=== PATIENT | female | born 1950 | race Caucasian/White ===

== ENCOUNTER → 2017-04-08 | Outpatient (REF) | payer MEDICARE, MEDICAID ==
[~2017-04-08] MED LIST: /MOXI40TA OR; ALB2.5NEB INH; ALBUPOW9 INH; ALLO300T OR; ALLO300T2 PO; ASPI81TA21 PO; ASPI81TA45 OR; ASPI81TA51 PO; ASPI81TA85 PO; AUGM500T34 PO; BUPR100T6 PO; CALC0.25 PO; CALC0.5C PO; COLA100C2 OR; DOC-8.6T PO; DOCU10ELUD PO; DOXY150C PO; FERR325T OR; FERR325T3 PO; FOLI1TAB86 PO; FURO80TA2 OR; FURO80TA2 PO; GABA300C2 PO; GABA600T3 OR; GLUC1000 OR; IPRA2IN INH; LASI80TA PO; LOPR100T OR; LOPR100T PO; MAGN400T5 PO; MAGNESIUM OXIDE PO; MECL-68 PO; METO100T PO; MICR10CA PO; NIAS10003 OR; NIASPAN PO; OXYGEN; PARO10TA10 PO; PAXI40TA OR; PLAV75TA2 OR; POTA20TA2 OR; PRED10TA2 PO; PRIL20CA PO; SIMV20TA2 OR; SIMV20TA2 PO; SITA50TAB PO; VICO5TAB PO; colcrys PO; januvia PO; losartin PO
== END ==
LOC: M LAB REF 13:04
PROVIDERS: ATTEND Internal Medicine Nephrology
DX: N39.0 Urinary tract infection, site not specified (principal)

== ENCOUNTER → 2017-04-09 | Outpatient (REF) | payer MEDICARE, MEDICAID ==
[2017-04-09 17:27] LABS: BASO % 0.4 % (0.0-1.0); EOS # 1.4 K/mm3 (0.0-0.50); EOS % 13.2 % (0.0-3.0); LARGE UNSTAINED CELL # 0.3 K/mm3 (0.0-0.4); LARGE UNSTAINED CELL % 2.8 % (0.0-4.0); LYMPH # 2.7 K/mm3 (1.5-4.5); LYMPH % 26.3 % (24.0-44.0); MEAN CORPUSCULAR HEMOGLOBIN 34.2 pg (27.0-33.0); MEAN CORPUSCULAR VOLUME 106.8 fl (80.0-96.0); MONO # 0.6 K/mm3 (0.0-0.8); MONO % 5.7 % (0.0-5.0); NEUTROPHILS # 5.4 K/mm3 (1.8-7.7); NEUTROPHILS % 51.7 % (36.0-66.0); PLATELET COUNT, AUTOMATED 249 k/mm3 (150-450); RED CELL DISTRIBUTION WIDTH 15.5 % (11.5-14.5); WHITE BLOOD COUNT 10.4 K/mm3 (4.0-10.0)
[2017-04-09 17:32] LABS: ADD MORPHOLOGY? YES
[2017-04-09 17:53] LABS: ALBUMIN/GLOBULIN RATIO 0.73 (1.00-1.93); BILIRUBIN,TOTAL 0.6 MG/DL (0.2-1.0); CALCIUM LEVEL 8.9 MG/DL (8.8-10.2); CREATININE FOR GFR 1.43 MG/DL (0.55-1.02); FREE T4 1.04 NG/DL (0.76-1.46); GLOMERULAR FILTRATION RATE 39.2 (>45); POTASSIUM SERUM 4.6 MEQ/L (3.5-5.1); TOTAL PROTEIN 7.1 GM/DL (6.4-8.2); URIC ACID 5.3 MG/DL (2.6-6.0)
== END ==
LOC: M LABDRAWC 16:22
PROVIDERS: ATTEND Family Medicine
DX: E11.22 Type 2 diabetes mellitus with diabetic chronic kidney disease (principal); N18.3 Chronic kidney disease, stage 3 (moderate); M10.9 Gout, unspecified; E66.01 Morbid (severe) obesity due to excess calories; E78.2 Mixed hyperlipidemia

== ENCOUNTER → 2017-06-28 | Outpatient (REF) | payer MEDICARE, MEDICAID | LOC: M LAB REF 17:14 | PROVIDERS: ATTEND Physician Assistant | DX: R39.0 Extravasation of urine (principal) ==

== ENCOUNTER → 2017-10-25 | Outpatient (CLI) | payer MEDICARE, MEDICAID ==
--- NOTE | 2017-10-25 15:22 | REP ---
Clinical: Pain and draining wound. Technique: AP, lateral, bilateral oblique views of the right elbow. Findings: The patient is status post open reduction and fixation for distal humeral fracture. No acute fracture dislocation. No subcutaneous emphysema. No significant foreign body. Lateral view best demonstrates mild swelling surrounding the distal humerus. Impression: Swelling. No acute fracture dislocation. No subcutaneous emphysema. Signed by Aakash Richard MD 10/25/2017 03:12 P
== END ==
LOC: M CLY 13:55
PROVIDERS: ATTEND Physician Assistant
DX: M25.521 Pain in right elbow (principal)

== ENCOUNTER 2017-11-27 18:59 | Inpatient (IN) | payer MEDICARE, MEDICAID ==
[2017-11-27 20:42] LABS: HEMATOCRIT 34.6 % (36.0-47.0); HEMOGLOBIN 11.5 g/dl (12.0-16.0); MEAN CORPUSCULAR HGB CONC 33.2 g/dl (32.0-36.5); MEAN CORPUSCULAR VOLUME 99.1 fl (80.0-96.0); PLATELET COUNT, AUTOMATED 147 10^3/uL (150-450); RED BLOOD COUNT 3.49 10^6/uL (4.00-5.40); WHITE BLOOD COUNT 19.2 10^3/uL (4.0-10.0)
[2017-11-27 20:56] LABS: ALBUMIN 2.1 GM/DL (3.2-5.2); ALKALINE PHOSPHATASE 120 U/L (45-117); ALT/SGPT 13 U/L (12-78); ANION GAP 9 MEQ/L (8-16); AST/SGOT 17 U/L (7-37); BILIRUBIN,DIRECT 0.4 MG/DL (0.0-0.2); BILIRUBIN,TOTAL 1.3 MG/DL (0.2-1.0); BLOOD UREA NITROGEN 62 MG/DL (7-18); CALCIUM LEVEL 9.2 MG/DL (8.8-10.2); CARBON DIOXIDE LEVEL 28 MEQ/L (21-32); CHLORIDE LEVEL 105 MEQ/L (98-107); CREATININE FOR GFR 3.28 MG/DL (0.55-1.02); GLUCOSE, FASTING 156 MG/DL (80-110); POTASSIUM SERUM 4.2 MEQ/L (3.5-5.1); SODIUM LEVEL 142 MEQ/L (136-145); TOTAL PROTEIN 6.3 GM/DL (6.4-8.2)
[2017-11-27 21:02] LABS: ADD MANUAL DIFFER YES; DIFF SLIDE NUMBER 183; LEFT SHIFT POS FLAG; POSITIVE MORPH POS FLAG; WBC SCAT POS FLAG
[2017-11-27] MEDS: CLINDAMYCIN 900 MG in APPROPRIATE DILUENT 1 EA IV (21:15)
[2017-11-27 21:16] LABS: ERYTHROCYTE SEDIMENTATION RATE 70 mm/hr (0-30)
[2017-11-27 21:43] LABS: EOSINOPHILS 1 % (0-5); LYMPHOCYTES 6 % (16-52); MONOCYTES 4 % (0-8); NEUTROPHILS 89 % (35-75); PLATELET ESTIMATE NORMAL (NORMAL)
[2017-11-27 22:41] LABS: LACTIC ACID SEPSIS PROTOCOL 3.7 MMOL/L (0.4-2.0)
[2017-11-27] MEDS: NS 500 ML IV (23:00)
[2017-11-28] MEDS: DILUENT IV
[2017-11-28] MEDS: CEFTAROLINE FOSAMIL IV
[2017-11-28] MEDS ORDERED: GLUCAGON FOR INJ 1 MG VIAL (J1610) SC (01:00)
[2017-11-28] MEDS: SODIUM CHLORIDE 0.9% 1000 ML IV (01:00)
[2017-11-28] MEDS ORDERED: DEXTROSE 50% 50 ML SYRINGE IV (01:00)
[2017-11-28] MEDS ORDERED: GLUCOSE 4 GM CHEW TABLET PO (01:00)
[2017-11-28] MEDS: SIMVASTATIN 20 MG TAB PO ×2 (02:45→21:25)
[2017-11-28 03:10] LABS: OSMOLALITY SERUM 313 MOSM/KG (280-301)
[2017-11-28 05:49] LABS: OSMOLALITY URINE 395 MOSM/KG (500-800)
[2017-11-28 05:50] LABS: APPEARANCE, URINE HAZY (CLEAR); BACTERIA, URINE AUTO NEGATIVE (NEGATIVE); BILIRUBIN, URINE AUTO NEGATIVE (NEGATIVE); BLOOD, URINE BLOOD NEGATIVE (NEGATIVE); COLOR, URINE YELLOW (YELLOW); GLUCOSE, URINE (UA) AUTO NEGATIVE (NEGATIVE); KETONE, URINE AUTO NEGATIVE (NEGATIVE); LEUKOCYTE ESTERASE, URINE AUTO 2+ (NEGATIVE); NITRITE, URINE AUTO NEGATIVE (NEGATIVE); PROTEIN, URINE AUTO NEGATIVE (NEGATIVE); RBC, URINE AUTO 2 /HPF (0-3); SPECIFIC GRAVITY URINE AUTO 1.012 (1.002-1.035); SQUAMOUS EPITHELIAL CELL UR AU 3 /HPF (0-6); TRANSITIONAL EPITHELIAL AUTO 1 /HPF; UROBILINOGEN, URINE AUTO 0.2 mg/dL (0.0-2.0); WBC, URINE AUTO 13 /HPF (0-3)
[2017-11-28] MEDS: HEPARIN SOD (PORCINE) 5000 UNITS/ML VIAL SC ×3 (05:53→21:29)
[2017-11-28 06:01] LABS: CREATININE,RANDOM URINE 84.6 MG/DL; SODIUM,RANDOM URINE 13 MEQ/L
[2017-11-28 06:50] LABS: HEMATOCRIT 32.2 % (36.0-47.0); HEMOGLOBIN 10.8 g/dl (12.0-16.0); MEAN CORPUSCULAR HEMOGLOBIN 32.7 pg (27.0-33.0); MEAN CORPUSCULAR HGB CONC 33.5 g/dl (32.0-36.5); MEAN CORPUSCULAR VOLUME 97.6 fl (80.0-96.0); PLATELET COUNT, AUTOMATED 141 10^3/uL (150-450); RED CELL DISTRIBUTION WIDTH 14.7 % (11.5-14.5); WHITE BLOOD COUNT 18.2 10^3/uL (4.0-10.0)
[2017-11-28 07:12] LABS: ANION GAP 9 MEQ/L (8-16); BLOOD UREA NITROGEN 58 MG/DL (7-18); CALCIUM LEVEL 8.8 MG/DL (8.8-10.2); CARBON DIOXIDE LEVEL 27 MEQ/L (21-32); CHLORIDE LEVEL 107 MEQ/L (98-107); CREATININE FOR GFR 2.95 MG/DL (0.55-1.02); GLUCOSE, FASTING 171 MG/DL (80-110); POTASSIUM SERUM 4.1 MEQ/L (3.5-5.1); SODIUM LEVEL 143 MEQ/L (136-145)
[2017-11-28] MEDS: HumaLOG INSULIN (NovoLOG) PER UNIT SC ×4 (07:30→21:00)
[2017-11-28] MEDS: PIPERACILLIN/TAZOBACTAM SOD 2.25 GM in APPROPRIATE DILUENT 1 EA IV ×3 (10:00→21:29)
[2017-11-28] MEDS: guaiFENesin ER 600 MG TAB PO ×2 (10:27→21:25)
[2017-11-28] MEDS: FLUoxetine 20 MG CAP PO (10:27)
[2017-11-28] MEDS: buPROPion (WELLBUTRIN SR) 100 MG SR TAB PO ×2 (10:27→21:25)
[2017-11-28] MEDS: ASPIRIN 81 MG ENTERIC TAB PO (10:27)
[2017-11-28] MEDS: ONDANSETRON 4MG/2ML VIAL (J2405) IV (10:28)
[2017-11-28] MEDS: METOPROLOL TARTRATE 100 MG TAB PO (10:28)
[2017-11-28] MEDS: VANCOMYCIN HCL 1,000 MG, VIAL MATE ADAPTER 1 EACH in D5W 250 ML IV (11:00)
[2017-11-28 12:01] LABS: BEDSIDE GLUCOSE 144 MG/DL (80-115)
[2017-11-28 17:26] LABS: BEDSIDE GLUCOSE 96 MG/DL (80-115)
[2017-11-28] MEDS: SENOKOT S TAB PO (21:25)
[2017-11-28 21:44] LABS: BEDSIDE GLUCOSE 114 MG/DL (80-115)
[2017-11-28 21:48] LABS: POTASSIUM RANDOM URINE 39.1 MEQ/L
[2017-11-29] MEDS: PIPERACILLIN/TAZOBACTAM SOD 2.25 GM in APPROPRIATE DILUENT 1 EA IV ×4 (04:28→21:46)
[2017-11-29] MEDS: HEPARIN SOD (PORCINE) 5000 UNITS/ML VIAL SC ×3 (05:23→21:46)
[2017-11-29] MEDS: VANCOMYCIN HCL 750 MG, VIAL MATE ADAPTER 1 EACH in D5W 250 ML IV ×2 (05:23→18:11)
[2017-11-29 07:09] LABS: HEMATOCRIT 31.5 % (36.0-47.0); HEMOGLOBIN 10.4 g/dl (12.0-16.0); MEAN CORPUSCULAR HEMOGLOBIN 32.4 pg (27.0-33.0); MEAN CORPUSCULAR VOLUME 98.1 fl (80.0-96.0); PLATELET COUNT, AUTOMATED 138 10^3/uL (150-450); RED BLOOD COUNT 3.21 10^6/uL (4.00-5.40); RED CELL DISTRIBUTION WIDTH 14.6 % (11.5-14.5); WHITE BLOOD COUNT 11.7 10^3/uL (4.0-10.0)
[2017-11-29] MEDS: HumaLOG INSULIN (NovoLOG) PER UNIT SC ×4 (07:30→20:18)
[2017-11-29 07:42] LABS: ANION GAP 7 MEQ/L (8-16); BLOOD UREA NITROGEN 55 MG/DL (7-18); CALCIUM LEVEL 9.1 MG/DL (8.8-10.2); CARBON DIOXIDE LEVEL 27 MEQ/L (21-32); CHLORIDE LEVEL 108 MEQ/L (98-107); CREATININE FOR GFR 2.62 MG/DL (0.55-1.02); GLOMERULAR FILTRATION RATE 19.5 (>45); GLUCOSE, FASTING 131 MG/DL (80-110); POTASSIUM SERUM 3.5 MEQ/L (3.5-5.1); SODIUM LEVEL 142 MEQ/L (136-145)
[2017-11-29] MEDS: METOPROLOL TARTRATE 100 MG TAB PO (08:28)
[2017-11-29] MEDS: buPROPion (WELLBUTRIN SR) 100 MG SR TAB PO ×2 (08:28→20:23)
[2017-11-29] MEDS: ASPIRIN 81 MG ENTERIC TAB PO (08:28)
[2017-11-29] MEDS: FLUoxetine 20 MG CAP PO (08:28)
[2017-11-29] MEDS: guaiFENesin ER 600 MG TAB PO ×2 (08:28→20:23)
[2017-11-29 12:22] LABS: BEDSIDE GLUCOSE 92 MG/DL (80-115)
[2017-11-29 17:13] LABS: BEDSIDE GLUCOSE 111 MG/DL (80-115)
[2017-11-29 20:13] LABS: BEDSIDE GLUCOSE 119 MG/DL (80-115)
[2017-11-29] MEDS: SIMVASTATIN 20 MG TAB PO (20:23)
[2017-11-29] MEDS: SENOKOT S TAB PO (20:23)
[2017-11-29] MEDS: ONDANSETRON 4MG/2ML VIAL (J2405) IV (23:58)
[2017-11-29] MEDS: ACETAMINOPHEN TAB 650MG DOSE (2X325MG) PO (23:59)
[2017-11-30] MEDS: PIPERACILLIN/TAZOBACTAM SOD 2.25 GM in APPROPRIATE DILUENT 1 EA IV ×4 (03:46→22:15)
[2017-11-30 05:29] LABS: HEMATOCRIT 30.9 % (36.0-47.0); HEMOGLOBIN 10.3 g/dl (12.0-16.0); MEAN CORPUSCULAR HEMOGLOBIN 32.7 pg (27.0-33.0); MEAN CORPUSCULAR HGB CONC 33.3 g/dl (32.0-36.5); MEAN CORPUSCULAR VOLUME 98.1 fl (80.0-96.0); PLATELET COUNT, AUTOMATED 164 10^3/uL (150-450); RED BLOOD COUNT 3.15 10^6/uL (4.00-5.40); RED CELL DISTRIBUTION WIDTH 14.7 % (11.5-14.5); WHITE BLOOD COUNT 9.5 10^3/uL (4.0-10.0)
[2017-11-30] MEDS: VANCOMYCIN HCL 750 MG, VIAL MATE ADAPTER 1 EACH in D5W 250 ML IV ×2 (05:33→17:31)
[2017-11-30] MEDS: HEPARIN SOD (PORCINE) 5000 UNITS/ML VIAL SC ×3 (05:34→22:14)
[2017-11-30 05:54] LABS: ALBUMIN 1.8 GM/DL (3.2-5.2); ALBUMIN/GLOBULIN RATIO 0.55 (1.00-1.93); ALKALINE PHOSPHATASE 169 U/L (45-117); ALT/SGPT 18 U/L (12-78); ANION GAP 9 MEQ/L (8-16); AST/SGOT 34 U/L (7-37); BILIRUBIN,TOTAL 2.2 MG/DL (0.2-1.0); BLOOD UREA NITROGEN 47 MG/DL (7-18); CARBON DIOXIDE LEVEL 26 MEQ/L (21-32); CHLORIDE LEVEL 108 MEQ/L (98-107); GLOMERULAR FILTRATION RATE 23.8 (>45); GLUCOSE, FASTING 89 MG/DL (80-110); POTASSIUM SERUM 3.5 MEQ/L (3.5-5.1); SODIUM LEVEL 143 MEQ/L (136-145); TOTAL PROTEIN 5.1 GM/DL (6.4-8.2); VANCOMYCIN LEVEL TROUGH 17.6 UG/ML (10.0-20.0)
[2017-11-30] MEDS: HumaLOG INSULIN (NovoLOG) PER UNIT SC ×4 (07:30→21:00)
[2017-11-30] MEDS: guaiFENesin ER 600 MG TAB PO ×2 (09:01→22:13)
[2017-11-30] MEDS: buPROPion (WELLBUTRIN SR) 100 MG SR TAB PO ×2 (09:01→22:13)
[2017-11-30] MEDS: ASPIRIN 81 MG ENTERIC TAB PO (09:01)
[2017-11-30] MEDS: METOPROLOL TARTRATE 100 MG TAB PO (09:01)
[2017-11-30] MEDS: FLUoxetine 20 MG CAP PO (09:01)
[2017-11-30] MEDS: ONDANSETRON 4MG/2ML VIAL (J2405) IV ×2 (10:11→15:53)
[2017-11-30 12:00] LABS: BEDSIDE GLUCOSE 173 MG/DL (80-115)
[2017-11-30] MEDS: SENOKOT S TAB PO (22:13)
[2017-11-30] MEDS: SIMVASTATIN 20 MG TAB PO (22:14)
[2017-12-01 03:12] LABS: BEDSIDE GLUCOSE 147 MG/DL (80-115)
[2017-12-01 03:12] LABS: BEDSIDE GLUCOSE 117 MG/DL (80-115)
[2017-12-01] MEDS: PIPERACILLIN/TAZOBACTAM SOD 2.25 GM in APPROPRIATE DILUENT 1 EA IV ×2 (04:08→09:16)
[2017-12-01] MEDS: HEPARIN SOD (PORCINE) 5000 UNITS/ML VIAL SC ×3 (05:46→20:49)
[2017-12-01] MEDS: VANCOMYCIN HCL 750 MG, VIAL MATE ADAPTER 1 EACH in D5W 250 ML IV (05:46)
[2017-12-01 06:43] LABS: HEMATOCRIT 30.9 % (36.0-47.0); HEMOGLOBIN 10.4 g/dl (12.0-16.0); MEAN CORPUSCULAR HEMOGLOBIN 32.6 pg (27.0-33.0); MEAN CORPUSCULAR HGB CONC 33.7 g/dl (32.0-36.5); MEAN CORPUSCULAR VOLUME 96.9 fl (80.0-96.0); PLATELET COUNT, AUTOMATED 202 10^3/uL (150-450); RED BLOOD COUNT 3.19 10^6/uL (4.00-5.40); RED CELL DISTRIBUTION WIDTH 14.7 % (11.5-14.5); WHITE BLOOD COUNT 10.3 10^3/uL (4.0-10.0)
[2017-12-01 07:02] LABS: ANION GAP 9 MEQ/L (8-16); BLOOD UREA NITROGEN 38 MG/DL (7-18); CALCIUM LEVEL 8.5 MG/DL (8.8-10.2); CARBON DIOXIDE LEVEL 24 MEQ/L (21-32); CHLORIDE LEVEL 108 MEQ/L (98-107); CREATININE FOR GFR 2.08 MG/DL (0.55-1.02); GLOMERULAR FILTRATION RATE 25.4 (>45); GLUCOSE, FASTING 113 MG/DL (80-110); POTASSIUM SERUM 3.9 MEQ/L (3.5-5.1); SODIUM LEVEL 141 MEQ/L (136-145)
[2017-12-01] MEDS: HumaLOG INSULIN (NovoLOG) PER UNIT SC ×4 (07:31→20:01)
[2017-12-01] MEDS: buPROPion (WELLBUTRIN SR) 100 MG SR TAB PO ×2 (09:11→20:01)
[2017-12-01] MEDS: ASPIRIN 81 MG ENTERIC TAB PO (09:11)
[2017-12-01] MEDS: guaiFENesin ER 600 MG TAB PO ×2 (09:11→20:01)
[2017-12-01] MEDS: FLUoxetine 20 MG CAP PO (09:12)
[2017-12-01] MEDS: METOPROLOL TARTRATE 100 MG TAB PO (09:14)
[2017-12-01] MEDS: DOXYCYCLINE HYCLATE 100 MG TAB PO ×2 (11:02→20:01)
[2017-12-01 12:15] LABS: BEDSIDE GLUCOSE 156 MG/DL (80-115)
[2017-12-01] MEDS: LACTOBACILLUS ACIDOPHILUS CAP (BACID) PO (17:29)
[2017-12-01 18:43] LABS: BEDSIDE GLUCOSE 150 MG/DL (80-115)
[2017-12-01] MEDS: SIMVASTATIN 20 MG TAB PO (20:01)
[2017-12-01] MEDS: SENOKOT S TAB PO (20:01)
[2017-12-01 20:25] LABS: BEDSIDE GLUCOSE 160 MG/DL (80-115)
[2017-12-02] MEDS: HEPARIN SOD (PORCINE) 5000 UNITS/ML VIAL SC (05:19)
[2017-12-02 07:12] LABS: HEMATOCRIT 30.9 % (36.0-47.0); HEMOGLOBIN 10.4 g/dl (12.0-16.0); MEAN CORPUSCULAR HEMOGLOBIN 32.8 pg (27.0-33.0); MEAN CORPUSCULAR HGB CONC 33.7 g/dl (32.0-36.5); MEAN CORPUSCULAR VOLUME 97.5 fl (80.0-96.0); PLATELET COUNT, AUTOMATED 218 10^3/uL (150-450); RED BLOOD COUNT 3.17 10^6/uL (4.00-5.40); RED CELL DISTRIBUTION WIDTH 14.7 % (11.5-14.5); WHITE BLOOD COUNT 8.3 10^3/uL (4.0-10.0)
[2017-12-02 07:27] LABS: ANION GAP 9 MEQ/L (8-16); BLOOD UREA NITROGEN 32 MG/DL (7-18); CALCIUM LEVEL 8.7 MG/DL (8.8-10.2); CARBON DIOXIDE LEVEL 24 MEQ/L (21-32); CHLORIDE LEVEL 110 MEQ/L (98-107); CREATININE FOR GFR 1.83 MG/DL (0.55-1.02); GLOMERULAR FILTRATION RATE 29.5 (>45); GLUCOSE, FASTING 117 MG/DL (80-110); POTASSIUM SERUM 3.4 MEQ/L (3.5-5.1); SODIUM LEVEL 143 MEQ/L (136-145)
[2017-12-02] MEDS: buPROPion (WELLBUTRIN SR) 100 MG SR TAB PO (08:31)
[2017-12-02] MEDS: DOXYCYCLINE HYCLATE 100 MG TAB PO (08:31)
[2017-12-02] MEDS: ASPIRIN 81 MG ENTERIC TAB PO (08:31)
[2017-12-02] MEDS: guaiFENesin ER 600 MG TAB PO (08:31)
[2017-12-02] MEDS: LACTOBACILLUS ACIDOPHILUS CAP (BACID) PO ×2 (08:31→12:32)
[2017-12-02] MEDS: FLUoxetine 20 MG CAP PO (08:31)
[2017-12-02] MEDS: METOPROLOL TARTRATE 100 MG TAB PO (08:31)
[2017-12-02] MEDS: HumaLOG INSULIN (NovoLOG) PER UNIT SC ×2 (08:32→12:31)
[2017-12-02 12:23] LABS: BEDSIDE GLUCOSE 187 MG/DL (80-115)
== END 2017-12-02 14:15 | disposition home or self-care (01) | DRG 872 ==
LOC: M ED INP 11-28 00:11 → M MS5PR 11-28 02:30 → M ED 18:59
DX: A41.9 Sepsis, unspecified organism (principal); L03.116 Cellulitis of left lower limb; I50.32 Chronic diastolic (congestive) heart failure; I13.0 Hypertensive heart and chronic kidney disease with heart failure and stage 1 through stage 4 chronic kidney disease, or unspecified chronic kidney disease; N17.9 Acute kidney failure, unspecified; E87.2 Acidosis; E66.2 Morbid (severe) obesity with alveolar hypoventilation; Z68.42 Body mass index [BMI] 45.0-49.9, adult; E11.9 Type 2 diabetes mellitus without complications; F32.9 Major depressive disorder, single episode, unspecified; R65.20 Severe sepsis without septic shock; E78.00 Pure hypercholesterolemia, unspecified; N18.3 Chronic kidney disease, stage 3 (moderate); M10.9 Gout, unspecified; Z79.82 Long term (current) use of aspirin; Z79.899 Other long term (current) drug therapy

== ENCOUNTER → 2017-12-10 | Outpatient (REF) | payer MEDICARE, MEDICAID ==
[2017-12-10 18:00] LABS: ANION GAP 7 MEQ/L (8-16); BLOOD UREA NITROGEN 30 MG/DL (7-18); C REACTIVE PROTEIN QUANTITATIV 4.39 MG/DL (0.00-0.30); CALCIUM LEVEL 8.9 MG/DL (8.8-10.2); CARBON DIOXIDE LEVEL 26 MEQ/L (21-32); CHLORIDE LEVEL 109 MEQ/L (98-107); CREATININE FOR GFR 1.78 MG/DL (0.55-1.02); GLOMERULAR FILTRATION RATE 30.5 (>45); GLUCOSE, FASTING 164 MG/DL (80-110); SODIUM LEVEL 142 MEQ/L (136-145)
== END ==
LOC: M LABDRAWC 16:15
DX: N17.9 Acute kidney failure, unspecified (principal); L03.115 Cellulitis of right lower limb
CPT/HCPCS: 80048

== ENCOUNTER 2018-01-16 12:32 | Inpatient (IN) | payer MEDICARE, MEDICAID ==
[2018-01-16 15:46] LABS: HEMATOCRIT 37.6 % (36.0-47.0); HEMOGLOBIN 12.3 g/dl (12.0-16.0); MEAN CORPUSCULAR HEMOGLOBIN 33.4 pg (27.0-33.0); MEAN CORPUSCULAR HGB CONC 32.7 g/dl (32.0-36.5); MEAN CORPUSCULAR VOLUME 102.2 fl (80.0-96.0); PLATELET COUNT, AUTOMATED 206 10^3/uL (150-450); RED BLOOD COUNT 3.68 10^6/uL (4.00-5.40); RED CELL DISTRIBUTION WIDTH 16.4 % (11.5-14.5); WHITE BLOOD COUNT 21.1 10^3/uL (4.0-10.0)
[2018-01-16 15:47] LABS: ADD MANUAL DIFFER YES; DIFF SLIDE NUMBER 130; POS COUNT POS FLAG; POSITIVE MORPH POS FLAG
[2018-01-16] MEDS: CLINDAMYCIN 600 MG in APPROPRIATE DILUENT 1 EA IV (16:06)
[2018-01-16 16:07] LABS: ANISOCYTOSIS 1+; BANDS 12 % (< 11); LYMPHOCYTES 8 % (16-52); MONOCYTES 1 % (0-8); NEUTROPHILS 79 % (35-75); PLATELET ESTIMATE NORMAL (NORMAL)
[2018-01-16 16:09] LABS: ERYTHROCYTE SEDIMENTATION RATE 92 mm/hr (0-30)
[2018-01-16 16:15] LABS: ANION GAP 12 MEQ/L (8-16); BLOOD UREA NITROGEN 62 MG/DL (7-18); CARBON DIOXIDE LEVEL 26 MEQ/L (21-32); CHLORIDE LEVEL 100 MEQ/L (98-107); CREATININE FOR GFR 3.48 MG/DL (0.55-1.30); GLUCOSE, FASTING 198 MG/DL (70-100); POTASSIUM SERUM 4.2 MEQ/L (3.5-5.1); SODIUM LEVEL 138 MEQ/L (136-145)
[2018-01-16 16:15] LABS: LACTIC ACID SEPSIS PROTOCOL 4.8 MMOL/L (0.4-2.0)
[2018-01-16] MEDS: SODIUM CHLORIDE IV (16:22)
[2018-01-16] MEDS: HumaLOG INSULIN (NovoLOG) PER UNIT SC (21:00)
[2018-01-16] MEDS ORDERED: VANCOMYCIN HCL 750 MG, VIAL MATE ADAPTER 1 EACH in D5W 250 ML IV (21:15)
[2018-01-16] MEDS ORDERED: DEXTROSE 50% 50 ML SYRINGE IV (21:30)
[2018-01-16] MEDS ORDERED: GLUCOSE 4 GM CHEW TABLET PO (21:30)
[2018-01-16] MEDS ORDERED: PERCOCET 5MG/325MG TAB PO (21:30)
[2018-01-16] MEDS ORDERED: ONDANSETRON 4MG/2ML VIAL (J2405) IV (21:30)
[2018-01-16] MEDS ORDERED: GLUCAGON FOR INJ 1 MG VIAL (J1610) SC (21:30)
[2018-01-16] MEDS ORDERED: ACETAMINOPHEN TAB 650MG DOSE (2X325MG) PO (21:30)
[2018-01-16 21:51] LABS: APPEARANCE, URINE HAZY (CLEAR); BACTERIA, URINE AUTO 1+ (NEGATIVE); BILIRUBIN, URINE AUTO NEGATIVE (NEGATIVE); BLOOD, URINE BLOOD 1+ (NEGATIVE); COLOR, URINE YELLOW (YELLOW); GLUCOSE, URINE (UA) AUTO NEGATIVE (NEGATIVE); KETONE, URINE AUTO NEGATIVE (NEGATIVE); LEUKOCYTE ESTERASE, URINE AUTO 2+ (NEGATIVE); NITRITE, URINE AUTO NEGATIVE (NEGATIVE); PROTEIN, URINE AUTO NEGATIVE (NEGATIVE); RBC, URINE AUTO 1 /HPF (0-3); SPECIFIC GRAVITY URINE AUTO 1.012 (1.002-1.035); SQUAMOUS EPITHELIAL CELL UR AU 2 /HPF (0-6); TRANSITIONAL EPITHELIAL AUTO <1 /HPF; UROBILINOGEN, URINE AUTO 0.2 mg/dL (0.0-2.0); WBC, URINE AUTO 56 /HPF (0-3)
[2018-01-16 21:55] LABS: OSMOLALITY URINE 373 MOSM/KG (500-800)
[2018-01-16] MEDS ORDERED: VANCOMYCIN INTERMITTENT/PULSE DOSING BY CLINICAL PHARMACIST PER DOSING PROTOCOL XX (22:00)
[2018-01-16 22:15] LABS: CHLORIDE,RANDOM URINE < 10 MEQ/L; POTASSIUM RANDOM URINE 61.5 MEQ/L; SODIUM,RANDOM URINE 13 MEQ/L; TOTAL PROTEIN,RANDOM URINE 65.4 MG/DL (0.0-12.0)
[2018-01-16 22:36] LABS: BEDSIDE GLUCOSE 105 MG/DL (80-115)
[2018-01-16] MEDS: CALCITRIOL 0.25 MCG CAP (S0169) PO (23:47)
[2018-01-16] MEDS: buPROPion (WELLBUTRIN SR) 100 MG SR TAB PO (23:47)
[2018-01-16] MEDS: SIMVASTATIN 20 MG TAB PO (23:47)
[2018-01-16] MEDS: SENOKOT S TAB PO (23:48)
[2018-01-16] MEDS: GABAPENTIN 300 MG CAP PO (23:48)
[2018-01-16] MEDS: VANCOMYCIN HCL 1,000 MG, VIAL MATE ADAPTER 1 EACH in D5W 250 ML IV (23:48)
[2018-01-16] MEDS: HEPARIN SOD (PORCINE) 5000 UNITS/ML VIAL SC (23:49)
[2018-01-17 00:08] LABS: LACTIC ACID SEPSIS PROTOCOL 2.5 MMOL/L (0.4-2.0)
[2018-01-17] MEDS: CEFEPIME HCL 1 GM in D5W MINI-BAG PLUS 50 ML IV (00:30)
[2018-01-17] MEDS: NS 1,000 ML IV (01:30)
[2018-01-17] MEDS: HEPARIN SOD (PORCINE) 5000 UNITS/ML VIAL SC ×3 (05:48→22:31)
[2018-01-17 06:18] LABS: HEMATOCRIT 30.5 % (36.0-47.0); MEAN CORPUSCULAR HEMOGLOBIN 32.5 pg (27.0-33.0); MEAN CORPUSCULAR HGB CONC 33.1 g/dl (32.0-36.5); MEAN CORPUSCULAR VOLUME 98.1 fl (80.0-96.0); PLATELET COUNT, AUTOMATED 169 10^3/uL (150-450); RED BLOOD COUNT 3.11 10^6/uL (4.00-5.40); RED CELL DISTRIBUTION WIDTH 15.8 % (11.5-14.5); WHITE BLOOD COUNT 15.2 10^3/uL (4.0-10.0)
[2018-01-17 06:23] LABS: HEMOGLOBIN 10.1 g/dl (12.0-16.0)
[2018-01-17 06:46] LABS: LACTIC ACID SEPSIS PROTOCOL 1.8 MMOL/L (0.4-2.0)
[2018-01-17 06:53] LABS: ANION GAP 8 MEQ/L (8-16); BLOOD UREA NITROGEN 58 MG/DL (7-18); CALCIUM LEVEL 8.6 MG/DL (8.8-10.2); CARBON DIOXIDE LEVEL 25 MEQ/L (21-32); CHLORIDE LEVEL 108 MEQ/L (98-107); CREATININE FOR GFR 2.81 MG/DL (0.55-1.30); GLUCOSE, FASTING 119 MG/DL (70-100); MAGNESIUM LEVEL 1.8 MG/DL (1.8-2.4); POTASSIUM SERUM 3.7 MEQ/L (3.5-5.1); SODIUM LEVEL 141 MEQ/L (136-145)
[2018-01-17] MEDS: HumaLOG INSULIN (NovoLOG) PER UNIT SC ×4 (07:30→20:43)
[2018-01-17] MEDS: METOPROLOL TARTRATE 100 MG TAB PO (08:12)
[2018-01-17 08:28] LABS: ESTIMATED AVERAGE GLUCOSE 134 MG/DL (60-110); HEMOGLOBIN A1c 6.3 %
[2018-01-17] MEDS: VANCOMYCIN HCL 1,000 MG, VIAL MATE ADAPTER 1 EACH in D5W 250 ML IV (09:16)
[2018-01-17] MEDS: NIACIN SR (NIASPAN) 500 MG TAB PO (09:16)
[2018-01-17] MEDS: ALLOPURINOL 300 MG TAB PO (09:17)
[2018-01-17] MEDS: ASPIRIN 81 MG ENTERIC TAB PO (09:17)
[2018-01-17] MEDS: SENOKOT S TAB PO ×2 (09:17→22:31)
[2018-01-17] MEDS: buPROPion (WELLBUTRIN SR) 100 MG SR TAB PO ×2 (09:17→21:00)
[2018-01-17] MEDS: FLUoxetine 20 MG CAP PO (09:17)
[2018-01-17] MEDS: MAGNESIUM OXIDE 400 MG TAB (MAG-OX) PO (09:21)
[2018-01-17] MEDS: SODIUM CHLORIDE 0.9% 1000 ML IV (10:33)
[2018-01-17 11:36] LABS: BEDSIDE GLUCOSE 122 MG/DL (80-115)
[2018-01-17] MEDS: GABAPENTIN 300 MG CAP PO (22:31)
[2018-01-17] MEDS: SIMVASTATIN 20 MG TAB PO (22:31)
[2018-01-17] MEDS: CALCITRIOL 0.25 MCG CAP (S0169) PO (22:31)
[2018-01-18] MEDS: CEFEPIME HCL 0.25 GM in D5W 50 ML IV ×2 (00:13→23:15)
[2018-01-18] MEDS ORDERED: SLF 3 ML SYR IV (03:15)
[2018-01-18] MEDS: HEPARIN SOD (PORCINE) 5000 UNITS/ML VIAL SC ×3 (06:15→22:45)
[2018-01-18] MEDS: SLF 3 ML SYR IV ×3 (06:16→22:46)
[2018-01-18 06:35] LABS: HEMATOCRIT 28.5 % (36.0-47.0); HEMOGLOBIN 9.5 g/dl (12.0-16.0); MEAN CORPUSCULAR HEMOGLOBIN 33.2 pg (27.0-33.0); MEAN CORPUSCULAR HGB CONC 33.3 g/dl (32.0-36.5); MEAN CORPUSCULAR VOLUME 99.7 fl (80.0-96.0); PLATELET COUNT, AUTOMATED 160 10^3/uL (150-450); RED BLOOD COUNT 2.86 10^6/uL (4.00-5.40); RED CELL DISTRIBUTION WIDTH 15.9 % (11.5-14.5); WHITE BLOOD COUNT 10.8 10^3/uL (4.0-10.0)
[2018-01-18 07:03] LABS: ANION GAP 6 MEQ/L (8-16); BLOOD UREA NITROGEN 46 MG/DL (7-18); CALCIUM LEVEL 8.4 MG/DL (8.8-10.2); CARBON DIOXIDE LEVEL 25 MEQ/L (21-32); CHLORIDE LEVEL 111 MEQ/L (98-107); CREATININE FOR GFR 2.25 MG/DL (0.55-1.30); GLOMERULAR FILTRATION RATE 23.2 (>45); GLUCOSE, FASTING 122 MG/DL (70-100); MAGNESIUM LEVEL 1.9 MG/DL (1.8-2.4); POTASSIUM SERUM 3.8 MEQ/L (3.5-5.1); SODIUM LEVEL 142 MEQ/L (136-145); VANCOMYCIN RANDOM 15.9 UG/ML
[2018-01-18 08:57] LABS: BEDSIDE GLUCOSE 126 MG/DL (80-115)
[2018-01-18 08:57] LABS: BEDSIDE GLUCOSE 152 MG/DL (80-115)
[2018-01-18] MEDS: HumaLOG INSULIN (NovoLOG) PER UNIT SC ×4 (09:21→21:00)
[2018-01-18] MEDS: VANCOMYCIN HCL 1,000 MG, VIAL MATE ADAPTER 1 EACH in D5W 250 ML IV (09:21)
[2018-01-18] MEDS: METOPROLOL TARTRATE 100 MG TAB PO (09:22)
[2018-01-18] MEDS: SENOKOT S TAB PO ×2 (09:22→22:45)
[2018-01-18] MEDS: FLUoxetine 20 MG CAP PO (09:22)
[2018-01-18] MEDS: ASPIRIN 81 MG ENTERIC TAB PO (09:22)
[2018-01-18] MEDS: ALLOPURINOL 300 MG TAB PO (09:22)
[2018-01-18] MEDS: MAGNESIUM OXIDE 400 MG TAB (MAG-OX) PO (09:22)
[2018-01-18] MEDS: NIACIN SR (NIASPAN) 500 MG TAB PO (10:38)
[2018-01-18] MEDS: buPROPion (WELLBUTRIN SR) 100 MG SR TAB PO ×2 (10:38→22:46)
[2018-01-18 12:21] LABS: BEDSIDE GLUCOSE 106 MG/DL (80-115)
[2018-01-18] MEDS: NYSTATIN 100,000 UNITS/GM TOPICAL PWD 15 GM TOP ×2 (14:30→22:44)
[2018-01-18 18:01] LABS: BEDSIDE GLUCOSE 129 MG/DL (80-115)
[2018-01-18] MEDS: SIMVASTATIN 20 MG TAB PO (22:45)
[2018-01-18] MEDS: CALCITRIOL 0.25 MCG CAP (S0169) PO (22:45)
[2018-01-18] MEDS: GABAPENTIN 300 MG CAP PO (22:46)
[2018-01-18 22:47] LABS: BEDSIDE GLUCOSE 158 MG/DL (80-115)
[2018-01-19 05:29] LABS: HEMATOCRIT 29.4 % (36.0-47.0); HEMOGLOBIN 9.7 g/dl (12.0-16.0); MEAN CORPUSCULAR HEMOGLOBIN 32.4 pg (27.0-33.0); MEAN CORPUSCULAR VOLUME 98.3 fl (80.0-96.0); PLATELET COUNT, AUTOMATED 183 10^3/uL (150-450); RED BLOOD COUNT 2.99 10^6/uL (4.00-5.40); WHITE BLOOD COUNT 8.1 10^3/uL (4.0-10.0)
[2018-01-19 06:01] LABS: ANION GAP 7 MEQ/L (8-16); BLOOD UREA NITROGEN 39 MG/DL (7-18); CALCIUM LEVEL 8.9 MG/DL (8.8-10.2); CARBON DIOXIDE LEVEL 26 MEQ/L (21-32); CHLORIDE LEVEL 110 MEQ/L (98-107); CREATININE FOR GFR 1.91 MG/DL (0.55-1.30); GLOMERULAR FILTRATION RATE 28.1 (>45); GLUCOSE, FASTING 123 MG/DL (70-100); MAGNESIUM LEVEL 1.9 MG/DL (1.8-2.4); POTASSIUM SERUM 3.6 MEQ/L (3.5-5.1); SODIUM LEVEL 143 MEQ/L (136-145); VANCOMYCIN RANDOM 17.7 UG/ML
[2018-01-19] MEDS: HEPARIN SOD (PORCINE) 5000 UNITS/ML VIAL SC ×3 (06:31→21:29)
[2018-01-19] MEDS: SLF 3 ML SYR IV ×3 (06:32→21:29)
[2018-01-19] MEDS: HumaLOG INSULIN (NovoLOG) PER UNIT SC ×4 (07:30→20:54)
[2018-01-19] MEDS: ALLOPURINOL 300 MG TAB PO (08:50)
[2018-01-19] MEDS: VANCOMYCIN HCL 1,000 MG, VIAL MATE ADAPTER 1 EACH in D5W 250 ML IV (08:50)
[2018-01-19] MEDS: MAGNESIUM OXIDE 400 MG TAB (MAG-OX) PO (08:50)
[2018-01-19] MEDS: NIACIN SR (NIASPAN) 500 MG TAB PO (08:51)
[2018-01-19] MEDS: SENOKOT S TAB PO ×2 (08:51→21:29)
[2018-01-19] MEDS: ASPIRIN 81 MG ENTERIC TAB PO (08:51)
[2018-01-19] MEDS: METOPROLOL TARTRATE 100 MG TAB PO (08:51)
[2018-01-19] MEDS: FLUoxetine 20 MG CAP PO (08:51)
[2018-01-19] MEDS: NYSTATIN 100,000 UNITS/GM TOPICAL PWD 15 GM TOP ×2 (08:52→21:00)
[2018-01-19] MEDS: buPROPion (WELLBUTRIN SR) 100 MG SR TAB PO ×2 (12:14→21:29)
[2018-01-19 12:55] LABS: BEDSIDE GLUCOSE 143 MG/DL (80-115)
[2018-01-19] MEDS ORDERED: DIAPER RELIEF PASTE (DESITIN) 60GM TOP (13:30)
[2018-01-19 16:23] LABS: BEDSIDE GLUCOSE 170 MG/DL (80-115)
[2018-01-19 21:06] LABS: BEDSIDE GLUCOSE 87 MG/DL (80-115)
[2018-01-19] MEDS: SIMVASTATIN 20 MG TAB PO (21:28)
[2018-01-19] MEDS: GABAPENTIN 300 MG CAP PO (21:28)
[2018-01-19] MEDS: CALCITRIOL 0.25 MCG CAP (S0169) PO (21:28)
[2018-01-20] MEDS: CEFEPIME HCL 0.25 GM in D5W 50 ML IV (00:09)
[2018-01-20] MEDS: SLF 3 ML SYR IV ×2 (06:29→14:00)
[2018-01-20] MEDS: HEPARIN SOD (PORCINE) 5000 UNITS/ML VIAL SC ×2 (06:30→14:00)
[2018-01-20 07:11] LABS: HEMATOCRIT 29.5 % (36.0-47.0); HEMOGLOBIN 9.8 g/dl (12.0-16.0); MEAN CORPUSCULAR HEMOGLOBIN 33.2 pg (27.0-33.0); MEAN CORPUSCULAR HGB CONC 33.2 g/dl (32.0-36.5); PLATELET COUNT, AUTOMATED 210 10^3/uL (150-450); RED BLOOD COUNT 2.95 10^6/uL (4.00-5.40); RED CELL DISTRIBUTION WIDTH 15.9 % (11.5-14.5)
[2018-01-20 07:23] LABS: ANION GAP 6 MEQ/L (8-16); BLOOD UREA NITROGEN 35 MG/DL (7-18); CALCIUM LEVEL 8.7 MG/DL (8.8-10.2); CARBON DIOXIDE LEVEL 26 MEQ/L (21-32); CHLORIDE LEVEL 112 MEQ/L (98-107); CREATININE FOR GFR 1.73 MG/DL (0.55-1.30); GLOMERULAR FILTRATION RATE 31.5 (>45); GLUCOSE, FASTING 117 MG/DL (70-100); MAGNESIUM LEVEL 1.7 MG/DL (1.8-2.4); POTASSIUM SERUM 3.9 MEQ/L (3.5-5.1); SODIUM LEVEL 144 MEQ/L (136-145)
[2018-01-20] MEDS: HumaLOG INSULIN (NovoLOG) PER UNIT SC ×2 (07:30→12:23)
[2018-01-20] MEDS: VANCOMYCIN HCL 1,000 MG, VIAL MATE ADAPTER 1 EACH in D5W 250 ML IV (08:49)
[2018-01-20] MEDS: buPROPion (WELLBUTRIN SR) 100 MG SR TAB PO (08:50)
[2018-01-20] MEDS: METOPROLOL TARTRATE 100 MG TAB PO (08:51)
[2018-01-20] MEDS: ASPIRIN 81 MG ENTERIC TAB PO (08:51)
[2018-01-20] MEDS: FLUoxetine 20 MG CAP PO (08:52)
[2018-01-20] MEDS: SENOKOT S TAB PO (08:52)
[2018-01-20] MEDS: ALLOPURINOL 300 MG TAB PO (08:52)
[2018-01-20] MEDS: NIACIN SR (NIASPAN) 500 MG TAB PO (08:52)
[2018-01-20] MEDS: MAGNESIUM OXIDE 400 MG TAB (MAG-OX) PO (08:52)
[2018-01-20] MEDS: NYSTATIN 100,000 UNITS/GM TOPICAL PWD 15 GM TOP (09:00)
[2018-01-20] MEDS: MAG SULF 1GM/100ML (MAG RUN) 1 GM in APPROPRIATE DILUENT 1 EA IV ×2 (12:23→13:30)
[2018-01-20 13:11] LABS: BEDSIDE GLUCOSE 165 MG/DL (80-115)
== END 2018-01-20 17:40 | disposition home health service (06) | DRG 872 ==
LOC: M MS4PR 01-19 17:20 → M PCU 01-17 16:20 → M ED 12:32 → M ED INP 21:28
DX: A41.9 Sepsis, unspecified organism (principal); L03.115 Cellulitis of right lower limb; I50.32 Chronic diastolic (congestive) heart failure; I13.0 Hypertensive heart and chronic kidney disease with heart failure and stage 1 through stage 4 chronic kidney disease, or unspecified chronic kidney disease; N18.4 Chronic kidney disease, stage 4 (severe); N17.9 Acute kidney failure, unspecified; Z68.42 Body mass index [BMI] 45.0-49.9, adult; N39.0 Urinary tract infection, site not specified; R65.20 Severe sepsis without septic shock; E66.01 Morbid (severe) obesity due to excess calories; E11.22 Type 2 diabetes mellitus with diabetic chronic kidney disease; E11.40 Type 2 diabetes mellitus with diabetic neuropathy, unspecified; F32.9 Major depressive disorder, single episode, unspecified; E78.5 Hyperlipidemia, unspecified; M10.9 Gout, unspecified; Z79.82 Long term (current) use of aspirin; Z79.84 Long term (current) use of oral hypoglycemic drugs; Z79.899 Other long term (current) drug therapy

== ENCOUNTER → 2018-01-25 | Outpatient (CLI) | payer MEDICARE ==
[2018-01-25 16:04] LABS: ANION GAP 3 MEQ/L (8-16); BLOOD UREA NITROGEN 22 MG/DL (7-18); CALCIUM LEVEL 8.8 MG/DL (8.8-10.2); CARBON DIOXIDE LEVEL 27 MEQ/L (21-32); CHLORIDE LEVEL 112 MEQ/L (98-107); GLOMERULAR FILTRATION RATE 43.8 (>45); GLUCOSE, FASTING 125 MG/DL (70-100); SODIUM LEVEL 142 MEQ/L (136-145)
[2018-01-25 16:09] LABS: POTASSIUM SERUM 5.8 MEQ/L (3.5-5.1)
== END ==
LOC: M LAB 15:11
DX: N17.9 Acute kidney failure, unspecified (principal)
CPT/HCPCS: 80048

== ENCOUNTER 2018-02-10 11:43 | Outpatient (RCR) | payer MEDICARE | END 2018-02-26 | LOC: M PT 11:43 | DX: Z51.89 Encounter for other specified aftercare (principal); I87.311 Chronic venous hypertension (idiopathic) with ulcer of right lower extremity | CPT/HCPCS: 97530 ==

== ENCOUNTER → 2018-04-12 | Outpatient (REF) | payer MEDICARE, MEDICAID | LOC: M LAB REF 17:01 | DX: R39.0 Extravasation of urine (principal) | CPT/HCPCS: 87088; 87186 ==

== ENCOUNTER → 2018-05-19 | Outpatient (REF) | payer MEDICARE, MEDICAID ==
[2018-05-19 17:16] LABS: BASO # 0.1 10^3/uL (0.0-0.2); BASO % 0.7 % (0.0-1.0); EOS # 0.5 10^3/uL (0.0-0.50); HEMATOCRIT 40.5 % (36.0-47.0); HEMOGLOBIN 13.2 g/dl (12.0-15.5); IMMATURE GRANULOCYTE % 0.3 % (0-3.0); LYMPH # 2.4 10^3/uL (1.5-4.5); LYMPH % 31.5 % (24.0-44.0); MEAN CORPUSCULAR HEMOGLOBIN 32.3 pg (27.0-33.0); MEAN CORPUSCULAR HGB CONC 32.6 g/dl (32.0-36.5); MONO # 0.6 10^3/uL (0.0-0.8); NEUTROPHILS % 52.5 % (36.0-66.0); PLATELET COUNT, AUTOMATED 269 10^3/uL (150-450); RED BLOOD COUNT 4.09 10^6/uL (4.00-5.40); RED CELL DISTRIBUTION WIDTH 15.8 % (11.5-14.5); WHITE BLOOD COUNT 7.6 10^3/uL (4.0-10.0)
[2018-05-19 17:22] LABS: TOTAL 25(OH) VITAMIN D 28.2 NG/ML (30.0-100.0)
[2018-05-19 17:23] LABS: ESTIMATED AVERAGE GLUCOSE 157 MG/DL (60-110); HEMOGLOBIN A1c 7.1 %
[2018-05-19 17:25] LABS: ANION GAP 9 MEQ/L (8-16); BLOOD UREA NITROGEN 27 MG/DL (7-18); CALCIUM LEVEL 9.3 MG/DL (8.8-10.2); CARBON DIOXIDE LEVEL 31 MEQ/L (21-32); CHLORIDE LEVEL 104 MEQ/L (98-107); CREATININE FOR GFR 1.62 MG/DL (0.55-1.30); FREE T4 1.17 NG/DL (0.76-1.46); GLOMERULAR FILTRATION RATE 33.8 (>45); GLUCOSE, FASTING 149 MG/DL (70-100); POTASSIUM SERUM 4.1 MEQ/L (3.5-5.1); SODIUM LEVEL 144 MEQ/L (136-145)
== END ==
LOC: M LAB REF 16:44
DX: E11.22 Type 2 diabetes mellitus with diabetic chronic kidney disease (principal); E55.9 Vitamin D deficiency, unspecified; N39.0 Urinary tract infection, site not specified; R53.83 Other fatigue
CPT/HCPCS: 84443

== ENCOUNTER → 2018-05-23 | Outpatient (REF) | payer MEDICARE, MEDICAID | LOC: M LAB REF 17:00 | DX: N39.0 Urinary tract infection, site not specified (principal) | CPT/HCPCS: 87186 ==

== ENCOUNTER → 2018-06-17 | Outpatient (REF) | payer MEDICARE, MEDICAID ==
[2018-06-17 21:56] LABS: ALBUMIN 2.8 GM/DL (3.2-5.2); ANION GAP 8 MEQ/L (8-16); BLOOD UREA NITROGEN 38 MG/DL (7-18); CALCIUM LEVEL 8.8 MG/DL (8.8-10.2); CARBON DIOXIDE LEVEL 31 MEQ/L (21-32); CHLORIDE LEVEL 106 MEQ/L (98-107); GLOMERULAR FILTRATION RATE 34.3 (>45); GLUCOSE, FASTING 200 MG/DL (70-100); PHOSPHORUS LEVEL 2.6 MG/DL (2.5-4.9); POTASSIUM SERUM 3.6 MEQ/L (3.5-5.1); SODIUM LEVEL 145 MEQ/L (136-145)
== END ==
LOC: M LABDRAWC 16:22
DX: N18.3 Chronic kidney disease, stage 3 (moderate) (principal)

== ENCOUNTER → 2018-06-17 | Outpatient (CLI) | payer MEDICARE, MEDICAID ==
[2018-06-17 16:44] LABS: BASO % 0.3 % (0.0-1.0); EOS # 0.4 10^3/uL (0.0-0.50); EOS % 3.6 % (0.0-3.0); HEMOGLOBIN 12.8 g/dl (12.0-15.5); IMMATURE GRANULOCYTE % 0.4 % (0-3.0); LYMPH # 4.2 10^3/uL (1.5-4.5); LYMPH % 38.2 % (24.0-44.0); MEAN CORPUSCULAR HEMOGLOBIN 32.9 pg (27.0-33.0); MEAN CORPUSCULAR HGB CONC 32.8 g/dl (32.0-36.5); MEAN CORPUSCULAR VOLUME 100.3 fl (80.0-96.0); MONO # 0.9 10^3/uL (0.0-0.8); MONO % 8.1 % (0.0-5.0); NEUTROPHILS # 5.5 10^3/uL (1.8-7.7); NEUTROPHILS % 49.4 % (36.0-66.0); PLATELET COUNT, AUTOMATED 242 10^3/uL (150-450); RED BLOOD COUNT 3.89 10^6/uL (4.00-5.40); RED CELL DISTRIBUTION WIDTH 16.4 % (11.5-14.5); WHITE BLOOD COUNT 11.1 10^3/uL (4.0-10.0)
[2018-06-17 16:54] LABS: ESTIMATED AVERAGE GLUCOSE 171 MG/DL (60-110); HEMOGLOBIN A1c 7.6 %
[2018-06-17 21:58] LABS: ALBUMIN 2.9 GM/DL (3.2-5.2); ALBUMIN/GLOBULIN RATIO 0.73 (1.00-1.93); ALKALINE PHOSPHATASE 153 U/L (45-117); ALT/SGPT 47 U/L (12-78); ANION GAP 10 MEQ/L (8-16); AST/SGOT 35 U/L (7-37); BLOOD UREA NITROGEN 37 MG/DL (7-18); CALCIUM LEVEL 8.8 MG/DL (8.8-10.2); CARBON DIOXIDE LEVEL 30 MEQ/L (21-32); CHLORIDE LEVEL 105 MEQ/L (98-107); CHOLESTEROL LEVEL 149 MG/DL (<200); CHOLESTEROL RISK RATIO 2.098 (<5); GLOMERULAR FILTRATION RATE 34.3 (>45); GLUCOSE, FASTING 201 MG/DL (70-100); HDL CHOLESTEROL 71 MG/DL (>40); LDL CHOLESTEROL 54.8 MG/DL (<100); NON-HDL-C 78 MG/DL; POTASSIUM SERUM 3.6 MEQ/L (3.5-5.1); SODIUM LEVEL 145 MEQ/L (136-145); TOTAL PROTEIN 6.9 GM/DL (6.4-8.2); TRIGLYCERIDES LEVEL 116 MG/DL (<150); URIC ACID 4.3 MG/DL (2.6-6.0)
== END ==
LOC: M CLY 12:27
DX: N18.3 Chronic kidney disease, stage 3 (moderate) (principal); M25.78 Osteophyte, vertebrae; E78.2 Mixed hyperlipidemia; E11.22 Type 2 diabetes mellitus with diabetic chronic kidney disease; M10.9 Gout, unspecified; M54.5 Low back pain
CPT/HCPCS: 84550

== ENCOUNTER → 2018-06-20 | Outpatient (REF) | payer MEDICARE, MEDICAID | LOC: M LAB REF 17:01 | DX: N39.0 Urinary tract infection, site not specified (principal) | CPT/HCPCS: 87086 ==

== ENCOUNTER → 2018-08-22 | Outpatient (REF) | payer MEDICARE, MEDICAID ==
[2018-08-22 17:13] LABS: BASO # 0.1 10^3/uL (0.0-0.2); BASO % 0.8 % (0.0-1.0); EOS % 12.2 % (0.0-3.0); HEMATOCRIT 39.4 % (36.0-47.0); HEMOGLOBIN 12.9 g/dl (12.0-15.5); IMMATURE GRANULOCYTE % 0.1 % (0-3.0); LYMPH # 2.9 10^3/uL (1.5-4.5); LYMPH % 36.6 % (24.0-44.0); MEAN CORPUSCULAR HEMOGLOBIN 33.6 pg (27.0-33.0); MEAN CORPUSCULAR HGB CONC 32.7 g/dl (32.0-36.5); MEAN CORPUSCULAR VOLUME 102.6 fl (80.0-96.0); MONO # 0.7 10^3/uL (0.0-0.8); MONO % 8.4 % (0.0-5.0); NEUTROPHILS # 3.3 10^3/uL (1.8-7.7); NEUTROPHILS % 41.9 % (36.0-66.0); PLATELET COUNT, AUTOMATED 181 10^3/uL (150-450); RED BLOOD COUNT 3.84 10^6/uL (4.00-5.40); RED CELL DISTRIBUTION WIDTH 14.8 % (11.5-14.5); WHITE BLOOD COUNT 7.9 10^3/uL (4.0-10.0)
[2018-08-22 18:08] LABS: MALB URINE SIEMENS 25.4 MG/L
[2018-08-22 18:11] LABS: MAU/CREAT RATIO 21.9 MCG/MG (0.0-30.0)
[2018-08-22 18:17] LABS: CHOLESTEROL LEVEL 130 MG/DL (<200); CHOLESTEROL RISK RATIO 2.826 (<5); HDL CHOLESTEROL 46 MG/DL (>40); LDL CHOLESTEROL 67 MG/DL (<100); NON-HDL-C 84 MG/DL; TRIGLYCERIDES LEVEL 85 MG/DL (<150)
[2018-08-22 20:49] LABS: ESTIMATED AVERAGE GLUCOSE 154 MG/DL (60-110)
== END ==
LOC: M LABDRAWC 16:35
DX: N18.3 Chronic kidney disease, stage 3 (moderate) (principal); E11.22 Type 2 diabetes mellitus with diabetic chronic kidney disease; E78.2 Mixed hyperlipidemia
CPT/HCPCS: 83036

== ENCOUNTER → 2018-08-31 | Outpatient (CLI) | payer MEDICARE, MEDICAID | LOC: M RAD 15:45 | DX: R29.6 Repeated falls (principal); I67.82 Cerebral ischemia | CPT/HCPCS: 70450 ==

== ENCOUNTER → 2018-09-02 | Outpatient (REF) | payer MEDICARE, MEDICAID | LOC: M LAB REF 17:30 | DX: N39.0 Urinary tract infection, site not specified (principal) | CPT/HCPCS: 87086 ==

== ENCOUNTER 2018-11-27 14:25 | Emergency (ER) | payer MEDICARE, MEDICAID ==
[~2018-11-27] VITALS: Ht 157.5 cm; Wt 113.6 kg
[~2018-11-27 14:25] MED LIST changes: +AMPI500C9 PO; +BACITAB PO; +BUPR100T3 PO; +DOC-8.6T3 PO; +DOXY100T PO; +FLUO20CA8 PO; +FURO40TA2 PO; +GLIP5TAB20 PO; +GLIP5TAB8 PO; +MAGN1TAB25 PO; +NEUR300C PO; +NIAC1TAB5 PO; +NIAC250T3 PO; +POTA10TA14 PO; +POTA50TAB PO; +ZYLO300T6 PO
[2018-11-27] MEDS ORDERED: CEPHALEXIN 500 MG CAP PO ONE (16:30)
[2018-11-27] MEDS ORDERED: KEFL500C17 PO (16:52)
[2018-11-27 17:34] VITALS: BP 123/92
== END 2018-11-27 17:36 | disposition home or self-care (01) ==
LOC: M ED 14:25 → EDBD 14:25 → M ED 17:36
DX: N39.0 Urinary tract infection, site not specified (principal); N18.3 Chronic kidney disease, stage 3 (moderate); I89.0 Lymphedema, not elsewhere classified; I87.2 Venous insufficiency (chronic) (peripheral); E11.29 Type 2 diabetes mellitus with other diabetic kidney complication; I12.9 Hypertensive chronic kidney disease with stage 1 through stage 4 chronic kidney disease, or unspecified chronic kidney disease; E78.5 Hyperlipidemia, unspecified; Z79.899 Other long term (current) drug therapy; Z79.82 Long term (current) use of aspirin
CPT/HCPCS: 81001; 87086; 99284; P9612

== ENCOUNTER → 2019-05-04 | Outpatient (REF) | payer MEDICARE, MEDICAID ==
[~2019-05-04] MED LIST changes: -/MOXI40TA OR; +AVEL1TAB2 OR; -CALC0.5C PO; +CALC0.5C14 PO; -DOCU10ELUD PO; +DOCU5LIQ PO; +KEFL500C17 PO; -MAGN1TAB25 PO; +MAGN1TAB26 PO
[2019-05-05 12:29] LABS: ALBUMIN 2.6 GM/DL (3.2-5.2); BILIRUBIN,TOTAL 0.4 MG/DL (0.2-1.0); CALCIUM LEVEL 8.9 MG/DL (8.8-10.2); CHOLESTEROL RISK RATIO 2.645 (<5); CREATININE FOR GFR 1.74 MG/DL (0.55-1.30); FREE T4 0.94 NG/DL (0.76-1.46); GLOMERULAR FILTRATION RATE 31.1 (>45); THYROID STIMULATING HORMONE 2.15 uIU/ML (0.358-3.740); TOTAL PROTEIN 6.7 GM/DL (6.4-8.2)
[2019-05-05 12:41] LABS: HEMOGLOBIN A1c 7.6 %
== END ==
LOC: M LAB REF 11:30
PROVIDERS: ATTEND Physician Assistant
DX: M10.9 Gout, unspecified (principal); E11.22 Type 2 diabetes mellitus with diabetic chronic kidney disease; E78.2 Mixed hyperlipidemia

== ENCOUNTER → 2019-08-24 | Outpatient (REF) | payer MEDICARE, MEDICAID ==
[2019-08-24 18:22] LABS: CALCIUM LEVEL 9.7 MG/DL (8.8-10.2); CREATININE FOR GFR 1.62 MG/DL (0.55-1.30); FREE T4 0.93 NG/DL (0.76-1.46); GLOMERULAR FILTRATION RATE 33.7 (>45); POTASSIUM SERUM 3.9 MEQ/L (3.5-5.1); THYROID STIMULATING HORMONE 2.6 uIU/ML (0.358-3.740)
[2019-08-24 19:24] LABS: HEMOGLOBIN A1c 7.2 %
== END ==
LOC: M LABDRAWC 17:23
PROVIDERS: ATTEND Physician Assistant
DX: F33.1 Major depressive disorder, recurrent, moderate (principal); E11.22 Type 2 diabetes mellitus with diabetic chronic kidney disease; Z79.899 Other long term (current) drug therapy; Z79.82 Long term (current) use of aspirin

== ENCOUNTER 2019-10-20 10:33 | Inpatient (IN) | payer MEDICARE, MEDICAID ==
[2019-10-20] VITALS (23 sets, daily range): BP systolic 73–130; BP diastolic 37–73
[~2019-10-20] VITALS: Ht 152.4 cm; Wt 120.6 kg
[2019-10-20] MEDS ORDERED: GABA600T4 PO (10:57)
[2019-10-20] MEDS ORDERED: BUPR150T5 PO (10:57)
[2019-10-20] MEDS ORDERED: NITR100C2 PO (10:57)
[2019-10-20] MEDS ORDERED: DOCU100C16 PO (10:57)
[2019-10-20 12:08] LABS: BASO % 0.2 % (0.0-1.0); EOS # 0.1 10^3/uL (0.0-0.5); EOS % 1.1 % (0.0-3.0); HEMATOCRIT 38.3 % (36.0-47.0); HEMOGLOBIN 12.5 g/dl (12.0-15.5); LYMPH # 0.8 10^3/uL (1.5-5.0); LYMPH % 7.4 % (24.0-44.0); MEAN CORPUSCULAR HEMOGLOBIN 34.2 pg (27.0-33.0); MEAN CORPUSCULAR HGB CONC 32.6 g/dl (32.0-36.5); MEAN CORPUSCULAR VOLUME 104.9 fl (80.0-96.0); MONO # 0.4 10^3/uL (0.0-0.8); MONO % 3.3 % (0.0-5.0); NEUTROPHILS % 87.6 % (36.0-66.0); PLATELET COUNT, AUTOMATED 191 10^3/uL (150-450); RED BLOOD COUNT 3.65 10^6/uL (4.00-5.40); WHITE BLOOD COUNT 11.4 10^3/uL (4.0-10.0)
[2019-10-20 12:34] LABS: ALBUMIN 2.2 GM/DL (3.2-5.2); ALT/SGPT 11 U/L (12-78); BILIRUBIN,DIRECT 0.3 MG/DL (0.0-0.2); BILIRUBIN,TOTAL 0.7 MG/DL (0.2-1.0); BLOOD UREA NITROGEN 28 MG/DL (7-18); CALCIUM LEVEL 8.3 MG/DL (8.8-10.2); CARBON DIOXIDE LEVEL 28 MEQ/L (21-32); CHLORIDE LEVEL 109 MEQ/L (98-107); CK-MB VALUE MASS < 1.0 NG/ML (<3.6); CPK CREATINE PHOSPHOKINASE 23 U/L (26-192); CREATININE FOR GFR 1.56 MG/DL (0.55-1.30); GLOMERULAR FILTRATION RATE 35.2 (>45); GLUCOSE, FASTING 165 MG/DL (70-100); MB/CK RELATIVE INDEX 4.35 (< OR =4); POTASSIUM SERUM 4.2 MEQ/L (3.5-5.1); SODIUM LEVEL 145 MEQ/L (136-145); TOTAL PROTEIN 5.7 GM/DL (6.4-8.2); TROPONIN I < 0.02 NG/ML (< 0.10)
[2019-10-20 13:55] LABS: NT-PRO BNP 663 PG/ML (<125)
--- NOTE | 2019-10-20 14:06 | REP ---
Chest x-ray: Two views. History: Shortness of breath. Comparison study: January 16, 2015. Findings: The lungs are well inflated and clear. The pleural angles are sharp. Heart size is normal. There are mild degenerative changes in the thoracic spine. There is old post-traumatic deformity of the proximal humerus on the left. Impression: No active disease. Electronically Signed by Piotr Ang MD 10/20/2019 01:57 P
[2019-10-20 14:18] LABS: C REACTIVE PROTEIN QUANTITATIV 1.26 MG/DL (0.00-0.30)
[2019-10-20 14:46] LABS: ERYTHROCYTE SEDIMENTATION RATE 66 mm/hr (0-30)
[2019-10-20] MEDS ORDERED: cefTRIAXone SOD 2 GM in D5W MINI-BAG PLUS 50 ML IV ONE (16:00)
[2019-10-20] MEDS ORDERED: ACETAMINOPHEN 325 MG TAB PO ONE (16:00)
[2019-10-20] MEDS ORDERED: ASPI81TA26 PO (16:42)
[2019-10-20] MEDS ORDERED: NYST1POW9 TOP (16:42)
[2019-10-20] MEDS ORDERED: CALC1CAP31 PO (16:42)
[2019-10-20] MEDS ORDERED: FLUO40CA PO (16:42)
[2019-10-20] MEDS ORDERED: DOXY100T PO (16:42)
[2019-10-20] MEDS ORDERED: SIMV20TA22 PO (16:42)
[2019-10-20] MEDS ORDERED: HYDR-3713 PO (16:42)
[2019-10-20] MEDS ORDERED: METO100T5 PO (16:42)
[2019-10-20] MEDS ORDERED: NORCO, ANEXSIA 5/325MG TABLET (HYDROcodone/ACETAMINOPHEN) PO PRN (17:15)
[2019-10-20] MEDS ORDERED: SODIUM CHLORIDE 0.9% 1000ML IV SCH (17:15)
[2019-10-20] MEDS ORDERED: ONDANSETRON 4MG/2ML VIAL (J2405) IV PRN (17:15)
[2019-10-20] MEDS ORDERED: DEXTROSE 50% 50 ML SYRINGE IV PRN (17:15)
[2019-10-20] MEDS ORDERED: GLUCOSE 4 GM CHEW TABLET PO PRN (17:15)
[2019-10-20] MEDS ORDERED: GLUCAGON FOR INJ 1 MG VIAL (J1610) SC PRN (17:15)
[2019-10-20] MEDS ORDERED: ACETAMINOPHEN 500 MG TAB PO PRN (17:30)
[2019-10-20 17:43] LABS: ABG BASE EXCESS -1.9 (-2.0-2.0); ABG HCO3 19.8 MEQ/L (22.0-26.0); ABG O2 SATURATION 97.9 % (95.0-99.0); ABG PARTIAL PRESSURE CO2 25.2 mmHg (35.0-45.0); ABG PARTIAL PRESSURE O2 98.6 mmHg (75.0-100.0); ABG STANDARD HCO3 22.9 MEQ/L (22.0-26.0); ABG TOTAL CO2 20.6 MEQ/L (23.0-31.0); ABG pH (ARTERIAL) 7.513 UNITS (7.350-7.450)
--- NOTE | 2019-10-20 17:47 | HPEPDOC ---
General Date of Admission 10/20/19 Date of Service: Oct 20, 2019 Chief Complaint The patient is a 69-year-old female admitted with a reason for visit of Dizziness. Source: Patient, Family, RN/MD, Old records Exam Limitations: No limitations Severity: Severe History of Present Illness 69 year old female with PMH of morbid obesity, bilateral lower extremity lymphedema, type 2 diabetes not on insulin, hypertension, depression, dys lipidemia, chronic kidney disease (CKD), gout, diastolic congestive heart failure , diabetic neuropathy , PVD, chronic venous stasis, h/o uterine cancer in 2011 presented to the ED with 1 week history of dizziness and nausea. Patient was being treated for a UTI and leg ulcer with doxycycline from 10/13 adn also nitrofurantoin. Pateint had developed a blood filled blister on the lemus of right leg about 3 weeks ago which then burst open and now is an superficial venous stasis ulcer of size 5 cm x 3 cm which her daughter has been dressing with tripple ointment and dry gauge cover. They also noticed another ulcer on alfred heel of the right foot which started at bout the same time about 2 cm x 1 cm in size and has increased in size. From yesterday daughter noticed that her left leg was more red and warm than usual with the redness extending up to the thighs. Normally both her legs are red but below the thigh. She also complained of chills, feeling warm and cold at home but did not check her temperature. In the ED she spiked a fever of 102.3. pulse> 90, RR 18-21, She was hypotensive with SBPs in 90s lowest being 83/49, had a wbc of 11.4, lactate of 3.7, elevated ESR, creatinine of 1.5. She was admitted for Cellulitis of left leg with sepsis. Home Medications Scheduled Allopurinol (Zyloprim) 300 Mg Tab, 300 MG PO DAILY, (Reported) Aspirin (Aspirin EC) 81 Mg Tablet.dr, 81 MG PO DAILY, (Reported) Bupropion Hcl (Bupropion HCl Sr) 150 Mg Tab.sr.12h, 150 MG PO BID, (Reported) Calcitriol (Calcitriol) 0.25 Mcg Capsule, 0.25 MCG PO 3XW, (Reported) MON, WED, FRI Docusate Sodium (Docusate Sodium) 100 Mg Capsule, 100 MG PO BID, (Reported) Doxycycline Hyclate (Doxycycline Hyclate) 100 Mg Tablet, 100 MG PO BID, (Reported) FILLED 10/13/19 FOR 10 DAYS Fluoxetine Hcl (Fluoxetine HCl) 40 Mg Capsule, 40 MG PO DAILY, (Reported) Furosemide (Furosemide) 40 Mg Tab, 80 MG PO DAILY, (Reported) Gabapentin (Gabapentin) 600 Mg Tablet, 600 MG PO BID, (Reported) Glipizide (Glipizide ER) 5 Mg Tab, 5 MG PO DAILY, (Reported) Magnesium Oxide (Magnesium Oxide) 400 Mg Tab, 400 MG PO 3XW, (Reported) WED, WED, WED Metoprolol Tartrate (Metoprolol Tartrate) 100 Mg Tablet, 100 MG PO DAILY, (Reported) VERIFIED WITH PHARMACY THAT IT IS TARTRATE ONCE DAILY Niacin (Niacin ER) 1,000 Mg Tab, 1,000 MG PO QHS, (Reported) Nitrofurantoin Monohyd/M-Cryst (Nitrofurantoin Freestone-Mcr 100 mg) 100 Mg Capsule, 100 MG PO DAILY, (Reported) Nystatin (Nystatin Powder) 15 Gm Powder, 1 DOSE TOP ASDIRECTED, (Reported) APPLY UNDER BREASTS AND ABDOMINAL FOLDS AFTER SHOWER Simvastatin (Simvastatin) 20 Mg Tablet, 20 MG PO QHS, (Reported) Scheduled PRN Hydrocodone/Acetaminophen (Hydrocodone-Acetamin 5-325 mg) 1 Each Tablet, 1 TAB PO Q6H PRN for PAIN, (Reported) Allergies Coded Allergies: No Known Allergies (Verified Allergy, Unknown, 10/20/19) Past Medical History Medical History morbid obesity, bilateral lower extremity lymphedema, type 2 diabetes not on insulin, hypertension, depression, dyslipidemia, chronic kidney disease (CKD), gout, diastolic congestive heart failure , diabetic neuropathy , PVD, chronic venous stasis, h/o uterine cancer in 2012, Untreated CARLA has home oxygen to use at night does not use it, was told she needed CPAP but could not tolerate it, clautrophobia. Surgical History 1. Appendectomy. 2. Tonsillectomy. 3. Left oophorectomy. 4. Total hysterectomy with right oophorectomy. 5. Right elbow surgery with open reduction internal fixation. Family History Mother had hypertension, heart disease and a stroke. Father of cancer. Social History * Smoker: Denies Alcohol: Denies Drugs: denies A-FIB/CHADSVASC A-FIB History Current/History of A-Fib/PAF?: No Review of Systems Constitutional: Reports: Chills, Malaise, Weakness Eyes: Denies: Pain, Vision change ENT: Denies: Head Aches, Ear Pain, Dysphagia Skin: Reports: Rash (on the abdominal folds), Dry, Breakdown Cardiovascular: Denies: Chest Pain, Palpitations, Orthopnea, Paroxysmal Noc. Dyspnea, Lt Headedness Gastrointestinal: Reports: Nausea; Denies: Vomiting, Abdominal Pain, Diarrhea Genitourinary: Reports: Hematuria; Denies: Dysuria, Frequency, Incontinence, Retention Hematologic: Denies: Bruising, Bleeding Excessively Musculoskeletal: Reports: Leg Pain Neurological: Denies: Weakness, Numbness, Change in speech, Confusion Physical Examination General Exam: Positive: Alert, Cooperative, No Acute Distress Eye Exam: Positive: PERRLA, Conjunctiva & lids normal, EOMI; Negative: Sclera icteric ENT Exam: Positive: Atraumatic, Mucous membr. moist/pink, Pharynx Normal Neck Exam: Positive: Supple; Negative: JVD, thyromegaly Chest Exam: Positive: Clear to auscultation, Normal air movement Heart Exam: Positive: Rate Normal, Regular Rhythm, Normal S1, Normal S2; Negative: Murmurs, Rubs Telemetry: Positive: No significant arrhythmia Abdomen Exam: Positive: Normal bowel sounds, Soft; Negative: Tenderness, Hepatospenomegaly Extremity Exam: Positive: Edema (bilateral pitting and nonpitting), Tenderness (right heel), Swelling (bilateral ) Skin Exam: Positive: Rash (in the bdominal folds.), Breakdown (venous stasis ulcer on right lemus), Lesion (pressure ulcer on right heel and a very small one on the left foot also), Other skin issue (bilateral lymphedema, bilateral redness with redness of the left extending up to the thing) Neuro Exam: Positive: Normal Gait, Normal Speech, Strength at 5/5 X4 ext, Normal Tone, Reflexes 2+ Psych Exam: Positive: Mental status NL, Mood NL, Oriented x 3 Vital Signs Vital Signs Date Time Temp Pulse Resp B/P (MAP) Pulse Ox O2 Delivery O2 Flow Rate FiO2 10/20/19 15:08 106/53 (70) 10/20/19 13:33 101 98 10/20/19 12:04 Room Air 10/20/19 10:48 99.3 18 Laboratory Data Labs 24H Laboratory Tests 2 10/20/19 11:42: Immature Granulocyte % (Auto) 0.4, Neutrophils (%) (Auto) 87.6H, Lymphocytes (%) (Auto) 7.4L, Monocytes (%) (Auto) 3.3, Eosinophils (%) (Auto) 1.1, Basophils (%) (Auto) 0.2, Neutrophils # (Auto) 10.0H, Lymphocytes # (Auto) 0.8L, Monocytes # (Auto) 0.4, Eosinophils # (Auto) 0.1, Basophils # (Auto) 0.0, Nucleated Red Blood Cells % (auto) 0.0, Erythrocyte Sedimentation Rate 66H, Anion Gap 8, Glomerular Filtration Rate 35.2L, Calcium Level 8.3L, Total Bilirubin 0.7, Direct Bilirubin 0.3H, Aspartate Amino Transf (AST/SGOT) 16, Alanine Aminotransferase (ALT/SGPT) 11L, Alkaline Phosphatase 94, Total Creatine Kinase 23L, Creatine Kinase MB < 1.0, Creatine Kinase MB Relative Index 4.35H, Troponin I < 0.02, C-Reactive Protein, Quantitative 1.26H, DE-Mie-G-Type Natriuretic Peptide 663H, Total Protein 5.7L, Albumin 2.2L, Albumin/Globulin Ratio 0.63L, Thyroid Stimulating Hormone (TSH) 4.170H 10/20/19 15:15: Lactic Acid Level 3.7*H CBC/BMP Laboratory Tests 10/20/19 11:42 Assessment/Plan 69 year old female with PMH of morbid obesity, bilateral lower extremity lymphedema, type 2 diabetes not on insulin, hypertension, depression, dyslipidemia, chronic kidney disease (CKD), gout, diastolic congestive heart failure , diabetic neuropathy , PVD, chronic venous stasis, h/o uterine cancer in 2011 presented to the ED with 1 week history of dizziness and nausea. Patient was being treated for a UTI and leg ulcer with doxycycline from 10/13 and also nitrofurantoin. Patient had developed a blood filled blister on the lemus of right leg about 3 weeks ago which then burst open and now is an superficial venous stasis ulcer of size 5 cm x 3 cm which her daughter has been dressing with tripple ointment and dry gauge cover. They also noticed another ulcer on alfred heel of the right foot which started at bout the same time about 2 cm x 1 cm in size and has increased in size. From yesterday daughter noticed that her left leg was more red and warm than usual with the redness extending up to the thighs . Normally both her legs are red but below the thigh. She also complained of chills, feeling warm and cold at home but did not check her temperature. In the ED she spiked a fever of 102.3. pulse> 90, RR 18-21, She was hypotensive with SBPs in 90s lowest being 83/49, had a wbc of 11.4, lactate of 3.7, elevated ESR, creatinine of 1.5. She was admitted for Cellulitis of left leg with sepsis. Sepsis from Skin and soft tissue infection will give 2 liter bolus, ceftriaxone, vancomycin blood cultures, wound culture with h/o CHF will have to be cautious about the fluids. hold all antihypertensives and diuretics. Cellulitis of left leg ceftriaxone and vancomycin. Hypotension normally patient is hypertensive now hypotension due to sepsis hold all antihypertensives fluid bolus followed by maintainance Diabetes with neuropathy will put on lispro sliding scale with FS Ac and HS gabapentin Bilateral venous stasis with lymphedema, stasis rubor Now with right venous stasis ulcer will send wound culture. wound care CKD stage 3 creatinine at baseline will continue to monitor. Dyslipidemia continue home meds depression continue home meds Diastolic CHF Echo in 2013 reviewed. getting fluid boluses. diuretics held. Gout continue allopurinol untreated CARLA has home oxygen does not use it. Plan / VTE VTE Prophylaxis Ordered?: Yes LUTHER BUI MD Oct 20, 2019 16:34
[2019-10-20] MEDS ORDERED: NS 1,000 ML IV SCH (18:00)
[2019-10-20] MEDS ORDERED: NS 1,000 ML IV ONE ×2 (18:00)
[2019-10-20] MEDS ORDERED: VANCOMYCIN HCL 1,000 MG, VIAL MATE ADAPTER 1 EACH in D5W 250 ML IV ONE ×2 (18:30→20:00)
[2019-10-20] MEDS: HumaLOG INSULIN (NovoLOG) PER UNIT SC SCH ×2 (18:45→21:00)
[2019-10-20] MEDS ORDERED: NOREPINEPHRINE BITARTRATE 8 MG in D5W 500 ML IV SCH (20:23)
[2019-10-20] MEDS: NYSTATIN 100,000 UNITS/GM TOPICAL PWD 15 GM TOP SCH (21:00)
[2019-10-20] MEDS: buPROPion **SR TABLET** (ZYBAN) 150MG PO SCH (22:01)
[2019-10-20] MEDS: HEPARIN SOD (PORCINE) 5000 UNITS/ML VIAL SC SCH (22:01)
[2019-10-20] MEDS: PIPERACILLIN/TAZOBACTAM SOD 3.375 GM in D5W MINI-BAG PLUS 50 ML IV SCH (22:01)
[2019-10-20] MEDS: GABAPENTIN 300 MG CAP PO SCH (22:01)
[2019-10-20] MEDS: SIMVASTATIN 20 MG TAB PO SCH (22:02)
[2019-10-20] MEDS: DOCUSATE SODIUM 100 MG CAP PO SCH (22:02)
[2019-10-20] MEDS ORDERED: MORPHINE 2 MG/ML 1ML VIAL (J2270) IV PRN (22:15)
[2019-10-21] VITALS (44 sets, daily range): BP systolic 73–156; BP diastolic 39–101
--- NOTE | 2019-10-21 00:34 | CR ---
DATE OF CONSULTATION: 10/20/2019 REASON FOR CONSULTATION: Sepsis versus septic shock requiring pressors. CONSULTING PHYSICIAN: Dr. Loida Benitez HISTORY OF THE PRESENT ILLNESS: Ms. Muir is a 69-year-old female who presented to [facility] Emergency Department on 10/20/2019 with a complaint of fevers, chills and malaise. The patient stated that she had previously been treated for a urinary tract infection and an ulcer on her leg, which she had received antibiotics on 10/13/2019. The patient additionally had stated that she had pain in her right lemus and foot, as well as on her right leg. The patient stated that she originally had a blister, which had developed into an ulcer. The patient stated that she typically has redness in her legs as well as swelling; however, she and her daughter had noticed significantly more swelling in her left leg over the past couple of days, as well as increased warmth as well. The patient stated that her leg was more red up to her thigh. The patient was seen in the ED with a T 102.3 and a pulse of 90. She was hypotensive with systolic blood pressure in the 90s. She had an elevated white count of 11.4 and a lactic acid of 3.7. She had an elevated CRP of 1.26. The patient was treated for sepsis, and she received two liters of fluid bolus in the emergency department. She did not receive any additional fluid at that time as she had a history of congestive heart failure, and the patient was becoming somewhat short of breath. The patient received blood cultures and urine cultures. She received a chest x-ray, which was negative for any acute findings. She was started on ceftriaxone and vancomycin. The patient was monitored throughout the day. She failed to improve with fluid resuscitation. Her blood pressure remained soft. The patient was changed to vancomycin and Zosyn for antibiotic coverage. The patient continued to remain hypotensive and the pulmonary critical care service was consulted. When the patient was evaluated at the bedside, a central venous catheter was placed into the right internal jugular vein for venous access. The patient stated that at the current time, she felt well. She was hemodynamically stable, however, she was febrile with a temperature of 101.2. She remained hypotensive at the time with a blood pressure of 89/47 and a mean arterial pressure (MAP) of 61. The patient was started on Levophed. INPATIENT MEDICATIONS: - vancomycin - allopurinol - Prozac - aspirin - Zosyn - Wellbutrin - gabapentin - simvastatin - nystatin - Colace - Levophed - Elizabeth 5/325 - Zofran PAST MEDICAL HISTORY: 1. Type 2 diabetes mellitus, non-insulin dependent. 2. Hypertension. 3. Dyslipidemia. 4. Chronic kidney disease stage III. 5. Gout. 6. Diastolic congestive heart failure. 7. Diabetic neuropathy. 8. Peripheral vascular disease. 9. Chronic venous stasis with bilateral lower extremity lymphedema. 10. History of uterine cancer in 2011. 11. Obstructive sleep apnea, on home oxygen of two liters, noncompliant with continuous positive airway pressure (CPAP). SURGICAL HISTORY: 1. Appendectomy. 2. Tonsillectomy. 3. Left oophorectomy. 4. Total hysterectomy with right oophorectomy. 5. Right elbow open reduction internal fixation. FAMILY HISTORY: Patient's mother has hypertension, heart disease and had suffered a stroke. The patient's father from cancer. SOCIAL HISTORY: The patient is a nonsmoker. She denies any alcohol use. She denies any illicit intravenous (IV) drug use. REVIEW OF SYSTEMS: Constitutional: Patient admits to chills, fevers, and weakness, which has been persistent over the past few days before coming to the emergency department. She denies any weight loss or weight gain. She denies any night sweats. HEENT: Patient denies any changes in her vision. She denies any headaches. She denies any dysphagia or odynophagia. Cardiovascular: Patient denies any chest pain, palpitations. She denies any feelings of her heart racing. She denies any dyspnea or orthopnea. She denies any paroxysmal nocturnal dyspnea. Respiratory: Patient denies any shortness of breath. She denies any cough, wheezing, or sputum production. Gastrointestinal: Patient denies any abdominal pain, vomiting or diarrhea. She admits to occasional nausea over the past few days. Genitourinary: Patient admits to an episode of hematuria; however, she denies any dysuria, increased frequency, incontinence or retention. Hematologic: Patient denies any easy bruising or bleeding. Musculoskeletal: Patient admits to chronic bilateral lower extremity pain. Skin: Patient admits to a rash on her abdominal fold. She also admits to an ulcer on her right leg, as well as an ulcer on her right heel. Neurological: Patient denies any weakness. She admits to some decreased sensation in her legs bilaterally. She denies any changes in speech or gait. Psychiatric: Patient denies any depression or anxiety. PHYSICAL EXAMINATION: Vital Signs: Temperature 101.2, pulse 90, respiratory rate 20, blood pressure 81/44, pulse oximetry 95% on room air. General Exam: The patient is awake, alert. She does not appear in any acute distress. She is lying in her bed comfortably. HEENT: Patient's head is atraumatic, normocephalic. Eyes: Nonicteric. Her trachea is midline. Her neck is sterling. There is no appreciable jugular venous distention. Cardiovascular: Patient has a normal S1 and S2. There is a regular rate and rhythm. There are no clicks, rubs or murmurs. There is no lateral displacement of the point of maximum impulse (PMI). Respiratory: There are clear vesicular breath sounds bilaterally with mild fine crackles in the bases bilaterally. There is good respiratory effort with symmetric chest expansion. There is no wheezes or rhonchi. Abdominal: The patient is morbidly obese. She has a red appearing rash in her abdominal fold. There is normoactive bowel sounds to auscultation. There is no tenderness. There is no rebound tenderness or guarding. Her abdomen is not distended. Extremities: Patient's bilateral extremities have significant bilateral pitting edema. She has some tenderness to her right heel. There is an approximately 5 x 4 cm venous stasis ulcer on the right anterior lemus. There is also a smaller 2 x 2 cm pressure ulcer on the patient's right heel. The patient has some what appears to be dependent rubor, as well as some redness and warmth in the left lower extremity as well. Neurologic: There is no focal neurological deficits. Psychiatric: Patient's mood and affect appear appropriate for the situation. LABORATORY DATA: Hematology: White blood cells 11.4, hemoglobin 12.5, hematocrit 38.3, platelet count 191. Chemistries: Sodium 145, potassium 4.2, chloride 109, CO2 of 28, BUN 28, creatinine 1.56, fasting glucose 165. Calcium 8.3. Total bilirubin 0.7. Direct bilirubin 0.3. AST 16, ALT 11, alkaline phosphatase 94, creatine kinase 23. CRP 1.26. NT-pro-BNP 663. Procalcitonin pending. TSH 4.17. Lactic acid 3.7. Repeat was 4.6. Microbiology: Blood cultures times two pending. Urine culture pending. Urinalysis demonstrating 3+ blood, trace leukocyte esterase, no urine bacteria. IMAGING: Chest x-ray demonstrating lungs well inflated and clear. Pleural angles are sharp. Heart is normal in size. There are mild degenerative changes of the thoracic spine with an old post-traumatic deformity of the proximal humerus on the left but otherwise no acute process. ASSESSMENT AND PLAN: 1. Sepsis, likely secondary to cellulitis of the left leg. Patient is a 69-year-old female with multiple comorbidities who originally presented to the emergency department with complaint of fevers and chills. She has a left leg cellulitis. The patient has been hypotensive throughout the day. She had been given fluid resuscitation approximately two liters IV bolus and it was ran with maintenance fluids. The patient started to complain of some shortness of breath as well as have some crackles in her lungs. The fluids were stopped. The patient had blood cultures times two and antibiotics were started. The patient remained hypotensive despite the interventions and the patient, therefore, needed central line placement. We were consulted, the line was placed. The patient is now on Levophed with a mean arterial pressure goal of 65 or greater. Given the patient is in sepsis, will continue the patient on pressors with a goal of 65 of mean arterial pressure. The patient is to continue on her vancomycin and Zosyn. Blood culture is currently pending. Given that she has had a history of congestive heart failure, and she has some difficulty breathing, her IV fluids are currently on hold. Will reevaluate later; however, patient does not immediately appear volume contracted, and in fact, she appears a little volume overloaded. Original lactate 3.7; patient's repeat was 4.6. Will need followup on lactic acid to assess for tissue. Additionally patient has procalcitonin which is currently pending. 2. Congestive heart failure, diastolic. The patient has a history of congestive heart failure. As previously stated, she has been given IV boluses of fluids secondary to her sepsis. Currently on hold as the patient has been unable to tolerate the amount of fluid that she has been getting. 3. Chronic kidney disease, stage III. Patient has a history of chronic kidney disease. Her creatinine appears to be at her baseline. She was hypotensive, however, and we will continue to monitor her creatinine for septic acute kidney injury. 4. Diabetes mellitus, type 2. Patient is currently on sliding scale insulin. 5. Deep vein thrombosis (DVT) prophylaxis. Patient is currently on heparin 5000 units every 12 hours. Total critical care time spent not including any procedures approximately 1 hour and 45 mins ILoida, have conducted an independent history and examination of the patient and agree with the above plan as detailed by the resident. ROSE
[2019-10-21] MEDS: PIPERACILLIN/TAZOBACTAM SOD 3.375 GM in D5W MINI-BAG PLUS 50 ML IV SCH ×4 (03:09→21:38)
[2019-10-21 04:23] LABS: HEMATOCRIT 33.1 % (36.0-47.0); HEMOGLOBIN 10.7 g/dl (12.0-15.5); MEAN CORPUSCULAR HEMOGLOBIN 33.5 pg (27.0-33.0); MEAN CORPUSCULAR HGB CONC 32.3 g/dl (32.0-36.5); MEAN CORPUSCULAR VOLUME 103.8 fl (80.0-96.0); PLATELET COUNT, AUTOMATED 159 10^3/uL (150-450); RED BLOOD COUNT 3.19 10^6/uL (4.00-5.40); WHITE BLOOD COUNT 22.1 10^3/uL (4.0-10.0)
[2019-10-21 04:48] LABS: ANISOCYTOSIS 1+; LYMPHOCYTES 12 % (16-44); MONOCYTES 3 % (0-5); NEUTROPHILS 85 % (28-66); PLATELET ESTIMATE NORMAL (NORMAL)
[2019-10-21 05:02] LABS: CALCIUM LEVEL 8.1 MG/DL (8.8-10.2); CREATININE FOR GFR 1.54 MG/DL (0.55-1.30); GLOMERULAR FILTRATION RATE 35.8 (>45); POTASSIUM SERUM 3.5 MEQ/L (3.5-5.1)
--- NOTE | 2019-10-21 06:30 | ECGEPIP ---
[facility] - ED Test Date: 2019-10-20 Pat Name: MARTHA ARENAS Department: Room: - Gender: Female Video [employer] Recorder: : [id number] Requested By: Rudi Morse Order Number: [id number] Reading MD: Andrea Corey Measurements Intervals [place] Rate: 98 P: OK: 0 QRS: 66 QRSD: 91 T: 109 QT: 374 QTc: 479 Interpretive Statements SUPRAVENTRICULAR RHYTHM NONSPECIFIC ST & T-WAVE ABNORMALITY POSSIBLE LATERAL VA AGE UNDETERMINED PROLONGED QTC BASELINE ARTIFACT MAY AFFECT READING BASELINE WANDERING MAY AFFECT READING CW 12/18/[address] T WAVE CHANGES PROLONGED QTC Electronically Signed on 10-21-2019 6:29:37 EST by Andrea Corey
[2019-10-21] MEDS: FLUoxetine 20 MG CAP PO SCH (08:18)
[2019-10-21] MEDS: GABAPENTIN 300 MG CAP PO SCH ×2 (08:18→20:05)
[2019-10-21] MEDS: buPROPion **SR TABLET** (ZYBAN) 150MG PO SCH ×2 (08:18→20:05)
[2019-10-21] MEDS: DOCUSATE SODIUM 100 MG CAP PO SCH ×2 (08:18→20:05)
[2019-10-21] MEDS: ASPIRIN 81 MG ENTERIC TAB PO SCH (08:19)
[2019-10-21] MEDS: NYSTATIN 100,000 UNITS/GM TOPICAL PWD 15 GM TOP SCH ×2 (08:19→20:06)
[2019-10-21] MEDS: ALLOPURINOL 300 MG TAB PO SCH (08:19)
[2019-10-21] MEDS: HEPARIN SOD (PORCINE) 5000 UNITS/ML VIAL SC SCH ×2 (08:19→20:06)
[2019-10-21] MEDS: HumaLOG INSULIN (NovoLOG) PER UNIT SC SCH ×4 (08:20→20:11)
--- NOTE | 2019-10-21 08:42 | REP ---
HISTORY: Status post central line placement. COMPARISON: 10/20/2019 A right-sided internal jugular central venous catheter has been placed since the last exam. The tip is in the superior vena cava. Cardiomediastinal silhouette is magnified by technique. There is mild cardiomegaly. The technique utilized in obtaining the radiograph has magnified the cardiac silhouette and accentuated the interstitial markings. There is no significant change in the appearance of the lung [place]. No acute patchy parenchymal opacities or pleural effusions have developed. The osseous structures are unchanged. IMPRESSION: Right-sided internal jugular central venous catheter placement and other findings as described above. Electronically Signed by Ramirez Austin DO 10/21/2019 09:23 A
[2019-10-21] MEDS ORDERED: NS 1,000 ML IV ONE (09:30)
--- NOTE | 2019-10-21 12:14 | IPNPDOC ---
Subjective Date Seen The patient was seen on 10/21/19. Subjective Chief Complaint/HPI Patient was transferred to ICU last evening as she did not respond to fluid resuscitation. Unfortunately patient did not get any fluids for the first 6 hours of her ED stay. She did get a dose of ceftriaxone but no cultures were drawn. Fluid boluses were ordered by me after admission at around 5 pm. After 2 boluses she was becoming SOB so with her h/o CHF further boluses were not given . She was moved to ICU and started on levophed. This am pateint says that she feels better. Denies any SOB, denies any nausea or vomiting, says had one voi ding before going to bed and none yet in the am. complains of some pain in the right heel. Denies any chills. Objective Physical Examination General Exam: Positive: Alert, Cooperative, No Acute Distress Eye Exam: Positive: PERRLA, Conjunctiva & lids normal, EOMI; Negative: Sclera icteric ENT Exam: Positive: Atraumatic, Mucous membr. moist/pink, Pharynx Normal Neck Exam: Positive: Supple; Negative: JVD, thyromegaly Chest Exam: Positive: Clear to auscultation, Normal air movement Heart Exam: Positive: Rate Normal, Regular Rhythm, Normal S1, Normal S2; Negative: Murmurs, Rubs Telemetry: Positive: No significant arrhythmia Abdomen Exam: Positive: Normal bowel sounds, Soft; Negative: Tenderness, Hepatospenomegaly Extremity Exam: Positive: Edema (bilateral pitting and nonpitting), Tenderness (right heel), Swelling (bilateral ) Skin Exam: Positive: Rash (in the bdominal folds.), Breakdown (venous stasis ulcer on right lemus), Lesion (pressure ulcer on right heel and a very small one on the left foot also), Other skin issue (bilateral lymphedema, bilateral redness with redness of the left extending up to the thing) Neuro Exam: Positive: Normal Gait, Normal Speech, Strength at 5/5 X4 ext, Normal Tone, Reflexes 2+ Psych Exam: Positive: Mental status NL, Mood NL, Oriented x 3 Assessment /Plan Assessment 69 year old female with PMH of morbid obesity, bilateral lower extremity lymphedema, type 2 diabetes not on insulin, hypertension, depression, dyslipidemia, chronic kidney disease (CKD), gout, diastolic congestive heart failure , diabetic neuropathy , PVD, chronic venous stasis, h/o uterine cancer in 2011 presented to the ED with 1 week history of dizziness and nausea. Patient was being treated for a UTI and leg ulcer with doxycycline from 10/13 and also nitrofurantoin. Patient had developed a blood filled blister on the lemus of right leg about 3 weeks ago which then burst open and now is an superficial venous stasis ulcer of size 5 cm x 3 cm which her daughter has been dressing with tripple ointment and dry gauge cover. They also noticed another ulcer on alfred heel of the right foot which started at bout the same time about 2 cm x 1 cm in size and has increased in size. From yesterday daughter noticed that her left leg was more red and warm than usual with the redness extending up to the thighs. Normally both her legs are red but below the thigh. She also complained of chills, feeling warm and cold at home but did not check her temperature. In the ED she spiked a fever of 102.3. pulse> 90, RR 18-21, She was hypotensive with SBPs in 90s lowest being 83/49, had a wbc of 11.4, lactate of 3.7, elevated ESR, creatinine of 1.5. She was admitted for Cellulitis of left leg with sepsis. Septic shock did not responded to fluids so was started on levophed overnight. from Skin and soft tissue infection On Zosyn and vancomycin. BP still soft and no signs of fluid overload so given a bolus this am. hold all antihypertensives and diuretics. Cellulitis of left leg with ulcers on right leg. Zosyn and vancomycin. Hypotension normally patient is hypertensive now hypotension due to sepsis hold all antihypertensives Diabetes with neuropathy will put on lispro sliding scale with FS Ac and HS gabapentin Bilateral venous stasis with lymphedema, stasis rubor Now with right venous stasis ulcer will send wound culture. wound care CKD stage 3 creatinine at baseline will continue to monitor. Dyslipidemia continue home meds depression continue home meds Diastolic CHF Echo in 2012 reviewed. No signs of fluid overload at present. Gout continue allopurinol untreated CARLA has home oxygen does not use it. No CPAP machine at home Plan/VTE VTE Prophylaxis Ordered?: Yes VS, I&O, 24H, Fishbone Vital Signs/I&O Vital Signs Date Time Temp Pulse Resp B/P (MAP) Pulse Ox O2 Delivery O2 Flow Rate FiO2 10/21/19 11:00 87 129/70 (89) Room Air 10/21/19 10:00 96 10/21/19 09:00 2.0 10/21/19 08:00 98.5 10/21/19 04:00 14 I&O- Last 24 Hours up to 6 AM 10/21/19 05:59 Intake Total 2991.5 ml Output Total 425 ml Balance 2566.5 ml Laboratory Data 24H LABS Laboratory Tests 2 10/20/19 15:15: Lactic Acid Level 3.7*H 10/20/19 16:49: Urine Color YELLOW, Urine Appearance HAZY, Urine pH 5.0, Urine Specific [place] 1.014, Urine Protein 1+H, Urine Glucose (UA) NEGATIVE, Urine Ketones NEGATIVE, Urine Blood 3+H, Urine Nitrite NEGATIVE, Urine Bilirubin NEGATIVE, Urine Urobilinogen 0.2, Urine Leukocyte Esterase TRACEH, Urine WBC (Auto) TNTCH, Urine RBC (Auto) TNTCH, Urine Hyaline Casts (Auto) 0, Urine Bacteria (Auto) NEGATIVE, Urine Squamous Epithelial Cells 4, Urine Sperm (Auto) 10/20/19 17:21: Blood Gas Bicarbonate Standard 22.9, Arterial Blood pH 7.513H, Arterial Blood Partial Pressure CO2 25.2L, Arterial Blood Partial Pressure O2 98.6, Arterial Blood Total CO2 20.6L, Arterial Blood HCO3 19.8L, Arterial Blood Base Excess - 1.9, Arterial Blood Oxygen Saturation 97.9 10/20/19 18:36: Bedside Glucose (Misc Panel) 237H 10/20/19 19:39: Lactic Acid Followup at 4 Hours 4.6*H 10/20/19 21:54: Bedside Glucose (Misc Panel) 172H 10/21/19 00:03: Lactic Acid Level 2.1*H 10/21/19 04:14: Lactic Acid Followup at 4 Hours 1.2, Nucleated Red Blood Cells % (auto) 0.0, Ne utrophils 85H, Lymphocytes (Manual) 12L, Monocytes (Manual) 3, Anisocytosis 1+, Platelet Estimate NORMAL, Anion Gap 4L, Glomerular Filtration Rate 35.8L, Calcium Level 8.1L CBC/BMP Laboratory Tests 10/21/19 04:14 Microbiology Microbiology 10/20/19 Gram Stain, Received Pending 10/20/19 Wound Culture, Received Pending 10/20/19 Blood Culture, Received Pending 10/20/19 Blood Culture, Received Pending 10/20/19 Urine Culture, Received Pending LUTHER BUI MD Oct 21, 2019 12:14
[2019-10-21] MEDS: VANCOMYCIN HCL 1,000 MG, VIAL MATE ADAPTER 1 EACH in D5W 250 ML IV SCH (14:30)
[2019-10-21] MEDS: VANCOMYCIN HCL 750 MG, VIAL MATE ADAPTER 1 EACH in D5W 250 ML IV SCH (15:58)
[2019-10-21] MEDS ORDERED: cefTRIAXone SOD 2 GM in D5W MINI-BAG PLUS 50 ML IV SCH (17:00)
--- NOTE | 2019-10-21 19:06 | PHACANCOPD ---
PHARMACY VANCOMYCIN DOSING Pt Demographics Demographics Patient Age:69 , Weight:111.200 , Gender: female Adjusted Body Weight Date: 10/21/19, Adjusted Body Weight: Kg Events Past 24 Hours Events Past 24 Hours: YES: Elevation in WBC; NO: Dialysis, Diuretic Therapy, Change in CrCl, Fever, Pending Diagnostics, Pending Procedures, Other Vancomycin Vancomycin indication: Skin and soft tissue infection Vancomycin Target Ranges: 15-20 mcg/ml Vancomycin Load Y/N: Yes Load Dose Date Time Vancomycin Load Dose: 2000mg Date: 10/20/19 Time: Vancomycin Dose Date: 10/21/19. Current Vancomycin Dose: [ 1750mg q18h @1400 ] Intermittent Dosing?: No Labs Labs Vital Signs Label Value Date Time Patient Temperature 97.8 degrees F 10/21/19 1600 Temperature Source Temporal 10/21/19 1600 Patient Temperature 97.8 degrees F 10/21/19 1200 Temperature Source Temporal 10/21/19 1200 Blood Pressure Assessment 93/50 (64) 10/21/19 1200 Blood Pressure Assessment 131/57 (81) 10/21/19 1600 Blood Pressure Assessment 145/78 (100) 10/21/19 1630 Blood Pressure Assessment 156/101 (119) 10/21/19 1710 Item Value Date Time White Blood Count 11.4 10^3/uL H 10/20/19 1142 White Blood Count 22.1 10^3/uL H 10/21/19 0414 Lactic Acid Level 2.1 MMOL/L *H 10/21/19 0003 Lactic Acid Followup at 4 Hours 4.6 MMOL/L *H 10/20/19 1939 Micro Microbiology 10/20/19 Gram Stain - Final, Resulted 10/20/19 Wound Culture, Resulted Pending 10/20/19 Blood Culture, Received Pending 10/20/19 Blood Culture - Preliminary, Resulted No growth after 24 hours . All specim... 10/20/19 Urine Culture - Final, Complete Creatinine Clearance Date:10/21/19. Creatinine Clearance: [ 27.7 mL/min ]. Assessment and Plan Maintaining Current Dose?: Yes Reason for dose change: No Dose Change Pharmacist Note Pharmacist Note Date: 10/21/19. Pharmacist note: Patient was admitted to [facility] for bilateral skin and soft tissue infections. She was placed on vancomycin for IV antibiotic therapy. An initial loading dose of 2 grams was given, then a maintenance dose of 1750mg every 18 hours starting @ 1400 on 10/21/19 initiated. A trough was scheduled for 0700 on 10/22/19 to determine steady state. We will continue to monitor and make adjustments as necessary. [facility] Oct 21, 2019 19:06
[2019-10-21] MEDS: SIMVASTATIN 20 MG TAB PO SCH (20:05)
[2019-10-22] VITALS (13 sets, daily range): BP systolic 82–123; BP diastolic 44–80
[2019-10-22] MEDS: PIPERACILLIN/TAZOBACTAM SOD 3.375 GM in D5W MINI-BAG PLUS 50 ML IV SCH ×4 (04:13→21:07)
[2019-10-22 06:46] LABS: BASO % 0.2 % (0.0-1.0); EOS # 0.2 10^3/uL (0.0-0.5); EOS % 1.6 % (0.0-3.0); HEMATOCRIT 29.1 % (36.0-47.0); HEMOGLOBIN 9.3 g/dl (12.0-15.5); LYMPH # 1.8 10^3/uL (1.5-5.0); LYMPH % 13.1 % (24.0-44.0); MEAN CORPUSCULAR HEMOGLOBIN 33.3 pg (27.0-33.0); MEAN CORPUSCULAR VOLUME 104.3 fl (80.0-96.0); MONO % 7.3 % (0.0-5.0); NEUTROPHILS # 10.6 10^3/uL (1.5-8.5); NEUTROPHILS % 76.9 % (36.0-66.0); PLATELET COUNT, AUTOMATED 119 10^3/uL (150-450); RED BLOOD COUNT 2.79 10^6/uL (4.00-5.40); WHITE BLOOD COUNT 13.8 10^3/uL (4.0-10.0)
[2019-10-22 07:10] LABS: CALCIUM LEVEL 7.6 MG/DL (8.8-10.2); CREATININE FOR GFR 1.71 MG/DL (0.55-1.30); GLOMERULAR FILTRATION RATE 31.7 (>45); POTASSIUM SERUM 3.2 MEQ/L (3.5-5.1)
[2019-10-22] MEDS: HumaLOG INSULIN (NovoLOG) PER UNIT SC SCH ×4 (08:32→21:00)
[2019-10-22] MEDS: buPROPion **SR TABLET** (ZYBAN) 150MG PO SCH ×2 (08:32→21:06)
[2019-10-22] MEDS: DOCUSATE SODIUM 100 MG CAP PO SCH ×2 (08:33→21:06)
[2019-10-22] MEDS: FLUoxetine 20 MG CAP PO SCH (08:33)
[2019-10-22] MEDS: ALLOPURINOL 300 MG TAB PO SCH (08:33)
[2019-10-22] MEDS: GABAPENTIN 300 MG CAP PO SCH ×2 (08:33→21:06)
[2019-10-22] MEDS: ASPIRIN 81 MG ENTERIC TAB PO SCH (08:34)
[2019-10-22] MEDS: NYSTATIN 100,000 UNITS/GM TOPICAL PWD 15 GM TOP SCH ×2 (08:35→21:06)
[2019-10-22] MEDS: VANCOMYCIN HCL 1,000 MG, VIAL MATE ADAPTER 1 EACH in D5W 250 ML IV SCH (08:35)
[2019-10-22] MEDS: HEPARIN SOD (PORCINE) 5000 UNITS/ML VIAL SC SCH ×2 (08:40→21:06)
[2019-10-22] MEDS ORDERED: POTASSIUM CHLORIDE 10 MEQ SR TABLET PO ONE (10:00)
[2019-10-22] MEDS: VANCOMYCIN HCL 750 MG, VIAL MATE ADAPTER 1 EACH in D5W 250 ML IV SCH (10:30)
--- NOTE | 2019-10-22 11:07 | IPNPDOC ---
Subjective Date Seen The patient was seen on 10/22/19. Subjective Chief Complaint/HPI Had an episode of hypotension for about 1 hour in the afternoon when she was dizzy while she was laying down in bed and had to be restarted on levophed then stopped after 1 hour as she had become hypertensive. Her CVp was 19. Then is the evening she was back to baseline was having a dinner and did not have any complaints. Overnight did not need any more levophed. Also had another episode of dizziness after coming back from using the commode when she sat on the side of the bed and suddenly turned her head to the right. Appetite normal. Redness of the left thigh has improved now mostly below the knees. Objective Physical Examination General Exam: Positive: Alert, Cooperative, No Acute Distress Eye Exam: Positive: PERRLA, Conjunctiva & lids normal, EOMI; Negative: Sclera icteric ENT Exam: Positive: Atraumatic, Mucous membr. moist/pink, Pharynx Normal Neck Exam: Positive: Supple; Negative: JVD, thyromegaly Chest Exam: Positive: Clear to auscultation, Normal air movement Heart Exam: Positive: Rate Normal, Regular Rhythm, Normal S1, Normal S2; Negative: Murmurs, Rubs Telemetry: Positive: No significant arrhythmia Abdomen Exam: Positive: Normal bowel sounds, Soft; Negative: Tenderness, Hepatospenomegaly Extremity Exam: Positive: Edema (bilateral pitting and nonpitting), Tenderness (right heel), Swelling (bilateral ), Other (bilateral lymphedema.) Skin Exam: Positive: Rash (in the abdominal folds.), Breakdown (ulcer ont he right lemus), Lesion (pressure ulcer on right heel and a very small one on the left foot also), Other skin issue (bilateral lymphedema, bilateral redness with redness ) Neuro Exam: Positive: Normal Gait, Normal Speech, Strength at 5/5 X4 ext, Normal Tone, Reflexes 2+ Psych Exam: Positive: Mental status NL, Mood NL, Oriented x 3 Assessment /Plan Assessment 69 year old female with PMH of morbid obesity, bilateral lower extremity lymphedema, type 2 diabetes not on insulin, hypertension, depression, dyslipidemia, chronic kidney disease (CKD), gout, diastolic congestive heart failure , diabetic neuropathy , PVD, chronic venous stasis, h/o uterine cancer in 2011 presented to the ED with 1 week history of dizziness and nausea. Patient was being treated for a UTI and leg ulcer with doxycycline from 10/13 and also nitrofurantoin. Patient had developed a blood filled blister on the lemus of right leg about 3 weeks ago which then burst open and now is an superficial veno us stasis ulcer of size 5 cm x 3 cm which her daughter has been dressing with tripple ointment and dry gauge cover. They also noticed another ulcer on alfred heel of the right foot which started at bout the same time about 2 cm x 1 cm in size and has increased in size. From yesterday daughter noticed that her left leg was more red and warm than usual with the redness extending up to the thighs. Normally both her legs are red but below the thigh. She also complained of chills, feeling warm and cold at home but did not check her temperature. In the ED she spiked a fever of 102.3. pulse> 90, RR 18-21, She was hypotensive with SBPs in 90s lowest being 83/49, had a wbc of 11.4, lactate of 3.7, elevated ESR, creatinine of 1.5. She was admitted for Cellulitis of left leg with sepsis. Septic shock from Skin and soft tissue infection On Zosyn and vancomycin. BP still soft hold all antihypertensives and diuretics. Cellulitis of left leg with ulcers on right leg. Zosyn and vancomycin. Hypotension normally patient is hypertensive now hypotension due to sepsis hold all antihypertensives Diabetes with neuropathy will put on lispro sliding scale with FS Ac and HS gabapentin Bilateral venous stasis with lymphedema, stasis rubor Now with right venous stasis ulcer will send wound culture. wound care CKD stage 3 creatinine at baseline will continue to monitor. Dyslipidemia continue home meds depression continue home meds Diastolic CHF Echo in 2013 reviewed. No signs of fluid overload at present. Gout continue allopurinol untreated CARLA has home oxygen does not use it. No CPAP machine at home Plan/VTE VTE Prophylaxis Ordered?: Yes VS, I&O, 24H, Fishbone Vital Signs/I&O Vital Signs Date Time Temp Pulse Resp B/P (MAP) Pulse Ox O2 Delivery O2 Flow Rate FiO2 10/22/19 06:01 93 108/51 (70) 10/22/19 04:01 98.3 16 95 Room Air 10/22/19 04:00 2.0 I&O- Last 24 Hours up to 6 AM 10/22/19 06:00 Intake Total 2440 ml Output Total 850 ml Balance 1590 ml Laboratory Data 24H LABS Laboratory Tests 2 10/21/19 17:02: Bedside Glucose (Misc Panel) 151H 10/21/19 19:58: Bedside Glucose (Misc Panel) 113 10/22/19 06:25: Immature Granulocyte % (Auto) 0.9, Neutrophils (%) (Auto) 76.9H, Lymphocytes (%) (Auto) 13.1L, Monocytes (%) (Auto) 7.3H, Eosinophils (%) (Auto) 1.6, Basophils (%) (Auto) 0.2, Neutrophils # (Auto) 10.6H, Lymphocytes # (Auto) 1.8, Monocytes # (Auto) 1.0H, Eosinophils # (Auto) 0.2, Basophils # (Auto) 0.0, Nucleated Red Blood Cells % (auto) 0.0, Anion Gap 9, Glomerular Filtration Rate 31.7L, Calcium Level 7.6L, Vancomycin Level Trough 15.9 CBC/BMP Laboratory Tests 10/22/19 06:25 Microbiology Microbiology 10/20/19 Gram Stain - Final, Resulted 10/20/19 Wound Culture, Resulted Pending 10/20/19 Blood Culture - Preliminary, Resulted No growth after 24 hours . All specim... 10/20/19 Blood Culture - Preliminary, Resulted No growth after 24 hours . All specim... 10/20/19 Urine Culture - Final, Complete LUTHER BUI MD Oct 22, 2019 09:25
[2019-10-22] MEDS: SIMVASTATIN 20 MG TAB PO SCH (21:06)
[2019-10-23] VITALS: BP 129/56
[2019-10-23] MEDS: VANCOMYCIN HCL 1,000 MG, VIAL MATE ADAPTER 1 EACH in D5W 250 ML IV SCH ×2 (02:11→20:25)
[2019-10-23] MEDS: VANCOMYCIN HCL 750 MG, VIAL MATE ADAPTER 1 EACH in D5W 250 ML IV SCH ×2 (03:17→21:34)
[2019-10-23] MEDS: PIPERACILLIN/TAZOBACTAM SOD 3.375 GM in D5W MINI-BAG PLUS 50 ML IV SCH ×4 (04:21→23:12)
[2019-10-23 08:02] VITALS: BP 120/58
[2019-10-23 08:04] LABS: CALCIUM LEVEL 7.2 MG/DL (8.8-10.2); CREATININE FOR GFR 1.71 MG/DL (0.55-1.30); GLOMERULAR FILTRATION RATE 31.7 (>45); POTASSIUM SERUM 3.4 MEQ/L (3.5-5.1)
[2019-10-23 08:22] LABS: BASO % 0.2 % (0.0-1.0); EOS # 0.5 10^3/uL (0.0-0.5); EOS % 5.9 % (0.0-3.0); HEMATOCRIT 28.2 % (36.0-47.0); HEMOGLOBIN 9.3 g/dl (12.0-15.5); LYMPH # 1.8 10^3/uL (1.5-5.0); MEAN CORPUSCULAR HEMOGLOBIN 33.7 pg (27.0-33.0); MEAN CORPUSCULAR VOLUME 102.2 fl (80.0-96.0); MONO # 0.7 10^3/uL (0.0-0.8); MONO % 7.5 % (0.0-5.0); NEUTROPHILS # 5.8 10^3/uL (1.5-8.5); NEUTROPHILS % 65.7 % (36.0-66.0); PLATELET COUNT, AUTOMATED 129 10^3/uL (150-450); RED BLOOD COUNT 2.76 10^6/uL (4.00-5.40); WHITE BLOOD COUNT 8.8 10^3/uL (4.0-10.0)
[2019-10-23] MEDS: HumaLOG INSULIN (NovoLOG) PER UNIT SC SCH ×4 (08:26→20:26)
[2019-10-23] MEDS: buPROPion **SR TABLET** (ZYBAN) 150MG PO SCH ×2 (08:26→20:25)
[2019-10-23] MEDS: DOCUSATE SODIUM 100 MG CAP PO SCH ×2 (08:26→20:26)
[2019-10-23] MEDS: FLUoxetine 20 MG CAP PO SCH (08:26)
[2019-10-23] MEDS: ASPIRIN 81 MG ENTERIC TAB PO SCH (08:26)
[2019-10-23] MEDS: GABAPENTIN 300 MG CAP PO SCH ×2 (08:26→20:26)
[2019-10-23] MEDS: ALLOPURINOL 300 MG TAB PO SCH (08:27)
[2019-10-23] MEDS: NYSTATIN 100,000 UNITS/GM TOPICAL PWD 15 GM TOP SCH ×2 (08:27→20:27)
--- NOTE | 2019-10-23 09:50 | IPNPDOC ---
Subjective Date Seen The patient was seen on 10/23/19. Subjective Chief Complaint/HPI No complaints this am. Had a good night no issues as per nurses. Does continue to have intermittent dizzines with change in posture and head need to be evaluated for vestibular function. no fever or chills. Objective Physical Examination General Exam: Positive: Alert, Cooperative, No Acute Distress Eye Exam: Positive: PERRLA, Conjunctiva & lids normal, EOMI; Negative: Sclera icteric ENT Exam: Positive: Atraumatic, Mucous membr. moist/pink, Pharynx Normal Neck Exam: Positive: Supple; Negative: JVD, thyromegaly Chest Exam: Positive: Clear to auscultation, Normal air movement Heart Exam: Positive: Rate Normal, Regular Rhythm, Normal S1, Normal S2; Negative: Murmurs, Rubs Telemetry: Positive: No significant arrhythmia Abdomen Exam: Positive: Normal bowel sounds, Soft; Negative: Tenderness, Hepatospenomegaly Extremity Exam: Positive: Edema (bilateral pitting and nonpitting), Tenderness (right heel), Swelling (bilateral ), Other (bilateral lymphedema.) Skin Exam: Positive: Rash (in the abdominal folds.), Breakdown (ulcer ont he right lemus), Lesion (pressure ulcer on right heel and a very small one on the left foot also), Other skin issue (bilateral lymphedema, bilateral redness with redness ) Neuro Exam: Positive: Normal Gait, Normal Speech, Strength at 5/5 X4 ext, Normal Tone, Reflexes 2+ Psych Exam: Positive: Mental status NL, Mood NL, Oriented x 3 Assessment /Plan Assessment 69 year old female with PMH of morbid obesity, bilateral lower extremity lymphedema, type 2 diabetes not on insulin, hypertension, depression, dyslipidemia, chronic kidney disease (CKD), gout, diastolic congestive heart failure , diabetic neuropathy , PVD, chronic venous stasis, h/o uterine cancer in 2011 presented to the ED with 1 week history of dizziness and nausea. Patient was being treated for a UTI and leg ulcer with doxycycline from 10/13 and also nitrofurantoin. Patient had developed a blood filled blister on the lemus of right leg about 3 weeks ago which then burst open and now is an superficial venous stasis ulcer of size 5 cm x 3 cm which her daughter has been dressing with tripple ointment and dry gauge cover. They also noticed another ulcer on alfred heel of the right foot which started at bout the same time about 2 cm x 1 cm in size and has increased in size. From yesterday daughter noticed that her left leg was more red and warm than usual with the redness extending up to the thighs. Normally both her legs are red but below the thigh. She also complained of chills, feeling warm and cold at home but did not check her temperature. In the ED she spiked a fever of 102.3. pulse> 90, RR 18-21, She was hypotensive with SBPs in 90s lowest being 83/49, had a wbc of 11.4, lactate of 3.7, elevated ESR, creatinine of 1.5. She was admitted for Cellulitis of left leg with sepsis. Septic shock from Skin and soft tissue infection off levophed. On Zosyn and vancomycin. blood cultures negative till date BP still soft hold all antihypertensives and diuretics. Cellulitis of left leg with ulcers on right leg. Zosyn and vancomycin. Hypotension improved. now normal antihypertensives to be restarted when bp starts rising. Diabetes with neuropathy will put on lispro sliding scale with FS Ac and HS gabapentin Bilateral venous stasis with lymphedema, stasis rubor Now with right venous stasis ulcer and right heel pressure ulcer wound care wound culture strep agalactiae, coagulase negative staph. CKD stage 3 creatinine at baseline will continue to monitor. Dyslipidemia continue home meds depression continue home meds Diastolic CHF Echo in 2013 reviewed. No signs of fluid overload at present. Gout continue allopurinol untreated CARLA has home oxygen does not use it. No CPAP machine at home Plan/VTE VTE Prophylaxis Ordered?: Yes VS, I&O, 24H, Fishbone Vital Signs/I&O Vital Signs Date Time Temp Pulse Resp B/P (MAP) Pulse Ox O2 Delivery O2 Flow Rate FiO2 10/23/19 04:00 2.0 10/23/19 00:00 98.3 95 18 129/56 (80) 96 Room Air I&O- Last 24 Hours up to 6 AM 10/23/19 05:59 Intake Total 2570 ml Output Total 1350 ml Balance 1220 ml Laboratory Data 24H LABS Laboratory Tests 2 10/22/19 12:07: Bedside Glucose (Misc Panel) 159H 10/22/19 17:41: Bedside Glucose (Misc Panel) 84 Microbiology Microbiology 10/20/19 Gram Stain - Final, Resulted 10/20/19 Wound Culture, Resulted Pending 10/20/19 Blood Culture - Preliminary, Resulted No Growth after 48 hours. All Specime... 10/20/19 Blood Culture - Preliminary, Resulted No Growth after 48 hours. All Specime... 10/20/19 Urine Culture - Final, Complete LUTHER BUI MD Oct 23, 2019 07:01
[2019-10-23] MEDS ORDERED: POTASSIUM CHLORIDE 10 MEQ SR TABLET PO ONE (10:00)
[2019-10-23] MEDS: HEPARIN SOD (PORCINE) 5000 UNITS/ML VIAL SC SCH ×2 (10:11→20:25)
[2019-10-23 11:45] VITALS: BP 133/67
[2019-10-23] MEDS: SIMVASTATIN 20 MG TAB PO SCH (20:26)
[2019-10-23 20:35] VITALS: BP 136/62
--- NOTE | 2019-10-23 22:52 | RO ---
DATE OF PROCEDURE: 10/20/2019 PREPROCEDURE DIAGNOSIS: POSTPROCEDURE DIAGNOSIS: PROCEDURE: Central venous catheter placement into the right internal jugular vein. PERFORMING PHYSICIAN/SURGEON: Dr. Guido Bah, PGY-2 ATTENDING PHYSICIAN: Dr. Loida Benitez INDICATION: Sepsis/septic shock. CONSENT: Consent was obtained prior to the procedure. Indications, risks and benefits were explained to the patient. The procedure was performed in the intensive care unit (ICU). DESCRIPTION OF PROCEDURE: The patient was placed in the supine position, was placed in Trendelenburg. The right chest region and neck was prepped with chlorhexidine scrub. The patient was draped in the typical sterile fashion using a full drape. Ultrasonography was employed at bedside. A sterile probe cover was placed over the ultrasound. The medial and lateral head of the sternocleidomastoid were identified, as was the carotid pulse. The internal jugular vein was identified using ultrasound. Anesthesia was achieved over the internal jugular vein on the right using a 1% lidocaine solution. Once anesthetized, an introducer needle was inserted into the internal jugular vein under direct ultrasound visualization. Venous blood was withdrawn, syringe was removed and a guidewire was advanced on to the introducer needle. The guidewire was visualized in the internal jugular vein by ultrasound. A small incision was made in the skin surface with a scalpel, and the introducer needle was exchanged for a dilator over the guidewire. After appropriate dilation was obtained, the dilator was exchanged over the wire for a central venous catheter. The wire was removed, and the catheter was sutured in place. A sterile bandage was placed over the catheter site. The patient tolerated the procedure well without any hemodynamic compromise. At the time of procedure completion, all ports were aspirated and flushed properly. Postprocedure x-ray was performed, which demonstrated adequate positioning of the central venous catheter in the right internal jugular vein. COMPLICATIONS: None. MTDD
[2019-10-24] MEDS ORDERED: SODIUM CHLORIDE 0.9% INJ 10 ML SYR IV PRN (01:45)
[2019-10-24] MEDS: PIPERACILLIN/TAZOBACTAM SOD 3.375 GM in D5W MINI-BAG PLUS 50 ML IV SCH ×4 (04:23→21:59)
[2019-10-24] MEDS: SODIUM CHLORIDE 0.9% INJ 10 ML SYR IV SCH ×3 (05:53→22:00)
[2019-10-24 06:00] VITALS: BP 120/61
[2019-10-24 07:00] LABS: BASO % 0.3 % (0.0-1.0); EOS # 0.4 10^3/uL (0.0-0.5); EOS % 6.5 % (0.0-3.0); HEMATOCRIT 27.9 % (36.0-47.0); HEMOGLOBIN 9.1 g/dl (12.0-15.5); LYMPH # 1.3 10^3/uL (1.5-5.0); LYMPH % 19.9 % (24.0-44.0); MEAN CORPUSCULAR HEMOGLOBIN 33.6 pg (27.0-33.0); MEAN CORPUSCULAR HGB CONC 32.6 g/dl (32.0-36.5); MONO # 0.5 10^3/uL (0.0-0.8); MONO % 8.2 % (0.0-5.0); NEUTROPHILS # 4.3 10^3/uL (1.5-8.5); NEUTROPHILS % 64.6 % (36.0-66.0); PLATELET COUNT, AUTOMATED 140 10^3/uL (150-450); RED BLOOD COUNT 2.71 10^6/uL (4.00-5.40); WHITE BLOOD COUNT 6.6 10^3/uL (4.0-10.0)
[2019-10-24 07:23] LABS: CALCIUM LEVEL 8.3 MG/DL (8.8-10.2); CREATININE FOR GFR 1.44 MG/DL (0.55-1.30); GLOMERULAR FILTRATION RATE 38.7 (>45); POTASSIUM SERUM 3.8 MEQ/L (3.5-5.1)
[2019-10-24] MEDS: DOCUSATE SODIUM 100 MG CAP PO SCH ×2 (07:47→21:00)
[2019-10-24] MEDS: FLUoxetine 20 MG CAP PO SCH (07:54)
[2019-10-24] MEDS: GABAPENTIN 300 MG CAP PO SCH ×2 (07:54→21:58)
[2019-10-24] MEDS: buPROPion **SR TABLET** (ZYBAN) 150MG PO SCH ×2 (07:54→21:58)
[2019-10-24] MEDS: ALLOPURINOL 300 MG TAB PO SCH (07:55)
[2019-10-24] MEDS: ASPIRIN 81 MG ENTERIC TAB PO SCH (07:55)
[2019-10-24] MEDS: HEPARIN SOD (PORCINE) 5000 UNITS/ML VIAL SC SCH ×2 (07:55→21:00)
[2019-10-24] MEDS: NYSTATIN 100,000 UNITS/GM TOPICAL PWD 15 GM TOP SCH ×2 (07:56→21:00)
[2019-10-24] MEDS: HumaLOG INSULIN (NovoLOG) PER UNIT SC SCH ×3 (07:56→15:45)
--- NOTE | 2019-10-24 12:34 | IPNPDOC ---
Subjective Date Seen The patient was seen on 10/24/19. Subjective Chief Complaint/HPI Feels back to baseline. Left leg redness and inflammation has now resolved. SHe does have the chronic stasis rubor below the knees and lymphedema. No fever or chills, no chest pain or sob. no abdominal pain . Had some loose stools yesterday no abdominal pain or cramps. Objective Physical Examination General Exam: Positive: Alert, Cooperative, No Acute Distress Eye Exam: Positive: PERRLA, Conjunctiva & lids normal, EOMI; Negative: Sclera icteric ENT Exam: Positive: Atraumatic, Mucous membr. moist/pink, Pharynx Normal Neck Exam: Positive: Supple; Negative: JVD, thyromegaly Chest Exam: Positive: Clear to auscultation, Normal air movement Heart Exam: Positive: Rate Normal, Regular Rhythm, Normal S1, Normal S2; Negative: Murmurs, Rubs Telemetry: Positive: No significant arrhythmia Abdomen Exam: Positive: Normal bowel sounds, Soft; Negative: Tenderness, Hepatospenomegaly Extremity Exam: Positive: Edema (bilateral pitting and nonpitting), Tenderness (right heel), Swelling (bilateral ), Other (bilateral lymphedema.) Skin Exam: Positive: Rash (in the abdominal folds.), Breakdown (ulcer ont he right lemus), Lesion (pressure ulcer on right heel and a very small one on the left foot also), Other skin issue (bilateral lymphedema, bilateral redness with redness ) Neuro Exam: Positive: Normal Gait, Normal Speech, Strength at 5/5 X4 ext, Normal Tone, Reflexes 2+ Psych Exam: Positive: Mental status NL, Mood NL, Oriented x 3 Assessment /Plan Assessment 69 year old female with PMH of morbid obesity, bilateral lower extremity lymphedema, type 2 diabetes not on insulin, hypertension, depression, dyslipidemia, chronic kidney disease (CKD), gout, diastolic congestive heart failure , diabetic neuropathy , PVD, chronic venous stasis, h/o uterine cancer in 2011 presented to the ED with 1 week history of dizziness and nausea. Patient was being treated for a UTI and leg ulcer with doxycycline from 10/13 and also nitrofurantoin. Patient had developed a blood filled blister on the lemus of right leg about 3 weeks ago which then burst open and now is an superficial venous stasis ulcer of size 5 cm x 3 cm which her daughter has been dressing with tripple ointment and dry gauge cover. They also noticed another ulcer on alfred heel of the right foot which started at bout the same time about 2 cm x 1 cm in size and has increased in size. From yesterday daughter noticed that her left leg was more red and warm than usual with the redness extending up to the thighs. Normally both her legs are red but below the thigh. She also complained of chills, feeling warm and cold at home but did not check her temperature. In the ED she spiked a fever of 102.3. pulse> 90, RR 18-21, She was hypotensive with SBPs in 90s lowest being 83/49, had a wbc of 11.4, lactate of 3.7, elevated ESR, creatinine of 1.5. She was admitted for Cellulitis of left leg with sepsis. Septic shock from Skin and soft tissue infection off levophed. On Zosyn and vancomycin. blood cultures negative till date BP still soft hold all antihypertensives and diuretics. Cellulitis of left leg with ulcers on right leg. Zosyn and vancomycin. Hypotension improved. now normal antihypertensives to be restarted when bp starts rising. Diabetes with neuropathy will put on lispro sliding scale with FS Ac and HS gabapentin Bilateral venous stasis with lymphedema, stasis rubor Now with right venous stasis ulcer and right heel pressure ulcer wound care wound culture strep agalactiae, coagulase negative staph. CKD stage 3 creatinine at baseline will continue to monitor. Dyslipidemia continue home meds depression continue home meds Diastolic CHF Echo in 2013 reviewed. No signs of fluid overload at present. Gout continue allopurinol untreated CARLA has home oxygen does not use it. No CPAP machine at home Plan/VTE VTE Prophylaxis Ordered?: Yes VS, I&O, 24H, Fishbone Vital Signs/I&O Vital Signs Date Time Temp Pulse Resp B/P (MAP) Pulse Ox O2 Delivery O2 Flow Rate FiO2 10/24/19 06:00 97.7 93 18 120/61 (80) 97 Room Air 10/23/19 04:00 2.0 I&O- Last 24 Hours up to 6 AM 10/24/19 06:00 Intake Total 1810 ml Output Total 350 ml Balance 1460 ml Laboratory Data 24H LABS Laboratory Tests 2 10/24/19 06:40: Immature Granulocyte % (Auto) 0.5, Neutrophils (%) (Auto) 64.6, Lymphocytes (%) (Auto) 19.9L, Monocytes (%) (Auto) 8.2H, Eosinophils (%) (Auto) 6.5H, Basophils (%) (Auto) 0.3, Neutrophils # (Auto) 4.3, Lymphocytes # (Auto) 1.3L, Monocytes # (Auto) 0.5, Eosinophils # (Auto) 0.4, Basophils # (Auto) 0.0, Nucleated Red Blo od Cells % (auto) 0.0, Anion Gap 6L, Glomerular Filtration Rate 38.7L, Calcium Level 8.3#L CBC/BMP Laboratory Tests 10/24/19 06:40 Microbiology Microbiology 10/20/19 Gram Stain - Final, Complete 10/20/19 Wound Culture - Final, Complete Strep Agalactiae Group B Staphylococcus Sp Coag Neg 10/20/19 Blood Culture - Preliminary, Resulted No Growth after 72 hours. All specime... 10/20/19 Blood Culture - Preliminary, Resulted No Growth after 72 hours. All specime... 10/20/19 Urine Culture - Final, Complete LUTHER BUI MD Oct 24, 2019 12:34
[2019-10-24] MEDS: LACTOBACILLUS ACIDOPHILUS CAP (BACID) PO SCH ×2 (13:06→17:46)
[2019-10-24 14:00] VITALS: BP 132/71
[2019-10-24 20:44] VITALS: BP 136/60
[2019-10-24] MEDS: SIMVASTATIN 20 MG TAB PO SCH (21:59)
[2019-10-25] MEDS: PIPERACILLIN/TAZOBACTAM SOD 3.375 GM in D5W MINI-BAG PLUS 50 ML IV SCH ×2 (05:28→10:38)
[2019-10-25 06:24] LABS: BASO % 0.6 % (0.0-1.0); EOS # 0.8 10^3/uL (0.0-0.5); EOS % 11.8 % (0.0-3.0); HEMATOCRIT 29.7 % (36.0-47.0); HEMOGLOBIN 9.5 g/dl (12.0-15.5); LYMPH % 28.5 % (24.0-44.0); MEAN CORPUSCULAR HEMOGLOBIN 33.5 pg (27.0-33.0); MEAN CORPUSCULAR VOLUME 104.6 fl (80.0-96.0); MONO # 0.7 10^3/uL (0.0-0.8); MONO % 9.4 % (0.0-5.0); NEUTROPHILS # 3.4 10^3/uL (1.5-8.5); NEUTROPHILS % 49.1 % (36.0-66.0); PLATELET COUNT, AUTOMATED 148 10^3/uL (150-450); RED BLOOD COUNT 2.84 10^6/uL (4.00-5.40)
[2019-10-25 06:50] LABS: CALCIUM LEVEL 8.2 MG/DL (8.8-10.2); CREATININE FOR GFR 1.4 MG/DL (0.55-1.30); GLOMERULAR FILTRATION RATE 39.9 (>45); POTASSIUM SERUM 3.4 MEQ/L (3.5-5.1)
[2019-10-25 06:52] VITALS: BP 120/57
[2019-10-25] MEDS: SODIUM CHLORIDE 0.9% INJ 10 ML SYR IV SCH (06:52)
[2019-10-25] MEDS ORDERED: POTASSIUM CHLORIDE 10 MEQ SR TABLET PO ONE (07:30)
[2019-10-25] MEDS ORDERED: glipiZIDE (GLUCOTROL) 5 MG TAB PO SCH (07:30)
[2019-10-25] MEDS: DOCUSATE SODIUM 100 MG CAP PO SCH (07:44)
[2019-10-25] MEDS: buPROPion **SR TABLET** (ZYBAN) 150MG PO SCH (08:33)
[2019-10-25] MEDS: FLUoxetine 20 MG CAP PO SCH (08:34)
[2019-10-25] MEDS: NYSTATIN 100,000 UNITS/GM TOPICAL PWD 15 GM TOP SCH (08:34)
[2019-10-25] MEDS: LACTOBACILLUS ACIDOPHILUS CAP (BACID) PO SCH ×2 (08:34→12:37)
[2019-10-25] MEDS: ASPIRIN 81 MG ENTERIC TAB PO SCH (08:34)
[2019-10-25] MEDS: GABAPENTIN 300 MG CAP PO SCH (08:34)
[2019-10-25] MEDS: ALLOPURINOL 300 MG TAB PO SCH (08:34)
[2019-10-25] MEDS ORDERED: METO1TAB7 PO (08:53)
[2019-10-25] MEDS ORDERED: FURO40TA2 PO (08:53)
[2019-10-25] MEDS ORDERED: CEFD300CAP PO (08:54)
[2019-10-25] MEDS: HEPARIN SOD (PORCINE) 5000 UNITS/ML VIAL SC SCH (09:00)
--- NOTE | 2019-10-27 23:13 | DS.PDOC ---
Discharge Summary General Date of Admission Oct 20, 2019 at 17:16 Date of Discharge 10/25/19 Discharge Summary PROCEDURES PERFORMED DURING STAY: Central line placement and removal DISCHARGE DIAGNOSES: Septic Shock from Cellulitis Cellulitis of left leg Venous stasis ulcer on the right leg Pressure ulcer on right heel Untreated CARLA Chronic bilateral venous stasis with stasis rubor and lymphedema. SECONDARY DIAGNOSIS: Morbid obesity, bilateral lower extremity lymphedema, type 2 diabetes not on insulin, hypertension, depression, dyslipidemia, chronic kidney disease (CKD), gout, diastolic congestive heart failure , diabetic neuropathy , PVD, chronic venous stasis, h/o uterine cancer in 2011 COMPLICATIONS/CHIEF COMPLAINT: Cellulitiss Of Left Lower Extremity Sepsis. HISTORY OF PRESENT ILLNESS: See history and physical HOSPITAL COURSE: 69 year old female with PMH of morbid obesity, bilateral lower extremity lymphedema, type 2 diabetes not on insulin, hypertension, depression, dyslipidemia, chronic kidney disease (CKD), gout, diastolic congestive heart failure , diabetic neuropathy , PVD, chronic venous stasis, h/o uterine cancer in 2011 presented to the ED with 1 week history of dizziness and nausea. Patient was being treated for a UTI and leg ulcer with doxycycline from 10/13 and also nitrofurantoin. Patient had developed a blood filled blister on the lemus of right leg about 3 weeks ago which then burst open and now is an superficial venous stasis ulcer of size 5 cm x 3 cm which her daughter has been dressing with tripple ointment and dry gauge cover. They also noticed another ulcer on alfred heel of the right foot which started at bout the same time about 2 cm x 1 cm in size and has increased in size. From yesterday daughter noticed that her left leg was more red and warm than usual with the redness extending up to the thighs. Normally both her legs are red but below the thigh. She also complained of chills, feeling warm and cold at home but did not check her temperature. In the ED she spiked a fever of 102.3. pulse> 90, RR 18-21, She was hypotensive with SBPs in 90s lowest being 83/49, had a wbc of 11.4, lactate of 3.7, elevated ESR, creatinine of 1.5. She was admitted for Cellulitis of left leg with sepsis. Septic shock from Skin and soft tissue infection was on Levophed. Finished 5 days of Zosyn and vancomycin. Discharged with Cefdinir blood cultures negative Cellulitis of left leg with ulcers on right leg. Zosyn and vancomycin. Hypotension improved. now normal metoprolol dose lowered from 100 to 50 and lasix dose lowered from 80 to 40. Diabetes with neuropathy continue home med glipizide gabapentin Bilateral venous stasis with lymphedema, stasis rubor Now with right venous stasis ulcer and right heel pressure ulcer wound care wound culture strep agalactiae, coagulase negative staph. CKD stage 3 creatinine at baseline Dyslipidemia continue home meds depression continue home meds Diastolic CHF Echo in 2013 reviewed. No signs of fluid overload at present. Gout continue allopurinol Untreated CARLA has home oxygen does not use it. No CPAP machine at home DISCHARGE MEDICATIONS: Please see below. ALLERGIES: Please see below. PHYSICAL EXAMINATION ON DISCHARGE: VITAL SIGNS: Please see below. General Exam: Positive: Alert, Cooperative, No Acute Distress Eye Exam: Positive: PERRLA, Conjunctiva & lids normal, EOMI; Negative: Sclera icteric ENT Exam: Positive: Atraumatic, Mucous membr. moist/pink, Pharynx Normal Neck Exam: Positive: Supple; Negative: JVD, thyromegaly Chest Exam: Positive: Clear to auscultation, Normal air movement Heart Exam: Positive: Rate Normal, Regular Rhythm, Normal S1, Normal S2; Negative: Murmurs, Rubs Telemetry: Positive: No significant arrhythmia Abdomen Exam: Positive: Normal bowel sounds, Soft; Negative: Tenderness, Hepatospenomegaly Extremity Exam: Positive: Edema (bilateral pitting and nonpitting), Tenderness (right heel), Swelling (bilateral ), Other (bilateral lymphedema.) Skin Exam: Positive: Rash (in the abdominal folds.), Breakdown (ulcer on the right lemus), Lesion (pressure ulcer on right heel and a very small one on the left foot also), Other skin issue (bilateral lymphedema, bilateral redness) Neuro Exam: Positive: Normal Gait, Normal Speech, Strength at 5/5 X4 ext, Normal Tone, Reflexes 2+ Psych Exam: Positive: Mental status NL, Mood NL, Oriented x 3 LABORATORY DATA: Please see below. ACTIVITY: [As tolerated]. DIET: Carb consistent DISPOSITION: 01 Home, Self-Care. DISCHARGE INSTRUCTIONS: PMD in 1 week DISCHARGE CONDITION: [Stable]. TIME SPENT ON DISCHARGE: 35 minutes. Vital Signs/I&Os Vital Signs Date Time Temp Pulse Resp B/P (MAP) Pulse Ox O2 Delivery O2 Flow Rate FiO2 10/25/19 06:52 97.5 95 18 120/57 (78) 98 Room Air 10/23/19 04:00 2.0 Microbiology Microbiology 10/20/19 Gram Stain - Final, Complete 10/20/19 Wound Culture - Final, Complete Strep Agalactiae Group B Staphylococcus Sp Coag Neg 10/20/19 Blood Culture - Final, Complete NO GROWTH AFTER 5 DAYS 10/20/19 Blood Culture - Final, Complete NO GROWTH AFTER 5 DAYS 10/20/19 Urine Culture - Final, Complete Discharge Medications Scheduled Allopurinol (Zyloprim) 300 Mg Tab, 300 MG PO DAILY, (Reported) Aspirin (Aspirin EC) 81 Mg Tablet.dr, 81 MG PO DAILY, (Reported) Bupropion Hcl (Bupropion HCl Sr) 150 Mg Tab.sr.12h, 150 MG PO BID, (Reported) Calcitriol (Calcitriol) 0.25 Mcg Capsule, 0.25 MCG PO 3XW, (Reported) WED, WED, WED Cefdinir (Cefdinir) 300 Mg Capsule, 300 MG PO BID Docusate Sodium (Docusate Sodium) 100 Mg Capsule, 100 MG PO BID, (Reported) Fluoxetine Hcl (Fluoxetine HCl) 40 Mg Capsule, 40 MG PO DAILY, (Reported) Furosemide (Furosemide) 40 Mg Tab, 40 MG PO DAILY Gabapentin (Gabapentin) 600 Mg Tablet, 600 MG PO BID, (Reported) Glipizide (Glipizide ER) 5 Mg Tab, 5 MG PO DAILY, (Reported) Magnesium Oxide (Magnesium Oxide) 400 Mg Tab, 400 MG PO 3XW, (Reported) WED, WED, WED Metoprolol Succinate (Metoprolol Succinate) 50 Mg Tab.er.24h, 50 MG PO DAILY Niacin (Niacin ER) 1,000 Mg Tab, 1,000 MG PO QHS, (Reported) Nitrofurantoin Monohyd/M-Cryst (Nitrofurantoin Hudson-Mcr 100 mg) 100 Mg Capsule, 100 MG PO DAILY, (Reported) Nystatin (Nystatin Powder) 15 Gm Powder, 1 DOSE TOP ASDIRECTED, (Reported) APPLY UNDER BREASTS AND ABDOMINAL FOLDS AFTER SHOWER Simvastatin (Simvastatin) 20 Mg Tablet, 20 MG PO QHS, (Reported) Scheduled PRN Hydrocodone/Acetaminophen (Hydrocodone-Acetamin 5-325 mg) 1 Each Tablet, 1 TAB PO Q6H PRN for PAIN, (Reported) Allergies Coded Allergies: No Known Allergies (Verified Allergy, Unknown, 10/20/19) LUTHER BUI MD Oct 27, 2019 23:13
== END 2019-10-25 14:20 | disposition home or self-care (01) | DRG 871 ==
LOC: M ED 10:33 → M ED INP 17:16 → M ICU 21:01 → M MS4PR 10-23 11:41
PROVIDERS: ADMIT Internal Medicine Nephrology; ATTEND Internal Medicine Nephrology
PROC: 02HV33Z Insertion of Infusion Device into Superior Vena Cava, Percutaneous Approach (ICD-10-PCS; principal; 2019-10-20)
DX: A41.9 Sepsis, unspecified organism (principal); R65.21 Severe sepsis with septic shock; I13.0 Hypertensive heart and chronic kidney disease with heart failure and stage 1 through stage 4 chronic kidney disease, or unspecified chronic kidney disease; I50.32 Chronic diastolic (congestive) heart failure; L97.419 Non-pressure chronic ulcer of right heel and midfoot with unspecified severity; L03.116 Cellulitis of left lower limb; Z68.42 Body mass index [BMI] 45.0-49.9, adult; L97.919 Non-pressure chronic ulcer of unspecified part of right lower leg with unspecified severity; E66.01 Morbid (severe) obesity due to excess calories; I89.0 Lymphedema, not elsewhere classified; E11.40 Type 2 diabetes mellitus with diabetic neuropathy, unspecified; F32.9 Major depressive disorder, single episode, unspecified; E78.5 Hyperlipidemia, unspecified; N18.3 Chronic kidney disease, stage 3 (moderate); E11.621 Type 2 diabetes mellitus with foot ulcer; M10.9 Gout, unspecified; E11.22 Type 2 diabetes mellitus with diabetic chronic kidney disease; E11.622 Type 2 diabetes mellitus with other skin ulcer; E11.51 Type 2 diabetes mellitus with diabetic peripheral angiopathy without gangrene; I87.2 Venous insufficiency (chronic) (peripheral); Z85.42 Personal history of malignant neoplasm of other parts of uterus; Z98.2 Presence of cerebrospinal fluid drainage device; Z79.84 Long term (current) use of oral hypoglycemic drugs; Z79.899 Other long term (current) drug therapy; Z90.710 Acquired absence of both cervix and uterus; Z90.722 Acquired absence of ovaries, bilateral

== ENCOUNTER 2019-11-29 17:01 | Inpatient (IN) | payer MEDICARE, MEDICAID ==
[~2019-11-29] VITALS: Ht 157.5 cm; Wt 121.0 kg
[~2019-11-29 17:01] MED LIST changes: +ASPI81TA26 PO; +BUPR150T5 PO; +CALC1CAP31 PO; +CEFD300CAP PO; +DOCU100C16 PO; +FLUO20CA20 PO; -FLUO20CA8 PO; +FLUO40CA PO; +GABA600T4 PO; +HYDR-3713 PO; +METO100T5 PO; +METO1TAB7 PO; +NITR100C2 PO; +NYST1POW9 TOP; +SIMV20TA22 PO
[2019-11-29] MEDS ORDERED: METO100T5 PO (17:57)
[2019-11-29] MEDS ORDERED: FURO40TA2 PO (17:57)
--- NOTE | 2019-11-29 18:28 | REP ---
Clinical: Cough Technique: AP and lateral Comparison: 10/20/2019. Findings: Subtle area of opacity in the right upper lung zone cannot be excluded. Mediastinum and cardiac silhouette normal. No further consolidation. No effusion. No pneumothorax. Skeletal structures demonstrate chronic degenerative changes and old left shoulder fracture. Impression: 1. Cannot exclude right upper lobe opacity. Electronically Signed by Aakash Richard MD 11/29/2019 06:19 P
[2019-11-29 18:36] LABS: HEMATOCRIT 40.8 % (36.0-47.0); HEMOGLOBIN 12.8 g/dl (12.0-15.5); MEAN CORPUSCULAR HEMOGLOBIN 32.7 pg (27.0-33.0); MEAN CORPUSCULAR HGB CONC 31.4 g/dl (32.0-36.5); MEAN CORPUSCULAR VOLUME 104.3 fl (80.0-96.0); PLATELET COUNT, AUTOMATED 242 10^3/uL (150-450); RED BLOOD COUNT 3.91 10^6/uL (4.00-5.40); WHITE BLOOD COUNT 21.6 10^3/uL (4.0-10.0)
--- NOTE | 2019-11-29 18:40 | REPVR ---
PROCEDURE INFORMATION: Exam: CT Head Without Contrast Exam date and time: 11/29/2019 5:57 PM Age: 69 years old Clinical indication: Pain; Headache; Additional info: Fall with confusion TECHNIQUE: Imaging protocol: Computed tomography of the head without contrast. Radiation optimization: All CT scans at this facility use at least one of these dose optimization techniques: automated exposure control; mA and/or kV adjustment per patient size (includes targeted exams where dose is matched to clinical indication); or iterative reconstruction. COMPARISON: CT Head without contrast 08/31/2018 4:03 PM (report not provided) FINDINGS: Brain: Normal. No hemorrhage. Unremarkable white matter. No mass effect. Ventricles: The ventricles and sulci are stable in configuration. Bones/joints: Unremarkable. No acute fracture. Sinuses: There is again chronic disease of the partially visualized left maxillary sinus. The visualized paranasal sinuses and air cells are otherwise clear. Mastoid air cells: Visualized mastoid air cells are well aerated. Soft tissues: Unremarkable. IMPRESSION: No CT evidence for acute intracranial abnormality. Electronically signed by: Cesar Haynes On 11/29/2019 18:40:02 PM
[2019-11-29] MEDS ORDERED: NS 1,000 ML IV ONE (18:45)
--- NOTE | 2019-11-29 18:45 | REPVR ---
PROCEDURE INFORMATION: Exam: CT Lumbar Spine Without Contrast Exam date and time: 11/29/2019 5:57 PM Age: 69 years old Clinical indication: Low back pain; Additional info: Fall, bruising tenderness TECHNIQUE: Imaging protocol: Computed tomography images of the lumbar spine without contrast. Radiation optimization: All CT scans at this facility use at least one of these dose optimization techniques: automated exposure control; mA and/or kV adjustment per patient size (includes targeted exams where dose is matched to clinical indication); or iterative reconstruction. COMPARISON: CR Spine. Lumbosacral, complete 10/17/2015 4:07 PM FINDINGS: Vertebrae: There is a mild dextroscoliotic curvature. Alignment is otherwise maintained. Vertebral body heights are intact. No acute fracture is identified. Discs/Spinal canal/Neural foramina: L5-S1 disc space is fused. There is multilevel disc space narrowing, facet arthrosis and marginal osteophyte formation with variable narrowing of several neural foramina. There is probably spinal stenosis at T12-L1, L3-4, L4-5 and L5-S1. Other bones/joints: The bones appear osteopenic. Gallbladder and bile ducts: Stones are present in the gallbladder. Vasculature: Atherosclerotic vascular calcifications are noted. Soft tissues: There is no significant paraspinal hematoma. IMPRESSION: 1. No acute fracture or dislocation identified. 2. Spondylosis with probable multilevel spinal stenosis. The discs, neural foramina and spinal canal could be better evaluated by means of MRI as clinically appropriate. 3. Apparent osteopenia. 4. Cholelithiasis. Electronically signed by: Cesar Haynes On 11/29/2019 18:45:08 PM
[2019-11-29 18:48] LABS: INR 1.6; PARTIAL THROMBOPLASTIN TIME 30.2 SECONDS (25.0-38.4); PROTHROMBIN TIME 18.8 SECONDS (11.8-14.0)
[2019-11-29 18:57] LABS: ATYPICAL LYMPH 7 % (0-5); LYMPHOCYTES 3 % (16-44); MONOCYTES 8 % (0-5)
[2019-11-29 18:59] LABS: ALBUMIN 2.3 GM/DL (3.2-5.2); BILIRUBIN,DIRECT 0.8 MG/DL (0.0-0.2); CHOLESTEROL RISK RATIO 2.846 (<5); TOTAL PROTEIN 7.2 GM/DL (6.4-8.2)
[2019-11-29 19:00] LABS: PLATELET ESTIMATE NORMAL (NORMAL)
[2019-11-29 19:01] LABS: NEUTROPHILS 78 % (28-66)
--- NOTE | 2019-11-29 19:44 | HPEPDOC ---
[facility] Medical History & Physical Date of Admission Nov 29, 2019 Date of Service: Nov 29, 2019 Primary Care Physician: ADAM LECHUGA DO Attending Physician: ERYN VELA MD History and Physical TIME OF SERVICE: 8:10 PM CHIEF COMPLAINT: Fall HISTORY OF PRESENT ILLNESS: The patient has been confused for the last 2-3 days; additional history is obtained from the ER provider, EMS, and the patient's daughter. This is a 79-year-old female that lives that his seniors living [facility] facility by herself. EMS brought her to the hospital after they found her lying on the floor covered in feces. Today, the patient had a fall while trying to get from her recliner to her walker. Apparently the patient has been falling about 2-3 times a day over the last few days and EMS has been called several times to help the patient get back up. The patient is morbidly obese, uses a walker, has chronic back pain and has difficulties walking on her own. The patient attributes to the fall to losing her balance. She denies losing consciousness or hitting her head when she fell. According to the patient's daughter, she has been confused for the last few days. Currently, the patient's only complaint is of her "leg swelling up." Per discussion with ER provider the patient was noted to be coughing and complaining of back pain; she was diagnosed with sepsis secondary to right upper lobe pneumonia & UTI and started on IVF, ceftriaxone and azithromycin. CT of the back showed multilevel spinal stenosis; MRI of the back was ordered, but the patient declined. REVIEW OF SYSTEMS: 12 point review of systems negative except as listed in HPI PAST MEDICAL/ SURGICAL HISTORY: Chronic hypertension. Chronic diastolic CHF CKD CARLA/noncompliant with CPAP/uses nocturnal O2. Zoj-vspuuht-ppqgyjsdl diabetes, neuropathy Chronic back pain. Morbid obesity Bilateral lower extremity lymphedema. / PVD Depression. Dyslipidemia. Gout History of uterine cancer/ Status post total abdominal hysterectomy and bilateral oophorectomies Status post appendectomy. Status post tonsillectomy. This post right elbow surgery with ORIF SOCIAL HISTORY: She does not smoke. She lives at an assisted living facility FAMILY HISTORY: Hypertension CAD Stroke Cancer ALLERGIES: Please see below. HOME MEDICATIONS: Please see below. PHYSICAL EXAMINATION: VITAL SIGNS: Please see below. GEN: well-nourished / well developed/ NAD INTEGUMENT: She has redness of both lower extremity. The right lower extremity i s wrapped in clean and dry Band-Aids HEENT: NCAT / lips acyanotic /mucus membranes dry CVS: RRR/NMRG/ she has bilateral lower extremity extremity edema LUNGS: able to speak full sentences without stopping to take a breath / no coughing / lungs are clear to auscultation bilaterally on room air ABDOMEN: Contour obese /bowel sounds are hypoactive/ the abdomen is soft & not tender with palpation NEURO: CN 2-12 are grossly intact / speech is not dysarthric PSYCH: alert and oriented , not answering all a questions appropriately LABORATORY DATA: See below. IMAGING: CT of the head " IMPRESSION: No CT evidence for acute intracranial abnormality." CT of lumbar spine without contrast " IMPRESSION: 1. No acute fracture or dislocation identified. 2. Spondylosis with probable multilevel spinal stenosis. The discs, neural foramina and spinal canal could be better evaluated by means of MRI as clinically appropriate. 3. Apparent osteopenia. 4. Cholelithiasis." Ultrasound of gallbladder " IMPRESSION: The gallbladder is filled with small gallstones. " Chest x-ray "Impression: 1. Cannot exclude right upper lobe opacity." MICROBIOLOGY: Please see below. ASSESSMENT: Ms. Muir is a 69-year-old with a past medical history of HTN diastolic CHF, CKD, NIDDM, neuropathy, chronic back pain, depression, gout, BLE lymphedema/PVD and gout who will be admitted for management of sepsis secondary to pneumonia; her confusion is likely due to the infection. The cause of the falls is unclear at this time. She may need placement in a [place]. PLAN: 1. Sepsis secondary to right upper lobe pneumonia SIRS criteria include HR >90 / WBC >12 Lactic acid was 2.7 Qsofa score = 1 = not high risk Symptoms c/w pneumonia include cough and confusion. The chest x-ray, UA and US of the gall bladder were reviewed CURB 65 score to determine if pt should be admitted = 3 points = Severe risk group: 14.0% 30-day mortality. Consider inpatient treatment with possible intensive care admission DRIP Score to predict risk of drug resistant CAP and need for extended spectrum abx = 5 points = High risk. Scores ?4 were associated with higher risk of drug- resistant pneumonia. Extended-spectrum antibiotics likely necessary. Plan: admit to PCU / telemetry / continuous pulse ox & supplemental O2 / Sepsis protocol w repeat lactic acid / ceftriaxone, azithromycin and vancomycin/ switch to lactate ringers /f/u blood cx, sputum Cx, MRSA, strep pneumo, legionella / Acetaminophen PRN for fever / target MAP 65 to 70 / f/u Is and Os with target UOP of at least 0.5 ml/kg/H / target serum glucose 140-180 while acutely ill / she can follow-up with her PCP for influenza, prevnar and pneumococcal vaccines if not already given 2. Encephalopathy Likely metabolic due to infection. Can't definitively rule out subacute CVA. Plan: Frequent neuro checks/if her mental status does not improve, the daytime team may consider MRI of the brain and carotid ultrasound 3. Falls/unsteady gait The cause of her frequent falls is unclear at this time CT of the head was negative for acute stroke CT of the lumbar spine showed multilevel DJD. She declined MRI of the spine. Plan: Orthostats/fall precautions/PT eval/social work consult for placement / hold simvastatin as this can cause myalgias and weakness, especially in the elderly 4. Right lower extremity ulcer. The patient refused a referral for wound care in the past Plan: Wound care / she is on antibiotics 5. Acute on chronic back pain. Likely due to spinal stenosis. Recommendations for MRI were made, but the patient declined. Plan: Lidocaine patches for pain / the daytime team may follow-up with the patient to discuss MRI of the lumbar spine in the morning 6. Hypernatremia, likely due to dehydration. POC sodium was 153 She received IV fluids Plan: c/w IVF / Follow-up repeat BMP tonight. 7. Hypokalemia. POC potassium was 3.1 Plan: Replete potassium and follow-up magnesium 8. Osteopenia. Plan: She can follow-up with her PCP for workup for osteoporosis on an outpatient basis 9. Asymptomatic UTI She did not complain symptoms c/w a UTI (abdominal pain & urinary symptoms) but she did have worsening of her back pain. UA was reviewed Plan: monitor for symptoms / UCx pending 10. NIDDM / neuropathy Plan: diabetic diet / f/u accuchecks & A1C / hypoglycemia protocol / sliding scale insulin / hold glipizide while acutely ill/ continue gabapentin 11. Chronic hypertension / Chronic diastolic CHF Plan: Resume Lasix and metoprolol 12. CKD Her renal function as a baseline Plan: Follow-up BMP / avoid nephrotoxins 13. CARLA Plan: nocturnal O2. 14. Bilateral lower extremity lymphedema. / PVD Plan: Elevate legs/continued Lasix/consult PT for lymphedema wraps 15. Depression Plan: Continue with fluoxetine 16. Gout Plan: Continue the allopurinol 17. Morbid obesity Her BMI is 45.6 This complicates care. She'll likely need to person assist for transfers and/or a Prince lift. She has coexisting diabetes and CARLA Plan: She'll follow-up with her PCP for dietitian consult DVT PROPHYLAXIS: Heparin DISPOSITION: Possibly placement in [place] after more than 2 midnight stay Vital Signs Vital Signs Date Time Temp Pulse Resp B/P (MAP) Pulse Ox O2 Delivery O2 Flow Rate FiO2 11/29/19 19:16 107 18 11/29/19 19:02 142/65 (90) 11/29/19 17:15 99.0 95 Laboratory Data Labs 24H Laboratory Tests 2 11/29/19 18:21: Monocytes # (Auto) , Nucleated Red Blood Cells % (auto) 0.0, Neutrophils 78H, Band Neutrophils 4, Lymphocytes (Manual) 3L, Monocytes (Manual) 8H, Atypical Lymphocytes 7H, Macrocytosis 1+, Platelet Estimate NORMAL, Prothrombin Time 18.8H, Prothromb Time International Ratio 1.60, Activated Partial Thromboplast Time 30.2, Urine Color AUGUST, Urine Appearance HAZY, Urine pH 5.0, Urine Specific [place] 1.015, Urine Protein 2+H, Urine Glucose (UA) NEGATIVE, Urine Ketones NEGATIVE, Urine Blood 2+H, Urine Nitrite NEGATIVE, Urine Bilirubin NEGATIVE, Urine Urobilinogen 0.2, Urine Leukocyte Esterase TRACEH, Urine WBC (Auto) 9H, Urine RBC (Auto) 11H, Urine Hyaline Casts (Auto) 27, Urine Bacteria (Auto) 1+H, Urine Squamous Epithelial Cells 0, Urine Mucus (Auto) SMALL, Urine Sperm (Auto) , Total Bilirubin 2.0H, Direct Bilirubin 0.8H, Aspartate Amino Transf (AST/SGOT) 94H, Alanine Aminotransferase (ALT/SGPT) 20, Alkaline Phosphatase 135H, ZL-Leh-N-Type Natriuretic Peptide 2660H, Total Protein 7.2, Albumin 2.3L, Albumin/Globulin Ratio 0.47L, Triglycerides Level 120, Total Cholesterol 148, LDL Cholesterol 72, Non-HDL Cholesterol (LDL + VLDL) 96, Total HDL Cholesterol 52, Cholesterol/HDL Ratio 2.846, Lipase 41L 11/29/19 18:22: POC Glucose (Misc Panel) 153H, POC Sodium (Misc Panel) 151H, POC Potassium (Misc Panel) 3.1L, POC Chloride (Misc Panel) 109, POC Total CO2 (Misc Panel) 28.0H, P OC Blood Urea Nitrogen (Misc Panel 26, POC Ionized Calcium (Misc Panel) 4.8, POC Creatinine (Misc Panel) 1.5H, POC Hematocrit (Misc Panel) 41.0, Lactic Acid Level 2.7*H CBC/BMP Laboratory Tests 11/29/19 18:21 Microbiology Microbiology 11/29/19 Blood Culture, Received Pending 11/29/19 Urine Culture, Received Pending 11/29/19 Respiratory Virus Panel (PCR) (RAMO) - Final, Complete 11/29/19 Blood Culture, Received Pending Home Medications Scheduled Allopurinol (Zyloprim) 300 Mg Tab, 300 MG PO DAILY Aspirin (Aspirin EC) 81 Mg Tablet.dr, 81 MG PO DAILY Bupropion Hcl (Bupropion HCl Sr) 150 Mg Tab.sr.12h, 150 MG PO BID Calcitriol (Calcitriol) 0.25 Mcg Capsule, 0.25 MCG PO 2XW MON/FRI Docusate Sodium (Docusate Sodium) 100 Mg Capsule, 200 MG PO DAILY Fluoxetine Hcl (Fluoxetine HCl) 40 Mg Capsule, 40 MG PO DAILY Furosemide (Furosemide) 40 Mg Tablet, 80 MG PO DAILY Gabapentin (Gabapentin) 600 Mg Tablet, 600 MG PO BID Glipizide (Glipizide ER) 5 Mg Tab, 5 MG PO DAILY Magnesium Oxide (Magnesium Oxide) 400 Mg Tab, 400 MG PO 3XW MON, WED, FRI Metoprolol Tartrate (Metoprolol Tartrate) 100 Mg Tablet, 100 MG PO DAILY Niacin (Niacin ER) 1,000 Mg Tab, 1,000 MG PO QHS Nitrofurantoin Monohyd/M-Cryst (Nitrofurantoin [place]-Mcr 100 mg) 100 Mg Capsule, 100 MG PO DAILY Nystatin (Nystatin Powder) 15 Gm Powder, 1 DOSE TOP ASDIRECTED APPLY UNDER BREASTS AND ABDOMINAL FOLDS AFTER SHOWER Simvastatin (Simvastatin) 20 Mg Tablet, 20 MG PO QHS Scheduled PRN Hydrocodone/Acetaminophen (Hydrocodone-Acetamin 5-325 mg) 1 Each Tablet, 1 TAB PO Q6H PRN for PAIN Allergies Coded Allergies: No Known Allergies (Verified Allergy, Unknown, 10/20/19) A-FIB/CHADSVASC A-FIB History Current/History of A-Fib/PAF?: No Current PO Anticoag Therapy: No ERYN VELA MD Nov 29, 2019 19:44
[2019-11-29] MEDS ORDERED: MOM 30ML SUSPENSION UDC PO PRN (19:45)
[2019-11-29] MEDS ORDERED: GLUCOSE 4 GM CHEW TABLET PO PRN (19:45)
[2019-11-29] MEDS ORDERED: NS 1,000 ML IV SCH (19:45)
[2019-11-29] MEDS ORDERED: GLUCAGON FOR INJ 1 MG VIAL (J1610) SC PRN (19:45)
[2019-11-29] MEDS ORDERED: DEXTROSE 50% 50 ML SYRINGE IV PRN (19:45)
[2019-11-29] MEDS ORDERED: MAALOX 30 ML SUSP *UDC PO PRN (19:45)
[2019-11-29] MEDS ORDERED: cefTRIAXone SOD 1 GM in D5W MINI-BAG PLUS 50 ML IV ONE (20:00)
--- NOTE | 2019-11-29 20:24 | ECGEPIP ---
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
--- NOTE | 2019-11-29 20:57 | REPVR ---
PROCEDURE INFORMATION: Exam: US Abdomen Limited, Right Upper Quadrant Exam date and time: 11/29/2019 7:58 PM Age: 69 years old Clinical indication: Abnormal findings; Abnormal lab test; Elevated liver enzymes; Additional info: Elevated labs, stones on CT TECHNIQUE: Imaging protocol: Real-time ultrasound of the abdomen with image documentation. Examination was focused on the right upper quadrant. COMPARISON: RENAL US 01/16/2018 10:34 PM FINDINGS: Liver: Normal appearing liver. Gallbladder: There are echogenic stones filling the gallbladder with strong posterior shadowing. The gallbladder wall measures less than 2 mm. Common bile duct: Common bile duct is normal in size measuring 3 mm. Pancreas: The pancreas is obscured by bowel gas and cannot be evaluated. Right kidney: The right kidney measures 9.6 cm in length by 4 cm in thickness and there is no hydronephrosis. Inferior vena cava: Normal appearing inferior vena cava. IMPRESSION: The gallbladder is filled with small gallstones. Electronically signed by: Serafin Howell On 11/29/2019 20:57:04 PM
[2019-11-29] MEDS ORDERED: POTASSIUM CHLORIDE 10 MEQ SR TABLET PO ONE ×2 (21:00→23:45)
[2019-11-29] MEDS ORDERED: AZITHROMYCIN INJ 500 MG, VIAL MATE ADAPTER 1 EACH in D5W 250 ML IV SCH (21:00)
[2019-11-29 21:56] LABS: ABG BASE EXCESS 2.9 (-2.0-2.0); ABG HCO3 26.6 MEQ/L (22.0-26.0); ABG O2 SATURATION 95.2 % (95.0-99.0); ABG PARTIAL PRESSURE CO2 37.5 mmHg (35.0-45.0); ABG PARTIAL PRESSURE O2 71.9 mmHg (75.0-100.0); ABG TOTAL CO2 27.7 MEQ/L (23.0-31.0); ABG pH (ARTERIAL) 7.468 UNITS (7.350-7.450)
[2019-11-29 22:25] VITALS: BP 118/64
[2019-11-29 22:27] LABS: CALCIUM LEVEL 8.6 MG/DL (8.8-10.2); CREATININE FOR GFR 1.52 MG/DL (0.55-1.30); GLOMERULAR FILTRATION RATE 36.3 (>45); MAGNESIUM LEVEL 1.7 MG/DL (1.8-2.4)
[2019-11-29 22:34] LABS: HEMOGLOBIN A1c 6.4 %
[2019-11-29] MEDS: HumaLOG INSULIN (NovoLOG) PER UNIT SC SCH (23:20)
[2019-11-29] MEDS ORDERED: LR 1,000 ML IV SCH (23:45)
[2019-11-29] MEDS ORDERED: MAGNESIUM OXIDE 400 MG TAB (MAG-OX) PO ONE (23:45)
[2019-11-29] MEDS: HEPARIN SOD (PORCINE) 5000 UNITS/ML VIAL SC SCH (23:54)
[2019-11-29] MEDS: buPROPion **SR TABLET** (ZYBAN) 150MG PO SCH (23:55)
[2019-11-29] MEDS: NIACIN SR (NIASPAN) 500 MG TAB PO SCH (23:55)
[2019-11-29] MEDS: ACETAMINOPHEN TAB 650MG DOSE (2X325MG) PO PRN (23:55)
[2019-11-29] MEDS: GABAPENTIN 300 MG CAP PO SCH (23:55)
[2019-11-30] VITALS (22 sets, daily range): BP systolic 126–138; BP diastolic 56–72; O2SAT 87–98
[2019-11-30] MEDS ORDERED: VANCOMYCIN HCL 1,000 MG, VIAL MATE ADAPTER 1 EACH in D5W 250 ML IV ONE ×3
[2019-11-30] MEDS ORDERED: VANCOMYCIN HCL 750 MG, VIAL MATE ADAPTER 1 EACH in D5W 250 ML IV SCH ×3
--- NOTE | 2019-11-30 00:30 | PHACANCOPD ---
PHARMACY VANCOMYCIN DOSING Pt Demographics Demographics Patient Age:69 , Weight:119.100 , Gender: female Adjusted Body Weight Date: 11/30/19, Adjusted Body Weight: Kg Events Past 24 Hours Events Past 24 Hours: NO: Dialysis, Diuretic Therapy, Change in CrCl, Fever, Elevation in WBC, Pending Diagnostics, Pending Procedures, Other Vancomycin Vancomycin Target Ranges: 15-20 mcg/ml Vancomycin Load Y/N: Yes Load Dose Date Time Vancomycin Load Dose: 2000mg Date: 11-30 Time: 020 Vancomycin Dose Date: 11/30/19. Current Vancomycin Dose: [1000mg q12h] Intermittent Dosing?: No Labs Labs Item Value Date Time White Blood Count 21.6 10^3/uL H 11/29/19 1821 Glomerular Filtration Rate 36.3 L 11/29/19 2148 Creatinine 1.52 MG/DL H 11/29/19 2148 Blood Urea Nitrogen 26 MG/DL H 11/29/19 2148 Vital Signs Label Value Date Time Patient Temperature 100.0 degrees F 11/29/19 2225 Temperature Source Rectal 11/29/19 2225 Micro Microbiology 11/29/19 Blood Culture, Received Pending 11/29/19 Urine Culture, Received Pending 11/29/19 Respiratory Virus Panel (PCR) (RAMO) - Final, Complete 11/29/19 Blood Culture, Received Pending Creatinine Clearance Date:11/30/19. Creatinine Clearance: [~30]. Pending Labs Trough 01-03 @0100 Assessment and Plan Maintaining Current Dose?: Yes Reason for dose change: No Dose Change Pharmacist Note Pharmacist Note Date: 11/30/19. Pharmacist note:Will monitor and make adjustments as needed. IAIN WHELAN PHARMACY Nov 30, 2019 00:30
[2019-11-30] MEDS: LIDOCAINE 5% (LIDODERM) PATCH TD SCH ×2 (01:54→21:00)
[2019-11-30] MEDS ORDERED: VANCOMYCIN HCL 1,000 MG, VIAL MATE ADAPTER 1 EACH in D5W 250 ML IV SCH (02:00)
[2019-11-30] MEDS: HEPARIN SOD (PORCINE) 5000 UNITS/ML VIAL SC SCH ×3 (06:16→21:06)
[2019-11-30 06:23] LABS: HEMATOCRIT 32.8 % (36.0-47.0); MEAN CORPUSCULAR HEMOGLOBIN 33.3 pg (27.0-33.0); MEAN CORPUSCULAR HGB CONC 31.7 g/dl (32.0-36.5); MEAN CORPUSCULAR VOLUME 105.1 fl (80.0-96.0); PLATELET COUNT, AUTOMATED 185 10^3/uL (150-450); RED BLOOD COUNT 3.12 10^6/uL (4.00-5.40); WHITE BLOOD COUNT 15.1 10^3/uL (4.0-10.0)
[2019-11-30 06:24] LABS: HEMOGLOBIN 10.4 g/dl (12.0-15.5)
[2019-11-30 06:33] LABS: CALCIUM LEVEL 8.6 MG/DL (8.8-10.2); CREATININE FOR GFR 1.6 MG/DL (0.55-1.30); GLOMERULAR FILTRATION RATE 34.2 (>45); MAGNESIUM LEVEL 1.5 MG/DL (1.8-2.4); POTASSIUM SERUM 3.2 MEQ/L (3.5-5.1)
[2019-11-30] MEDS ORDERED: POTASSIUM CHLORIDE 10 MEQ SR TABLET PO ONE (07:15)
[2019-11-30] MEDS ORDERED: MAGNESIUM OXIDE 400 MG TAB (MAG-OX) PO ONE (07:15)
[2019-11-30] MEDS ORDERED: MAG SULF 1GM/100ML (MAG RUN) 1 GM in IV 1 EA IV ONE (07:15)
[2019-11-30] MEDS ORDERED: PIPERACILLIN/TAZOBACTAM SOD 2.25 GM in D5W MINI-BAG PLUS 50 ML IV SCH (08:00)
[2019-11-30] MEDS: HumaLOG INSULIN (NovoLOG) PER UNIT SC SCH ×4 (08:06→21:00)
[2019-11-30] MEDS: D5W/0.45% SODIUM CHLORIDE 1,000 ML IV SCH ×2 (08:06→17:45)
[2019-11-30] MEDS: ASPIRIN 81 MG ENTERIC TAB PO SCH (08:09)
[2019-11-30] MEDS: METOPROLOL TARTRATE 100 MG TAB PO SCH (08:09)
[2019-11-30] MEDS: GABAPENTIN 300 MG CAP PO SCH ×2 (08:09→21:07)
[2019-11-30] MEDS: buPROPion **SR TABLET** (ZYBAN) 150MG PO SCH ×2 (08:09→21:07)
[2019-11-30] MEDS: POTASSIUM CHLORIDE 10 MEQ SR TABLET PO SCH ×2 (08:09→10:25)
[2019-11-30] MEDS: DOCUSATE SODIUM 100 MG CAP PO SCH (08:09)
[2019-11-30] MEDS: allopurinoL 300 MG TAB PO SCH (08:10)
[2019-11-30] MEDS: FLUoxetine 20 MG CAP PO SCH (08:10)
[2019-11-30] MEDS: NYSTATIN 100,000 UNITS/GM TOPICAL PWD 15 GM TOP SCH (08:11)
[2019-11-30] MEDS ORDERED: FUROSEMIDE 40 MG TAB PO SCH (09:00)
[2019-11-30] MEDS: **NOTE PATIENT COMMENT** MISC XX SCH (09:00)
[2019-11-30] MEDS: ERYTHROMYCIN OPHTH OINT OU SCH ×3 (10:00→21:07)
--- NOTE | 2019-11-30 10:12 | REP ---
Clinical: Suspected right upper lobe abnormality. Technique: Axial noncontrast images from the thoracic inlet to the upper abdomen with coronal and sagittal re-formations. Findings: Moderate area of consolidation involves the posterior right upper lobe along with patchy similar smaller areas of alveolar infiltrates noted bilaterally with mild reactive adenopathy is consistent with multifocal pneumonia. Underlying chronic interstitial changes and mild bronchiectasis noted. No effusion. No pneumothorax. Mediastinum demonstrates minimal atherosclerotic changes to the thoracic aorta and coronary arteries without aortic aneurysm or cardiomegaly. No pericardial effusion. Musculoskeletal structures are intact. Limited upper abdomen demonstrates normal bilateral adrenal glands and evidence for cholelithiasis. Impression: Multifocal pneumonia with the largest area of consolidation in the right upper lobe. Follow-up to resolution recommended. Electronically Signed by Aakash Richard MD 11/30/2019 10:04 A
--- NOTE | 2019-11-30 11:26 | IPNPDOC ---
Date Seen The patient was seen on 11/30/19. Progress Note SUBJECTIVE: Patient was seen and examined at bedside this morning. This morning she does not appear confused. She is alert and oriented. She does state that she has had chills over the past few days. She admits to shortness of breath and a cough although she states that she has been close to her baseline. She continues to have bilateral lower extremity swelling with chronic venous stasis ulcers. The patient was suppose to follow up with wound care as an outpatient however stated that she does not want to go. She does admit to a "gritty" feeling in her eyes and admits to some discharge. OBJECTIVE PHYSICAL EXAMINATION: VITAL SIGNS: Please see below. GENERAL: Awake, alert, and oriented. Does not appear to be in any acute distress. Lying comfortably in bed. HEENT: Atraumatic normocephalic. Eyes are nonicteric. There is yellow discharge in the eyes bilaterally. Patient has no teeth. Trachea is midline CARDIOVASCULAR: Normal S1, S2. Regular rate and rhythm. No clicks, rubs, or murmurs RESPIRATORY: Decreased breath sounds on the right. No wheezes, rhonchi, or rales. There is symmetric chest expansion. Good respiratory effort ABDOMINAL: Obese. Soft, nondistended. Nontender. No rebound tenderness or guarding. Normoactive bowel sounds throughout EXTREMITIES: Significant bilateral edema with chronic venous stasis ulcers. NEUROLOGICAL: No focal neurological deficits PSYCHOLOGICAL: Mood and affect appears appropriate LABORATORY DATA, IMAGING STUDIES, MICROBIOLOGY: Please see below. DVT prophylaxis ordered?: YES ASSESSMENT AND PLAN: Patient is a 69 year old female who had presented to the [facility] ER after being found confused at home and was subsequently diagnosed with sepsis likely secondary to a bacterial pneumonia PROBLEMS: 1. Sepsis 2/2 Right upper lobe Multifocal pneumonia -Patient presented with sepsis. She has received IV fluids and antibiotics. She has received IV Rocephin, Azithromycin, and Vancomycin. A CT of the chest was obtained this morning which demonstrated a right upper lobe multifocal pneumonia. -Patient received a dose of Zosyn. He has been changed to Rocephin and Azithromycin for community acquired pneumonia coverage. Her white count is trending down today will continue to monitor 2. Altered Mental Status -Patient presented with altered mental status. She is currently alert and oriented. This was likely delirium secondary to sepsis. Will continue to monitor 3. History of Fall -Patient has reportedly had multiple falls at home. She has chronic lower extremity edema. She states that she ambulates with a walker. -Physical therapy and occupational therapy 4. Bilateral Eye conjunctivitis -Patient had complained of bilateral eye itchiness and griddy feeling. On exam there is discharge bilaterally. -Erythromycin strips 5. Bilateral lower extremity edema with chronic venous stasis ulcers -Patient has chronic ulcers. These do not appear to be cellulitic. She currently refuses a wound care referral. -Leg elevation and lasix for edema 6. Hypernatremia -Possibly secondary to dehydration. Patient was on Lactated ringers on admission. Fluids have been changed to D5/0.45 NS. Will monitor sodium for resolution 7. Hypokalemia -Will monitor and replace PRN 8. NIDDM -Sliding scale insulin coverage 9. Chronic HTN/ Chronic diastolic CHF -Patient will continue home medications 10. Depression -Continue Fluoxetine 11. Gout -Continue allopurinol 12. Morbid Obesity with BMI of 48.0 13. DVT prophylaxis -Heparin SQ VS, I&O, 24H, Fishbone Vital Signs/I&O Vital Signs Date Time Temp Pulse Resp B/P (MAP) Pulse Ox O2 Delivery O2 Flow Rate FiO2 11/30/19 08:09 99 135/68 11/30/19 08:00 2.0 11/30/19 08:00 97.8 18 91 Nasal Cannula I&O- Last 24 Hours up to 6 AM 11/30/19 06:00 Intake Total 1690 ml Output Total 0 ml Balance 1690 ml Laboratory Data 24H LABS Laboratory Tests 2 11/29/19 18:21: Monocytes # (Auto) , Nucleated Red Blood Cells % (auto) 0.0, Neutrophils 78H, Band Neutrophils 4, Lymphocytes (Manual) 3L, Monocytes (Manual) 8H, Atypical Lymphocytes 7H, Macrocytosis 1+, Platelet Estimate NORMAL, Prothrombin Time 18.8H, Prothromb Time International Ratio 1.60, Activated Partial Thromboplast Time 30.2, Urine Color AUGUST, Urine Appearance HAZY, Urine pH 5.0, Urine Specific [place] 1.015, Urine Protein 2+H, Urine Glucose (UA) NEGATIVE, Urine Ketones NEGATIVE, Urine Blood 2+H, Urine Nitrite NEGATIVE, Urine Bilirubin NEGATIVE, Urine Urobilinogen 0.2, Urine Leukocyte Esterase TRACEH, Urine WBC (Auto) 9H, Urine RBC (Auto) 11H, Urine Hyaline Casts (Auto) 27, Urine Bacteria (Auto) 1+H, Urine Squamous Epithelial Cells 0, Urine Mucus (Auto) SMALL, Urine Sperm (Auto) , Total Bilirubin 2.0H, Direct Bilirubin 0.8H, Aspartate Amino Transf (AST/SGOT) 94H, Alanine Aminotransferase (ALT/SGPT) 20, Alkaline Phosphatase 135H, LT-Zow-W-Type Natriuretic Peptide 2660H, Total Protein 7.2, Albumin 2.3L, Albumin/Globulin Ratio 0.47L, Triglycerides Level 120, Total Cholesterol 148, LDL Cholesterol 72, Non-HDL Cholesterol (LDL + VLDL) 96, Total HDL Cholesterol 52, Cholesterol/HDL Ratio 2.846, Lipase 41L 11/29/19 18:22: POC Glucose (Misc Panel) 153H, POC Sodium (Misc Panel) 151H, POC Potassium (Misc Panel) 3.1L, POC Chloride (Misc Panel) 109, POC Total CO2 (Misc Panel) 28.0H, POC Blood Urea Nitrogen (Misc Panel 26, POC Ionized Calcium (Misc Panel) 4.8, POC Creatinine (Misc Panel) 1.5H, POC Hematocrit (Misc Panel) 41.0, Lactic Acid Level 2.7*H 11/29/19 21:48: Anion Gap 10, Glomerular Filtration Rate 36.3L, Estimated Mean Plasma Glucose 137H, Hemoglobin A1c 6.4, Calcium Level 8.6L, Magnesium Level 1.7L 11/29/19 21:51: Blood Gas Bicarbonate Standard 27.0H, Arterial Blood pH 7.468H, Arterial Blood Partial Pressure CO2 37.5, Arterial Blood Partial Pressure O2 71.9L, Arterial Blood Total CO2 27.7, Arterial Blood HCO3 26.6H, Arterial Blood Base Excess 2. 9H, Arterial Blood Oxygen Saturation 95.2 11/29/19 22:52: Lactic Acid Followup at 4 Hours 1.8 11/30/19 00:01: Methicillin-Resist S.aureus DNA PCR NOT DETECTED 11/30/19 05:43: Nucleated Red Blood Cells % (auto) 0.0, Anion Gap 6L, Glomerular Filtration Rate 34.2L, Calcium Level 8.6L, Magnesium Level 1.5L CBC/BMP Laboratory Tests 11/29/19 18:21 11/29/19 21:48 1/2/20 05:43 Microbiology Microbiology 11/29/19 Blood Culture, Received Pending 11/29/19 Urine Culture, Received Pending 11/29/19 Respiratory Virus Panel (PCR) (RAMO) - Final, Complete 11/29/19 Blood Culture, Received Pending GME ATTESTATION GME ATTESTATION My faculty preceptor for this patient encounter was physically present during the encounter and was fully available. All aspects of the patient interview, examination, medical decision making process, and medical care plan development were reviewed and approved by the faculty preceptor. The faculty preceptor is aware and concurs with the plan as stated in the body of this note and will attest to such by his/her cosignature. ATTENDING NOTE I, Antonette Samuel, have independently examined this patient and performed my own physical exam, as well as reviewed the documentation and edited where necessary. I have discussed in detail with the resident / student the findings and plan of treatment as documented by the resident / student and edited their note. I agree with their findings and treatment plan and have edited their documentation. I will continue to follow the patient during this hospital stay. MONE BRYANT DO Nov 30, 2019 11:26 ANTONETTE SAMUEL MD Nov 30, 2019 15:45
[2019-11-30] MEDS ORDERED: cefTRIAXone SOD 2 GM in D5W MINI-BAG PLUS 50 ML IV SCH (12:00)
[2019-11-30] MEDS ORDERED: CHLORASEPTIC SPRAY MT PRN (15:00)
[2019-11-30] MEDS ORDERED: LIDOCAINE 1% MDV 20ML VIAL As Ordered ONE (16:38)
[2019-11-30] MEDS ORDERED: SODIUM CHLORIDE 0.9% INJ 10 ML SYR IV PRN (18:15)
[2019-11-30] MEDS ORDERED: cefTRIAXone SOD 1 GM in D5W MINI-BAG PLUS 50 ML IV SCH (20:00)
[2019-11-30] MEDS ORDERED: AZITHROMYCIN INJ 500 MG, VIAL MATE ADAPTER 1 EACH in D5W 250 ML IV SCH (20:00)
[2019-11-30] MEDS: NIACIN SR (NIASPAN) 500 MG TAB PO SCH (21:07)
[2019-11-30] MEDS: ACETAMINOPHEN TAB 650MG DOSE (2X325MG) PO PRN (21:17)
[2019-12-01] VITALS (16 sets, daily range): BP systolic 108–150; BP diastolic 55–76; O2SAT 91–96
[2019-12-01] MEDS: D5W/0.45% SODIUM CHLORIDE 1,000 ML IV SCH (01:01)
[2019-12-01] MEDS ORDERED: SODIUM CHLORIDE 0.9% INJ 10 ML SYR IV SCH (06:00)
[2019-12-01] MEDS: HEPARIN SOD (PORCINE) 5000 UNITS/ML VIAL SC SCH ×3 (06:06→21:48)
[2019-12-01] MEDS ORDERED: MAG SULF 1GM/100ML (MAG RUN) 1 GM in IV 1 EA IV ONE (07:30)
[2019-12-01 08:16] LABS: BASO # 0.1 10^3/uL (0.0-0.2); BASO % 0.5 % (0.0-1.0); EOS % 10.5 % (0.0-3.0); HEMATOCRIT 33.1 % (36.0-47.0); HEMOGLOBIN 10.6 g/dl (12.0-15.5); LYMPH % 20.7 % (24.0-44.0); MEAN CORPUSCULAR HEMOGLOBIN 33.5 pg (27.0-33.0); MEAN CORPUSCULAR VOLUME 104.7 fl (80.0-96.0); MONO % 9.7 % (0.0-5.0); NEUTROPHILS # 5.7 10^3/uL (1.5-8.5); PLATELET COUNT, AUTOMATED 189 10^3/uL (150-450); RED BLOOD COUNT 3.16 10^6/uL (4.00-5.40); WHITE BLOOD COUNT 9.9 10^3/uL (4.0-10.0)
[2019-12-01 08:48] LABS: CALCIUM LEVEL 8.8 MG/DL (8.8-10.2); CREATININE FOR GFR 1.6 MG/DL (0.55-1.30); GLOMERULAR FILTRATION RATE 34.2 (>45); MAGNESIUM LEVEL 1.8 MG/DL (1.8-2.4); POTASSIUM SERUM 4.1 MEQ/L (3.5-5.1)
[2019-12-01] MEDS: DOCUSATE SODIUM 100 MG CAP PO SCH (09:00)
[2019-12-01] MEDS: **NOTE PATIENT COMMENT** MISC XX SCH (09:00)
[2019-12-01] MEDS: HumaLOG INSULIN (NovoLOG) PER UNIT SC SCH ×4 (09:07→21:00)
[2019-12-01] MEDS: FLUoxetine 20 MG CAP PO SCH (09:07)
[2019-12-01] MEDS: CALCITRIOL 0.25 MCG CAP (S0169) PO SCH (09:07)
[2019-12-01] MEDS: ASPIRIN 81 MG ENTERIC TAB PO SCH (09:07)
[2019-12-01] MEDS: GABAPENTIN 300 MG CAP PO SCH ×2 (09:07→21:47)
[2019-12-01] MEDS: allopurinoL 300 MG TAB PO SCH (09:07)
[2019-12-01] MEDS: buPROPion **SR TABLET** (ZYBAN) 150MG PO SCH ×2 (09:07→21:48)
[2019-12-01] MEDS: METOPROLOL TARTRATE 100 MG TAB PO SCH (09:07)
[2019-12-01] MEDS: NYSTATIN 100,000 UNITS/GM TOPICAL PWD 15 GM TOP SCH (09:08)
[2019-12-01] MEDS: ERYTHROMYCIN OPHTH OINT OU SCH ×3 (09:08→21:48)
--- NOTE | 2019-12-01 09:09 | REP ---
PICC line insertion under ultrasound guidance. The procedure was performed by MARSHA Looney, under the direct supervision of Dr. Ang. The risks and benefits of the procedure were explained to the patient and informed consent was obtained both verbally and written. Directly prior to the start of the procedure, a formal timeout was completed in the procedure room. The left brachial vein was localized using ultrasound guidance. The skin was prepped and draped in the sterile fashion. 2 ml 1% lidocaine 10 mg/ml was used as a local anesthetic. Using ultrasound guidance multiple attempts to access the left brachial vein were attempted. Due to the location of the left brachial vein when access was attempted the brachial artery was cannulized. The needle was removed and pressure was held, no active bleeding was visualized. Several more attempts were made at accessing the left brachial vein, but were unsuccessful. The patient tolerated the procedure well and there were no immediate complications. 0.0 minutes of fluoroscopy time was utilized for this procedure. Some fluoroscopic images are performed with last image hold technology. These images require no additional radiation. Reviewed by MARSHA Hunt 12/01/2019 08:13 A Electronically Signed by Piotr Ang MD 12/01/2019 09:01 A
--- NOTE | 2019-12-01 11:33 | IPNPDOC ---
Date Seen The patient was seen on 12/01/19. Progress Note SUBJECTIVE: Patient was seen and examined this morning at bedside. She currently has no new complaints. She had difficulty with vascular access yesterday and was sent for a PICC line placement. There was difficulty getting a patient a PICC line and the procedure was cancelled. Fortunately the patient was able to get access. Today she remains afebrile. She denies fevers or chills. She is working with physical therapy. The patient does have continued irritation in her eyes however she states that it is improving OBJECTIVE PHYSICAL EXAMINATION: VITAL SIGNS: Please see below. GENERAL: Awake, alert, and oriented. Does not appear to be in any acute distress. Lying comfortably in bed. HEENT: Atraumatic normocephalic. Eyes are nonicteric. There is yellow discharge in the eyes bilaterally. Patient has no teeth. Trachea is midline CARDIOVASCULAR: Normal S1, S2. Regular rate and rhythm. No clicks, rubs, or murmurs RESPIRATORY: Decreased breath sounds on the right. No wheezes, rhonchi, or rales. There is symmetric chest expansion. Good respiratory effort ABDOMINAL: Obese. Soft, nondistended. Nontender. No rebound tenderness or guarding. Normoactive bowel sounds throughout EXTREMITIES: Significant bilateral edema with chronic venous stasis ulcers. NEUROLOGICAL: No focal neurological deficits PSYCHOLOGICAL: Mood and affect appears appropriate LABORATORY DATA, IMAGING STUDIES, MICROBIOLOGY: Please see below. DVT prophylaxis ordered?: YES ASSESSMENT AND PLAN: Patient is a 69 year old female who had presented to the [facility] ER after being found confused at home and was subsequently diagnosed with sepsis likely secondary to a bacterial pneumonia PROBLEMS: 1. Sepsis 2/2 Right upper lobe Multifocal pneumonia -Patient presented with sepsis. She has received IV fluids and antibiotics. She has received IV Rocephin, Azithromycin, and Vancomycin. A CT of the chest was obtained which demonstrated a right upper lobe multifocal pneumonia. -WBC is trending down. Antibiotics have been transitioned to oral Cefdinir and Azithromycin. 2. Altered Mental Status -Patient presented with altered mental status. She is currently alert and oriented. This was likely delirium secondary to sepsis. Will continue to monitor 3. History of Fall -Patient has reportedly had multiple falls at home. She has chronic lower extremity edema. She states that she ambulates with a walker. -Physical therapy and occupational therapy 4. Bilateral Eye conjunctivitis -Patient had complained of bilateral eye itchiness and griddy feeling. On exam there is discharge bilaterally. -Erythromycin strips -Likely viral conjunctivitis 5. Bilateral lower extremity edema with chronic venous stasis ulcers -Patient has chronic ulcers. These do not appear to be cellulitic. She currently refuses a wound care referral. -Leg elevation and lasix for edema 6. Hypernatremia -Possibly secondary to dehydration. Patient was on Lactated ringers on admission. Fluids have been changed to D5/0.45 NS. Sodium is improving 7. Hypokalemia -Will monitor and replace PRN 8. NIDDM -Sliding scale insulin coverage 9. Chronic HTN/ Chronic diastolic CHF -Patient will continue home medications 10. Depression -Continue Fluoxetine 11. Gout -Continue allopurinol 12. Morbid Obesity with BMI of 48.0 13. DVT prophylaxis -Heparin SQ DISPOSITION: Likely discharge in 24-48 hours pending PT clearance [facility] Vital Signs Date Time Temp Pulse Resp B/P (MAP) Pulse Ox O2 Delivery O2 Flow Rate FiO2 12/01/19 09:07 84 133/58 12/01/19 09:00 93 Nasal Cannula 1.0 12/01/19 08:00 97.8 20 I&O- Last 24 Hours up to 6 AM 12/01/19 06:00 Intake Total 3160 ml Output Total 0 ml Balance 3160 ml Laboratory Data 24H LABS Laboratory Tests 2 11/30/19 13:38: Bedside Glucose (Misc Panel) 126H 11/30/19 18:09: Bedside Glucose (Misc Panel) 165H 11/30/19 21:16: Bedside Glucose (Misc Panel) 92 12/01/19 07:53: Immature Granulocyte % (Auto) 0.6, Neutrophils (%) (Auto) 58.0, Lymphocytes (%) (Auto) 20.7L, Monocytes (%) (Auto) 9.7H, Eosinophils (%) (Auto) 10.5H, Basophils (%) (Auto) 0.5, Neutrophils # (Auto) 5.7, Lymphocytes # (Auto) 2.0, Monocytes # (Auto) 1.0H, Eosinophils # (Auto) 1.0H, Basophils # (Auto) 0.1, Nucleated Red Blood Cells % (auto) 0.0, Anion Gap 6L, Glomerular Filtration Rate 34.2L, Calcium Level 8.8, Magnesium Level 1.8 CBC/BMP Laboratory Tests 12/01/19 07:53 Microbiology Microbiology 11/29/19 Blood Culture - Preliminary, Resulted No growth after 24 hours . All specim... 11/29/19 Urine Culture - Final, Complete 11/29/19 Respiratory Virus Panel (PCR) ([facility]) - Final, Complete 11/29/19 Blood Culture - Preliminary, Resulted No growth after 24 hours . All specim... GME ATTESTATION GME ATTESTATION My faculty preceptor for this patient encounter was physically present during the encounter and was fully available. All aspects of the patient interview, examination, medical decision making process, and medical care plan development were reviewed and approved by the faculty preceptor. The faculty preceptor is aware and concurs with the plan as stated in the body of this note and will attest to such by his/her cosignature. ATTENDING NOTE I, Antonette Samuel, have independently examined this patient and performed my own physical exam, as well as reviewed the documentation and edited where necessary. I have discussed in detail with the resident / student the findings and plan of treatment as documented by the resident / student and edited their note. I agree with their findings and treatment plan and have edited their documentation. I will continue to follow the patient during this hospital stay. MONE BRYANT DO Dec 01, 2019 11:33 ANTONETTE SAMUEL MD Dec 01, 2019 16:41
[2019-12-01] MEDS: CEFDINIR 300 MG CAP (OMNICEF) PO SCH ×2 (13:11→21:47)
[2019-12-01] MEDS: AZITHROMYCIN 250 MG TAB PO SCH (13:11)
[2019-12-01] MEDS: LIDOCAINE 5% (LIDODERM) PATCH TD SCH (21:00)
[2019-12-01] MEDS: NIACIN SR (NIASPAN) 500 MG TAB PO SCH (21:47)
[2019-12-02] VITALS (7 sets, daily range): BP systolic 133–158; BP diastolic 67–86; O2SAT 99
[2019-12-02] MEDS: HEPARIN SOD (PORCINE) 5000 UNITS/ML VIAL SC SCH ×3 (05:25→21:09)
[2019-12-02 06:37] LABS: HEMATOCRIT 34.1 % (36.0-47.0); HEMOGLOBIN 10.8 g/dl (12.0-15.5); MEAN CORPUSCULAR HEMOGLOBIN 32.8 pg (27.0-33.0); MEAN CORPUSCULAR HGB CONC 31.7 g/dl (32.0-36.5); MEAN CORPUSCULAR VOLUME 103.6 fl (80.0-96.0); PLATELET COUNT, AUTOMATED 219 10^3/uL (150-450); RED BLOOD COUNT 3.29 10^6/uL (4.00-5.40); WHITE BLOOD COUNT 8.6 10^3/uL (4.0-10.0)
[2019-12-02 07:03] LABS: CALCIUM LEVEL 9.3 MG/DL (8.8-10.2); CREATININE FOR GFR 1.4 MG/DL (0.55-1.30); GLOMERULAR FILTRATION RATE 39.9 (>45); POTASSIUM SERUM 3.6 MEQ/L (3.5-5.1)
[2019-12-02] MEDS: HumaLOG INSULIN (NovoLOG) PER UNIT SC SCH ×4 (07:30→21:00)
[2019-12-02] MEDS: DOCUSATE SODIUM 100 MG CAP PO SCH ×2 (09:00→09:45)
[2019-12-02] MEDS: **NOTE PATIENT COMMENT** MISC XX SCH (09:00)
[2019-12-02] MEDS: FLUoxetine 20 MG CAP PO SCH (09:45)
[2019-12-02] MEDS: buPROPion **SR TABLET** (ZYBAN) 150MG PO SCH ×2 (09:45→21:11)
[2019-12-02] MEDS: GABAPENTIN 300 MG CAP PO SCH ×2 (09:45→21:10)
[2019-12-02] MEDS: AZITHROMYCIN 250 MG TAB PO SCH (09:45)
[2019-12-02] MEDS: ASPIRIN 81 MG ENTERIC TAB PO SCH (09:45)
[2019-12-02] MEDS: allopurinoL 300 MG TAB PO SCH (09:45)
[2019-12-02] MEDS: METOPROLOL TARTRATE 100 MG TAB PO SCH (09:46)
[2019-12-02] MEDS: NYSTATIN 100,000 UNITS/GM TOPICAL PWD 15 GM TOP SCH (09:47)
[2019-12-02] MEDS: ERYTHROMYCIN OPHTH OINT OU SCH ×3 (09:47→21:12)
[2019-12-02] MEDS: CEFDINIR 300 MG CAP (OMNICEF) PO SCH ×2 (10:00→21:09)
--- NOTE | 2019-12-02 10:18 | IPNPDOC ---
Date Seen The patient was seen on 12/02/19. Progress Note SUBJECTIVE: Patient was seen and examined this morning. She currently has no complaints. Last night the patient was walking to the bathroom and got unbalanced on her feet and was guided down to the floor by the nursing staff. There was no reported head injury to the patient. Additionally, the patient was noted to be somewhat confused which she has had intermittently. Today the patient states she feels well although tired. OBJECTIVE PHYSICAL EXAMINATION: VITAL SIGNS: Please see below. GENERAL: Awake, alert, and oriented. Does not appear to be in any acute distress. Lying comfortably in bed sleeping HEENT: Atraumatic normocephalic. Eyes are nonicteric. There is no longer yellow discharge in her eyes. Patient has no teeth. Trachea is midline CARDIOVASCULAR: Normal S1, S2. Regular rate and rhythm. No clicks, rubs, or murmurs RESPIRATORY: Decreased breath sounds on the right. No wheezes, rhonchi, or rales. There is symmetric chest expansion. Good respiratory effort ABDOMINAL: Obese. Soft, nondistended. Nontender. No rebound tenderness or guarding. Normoactive bowel sounds throughout EXTREMITIES: Significant bilateral edema with chronic venous stasis ulcers. NEUROLOGICAL: No focal neurological deficits PSYCHOLOGICAL: Mood and affect appears appropriate LABORATORY DATA, IMAGING STUDIES, MICROBIOLOGY: Please see below. DVT prophylaxis ordered?: YES ASSESSMENT AND PLAN: Patient is a 69 year old female who had presented to the [facility] ER after being found confused at home and was subsequently diagnosed with sepsis likely secondary to a bacterial pneumonia PROBLEMS: 1. Sepsis 2/2 Right upper lobe Multifocal pneumonia -Patient presented with sepsis. She has received IV fluids and antibiotics. She has received IV Rocephin, Azithromycin, and Vancomycin. A CT of the chest was obtained which demonstrated a right upper lobe multifocal pneumonia. -WBC is trending down. -Continue oral Cefdinir and Azithromycin. 2. s/p Altered Mental Status -Patient presented with altered mental status. She is currently alert and oriented. This was likely delirium secondary to sepsis. Will continue to monitor 3. History of Fall -Patient has reportedly had multiple falls at home. She has chronic lower extremity edema. She states that she ambulates with a walker. -Physical therapy and occupational therapy 4. Bilateral Eye conjunctivitis -Patient had complained of bilateral eye itchiness and griddy feeling. On exam there is discharge bilaterally. -Erythromycin strips -Likely viral conjunctivitis 5. Bilateral lower extremity edema with chronic venous stasis ulcers -Patient has chronic ulcers. These do not appear to be cellulitic. She currently refuses a wound care referral. -Leg elevation and lasix for edema 6. Hypernatremia -Possibly secondary to dehydration. Patient was on Lactated ringers on admission. Fluids have been changed to D5/0.45 NS. Sodium is improving 7. Hypokalemia -Will monitor and replace PRN 8. NIDDM -Sliding scale insulin coverage 9. Chronic HTN/ Chronic diastolic CHF -Patient will continue home medications 10. Depression -Continue Fluoxetine 11. Gout -Continue allopurinol 12. Morbid Obesity with BMI of 48.0 13. DVT prophylaxis -Heparin SQ DISPOSITION: ALC status. Continue with PT/OT. Subacute rehab VS, I&O, 24H, Fishbone Vital Signs/I&O Vital Signs Date Time Temp Pulse Resp B/P (MAP) Pulse Ox O2 Delivery O2 Flow Rate FiO2 12/02/19 09:46 72 153/86 12/02/19 06:00 99.2 18 95 Room Air 12/02/19 01:30 2.0 I&O- Last 24 Hours up to 6 AM 12/02/19 05:59 Intake Total 200 ml Output Total 1 ml Balance 199 ml Laboratory Data 24H LABS Laboratory Tests 2 12/01/19 12:38: Bedside Glucose (Misc Panel) 88 12/01/19 17:28: Bedside Glucose (Misc Panel) 135H 12/01/19 21:13: Bedside Glucose (Misc Panel) 134H 12/02/19 06:21: Nucleated Red Blood Cells % (auto) 0.0, Anion Gap 8, Glomerular Filtration Rate 39.9L, Calcium Level 9.3 CBC/BMP Laboratory Tests 12/02/19 06:21 Microbiology Microbiology 11/29/19 Blood Culture - Preliminary, Resulted No Growth after 48 hours. All Specime... 11/29/19 Urine Culture - Final, Complete 11/29/19 Respiratory Virus Panel (PCR) ([facility]) - Final, Complete 11/29/19 Blood Culture - Preliminary, Resulted No Growth after 48 hours. All Specime... GME ATTESTATION GME ATTESTATION My faculty preceptor for this patient encounter was physically present during the encounter and was fully available. All aspects of the patient interview, examination, medical decision making process, and medical care plan development were reviewed and approved by the faculty preceptor. The faculty preceptor is aware and concurs with the plan as stated in the body of this note and will attest to such by his/her cosignature. ATTENDING NOTE I, Antonette Samuel, have independently examined this patient and performed my own physical exam, as well as reviewed the documentation and edited where necessary. I have discussed in detail with the resident / student the findings and plan of treatment as documented by the resident / student and edited their note. I agree with their findings and treatment plan and have edited their documentation. I will continue to follow the patient during this hospital stay. MONE BRYANT DO Dec 02, 2019 10:18 ANTONETTE SAMUEL MD Dec 02, 2019 13:26
[2019-12-02] MEDS: LIDOCAINE 5% (LIDODERM) PATCH TD SCH (21:10)
[2019-12-02] MEDS: NIACIN SR (NIASPAN) 500 MG TAB PO SCH (21:11)
[2019-12-03 02:00] VITALS: BP 141/73
[2019-12-03 05:57] LABS: HEMATOCRIT 31.7 % (36.0-47.0); HEMOGLOBIN 9.8 g/dl (12.0-15.5); MEAN CORPUSCULAR HEMOGLOBIN 32.6 pg (27.0-33.0); MEAN CORPUSCULAR HGB CONC 30.9 g/dl (32.0-36.5); MEAN CORPUSCULAR VOLUME 105.3 fl (80.0-96.0); PLATELET COUNT, AUTOMATED 212 10^3/uL (150-450); RED BLOOD COUNT 3.01 10^6/uL (4.00-5.40)
[2019-12-03 06:00] VITALS: BP 120/58
[2019-12-03 06:22] LABS: CALCIUM LEVEL 8.9 MG/DL (8.8-10.2); CREATININE FOR GFR 1.29 MG/DL (0.55-1.30); GLOMERULAR FILTRATION RATE 43.9 (>45); POTASSIUM SERUM 3.6 MEQ/L (3.5-5.1)
[2019-12-03] MEDS: HEPARIN SOD (PORCINE) 5000 UNITS/ML VIAL SC SCH ×3 (06:26→21:48)
[2019-12-03] MEDS: DOCUSATE SODIUM 100 MG CAP PO SCH (09:00)
[2019-12-03] MEDS: **NOTE PATIENT COMMENT** MISC XX SCH (09:00)
[2019-12-03] MEDS: FLUoxetine 20 MG CAP PO SCH (09:59)
[2019-12-03] MEDS: ASPIRIN 81 MG ENTERIC TAB PO SCH (10:00)
[2019-12-03] MEDS: allopurinoL 300 MG TAB PO SCH (10:00)
[2019-12-03] MEDS: GABAPENTIN 300 MG CAP PO SCH ×2 (10:00→20:46)
[2019-12-03] MEDS: buPROPion **SR TABLET** (ZYBAN) 150MG PO SCH ×2 (10:00→20:46)
[2019-12-03] MEDS: METOPROLOL TARTRATE 100 MG TAB PO SCH (10:01)
[2019-12-03] MEDS: AZITHROMYCIN 250 MG TAB PO SCH (10:01)
[2019-12-03] MEDS: HumaLOG INSULIN (NovoLOG) PER UNIT SC SCH ×4 (10:02→21:00)
[2019-12-03] MEDS: ERYTHROMYCIN OPHTH OINT OU SCH ×3 (10:03→20:46)
[2019-12-03] MEDS: NYSTATIN 100,000 UNITS/GM TOPICAL PWD 15 GM TOP SCH (10:04)
[2019-12-03] MEDS: CEFDINIR 300 MG CAP (OMNICEF) PO SCH ×2 (10:05→20:45)
[2019-12-03 14:00] VITALS: BP 152/75
[2019-12-03] MEDS: LIDOCAINE 5% (LIDODERM) PATCH TD SCH (20:45)
[2019-12-03] MEDS: NIACIN SR (NIASPAN) 500 MG TAB PO SCH (20:46)
[2019-12-03 22:00] VITALS: BP 141/69
[2019-12-04] VITALS (7 sets, daily range): BP systolic 119–131; BP diastolic 56–94
[2019-12-04 00:07] LABS: BODY FLUID CULTURE Not indicated. (.); LEGIONELLA ANTIGEN URINE Negative (Negative); ORGANISM ID Not indicated. (.); SPECIMEN SOURCE Urine (.); URINE STREP PNEUMONIAE ANTIGEN Negative (Negative)
[2019-12-04] MEDS: HEPARIN SOD (PORCINE) 5000 UNITS/ML VIAL SC SCH ×3 (06:08→21:28)
[2019-12-04 06:55] LABS: HEMOGLOBIN 9.7 g/dl (12.0-15.5); MEAN CORPUSCULAR HGB CONC 31.3 g/dl (32.0-36.5); MEAN CORPUSCULAR VOLUME 105.4 fl (80.0-96.0); PLATELET COUNT, AUTOMATED 235 10^3/uL (150-450); RED BLOOD COUNT 2.94 10^6/uL (4.00-5.40)
[2019-12-04 07:13] LABS: CREATININE FOR GFR 1.36 MG/DL (0.55-1.30); GLOMERULAR FILTRATION RATE 41.3 (>45); POTASSIUM SERUM 3.7 MEQ/L (3.5-5.1)
[2019-12-04] MEDS: HumaLOG INSULIN (NovoLOG) PER UNIT SC SCH ×4 (07:30→21:00)
[2019-12-04] MEDS: DOCUSATE SODIUM 100 MG CAP PO SCH (09:00)
[2019-12-04] MEDS: FLUoxetine 20 MG CAP PO SCH (10:57)
[2019-12-04] MEDS: ASPIRIN 81 MG ENTERIC TAB PO SCH (10:57)
[2019-12-04] MEDS: buPROPion **SR TABLET** (ZYBAN) 150MG PO SCH ×2 (10:58→21:27)
[2019-12-04] MEDS: METOPROLOL TARTRATE 100 MG TAB PO SCH (10:58)
[2019-12-04] MEDS: CEFDINIR 300 MG CAP (OMNICEF) PO SCH ×2 (10:58→21:28)
[2019-12-04] MEDS: AZITHROMYCIN 250 MG TAB PO SCH (10:58)
[2019-12-04] MEDS: GABAPENTIN 300 MG CAP PO SCH ×2 (10:58→21:29)
[2019-12-04] MEDS: CALCITRIOL 0.25 MCG CAP (S0169) PO SCH (10:58)
[2019-12-04] MEDS: NYSTATIN 100,000 UNITS/GM TOPICAL PWD 15 GM TOP SCH (10:59)
[2019-12-04] MEDS: allopurinoL 300 MG TAB PO SCH (10:59)
[2019-12-04] MEDS: ERYTHROMYCIN OPHTH OINT OU SCH ×3 (11:00→21:00)
[2019-12-04] MEDS: **NOTE PATIENT COMMENT** MISC XX SCH (11:03)
[2019-12-04] MEDS: LIDOCAINE 5% (LIDODERM) PATCH TD SCH (21:00)
[2019-12-04] MEDS: NIACIN SR (NIASPAN) 500 MG TAB PO SCH (21:28)
[2019-12-05 02:27] VITALS: O2SAT 97
[2019-12-05] MEDS: HEPARIN SOD (PORCINE) 5000 UNITS/ML VIAL SC SCH (05:19)
[2019-12-05 06:00] VITALS: BP 150/68
[2019-12-05 06:18] LABS: HEMATOCRIT 33.7 % (36.0-47.0); HEMOGLOBIN 10.6 g/dl (12.0-15.5); MEAN CORPUSCULAR HEMOGLOBIN 33.1 pg (27.0-33.0); MEAN CORPUSCULAR HGB CONC 31.5 g/dl (32.0-36.5); MEAN CORPUSCULAR VOLUME 105.3 fl (80.0-96.0); PLATELET COUNT, AUTOMATED 265 10^3/uL (150-450); WHITE BLOOD COUNT 5.4 10^3/uL (4.0-10.0)
[2019-12-05 06:47] LABS: CALCIUM LEVEL 9.5 MG/DL (8.8-10.2); CREATININE FOR GFR 1.29 MG/DL (0.55-1.30); GLOMERULAR FILTRATION RATE 43.9 (>45); POTASSIUM SERUM 3.9 MEQ/L (3.5-5.1)
[2019-12-05] MEDS: HumaLOG INSULIN (NovoLOG) PER UNIT SC SCH (07:30)
[2019-12-05] MEDS: **NOTE PATIENT COMMENT** MISC XX SCH (09:00)
[2019-12-05] MEDS: DOCUSATE SODIUM 100 MG CAP PO SCH (09:00)
[2019-12-05] MEDS ORDERED: SANTYL OINT 30GM TOP SCH (09:00)
[2019-12-05 09:58] VITALS: BP 119/61
[2019-12-05] MEDS: ERYTHROMYCIN OPHTH OINT OU SCH (10:01)
[2019-12-05] MEDS: FLUoxetine 20 MG CAP PO SCH (10:01)
[2019-12-05] MEDS: buPROPion **SR TABLET** (ZYBAN) 150MG PO SCH (10:01)
[2019-12-05] MEDS: AZITHROMYCIN 250 MG TAB PO SCH (10:01)
[2019-12-05 10:02] VITALS: BP 119/61
[2019-12-05] MEDS: allopurinoL 300 MG TAB PO SCH (10:02)
[2019-12-05] MEDS: METOPROLOL TARTRATE 100 MG TAB PO SCH (10:02)
[2019-12-05] MEDS: GABAPENTIN 300 MG CAP PO SCH (10:02)
[2019-12-05] MEDS: ASPIRIN 81 MG ENTERIC TAB PO SCH (10:02)
[2019-12-05] MEDS: CEFDINIR 300 MG CAP (OMNICEF) PO SCH (10:02)
[2019-12-05] MEDS: NYSTATIN 100,000 UNITS/GM TOPICAL PWD 15 GM TOP SCH (10:03)
[2019-12-05] MEDS ORDERED: AZIT-12 PO (10:15)
[2019-12-05] MEDS ORDERED: CEFD300CAP PO (10:15)
--- NOTE | 2019-12-05 10:58 | DS.PDOC ---
Discharge Summary General Date of Admission Nov 29, 2019 at 19:59 Date of Discharge 12/05/2019 Attending Physician: BRANDON MCGOWAN MD Discharge Summary PROCEDURES PERFORMED DURING STAY: Midline insertion ADMITTING DIAGNOSES: 1. Sepsis 2/2 Right Upper Lobe Pneumonia 2. Metabolic Encephalopathy 2/2 Sepsis 3. Hypernatremia DISCHARGE DIAGNOSES: 1. Sepsis 2/2 Right Upper Lobe Multifocal Pneumonia 2. Bilateral Lower Extremity Edema with Chronic Venous Stasis Ulcers COMPLICATIONS/CHIEF COMPLAINT: Ams;Pneumonia;Sepsis;Ulcer R Lower Leg;Uti. HISTORY OF PRESENT ILLNESS: Patient is a 69 year old female who presented to the [facility] ER after being found confused by her daughter. The patient has apparently been found lying on the floor covered in feces. The patient has a history of multiple falls. The patients daughter stated that the patient had been confused got the past few days. She had also complained of worsening leg swelling. At the time the patient complained of coughing and back pain. In the ER the patient was vitally stable. She has received CT imaging of her lumbar spine and head due to her fall which were negative for any acute disease. The patient received a chest x-ray which demonstrated a right upper lobe infiltrate. The patient was given IVF and started on antibiotics. The patient was subsequently admitted to hospitalist service HOSPITAL COURSE: On admission the patient improved clinically. Her metabolic encephalopathy resolved with treatment of her pneumonia. The patient received CT imaging of her chest which did demonstrate a multifocal pneumonia. The patient continued to improve. She had difficulty with IV access and was sent for a Midline insertion however, there was difficulty inserting a midline. Peripheral IV access was obtained. The patient was eventually transitioned to PO antibiotics. She was seen by physical therapy with recommendations for further rehab outpatient. Additionally, given the patients multiple falls the patient was discharged to [facility]. Patient is planned to continue her Cefdinir and Azithromycin for 3 more days to completes treatment for her Community Acquired Pneumonia DISCHARGE MEDICATIONS: Please see below. ALLERGIES: Please see below. PHYSICAL EXAMINATION ON DISCHARGE: VITAL SIGNS: Please see below. GENERAL: Awake, alert, and oriented. Appears in no acute distress. Lying comfortably in bed. HEENT: Atraumatic, Normocephalic. Eyes are nonicteric. Trachea is midline. Nasal Cannula in place NECK: No palpable cervical, axillary, or supraclavicular lymphadenopathy CARDIOVASCULAR EXAMINATION: Normal S1, S2. Regular rate and rhythm. No clicks rubs or murmurs RESPIRATORY EXAMINATION: Decreased breath sounds. Fine crackles in the bases. No wheezes, rhonchi, or rales ABDOMINAL EXAMINATION: Obese. Soft, nondistended. Nontender. No rebound tenderness or guarding. Normoactive bowel sounds EXTREMITIES: 3-4 + pitting edema in bilateral lower extremities with a right leg venous stasis ulcer. Full and equal pulses in bilateral upper and lower extremities NEUROLOGICAL EXAMINATION: No focal neurological deficits PSYCHIATRIC EXAMINATION: Mood and affect appear appropriate LABORATORY DATA: Please see below. IMAGING: PROCEDURE INFORMATION: Exam: CT Lumbar Spine Without Contrast Exam date and time: 11/29/2019 5:57 PM Age: 69 years old Clinical indication: Low back pain; Additional info: Fall, bruising tenderness TECHNIQUE: Imaging protocol: Computed tomography images of the lumbar spine without contrast. Radiation optimization: All CT scans at this facility use at least one of these dose optimization techniques: automated exposure control; mA and/or kV adjustment per patient size (includes targeted exams where dose is matched to clinical indication); or iterative reconstruction. COMPARISON: CR Spine. Lumbosacral, complete 10/17/2015 4:07 PM FINDINGS: Vertebrae: There is a mild dextroscoliotic curvature. Alignment is otherwise maintained. Vertebral body heights are intact. No acute fracture is identified. Discs/Spinal canal/Neural foramina: L5-S1 disc space is fused. There is multilevel disc space narrowing, facet arthrosis and marginal osteophyte formation with variable narrowing of several neural foramina. There is probably spinal stenosis at T12-L1, L3-4, L4-5 and L5-S1. Other bones/joints: The bones appear osteopenic. Gallbladder and bile ducts: Stones are present in the gallbladder. Vasculature: Atherosclerotic vascular calcifications are noted. Soft tissues: There is no significant paraspinal hematoma. IMPRESSION: 1. No acute fracture or dislocation identified. 2. Spondylosis with probable multilevel spinal stenosis. The discs, neural foramina and spinal canal could be better evaluated by means of MRI as clinically appropriate. 3. Apparent osteopenia. 4. Cholelithiasis. Electronically signed by: Cesar Haynes On 11/29/2019 18:45:08 PM PROCEDURE INFORMATION: Exam: CT Head Without Contrast Exam date and time: 11/29/2019 5:57 PM Age: 69 years old Clinical indication: Pain; Headache; Additional info: Fall with confusion TECHNIQUE: Imaging protocol: Computed tomography of the head without contrast. Radiation optimization: All CT scans at this facility use at least one of these dose optimization techniques: automated exposure control; mA and/or kV adjustment per patient size (includes targeted exams where dose is matched to clinical indication); or iterative reconstruction. COMPARISON: CT Head without contrast 08/31/2018 4:03 PM (report not provided) FINDINGS: Brain: Normal. No hemorrhage. Unremarkable white matter. No mass effect. Ventricles: The ventricles and sulci are stable in configuration. Bones/joints: Unremarkable. No acute fracture. Sinuses: There is again chronic disease of the partially visualized left maxillary sinus. The visualized paranasal sinuses and air cells are otherwise clear. Mastoid air cells: Visualized mastoid air cells are well aerated. Soft tissues: Unremarkable. IMPRESSION: No CT evidence for acute intracranial abnormality. Clinical: Cough Technique: AP and lateral Comparison: 10/20/2019. Findings: Subtle area of opacity in the right upper lung zone cannot be excluded. Mediastinum and cardiac silhouette normal. No further consolidation. No effusion. No pneumothorax. Skeletal structures demonstrate chronic degenerativ e changes and old left shoulder fracture. Impression: 1. Cannot exclude right upper lobe opacity. Electronically Signed by Aakash Richard MD 11/29/2019 06:19 P DD: Aakash Richard MD 11/29/191816 DT: Ashwini 11/29/191818 DS: FRANNY 11/29/19181811/29/191818 PROCEDURE INFORMATION: Exam: US Abdomen Limited, Right Upper Quadrant Exam date and time: 11/29/2019 7:58 PM Age: 69 years old Clinical indication: Abnormal findings; Abnormal lab test; Elevated liver enzymes; Additional info: Elevated labs, stones on CT TECHNIQUE: Imaging protocol: Real-time ultrasound of the abdomen with image documentation. Examination was focused on the right upper quadrant. COMPARISON: RENAL US 01/16/2018 10:34 PM FINDINGS: Liver: Normal appearing liver. Gallbladder: There are echogenic stones filling the gallbladder with strong posterior shadowing. The gallbladder wall measures less than 2 mm. Common bile duct: Common bile duct is normal in size measuring 3 mm. Pancreas: The pancreas is obscured by bowel gas and cannot be evaluated. Right kidney: The right kidney measures 9.6 cm in length by 4 cm in thickness and there is no hydronephrosis. Inferior vena cava: Normal appearing inferior vena cava. IMPRESSION: The gallbladder is filled with small gallstones. Electronically signed by: Serafin Howell On 11/29/2019 20:57:04 PM PICC line insertion under ultrasound guidance. The procedure was performed by MARSHA Looney, under the direct supervision of Dr. Ang. The risks and benefits of the procedure were explained to the patient and informed consent was obtained both verbally and written. Directly prior to the start of the procedure, a formal timeout was completed in the procedure room. The left brachial vein was localized using ultrasound guidance. The skin was prepped and draped in the sterile fashion. 2 ml 1% lidocaine 10 mg/ml was used as a local anesthetic. Using ultrasound guidance multiple attempts to access t he left brachial vein were attempted. Due to the location of the left brachial vein when access was attempted the brachial artery was cannulized. The needle was removed and pressure was held, no active bleeding was visualized. Several more attempts were made at accessing the left brachial vein, but were unsuccessful. The patient tolerated the procedure well and there were no immediate complications. 0.0 minutes of fluoroscopy time was utilized for this procedure. Some fluoroscopic images are performed with last image hold technology. These images require no additional radiation. Reviewed by MARSHA Hunt 12/01/2019 08:13 A Electronically Signed by Piotr Ang MD 12/01/2019 09:01 A DD: MAX HARDY [facility] 12/01/19 [id number] Clinical: Suspected right upper lobe abnormality. Technique: Axial noncontrast images from the thoracic inlet to the upper abdomen with coronal and sagittal re-formations. Findings: Moderate area of consolidation involves the posterior right upper lobe along with patchy similar smaller areas of alveolar infiltrates noted bilaterally with mild reactive adenopathy is consistent with multifocal pneumonia. Underlying chronic interstitial changes and mild bronchiectasis noted. No effusion. No pneumothorax. Mediastinum demonstrates minimal atherosclerotic changes to the thoracic aorta and coronary arteries without aortic aneurysm or cardiomegaly. No pericardial effusion. Musculoskeletal structures are intact. Limited upper abdomen demonstrates normal bilateral adrenal glands and evidence for cholelithiasis. Impression: Multifocal pneumonia with the largest area of consolidation in the right upper lobe. Follow-up to resolution recommended. Electronically Signed by Aakash Richard MD 11/30/2019 10:04 A PROGNOSIS: Fair ACTIVITY: [As tolerated]. DIET: Consistent Carbohydrate DISCHARGE PLAN: Patient is to be discharged to [facility] for continued Rehab. She is to continue Omnicef and Azithromycin for 3 more days to complete treatment for her community acquired pneumonia. Patient is to follow-up with her PCP in 7-10 days. She has been referred to Dr. Land for wound care. She has refused referrals in the past. Patient is to return to the ER if her symptoms return or worsen DISCHARGE CONDITION: [Stable]. TIME SPENT ON DISCHARGE: Greater than 40 minutes. HOSPITALIST ATTENDING NOTE: I have independently interviewed and examined the patient at the bedside, agree with the physical findings and discussed the overall management plan with my resident physician as documented above. Vital Signs/I&Os Vital Signs Date Time Temp Pulse Resp B/P (MAP) Pulse Ox O2 Delivery O2 Flow Rate FiO2 12/05/19 10:02 80 119/61 12/05/19 06:00 98.2 16 100 Nasal Cannula 2.0 I&O- Last 24 Hours up to 6 AM 12/05/19 06:00 Intake Total 660 ml Balance 660 ml Laboratory Data Labs 24H Laboratory Tests 2 12/04/19 11:34: Bedside Glucose (Misc Panel) 125H 12/04/19 16:30: Bedside Glucose (Misc Panel) 136H 12/04/19 21:10: Bedside Glucose (Misc Panel) 121H 12/05/19 05:56: Nucleated Red Blood Cells % (auto) 0.0, Anion Gap 7L, Glomerular Filtration Rate 43.9L, Calcium Level 9.5 CBC/BMP Laboratory Tests 12/05/19 05:56 FSBS Laboratory Tests Test 12/04/19 11:34 12/04/19 16:30 12/04/19 21:10 Range/Units Bedside Glucose (Misc Panel) 125 136 121 80-115 MG/DL Microbiology Microbiology 11/29/19 Blood Culture - Final, Complete NO GROWTH AFTER 5 DAYS 11/29/19 Urine Culture - Final, Complete 11/29/19 Respiratory Virus Panel (PCR) (RAMO) - Final, Complete 11/29/19 Blood Culture - Final, Complete NO GROWTH AFTER 5 DAYS Discharge Medications Scheduled Allopurinol (Zyloprim) 300 Mg Tab, 300 MG PO DAILY, (Reported) Aspirin (Aspirin EC) 81 Mg Tablet.dr, 81 MG PO DAILY, (Reported) Azithromycin (Azithromycin) 250 Mg Tablet, 250 MG PO DAILY Bupropion Hcl (Bupropion HCl Sr) 150 Mg Tab.sr.12h, 150 MG PO BID, (Reported) Calcitriol (Calcitriol) 0.25 Mcg Capsule, 0.25 MCG PO 2XW, (Reported) MON/WED Cefdinir (Cefdinir) 300 Mg Capsule, 300 MG PO BID Docusate Sodium (Docusate Sodium) 100 Mg Capsule, 200 MG PO DAILY, (Reported) Fluoxetine Hcl (Fluoxetine HCl) 40 Mg Capsule, 40 MG PO DAILY, (Reported) Furosemide (Furosemide) 40 Mg Tablet, 80 MG PO DAILY, (Reported) Gabapentin (Gabapentin) 600 Mg Tablet, 600 MG PO BID, (Reported) Glipizide (Glipizide ER) 5 Mg Tab, 5 MG PO DAILY, (Reported) Magnesium Oxide (Magnesium Oxide) 400 Mg Tab, 400 MG PO 3XW, (Reported) MON, WED, WED Metoprolol Tartrate (Metoprolol Tartrate) 100 Mg Tablet, 100 MG PO DAILY, (Repor eric) Niacin (Niacin ER) 1,000 Mg Tab, 1,000 MG PO QHS, (Reported) Simvastatin (Simvastatin) 20 Mg Tablet, 20 MG PO QHS, (Reported) Scheduled PRN Hydrocodone/Acetaminophen (Hydrocodone-Acetamin 5-325 mg) 1 Each Tablet, 1 TAB PO Q6H PRN for PAIN, (Reported) Allergies Coded Allergies: No Known Allergies (Verified Allergy, Unknown, 10/20/19) MONE BRYANT DO Dec 05, 2019 10:58 BRANDON MCGOWAN MD Dec 05, 2019 13:47
== END 2019-12-05 11:32 | DRG 871 ==
LOC: EDSEX 17:01 → EDBD 17:01 → M ED 17:01 → M ED INP 19:59 → ENRESERV 22:01 → M PCU 22:25 → M MSPAV 12-01 14:48
PROVIDERS: ADMIT Internal Medicine; ATTEND General Practice
PROC: B51MZZA Fluoroscopy of Right Upper Extremity Veins, Guidance (ICD-10-PCS; principal; 2019-11-30 16:05)
DX: A41.9 Sepsis, unspecified organism (principal); J18.9 Pneumonia, unspecified organism; N39.0 Urinary tract infection, site not specified; I50.32 Chronic diastolic (congestive) heart failure; I13.0 Hypertensive heart and chronic kidney disease with heart failure and stage 1 through stage 4 chronic kidney disease, or unspecified chronic kidney disease; L97.919 Non-pressure chronic ulcer of unspecified part of right lower leg with unspecified severity; E87.0 Hyperosmolality and hypernatremia; Z68.42 Body mass index [BMI] 45.0-49.9, adult; R41.82 Altered mental status, unspecified; R29.6 Repeated falls; E66.01 Morbid (severe) obesity due to excess calories; N18.9 Chronic kidney disease, unspecified; G47.33 Obstructive sleep apnea (adult) (pediatric); E11.40 Type 2 diabetes mellitus with diabetic neuropathy, unspecified; E11.22 Type 2 diabetes mellitus with diabetic chronic kidney disease; I89.0 Lymphedema, not elsewhere classified; B30.9 Viral conjunctivitis, unspecified; F32.9 Major depressive disorder, single episode, unspecified; E78.5 Hyperlipidemia, unspecified; M10.9 Gout, unspecified; Z85.42 Personal history of malignant neoplasm of other parts of uterus; Z90.710 Acquired absence of both cervix and uterus; Z90.722 Acquired absence of ovaries, bilateral; Z90.49 Acquired absence of other specified parts of digestive tract; E11.622 Type 2 diabetes mellitus with other skin ulcer; E86.0 Dehydration; E87.6 Hypokalemia; M85.80 Other specified disorders of bone density and structure, unspecified site; Z79.82 Long term (current) use of aspirin; Z79.84 Long term (current) use of oral hypoglycemic drugs; Z79.899 Other long term (current) drug therapy; Z53.09 Procedure and treatment not carried out because of other contraindication

== ENCOUNTER → 2019-12-07 | Outpatient (REF) ==
[~2019-12-07] MED LIST changes: +AZIT-12 PO
== END ==
LOC: SKLAB2 08:00
PROVIDERS: ATTEND Internal Medicine
DX: E83.42 Hypomagnesemia (principal); B95.62 Methicillin resistant Staphylococcus aureus infection as the cause of diseases classified elsewhere

== ENCOUNTER → 2019-12-11 | Outpatient (REF) ==
[2019-12-11 08:16] LABS: HEMATOCRIT 30.9 % (36.0-47.0); MEAN CORPUSCULAR HEMOGLOBIN 33.2 pg (27.0-33.0); MEAN CORPUSCULAR HGB CONC 32.4 g/dl (32.0-36.5); MEAN CORPUSCULAR VOLUME 102.7 fl (80.0-96.0); PLATELET COUNT, AUTOMATED 339 10^3/uL (150-450); RED BLOOD COUNT 3.01 10^6/uL (4.00-5.40); WHITE BLOOD COUNT 7.1 10^3/uL (4.0-10.0)
[2019-12-11 08:45] LABS: ALBUMIN 1.9 GM/DL (3.2-5.2); BILIRUBIN,TOTAL 0.3 MG/DL (0.2-1.0); CALCIUM LEVEL 8.7 MG/DL (8.8-10.2); CREATININE FOR GFR 1.49 MG/DL (0.55-1.30); GLOMERULAR FILTRATION RATE 37.2 (>45); POTASSIUM SERUM 3.7 MEQ/L (3.5-5.1); TOTAL PROTEIN 5.4 GM/DL (6.4-8.2)
[2019-12-11 11:39] LABS: PTH INTACT 54.8 PG/ML (18.5-88.0)
== END ==
LOC: SKLAB2 07:30
PROVIDERS: ATTEND Internal Medicine
DX: I10 Essential (primary) hypertension (principal); I25.10 Atherosclerotic heart disease of native coronary artery without angina pectoris; E05.90 Thyrotoxicosis, unspecified without thyrotoxic crisis or storm

== ENCOUNTER → 2019-12-14 | Outpatient (REF) ==
[2019-12-14 09:31] LABS: CALCIUM LEVEL 8.7 MG/DL (8.8-10.2); CREATININE FOR GFR 1.74 MG/DL (0.55-1.30); GLOMERULAR FILTRATION RATE 31.1 (>45); POTASSIUM SERUM 3.6 MEQ/L (3.5-5.1)
== END ==
LOC: SKLAB2 07:00
PROVIDERS: ATTEND Internal Medicine
DX: I10 Essential (primary) hypertension (principal)

== ENCOUNTER → 2019-12-30 | Outpatient (REF) | payer MEDICARE, MEDICAID ==
[~2019-12-30] MED LIST changes: +NITR-67 PO
[2019-12-30 11:15] LABS: BASO % 0.5 % (0.0-1.0); EOS # 1.3 10^3/uL (0.0-0.5); HEMATOCRIT 36.3 % (36.0-47.0); HEMOGLOBIN 11.1 g/dl (12.0-15.5); LYMPH # 1.9 10^3/uL (1.5-5.0); MEAN CORPUSCULAR HEMOGLOBIN 32.2 pg (27.0-33.0); MEAN CORPUSCULAR HGB CONC 30.6 g/dl (32.0-36.5); MEAN CORPUSCULAR VOLUME 105.2 fl (80.0-96.0); MONO # 0.4 10^3/uL (0.0-0.8); MONO % 6.9 % (0.0-5.0); NEUTROPHILS # 2.1 10^3/uL (1.5-8.5); NEUTROPHILS % 36.2 % (36.0-66.0); PLATELET COUNT, AUTOMATED 123 10^3/uL (150-450); RED BLOOD COUNT 3.45 10^6/uL (4.00-5.40); WHITE BLOOD COUNT 5.7 10^3/uL (4.0-10.0)
[2019-12-30 11:21] LABS: ALBUMIN 2.5 GM/DL (3.2-5.2); BILIRUBIN,TOTAL 0.5 MG/DL (0.2-1.0); CALCIUM LEVEL 8.7 MG/DL (8.8-10.2); CHOLESTEROL RISK RATIO 3.39 (<5); CREATININE FOR GFR 1.74 MG/DL (0.55-1.30); FREE T4 0.93 NG/DL (0.76-1.46); GLOMERULAR FILTRATION RATE 31.1 (>45); POTASSIUM SERUM 4.2 MEQ/L (3.5-5.1); THYROID STIMULATING HORMONE 5.13 uIU/ML (0.358-3.740); TOTAL PROTEIN 6.1 GM/DL (6.4-8.2)
[2019-12-30 11:36] LABS: EOS % 22.2 % (0.0-3.0)
[2019-12-30 12:19] LABS: HEMOGLOBIN A1c 6.5 %
== END ==
LOC: M SHH 10:54
PROVIDERS: ATTEND Physician Assistant
DX: E11.22 Type 2 diabetes mellitus with diabetic chronic kidney disease (principal); F33.1 Major depressive disorder, recurrent, moderate; L97.812 Non-pressure chronic ulcer of other part of right lower leg with fat layer exposed

== ENCOUNTER → 2019-12-30 | Outpatient (REF) | payer MEDICARE, MEDICAID ==
[~2019-12-30] MED LIST changes: -NITR-67 PO
== END ==
LOC: M LAB 11:42
PROVIDERS: ATTEND Physician Assistant
DX: E11.22 Type 2 diabetes mellitus with diabetic chronic kidney disease (principal); F33.1 Major depressive disorder, recurrent, moderate; L97.812 Non-pressure chronic ulcer of other part of right lower leg with fat layer exposed

== ENCOUNTER 2020-01-11 20:00 | Inpatient (IN) | payer MEDICARE, MEDICAID ==
[~2020-01-11] VITALS: Ht 152.4 cm; Wt 114.0 kg
[2020-01-11] MEDS ORDERED: VANCOMYCIN HCL 1,000 MG, VIAL MATE ADAPTER 1 EACH in D5W 250 ML IV STA (20:50)
[2020-01-11] MEDS: NIACIN SR (NIASPAN) 500 MG TAB PO SCH (21:00)
[2020-01-11] MEDS ORDERED: NS 500 ML IV ONE (21:00)
[2020-01-11] MEDS: HumaLOG INSULIN (NovoLOG) PER UNIT SC SCH (21:00)
[2020-01-11] MEDS: GABAPENTIN 300 MG CAP PO SCH (21:00)
[2020-01-11] MEDS: buPROPion **SR TABLET** (ZYBAN) 150MG PO SCH (21:00)
[2020-01-11] MEDS ORDERED: ACETAMINOPHEN TAB 650MG DOSE (2X325MG) PO ONE (21:00)
[2020-01-11] MEDS: SIMVASTATIN 20 MG TAB PO SCH (21:00)
[2020-01-11 21:01] LABS: BASO % 0.2 % (0.0-1.0); EOS % 0.3 % (0.0-3.0); HEMATOCRIT 36.2 % (36.0-47.0); HEMOGLOBIN 11.6 g/dl (12.0-15.5); LYMPH # 1.7 10^3/uL (1.5-5.0); LYMPH % 13.2 % (24.0-44.0); MEAN CORPUSCULAR HEMOGLOBIN 32.3 pg (27.0-33.0); MEAN CORPUSCULAR VOLUME 100.8 fl (80.0-96.0); MONO # 0.6 10^3/uL (0.0-0.8); MONO % 4.2 % (0.0-5.0); NEUTROPHILS # 10.6 10^3/uL (1.5-8.5); NEUTROPHILS % 80.4 % (36.0-66.0); PLATELET COUNT, AUTOMATED 187 10^3/uL (150-450); RED BLOOD COUNT 3.59 10^6/uL (4.00-5.40); WHITE BLOOD COUNT 13.2 10^3/uL (4.0-10.0)
[2020-01-11 21:24] LABS: ALBUMIN 2.1 GM/DL (3.2-5.2); BILIRUBIN,DIRECT 0.7 MG/DL (0.0-0.2); BILIRUBIN,TOTAL 1.9 MG/DL (0.2-1.0); CALCIUM LEVEL 8.4 MG/DL (8.8-10.2); CREATININE FOR GFR 1.81 MG/DL (0.55-1.30); GLOMERULAR FILTRATION RATE 29.7 (>45); POTASSIUM SERUM 3.8 MEQ/L (3.5-5.1); THYROID STIMULATING HORMONE 1.09 uIU/ML (0.358-3.740); TOTAL PROTEIN 6.2 GM/DL (6.4-8.2)
[2020-01-11] MEDS ORDERED: NITR-67 PO (22:25)
[2020-01-11] MEDS ORDERED: VANCOMYCIN HCL 1,500 MG in D5W 250 ML IV SCH (23:00)
[2020-01-11] MEDS ORDERED: GLUCAGON FOR INJ 1 MG VIAL (J1610) SC PRN (23:15)
[2020-01-11] MEDS ORDERED: DEXTROSE 50% 50 ML SYRINGE IV PRN (23:15)
[2020-01-11] MEDS ORDERED: DOCUSATE SODIUM 100 MG CAP PO PRN (23:15)
[2020-01-11] MEDS ORDERED: GLUCOSE 4 GM CHEW TABLET PO PRN (23:15)
[2020-01-11] MEDS ORDERED: NORCO, ANEXSIA 5/325MG TABLET (HYDROcodone/ACETAMINOPHEN) PO PRN (23:15)
--- NOTE | 2020-01-11 23:22 | HPEPDOC ---
General Date of Admission 01/11/20 Date of Service: Jan 11, 2020 Chief Complaint The patient is a 69-year-old female admitted with a reason for visit of Leg Pain. Source: Patient Exam Limitations: No limitations Timing/Duration: Day(s) Severity: Moderate Associated Symptoms: Malaise, Weakness History of Present Illness Patient is 69 years old female with past medical history of morbid obesity, type 2 diabetes, chronic lymphedema of lower extremities presented hospital with fever, chills, right leg erythema. Patient stated that for past 2 days she has been having increased swelling of the right leg associated with erythema. Patient has stage I superficial wound of right distal leg. Also patient notes fever of 100.2 associated with chills. In ER patient was found to have leukocytosis of 13.2, fever of 100.6 and hypotension. Patient denied palpitations, chest pain, diarrhea or dysuria Home Medications Scheduled Allopurinol (Zyloprim) 300 Mg Tab, 300 MG PO DAILY, (Reported) Aspirin (Aspirin EC) 81 Mg Tablet.dr, 81 MG PO DAILY, (Reported) Bupropion Hcl (Bupropion HCl Sr) 150 Mg Tab.sr.12h, 150 MG PO BID, (Reported) Calcitriol (Calcitriol) 0.25 Mcg Capsule, 0.25 MCG PO 2XW, (Reported) MON/FRI Fluoxetine Hcl (Fluoxetine HCl) 40 Mg Capsule, 40 MG PO DAILY, (Reported) Furosemide (Furosemide) 40 Mg Tablet, 80 MG PO DAILY, (Reported) Gabapentin (Gabapentin) 600 Mg Tablet, 600 MG PO BID, (Reported) Glipizide (Glipizide ER) 5 Mg Tab, 5 MG PO DAILY, (Reported) Magnesium Oxide (Magnesium Oxide) 400 Mg Tab, 400 MG PO 3XW, (Reported) MON, WED, FRI Metoprolol Tartrate (Metoprolol Tartrate) 100 Mg Tablet, 100 MG PO DAILY, (Repo rted) Niacin (Niacin ER) 1,000 Mg Tab, 1,000 MG PO QHS, (Reported) Nitrofurantoin Macrocrystal (Nitrofurantoin) 100 Mg Capsule, 100 MG PO BID, (Reported) Simvastatin (Simvastatin) 20 Mg Tablet, 20 MG PO QHS, (Reported) Scheduled PRN Docusate Sodium (Docusate Sodium) 100 Mg Capsule, 200 MG PO DAILY PRN for CONSTIPATION, (Reported) Hydrocodone/Acetaminophen (Hydrocodone-Acetamin 5-325 mg) 1 Each Tablet, 1 TAB PO Q6H PRN for PAIN, (Reported) Allergies Coded Allergies: No Known Allergies (Verified Allergy, Unknown, 10/20/19) Past Medical History Medical History 1. Hypertension with hypertensive heart disease. 2. Chronic kidney disease Stage 3. 3. Chronic congestive heart failure due to diastolic dysfunction. 4. Obstructive sleep apnea. Noncompliant with C-PAP. Wears oxygen at bedtime. 5. Type 2 diabetes mellitus with peripheral neuropathy. She does admit to numbness in her feet. She does not know if she has any retinopathy. 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 7. Chronic back pain due to degenerative disk disease and spinal stenosis. 8. Morbid obesity with BMI of 48. 9. Venous insufficiency. 10. Depression. 11. Hypercholesterolemia. 12. History of gout and hyperuricemia. Surgical History 1. History of uterine cancer, status post ANNIE/BSO. 2. Status post appendectomy. 3. Tonsillectomy. 4. Right elbow surgery due to fracture. Family History Hypertension. Stroke. Unknown cancer. Coronary arterial disease. Social History * Smoker: Denies Alcohol: Denies Drugs: denies A-FIB/CHADSVASC A-FIB History Current/History of A-Fib/PAF?: No Current PO Anticoag Therapy: No Review of Systems Constitutional: Reports: Chills, Fever Eyes: Denies: Pain, Vision change ENT: Denies: Head Aches, Ear Pain Skin: Reports: Rash (over right distal leg) Pulmonary: Denies: Dyspnea, Cough Cardiovascular: Denies: Chest Pain, Palpitations Gastrointestinal: Denies: Nausea, Vomiting Genitourinary: Denies: Dysuria, Frequency Hematologic: Denies: Bruising, Bleeding Excessively Endocrine: Denies: Polydipsia, Polyphagia Musculoskeletal: Denies: Neck Pain Neurological: Denies: Weakness Psych: Reports: Mood Normal Physical Examination General Exam: Positive: Alert, Cooperative Eye Exam: Positive: PERRLA, Conjunctiva & lids normal ENT Exam: Positive: Atraumatic Neck Exam: Positive: Supple; Negative: JVD Chest Exam: Positive: Clear to auscultation Heart Exam: Positive: Rate Normal Telemetry: Positive: No significant arrhythmia Abdomen Exam: Positive: Normal bowel sounds Extremity Exam: Negative: Clubbing, Cyanosis Skin Exam: Positive: Rash (almost suprapubic area and right distal leg), Breakdown (right distal leg superficial ulcer 3 to 4 cm associated with surrounding redness); Negative: Nl turgor and temperature Neuro Exam: Positive: Normal Gait, Strength at 5/5 X4 ext, Cranial Nerves 3-12 NL Psych Exam: Positive: Mental status NL Vital Signs Vital Signs Date Time Temp Pulse Resp B/P (MAP) Pulse Ox O2 Delivery O2 Flow Rate FiO2 01/11/20 22:45 78 16 87/52 (64) Room Air 01/11/20 22:30 90 01/11/20 20:17 100.6 Laboratory Data Labs 24H Laboratory Tests 2 01/11/20 20:45: Immature Granulocyte % (Auto) 1.7, Neutrophils (%) (Auto) 80.4H, Lymphocytes (%) (Auto) 13.2L, Monocytes (%) (Auto) 4.2, Eosinophils (%) (Auto) 0.3, Basophils (%) (Auto) 0.2, Neutrophils # (Auto) 10.6H, Lymphocytes # (Auto) 1.7, Monocytes # (Auto) 0.6, Eosinophils # (Auto) 0.0, Basophils # (Auto) 0.0, Nucleated Red Blood Cells % (auto) 0.0, Anion Gap 8, Glomerular Filtration Rate 29.7L, Lactic Acid Level 1.8, Calcium Level 8.4L, Total Bilirubin 1.9H, Direct Bilirubin 0.7H, Aspartate Amino Transf (AST/SGOT) 32, Alanine Aminotransferase (ALT/SGPT) 23, Alkaline Phosphatase 154H, AO-Vox-X-Type Natriuretic Peptide 1672H, Total Protein 6.2L, Albumin 2.1L, Albumin/Globulin Ratio 0.51L, Thyroid Stimulating Hormone (TSH) 1.090 CBC/BMP Laboratory Tests 01/11/20 20:45 Microbiology Microbiology 01/11/20 Blood Culture, Received Pending 01/11/20 Blood Culture, Received Pending Assessment/Plan Patient is 69 years old female with past medical history of morbid obesity, type 2 diabetes, chronic lymphedema of lower extremities presented hospital with fever, chills, right leg erythema. Patient stated that for past 2 days she has been having increased swelling of the right leg associated with erythema. Patient has stage I superficial wound of right distal leg. Also patient notes fever of 100.2 associated with chills. In ER patient was found to have leukocytosis of 13.2, fever of 100.6 and hypotension. Patient denied palpitations, chest pain, diarrhea or dysuria Problems (1) Sepsis Status: Acute Problem Text: Secondary to right leg cellulitis Gentle IV fluid given history of diastolic CHF Blood culture I will give vancomycin IV due to possible MRSA infection, also patient has diabetes which predisposed to Pseudomonas infection, I started cefepime MRSA screen (2) Cellulitis Problem Text: Secondary to stage I ulcer on the right distal leg See above (3) Morbid obesity with BMI of 45.0-49.9, adult Status: Chronic Problem Text: Patient will benefit from bariatric surgery (4) Diabetes mellitus type 2 in obese Status: Chronic Problem Text: Insulin sliding scale Diabetes diet Plan / VTE VTE Prophylaxis Ordered?: Yes RA RUSSELL DO Jan 11, 2020 23:22
[2020-01-12 01:18] VITALS: BP 119/90
[2020-01-12] MEDS: CEFEPIME HCL 1 GM in D5W MINI-BAG PLUS 50 ML IV SCH (01:56)
--- NOTE | 2020-01-12 02:07 | PHACANCOPD ---
PHARMACY VANCOMYCIN DOSING Pt Demographics Demographics Patient Age:69 , Weight:114.000 , Gender: female Adjusted Body Weight Date: 01/12/20, Adjusted Body Weight: Kg Events Past 24 Hours Events Past 24 Hours: NO: Dialysis, Diuretic Therapy, Change in CrCl, Fever, Elevation in WBC, Pending Diagnostics, Pending Procedures, Other Vancomycin Vancomycin Target Ranges: 15-20 mcg/ml Vancomycin Load Y/N: Yes Load Dose Date Time Vancomycin Load Dose: 1000mg-1000mg Date: 11-01-14 Time: Vancomycin Dose Date: 01/12/20. Current Vancomycin Dose: [1000mg q12h] Intermittent Dosing?: No Labs Labs Item Value Date Time White Blood Count 13.2 10^3/uL H 01/11/202044 Glomerular Filtration Rate 29.7 L 01/11/202044 Creatinine 1.81 MG/DL H 01/11/202044 Blood Urea Nitrogen 27 MG/DL H 01/11/202044 Vital Signs Label Value Date Time Patient Temperature 98.2 degrees F 01/11/20 2336 Temperature Source Oral 01/11/20 233 Micro Microbiology 01/11/20 Blood Culture, Received Pending 01/11/20 Blood Culture, Received Pending Creatinine Clearance Date:01/12/20. Creatinine Clearance: [~25]. Pending Labs Trough 01-12 @0200 Assessment and Plan Maintaining Current Dose?: Yes Reason for dose change: No Dose Change Pharmacist Note Pharmacist Note Date: 01/12/20. Pharmacist note:Will monitor and make adjustments as needed. IAIN [facility] Jan 12, 2020 02:07
[2020-01-12] MEDS ORDERED: VANCOMYCIN HCL 1,000 MG, VIAL MATE ADAPTER 1 EACH in D5W 250 ML IV SCH (03:00)
[2020-01-12] MEDS: NS 1,000 ML IV SCH ×2 (03:29→13:28)
[2020-01-12 06:00] VITALS: BP 119/60
[2020-01-12] MEDS: HumaLOG INSULIN (NovoLOG) PER UNIT SC SCH ×4 (07:30→20:42)
[2020-01-12 08:57] LABS: HEMATOCRIT 34.5 % (36.0-47.0); HEMOGLOBIN 11.2 g/dl (12.0-15.5); MEAN CORPUSCULAR HEMOGLOBIN 32.8 pg (27.0-33.0); MEAN CORPUSCULAR HGB CONC 32.5 g/dl (32.0-36.5); MEAN CORPUSCULAR VOLUME 101.2 fl (80.0-96.0); PLATELET COUNT, AUTOMATED 201 10^3/uL (150-450); RED BLOOD COUNT 3.41 10^6/uL (4.00-5.40); WHITE BLOOD COUNT 12.4 10^3/uL (4.0-10.0)
[2020-01-12] MEDS: buPROPion **SR TABLET** (ZYBAN) 150MG PO SCH ×2 (09:09→20:41)
[2020-01-12] MEDS: HEPARIN SOD (PORCINE) 5000 UNITS/ML VIAL (J1644 PER 1000UNITS) SC SCH ×2 (09:10→20:42)
[2020-01-12] MEDS: allopurinoL 300 MG TAB PO SCH (09:10)
[2020-01-12] MEDS: CALCITRIOL 0.25 MCG CAP (S0169) PO SCH (09:10)
[2020-01-12] MEDS: GABAPENTIN 300 MG CAP PO SCH ×2 (09:10→20:41)
[2020-01-12] MEDS: FUROSEMIDE 40 MG TAB PO SCH (09:10)
[2020-01-12] MEDS: ASPIRIN 81 MG ENTERIC TAB PO SCH (09:10)
[2020-01-12] MEDS: FLUoxetine 20 MG CAP PO SCH (09:10)
[2020-01-12 09:30] LABS: CALCIUM LEVEL 8.1 MG/DL (8.8-10.2); CREATININE FOR GFR 1.64 MG/DL (0.55-1.30); GLOMERULAR FILTRATION RATE 33.3 (>45); MAGNESIUM LEVEL 1.6 MG/DL (1.8-2.4); POTASSIUM SERUM 3.4 MEQ/L (3.5-5.1)
--- NOTE | 2020-01-12 13:16 | IPNPDOC ---
Subjective Date Seen The patient was seen on 01/12/20. Subjective Chief Complaint/HPI Carmen is well, her BP is improved with IVFs. She's sitting in the chair w/o complaints of lightheadedness. Her RLE is not very erythematous this morning, she has a small open wound on her lemus with mild serosanguineous drainage Objective Physical Examination General Exam: Positive: Alert, Cooperative, No Acute Distress Eye Exam: Positive: PERRLA, Conjunctiva & lids normal, EOMI; Negative: Sclera icteric ENT Exam: Positive: Atraumatic Neck Exam: Positive: Supple; Negative: JVD Chest Exam: Positive: Clear to auscultation; Negative: Rales, Rhonchi, Wheezing Heart Exam: Positive: Rate Normal, Normal S1, Normal S2 Telemetry: Positive: No significant arrhythmia Abdomen Exam: Positive: Normal bowel sounds, Soft; Negative: Tenderness Extremity Exam: Negative: Clubbing, Cyanosis Skin Exam: Positive: Breakdown (right distal leg superficial ulcer 3 to 4 cm associated with surrounding redness), Other skin issue (bilateral chronic lymphedema); Negative: Nl turgor and temperature Neuro Exam: Positive: Cranial Nerves 3-12 NL Psych Exam: Positive: Mental status NL Assessment /Plan Assessment # Sepsis with hypotension from RLE cellulitis ruled out by normal b.cx + lactic acid - I suspect her hypotension was brought on by dehydration from diuretic use and not sepsis, clinically I don't feel she is septic. - hold lasix - continue IVFs # RLE cellulitis in the setting of chronic LE lymphedema - stop vanco, mrsa screen negative - continue cefepime for today, anticipate starting orals in am if blood cultures remain normal - likely home sometime this weekend when DEB improves # DEB superimposed on CKD stage 3 # Renal osteodystrophy # hyperuricemia - worsened by diuretic therapy, previously had a normal creatinine - improved with IVFs - BMP in am - hold lasix - continue allopurinol + Rocaltrol # Skinfold candidiasis - nystatin powder bid # NIDDM2 with peripheral neuropathy - glipizide held - continue SS - continue Neurontin # Chronic diastolic CHF - hold lasix Plan/VTE VTE Prophylaxis Ordered?: Yes (hep sq bid) VTE Exclusion Mechanical Proph: N/A:VTE Prophy Ordered VTE Exclusion Pharmacological: N/A:VTE Prophy Ordered VS, I&O, 24H, Fishbone Vital Signs/I&O Vital Signs Date Time Temp Pulse Resp B/P (MAP) Pulse Ox O2 Delivery O2 Flow Rate FiO2 01/12/20 06:00 97.7 81 17 119/60 (79) 97 Room Air I&O- Last 24 Hours up to 6 AM 01/12/20 06:00 Intake Total 500 ml Balance 500 ml Laboratory Data 24H LABS Laboratory Tests 2 01/11/20 20:45: Immature Granulocyte % (Auto) 1.7, Neutrophils (%) (Auto) 80.4H, Lymphocytes (%) (Auto) 13.2L, Monocytes (%) (Auto) 4.2, Eosinophils (%) (Auto) 0.3, Basophils (%) (Auto) 0.2, Neutrophils # (Auto) 10.6H, Lymphocytes # (Auto) 1.7, Monocytes # (Auto) 0.6, Eosinophils # (Auto) 0.0, Basophils # (Auto) 0.0, Nucleated Red Blood Cells % (auto) 0.0, Anion Gap 8, Glomerular Filtration Rate 29.7L, Lactic Acid Level 1.8, Calcium Level 8.4L, Total Bilirubin 1.9H, Direct Bilirubin 0.7H, Aspartate Amino Transf (AST/SGOT) 32, Alanine Aminotransferase (ALT/SGPT) 23, Alkaline Phosphatase 154H, RR-Szf-I-Type Natriuretic Peptide 1672H, Total Protein 6.2L, Albumin 2.1L, Albumin/Globulin Ratio 0.51L, Thyroid Stimulating Hormone (TSH) 1.090 01/12/20 01:31: Bedside Glucose (Misc Panel) 94 01/12/20 08:48: Nucleated Red Blood Cells % (auto) 0.0, Anion Gap 7L, Glomerular Filtration Rate 33.3L, Calcium Level 8.1L, Magnesium Level 1.6L 01/12/20 09:15: Methicillin-Resist S.aureus DNA PCR NOT DETECTED 01/12/20 11:35: Bedside Glucose (Misc Panel) 131H CBC/BMP Laboratory Tests 01/11/20 20:45 01/12/20 08:48 Microbiology Microbiology 01/11/20 Blood Culture, Received Pending 01/11/20 Blood Culture, Received Pending CHEIKH ESCOTO MD Jan 12, 2020 13:16
[2020-01-12] MEDS: NYSTATIN 100,000 UNITS/GM TOPICAL PWD 15 GM TOP SCH ×2 (13:28→20:42)
[2020-01-12] MEDS: MAGNESIUM OXIDE 400 MG TAB (MAG-OX) PO SCH ×2 (13:28→20:41)
[2020-01-12 14:00] VITALS: BP 124/65
[2020-01-12] MEDS ORDERED: POTASSIUM CHLORIDE 10 MEQ SR TABLET PO ONE (14:00)
[2020-01-12] MEDS: NIACIN SR (NIASPAN) 500 MG TAB PO SCH (20:41)
[2020-01-12] MEDS: SIMVASTATIN 20 MG TAB PO SCH (20:41)
[2020-01-12 22:00] VITALS: BP 120/60
[2020-01-13] MEDS: CEFEPIME HCL 1 GM in D5W MINI-BAG PLUS 50 ML IV SCH (00:09)
[2020-01-13] MEDS: NS 1,000 ML IV SCH (03:43)
[2020-01-13 06:00] VITALS: BP 117/59
[2020-01-13 06:29] LABS: HEMATOCRIT 30.8 % (36.0-47.0); MEAN CORPUSCULAR HEMOGLOBIN 32.6 pg (27.0-33.0); MEAN CORPUSCULAR HGB CONC 32.5 g/dl (32.0-36.5); MEAN CORPUSCULAR VOLUME 100.3 fl (80.0-96.0); PLATELET COUNT, AUTOMATED 170 10^3/uL (150-450); RED BLOOD COUNT 3.07 10^6/uL (4.00-5.40); WHITE BLOOD COUNT 6.3 10^3/uL (4.0-10.0)
[2020-01-13 06:47] LABS: CREATININE FOR GFR 1.49 MG/DL (0.55-1.30); GLOMERULAR FILTRATION RATE 37.2 (>45); MAGNESIUM LEVEL 1.7 MG/DL (1.8-2.4); POTASSIUM SERUM 3.7 MEQ/L (3.5-5.1)
[2020-01-13] MEDS: HumaLOG INSULIN (NovoLOG) PER UNIT SC SCH ×4 (09:02→20:57)
[2020-01-13] MEDS: buPROPion **SR TABLET** (ZYBAN) 150MG PO SCH ×2 (09:36→21:04)
[2020-01-13] MEDS: GABAPENTIN 300 MG CAP PO SCH ×2 (09:36→21:04)
[2020-01-13] MEDS: ASPIRIN 81 MG ENTERIC TAB PO SCH (09:36)
[2020-01-13] MEDS: allopurinoL 300 MG TAB PO SCH (09:36)
[2020-01-13] MEDS: NYSTATIN 100,000 UNITS/GM TOPICAL PWD 15 GM TOP SCH ×2 (09:36→21:05)
[2020-01-13] MEDS: VANCOMYCIN HCL 1,000 MG, VIAL MATE ADAPTER 1 EACH in D5W 250 ML IV SCH ×2 (09:36→22:02)
[2020-01-13] MEDS: HEPARIN SOD (PORCINE) 5000 UNITS/ML VIAL (J1644 PER 1000UNITS) SC SCH ×2 (09:37→21:04)
[2020-01-13] MEDS: FLUoxetine 20 MG CAP PO SCH (09:37)
[2020-01-13] MEDS: MAGNESIUM OXIDE 400 MG TAB (MAG-OX) PO SCH ×2 (09:37→21:04)
--- NOTE | 2020-01-13 13:58 | IPNPDOC ---
Subjective Date Seen The patient was seen on 01/13/20. Subjective Chief Complaint/HPI feels 100% better. No complaints. Afebrile Objective Physical Examination General Exam: Positive: Alert, Cooperative, No Acute Distress Eye Exam: Positive: PERRLA, Conjunctiva & lids normal, EOMI; Negative: Sclera icteric ENT Exam: Positive: Atraumatic Neck Exam: Positive: Supple; Negative: JVD Chest Exam: Positive: Clear to auscultation; Negative: Rales, Rhonchi, Wheezing Heart Exam: Positive: Rate Normal, Normal S1, Normal S2 Telemetry: Positive: No significant arrhythmia Abdomen Exam: Positive: Normal bowel sounds, Soft; Negative: Tenderness Extremity Exam: Negative: Clubbing, Cyanosis Skin Exam: Positive: Breakdown (right distal leg superficial ulcer 3 to 4 cm associated with surrounding redness), Other skin issue (bilateral chronic lymphedema, erythema overall improved); Negative: Nl turgor and temperature Neuro Exam: Positive: Cranial Nerves 3-12 NL Psych Exam: Positive: Mental status NL Assessment /Plan Assessment # Sepsis with hypotension from RLE cellulitis ruled out - I suspect her hypotension was brought on by dehydration from diuretic use and not sepsis, clinically I don't feel she is septic. - resume lasix at discharge - discontinue IVFs # RLE cellulitis in the setting of chronic LE lymphedema - mrsa screen negative - 11/30 b.cx + GPC clusters, likely contaminant but won't know until wednesday or wednesday per [facility] lab - resume vanco with pharm to dose - discontinue cefepime today - home wednesday/wednesday when b.cx final # DEB superimposed on CKD stage 3 # Renal osteodystrophy # hyperuricemia - worsened by diuretic therapy, previously had a normal creatinine - improved with IVFs - hold lasix - continue allopurinol + Rocaltrol # Skinfold candidiasis - nystatin powder bid # NIDDM2 with peripheral neuropathy - glipizide held - continue SS - continue Neurontin # Chronic diastolic CHF - hold lasix Plan/VTE VTE Prophylaxis Ordered?: Yes (hep sq bid) VTE Exclusion Mechanical Proph: N/A:VTE Prophy Ordered VTE Exclusion Pharmacological: N/A:VTE Prophy Ordered VS, I&O, 24H, Fishbone Vital Signs/I&O Vital Signs Date Time Temp Pulse Resp B/P (MAP) Pulse Ox O2 Delivery O2 Flow Rate FiO2 01/13/20 06:00 98.4 79 17 117/59 (78) 99 Nasal Cannula 2.0 I&O- Last 24 Hours up to 6 AM 01/13/20 06:00 Intake Total 3713 ml Output Total 300 ml Balance 3413 ml Laboratory Data 24H LABS Laboratory Tests 2 01/12/20 16:46: Bedside Glucose (Misc Panel) 107 01/12/20 20:37: Bedside Glucose (Misc Panel) 98 01/13/20 06:07: Nucleated Red Blood Cells % (auto) 0.0, Anion Gap 6L, Glomerular Filtration Rate 37.2L, Calcium Level 9.0, Magnesium Level 1.7L 01/13/20 12:05: Bedside Glucose (Misc Panel) 153H CBC/BMP Laboratory Tests 01/13/20 06:07 Microbiology Microbiology 01/11/20 Blood Culture - Preliminary, Resulted No growth after 24 hours . All specim... 01/11/20 Blood Culture - Preliminary, Resulted CHEIKH ESCOTO MD Jan 13, 2020 13:58
[2020-01-13 14:00] VITALS: BP 114/56
[2020-01-13] MEDS: SIMVASTATIN 20 MG TAB PO SCH (21:04)
[2020-01-13] MEDS: NIACIN SR (NIASPAN) 500 MG TAB PO SCH (21:04)
[2020-01-13 22:00] VITALS: BP 132/61
[2020-01-14 06:00] VITALS: BP 112/56
[2020-01-14 07:08] LABS: HEMATOCRIT 29.1 % (36.0-47.0); HEMOGLOBIN 9.4 g/dl (12.0-15.5); MEAN CORPUSCULAR HEMOGLOBIN 32.6 pg (27.0-33.0); MEAN CORPUSCULAR HGB CONC 32.3 g/dl (32.0-36.5); PLATELET COUNT, AUTOMATED 213 10^3/uL (150-450); RED BLOOD COUNT 2.88 10^6/uL (4.00-5.40); WHITE BLOOD COUNT 5.4 10^3/uL (4.0-10.0)
[2020-01-14 07:29] LABS: CALCIUM LEVEL 8.4 MG/DL (8.8-10.2); CREATININE FOR GFR 1.54 MG/DL (0.55-1.30); GLOMERULAR FILTRATION RATE 35.8 (>45); MAGNESIUM LEVEL 1.9 MG/DL (1.8-2.4); POTASSIUM SERUM 3.6 MEQ/L (3.5-5.1)
[2020-01-14] MEDS: MAGNESIUM OXIDE 400 MG TAB (MAG-OX) PO SCH ×2 (08:15→21:36)
[2020-01-14] MEDS: buPROPion **SR TABLET** (ZYBAN) 150MG PO SCH ×2 (08:15→21:36)
[2020-01-14] MEDS: ASPIRIN 81 MG ENTERIC TAB PO SCH (08:15)
[2020-01-14] MEDS: FLUoxetine 20 MG CAP PO SCH (08:15)
[2020-01-14] MEDS: NYSTATIN 100,000 UNITS/GM TOPICAL PWD 15 GM TOP SCH ×2 (08:16→21:36)
[2020-01-14] MEDS: GABAPENTIN 300 MG CAP PO SCH ×2 (08:16→21:36)
[2020-01-14] MEDS: allopurinoL 300 MG TAB PO SCH (08:16)
[2020-01-14] MEDS: FUROSEMIDE 40 MG TAB PO SCH (08:16)
[2020-01-14] MEDS: HEPARIN SOD (PORCINE) 5000 UNITS/ML VIAL (J1644 PER 1000UNITS) SC SCH ×2 (08:16→21:36)
[2020-01-14] MEDS: HumaLOG INSULIN (NovoLOG) PER UNIT SC SCH ×4 (08:17→20:55)
[2020-01-14] MEDS: VANCOMYCIN HCL 1,000 MG, VIAL MATE ADAPTER 1 EACH in D5W 250 ML IV SCH ×2 (10:12→21:35)
--- NOTE | 2020-01-14 12:41 | IPNPDOC ---
Subjective Date Seen The patient was seen on 01/14/20. Subjective Chief Complaint/HPI No complaints, awaiting b.cx results. Legs are not painful, redness improved, walking in room with walker w/o increased weakness nor debility Objective Physical Examination General Exam: Positive: Alert, Cooperative, No Acute Distress Eye Exam: Positive: PERRLA, Conjunctiva & lids normal, EOMI; Negative: Sclera icteric ENT Exam: Positive: Atraumatic Neck Exam: Positive: Supple; Negative: JVD Chest Exam: Positive: Clear to auscultation; Negative: Rales, Rhonchi, Wheezing Heart Exam: Positive: Rate Normal, Normal S1, Normal S2 Telemetry: Positive: No significant arrhythmia Abdomen Exam: Positive: Normal bowel sounds, Soft; Negative: Tenderness Extremity Exam: Negative: Clubbing, Cyanosis Skin Exam: Positive: Breakdown (right distal leg superficial ulcer 3 to 4 cm associated with surrounding redness), Other skin issue (bilateral chronic lymphedema, erythema overall improved); Negative: Nl turgor and temperature Neuro Exam: Positive: Cranial Nerves 3-12 NL Psych Exam: Positive: Mental status NL Assessment /Plan Assessment # Sepsis with hypotension from RLE cellulitis ruled out - I suspect her hypotension was brought on by dehydration from diuretic use and not sepsis, clinically I don't feel she is septic. - resume lasix at discharge # RLE cellulitis in the setting of chronic LE lymphedema - mrsa screen negative - 11/30 b.cx + GPC clusters, likely contaminant but won't know until wednesday per [facility] lab - vanco with pharm to dose - home when b.cx final # DEB superimposed on CKD stage 3 # Renal osteodystrophy # hyperuricemia - worsened by diuretic therapy, previously had a normal creatinine - improved with IVFs - hold lasix - continue allopurinol + Rocaltrol # Skinfold candidiasis - nystatin powder bid # NIDDM2 with peripheral neuropathy - glipizide held - continue SS - continue Neurontin # Chronic diastolic CHF - hold lasix Plan/VTE VTE Prophylaxis Ordered?: Yes (hep sq bid) VTE Exclusion Mechanical Proph: N/A:VTE Prophy Ordered VTE Exclusion Pharmacological: N/A:VTE Prophy Ordered VS, I&O, 24H, Fishbone Vital Signs/I&O Vital Signs Date Time Temp Pulse Resp B/P (MAP) Pulse Ox O2 Delivery O2 Flow Rate FiO2 01/14/20 06:00 98.1 83 18 112/56 (74) 100 Nasal Cannula 2.0 I&O- Last 24 Hours up to 6 AM 01/14/20 06:00 Intake Total 1958 ml Output Total 600 ml Balance 1358 ml Laboratory Data 24H LABS Laboratory Tests 2 01/13/20 16:37: Bedside Glucose (Misc Panel) 135H 01/13/20 20:54: Bedside Glucose (Misc Panel) 100 01/14/20 06:08: Nucleated Red Blood Cells % (auto) 0.0, Anion Gap 5L, Glomerular Filtration Rate 35.8L, Calcium Level 8.4L, Magnesium Level 1.9 01/14/20 11:26: Bedside Glucose (Misc Panel) 189H CBC/BMP Laboratory Tests 01/14/20 06:08 Microbiology Microbiology 01/11/20 Blood Culture - Preliminary, Resulted No Growth after 48 hours. All Specime... 01/11/20 Blood Culture - Preliminary, Resulted CHEIKH ESCOTO MD Jan 14, 2020 12:41
[2020-01-14 14:00] VITALS: BP 126/62
[2020-01-14] MEDS: NIACIN SR (NIASPAN) 500 MG TAB PO SCH (21:35)
[2020-01-14] MEDS: SIMVASTATIN 20 MG TAB PO SCH (21:36)
[2020-01-14 22:00] VITALS: BP 125/64
[2020-01-15 06:00] VITALS: BP 115/58
[2020-01-15 06:58] LABS: HEMATOCRIT 28.7 % (36.0-47.0); HEMOGLOBIN 9.1 g/dl (12.0-15.5); MEAN CORPUSCULAR HEMOGLOBIN 31.9 pg (27.0-33.0); MEAN CORPUSCULAR HGB CONC 31.7 g/dl (32.0-36.5); MEAN CORPUSCULAR VOLUME 100.7 fl (80.0-96.0); PLATELET COUNT, AUTOMATED 237 10^3/uL (150-450); RED BLOOD COUNT 2.85 10^6/uL (4.00-5.40); WHITE BLOOD COUNT 5.2 10^3/uL (4.0-10.0)
[2020-01-15 07:15] LABS: CALCIUM LEVEL 8.8 MG/DL (8.8-10.2); CREATININE FOR GFR 1.56 MG/DL (0.55-1.30); GLOMERULAR FILTRATION RATE 35.2 (>45); MAGNESIUM LEVEL 1.7 MG/DL (1.8-2.4); POTASSIUM SERUM 3.7 MEQ/L (3.5-5.1)
[2020-01-15 07:47] VITALS: BP 113/58
[2020-01-15] MEDS: HEPARIN SOD (PORCINE) 5000 UNITS/ML VIAL (J1644 PER 1000UNITS) SC SCH (08:32)
[2020-01-15] MEDS: HumaLOG INSULIN (NovoLOG) PER UNIT SC SCH (08:32)
[2020-01-15] MEDS: buPROPion **SR TABLET** (ZYBAN) 150MG PO SCH (08:33)
[2020-01-15] MEDS: FLUoxetine 20 MG CAP PO SCH (08:33)
[2020-01-15] MEDS: GABAPENTIN 300 MG CAP PO SCH (08:33)
[2020-01-15] MEDS: allopurinoL 300 MG TAB PO SCH (08:33)
[2020-01-15] MEDS: MAGNESIUM OXIDE 400 MG TAB (MAG-OX) PO SCH (08:33)
[2020-01-15] MEDS: FUROSEMIDE 40 MG TAB PO SCH (08:33)
[2020-01-15] MEDS: ASPIRIN 81 MG ENTERIC TAB PO SCH (08:33)
[2020-01-15] MEDS: NYSTATIN 100,000 UNITS/GM TOPICAL PWD 15 GM TOP SCH (08:34)
[2020-01-15] MEDS: CALCITRIOL 0.25 MCG CAP (S0169) PO SCH (08:35)
[2020-01-15] MEDS ORDERED: AUGM500T34 PO (10:15)
--- NOTE | 2020-01-15 10:20 | IPNPDOC ---
Subjective Date Seen The patient was seen on 01/15/20. Subjective Chief Complaint/HPI stable this am. pleased that b.cx is only a contaminant. Objective Physical Examination General Exam: Positive: Alert, Cooperative, No Acute Distress Eye Exam: Positive: PERRLA, Conjunctiva & lids normal, EOMI; Negative: Sclera icteric ENT Exam: Positive: Atraumatic Neck Exam: Positive: Supple; Negative: JVD Chest Exam: Positive: Clear to auscultation; Negative: Rales, Rhonchi, Wheezing Heart Exam: Positive: Rate Normal, Normal S1, Normal S2 Telemetry: Positive: No significant arrhythmia Abdomen Exam: Positive: Normal bowel sounds, Soft; Negative: Tenderness Extremity Exam: Negative: Clubbing, Cyanosis Skin Exam: Positive: Breakdown (right distal leg superficial ulcer 3 to 4 cm associated with surrounding redness), Other skin issue (bilateral chronic lymphedema, erythema overall improved); Negative: Nl turgor and temperature Neuro Exam: Positive: Cranial Nerves 3-12 NL Psych Exam: Positive: Mental status NL Assessment /Plan Assessment # Sepsis with hypotension from RLE cellulitis ruled out - I suspect her hypotension was brought on by dehydration from diuretic use and not sepsis, clinically I don't feel she is septic. - resume lasix at discharge # RLE cellulitis in the setting of chronic LE lymphedema - mrsa screen negative - 11/30 b.cx + GPC clusters (staph epidermis) likely contaminant, stop vanco - augmentin 500 mg bid x 3 days # DEB superimposed on CKD stage 3 # Renal osteodystrophy # hyperuricemia - worsened by diuretic therapy, previously had a normal creatinine - resume lasix - continue allopurinol + Rocaltrol # [place]infold candidiasis - nystatin powder bid # NIDDM2 with peripheral neuropathy - resume glipizide - continue Neurontin # Chronic diastolic CHF - resume lasix Dispo: home today Plan/VTE VTE Prophylaxis Ordered?: Yes (hep sq bid) VTE Exclusion Mechanical Proph: N/A:VTE Prophy Ordered VTE Exclusion Pharmacological: N/A:VTE Prophy Ordered VS, I&O, 24H, Fishbone Vital Signs/I&O Vital Signs Date Time Temp Pulse Resp B/P (MAP) Pulse Ox O2 Delivery O2 Flow Rate FiO2 01/15/20 07:47 97.6 82 18 113/58 (76) 100 Room Air 01/15/20 06:00 2.0 I&O- Last 24 Hours up to 6 AM 01/15/20 06:00 Intake Total 2310 ml Output Total 1600 ml Balance 710 ml Laboratory Data 24H LABS Laboratory Tests 2 01/14/20 11:26: Bedside Glucose (Misc Panel) 189H 01/14/20 16:23: Bedside Glucose (Misc Panel) 112 01/14/20 20:42: Bedside Glucose (Misc Panel) 166H 01/15/20 06:26: Nucleated Red Blood Cells % (auto) 0.0, Anion Gap 1L, Glomerular Filtration Rate 35.2L, Calcium Level 8.8, Magnesium Level 1.7L CBC/BMP Laboratory Tests 01/15/20 06:26 Microbiology Microbiology 01/11/20 Blood Culture - Preliminary, Resulted No Growth after 72 hours. All specime... 01/11/20 Blood Culture - Final, Complete Staphylococcus Epidermidis CHEIKH ESCOTO MD Jan 15, 2020 10:18
--- NOTE | 2020-01-16 18:46 | DSES ---
DATE OF ADMISSION: 01/11/2020 DATE OF DISCHARGE: 01/15/2020 DISCHARGE DIAGNOSES: 1. Right lower extremity cellulitis. 2. Sepsis was ruled out. 3. Hypotension secondary to acute dehydration for diuretic use. 4. Chronic lower extremity lymphedema. 5. Acute kidney injury superimposed on chronic kidney disease, stage III. 6. Renal osteodystrophy. 7. Hyperuricemia. 8. Skin fold candidiasis. 9. Egs-[id number] diabetes mellitus, 2, with sequelae of peripheral neuropathy. 10. Chronic diastolic congestive heart failure. PROCEDURES PERFORMED DURING HOSPITALIZATION: None. CONSULTANTS ON THE CASE: None. DISPOSITION: Patient was discharged home. PENDING LABORATORIES AT THE TIME OF DISCHARGE: None. DISCHARGE INSTRUCTIONS: Patient is instructed to followup with her primary care physician (PCP) in approximately 1-2 weeks' time. She is to complete a 3-day course of Augmentin 500 mg/125 one tablet twice a day. CONDITION AT DISCHARGE: Improved from admission. RELEVANT LABORATORY DATA: Blood cultures: One out of two blood cultures grew Staphylococcus epidermidis, which is felt to be a contaminant. On admission her white count was 13.2, at discharge 5.2, hemoglobin 9.1, hematocrit 28.7, platelet counts are 237,000. Sodium 141, potassium 3.7, chloride 110, bicarbonate is 30, anion gap 1, BUN 25, creatinine on admission was 1.81; with hydration and holding her diuretic it improved to 1.56. Methicillin-resistant Staphylococcus aureus (MRSA) polymerase chain reaction (PCR) was negative. IMAGING STUDIES: None. DISCHARGE MEDICATIONS: - amoxicillin 500/125 one tablet twice a day for 3 days - allopurinol 300 mg daily - baby aspirin daily - bupropion 150 mg daily - calcitriol 0.25 mg twice a week - Colace 200 mg daily as needed for constipation - fluoxetine 40 mg daily - furosemide 80 mg daily - gabapentin 600 mg twice a day - glipizide 5 mg daily - Warren one tablet by mouth every 6 hours as needed for pain - magnesium oxide 400 mg three times a week - metoprolol tartrate 100 mg by mouth daily - niacin extended release 1000 mg at bedtime - nitrofurantoin 100 mg twice a day - simvastatin 20 mg at bedtime HOSPITAL COURSE: Ms. Muir is a 69-year-old woman who had presented to the hospital with primary complaint of malaise and weakness. She had been experiencing fevers, chills, and increased right lower extremity erythema and associated swelling. In the emergency room (ER) department, she was noted to have a fever of 100.2 as well as a white blood cell count of 13,000. She was mildly hypotensive but improved with fluids and holding her diuretics. Her creatinine was found to be elevated at 1.8. The following morning I assumed care. The patient had been placed on broad-spectrum antibiotics consisting of vancomycin and cefepime. Her leukocytosis improved. Blood cultures one out of two grew gram-positive cocci. She was discontinued from cefepime and maintained on vancomycin; however, this ultimately grew Staphylococcus epidermidis, felt to represent a contaminant. Clinically the patient's symptoms got better. Erythema got better. Her renal function improved with holding her diuretic and giving her fluid. I did not feel that she was septic. I felt that likely she was hypotensive from effects of her blood pressure medication as well as diuretics, which had intravascularly depleted her. With hydrating her, her blood pressures remained stable, and she was discharged home in stable condition. A total of 30 minutes was spent, including all discharge paperwork.
== END 2020-01-15 12:05 | disposition home health service (06) | DRG 603 ==
LOC: M ED 20:00 → EEVIPCON 22:59 → M ED INP 22:59 → ENRESERV 23:39 → M MSPAV 01-12 01:18
PROVIDERS: ADMIT Internal Medicine; ATTEND Internal Medicine
DX: L03.115 Cellulitis of right lower limb (principal); I13.0 Hypertensive heart and chronic kidney disease with heart failure and stage 1 through stage 4 chronic kidney disease, or unspecified chronic kidney disease; I50.32 Chronic diastolic (congestive) heart failure; Z68.42 Body mass index [BMI] 45.0-49.9, adult; L97.918 Non-pressure chronic ulcer of unspecified part of right lower leg with other specified severity; N17.9 Acute kidney failure, unspecified; E66.01 Morbid (severe) obesity due to excess calories; I89.0 Lymphedema, not elsewhere classified; I95.9 Hypotension, unspecified; E11.622 Type 2 diabetes mellitus with other skin ulcer; E79.0 Hyperuricemia without signs of inflammatory arthritis and tophaceous disease; N25.0 Renal osteodystrophy; E11.42 Type 2 diabetes mellitus with diabetic polyneuropathy; I87.2 Venous insufficiency (chronic) (peripheral); M48.061 Spinal stenosis, lumbar region without neurogenic claudication; F32.9 Major depressive disorder, single episode, unspecified; E11.22 Type 2 diabetes mellitus with diabetic chronic kidney disease; B37.2 Candidiasis of skin and nail; N18.3 Chronic kidney disease, stage 3 (moderate); G47.33 Obstructive sleep apnea (adult) (pediatric); M51.36 Other intervertebral disc degeneration, lumbar region; E78.00 Pure hypercholesterolemia, unspecified; Z85.42 Personal history of malignant neoplasm of other parts of uterus; Z79.84 Long term (current) use of oral hypoglycemic drugs; Z90.710 Acquired absence of both cervix and uterus; Z90.49 Acquired absence of other specified parts of digestive tract; Z87.81 Personal history of (healed) traumatic fracture; Z79.82 Long term (current) use of aspirin; Z79.899 Other long term (current) drug therapy

== ENCOUNTER → 2020-02-09 | Outpatient (REF) | payer MEDICARE, MEDICAID ==
[~2020-02-09] MED LIST changes: +NITR-67 PO
== END ==
LOC: M SHH 16:09
PROVIDERS: ATTEND Physician Assistant
DX: R30.0 Dysuria (principal)

== ENCOUNTER → 2020-03-01 | Outpatient (REF) | payer MEDICARE, MEDICAID | LOC: M LAB REF 15:19 | PROVIDERS: ATTEND Physician Assistant | DX: N39.0 Urinary tract infection, site not specified (principal) ==

== ENCOUNTER → 2020-03-06 | Outpatient (REF) | payer MEDICARE, MEDICAID | LOC: M SHH 16:47 | PROVIDERS: ATTEND Physician Assistant | DX: J20.9 Acute bronchitis, unspecified (principal); R05 Cough; E11.22 Type 2 diabetes mellitus with diabetic chronic kidney disease ==

== ENCOUNTER → 2020-08-10 | Outpatient (REF) | payer MEDICARE, MEDICAID | LOC: M WUC 13:19 | PROVIDERS: ATTEND Physician Assistant | DX: N39.0 Urinary tract infection, site not specified (principal) ==

== ENCOUNTER → 2020-08-23 | Outpatient (REF) | payer OTHER | LOC: M LAB REF 15:56 | PROVIDERS: ATTEND Nurse Practitioner Family | DX: N39.0 Urinary tract infection, site not specified (principal) ==

== ENCOUNTER → 2020-09-04 | Outpatient (REF) | payer MEDICAID, MEDICARE | LOC: M LAB REF 19:50 | PROVIDERS: ATTEND Physician Assistant | DX: N39.0 Urinary tract infection, site not specified (principal) ==

== ENCOUNTER → 2020-09-04 | Outpatient (CLI) | payer MEDICARE, MEDICAID ==
--- NOTE | 2020-09-04 14:54 | REPVR ---
PROCEDURE INFORMATION: Exam: CT Head Without Contrast Exam date and time: 09/04/2020 2:26 PM Age: 70 years old Clinical indication: Other: Weakness, left side; Additional info: Lt side weakness, CVA TECHNIQUE: Imaging protocol: Computed tomography of the head without contrast. Radiation optimization: All CT scans at this facility use at least one of these dose optimization techniques: automated exposure control; mA and/or kV adjustment per patient size (includes targeted exams where dose is matched to clinical indication); or iterative reconstruction. COMPARISON: CT Head without contrast 11/29/2019 5:55 PM FINDINGS: Brain: The brain demonstrates generalized volume loss. Patchy hypodensities in the deep white matter most likely representing chronic small vessel ischemic change. Cerebral ventricles: The ventricles appear mildly enlarged in keeping with volume loss, stable. Bones/joints: Unremarkable. No acute fracture. Paranasal sinuses: Visualized sinuses are unremarkable. No fluid levels. Mastoid air cells: Visualized mastoid air cells are well aerated. Soft tissues: Unremarkable. IMPRESSION: No acute intracranial abnormality seen. Electronically signed by: Nicolle Dong On 09/04/2020 14:54:23 PM
== END ==
LOC: M RAD 14:14
PROVIDERS: ATTEND Physician Assistant
DX: R53.1 Weakness (principal)

== ENCOUNTER 2020-10-31 11:37 | Inpatient (IN) | payer MEDICARE ==
[~2020-10-31] VITALS: Ht 152.4 cm; Wt 116.0 kg
[2020-10-31] MEDS ORDERED: ALLO100T PO (13:04)
[2020-10-31] MEDS ORDERED: METOPROLOL TART 50 MG TAB PO ONE (13:45)
[2020-10-31] MEDS ORDERED: ACETAMINOPHEN 325 MG TAB PO ONE (13:45)
[2020-10-31] MEDS ORDERED: METOPROLOL 5 MG/5 ML VIAL IV SCH (13:45)
--- NOTE | 2020-10-31 13:54 | REP ---
INDICATION: SEPSIS/SHOCK. COMPARISON: Comparison chest x-ray November 29, 2019.. TECHNIQUE: Sitting AP portable chest radiograph. FINDINGS: Monitoring electrodes are seen. Heart size is borderline. Pulmonary vasculature is cephalized. There is no evidence of pleural effusion or pulmonary edema. No focal infiltrate is seen. There is old posttraumatic deformity of the proximal humerus on the left. IMPRESSION: Borderline heart size. Vascular cephalization. Otherwise no acute disease. <Electronically signed by Michael Ang > 10/31/20 [id number]
[2020-10-31 13:56] LABS: VENOUS BASE EXCESS 1.2 (-2.0-2.0); VENOUS HCO3 27.9 MEQ/L (23.0-27.0); VENOUS O2 SATURATION 95.2 % (60.0-80.0); VENOUS PARTIAL PRESSURE CO2 53.2 mmHg (38.0-50.0); VENOUS PARTIAL PRESSURE O2 79.7 mmHg (30.0-50.0); VENOUS PH 7.338 UNITS (7.330-7.430); VENOUS STANDARD HCO3 25.5 MEQ/L; VENOUS TOTAL CO2 29.6 MEQ/L (24.0-28.0)
[2020-10-31 14:01] LABS: HEMATOCRIT 39.2 % (36.0-47.0); HEMOGLOBIN 12.7 g/dl (12.0-15.5); MEAN CORPUSCULAR HEMOGLOBIN 33.5 pg (27.0-33.0); MEAN CORPUSCULAR HGB CONC 32.4 g/dl (32.0-36.5); MEAN CORPUSCULAR VOLUME 103.4 fl (80.0-96.0); PLATELET COUNT, AUTOMATED 139 10^3/uL (150-450); RED BLOOD COUNT 3.79 10^6/uL (4.00-5.40); WHITE BLOOD COUNT 6.5 10^3/uL (4.0-10.0)
[2020-10-31 14:11] LABS: INR 1.58; PROTHROMBIN TIME 19.2 SECONDS (12.5-14.3)
[2020-10-31 14:12] LABS: PARTIAL THROMBOPLASTIN TIME 25.2 SECONDS (24.2-38.5)
[2020-10-31] MEDS ORDERED: DIGOXIN INJ 0.5 MG/2 ML AMP (J1160) IV STA (14:22)
[2020-10-31 14:29] LABS: ALBUMIN 2.4 GM/DL (3.2-5.2); ALT/SGPT 34 U/L (12-78); BILIRUBIN,DIRECT 0.5 MG/DL (0.0-0.2); BILIRUBIN,TOTAL 1.1 MG/DL (0.2-1.0); BLOOD UREA NITROGEN 40 MG/DL (7-18); CALCIUM LEVEL 9.3 MG/DL (8.8-10.2); CARBON DIOXIDE LEVEL 27 MEQ/L (21-32); CHLORIDE LEVEL 110 MEQ/L (98-107); CK-MB VALUE MASS 2.6 NG/ML (<3.6); CPK CREATINE PHOSPHOKINASE 316 U/L (26-192); CREATININE FOR GFR 1.77 MG/DL (0.55-1.30); GLOMERULAR FILTRATION RATE 30.4 (>45); GLUCOSE, FASTING 83 MG/DL (70-100); MB/CK RELATIVE INDEX 0.82 (< OR =4); POTASSIUM SERUM 4.1 MEQ/L (3.5-5.1); SODIUM LEVEL 146 MEQ/L (136-145); TROPONIN I < 0.02 NG/ML (< 0.10)
[2020-10-31 14:45] LABS: LYMPHOCYTES 7 % (16-44); METAMYELOCYTES 8 % (0-0); MONOCYTES 1 % (0-5); MYELOCYTES 3 % (0-0); NEUTROPHILS 44 % (28-66); PLATELET ESTIMATE DECREASED (NORMAL)
[2020-10-31] MEDS ORDERED: cefTRIAXone SOD 2 GM in D5W MINI-BAG PLUS 50 ML IV ONE (14:45)
[2020-10-31 14:46] LABS: TOXIC VACUOLATION 2+
[2020-10-31 14:49] LABS: TOXIC GRANULATION 2+
[2020-10-31] MEDS ORDERED: NS IV ONE (15:00)
[2020-10-31] MEDS ORDERED: VANCOMYCIN HCL 2,000 MG in D5W 500 ML IV ONE (15:15)
--- NOTE | 2020-10-31 15:35 | REP ---
INDICATION: SWELLING. COMPARISON: None pertinent TECHNIQUE: Multiple ultrasonographic images of the deep venous structures of the bilateral thigh were obtained from the common femoral vein to the popliteal vein along with Doppler interrogation and color flow Doppler images. FINDINGS: There is no abnormal echogenic material seen within any of the visualized deep venous structures that would suggest acute thrombosis. Coaptation is unremarkable throughout. Doppler interrogation shows an expected response to respiratory variability and augmentation. The color flow images show what appears to be a normal vascular pattern throughout. The technologist has indicated on the worksheet that evaluation of the right popliteal vein was limited due to the patient's complaints of pain during scanning. IMPRESSION: There is no ultrasonographic evidence of deep venous thrombosis involving any of the visualized deep venous structures of the bilateral thigh, as described above. <Electronically signed by Ramirez Austin > 10/31/20 [id number]
[2020-10-31] MEDS ORDERED: VANCOMYCIN HCL 1,000 MG, VIAL MATE ADAPTER 1 EACH in D5W 250 ML IV ONE ×2 (16:00→17:00)
--- NOTE | 2020-10-31 18:11 | REPVR ---
PROCEDURE INFORMATION: Exam: CT Abdomen And Pelvis Without Contrast Exam date and time: 10/31/2020 5:07 PM Age: 70 years old Clinical indication: Condition or disease; Other: Sepsis TECHNIQUE: Imaging protocol: Computed tomography of the abdomen and pelvis without contrast. Radiation optimization: All CT scans at this facility use at least one of these dose optimization techniques: automated exposure control; mA and/or kV adjustment per patient size (includes targeted exams where dose is matched to clinical indication); or iterative reconstruction. COMPARISON: 1. CT Spine, lumbar w/o contrast 11/29/2019 5:57:[address] Chest without contrast 11/30/2019 9:44:51 AM FINDINGS: Limitations: There is beam hardening artifact from bilateral arms down positioning. Liver: Normal. No mass. Gallbladder and bile ducts: Multiple small gallstones in the gallbladder. No evidence of biliary ductal dilatation. Pancreas: Diffuse pancreatic atrophy. Spleen: Small calcified granulomas in the spleen. Adrenal glands: Normal. No mass. Kidneys and ureters: Bilateral renal atrophy. No hydronephrosis. No ureteral calculi are seen. Stomach and bowel: There is no bowel dilatation to indicate obstruction. No pneumatosis. Scattered colonic diverticula without gross focal features of diverticulitis on this noncontrast study. Large amount of stool in the rectum. Marked rectal wall thickening, circumferential in the rectum, and more pronounced posteriorly and on the left at the anus. Minimal perirectal fat stranding. No obstructive changes seen proximal to this Appendix: Appendix not seen. Intraperitoneal space: See "Lymph nodes" finding. Vasculature: There is calcified atherosclerotic plaque in the abdominal aorta and medium-sized arteries in the abdomen and pelvis. No aortic aneurysm. Lymph nodes: Minimal haziness in the central and left mesenteric fat with multiple tiny mesenteric lymph nodes. No free air or free fluid. No enlarged lymph nodes. Urinary bladder: Unremarkable as visualized. Reproductive: Unremarkable as visualized. Bones/joints: No acute osseous abnormality. Multilevel degenerative disc and facet disease. This results in multilevel central canal and neural foraminal narrowing. Very large disc osteophyte complex posteriorly at T12-L1 again seen causing central canal narrowing which is worse on the right. Large posterior disc bulge particularly on the left in combination with facet and ligamentum flavum hypertrophy results in severe central canal narrowing at L3-L4, which may be slightly worsened compared to 11/29/2019. There is also severe central canal narrowing at L4-L5. Soft tissues: Nonspecific fat stranding and skin thickening in the abdominal wall pannus. Question multiple subcutaneous injections. Other findings: For findings in the lower chest, please refer to report for CT chest also performed today. IMPRESSION: 1. Marked rectal wall thickening which is circumferential superiorly, and more pronounced posteriorly and on the left at the anus. Findings may be from proctitis which appears severe. However, correlation with rectal examination suggested given the eccentric wall thickening in the anal region to exclude the less likely possibility of rectal/anal carcinoma. No obstructive changes are seen more suggestive of stercoral colitis, but there is a large amount of stool in the rectum. 2. Minimal haziness in the central and left mesenteric fat with multiple tiny mesenteric lymph nodes, most likely reactive changes either from the rectal/anal process, or minimal mesenteric adenitis/minimal enterocolitis. 3. Additional findings: Multilevel degenerative disc and facet disease with multilevel central canal and neural foraminal narrowing. Cholelithiasis. Nonspecific fat stranding and skin thickening in the abdominal wall pannus. Electronically signed by: Gardenia Ruggiero On 10/31/2020 18:10:41 PM
--- NOTE | 2020-10-31 18:27 | REPVR ---
PROCEDURE INFORMATION: Exam: CT Chest Without Contrast; Diagnostic Exam date and time: 10/31/2020 5:07 PM Age: 70 years old Clinical indication: Other: Sepsis TECHNIQUE: Imaging protocol: Diagnostic computed tomography of the chest without contrast. Radiation optimization: All CT scans at this facility use at least one of these dose optimization techniques: automated exposure control; mA and/or kV adjustment per patient size (includes targeted exams where dose is matched to clinical indication); or iterative reconstruction. COMPARISON: CT Chest without contrast 11/30/2019 9:44 AM FINDINGS: Limitations: There is beam hardening artifact from bilateral arms down positioning. Thyroid: Probable bilateral slightly hypodense thyroid nodules measuring 11 mm on the left and 10 mm on the right, better visualized than on 11/30/2019. Lungs: There is bibasilar discoid atelectasis or scar. Dense consolidation previously seen in the right upper lobe posterior inferiorly has partially resolved, with some residual nodular opacity. There is interval improvement in the additional smaller previously noted bilateral nodular infiltrates. There is new ground-glass opacity with geographic margins with upper to mid lung and slightly central predominance. A few patchy areas of interlobular septal thickening likely present. Question mild pulmonary edema or mild pneumonitis. There is central and particularly lower lobe bronchial wall thickening with multifocal mucous plugging in the lower lobes. This has significantly worsened or is new since 11/30/2019. Pleural space: Unremarkable. No pneumothorax. No pleural effusion. Heart: Heart size is mildly enlarged. Blood within the heart is relatively hypodense, suggesting anemia. There is calcification at the aortic valve and the mitral valve annulus. Coronary atherosclerosis is noted. Mediastinal space: There is diffuse esophageal wall thickening. Small hiatal hernia. Aorta: There is atherosclerotic calcification in the thoracic aorta. No thoracic aortic aneurysm. Lymph nodes: Unremarkable. No enlarged lymph nodes. Bones/joints: There is no acute osseous abnormality. Mild multilevel degenerative changes in the thoracic and lower cervical spine. Severe degenerative change at the left shoulder joint. Soft tissues: Unremarkable. Other findings: For findings in the upper abdomen, please refer to report for CT abdomen and pelvis also performed today. IMPRESSION: 1. While nodular infiltrates bilaterally have improved since the prior study, there is some residual ill-defined nodular opacity at the site of the prior largest infiltrate in the right upper lobe posterior inferiorly. Recommend follow-up to complete resolution. 2. New or significantly worsened central and particularly lower lobe bronchial wall thickening with multifocal mucous plugging in the lower lobes. Findings suggest bronchitis. A component of aspiration could be present. 3. Diffuse esophageal wall thickening suggesting esophagitis, with small hiatal hernia. 4. Question mild pulmonary edema or mild pneumonitis in the upper to mid lungs bilaterally. 5. Subtle slightly hypodense thyroid nodules likely present bilaterally measuring 11 mm on the left and 10 mm on the right, either new or better visualized compared to 11/30/2019. Six. Findings suggesting anemia. COMMENTS: Consistent with the [employer]'s Incidental Findings Committee white paper (J Am Zainab Radiol 2015): In patients aged 35 years and older with an incidental thyroid nodule equal to or greater than 1.[address], MRI or extrathyroidal US, further evaluation with dedicated thyroid US is recommended for patients with normal life expectancy and without comorbidities. For smaller nodules without suspicious features, no further evaluation or follow up is recommended. Electronically signed by: Gardenia Ruggiero On 10/31/2020 18:27:54 PM
[2020-10-31] MEDS ORDERED: GLUCAGON INJ 1MG VIAL SC PRN (19:00)
[2020-10-31] MEDS ORDERED: DOCUSATE SODIUM 100MG CAPSULE PO PRN (19:00)
[2020-10-31] MEDS ORDERED: ACETAMINOPHEN TAB 650MG DOSE (2X325MG) PO PRN (19:00)
[2020-10-31] MEDS ORDERED: GLUCOSE 4GM CHEW TABLET PO PRN (19:00)
[2020-10-31] MEDS ORDERED: DEXTROSE 50% 50 ML SYRINGE IV PRN (19:00)
--- NOTE | 2020-10-31 19:24 | REP ---
INDICATION: post line. COMPARISON: Earlier today TECHNIQUE: The technique utilized in obtaining the radiograph has magnified the cardiac silhouette and attenuated the interstitial markings. FINDINGS: There is cardiomegaly accentuated by technique status quo. Since last examination a right-sided internal jugular central venous catheter has been placed the tip of which is in the superior vena cava. There is no change in appearance of the lung ogden. There is no change in the osseous structures. IMPRESSION: 1. CVP catheter tip as described above. 2. No significant change in the lung ogden <Electronically signed by Ramirez Austin > 10/31/201919
[2020-10-31] MEDS ORDERED: VANCOMYCIN HCL 1,000 MG, VIAL MATE ADAPTER 1 EACH in D5W 250 ML IV SCH (20:15)
[2020-10-31] MEDS ORDERED: ENOXAPARIN 100MG/1ML SYRINGE (J1650 PER 10MG) SC SCH (20:15)
--- NOTE | 2020-10-31 20:28 | HPEPDOC ---
General Date of Admission Oct 31, 2020 at 18:53 Date of Service: Oct 31, 2020 Chief Complaint The patient is a 70-year-old female admitted with a reason for visit of Atrial Fibillation With Rvr/Sepsis/Cellulitis. Source: Family Exam Limitations: Other (Altered mental status) History of Present Illness Mrs. Muir is a 70 year old female with diabetes mellitus2, hypertension, diastolic CHF, and morbid obesity who comes to the hospital for altered mental status. Due to patient's altered mental status, unable to obtain history from patient. Patient's daughter, Amelia Muir, was contacted. Patient lives alone and independently. She manages her own medications. She said since the beginning of the week, she's been having dysuria with urinary frequency. This morning, daughter visited patient. Patient was so weak, she cannot help patient go to bathroom. Patient was then taken to the ED. His found to have A. fib with RVR. Heart rate was between 140s to 170s. Initially blood pressure was stable, but started to decline. Patient has no documentation of A. fib and is not on any anticoagulation. Daughter reports that she does not see a install and repair technician. In addition, patient had a fever of 100.4 and her right leg was warm, swollen, and tender. Patient will be admitted for sepsis and atrial fibrillation with RVR. While in the ED, her IV infiltrated and they were not able to start a new IV. She did not have antibiotics and she only had half a liter of fluids. I reached out to general surgery for placement of a central line. Home Medications Scheduled Allopurinol (Allopurinol) 100 Mg Tablet, 100 MG PO DAILY, (Reported) Aspirin (Aspirin EC) 81 Mg Tablet.dr, 81 MG PO DAILY, (Reported) Bupropion Hcl (Bupropion HCl Sr) 150 Mg Tab.sr.12h, 150 MG PO BID, (Reported) Calcitriol (Calcitriol) 0.25 Mcg Capsule, 0.25 MCG PO 3XW, (Reported) WED/WED/WED Fluoxetine Hcl (Fluoxetine HCl) 40 Mg Capsule, 40 MG PO DAILY, (Reported) Furosemide (Furosemide) 40 Mg Tablet, 40 MG PO BID, (Reported) Gabapentin (Gabapentin) 600 Mg Tablet, 600 MG PO TID, (Reported) Glipizide (Glipizide ER) 5 Mg Tab, 5 MG PO DAILY, (Reported) Magnesium Oxide (Magnesium Oxide) 400 Mg Tab, 400 MG PO 3XW, (Reported) WED, WED, WED Metoprolol Tartrate (Metoprolol Tartrate) 100 Mg Tablet, 100 MG PO DAILY, (Reported) Niacin (Niacin ER) 1,000 Mg Tab, 1,000 MG PO QHS, (Reported) Nitrofurantoin Macrocrystal (Nitrofurantoin) 100 Mg Capsule, 100 MG PO DAILY, (Reported) Simvastatin (Simvastatin) 20 Mg Tablet, 20 MG PO QHS, (Reported) Scheduled PRN Docusate Sodium (Docusate Sodium) 100 Mg Capsule, 100 MG PO BID PRN for CONSTIPATION, (Reported) Hydrocodone/Acetaminophen (Hydrocodone-Acetamin 5-325 mg) 1 Each Tablet, 1 TAB PO Q6H PRN for PAIN, (Reported) Allergies Coded Allergies: No Known Allergies (Verified Allergy, Unknown, 10/20/19) Past Medical History Medical History 1. Hypertension 2. Chronic kidney disease Stage 3 3. Diastolic CHF 4. Obstructive sleep apnea 5. Type 2 diabetes mellitus with peripheral neuropathy 6. Chronic back pain due to degenerative disk disease and spinal stenosis. 7. Morbid obesity with BMI of 48. 8. Venous insufficiency. 9. Depression. 10. Hypercholesterolemia. 11. History of gout and hyperuricemia. Surgical History 1. History of uterine cancer, status post ANNIE/BSO. 2. Status post appendectomy. 3. Tonsillectomy. 4. Right elbow surgery due to fracture. Family History Father: History cancer Mother: History of heart disease Social History * Smoker: non-smoker Alcohol: Denies Drugs: denies A-FIB/CHADSVASC A-FIB History Current/History of A-Fib/PAF?: Yes Current PO Anticoag Therapy: No Review of Systems Other systems Patient is a poor historian. Denies any symptoms. Denies fever, lightheadedness or dizziness, sore throat, chest pain, palpitations, dyspnea, abdominal pain, diarrhea, dysuria, rash, or pain. She denies having diarrhea, but while in the ED she had 4 episodes of diarrhea. She also denies having a rash, despite having a right leg rash. Physical Examination General Exam: Positive: Mild Distress Eye Exam: Positive: EOMI; Negative: Sclera icteric ENT Exam: Positive: Atraumatic Chest Exam: Positive: Clear to auscultation Heart Exam: Positive: Tachycardic, Irregular Rhythm Telemetry: Positive: Atrial fibrillation, Tachycardia Abdomen Exam: Positive: Normal bowel sounds, Soft; Negative: Tenderness Extremity Exam: Positive: Edema Skin Exam: Positive: Rash (right leg) Neuro Exam: Positive: Cranial Nerves 3-12 NL Psych Exam: Negative: Mental status NL Vital Signs Vital Signs Date Time Temp Pulse Resp B/P (MAP) Pulse Ox O2 Delivery O2 Flow Rate FiO2 10/31/20 18:00 93/55 (68) 10/31/20 17:52 98.8 143 20 94 10/31/20 11:57 Nasal Cannula 2.0 Laboratory Data Labs 24H Laboratory Tests 2 10/31/20 12:40: Coronavirus (COVID-19)(PCR) NEGATIVE, Influenza Type A (RT-PCR) NEGATIVE, Influenza Type B (RT-PCR) NEGATIVE, Respiratory Syncytial Virus (PCR) NEGATIVE 10/31/20 13:38: Immature Granulocyte % (Auto) , Neutrophils (%) (Auto) , Nucleated Red Blood Cells % (auto) 0.0, Neutrophils 44, Band Neutrophils 37H, Lymphocytes (Manual) 7L, Monocytes (Manual) 1, Metamyelocytes 8H, Myelocytes 3H, Macrocytosis 1+, Toxic Granulation 2+, Toxic Vacuolation 2+, Platelet Estimate DECREASED, Prothrombin Time 19.2H, Prothromb Time International Ratio 1.58, Activated Partial Thromboplast Time 25.2, Blood Gas Bicarbonate Standard 25.5, Venous Blood pH 7.338, Venous Blood Partial Pressure CO2 53.2H, Venous Blood Partial Pressure O2 79.7H, Venous Blood Total Carbon Dioxide 29.6H, Venous Blood HCO3 27.9H, Venous Blood Oxygen Saturation 95.2H, Venous Blood Base Excess 1.2, Anion Gap 9, Glomerular Filtration Rate 30.4L, Lactic Acid Level 4.4*H, Calcium Level 9.3, Total Bilirubin 1.1H, Direct Bilirubin 0.5H, Aspartate Amino Transf (AST/SGOT) 54H, Alanine Aminotransferase (ALT/SGPT) 34, Alkaline Phosphatase 100, Total Creatine Kinase 316H, Creatine Kinase MB 2.6, Creatine Kinase MB Relative Index 0.82, Troponin I < 0.02, C-Reactive Protein, Quantitative 28.40H, Total Protein 6.0L, Albumin 2.4L, Albumin/Globulin Ratio 0.7L CBC/BMP Laboratory Tests 10/31/20 13:38 Microbiology Microbiology 10/31/20 Blood Culture, Received Pending 10/31/20 Blood Culture, Received Pending Assessment/Plan Mrs. Muir is a 70 year old female with diabetes mellitus2, hypertension, diastolic CHF, and morbid obesity who comes to the hospital for altered mental status. She meets criteria for severe sepsis. Meets 3/3 qSOFA criteria (AMS, tachypnea, and hypotension) and 3/4 SIRs criteria (fever, tachycardia, and tachypnea). She has a lactic acidosis as well. Most likely source is right leg cellulitis, but with history of dysuria, she may also have a UTI. Plan / VTE VTE Prophylaxis Ordered?: Yes Plan Plan 1. Severe sepsis -3/3 qSOFA and 3/4 SIRs criteria + R leg cellulitis and possible UTI + lactic acidosis -30mL/kg of fluids. If does not appropriately respond she may need pressors. Central line placed since she is a hard stick -Being given Vancomycin and ceftriaxone in the ED -Will place patient on Vancomycin and Cefepime 2. R leg cellulitis -Right leg erythematous, warm, and tender -Vancomycin 3. Possible UTI -Per daughter, for the past week, patient reported dysuria and urinary frequently. Patient is on nitrofuranoin. -Pending UA -Cefepime 4. Atrial fibrillation with RVR -Due to hypotension and sepsis, no beta sheree or calcium channel sheree -May be secondary to fluid depletion -Fluids -Digoxin -Due to impaired renal function, will place patient on heparin drip 5. DM type 2 -Insulin sliding scale -Carbohydrate consistent diet 6. CKD stage 3 -Creatinine near baseline -IVF and supportive care 7. DVT ppx -On heparin drip per A.fib protocol SARA GILBERT DO Oct 31, 2020 20:28
[2020-10-31] MEDS ORDERED: HEPARIN SOD (PORCINE) 5000UNITS/ML 1ML VIAL/SYRINGE IV ONE (20:30)
[2020-10-31] MEDS ORDERED: HEPARIN SOD (PORCINE) 5000UNITS/ML 1ML VIAL/SYRINGE IV PRN (20:30)
[2020-10-31] MEDS: HumaLOG INSULIN (NovoLOG) PER UNIT SC SCH (21:00)
[2020-10-31 22:00] VITALS: BP 114/55
[2020-10-31] MEDS: DIGOXIN INJ 0.5 MG/2 ML AMP (J1160) IV SCH (22:52)
[2020-10-31] MEDS: NS 1,000 ML IV SCH (22:57)
[2020-10-31 23:00] VITALS: BP 127/54
[2020-10-31] MEDS: HEPARIN DRIP 25,000 UNITS in IV 1 EA IV SCH (23:05)
--- NOTE | 2020-10-31 23:16 | RO ---
OPERATIVE NOTE DATE OF OPERATION: 10/31/2020 PREOPERATIVE DIAGNOSIS: I.V. access needed for fluid resuscitation associated with sepsis. POSTOPERATIVE DIAGNOSIS: I.V. access needed for fluid resuscitation associated with sepsis. PROCEDURE: Right internal jugular central line placement. SURGEON: Joey Pearson M.D. ANESTHESIA: Local. ESTIMATED BLOOD LOSS: Minimal. FLUIDS: Crystalloid. BRIEF PROCEDURE SUMMARY: The patient was left in the Emergency Room bed in critical care given significant hypotension. The patient was verbally asked for consent to proceed with a right internal jugular central line placement. She states she has had one in the past, understands the procedure, and would like to proceed with central line placement. PROCEDURE: The patient was placed in the Trendelenburg position and the ultrasound was used to identify the internal jugular vein in its location in comparison to the sternocleidomastoid given its location. The patient was prepped and draped in the usual sterile fashion. Local Lidocaine was infiltrated into the skin overlying the internal jugular at the apex of the sternocleidomastoid muscle belly and the finder needle was placed into the vein without difficulty. Wire was placed through this. The dilator was placed over the wire and then the catheter was placed at 17 cm. The central line was sutured into place. All ports aspirated and flushed without difficulty. The patient was to receive a chest x-ray. Dressing was applied. Patient was taken out of the Trendelenburg, and was hemodynamically stable throughout the procedure.
[2020-11-01] VITALS (16 sets, daily range): BP systolic 78–130; BP diastolic 43–61
[2020-11-01] MEDS ORDERED: VANCOMYCIN HCL 750 MG, VIAL MATE ADAPTER 1 EACH in D5W 250 ML IV SCH ×3
[2020-11-01] MEDS ORDERED: CEFEPIME HCL 1 GM in D5W MINI-BAG PLUS 50 ML IV SCH (01:00)
[2020-11-01] MEDS: CEFEPIME HCL 1 GM in D5W MINI-BAG PLUS 50 ML IV SCH ×2 (01:58→13:57)
[2020-11-01] MEDS ORDERED: METOPROLOL 5 MG/5 ML VIAL IV ONE (02:30)
[2020-11-01] MEDS ORDERED: NS 500 ML IV ONE ×3 (03:15→04:15)
[2020-11-01] MEDS: DIGOXIN INJ 0.5 MG/2 ML AMP (J1160) IV SCH (05:04)
[2020-11-01 05:20] LABS: HEMATOCRIT 30.5 % (36.0-47.0); MEAN CORPUSCULAR HEMOGLOBIN 32.8 pg (27.0-33.0); MEAN CORPUSCULAR HGB CONC 31.8 g/dl (32.0-36.5); PLATELET COUNT, AUTOMATED 117 10^3/uL (150-450); RED BLOOD COUNT 2.96 10^6/uL (4.00-5.40); WHITE BLOOD COUNT 10.9 10^3/uL (4.0-10.0)
[2020-11-01 05:44] LABS: CALCIUM LEVEL 7.7 MG/DL (8.8-10.2); CREATININE FOR GFR 1.67 MG/DL (0.55-1.30); GLOMERULAR FILTRATION RATE 32.5 (>45); MAGNESIUM LEVEL 1.5 MG/DL (1.8-2.4); POTASSIUM SERUM 3.3 MEQ/L (3.5-5.1)
[2020-11-01 05:50] LABS: HEMOGLOBIN 9.7 g/dl (12.0-15.5)
[2020-11-01 05:53] LABS: FREE T3 < 0.5 PG/ML (2.2-4.0)
[2020-11-01] MEDS: NS 1,000 ML IV SCH ×2 (06:44→15:15)
[2020-11-01] MEDS: MAG SULF 1GM/100ML (MAG RUN) 1 GM in IV 1 EA IV SCH ×3 (06:45→11:02)
[2020-11-01] MEDS: POTASSIUM CHLORIDE 10 MEQ SR TABLET PO SCH ×2 (06:45→09:36)
[2020-11-01] MEDS: HumaLOG INSULIN (NovoLOG) PER UNIT SC SCH ×4 (07:30→21:00)
--- NOTE | 2020-11-01 08:39 | ECGEPIP ---
[facility] - ED Test Date: 2020-10-31 Pat Name: MARTHA ARENAS Department: Room: - Gender: Female Morgue Technician: : [id number] Requested By: GILMAR GRAHAM Order Number: [id number] Reading MD: Laura Smith Measurements Intervals [place] Rate: 154 P: VA: 0 QRS: 7 QRSD: 93 T: 162 QT: 269 QTc: 431 Interpretive Statements ATRIAL FIBRILLATION WITH RAPID VENTRICULAR RESPONSE NONSPECIFIC ST & T-WAVE ABNORMALITY Electronically Signed on 11-01-2020 8:38:59 EST by Laura Smith
[2020-11-01] MEDS: FLUoxetine 20 MG CAP PO SCH (09:37)
[2020-11-01] MEDS: CALCITRIOL 0.25 MCG CAP (S0169) PO SCH (09:37)
[2020-11-01] MEDS: ASPIRIN 81 MG ENTERIC TAB PO SCH (09:37)
--- NOTE | 2020-11-01 10:35 | IPNPDOC ---
Subjective Date Seen The patient was seen on 11/01/20. Subjective Chief Complaint/HPI Mrs. Muir is a 70 year old female with diabetes mellitus type 2, hypertension, diastolic CHF, and morbid obesity who comes to the hospital for altered mental status and found to have severe sepsis. Overnight, her heart rate became controlled with fluids and digoxin. Her afib converted to NSR at 3AM. This morning, she was feeling better. Denies fever, chest pain, dyspnea, or abdominal pain. Objective Physical Examination General Exam: Positive: Mild Distress Eye Exam: Positive: EOMI; Negative: Sclera icteric ENT Exam: Positive: Atraumatic Chest Exam: Positive: Clear to auscultation Heart Exam: Positive: Tachycardic, Irregular Rhythm Telemetry: Positive: Atrial fibrillation, Tachycardia Abdomen Exam: Positive: Normal bowel sounds, Soft; Negative: Tenderness Extremity Exam: Positive: Edema Skin Exam: Positive: Rash (right leg) Neuro Exam: Positive: Cranial Nerves 3-12 NL Psych Exam: Negative: Mental status NL Assessment /Plan Assessment Mrs. Muir is a 70 year old female with diabetes mellitus2, hypertension, diastolic CHF, and morbid obesity who comes to the hospital for altered mental status. She meets criteria for severe sepsis. Meets 3/3 qSOFA criteria (AMS, tachypnea, and hypotension) and 3/4 SIRs criteria (fever, tachycardia, and tachypnea). She has a lactic acidosis as well. Most likely source is right leg cellulitis, but with history of dysuria, she may also have a UTI. Will empirically treat for UTI and cellulitis. Otherwise, she has atrial fibrillation which may have been precipitated by the sepsis. Converted to sinus rhythm with fluids and digoxin. Continue to monitor on tele, heparin drip for AC. Plan/VTE VTE Prophylaxis Ordered?: Yes Plan 1. Severe sepsis -3/3 qSOFA and 3/4 SIRs criteria + R leg cellulitis and possible UTI + lactic acidosis -30mL/kg of fluids. If does not appropriately respond she may need pressors. Central line placed since she is a hard stick -On Vancomycin and Cefepime -Has not needed pressers 2. R leg cellulitis -Right leg erythematous, warm, and tender -Vancomycin 3. Possible UTI -Per daughter, for the past week, patient reported dysuria and urinary frequently. Patient is on nitrofuranoin. -Pending UA -Cefepime 4. Atrial fibrillation with RVR -Due to hypotension and sepsis, no beta sheree or calcium channel sheree -May be secondary to fluid depletion -Loaded with digoxin -Resolved and converted to NSR -Due to impaired renal function, will place patient on heparin drip -Paroxysmal atrial fibrillation. When renal function improves, consider Eliquis for AC. May not be able to be compliant with Warfarin 5. DM type 2 -Insulin sliding scale -Carbohydrate consistent diet 6. CKD stage 3 -IVF and supportive care 7. DVT ppx -On heparin drip per A.fib protocol VS, I&O, 24H, Fishbone Vital Signs/I&O Vital Signs Date Time Temp Pulse Resp B/P (MAP) Pulse Ox O2 Delivery O2 Flow Rate FiO2 11/01/20 06:00 87 89/52 (64) 98 Nasal Cannula 3.0 11/01/20 04:00 98.9 18 I&O- Last 24 Hours up to 6 AM 11/01/20 06:00 Intake Total 1875 ml Balance 1875 ml Laboratory Data 24H LABS Laboratory Tests 2 10/31/20 12:40: Coronavirus (COVID-19)(PCR) NEGATIVE, Influenza Type A (RT-PCR) NEGATIVE, Influenza Type B (RT-PCR) NEGATIVE, Respiratory Syncytial Virus (PCR) NEGATIVE 10/31/20 13:38: Immature Granulocyte % (Auto) , Neutrophils (%) (Auto) , Nucleated Red Blood Cells % (auto) 0.0, Neutrophils 44, Band Neutrophils 37H, Lymphocytes (Manual) 7L, Monocytes (Manual) 1, Metamyelocytes 8H, Myelocytes 3H, Macrocytosis 1+, Toxic Granulation 2+, Toxic Vacuolation 2+, Platelet Estimate DECREASED, Prothrombin Time 19.2H, Prothromb Time International Ratio 1.58, Activated Partial Thromboplast Time 25.2, Blood Gas Bicarbonate Standard 25.5, Venous Blood pH 7.338, Venous Blood Partial Pressure CO2 53.2H, Venous Blood Partial Pressure O2 79.7H, Venous Blood Total Carbon Dioxide 29.6H, Venous Blood HCO3 27.9H, Venous Blood Oxygen Saturation 95.2H, Venous Blood Base Excess 1.2, Anion Gap 9, Glomerular Filtration Rate 30.4L, Lactic Acid Level 4.4*H, Calcium Level 9.3, Total Bilirubin 1.1H, Direct Bilirubin 0.5H, Aspartate Amino Transf (AST/SGOT) 54H, Alanine Aminotransferase (ALT/SGPT) 34, Alkaline Phosphatase 100, Total Creatine Kinase 316H, Creatine Kinase MB 2.6, Creatine Kinase MB Relative Index 0.82, Troponin I < 0.02, C-Reactive Protein, Quantitative 28.40H, Total Protein 6.0L, Albumin 2.4L, Albumin/Globulin Ratio 0.7L 10/31/20 19:49: Lactic Acid Level 2.6*H 10/31/20 21:51: Activated Partial Thromboplast Time 36.7 10/31/20 22:36: Bedside Glucose (Misc Panel) 89 11/01/20 00:15: Lactic Acid Followup at 4 Hours 2.0 11/01/20 05:08: Nucleated Red Blood Cells % (auto) 0.0, Activated Partial Thromboplast Time 187.1*H, Anion Gap 5L, Glomerular Filtration Rate 32.5L, Calcium Level 7.7#L, Magnesium Level 1.5L, Thyroid Stimulating Hormone (TSH) 2.040, Free Thyroxine 1.00, Free Triiodothyronine < 0.5L CBC/BMP Laboratory Tests 10/31/20 13:38 11/01/20 05:08 Microbiology Microbiology 10/31/20 Blood Culture, Received Pending 10/31/20 Blood Culture, Received Pending SARA GILBERT DO Nov 01, 2020 10:35
[2020-11-01 11:54] LABS: HEMATOCRIT 31.4 % (36.0-47.0); HEMOGLOBIN 9.9 g/dl (12.0-15.5); MEAN CORPUSCULAR HEMOGLOBIN 32.6 pg (27.0-33.0); MEAN CORPUSCULAR HGB CONC 31.5 g/dl (32.0-36.5); MEAN CORPUSCULAR VOLUME 103.3 fl (80.0-96.0); PLATELET COUNT, AUTOMATED 123 10^3/uL (150-450); RED BLOOD COUNT 3.04 10^6/uL (4.00-5.40); WHITE BLOOD COUNT 12.8 10^3/uL (4.0-10.0)
[2020-11-01] MEDS ORDERED: HEPARIN SOD (PORCINE) 5000UNITS/ML 1ML VIAL/SYRINGE IV ONE (20:30)
[2020-11-01] MEDS: VANCOMYCIN HCL 750 MG, VIAL MATE ADAPTER 1 EACH in D5W 250 ML IV SCH ×2 (20:50→23:06)
[2020-11-01] MEDS: HEPARIN DRIP 25,000 UNITS in IV 1 EA IV SCH (23:11)
[2020-11-02] VITALS: BP 127/60
[2020-11-02] MEDS: CEFEPIME HCL 1 GM in D5W MINI-BAG PLUS 50 ML IV SCH ×2 (01:27→14:33)
[2020-11-02] MEDS: NS 1,000 ML IV SCH (01:30)
[2020-11-02 03:14] LABS: HEMATOCRIT 29.8 % (36.0-47.0); HEMOGLOBIN 9.7 g/dl (12.0-15.5); MEAN CORPUSCULAR HEMOGLOBIN 32.9 pg (27.0-33.0); MEAN CORPUSCULAR HGB CONC 32.6 g/dl (32.0-36.5); PLATELET COUNT, AUTOMATED 115 10^3/uL (150-450); RED BLOOD COUNT 2.95 10^6/uL (4.00-5.40); WHITE BLOOD COUNT 12.5 10^3/uL (4.0-10.0)
[2020-11-02 03:34] LABS: CALCIUM LEVEL 7.9 MG/DL (8.8-10.2); CREATININE FOR GFR 1.63 MG/DL (0.55-1.30); GLOMERULAR FILTRATION RATE 33.4 (>45); POTASSIUM SERUM 3.6 MEQ/L (3.5-5.1)
[2020-11-02 04:00] VITALS: BP 123/58
[2020-11-02 08:00] VITALS: BP 142/66
[2020-11-02] MEDS: HumaLOG INSULIN (NovoLOG) PER UNIT SC SCH ×4 (09:51→20:18)
[2020-11-02] MEDS: METOPROLOL TART 12.5 MG PER 1/2 TAB PO SCH ×2 (09:52→20:18)
[2020-11-02] MEDS: CYANOCOBALAMIN 500 MCG TAB PO SCH (09:52)
[2020-11-02] MEDS: THIAMINE 100 MG TAB PO SCH (09:53)
[2020-11-02] MEDS: ASPIRIN 81 MG ENTERIC TAB PO SCH (09:53)
[2020-11-02] MEDS: FLUoxetine 20 MG CAP PO SCH (09:53)
--- NOTE | 2020-11-02 15:42 | IPNPDOC ---
Subjective Date Seen The patient was seen on 11/02/20. Subjective Chief Complaint/HPI Mrs. Muir is a 70 year old female with diabetes mellitus type 2, hypertension, diastolic CHF, and morbid obesity who comes to the hospital for altered mental status and found to have severe sepsis. Today, she is feeling better. Denies fever, chest pain, dyspnea, abdominal pain, or dysuria. She reports tenderness of right leg where she has her cellulitis. Left leg is non- tender. Physical therapy evaluated her, she will need rehab. Patient understands that she is too weak to stand and is agreeable to rehab. Objective Physical Examination General Exam: Positive: Cooperative Eye Exam: Positive: EOMI; Negative: Sclera icteric ENT Exam: Positive: Atraumatic Chest Exam: Positive: Clear to auscultation Heart Exam: Positive: Tachycardic, Irregular Rhythm Telemetry: Positive: Atrial fibrillation, Tachycardia Abdomen Exam: Positive: Normal bowel sounds, Soft; Negative: Tenderness Extremity Exam: Positive: Edema Skin Exam: Positive: Rash (right leg) Neuro Exam: Positive: Cranial Nerves 3-12 NL Psych Exam: Positive: Mood NL Assessment /Plan Assessment Mrs. Muir is a 70 year old female with diabetes mellitus2, hypertension, diastolic CHF, and morbid obesity who comes to the hospital for altered mental status. She meets criteria for severe sepsis. Meets 3/3 qSOFA criteria (AMS, tachypnea, and hypotension) and 3/4 SIRs criteria (fever, tachycardia, and tachypnea). She has a lactic acidosis as well. Most likely source is right leg cellulitis, but with history of dysuria for the past week, she most likely has a UTI. Will empirically treat for UTI and cellulitis. Otherwise, she has atrial fibrillation which may have been precipitated by the sepsis. Converted to sinus rhythm with fluids and loading dose digoxin. Switch to Metoprolol for rate control. Will switch heparin drip to Eliquis. Plan/VTE VTE Prophylaxis Ordered?: Yes Plan 1. Severe sepsis -3/3 qSOFA and 3/4 SIRs criteria + R leg cellulitis and possible UTI + lactic acidosis -30mL/kg of fluids and she responded to fluids. No pressers -On Vancomycin and Cefepime 2. R leg cellulitis -Right leg erythematous, warm, and tender -Vancomycin 3. Possible UTI -Per daughter, for the past week, patient reported dysuria and urinary frequently. Patient is on nitrofuranoin. -Switched to cefepime 4. Atrial fibrillation with RVR -Due to hypotension and sepsis, no beta sheree or calcium channel sheree -May be secondary to fluid depletion -Loaded with digoxin -Resolved and converted to NSR -Switch heparin drip to Eliquis. May not be able to be compliant with Warfarin 5. DM type 2 -Insulin sliding scale -Carbohydrate consistent diet 6. CKD stage 3 -IVF and supportive care 7. DVT ppx -Switching to Eliquis Disposition: Unable to stand with physical therapy. Placed order for ARU screen VS, I&O, 24H, Fishbone Vital Signs/I&O Vital Signs Date Time Temp Pulse Resp B/P (MAP) Pulse Ox O2 Delivery O2 Flow Rate FiO2 11/02/20 09:52 91 142/66 11/02/20 08:00 98.1 17 98 Room Air 11/01/20 12:00 1.0 I&O- Last 24 Hours up to 6 AM 11/02/20 06:00 Intake Total 700 ml Output Total 600 ml Balance 100 ml Laboratory Data 24H LABS Laboratory Tests 2 11/01/20 18:20: Activated Partial Thromboplast Time 52.5H 11/01/20 21:13: Bedside Glucose (Misc Panel) 73L 11/02/20 02:59: Activated Partial Thromboplast Time 92.3H, Nucleated Red Blood Cells % (auto) 0.0, Anion Gap 4L, Glomerular Filtration Rate 33.4L, Calcium Level 7.9L 11/02/20 09:06: Activated Partial Thromboplast Time 80.7H 11/02/20 11:50: Bedside Glucose (Misc Panel) 79L CBC/BMP Laboratory Tests 11/02/20 02:59 Microbiology Microbiology 10/31/20 Blood Culture - Preliminary, Resulted No Growth after 48 hours. All Specime... 10/31/20 Blood Culture - Preliminary, Resulted No Growth after 48 hours. All Specime... SARA GILBERT DO Nov 02, 2020 15:42
[2020-11-02 20:00] VITALS: BP 143/67
[2020-11-02] MEDS: VANCOMYCIN HCL 750 MG, VIAL MATE ADAPTER 1 EACH in D5W 250 ML IV SCH ×2 (20:17→21:51)
[2020-11-02] MEDS: APIXABAN 5 MG TAB (ELIQUIS) PO SCH (20:17)
[2020-11-03] VITALS: BP 144/67
[2020-11-03] MEDS: CEFEPIME HCL 1 GM in D5W MINI-BAG PLUS 50 ML IV SCH ×2 (02:40→14:25)
[2020-11-03 04:00] VITALS: BP 130/66
[2020-11-03 06:15] LABS: HEMATOCRIT 29.9 % (36.0-47.0); HEMOGLOBIN 9.8 g/dl (12.0-15.5); MEAN CORPUSCULAR HGB CONC 32.8 g/dl (32.0-36.5); MEAN CORPUSCULAR VOLUME 100.7 fl (80.0-96.0); PLATELET COUNT, AUTOMATED 123 10^3/uL (150-450); RED BLOOD COUNT 2.97 10^6/uL (4.00-5.40); WHITE BLOOD COUNT 8.5 10^3/uL (4.0-10.0)
[2020-11-03 06:28] LABS: CALCIUM LEVEL 8.2 MG/DL (8.8-10.2); CREATININE FOR GFR 1.38 MG/DL (0.55-1.30); GLOMERULAR FILTRATION RATE 40.5 (>45); POTASSIUM SERUM 3.7 MEQ/L (3.5-5.1)
[2020-11-03] MEDS: HumaLOG INSULIN (NovoLOG) PER UNIT SC SCH ×3 (07:30→17:30)
[2020-11-03 08:00] VITALS: BP 140/70
[2020-11-03] MEDS: METOPROLOL TART 12.5 MG PER 1/2 TAB PO SCH (10:15)
[2020-11-03] MEDS: ASPIRIN 81 MG ENTERIC TAB PO SCH (10:16)
[2020-11-03] MEDS: CYANOCOBALAMIN 500 MCG TAB PO SCH (10:16)
[2020-11-03] MEDS: FLUoxetine 20 MG CAP PO SCH (10:16)
[2020-11-03] MEDS: APIXABAN 5 MG TAB (ELIQUIS) PO SCH ×2 (10:16→20:01)
[2020-11-03] MEDS: THIAMINE 100 MG TAB PO SCH (10:16)
[2020-11-03] MEDS ORDERED: SLF 3 ML SYR IV PRN (11:45)
--- NOTE | 2020-11-03 12:28 | IPNPDOC ---
Subjective Date Seen The patient was seen on 11/03/20. Subjective Chief Complaint/HPI Mrs. Muir is a 70 year old female with diabetes mellitus type 2, hypertension, diastolic CHF, and morbid obesity who comes to the hospital for altered mental status and found to have severe sepsis. Her right leg is not tender today. Denies fever, chest pain, dyspnea, abdominal pain, or dysuria. She will need rehab, ARU to screen. Objective Physical Examination General Exam: Positive: Cooperative Eye Exam: Positive: EOMI; Negative: Sclera icteric ENT Exam: Positive: Atraumatic Chest Exam: Positive: Clear to auscultation Heart Exam: Positive: Tachycardic, Irregular Rhythm Telemetry: Positive: Atrial fibrillation, Tachycardia Abdomen Exam: Positive: Normal bowel sounds, Soft; Negative: Tenderness Extremity Exam: Positive: Edema Skin Exam: Positive: Rash (right leg) Neuro Exam: Positive: Cranial Nerves 3-12 NL Psych Exam: Positive: Mood NL Assessment /Plan Assessment Mrs. Muir is a 70 year old female with diabetes mellitus2, hypertension, diastolic CHF, and morbid obesity who comes to the hospital for altered mental status. She meets criteria for severe sepsis. Meets 3/3 qSOFA criteria (AMS, tachypnea, and hypotension) and 3/4 SIRs criteria (fever, tachycardia, and tachypnea). She has a lactic acidosis as well. Most likely source is right leg cellulitis, but with history of dysuria for the past week, she most likely has a UTI. Will empirically treat for UTI and cellulitis. Otherwise, she has atrial fibrillation which may have been precipitated by the sepsis. Converted to sinus rhythm with fluids and loading dose digoxin. Switch to Metoprolol for rate control. Will switch heparin drip to Eliquis. Plan/VTE VTE Prophylaxis Ordered?: Yes Plan 1. Severe sepsis -3/3 qSOFA and 3/4 SIRs criteria + R leg cellulitis and possible UTI + lactic acidosis -30mL/kg of fluids and she responded to fluids. No pressers -On Vancomycin and Cefepime 2. R leg cellulitis -Right leg erythematous, warm, and tender -Vancomycin 3. Possible UTI -Per daughter, for the past week, patient reported dysuria and urinary frequently. Patient is on nitrofuranoin. -Switched to cefepime 4. Atrial fibrillation with RVR -Due to hypotension and sepsis, no beta sheree or calcium channel sheree -May be secondary to fluid depletion -Loaded with digoxin -Resolved and converted to NSR -Switch heparin drip to Eliquis. May not be able to be compliant with Warfarin -Lopressor for rate control 5. DM type 2 -Insulin sliding scale -Carbohydrate consistent diet 6. CKD stage 3 -IVF and supportive care 7. DVT ppx -Eliquis Disposition: Unable to stand with physical therapy. ARU screen has been ordered VS, I&O, 24H, Fishbone Vital Signs/I&O Vital Signs Date Time Temp Pulse Resp B/P (MAP) Pulse Ox O2 Delivery O2 Flow Rate FiO2 11/03/20 10:15 90 140/70 11/03/20 08:00 98.5 18 97 Room Air 11/01/20 12:00 1.0 I&O- Last 24 Hours up to 6 AM 11/03/20 06:00 Intake Total 1298 ml Output Total 550 ml Balance 748 ml Laboratory Data 24H LABS Laboratory Tests 2 11/02/20 17:20: Bedside Glucose (Misc Panel) 78L 11/02/20 19:56: Bedside Glucose (Misc Panel) 86 11/03/20 05:37: Nucleated Red Blood Cells % (auto) 0.0, Anion Gap 4L, Glomerular Filtration Rate 40.5L, Calcium Level 8.2L, Random Vancomycin Level 28.0 11/03/20 11:33: Bedside Glucose (Misc Panel) 120H CBC/BMP Laboratory Tests 11/03/20 05:37 Microbiology Microbiology 10/31/20 Blood Culture - Preliminary, Resulted No Growth after 48 hours. All Specime... 10/31/20 Blood Culture - Preliminary, Resulted No Growth after 48 hours. All Specime... SARA GILBERT DO Nov 03, 2020 12:28
[2020-11-03 12:49] LABS: MAGNESIUM LEVEL 2.1 MG/DL (1.8-2.4)
[2020-11-03 14:00] VITALS: BP 141/72
[2020-11-03] MEDS: SLF 3 ML SYR IV SCH ×2 (14:25→21:31)
[2020-11-03] MEDS: METOPROLOL TART 25 MG TABLET PO SCH (20:01)
[2020-11-03] MEDS: VANCOMYCIN HCL 750 MG, VIAL MATE ADAPTER 1 EACH in D5W 250 ML IV SCH ×2 (20:02→21:29)
[2020-11-03 22:00] VITALS: BP 142/68
[2020-11-04] MEDS: CEFEPIME HCL 1 GM in D5W MINI-BAG PLUS 50 ML IV SCH (02:10)
[2020-11-04 05:57] LABS: HEMATOCRIT 29.3 % (36.0-47.0); HEMOGLOBIN 9.8 g/dl (12.0-15.5); MEAN CORPUSCULAR HGB CONC 33.4 g/dl (32.0-36.5); MEAN CORPUSCULAR VOLUME 98.7 fl (80.0-96.0); PLATELET COUNT, AUTOMATED 133 10^3/uL (150-450); RED BLOOD COUNT 2.97 10^6/uL (4.00-5.40); WHITE BLOOD COUNT 9.4 10^3/uL (4.0-10.0)
[2020-11-04] MEDS: SLF 3 ML SYR IV SCH ×3 (05:57→20:59)
[2020-11-04 06:00] VITALS: BP 141/66
[2020-11-04 06:29] LABS: CREATININE FOR GFR 1.25 MG/DL (0.55-1.30); GLOMERULAR FILTRATION RATE 45.4 (>45); POTASSIUM SERUM 3.7 MEQ/L (3.5-5.1)
[2020-11-04] MEDS: FLUoxetine 20 MG CAP PO SCH (08:23)
[2020-11-04] MEDS: ASPIRIN 81 MG ENTERIC TAB PO SCH (08:24)
[2020-11-04] MEDS: THIAMINE 100 MG TAB PO SCH (08:24)
[2020-11-04] MEDS: CYANOCOBALAMIN 500 MCG TAB PO SCH (08:24)
[2020-11-04] MEDS: CALCITRIOL 0.25 MCG CAP (S0169) PO SCH (08:24)
[2020-11-04] MEDS: APIXABAN 5 MG TAB (ELIQUIS) PO SCH ×2 (08:24→20:58)
[2020-11-04] MEDS: METOPROLOL TART 25 MG TABLET PO SCH ×2 (08:25→20:58)
[2020-11-04] MEDS ORDERED: DOXYCYCLINE HYCLATE 100MG TABLET PO SCH (09:45)
--- NOTE | 2020-11-04 10:18 | ECHO ---
DATE OF PROCEDURE: 11/01/2020 Age: 70 Gender: Female REFERRING PHYSICIAN: Bharat Burns DO PATIENT LOCATION: [id number] REASON FOR THE STUDY: Atrial fibrillation, sepsis. MEASUREMENTS: 2D measurements: IVS 1.2 cm LV 4.6 cm LVPW 1.2 cm LA 4.1 cm Aorta 2.9 cm IVC 2.7 cm DOPPLER MEASUREMENT: Peak velocity across the aortic valve 1.7 m/s Peak velocity across the LVOT 1.0 m/s Mitral E 0.95, mitral A 0.86 with a ratio of 1.1 2D COMMENTS: 1. Normal left ventricular size, wall thickness and normal global left ventricular systolic function. Estimated left ventricular systolic ejection fraction is 60 to 65%. 2. Mildly enlarged left atrium. The right atrium and the left ventricle appear to be normal. 3. The atrial septum appears to be normal without evidence of defect or shunt. 4. Normal aortic root. 5. No pericardial effusion is seen. 6. Minimally calcified aortic valve with normal leaflet excursion. Minimally calcified mitral annulus with normal mitral leaflet motion. Normal tricuspid valve and pulmonic valve. The proximal pulmonary artery branches also appear to be normal in limited views. 7. The inferior vena cava was dilated, central venous pressure might be elevated. Doppler: No significant valvular abnormalities detected. Abnormal relaxation pattern was noted across the mitral valve annulus consistent with features of grade 2 left ventricular diastolic dysfunction. IMPRESSION: 1. Normal global left ventricular systolic function. There are some features of left ventricular diastolic dysfunction, grade 2. 2. The inferior vena cava was mildly enlarged, central venous pressure might be elevated. 3. No valvular heart disease detected, but aortic valve sclerosis and mitral annulus calcification. MTDD
--- NOTE | 2020-11-04 10:21 | IPNPDOC ---
Text Note Date of Service The patient was seen on 11/04/20. NOTE SUBJECTIVE: Patient was seen and examined this morning at bedside. She states she is feeling much improved since she was admitted to the hospital. No fevers overnight. No pain. She understands she would benefit from rehab prior to returning home and agrees to this plan OBJECTIVE: VITAL SIGNS: See below GENERAL: Alert, comfortable, in no acute distress HEENT: Normocephalic, atraumatic, EOMI, moist mucous membranes CARDIOVASCULAR: Regular rate and rhythm, normal S1 and S2. No murmurs, rubs, or gallops RESPIRATORY: Clear to auscultation bilaterally with equal air entry bilaterally. No wheezing, rhonchi, or rales. ABDOMEN: Obese, soft, nontender, nondistended, bowel sounds present EXTREMITIES: Bilateral LE edema up to the knees, 2+ on the right and 1+ on the left SKIN: Erythema and warmth over the right anterior calf NEUROLOGIC: Alert and oriented x3 to person, place and time. No focal deficits appreciated PSYCHIATRIC: Mood and affect appropriate ASSESSMENT/PLAN: 70F who presented with altered mental status found to have severe sepsis secondary to R leg cellulitis vs UTI, also found to be in atrial fibrillation with RVR admitted for IV antibiotics, IV fluids, and heart rate control. # Severe sepsis, resolved -on presentation 3/3 qSOFA and 3/4 SIRs criteria + R leg cellulitis and possible UTI + lactic acidosis -30mL/kg of fluids and she responded to fluids. No pressers -On abx coverage as noted below # R leg cellulitis -Right leg erythematous, warm, and tender -Vancomycin IV x 4 days. Switch to doxycycline PO. # Possible UTI -Per daughter, patient reported dysuria and urinary frequently. Started on nitrofuranoin outpatient. -Switched to cefepime IV x4 days with improvement. -Switch to levofloxacin PO for abx coverage # Chronic atrial fibrillation -initially presented with a fib with RVR, likely due to hypotension and sepsis -s/p digoxin, now converted to NSR. -Lopressor for rate control. Eliquis for anticoagulation. # DM type 2 - Hold home meds. Insulin sliding scale ACHS while inpatient. Hypoglycemic protocol - Carbohydrate consistent diet # CKD stage 3 - trend BMP daily DVT prophylaxis: on full anticoagulation with Eliquis Disposition: pending ARU screen vs other rehab placement VS,[place], I+O VS, Fishbone, I+O Laboratory Tests 11/04/20 05:30 Vital Signs Date Time Temp Pulse Resp B/P (MAP) Pulse Ox O2 Delivery O2 Flow Rate FiO2 11/04/20 08:25 85 162/75 11/04/20 06:00 98.9 20 94 Room Air 11/01/20 12:00 1.0 I&O- Last 24 Hours up to 6 AM 11/04/20 06:00 Intake Total 1370 ml Output Total 850 ml Balance 520 ml GME ATTESTATION GME ATTESTATION My faculty preceptor for this patient encounter was physically present during the encounter and was fully available. All aspects of the patient interview, examination, medical decision making process, and medical care plan development were reviewed and approved by the faculty preceptor. The faculty preceptor is aware and concurs with the plan as stated in the body of this note and will attest to such by his/her cosignature. ATTENDING NOTE I, Bharat Burns, saw and evaluated the patient. I agree with the finding and the plan of care as documented in the resident note. BETTINA ANTOINE D.O. Nov 04, 2020 10:21 BHARAT BURNS DO Nov 04, 2020 16:27
[2020-11-04] MEDS: LevoFLOXacin 250 MG TABLET PO SCH (10:43)
[2020-11-04] MEDS: DOXYCYCLINE HYCLATE 100MG TABLET PO SCH ×2 (10:43→20:58)
[2020-11-04 14:00] VITALS: BP 151/70
[2020-11-04 22:00] VITALS: BP 147/7
[2020-11-05 06:00] VITALS: BP 138/62
[2020-11-05] MEDS: LevoFLOXacin 250 MG TABLET PO SCH (06:33)
[2020-11-05] MEDS: SLF 3 ML SYR IV SCH (06:34)
[2020-11-05 07:44] LABS: HEMATOCRIT 31.1 % (36.0-47.0); MEAN CORPUSCULAR HEMOGLOBIN 32.2 pg (27.0-33.0); MEAN CORPUSCULAR HGB CONC 32.2 g/dl (32.0-36.5); PLATELET COUNT, AUTOMATED 180 10^3/uL (150-450); RED BLOOD COUNT 3.11 10^6/uL (4.00-5.40)
[2020-11-05 07:55] LABS: CALCIUM LEVEL 8.4 MG/DL (8.8-10.2); CREATININE FOR GFR 1.06 MG/DL (0.55-1.30); GLOMERULAR FILTRATION RATE 54.9 (>45); POTASSIUM SERUM 3.9 MEQ/L (3.5-5.1)
[2020-11-05] MEDS: CYANOCOBALAMIN 500 MCG TAB PO SCH (08:12)
[2020-11-05] MEDS: THIAMINE 100 MG TAB PO SCH (08:12)
[2020-11-05] MEDS: APIXABAN 5 MG TAB (ELIQUIS) PO SCH (08:13)
[2020-11-05] MEDS: ASPIRIN 81 MG ENTERIC TAB PO SCH (08:13)
[2020-11-05] MEDS: FLUoxetine 20 MG CAP PO SCH (08:13)
[2020-11-05] MEDS: DOXYCYCLINE HYCLATE 100MG TABLET PO SCH (08:13)
[2020-11-05 08:14] VITALS: BP 147/74
[2020-11-05] MEDS: METOPROLOL TART 25 MG TABLET PO SCH (08:14)
[2020-11-05] MEDS ORDERED: ELIQ5TAB PO (09:32)
[2020-11-05] MEDS ORDERED: DOXY100T PO (09:32)
[2020-11-05] MEDS ORDERED: LEVO250T12 PO (09:32)
[2020-11-05] MEDS ORDERED: MOM 30ML SUSPENSION UDC PO ONE (09:45)
[2020-11-05] MEDS ORDERED: METO25TA4 PO (10:20)
--- NOTE | 2020-11-05 11:44 | DS.PDOC ---
Discharge Summary General Date of Admission Oct 31, 2020 at 18:53 Date of Discharge 11/05/2020 Primary Care Physician: ADAM LECHUGA DO Attending Physician: CINDI ANN MD Discharge Summary PROCEDURES PERFORMED DURING STAY: Central line placement by general surgery. ADMITTING DIAGNOSES: 1. Severe sepsis 2. Right leg cellulitis 3. Possible UTI 4. Atrial fibrillation with RvR 5. Type 2 Diabetes Mellitus 6. CKD stage 3 DISCHARGE DIAGNOSES: 1. Right leg cellulitis 2. Possible UTI 3. Atrial fibrillation with RvR 4. Type 2 Diabetes Mellitus 5. CKD stage 3 COMPLICATIONS/CHIEF COMPLAINT: Atrial Fibillation With Rvr/Sepsis/Cellulitis. HISTORY OF PRESENT ILLNESS: 70 year old female with diabetes mellitus 2, hypertension, diastolic CHF, and morbid obesity who comes to the hospital for altered mental status. Due to patient's altered mental status, unable to obtain history from patient. Patient's daughter, Amelia Muir, was contacted. Patient lives alone and independently. She manages her own medications. She said since the beginning of the week, she's been having dysuria with urinary frequency. This morning, daughter visited patient. Patient was so weak, she cannot help patient go to bathroom. Patient was then taken to the ED. His found to have A. fib with RVR. Heart rate was between 140s to 170s. Initially blood pressure was stable, but started to decline. Patient has no documentation of A. fib and is not on any anticoagulation. Daughter reports that she does not see a gym teacher. In addition, patient had a fever of 100.4 and her right leg was warm, swollen, and tender. Patient will be admitted for sepsis and atrial fibrillation with RVR. While in the ED, her IV infiltrated and they were not able to start a new IV. She did not have antibiotics and she only had half a liter of fluids. General surgery was consulted for placement of a central line. HOSPITAL COURSE: Patient was admitted to the hospitalist service for further treatment and work up. She was started on IV fluids for severe sepsis in addition to IV antibiotics with vancomycin and cefepime. She was also loaded with digoxin, avoiding beta blockers and calcium channel blockers due to hypotension, for her atrial fibrillation and converted to sinus rhythm. She was initially started on heparin drip for anticoagulation and transitioned to Eliquis when her renal function improved. She was continued on metoprolol for rate control as well. Her condition improved greatly and she remained in sinus rhythm. Antibiotics were switched to oral medications to cover for UTI and cellulitis with levofloxacin and doxycycline. She was evaluated by PT and OT who suggested rehab prior to return home. On the day prior to discharge she did cough up some mucus with streaks of blood. She was evaluated by speech therapy prior to discharge for concern of possible aspiration related to the blood. DISCHARGE MEDICATIONS: Please see below. ALLERGIES: Please see below. PHYSICAL EXAMINATION ON DISCHARGE: VITAL SIGNS: Please see below. GENERAL: Alert, comfortable, in no acute distress HEENT: Normocephalic, atraumatic, EOMI, moist mucous membranes CARDIOVASCULAR: Regular rate and rhythm, normal S1 and S2. No murmurs, rubs, or gallops RESPIRATORY: Clear to auscultation bilaterally with equal air entry bilaterally. No wheezing, rhonchi, or rales. ABDOMEN: Obese, soft, nontender, nondistended, bowel sounds present EXTREMITIES: Bilateral LE edema up to the knees, 2+ on the right and 1+ on the left SKIN: Erythema and warmth over the right anterior calf NEUROLOGIC: Alert and oriented x3 to person, place and time. No focal deficits appreciated PSYCHIATRIC: Mood and affect appropriate LABORATORY DATA: Please see below. IMAGING: (per radiologist's interpretation) - CXR Borderline heart size. Vascular cephalization. Otherwise no acute disease. - Bilateral LE Duplex U/S There is no ultrasonographic evidence of deep venous thrombosis involving any of the visualized deep venous structures of the bilateral thigh, as described above. - Chest CT 1. While nodular infiltrates bilaterally have improved since the prior study, there is some residual ill-defined nodular opacity at the site of the prior largest infiltrate in the right upper lobe posterior inferiorly. Recommend follow-up to complete resolution. 2. New or significantly worsened central and particularly lower lobe bronchial wall thickening with multifocal mucous plugging in the lower lobes. Findings suggest bronchitis. A component of aspiration could be present. 3. Diffuse esophageal wall thickening suggesting esophagitis, with small hiatal hernia. 4. Question mild pulmonary edema or mild pneumonitis in the upper to mid lungs bilaterally. 5. Subtle slightly hypodense thyroid nodules likely present bilaterally measuring 11 mm on the left and 10 mm on the right, either new or better vis ualized compared to 11/30/2019. 6. Findings suggesting anemia. - CT abdomen/pelvis 1. Marked rectal wall thickening which is circumferential superiorly, and more pronounced posteriorly and on the left at the anus. Findings may be from proctitis which appears severe. However, correlation with rectal examination suggested given the eccentric wall thickening in the anal region to exclude the less likely possibility of rectal/anal carcinoma. No obstructive changes are seen more suggestive of stercoral colitis, but there is a large amount of stool in the rectum. 2. Minimal haziness in the central and left mesenteric fat with multiple tiny mesenteric lymph nodes, most likely reactive changes either from the rectal/anal process, or minimal mesenteric adenitis/minimal enterocolitis. 3. Additional findings: Multilevel degenerative disc and facet disease with multilevel central canal and neural foraminal narrowing. Cholelithiasis. Nonspecific fat stranding and skin thickening in the abdominal wall pannus. - CXR 1. CVP catheter tip as described above. 2. No significant change in the lung ogden PROGNOSIS: Fair ACTIVITY: As tolerated. DIET: Consistent carbohydrate, mechanical soft diet level 2 with thin liquids DISCHARGE PLAN/DISPOSITION: [facility] for rehab prior to return home DISCHARGE INSTRUCTIONS: 1. Follow-up with your PCP in 7-10 days 2. Please complete the course of both antibiotics 3. Please takes all your medications as prescribed 4. If your symptoms return or your condition worsens, please call your PCP or return to the ED for further evaluation. ITEMS TO FOLLOWUP ON ON OUTPATIENT: 1. Incidental imaging findings noted above DISCHARGE CONDITION: Stable. TIME SPENT ON DISCHARGE: Greater than 35 minutes. Attending attestation: Patient seen and examined independently. Agree with student's note. Vital Signs/I&Os Vital Signs Date Time Temp Pulse Resp B/P (MAP) Pulse Ox O2 Delivery O2 Flow Rate FiO2 11/05/20 08:14 89 147/74 11/05/20 06:00 97.8 18 96 11/04/20 14:00 Room Air 11/01/20 12:00 1.0 I&O- Last 24 Hours up to 6 AM 11/05/20 05:59 Intake Total 270 ml Output Total 950 ml Balance -680 ml Laboratory Data Labs 24H Laboratory Tests 2 11/04/20 11:31: Bedside Glucose (Misc Panel) 92 11/04/20 16:18: Bedside Glucose (Misc Panel) 123H 11/04/20 20:37: Bedside Glucose (Misc Panel) 114 12/8/20 06:43: Nucleated Red Blood Cells % (auto) 0.2H, Anion Gap 5L, Glomerular Filtration Rate 54.9, Calcium Level 8.4L 11/05/20 07:23: Bedside Glucose (Misc Panel) 106 CBC/BMP Laboratory Tests 11/05/20 06:43 FSBS Laboratory Tests Test 11/04/20 11:31 11/04/20 16:18 11/04/20 20:37 11/05/20 07:23 Range/Units Bedside Glucose (Misc Panel) 92 123 114 106 80-115 MG/DL Microbiology Microbiology 10/31/20 Blood Culture - Preliminary, Resulted No Growth after 72 hours. All specime... 10/31/20 Blood Culture - Preliminary, Resulted No Growth after 72 hours. All specime... Discharge Medications Scheduled Allopurinol (Allopurinol) 100 Mg Tablet, 100 MG PO DAILY, (Reported) Apixaban (Eliquis) 5 Mg Tablet, 5 MG PO BID Aspirin (Aspirin EC) 81 Mg Tablet.dr, 81 MG PO DAILY, (Reported) Bupropion Hcl (Bupropion HCl Sr) 150 Mg Tab.sr.12h, 150 MG PO BID, (Reported) Calcitriol (Calcitriol) 0.25 Mcg Capsule, 0.25 MCG PO 3XW, (Reported) WED/WED/WED Doxycycline Hyclate (Doxycycline Hyclate) 100 Mg Tablet, 100 MG PO BID Fluoxetine Hcl (Fluoxetine HCl) 40 Mg Capsule, 40 MG PO DAILY, (Reported) Furosemide (Furosemide) 40 Mg Tablet, 40 MG PO BID, (Reported) Gabapentin (Gabapentin) 600 Mg Tablet, 600 MG PO TID, (Reported) Glipizide (Glipizide ER) 5 Mg Tab, 5 MG PO DAILY, (Reported) Levofloxacin (Levofloxacin) 250 Mg Tablet, 250 MG PO DAILY@0600 Magnesium Oxide (Magnesium Oxide) 400 Mg Tab, 400 MG PO 3XW, (Reported) WED, WED, WED Metoprolol Tartrate (Metoprolol Tartrate) 25 Mg Tablet, 1 TAB PO BID Niacin (Niacin ER) 1,000 Mg Tab, 1,000 MG PO QHS, (Reported) Simvastatin (Simvastatin) 20 Mg Tablet, 20 MG PO QHS, (Reported) Scheduled PRN Docusate Sodium (Docusate Sodium) 100 Mg Capsule, 100 MG PO BID PRN for CONSTIPATION, (Reported) Hydrocodone/Acetaminophen (Hydrocodone-Acetamin 5-325 mg) 1 Each Tablet, 1 TAB PO Q6H PRN for PAIN, (Reported) Allergies Coded Allergies: No Known Allergies (Verified Allergy, Unknown, 10/20/19) BETTINA ANTOINE D.O. Nov 05, 2020 11:37 CINDI ANN MD Nov 06, 2020 06:49
== END 2020-11-05 12:45 | DRG 872 ==
LOC: EDBD 11:37 → M ED 11:37 → M ED INP 18:53 → ENRESERV 20:19 → M ICU 22:08 → M PCU 11-01 15:10 → M MSPAV 11-03 13:58
PROVIDERS: ADMIT Internal Medicine; ATTEND Internal Medicine
PROC: 02HV33Z Insertion of Infusion Device into Superior Vena Cava, Percutaneous Approach (ICD-10-PCS; principal; 2020-10-31)
DX: A41.9 Sepsis, unspecified organism (principal); I50.32 Chronic diastolic (congestive) heart failure; I13.0 Hypertensive heart and chronic kidney disease with heart failure and stage 1 through stage 4 chronic kidney disease, or unspecified chronic kidney disease; Z68.42 Body mass index [BMI] 45.0-49.9, adult; L03.115 Cellulitis of right lower limb; E87.2 Acidosis; N39.0 Urinary tract infection, site not specified; I48.20 Chronic atrial fibrillation, unspecified; E11.42 Type 2 diabetes mellitus with diabetic polyneuropathy; R65.20 Severe sepsis without septic shock; I87.2 Venous insufficiency (chronic) (peripheral); G47.33 Obstructive sleep apnea (adult) (pediatric); E78.00 Pure hypercholesterolemia, unspecified; E66.01 Morbid (severe) obesity due to excess calories; N18.30 Chronic kidney disease, stage 3 unspecified; E11.22 Type 2 diabetes mellitus with diabetic chronic kidney disease; Z79.82 Long term (current) use of aspirin; Z79.84 Long term (current) use of oral hypoglycemic drugs; Z79.899 Other long term (current) drug therapy; Z20.828 Contact with and (suspected) exposure to other viral communicable diseases

== ENCOUNTER → 2020-11-10 | Outpatient (REF) ==
[~2020-11-10] MED LIST changes: +ALLO100T PO; +ELIQ5TAB PO; +LEVO250T12 PO; +METO25TA4 PO
== END ==
PROVIDERS: ATTEND Internal Medicine
DX: Z20.828 Contact with and (suspected) exposure to other viral communicable diseases (principal)

== ENCOUNTER → 2020-11-11 | Outpatient (REF) ==
[2020-11-11 10:10] LABS: HEMATOCRIT 31.6 % (36.0-47.0); HEMOGLOBIN 10.3 g/dl (12.0-15.5); MEAN CORPUSCULAR HEMOGLOBIN 32.9 pg (27.0-33.0); MEAN CORPUSCULAR HGB CONC 32.6 g/dl (32.0-36.5); PLATELET COUNT, AUTOMATED 316 10^3/uL (150-450); RED BLOOD COUNT 3.13 10^6/uL (4.00-5.40); WHITE BLOOD COUNT 7.8 10^3/uL (4.0-10.0)
[2020-11-11 10:39] LABS: CALCIUM LEVEL 8.6 MG/DL (8.8-10.2); CREATININE FOR GFR 1.26 MG/DL (0.55-1.30); POTASSIUM SERUM 4.3 MEQ/L (3.5-5.1)
== END ==
PROVIDERS: ATTEND Internal Medicine
DX: L03.90 Cellulitis, unspecified (principal)

== ENCOUNTER → 2020-11-14 | Outpatient (REF) | payer MEDICARE, MEDICAID ==
[2020-11-14 15:26] LABS: INFLUENZA A AMPLIFICATION NEGATIVE (NEGATIVE); INFLUENZA B AMPLIFICATION NEGATIVE (NEGATIVE)
== END ==
PROVIDERS: ATTEND Internal Medicine
DX: Z20.828 Contact with and (suspected) exposure to other viral communicable diseases (principal)
CPT/HCPCS: 87502; U0003

== ENCOUNTER → 2020-11-15 | Outpatient (REF) ==
[2020-11-15 14:47] LABS: HEMATOCRIT 33.1 % (36.0-47.0); HEMOGLOBIN 10.5 g/dl (12.0-15.5); MEAN CORPUSCULAR HEMOGLOBIN 32.3 pg (27.0-33.0); MEAN CORPUSCULAR HGB CONC 31.7 g/dl (32.0-36.5); MEAN CORPUSCULAR VOLUME 101.8 fl (80.0-96.0); PLATELET COUNT, AUTOMATED 317 10^3/uL (150-450); RED BLOOD COUNT 3.25 10^6/uL (4.00-5.40); WHITE BLOOD COUNT 5.1 10^3/uL (4.0-10.0)
[2020-11-15 15:03] LABS: CALCIUM LEVEL 9.1 MG/DL (8.8-10.2); CREATININE FOR GFR 1.55 MG/DL (0.55-1.30); GLOMERULAR FILTRATION RATE 35.4 (>45); POTASSIUM SERUM 4.2 MEQ/L (3.5-5.1)
== END ==
PROVIDERS: ATTEND Internal Medicine
DX: N18.9 Chronic kidney disease, unspecified (principal)

== ENCOUNTER → 2020-11-18 | Outpatient (REF) | payer MEDICARE, MEDICAID ==
[2020-11-18 09:02] LABS: HEMOGLOBIN 10.5 g/dl (12.0-15.5); MEAN CORPUSCULAR HEMOGLOBIN 32.6 pg (27.0-33.0); MEAN CORPUSCULAR HGB CONC 31.8 g/dl (32.0-36.5); MEAN CORPUSCULAR VOLUME 102.5 fl (80.0-96.0); PLATELET COUNT, AUTOMATED 287 10^3/uL (150-450); RED BLOOD COUNT 3.22 10^6/uL (4.00-5.40); WHITE BLOOD COUNT 4.9 10^3/uL (4.0-10.0)
[2020-11-18 09:37] LABS: CALCIUM LEVEL 8.9 MG/DL (8.8-10.2); CREATININE FOR GFR 1.57 MG/DL (0.55-1.30); GLOMERULAR FILTRATION RATE 34.9 (>45); POTASSIUM SERUM 4.2 MEQ/L (3.5-5.1)
== END ==
PROVIDERS: ATTEND Internal Medicine
DX: L03.90 Cellulitis, unspecified (principal)

== ENCOUNTER 2021-01-20 10:24 | Inpatient (IN) | payer MEDICARE, MEDICAID ==
[~2021-01-20] VITALS: Ht 152.4 cm; Wt 102.3 kg
--- OUTSIDE RECORDS SUMMARY | 2021-01-20 10:33 | CCD | Continuity of Care Document ---
Author Author Carmen SO D.O Organization Unknown Address [address] [place] [address] Phone [phone] Care Team Providers Care Home Based Assistant Name Role Phone Lashonda So D.O. AUTM [phone] Laura Leary MD AUTM [phone] Problems Active Problems Provider Date Type 2 diabetes mellitus Lashonda So D.O. Onset: 0 02/12/2015 Essential hypertension Lashonda So D.O. Onset: Mixed hyperlipidemia Lashonda So D.O. Onset: 02/12 Morbid obesity Lashonda So D.O. Onset: 2014 Gout Lashonda So D.O. Onset: 2014 Moderate recurrent major depression Beverly To Onset: 02/12/2015 Vitamin D deficiency Lashonda So D.O. Onset: 02/12 Disorder of magnesium metabolism Lashonda So D.O. Onset: 02/12/2015 Hypokalemia Lashonda So D.O. Onset: 2014 Congestive heart failure Lashonda So D.O. Onset: 0 02/12/2015 Iron deficiency anemia Lashonda So D.O. Onset: Liver function tests abnormal Lashonda So D.O. Ons et: 2015 Sleep hypoventilation Lashonda So D.O. Onset: 03/01 Gallstone Lashonda So D.O. Onset: 2014 Note: u/s 03/2015 shows multiple stones w ith mild wall thickening Non-alcoholic fatty liver Lashonda So D.O. Onset: 04/10/2015 Note: u/s 03/2015 shows fatty infiltrate of liver Chronic kidney disease stage 3 Lashonda So D.O. On set: 07/04/2015 Edema Lashonda So D.O. Onset: 2014 Obstructive sleep apnea syndrome Lashonda So D.O. Onset: 10/04/2015 Body mass index 40+ - severely obese Tamiko To Onset: 10/04/2015 Difficulty breathing Lashonda So D.O. Onset: 10/04 Hypoxemia Tamiko To.Cuate. Onset: 2014 Sensorineural hearing loss, bilateral Tamiko To.Kacy Onset: 10/04/2015 Low back pain Lashonda So D.O. Onset: 2014 Arthralgia of the pelvic region and thigh Tamiko Del Cid.O. Onset: 10/04/2015 Knee pain Lashonda So D.O. Onset: 2014 Closed fracture of lower end of humerus NAIF Degroot Onset: 09/21/2016 Chronic kidney disease stage 3 due to hypertension Lashonda Tee D.O. Onset: 05/23/2018 Urinary tract infectious disease NAIF Degroot Onset: 05/26/2019 Left side sciatica NAIF Degroot Onset: 05/26/2019 Social History Type Date Description Comments Sex Unknown ETOH Use Denies alcohol use Tobacco Use Start: Unknown Patient has never smoked Smoking Status Reviewed: 09/26/20 Patient has never smoked Allergies, Adverse Reactions, Alerts Description No Known Drug Allergies Medications Active Medications SIG Qnty Indications Ordering Provide r Date Dok 100mg Capsules Take Two Capsules By Mouth Every Day 60caps Lashonda [place], D.OLatanya 08/15 Bupropion Hydrochloride ER (SR) 150mg Tablets ER 12HR take one tablet by mouth twice a day 60tabs F33.1 Tamiko Vega.OLatanya 05/26/2019 Nyamyc [id number]/GM Powder apply topically twice a day to area beneath breasts and pannus 60gm E11 .22 Tamiko To.OLatanya 02/23/2019 Gabapentin 600mg Tablets take one tablet by mouth three times a day 270tabs M54.32 Tamiko To.OLatanya 05/23/2018 Shower Chair Use as directed. 1units E66.01 Tamiko Gallegos.OLatanya 04/12/2018 Hydrocodone-Acetaminophen 5-325mg Tablets 1 by mouth every 6 hours as needed for pain istop [id number] 30tabs L03.115 Tamiko To.OLatanya 01/25/2018 Walker Auto Glides/5 Adjustment Holes/- 12/06" 1-12/06" [facility] rolling walker with seat dispense:1, duration:99 dx: r26.9 1 units R26.9 Tamiko To.OLatanya 07/02/2017 Medline Extra Wide Heavy Duty Rollator Walker Use as directed. 1uni ts E66.01 Tamiko To.OLatanya 06/28/2017 Nasal Cannula And Tubing For Concentrator use as direc eric with oxygen concentrator. 5units G47.36 Tamiko To.OLatanya 06/28 Glucocom Test Strips 1 test strip 3 times daily dx e11.22 100units E11.22 Beverly ToOLatanya 08/07 Glucosource Lancets [facility] diagnosis: e11.22 prognosis: fair duration:99 to be used to test blood sugars once daily 30units E11.22 Tamiko To.OLatanya 08/07/2016 Blood Glucose System Ed Kit to be used to test blood sugars 1units E11.22 Tamiko To.O. 08/07/2016 Fluoxetine HCL 40mg Capsules take one capsule by mouth every day 30caps F33.1 Beverly ToOLatanya 12/26/2015 Hoverround Motorized Wheelchair E66.01 Beverly ToOLatanya 10/17/2015 R06.00 R09.02 Battery 1.45 Volt Mercury Free batteries to be used with hearing aid for right ear 1Package H90.3 Beverly ToO. 10/04/2015 Wax Guards Part number [id number] 1packet H90.3 Beverly VegaOLatanya 10/04/2015 Glipizide ER 5mg Tablets ER 24HR take one tablet by mouth every day 30tabs Beverly ToO. 07/04/2015 Niacin ER (Antihyperlipidemic) 1000mg Tablets ER Take One Tablet By Mouth AT Bedtime 30tabs E78.2 Beverly ToOLatanya 04/08/2015 Calcitriol 0.25mcg Capsules takes only on wed and wednesday 24caps Beverly ToOLatanya 02/12 Metoprolol Tartrate 100mg Tablets take one tablet by mouth every day 60tabs Beverly ToOLatanya 02/12/2015 Simvastatin 20mg Tablets Take One Tablet By Mouth Every Day 30tabs Beverly ToOLatanya Furosemide 40mg Tablets Take One Tablet By Mouth Twice A Day 60tabs Beverly ToOLatanya Aspirin 81 Low Dose 81mg Chewtabs 1 by mouth every day Unknown Magnesium 400mg Tablets take one tablet by mouth on Wed, Wed and Wed Unknown Allopurinol 100mg Tablets take one tablet by mouth every day Unknown History Medications Cephalexin 500mg Capsules 1 tab by mouth three times a day until gone 21caps N39.0 Beverly HinkleO. 06/24/2020 - 09/26/2020 Macrobid 100mg Capsules 1 capsule by mouth every twelve hours until gone 20caps N39.0 Lashonda lancaster, D.O. 06/20/2020 - 06/24/2020 Medications Administered in Office Medication SIG Qnty Indications Ordering Provider Date Immunization Administration Single Or Co mbination Injection NAIF Degroot Immunizations CPT Code Status Date Vaccine Lot # [id number] Given 09/26/2020 Influenza Virus Vaccine, Quadrivalent, Split, Preservative Free [id number] 94764 Given 10/11/2019 Influenza Virus Vaccine, Quadrivalent, Split, Preservative Free [id number] Given 09/07/2018 Influenza Vaccin e Quadrivalent Preser/Antibiotic Free Im Use [id number] 23744 Given 10/05/2017 Influenza Vaccin e Quadrivalent Preser/Antibiotic Free Im Use [id number] 43058 Given 09/21/2016 Influenza Virus Vaccine, Quadrivalent, Split, Preservative Free [id number] 22217 Given 02/22/2013 Zoster Shingles Vaccine For Subcutaneous Injection U-Pneum Given 01/17/2013 Pneumococcal,Unspecified Vital Signs Date Vital Result Comment 09/26/2020 1:09pm BP Systolic 128 mmHg BP Diastolic 86 mmHg Height 59.50 inches 4'11.50" Weight 240.00 lb BMI (Body Mass Index) 47.7 kg/m2 Heart Rate 77 /min Respiratory Rate 26 /min Body Temperature 98.8 F O2 % BldC Oximetry 98 % [place] Body Weight 100 lb 05/22/2020 1:31pm BP Systolic 128 mmHg BP Diastolic 72 mmHg Height 59.50 inches 4'11.50" Weight 253.12 lb BMI (Body Mass Index) 50.3 kg/m2 Heart Rate 64 /min Respiratory Rate 20 /min Body Temperature 97.1 F O2 % BldC Oximetry 98 % [place] Body Weight 100 lb Results Test Acquired Date Facility Test Result H/L Range Note Venous Blood Gas 10/31/2020 [facility] Outpatient Testi ng (Registration) [address] [place] [address] [phone] Venous PH 7.338 units Normal 7.330-7.430 Venous Partial Pressure Co2 53.2 mmHg High 38.0-50.0 Venous Partial Pressure O2 79.7 mmHg High 30.0-50.0 Venous Total Co2 29.6 mEq/L High 24.0-28.0 Venous Hco3 27.9 mEq/L High 23.0-27.0 Venous Base Excess 1.2 Normal -2.0-2.0 Venous Standard Hco3 25.5 mEq/L Normal Venous O2 Saturation 95.2 % High 60.0-80.0 Prothrombin Time/Inr 10/31/2020 [facility] Outpatient Test ing (Registration) [address] [place] [address] [phone] Prothrombin Time 19.2 seconds High 12.5-14.3 Inr 1.58 Normal 1 Laboratory test finding 10/31/2020 [facility] Outpatient T esting (Registration) [address] [place] [address] [phone] Partial Thromboplastin Time 25.2 seconds Normal 24 .2-38.5 Cardiac Marker Panel 10/31/2020 [facility] Outpatient Test ing (Registration) [address] [place] [address] [phone] CPK Creatine Phosphokinase 316 U/L High 26-19 2 CK-MB Value Mass 2.6 NG/ML Normal <3.6 MB/CK Relative Index 0.82 Normal < Or =4 2 Troponin I < 0.02 NG/ML Normal < 0.10 3 Liver Profile 10/31/2020 [facility] Outpatient Testi ng (Registration) [address] [place] [address] [phone] Ast/Sgot 54 U/L High 7-37 Alt/SGPT 34 U/L Normal 12-78 Alkaline Phosphatase 100 U/L Normal 45-117 Bilirubin,Total 1.1 mg/dL High 0.2-1.0 Bilirubin,Direct 0.5 mg/dL High 0.0-0.2 Total Protein 6.0 GM/DL Low 6.4-8.2 Albumin 2.4 GM/DL Low 3.2-5.2 Albumin/Globulin Ratio 0.7 Low 1.2-2.2 Basic Metabolic Profile 10/31/2020 [facility] Outpatient T esting (Registration) [address] [place] [address] [phone] Glucose, Fasting 83 mg/dL Normal 70-100 Blood Urea Nitrogen 40 mg/dL High 7-18 Creatinine For GFR 1.77 mg/dL High 0.55-1.30 Glomerular Filtration Rate 30.4 Low >45 4 Sodium Level 146 mEq/L High 136-145 Potassium Serum 4.1 mEq/L Normal 3.5-5.1 Chloride Level 110 mEq/L High 98-107 Carbon Dioxide Level 27 mEq/L Normal 21-32 Anion Gap 9 mEq/L Normal 8-16 Calcium Level 9.3 mg/dL Normal 8.8-10.2 Laboratory test finding 10/31/2020 [facility] Outpatient T esting (Registration) [address] [place] [address] [phone] C Reactive Protein Quantitativ 28.40 mg/dL High 0.00-0.30 Lactic Acid Sepsis Protocol 4.4 mmol/L Critical high 0.4-2.0 5 CBC With Differential 10/31/2020 [facility] Outpatient Aliya ting (Registration) [address] [place] [address] [phone] White Blood Count 6.5 10 Normal 4.0-10.0 Red Blood Count 3.79 10 Low 4.00-5.40 Hemoglobin 12.7 g/dL Normal 12.0-15.5 Hematocrit 39.2 % Normal 36.0-47.0 Mean Corpuscular Volume 103.4 fl High 80.0-96.0 Mean Corpuscular Hemoglobin 33.5 pg High 27.0-33.0 Mean Corpuscular HGB Conc 32.4 g/dL Normal 32.0-36.5 Red Cell Distribution Width 14.9 % High 11.5-14.5 Platelet Count, Automated 139 10 Low 150-450 Nucleated Red Blood Cell % 0.0 % Normal 0-0 Differential 10/31/2020 [facility] Outpatient Testi ng (Registration) [address] [place] [address] [phone] Neutrophils 44 % Normal 28-66 Bands 37 % High < 11 Lymphocytes 7 % Low 16-44 Monocytes 1 % Normal 0-5 Metamyelocytes 8 % High 0-0 Myelocytes 3 % High 0-0 Macrocytosis 1+ Normal Toxic Granulation 2+ Normal Toxic Vacuolation 2+ Normal Laboratory test finding 10/31/2020 [facility] Outpatient T esting (Registration) [address] [place] [address] [phone] Platelet Estimate DECREASED Normal Normal Inhouse Ua 06/20/2020 Inhouse Inhouse Leukocytes small Inhouse Nitrite neg Inhouse Urobilinogen 0.2 Inhouse Protein + Inhouse PH 5.0 Inhouse Hemoglobin neg Inhouse Specific [place] 1.010 Inhouse Ketones neg Inhouse Bilirubin neg Inhouse Glucose neg 1 THERAPUTIC HUMAN INR VALUES INDICATIONS NORMAL RANGES PROPHYLAXIS/TREATMENT OF: VENOUS THROMBOSIS 2.0-3.0 PULMONARY EMBOLISM 2.0-3.0 PREVENTION OF SYSTEMIC EMBOLISM FROM: TISSUE HEART VALVES 2.0-3.0 ACUTE MYOCARDIAL INFARCTION 2.0-3.0 VALVULAR HEART DISEASE 2.0-3.0 ATRIAL FIBRILLATION 2.0-3.0 MECHANICAL VALVES(HIGH RISK) 2.5-3.5 RECURRENT MYOCARDIAL INFARCTION 2.5-3.5 2 DIAGNOSIS CRITERIA MMB ng/ml Relative Index (RI) NON-AMI < or = 5 N/A ORTIZ ZONE > 5 < or = 4 AMI > 5 > 4 3 Troponin I Reference Interva l for [place] LOCI: 99th Percentile= 0.00-0.045 ng/ml Risk Stratification: <= 0.10 ng/ml Decreased Risk for Adverse Clinical Events. 0.10-1.50 ng/ml Increased Risk for Adv erse Clinical Events. Evaluation of additional criterion and/or repeat testing in 2-6 hours is suggested to rule out myocardial damage. >= 1.50 ng/ml Indicative of Myocardial Injury. 4 Units are mL/min/1.73 m2 Chronic Kidney Disease Staging per NKF: Stage I & II GFR >=60 Normal to Mildly Decreased Stage III GFR 30-59 Moderately Decreased Stage IV GFR 15-29 Severely Decreased Stage V GFR <15 Very Little GFR Left ESRD GFR <15 on PUBLIC HEALTH NUTRITIONIST 5 Y/N query for Sepsis Lactate Rule: Y Procedures Description No Information Available Medical Devices Description No Information Available Encounters Type Date Location Provider Dx Diagnosis Office Visit 09/26/2020 1:00p [facility] NAIF Degroot E11.22 Type 2 diabetes mellitus w d iabetic chronic kidney disease F33.1 Major depressive disorder, r ecurrent, moderate E78.2 Mixed hyperlipidemia E55.9 Vitamin D deficiency, unspec ified Z23 Encounter for immunization Office Visit 06/20/2020 3:40p [facility] NAIF Degroot N39.0 Urinary tract infection, sit e not specified Office Visit 05/22/2020 1:40p [facility] NAIF Degroot E11.22 Type 2 diabetes mellitus w d iabetic chronic kidney disease F33.1 Major depressive disorder, r ecurrent, moderate E66.01 Morbid (severe) obesity due to excess calories N18.3 Chronic kidney disease, stag e 3 (moderate) E78.2 Mixed hyperlipidemia E55.9 Vitamin D deficiency, unspec ified H91.92 Unspecified hearing loss, le ft ear R53.1 Weakness Assessments Date Code Description Provider 09/26/2020 E11.22 Type 2 diabetes mellitus with di abetic chronic kidney diseas NAIF Degroot 09/26/2020 F33.1 Major depressive disorder, recur rent, moderate NAIF Degroot 09/26/2020 E78.2 Mixed hyperlipidemia NAIF Julio 09/26/2020 E55.9 Vitamin D deficiency, unspecifie d NAIF Degroot 09/26/2020 Z23 Encounter for immunization NAIF Villatoro 06/20/2020 N39.0 Urinary tract infection, site no t specified NAIF Degroot 05/22/2020 E11.22 Type 2 diabetes mellitus with di abetic chronic kidney diseas NAIF Degroot 05/22/2020 F33.1 Major depressive disorder, recur rent, moderate NAIF Degroot 05/22/2020 E66.01 Morbid (severe) obesity due to e xcess calories NAIF Degroot 05/22/2020 N18.3 Chronic kidney disease, stage 3 (moderate) NAIF Degroot 05/22/2020 E78.2 Mixed hyperlipidemia NAIF Julio 05/22/2020 E55.9 Vitamin D deficiency, unspecifie d NAIF Degroot 05/22/2020 H91.92 Unspecified hearing loss, left e ar NAIF Degroot 05/22/2020 R53.1 Weakness NAIF Degroot Plan of Treatment Future Appointment(s):* 01/29/2021 1:00 pm - NAIF Degroot at [facility] Functional Status Description No Information Available Mental Status Description No Information Available Referrals Refer to Reason for Referral Status Appt Date Laura Leary MD 70 year old female, known to your practice, in need of reassessment of hearing and hearing aids. Please eval and treat. Sent [facility], [place] [phone]
--- OUTSIDE RECORDS SUMMARY | 2021-01-20 10:33 | CCD | Continuity of Care Document ---
Author Author Carmen SO D.O Organization Unknown Address [address] [place] [address] Phone [phone] Care Team Providers Care Automotive Engineer Name Role Phone Lashonda So D.O. AUTM [phone] Laura Leary MD AUTM [phone] Problems Active Problems Provider Date Type 2 [...] mouth twice a day 60tabs F33.1 Tamiko Vega.OLatayna 05/26/2019 Nyamyc 341067Cwvw/GM Powder apply topically twice a day to area beneath breasts and pannus 60gm E11 .22 Tamiko To.OLatanya 02/23/2019 Gabapentin 600mg Tablets take one tablet by mouth three times a day 270tabs M54.32 Tamiko To.OLatanya 05/23/2018 Shower Chair Use as directed. 1units E66.01 Tamiko Gallegos.OLatanya 04/12/2018 Hydrocodone-Acetaminophen 5-325mg Tablets 1 by mouth every 6 hours as needed for pain istop [id number] 30tabs L03.115 Tamiko To.OLatanya 01/25/2018 Walker Auto Glides/5 Adjustment Holes/- 12/06" 1-12/06" [facility] [place]er with seat dispense:1, duration:99 dx: [...] 100units E11.22 Beverly ToOLatanya 08/07 Glucosource Lancets [facility] diagnosis: e11.22 prognosis: fair duration:99 to be [...] Beverly ToO. 10/04/2015 [employer] Part number [id number] 1packet H90.3 Beverly VegaOLatanya 10/04/2015 Glipizide ER [...] CPT Code Status Date Vaccine Lot # [id number] Given 09/26/2020 Influenza Virus Vaccine, Quadrivalent, Split, Preservative Free [id number] 06010 Given 10/11/2019 Influenza Virus Vaccine, Quadrivalent, Split, Preservative Free [id number] Given 09/07/2018 Influenza Vaccin e Quadrivalent Preser/Antibiotic Free Im Use [id number] 01369 Given 10/05/2017 Influenza Vaccin e Quadrivalent Preser/Antibiotic Free Im Use [id number] 60515 Given 09/21/2016 Influenza Virus Vaccine, Quadrivalent, Split, Preservative Free [id number] 40754 Given 02/22/2013 Zoster Shingles Vaccine For Subcutaneous Injection U-Pneum Given 01/17/2013 Pneumococcal,Unspecified Vital Signs Date Vital Result Comment 09/26/2020 1:09pm BP Systolic 128 mmHg BP Diastolic 86 mmHg Height 59.50 inches 4'11.50" Weight 240.00 lb BMI (Body Mass Index) 47.7 kg/m2 Heart Rate 77 /min Respiratory Rate 26 /min Body Temperature 98.8 F O2 % BldC Oximetry 98 % [place] Body Weight 100 lb 05/22/2020 1:31pm BP Systolic 128 mmHg BP Diastolic 72 mmHg Height 59.50 inches 4'11.50" Weight 253.12 lb BMI (Body Mass Index) 50.3 kg/m2 Heart Rate 64 /min Respiratory Rate 20 /min Body Temperature 97.1 F O2 % BldC Oximetry 98 % [place] Body Weight 100 lb Results Test Acquired Date Facility Test Result H/L Range Note Venous Blood Gas 10/31/2020 [facility] Outpatient Testi ng (Registration) [address] [place] [address] [phone] Venous PH 7.338 units Normal 7.330-7.430 Venous Partial Pressure Co2 53.2 mmHg High 38.0-50.0 Venous Partial Pressure O2 79.7 mmHg High 30.0-50.0 Venous Total Co2 29.6 mEq/L High 24.0-28.0 Venous Hco3 27.9 mEq/L High 23.0-27.0 Venous Base Excess 1.2 Normal -2.0-2.0 Venous Standard Hco3 25.5 mEq/L Normal Venous O2 Saturation 95.2 % High 60.0-80.0 Inhouse Ua 06/20/2020 Inhouse Inhouse Leukocytes small Inhouse Nitrite neg Inhouse Urobilinogen 0.2 Inhouse Protein + Inhouse PH 5.0 Inhouse Hemoglobin neg Inhouse Specific [place] 1.010 Inhouse Ketones neg Inhouse Bilirubin neg Inhouse Glucose neg Procedures Description No Information Available Medical Devices Description No Information Available Encounters Type Date Location Provider Dx Diagnosis Office Visit 09/26/2020 1:00p [facility] NAIF Degroot E11.22 Type 2 diabetes mellitus 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 iabetic chronic kidney disease F33.1 Major depressive disorder, r ecurrent, moderate E78.2 Mixed hyperlipidemia E55.9 Vitamin D deficiency, unspec ified Z23 Encounter for immunization Office Visit 06/20/2020 3:40p [facility] NAIF Pedro N39.0 Urinary tract infection, sit e not specified Office Visit 05/22/2020 1:40p [facility] NAIF Degroot E11.22 Type 2 diabetes mellitus [...] 01/29/2021 1:00 pm - NAIF Degroot at [facility] Functional Status Description No Information Available Mental Status Description No Information Available Referrals Refer to Reason for Referral Status Appt Date Laura Leary MD 70 year old female, known to your practice, in need of reassessment of hearing and hearing aids. Please eval and treat. Sent [facility], [place] [address] [phone]
--- OUTSIDE RECORDS SUMMARY | 2021-01-20 10:33 | CCD | Continuity of Care Document ---
Author Author Carmen SO D.O Organization Unknown Address [address] [place] [address] Phone [phone] Care Team Providers Care Plumber Maintenance Name Role Phone Lashonda So D.O. AUTM Laura Leary MD AUTM [phone] Problems Active Problems Provider Date Type 2 [...] day 60tabs F33.1 Tamiko Vega.OLatanya 05/26/2019 Nyamyc [id number]/GM Powder apply topically twice a day to area beneath breasts and pannus 60gm E11 .22 Tamiko To.OLatanya 02/23/2019 Gabapentin 600mg Tablets take one tablet by mouth three times a day 270tabs M54.32 Tamiko To.OLatanya 05/23/2018 Shower Chair Use as directed. 1units E66.01 Tamiko Gallegos.OLatanya 04/12/2018 Hydrocodone-Acetaminophen 5-325mg Tablets 1 by mouth every 6 hours as needed for pain istop [id number] 30tabs L03.115 Tamiko To.OLatanya 01/25/2018 Walker Auto Glides/5 Adjustment Holes/- 12/06" 1-12/06" [facility] rolling walker with seat dispense:1, duration:99 dx: [...] 100units E11.22 Beverly ToOLatanya 08/07 Glucosource Lancets [facility] diagnosis: e11.22 prognosis: fair duration:99 to be [...] Beverly ToO. 10/04/2015 [employer] Guards Part number [id number] 1packet H90.3 Beverly VegaOLatanya 10/04/2015 Glipizide ER [...] CPT Code Status Date Vaccine Lot # [id number] Given 09/26/2020 Influenza Virus Vaccine, Quadrivalent, Split, Preservative Free [id number] 34478 Given 10/11/2019 Influenza Virus Vaccine, Quadrivalent, Split, Preservative Free [id number] [id number] Given 09/07/2018 Influenza Vaccin e Quadrivalent Preser/Antibiotic Free Im Use [id number] 18077 Given 10/05/2017 Influenza Vaccin e Quadrivalent Preser/Antibiotic Free Im Use [id number] Given 09/21/2016 Influenza Virus Vaccine, Quadrivalent, Split, Preservative Free [id number] Given 02/22/2013 Zoster Shingles Vaccine For Subcutaneous Injection U-Pneum Given 01/17/2013 Pneumococcal,Unspecified Vital Signs Date Vital Result Comment 09/26/2020 1:09pm BP Systolic 128 mmHg BP Diastolic 86 mmHg Height 59.50 inches 4'11.50" Weight 240.00 lb BMI (Body Mass Index) 47.7 kg/m2 Heart Rate 77 /min Respiratory Rate 26 /min Body Temperature 98.8 F O2 % BldC Oximetry 98 % [place] Body Weight 100 lb 05/22/2020 1:31pm BP Systolic 128 mmHg BP Diastolic 72 mmHg Height 59.50 inches 4'11.50" Weight 253.12 lb BMI (Body Mass Index) 50.3 kg/m2 Heart Rate 64 /min Respiratory Rate 20 /min Body Temperature 97.1 F O2 % BldC Oximetry 98 % [place] Body Weight 100 lb Results Test Acquired Date Facility Test Result H/L Range Note Venous Blood Gas 10/31/2020 [facility] Outpatient Testi ng (Registration) [address] [place] [address] [phone] Venous PH 7.338 units Normal 7.330-7.430 Venous Partial Pressure Co2 53.2 mmHg High 38.0-50.0 Venous Partial Pressure O2 79.7 mmHg High 30.0-50.0 Venous Total Co2 29.6 mEq/L High 24.0-28.0 Venous Hco3 27.9 mEq/L High 23.0-27.0 Venous Base Excess 1.2 Normal -2.0-2.0 Venous Standard Hco3 25.5 mEq/L Normal Venous O2 Saturation 95.2 % High 60.0-80.0 Prothrombin Time/Inr 10/31/2020 [facility] Outpatient Test ing (Registration) [address] [place] [address] [phone] Prothrombin Time 19.2 seconds High 12.5-14.3 Inr 1.58 Normal 1 Laboratory test finding 10/31/2020 [facility] Outpatient T esting (Registration) [address] [place] [phone] Partial Thromboplastin Time 25.2 seconds Normal 24 .2-38.5 Cardiac Marker Panel 10/31/2020 [facility] Outpatient Test ing (Registration) [address] [place] [address] [phone] CPK Creatine Phosphokinase 316 U/L High 26-19 2 CK-MB Value Mass 2.6 NG/ML Normal <3.6 MB/CK Relative Index 0.82 Normal < Or =4 2 Troponin I < 0.02 NG/ML Normal < 0.10 3 Liver Profile 10/31/2020 [facility] Outpatient Testi ng (Registration) [address] [place] [address] [phone] Ast/Sgot 54 U/L High 7-37 Alt/SGPT 34 U/L Normal 12-78 Alkaline Phosphatase 100 U/L Normal 45-117 Bilirubin,Total 1.1 mg/dL High 0.2-1.0 Bilirubin,Direct 0.5 mg/dL High 0.0-0.2 Total Protein 6.0 GM/DL Low 6.4-8.2 Albumin 2.4 GM/DL Low 3.2-5.2 Albumin/Globulin Ratio 0.7 Low 1.2-2.2 Basic Metabolic Profile 10/31/2020 [facility] Outpatient T esting (Registration) [address] [place] [address] [phone] Glucose, Fasting 83 mg/dL Normal 70-100 Blood [...] mg/dL Normal 8.8-10.2 Laboratory test finding 10/31/2020 [facility] Outpatient T gisela (Registration) [address], [place] [id number] [phone] C Reactive Protein Quantitativ 28.40 mg/dL High 0.00-0.30 Lactic Acid Sepsis Protocol 4.4 mmol/L Critical high 0.4-2.0 5 Inhouse Ua 06/20/2020 Inhouse Inhouse Leukocytes small Inhouse Nitrite neg Inhouse Urobilinogen 0.2 Inhouse Protein + Inhouse PH 5.0 Inhouse Hemoglobin neg Inhouse Specific [place] 1.010 Inhouse Ketones neg Inhouse Bilirubin neg [...] 3 Troponin I Reference Interva l for Digg LOCI: 99th Percentile= 0.00-0.045 ng/ml Risk Stratification: [...] Little GFR Left ESRD GFR <15 on CLASS C DRIVER 5 Y/N query for Sepsis Lactate Rule: Y Procedures Description No Information Available Medical Devices Description No Information Available Encounters Type Date Location Provider Dx Diagnosis Office Visit 09/26/2020 1:00p 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 NAIF [place] N39.0 Urinary tract infection, sit e not specified Office Visit 05/22/2020 1:40p [facility] NAIF [place] E11.22 Type 2 diabetes mellitus [...] 01/29/2021 1:00 pm - NAIF [place] at [facility] Functional Status Description No Information Available Mental Status Description No Information Available Referrals Refer to Dr Reason for Referral Status Appt Date Laura Leary MD 70 year old female, known to your practice, in need of reassessment of hearing and hearing aids. Please eval and treat. Sent [facility], [place] [address] [phone]
--- OUTSIDE RECORDS SUMMARY | 2021-01-20 10:34 | CCD ---
Author Author [facility] Organization [facility] Address Unknown Phone Unavailable Care Team Providers Care Is Consultant Name Role Phone Deysi LARA MD Unavailable Unavailable LARA, Deysi GOODMAN MD Unavailable Unavailable LARA, L REX ROTHMAN Unavailable Unavailable LARA, L REX ROTHMAN Unavailable Unavailable LARA, L REX ROTHMAN Unavailable Unavailable LARA, L REX ROTHMAN Unavailable Unavailable LARA, L REX ROTHMAN Unavailable Unavailable LARA, L REX ROTHMAN Unavailable Unavailable LARA, L REX ROTHMAN Unavailable Unavailable LARA, L REX ROTHMAN Unavailable Unavailable LARA, L REX ROTHMAN Unavailable Unavailable LARA, L REX ROTHMAN Unavailable Unavailable LARA, L REX ROTHMAN Unavailable Unavailable LARA, L REX ROTHMAN Unavailable Unavailable LARA, L REX ROTHMAN Unavailable Unavailable LARA, L REX ROTHMAN Unavailable Unavailable LARA, L REX ROTHMAN Unavailable Unavailable LARA, L REX ROTHMAN Unavailable Unavailable LARA, L REX ROTHMAN Unavailable Unavailable LARA, L REX ROTHMAN Unavailable Unavailable LARA, L REX ROTHMAN Unavailable Unavailable LARA, L REX ROTHMAN Unavailable Unavailable LARA, L REX ROTHMAN Unavailable Unavailable LARA, L REX ROTHMAN Unavailable Unavailable LARA, L REX ROTHMAN Unavailable Unavailable LARA, L REX ROTHMAN Unavailable Unavailable LARA, L REX ROTHMAN Unavailable Unavailable LARA, L REX ROTHMAN Unavailable Unavailable LARA, L REX ROTHMAN Unavailable Unavailable LARA, L REX ROTHMAN Unavailable Unavailable LARA, L REX ROTHMAN Unavailable Unavailable LARA, L REX ROTHMAN Unavailable Unavailable LARA, L REX ROTHMAN Unavailable Unavailable LARA, L REX ROTHMAN Unavailable Unavailable LARA, L REX ROTHMAN Unavailable Unavailable LARA, L REX ROTHMAN Unavailable Unavailable LARA, L REX ROTHMAN Unavailable Unavailable LARA, L REX ROTHMAN Unavailable Unavailable LARA, L REX ROTHMAN Unavailable Unavailable LARA, L REX ROTHMAN Unavailable Unavailable LARA, L REX ROTHMAN Unavailable Unavailable LARA, L REX ROTHMAN Unavailable Unavailable LARA, L REX ROTHMAN Unavailable Unavailable Oscar, Shay PA Unavailable Unavailable Oscar, Shay PA Unavailable Unavailable Oscar, Shay PA Unavailable Unavailable Oscar, Shay PA Unavailable Unavailable Oscar, Shay PA Unavailable Unavailable Oscar, Shay PA Unavailable Unavailable Oscar, Shay PA Unavailable Unavailable Oscar, Shay PA Unavailable Unavailable Oscar, Shay PA Unavailable Unavailable Oscar, Shay PA Unavailable Unavailable Oscar, Shay PA Unavailable Unavailable Oscar, Shay PA Unavailable Unavailable Oscar, Shay PA Unavailable Unavailable Oscar, Shay PA Unavailable Unavailable Oscar, Shay PA Unavailable Unavailable Oscar, Shay PA Unavailable Unavailable Oscar, Shay PA Unavailable Unavailable Oscar, Shay PA Unavailable Unavailable Oscar, Shay PA Unavailable Unavailable Oscar, Shay PA Unavailable Unavailable Oscar, Shay PA Unavailable Unavailable Oscar, Shay PA Unavailable Unavailable Oscar, Shay PA Unavailable Unavailable Oscar, Shay PA Unavailable Unavailable Oscar, Shay PA Unavailable Unavailable Oscar, Shay PA Unavailable Unavailable Oscar, Shay PA Unavailable Unavailable Oscar, Shay PA Unavailable Unavailable Oscar, Shay PA Unavailable Unavailable Oscar, Shay PA Unavailable Unavailable Oscar, Shay PA Unavailable Unavailable Oscar, Shay PA Unavailable Unavailable Oscar, Shay PA Unavailable Unavailable Oscar, Shay PA Unavailable Unavailable Oscar, Shay PA Unavailable Unavailable Oscar, Shay PA Unavailable Unavailable Oscar, Shay PA Unavailable Unavailable Oscar, Shay PA Unavailable Unavailable Oscar, Shay PA Unavailable Unavailable Oscar, Shay PA Unavailable Unavailable Oscar, Shay PA Unavailable Unavailable Oscar, Shay PA Unavailable Unavailable Oscar, Shay PA Unavailable Unavailable Oscar, Shay PA Unavailable Unavailable Oscar, Shay PA Unavailable Unavailable Oscar, Shay PA Unavailable Unavailable Oscar, Shay PA Unavailable Unavailable Oscar, Shay PA Unavailable Unavailable Oscar, Shay PA Unavailable Unavailable RING, K MAX PA Unavailable Unavailable RING, K MAX PA Unavailable Unavailable RING, K MAX PA Unavailable Unavailable RING, K MAX PA Unavailable Unavailable RING, K MAX PA Unavailable Unavailable RING, K MAX PA Unavailable Unavailable RING, K MAX PA Unavailable Unavailable RING, K MAX PA Unavailable Unavailable RING, K MAX PA Unavailable Unavailable RING, K MAX PA Unavailable Unavailable RING, K MAX PA Unavailable Unavailable RING, K MAX PA Unavailable Unavailable RING, K MAX PA Unavailable Unavailable RING, K MAX PA Unavailable Unavailable RING, K MAX PA Unavailable Unavailable RING, K MAX PA Unavailable Unavailable RING, K AMX PA Unavailable Unavailable RING, K MAX PA Unavailable Unavailable RING, K MAX PA Unavailable Unavailable RING, K MAX PA Unavailable Unavailable RING, K MAX PA Unavailable Unavailable Britton, Jyotsna SQUARING SHEAR OPERATOR Unavailable Unavailable Britton, Jyotsna SQUARING SHEAR OPERATOR Unavailable Unavailable Britton, Jyotsna SQUARING SHEAR OPERATOR Unavailable Unavailable Britton, Jyotsna SQUARING SHEAR OPERATOR Unavailable Unavailable Britton, Jyotsna SQUARING SHEAR OPERATOR Unavailable Unavailable Britton, Jyotsna SQUARING SHEAR OPERATOR Unavailable Unavailable Britton, Jyotsna SQUARING SHEAR OPERATOR Unavailable Unavailable Britton, Jyotsna SQUARING SHEAR OPERATOR Unavailable Unavailable Britton, Jyotsna SQUARING SHEAR OPERATOR Unavailable Unavailable Britton, Jyotsna SQUARING SHEAR OPERATOR Unavailable Unavailable Britton, Jyotsna SQUARING SHEAR OPERATOR Unavailable Unavailable Ureña, Gardenia Maile PA Unavailable Unavailable Ureña, Gardenia Maile PA Unavailable Unavailable Ureña, Gardenia Maile PA Unavailable Unavailable Ureña, Gardenia Maile PA Unavailable Unavailable Ureña, Gardenia Maile PA Unavailable Unavailable Ureña, Gardenia Maile PA Unavailable Unavailable Ureña, Gardenia Maile PA Unavailable Unavailable Ureña, Gardenia Maile PA Unavailable Unavailable Ureña, Gardenia Maile PA Unavailable Unavailable Ureña, Gardenia Maile PA Unavailable Unavailable O'rita, A Karmen PA Unavailable Unavailable O'rita, A Karmen PA Unavailable Unavailable O'rita, A Karmen PA Unavailable Unavailable O'rita, A Karmen PA Unavailable Unavailable O'rita, A Karmen PA Unavailable Unavailable O'rita, A Karmen PA Unavailable Unavailable O'rita, A Karmen PA Unavailable Unavailable O'rita, A Karmen PA Unavailable Unavailable O'rita, A Karmen PA Unavailable Unavailable O'rita, A Karmen PA Unavailable Unavailable O'rita, A Karmen PA Unavailable Unavailable O'rita, A Karmen PA Unavailable Unavailable O', A Karmen PA Unavailable Unavailable O'rita, A Karmen PA Unavailable Unavailable O', A Karmen PA Unavailable Unavailable O', A Karmen PA Unavailable Unavailable O', A Karmen PA Unavailable Unavailable O', A Karmen PA Unavailable Unavailable O', A Karmen PA Unavailable Unavailable ', A Karmen PA Unavailable Unavailable , A Karmen PA Unavailable Unavailable , A Karmen PA Unavailable Unavailable , A Karmen PA Unavailable Unavailable , A Karmen PA Unavailable Unavailable , A Karmen PA Unavailable Unavailable , A Kramen PA Unavailable Unavailable , A Karmen PA Unavailable Unavailable O, A Karmen PA Unavailable Unavailable O', A Karmen PA Unavailable Unavailable ', A Karmen PA Unavailable Unavailable O', A Karmen PA Unavailable Unavailable O', A Karmen PA Unavailable Unavailable O', A Karmen PA Unavailable Unavailable LETTIERE, A KARMEN PA Unavailable Unavailable LETTIERE, A KARMEN PA Unavailable Unavailable LETTIERE, A KARMEN PA Unavailable Unavailable LETTIERE, A KARMEN PA Unavailable Unavailable LETTIERE, A KARMEN PA Unavailable Unavailable LETTIERE, A KARMEN PA Unavailable Unavailable LETTIERE, A KARMEN PA Unavailable Unavailable LETTIERE, A KARMEN PA Unavailable Unavailable LETTIERE, A KARMEN PA Unavailable Unavailable LETTIERE, A KARMEN PA Unavailable Unavailable LETTIERE, A KARMEN PA Unavailable Unavailable LETTIERE, A KARMEN PA Unavailable Unavailable LETTIERE, A KARMEN PA Unavailable Unavailable LETTIERE, A KARMEN PA Unavailable Unavailable LETTIERE, A KARMEN PA Unavailable Unavailable LETTIERE, A KARMEN PA Unavailable Unavailable LETTIERE, A KARMEN PA Unavailable Unavailable LETTIERE, A KARMEN PA Unavailable Unavailable LETTIERE, A KARMEN PA Unavailable Unavailable LETTIERE, A KARMEN PA Unavailable Unavailable LETTIERE, A KARMEN PA Unavailable Unavailable LETTIERE, A KARMEN PA Unavailable Unavailable LETTIERE, A KARMEN PA Unavailable Unavailable LETTIERE, A KARMEN PA Unavailable Unavailable LETTIERE, A KARMEN PA Unavailable Unavailable LETTIERE, A KARMEN PA Unavailable Unavailable LETTIERE, A KARMEN PA Unavailable Unavailable LETTIERE, A KARMEN PA Unavailable Unavailable LETTIERE, A KARMEN PA Unavailable Unavailable Re-disclosure Warning The records that you are about to access may contain information from federally-assisted alcohol or drug abuse programs. If such information is present, then the following federally mandated warning applies: This information has been disclosed to you from records protected by federal confidentiality rules (42 CFR part 2). The federal rules prohibit you from making any further disclosure of this information unless further disclosure is expressly permitted by the written consent of the person to whom it pertains or as otherwise permitted by 42 CFR part 2. A general authorization for the release of medical or other information is NOT sufficient for this purpose. The Federal rules restrict any use of the information to criminally investigate or prosecute any alcohol or drug abuse patient.The records that you are about to access may contain highly sensitive health information, the redisclosure of which is protected by Article 27-F of the [facility] Public Health law. If you continue you may have access to information: Regarding HIV / AIDS; Provided by facilities licensed or operated by the [facility] Office of Mental Health; or Provided by the [facility] Office for People With Developmental Disabilities. If such information is present, then the following [facility] mandated warning applies: This information has been disclosed to you from confidential records which are protected by state law. State law prohibits you from making any further disclosure of this information without the specific written consent of the person to whom it pertains, or as otherwise permitted by law. Any unauthorized further disclosure in violation of state law may result in a fine or correction sentence or both. A general authorization for the release of medical or other information is NOT sufficient authorization for further disc losure. Family History Family Member Name Family Member Gender Family Member Status Date o f Status Description Data Source(s) Unknown Unknown Problem [facility] ([facility] Unknown Female Problem [facility] ([facility]) Unknown Female Encounters Encounter Providers Location Date Indications Data Source(s ) Outpatient Attender: Shay DISLA [facility] 09/26/2020 01:00:00 PM EDT [facility] ([facility]) Outpatient Attender: KARMEN Gil Prim [facility] 09/06/2020 01:00:00 PM EDT [facility] ([facility] Outpatient Attender: Maile Gil Prim [facility] 09/04/2020 05:45:00 PM EDT [facility] ([facility]) Outpatient Attender: Jyotsna Khan [facility] 08/23/2020 02:45:00 PM EDT [facility] ([facility]) Outpatient Attender: MAX Gil Primary 08/10/2020 12:25:00 PM EDT [facility] ([facility]) Outpatient Attender: Shay DISLA [facility] 06/20/2020 03:40:00 PM EDT [facility] ([facility]) Outpatient Attender: Shay DISLA [facility] 05/22/2020 01:40:00 PM EDT [facility] ([facility]) Outpatient Referrer: REX LARA MD 03/15/2020 02:21:00 PM EDT [facility] Outpatient Attender: Karmen DISLA [facility] 03/01/2020 10:20:00 AM EDT [facility] ([facility]) Outpatient Attender: Shay DISLA Family [facility] 01/22/2020 12:00:00 PM EST [facility] ([facility]) Outpatient Referrer: REX LARA MD 12/14/2019 10:12:00 AM EST [facility] Outpatient Referrer: REX LARA MD 12/08/2019 11:25:00 AM EST [facility] Outpatient Referrer: REX LARA MD 12/06/2019 04:40:00 PM EST [facility] Immunizations Vaccine Date Status Description Data Source(s) New in 2011. IIV4 09/26/2020 01:33:00 PM EDT completed [facility] ([facility]) Medications Medication Brand Name Start Date Product Form Dose Route Admi nistrative Instructions Pharmacy Instructions Status Indications Reaction Description Data Source(s) 4 mg 01/13/2021 12:00:00 AM EST tablet,disintegrating 3 0 DISSOLVE ONE TABLET ON TONGUE EVERY 4 HOURS FOR NAUSEA DISSOLVE ONE TABLET ON TONGUE EVERY 4 HO URS FOR NAUSEA SOLD: 01/13/2021 [facility] 1,000 mg 12/30/2020 12:00:00 AM EST tablet extended release 24 hr 30 TAKE ONE TABLET BY MOUTH AT BEDTIME TAKE ONE TABLET BY MOUTH AT BEDTIME SOLD: 01/07/2021 [facility] 600 mg 12/30/2020 12:00:00 AM EST tablet 270 TAKE ONE TABLET BY MOUTH THREE TIMES A DAY TAKE ONE TABLET BY MOUTH THREE TIMES A DAY SOLD: 01/07/2021 [facility] 5-325 mg 12/30/2020 12:00:00 AM EST tablet 30 TAKE ONE TABLET BY MOUTH EVERY 6 HOURS NEEDED FOR PAIN MAX=4TABS/DAY TAKE ONE TABLET BY MOUTH EVERY 6 HOURS NEEDED FOR PAIN MAX=4TABS/DAY SOLD: 01/07/2021 [facility] 400 mg (241.3 mg magnesium) 12/24/2020 12:00:00 AM EST table t 12 TAKE ONE TABLET BY MOUTH ON WEDNESDAY, WEDNESDAY, AND WEDNESDAY TAKE ONE TABLET BY MOUTH ON WEDNESDAY, WEDNESDAY, AND WEDNESDAY SOLD: 12/24/2020 [facility] 100 mg 12/23/2020 12:00:00 AM EST capsule 30 TAKE ONE CAPSULE BY MOUTH EVERY DAY TAKE ONE CAPSULE BY MOUTH EVERY DAY SOLD: 12/24/2020 [facility] 100 mg 12/21/2020 12:00:00 AM EST capsule 60 TAKE TWO CAPSULES BY MOUTH EVERY DAY TAKE TWO CAPSULES BY MOUTH EVERY DAY SOLD: 01/13/2021 [facility] 100 mg 12/21/2020 12:00:00 AM EST capsule 60 TAKE TWO CAPSULES BY MOUTH EVERY DAY TAKE TWO CAPSULES BY MOUTH EVERY DAY SOLD: 12/24/2020 [facility] 100 mg 12/10/2020 12:00:00 AM EST tablet 60 TAKE ONE TABLET BY MOUTH EVERY DAY TAKE ONE TABLET BY MOUTH EVERY DAY SOLD: 12/14/2020 [facility] 40 mg 12/10/2020 12:00:00 AM EST tablet 60 TAKE ONE TABLET BY MOUTH TWICE A DAY TAKE ONE TABLET BY MOUTH TWICE A DAY SOLD: 01/07/2021 [facility] 100 mg 12/10/2020 12:00:00 AM EST tablet 60 TAKE ONE TABLET BY MOUTH EVERY DAY TAKE ONE TABLET BY MOUTH EVERY DAY SOLD: 01/07/2021 [facility] 40 mg 12/10/2020 12:00:00 AM EST tablet 60 TAKE ONE TABLET BY MOUTH TWICE A DAY TAKE ONE TABLET BY MOUTH TWICE A DAY SOLD: 12/14/2020 [facility] 40 mg 12/04/2020 12:00:00 AM EST capsule 30 TAKE ONE CAPSULE BY MOUTH EVERY DAY TAKE ONE CAPSULE BY MOUTH EVERY DAY SOLD: 01/07/2021 [facility] 40 mg 12/04/2020 12:00:00 AM EST capsule 30 TAKE ONE CAPSULE BY MOUTH EVERY DAY TAKE ONE CAPSULE BY MOUTH EVERY DAY SOLD: 12/07/2020 [facility] 150 mg 12/04/2020 12:00:00 AM EST tablet sustained-releas e 12 hr 60 TAKE ONE TABLET BY MOUTH TWICE A DAY TAKE ONE TABLET BY MOUTH TWICE A DAY SOLD: 12/07/2020 [facility] 5 mg 12/04/2020 12:00:00 AM EST tablet extended release 24hr 30 TAKE ONE TABLET BY MOUTH EVERY DAY TAKE ONE TABLET BY MOUTH EVERY DAY SOLD: 12/07/2020 [facility] 5 mg 12/04/2020 12:00:00 AM EST tablet extended release 24hr 30 TAKE ONE TABLET BY MOUTH EVERY DAY TAKE ONE TABLET BY MOUTH EVERY DAY SOLD: 01/07/2021 [facility] 24 HR Bupropion Hydrochloride 150 MG Extended Release Oral T ablet BUPROPION HCL 11/20/2020 12:00:00 AM EST tablet extended release 24 hr 60 TAKE ONE TABLET BY MOUTH TWICE A DAY TAKE ONE TABLET BY MOUTH TWICE A DAY SOLD: 11/20/2020 [facility] 1,000 mg 11/20/2020 12:00:00 AM EST tablet extended release 24 hr 30 TAKE ONE TABLET BY MOUTH EVERY DAY TAKE ONE TABLET BY MOUTH EVERY DAY SOLD: 11/20/2020 [facility] 5 mg 11/20/2020 12:00:00 AM EST tablet 30 TAKE ONE TABLET BY MOUTH EVERY DAY TAKE ONE TABLET BY MOUTH EVERY DAY SOLD: 11/20/2020 [facility] 100 mg 11/20/2020 12:00:00 AM EST capsule 60 TAKE ONE CAPSULE BY MOUTH TWICE A DAY TAKE ONE CAPSULE BY MOUTH TWICE A DAY SOLD: 11/20/2020 [facility] 25 mg 11/20/2020 12:00:00 AM EST tablet 60 TAKE ONE TABLET BY MOUTH TWICE A DAY TAKE ONE TABLET BY MOUTH TWICE A DAY SOLD: 11/20/2020 [facility] 600 mg 11/20/2020 12:00:00 AM EST tablet 90 TAKE ONE TABLET BY MOUTH THREE TIMES A DAY TAKE ONE TABLET BY MOUTH THREE TIMES A DAY SOLD: 11/20/2020 [facility] 5-325 mg 11/19/2020 12:00:00 AM EST tablet 120 TAKE ONE TABLET BY MOUTH EVERY 6 HOURS NEEDED FOR PAIN MAXIMUM DAILY DOSE = 4 TAKE ONE TABLET BY MOUTH EVERY 6 HOURS NEEDED FOR PAIN MAXIMUM DAILY DOSE = 4 SOLD: 11/19/2020 [facility] 0.25 mcg 11/19/2020 12:00:00 AM EST capsule 12 TAKE ONE CAPSULE BY MOUTH ON WEDNESDAY, WEDNESDAY, AND WEDNESDAY TAKE ONE CAPSULE BY MOUTH ON WEDNESDAY, Wed, AND WEDNESDAY SOLD: 11/19/2020 [facility] 400 mg (241.3 mg magnesium) 11/19/2020 12:00:00 AM EST table t 12 TAKE 1 TABLET BY MOUTH ON MONDAYS, WEDNESDAYS AND FRIDAYS TAKE 1 TABLET BY MOUTH ON MONDAYS, WEDNESDAYS AND FRIDAYS SOLD: 11/19/2020 [facility] 25 mg 11/05/2020 12:00:00 AM EST tablet 28 TAKE ONE TABLET BY MOUTH TWO TIMES A DAY TAKE ONE TABLET BY MOUTH TWO TIMES A DAY SOLD: 11/06/2020 [facility] doxycycline hyclate 100 MG Oral Tablet DOXYCYCLINE HYCLATE 1 01/06/2020 12:00:00 AM EST tablet 9 TAKE ONE TABLET BY MOUTH TWI CE A DAY TAKE ONE TABLET BY MOUTH TWICE A DAY SOLD: 11/06/2020 [facility] 250 mg 11/05/2020 12:00:00 AM EST tablet 4 TAKE ONE TABLET BY MOUTH AT 6AM TAKE ONE TABLET BY MOUTH AT 6AM SOLD: 11/06/2020 [facility] 5 mg 11/05/2020 12:00:00 AM EST tablet 60 TAKE ONE TABLET BY MOUTH TWICE A DAY TAKE ONE TABLET BY MOUTH TWICE A DAY SOLD: 11/06/2020 [facility] 5-325 mg 09/27/2020 12:00:00 AM EDT tablet 30 TAKE ONE TABLET BY MOUTH EVERY 6 HOURS NEEDED FOR PAIN MAX=4TABS/DAY TAKE ONE TABLET BY MOUTH EVERY 6 HOURS NEEDED FOR PAIN MAX=4TABS/DAY SOLD: 09/28/2020 [facility] 100 mg 09/26/2020 12:00:00 AM EDT tablet 90 TAKE ONE TABLET BY MOUTH EVERY DAY TAKE ONE TABLET BY MOUTH EVERY DAY SOLD: 09/28/2020 [facility] 1,000 mg 09/18/2020 12:00:00 AM EDT tablet extended release 24 hr 30 TAKE ONE TABLET BY MOUTH AT BEDTIME TAKE ONE TABLET BY MOUTH AT BEDTIME SOLD: 09/20/2020 [facility] 1,000 mg 09/18/2020 12:00:00 AM EDT tablet extended release 24 hr 30 TAKE ONE TABLET BY MOUTH AT BEDTIME TAKE ONE TABLET BY MOUTH AT BEDTIME SOLD: 10/22/2020 [facility] 100 mg 09/06/2020 12:00:00 AM EDT capsule 14 TAKE ONE CAPSULE BY MOUTH TWO TIMES A DAY FOR 7 DAYS TAKE ONE CAPSULE BY MOUTH TWO TIMES A DAY FOR 7 DAYS SOLD: 09/06/2020 [facility] Rocephin/Ceftriaxone Sodium Injection Per 250 MG 09/06 12:00:00 AM EDT completed [facility] ([facility]) Medication administered onsite NITROFURANTOIN, MACROCRYSTALS 25 MG / Ni trofurantoin, Monohydrate 75 MG Oral Capsule Nitrofurantoin Monohyd Macro 09/06/2020 12:00:00 AM EDT ORAL active [facility] ([facility]) Rocephin/Ceftriaxone Sodium Injection Per 250 MG 09/05 12:00:00 AM EDT completed [facility] ([facility]) Medication administered onsite Rocephin/Ceftriaxone Sodium Injection Per 250 MG 09/04 12:00:00 AM EDT completed [facility] ([facility]) Medication administered onsite Cephalexin 500 MG Oral Capsule Cephalexin 08/23/2020 12:00:00 AM EDT ORAL completed [facility] ([facility]) Cephalexin 250 MG Oral Capsule Cephalexin 08/23/2020 12:00:00 AM EDT ORAL completed [facility] ([facility]) 250 mg 08/23/2020 12:00:00 AM EDT capsule 14 TAKE ONE CAPSULE BY MOUTH TWICE A DAY FOR 7 DAYS TAKE ONE CAPSULE BY MOUTH TWICE A DAY FOR 7 DAYS SOLD: 08/23/2020 [facility] 100 mg 08/16/2020 12:00:00 AM EDT capsule 60 TAKE TWO CAPSULES BY MOUTH EVERY DAY TAKE TWO CAPSULES BY MOUTH EVERY DAY SOLD: 10/22/2020 [facility] 100 mg 08/16/2020 12:00:00 AM EDT capsule 60 TAKE TWO CAPSULES BY MOUTH EVERY DAY TAKE TWO CAPSULES BY MOUTH EVERY DAY SOLD: 09/18/2020 [facility] 40 mg 08/16/2020 12:00:00 AM EDT tablet 60 TAKE ONE TABLET BY MOUTH TWICE A DAY TAKE ONE TABLET BY MOUTH TWICE A DAY SOLD: 10/18/2020 [facility] 100 mg 08/16/2020 12:00:00 AM EDT capsule 60 TAKE TWO CAPSULES BY MOUTH EVERY DAY TAKE TWO CAPSULES BY MOUTH EVERY DAY SOLD: 08/19/2020 [facility] 40 mg 08/16/2020 12:00:00 AM EDT tablet 60 TAKE ONE TABLET BY MOUTH TWICE A DAY TAKE ONE TABLET BY MOUTH TWICE A DAY SOLD: 08/19/2020 [facility] 40 mg 08/16/2020 12:00:00 AM EDT tablet 60 TAKE ONE TABLET BY MOUTH TWICE A DAY TAKE ONE TABLET BY MOUTH TWICE A DAY SOLD: 09/18/2020 [facility] 40 mg 08/16/2020 12:00:00 AM EDT tablet 60 TAKE ONE TABLET BY MOUTH TWICE A DAY TAKE ONE TABLET BY MOUTH TWICE A DAY SOLD: 11/18/2020 [facility] Docusate Sodium 100 MG Oral Capsule [DOK] Dok 08/15/2020 12:00:0 0 AM EDT active [facility] ([facility]) 20 mg 08/15/2020 12:00:00 AM EDT tablet 30 TAKE ONE TABLET BY MOUTH EVERY DAY TAKE ONE TABLET BY MOUTH EVERY DAY SOLD: 08/19/2020 [facility] 20 mg 08/15/2020 12:00:00 AM EDT tablet 30 TAKE ONE TABLET BY MOUTH EVERY DAY TAKE ONE TABLET BY MOUTH EVERY DAY SOLD: 12/24/2020 [facility] 20 mg 08/15/2020 12:00:00 AM EDT tablet 30 TAKE ONE TABLET BY MOUTH EVERY DAY TAKE ONE TABLET BY MOUTH EVERY DAY SOLD: 09/18/2020 [facility] 20 mg 08/15/2020 12:00:00 AM EDT tablet 30 TAKE ONE TABLET BY MOUTH EVERY DAY TAKE ONE TABLET BY MOUTH EVERY DAY SOLD: 11/18/2020 [facility] 20 mg 08/15/2020 12:00:00 AM EDT tablet 30 TAKE ONE TABLET BY MOUTH EVERY DAY TAKE ONE TABLET BY MOUTH EVERY DAY SOLD: 10/18/2020 [facility] Cephalexin 500 MG Oral Tablet Cephalexin 08/10/2020 12:00:00 AM EDT ORAL completed [facility] ([facility]) Cephalexin 500 MG Oral Capsule CEPHALEXIN 08/10/2020 12:00:00 AM EDT capsule 14 TAKE ONE CAPSULE BY MOUTH EVERY 12 HOURS FOR 7 DAYS TA KE ONE CAPSULE BY MOUTH EVERY 12 HOURS FOR 7 DAYS SOLD: 08/10/2020 [facility] Cephalexin 500 MG Oral Capsule CEPHALEXIN 06/24/2020 12:00:00 AM EDT capsule 21 TAKE ONE CAPSULE BY MOUTH THREE TIMES A DAY UNTIL GONE TAKE ONE CAPSULE BY MOUTH THREE TIMES A DAY UNTIL GONE SOLD: 06/26/2020 [facility] Cephalexin 500 MG Oral Capsule Cephalexin 06/24/2020 12:00:00 AM EDT ORAL completed [facility] ([facility]) 100 mg 06/20/2020 12:00:00 AM EDT capsule 20 TAKE ONE CAPSULE BY MOUTH EVERY 12 HOURS UNTIL GONE TAKE ONE CAPSULE BY MOUTH EVERY 12 HOURS UNTIL GONE SO LD: 06/21/2020 [facility] NITROFURANTOIN, MACROCRYSTALS 25 MG / Ni trofurantoin, Monohydrate 75 MG Oral Capsule [Macrobid] Macrobid 06/20/2020 12:00:00 AM EDT ORAL completed [facility] ([facility]) 100 mg 06/10/2020 12:00:00 AM EDT capsule 30 TAKE ONE CAPSULE BY MOUTH EVERY DAY TAKE ONE CAPSULE BY MOUTH EVERY DAY SOLD: 10/14/2020 [facility] 5 mg 06/10/2020 12:00:00 AM EDT tablet extended release 24hr 30 TAKE ONE TABLET BY MOUTH EVERY DAY TAKE ONE TABLET BY MOUTH EVERY DAY SOLD: 07/10/2020 [facility] 40 mg 06/10/2020 12:00:00 AM EDT capsule 30 TAKE ONE CAPSULE BY MOUTH EVERY DAY TAKE ONE CAPSULE BY MOUTH EVERY DAY SOLD: 09/10/2020 [facility] 150 mg 06/10/2020 12:00:00 AM EDT tablet sustained-releas e 12 hr 60 TAKE ONE TABLET BY MOUTH TWICE A DAY TAKE ONE TABLET BY MOUTH TWICE A DAY SOLD: 10/08/2020 [facility] 150 mg 06/10/2020 12:00:00 AM EDT tablet sustained-releas e 12 hr 60 TAKE ONE TABLET BY MOUTH TWICE A DAY TAKE ONE TABLET BY MOUTH TWICE A DAY SOLD: 09/10/2020 [facility] 150 mg 06/10/2020 12:00:00 AM EDT tablet sustained-releas e 12 hr 60 TAKE ONE TABLET BY MOUTH TWICE A DAY TAKE ONE TABLET BY MOUTH TWICE A DAY SOLD: 11/06/2020 [facility] 100 mg 06/10/2020 12:00:00 AM EDT capsule 30 TAKE ONE CAPSULE BY MOUTH EVERY DAY TAKE ONE CAPSULE BY MOUTH EVERY DAY SOLD: 07/10/2020 [facility] 40 mg 06/10/2020 12:00:00 AM EDT capsule 30 TAKE ONE CAPSULE BY MOUTH EVERY DAY TAKE ONE CAPSULE BY MOUTH EVERY DAY SOLD: 11/06/2020 [facility] 150 mg 06/10/2020 12:00:00 AM EDT tablet sustained-releas e 12 hr 60 TAKE ONE TABLET BY MOUTH TWICE A DAY TAKE ONE TABLET BY MOUTH TWICE A DAY SOLD: 08/10/2020 [facility] 100 mg 06/10/2020 12:00:00 AM EDT capsule 30 TAKE ONE CAPSULE BY MOUTH EVERY DAY TAKE ONE CAPSULE BY MOUTH EVERY DAY SOLD: 11/18/2020 [facility] 40 mg 06/10/2020 12:00:00 AM EDT capsule 30 TAKE ONE CAPSULE BY MOUTH EVERY DAY TAKE ONE CAPSULE BY MOUTH EVERY DAY SOLD: 07/10/2020 [facility] 5 mg 06/10/2020 12:00:00 AM EDT tablet extended release 24hr 30 TAKE ONE TABLET BY MOUTH EVERY DAY TAKE ONE TABLET BY MOUTH EVERY DAY SOLD: 11/06/2020 [facility] 5 mg 06/10/2020 12:00:00 AM EDT tablet extended release 24hr 30 TAKE ONE TABLET BY MOUTH EVERY DAY TAKE ONE TABLET BY MOUTH EVERY DAY SOLD: 09/10/2020 [facility] 5 mg 06/10/2020 12:00:00 AM EDT tablet extended release 24hr 30 TAKE ONE TABLET BY MOUTH EVERY DAY TAKE ONE TABLET BY MOUTH EVERY DAY SOLD: 08/10/2020 [facility] 150 mg 06/10/2020 12:00:00 AM EDT tablet sustained-releas e 12 hr 60 TAKE ONE TABLET BY MOUTH TWICE A DAY TAKE ONE TABLET BY MOUTH TWICE A DAY SOLD: 06/11/2020 [facility] 100 mg 06/10/2020 12:00:00 AM EDT capsule 30 TAKE ONE CAPSULE BY MOUTH EVERY DAY TAKE ONE CAPSULE BY MOUTH EVERY DAY SOLD: 09/13/2020 [facility] 5 mg 06/10/2020 12:00:00 AM EDT tablet extended release 24hr 30 TAKE ONE TABLET BY MOUTH EVERY DAY TAKE ONE TABLET BY MOUTH EVERY DAY SOLD: 06/11/2020 [facility] 100 mg 06/10/2020 12:00:00 AM EDT capsule 30 TAKE ONE CAPSULE BY MOUTH EVERY DAY TAKE ONE CAPSULE BY MOUTH EVERY DAY SOLD: 08/10/2020 [facility] 40 mg 06/10/2020 12:00:00 AM EDT capsule 30 TAKE ONE CAPSULE BY MOUTH EVERY DAY TAKE ONE CAPSULE BY MOUTH EVERY DAY SOLD: 10/08/2020 [facility] 100 mg 06/10/2020 12:00:00 AM EDT capsule 30 TAKE ONE CAPSULE BY MOUTH EVERY DAY TAKE ONE CAPSULE BY MOUTH EVERY DAY SOLD: 06/11/2020 [facility] 300 mg 06/10/2020 12:00:00 AM EDT tablet 30 TAKE ONE TABLET BY MOUTH EVERY DAY TAKE ONE TABLET BY MOUTH EVERY DAY SOLD: 08/10/2020 [facility] 300 mg 06/10/2020 12:00:00 AM EDT tablet 30 TAKE ONE TABLET BY MOUTH EVERY DAY TAKE ONE TABLET BY MOUTH EVERY DAY SOLD: 07/10/2020 [facility] 150 mg 06/10/2020 12:00:00 AM EDT tablet sustained-releas e 12 hr 60 TAKE ONE TABLET BY MOUTH TWICE A DAY TAKE ONE TABLET BY MOUTH TWICE A DAY SOLD: 07/10/2020 [facility] 40 mg 06/10/2020 12:00:00 AM EDT capsule 30 TAKE ONE CAPSULE BY MOUTH EVERY DAY TAKE ONE CAPSULE BY MOUTH EVERY DAY SOLD: 06/11/2020 [facility] 300 mg 06/10/2020 12:00:00 AM EDT tablet 30 TAKE ONE TABLET BY MOUTH EVERY DAY TAKE ONE TABLET BY MOUTH EVERY DAY SOLD: 09/10/2020 [facility] 40 mg 06/10/2020 12:00:00 AM EDT capsule 30 TAKE ONE CAPSULE BY MOUTH EVERY DAY TAKE ONE CAPSULE BY MOUTH EVERY DAY SOLD: 08/10/2020 [facility] 300 mg 06/10/2020 12:00:00 AM EDT tablet 30 TAKE ONE TABLET BY MOUTH EVERY DAY TAKE ONE TABLET BY MOUTH EVERY DAY SOLD: 06/11/2020 [facility] 5 mg 06/10/2020 12:00:00 AM EDT tablet extended release 24hr 30 TAKE ONE TABLET BY MOUTH EVERY DAY TAKE ONE TABLET BY MOUTH EVERY DAY SOLD: 10/08/2020 [facility] 0.25 mcg 05/23/2020 12:00:00 AM EDT capsule 60 TAKE ONE CAPSULE BY MOUTH FIVE TIMES A WEEK WEDNESDAY THROUGH WEDNESDAY TAKE ONE CAPSULE BY MOUTH FIVE TIMES A WEEK WEDNESDAY THROUGH WEDNESDAY SOLD: 08/19/2020 [facility] Calcitriol 0.23657 MG Oral Capsule 0.25 mcg CALCITRIOL 05/23/2020 12:00:00 AM EDT capsule 60 TAKE ONE CAPSULE BY MOUTH FIVE TIMES A WEEK WEDNESDAY THROUGH WEDNESDAY TAKE ONE CAPSULE BY MOUTH FIVE TIMES A WEEK Wednesday SOLD: 05/30/2020 [facility] 5-325 mg 05/22/2020 12:00:00 AM EDT tablet 30 TAKE ONE TABLET BY MOUTH EVERY 6 HOURS NEEDED FOR PAIN MAXIMUM DAILY DOSE = 4 TABLETS TAKE ONE TABLET BY MOUTH EVERY 6 HOURS NEEDED FOR PAIN MAXIMUM DAILY DOSE = 4 TABLETS SOLD: 05/22/2020 [facility] Levofloxacin 750 MG Oral Tablet [Levaquin] Levaquin 03/05 12:00:00 AM EDT ORAL completed [facility] ([facility]) 750 mg 03/05/2020 12:00:00 AM EDT tablet 7 TAKE ONE TABLET BY MOUTH EVERY DAY FOR 7 DAYS TAKE ONE TABLET BY MOUTH EVERY DAY FOR 7 DAYS SOLD: 03/06/2020 [facility] Cephalexin 500 MG Oral Capsule Cephalexin 03/03/2020 12:00:00 AM EDT ORAL completed [facility] ([facility]) NITROFURANTOIN, MACROCRYSTALS 100 MG Oral Capsule Nitrofuran toin Macrocrystal 03/01/2020 12:00:00 AM EDT ORAL completed [facility] ([facility]) 100 mg 03/01/2020 12:00:00 AM EDT capsule 20 TAKE ONE CAPSULE BY MOUTH EVERY 12 HOURS FOR 10 DAYS TAKE ONE CAPSULE BY MOUTH EVERY 12 HOURS FOR 10 DAYS S OLD: 03/02/2020 [facility] 150 mg 01/29/2020 12:00:00 AM EST tablet sustained-releas e 12 hr 60 TAKE ONE TABLET BY MOUTH TWICE A DAY TAKE ONE TABLET BY MOUTH TWICE A DAY SOLD: 02/02/2020 [facility] 1,000 mg 01/29/2020 12:00:00 AM EST tablet extended release 24 hr 30 TAKE ONE TABLET BY MOUTH AT BEDTIME TAKE ONE TABLET BY MOUTH AT BEDTIME SOLD: 05/06/2020 [facility] 1,000 mg 01/29/2020 12:00:00 AM EST tablet extended release 24 hr 30 TAKE ONE TABLET BY MOUTH AT BEDTIME TAKE ONE TABLET BY MOUTH AT BEDTIME SOLD: 03/02/2020 [facility] 1,000 mg 01/29/2020 12:00:00 AM EST tablet extended release 24 hr 30 TAKE ONE TABLET BY MOUTH AT BEDTIME TAKE ONE TABLET BY MOUTH AT BEDTIME SOLD: 04/01/2020 [facility] 1,000 mg 01/29/2020 12:00:00 AM EST tablet extended release 24 hr 30 TAKE ONE TABLET BY MOUTH AT BEDTIME TAKE ONE TABLET BY MOUTH AT BEDTIME SOLD: 06/10/2020 [facility] 150 mg 01/29/2020 12:00:00 AM EST tablet sustained-releas e 12 hr 60 TAKE ONE TABLET BY MOUTH TWICE A DAY TAKE ONE TABLET BY MOUTH TWICE A DAY SOLD: 03/02/2020 [facility] 150 mg 01/29/2020 12:00:00 AM EST tablet sustained-releas e 12 hr 60 TAKE ONE TABLET BY MOUTH TWICE A DAY TAKE ONE TABLET BY MOUTH TWICE A DAY SOLD: 04/01/2020 [facility] 150 mg 01/29/2020 12:00:00 AM EST tablet sustained-releas e 12 hr 60 TAKE ONE TABLET BY MOUTH TWICE A DAY TAKE ONE TABLET BY MOUTH TWICE A DAY SOLD: 05/06/2020 [facility] 1,000 mg 01/29/2020 12:00:00 AM EST tablet extended release 24 hr 30 TAKE ONE TABLET BY MOUTH AT BEDTIME TAKE ONE TABLET BY MOUTH AT BEDTIME SOLD: 02/02/2020 [facility] 1,000 mg 01/29/2020 12:00:00 AM EST tablet extended release 24 hr 30 TAKE ONE TABLET BY MOUTH AT BEDTIME TAKE ONE TABLET BY MOUTH AT BEDTIME SOLD: 07/23/2020 [facility] 40 mg 01/23/2020 12:00:00 AM EST tablet 60 TAKE ONE TABLET BY MOUTH TWICE A DAY TAKE ONE TABLET BY MOUTH TWICE A DAY SOLD: 03/02/2020 [facility] 100 mg 01/23/2020 12:00:00 AM EST tablet 60 TAKE ONE TABLET BY MOUTH EVERY DAY TAKE ONE TABLET BY MOUTH EVERY DAY SOLD: 04/26/2020 [facility] 20 mg 01/23/2020 12:00:00 AM EST tablet 30 TAKE ONE TABLET BY MOUTH EVERY DAY TAKE ONE TABLET BY MOUTH EVERY DAY SOLD: 06/10/2020 [facility] 100 mg 01/23/2020 12:00:00 AM EST tablet 60 TAKE ONE TABLET BY MOUTH EVERY DAY TAKE ONE TABLET BY MOUTH EVERY DAY SOLD: 01/24/2020 [facility] 100 mg 01/23/2020 12:00:00 AM EST tablet 60 TAKE ONE TABLET BY MOUTH EVERY DAY TAKE ONE TABLET BY MOUTH EVERY DAY SOLD: 10/22/2020 [facility] 40 mg 01/23/2020 12:00:00 AM EST tablet 60 TAKE ONE TABLET BY MOUTH TWICE A DAY TAKE ONE TABLET BY MOUTH TWICE A DAY SOLD: 01/24/2020 [facility] 20 mg 01/23/2020 12:00:00 AM EST tablet 30 TAKE ONE TABLET BY MOUTH EVERY DAY TAKE ONE TABLET BY MOUTH EVERY DAY SOLD: 03/02/2020 [facility] Calcitriol 0.48287 MG Oral Capsule 0.25 mcg CALCITRIOL 01/23/2020 12:00:00 AM EST capsule 24 TAKE 1 CAPSULE BY MOUTH ON AND FRIDAYS TAKE 1 CAPSULE BY MOUTH ON MONDAYS AND FRIDAYS SOLD: 04/17/2020 [facility] 600 mg 01/23/2020 12:00:00 AM EST tablet 270 TAKE ONE TABLET BY MOUTH THREE TIMES A DAY TAKE ONE TABLET BY MOUTH THREE TIMES A DAY SOLD: 06/10/2020 [facility] 20 mg 01/23/2020 12:00:00 AM EST tablet 30 TAKE ONE TABLET BY MOUTH EVERY DAY TAKE ONE TABLET BY MOUTH EVERY DAY SOLD: 07/15/2020 [facility] 600 mg 01/23/2020 12:00:00 AM EST tablet 270 TAKE ONE TABLET BY MOUTH THREE TIMES A DAY TAKE ONE TABLET BY MOUTH THREE TIMES A DAY SOLD: 01/24/2020 [facility] 100 mg 01/23/2020 12:00:00 AM EST tablet 60 TAKE ONE TABLET BY MOUTH EVERY DAY TAKE ONE TABLET BY MOUTH EVERY DAY SOLD: 07/02/2020 [facility] 20 mg 01/23/2020 12:00:00 AM EST tablet 30 TAKE ONE TABLET BY MOUTH EVERY DAY TAKE ONE TABLET BY MOUTH EVERY DAY SOLD: 04/01/2020 [facility] Calcitriol 0.39201 MG Oral Capsule 0.25 mcg CALCITRIOL 01/23/2020 12:00:00 AM EST capsule 24 TAKE 1 CAPSULE BY MOUTH ON AND FRIDAYS TAKE 1 CAPSULE BY MOUTH ON MONDAYS AND FRIDAYS SOLD: 01/24/2020 [facility] 20 mg 01/23/2020 12:00:00 AM EST tablet 30 TAKE ONE TABLET BY MOUTH EVERY DAY TAKE ONE TABLET BY MOUTH EVERY DAY SOLD: 05/06/2020 [facility] 40 mg 01/23/2020 12:00:00 AM EST tablet 60 TAKE ONE TABLET BY MOUTH TWICE A DAY TAKE ONE TABLET BY MOUTH TWICE A DAY SOLD: 07/15/2020 [facility] 40 mg 01/23/2020 12:00:00 AM EST tablet 60 TAKE ONE TABLET BY MOUTH TWICE A DAY TAKE ONE TABLET BY MOUTH TWICE A DAY SOLD: 06/10/2020 [facility] 100 mg 01/23/2020 12:00:00 AM EST tablet 60 TAKE ONE TABLET BY MOUTH EVERY DAY TAKE ONE TABLET BY MOUTH EVERY DAY SOLD: 08/19/2020 [facility] 20 mg 01/23/2020 12:00:00 AM EST tablet 30 TAKE ONE TABLET BY MOUTH EVERY DAY TAKE ONE TABLET BY MOUTH EVERY DAY SOLD: 01/24/2020 [facility] 40 mg 01/23/2020 12:00:00 AM EST tablet 60 TAKE ONE TABLET BY MOUTH TWICE A DAY TAKE ONE TABLET BY MOUTH TWICE A DAY SOLD: 04/01/2020 [facility] 40 mg 01/23/2020 12:00:00 AM EST tablet 60 TAKE ONE TABLET BY MOUTH TWICE A DAY TAKE ONE TABLET BY MOUTH TWICE A DAY SOLD: 05/06/2020 [facility] 100 mg 01/22/2020 12:00:00 AM EST capsule 60 TAKE TWO CAPSULES BY MOUTH EVERY DAY TAKE TWO CAPSULES BY MOUTH EVERY DAY SOLD: 05/06/2020 [facility] 5-325 mg 01/22/2020 12:00:00 AM EST tablet 30 TAKE ONE TABLET BY MOUTH EVERY 6 HOURS NEEDED FOR PAIN MAXIMUM DAILY DOSE = 4 TABLETS TAKE ONE TABLET BY MOUTH EVERY 6 HOURS NEEDED FOR PAIN MAXIMUM DAILY DOSE = 4 TABLETS SOLD: 01/24/2020 [facility] 100 mg 01/22/2020 12:00:00 AM EST capsule 60 TAKE TWO CAPSULES BY MOUTH EVERY DAY TAKE TWO CAPSULES BY MOUTH EVERY DAY SOLD: 01/24/2020 [facility] 100 mg 01/22/2020 12:00:00 AM EST capsule 60 TAKE TWO CAPSULES BY MOUTH EVERY DAY TAKE TWO CAPSULES BY MOUTH EVERY DAY SOLD: 07/15/2020 [facility] 100 mg 01/22/2020 12:00:00 AM EST capsule 60 TAKE TWO CAPSULES BY MOUTH EVERY DAY TAKE TWO CAPSULES BY MOUTH EVERY DAY SOLD: 04/01/2020 [facility] 100 mg 01/22/2020 12:00:00 AM EST capsule 60 TAKE TWO CAPSULES BY MOUTH EVERY DAY TAKE TWO CAPSULES BY MOUTH EVERY DAY SOLD: 03/02/2020 [facility] 100 mg 01/22/2020 12:00:00 AM EST capsule 60 TAKE TWO CAPSULES BY MOUTH EVERY DAY TAKE TWO CAPSULES BY MOUTH EVERY DAY SOLD: 06/10/2020 [facility] 500-125 mg 01/15/2020 12:00:00 AM EST tablet 6 TAKE ONE TABLET BY MOUTH TWICE A DAY TAKE ONE TABLET BY MOUTH TWICE A DAY SOLD: 01/15/2020 [facility] 1,000 mg 01/06/2020 12:00:00 AM EST tablet extended release 24 hr 30 TAKE ONE TABLET BY MOUTH AT BEDTIME TAKE ONE TABLET BY MOUTH AT BEDTIME SOLD: 01/15/2020 [facility] 400 mg (241.3 mg magnesium) 12/18/2019 12:00:00 AM EST table t 12 TAKE ONE TABLET BY MOUTH ON Wednesday AND WEDNESDAY OF EACH WEEK TAKE ONE TABLET BY MOUTH ON Wednesday AND WEDNESDAY OF EACH WEEK SOLD: 12/18/2019 [facility] 600 mg 12/17/2019 12:00:00 AM EST tablet 60 TAKE ONE TABLET BY MOUTH TWICE A DAY TAKE ONE TABLET BY MOUTH TWICE A DAY SOLD: 12/18/2019 [facility] 81 mg 12/15/2019 12:00:00 AM EST tablet,delayed release (DR/EC) 30 TAKE ONE TABLET BY MOUTH EVERY DAY 1/2 HOUR PRIOR TO TAKING NIACIN AT BEDTIME TAKE ONE TABLET BY MOUTH EVERY DAY 1/2 HOUR PRIOR TO TAKING NIACIN AT BEDTIME SOLD: 12/16/2019 [facility] 20 mg 12/15/2019 12:00:00 AM EST tablet 30 TAKE ONE TABLET BY MOUTH AT BEDTIME TAKE ONE TABLET BY MOUTH AT BEDTIME SOLD: 12/16/2019 [facility] 100 mg 12/15/2019 12:00:00 AM EST capsule 60 TAKE TWO CAPSULES BY MOUTH EVERY DAY TAKE TWO CAPSULES BY MOUTH EVERY DAY SOLD: 12/16/2019 [facility] 40 mg 12/15/2019 12:00:00 AM EST tablet 90 TAKE TWO TABLETS BY MOUTH EVERY MORNING AND 1 IN THE AFTERNOON TAKE TWO TABLETS BY MOUTH EVERY MORNING AND 1 IN THE AFTERNOON SOLD: 12/16/2019 [facility] 40 mg 12/04/2019 12:00:00 AM EST capsule 30 TAKE ONE CAPSULE BY MOUTH EVERY DAY TAKE ONE CAPSULE BY MOUTH EVERY DAY SOLD: 12/09/2019 [facility] 5 mg 12/04/2019 12:00:00 AM EST tablet extended release 24hr 30 TAKE ONE TABLET BY MOUTH EVERY DAY TAKE ONE TABLET BY MOUTH EVERY DAY SOLD: 03/19/2020 [facility] 5 mg 12/04/2019 12:00:00 AM EST tablet extended release 24hr 30 TAKE ONE TABLET BY MOUTH EVERY DAY TAKE ONE TABLET BY MOUTH EVERY DAY SOLD: 04/17/2020 [facility] 300 mg 12/04/2019 12:00:00 AM EST tablet 30 TAKE ONE TABLET BY MOUTH EVERY DAY TAKE ONE TABLET BY MOUTH EVERY DAY SOLD: 05/20/2020 [facility] 5 mg 12/04/2019 12:00:00 AM EST tablet extended release 24hr 30 TAKE ONE TABLET BY MOUTH EVERY DAY TAKE ONE TABLET BY MOUTH EVERY DAY SOLD: 05/20/2020 [facility] 300 mg 12/04/2019 12:00:00 AM EST tablet 30 TAKE ONE TABLET BY MOUTH EVERY DAY TAKE ONE TABLET BY MOUTH EVERY DAY SOLD: 03/19/2020 [facility] 5 mg 12/04/2019 12:00:00 AM EST tablet extended release 24hr 30 TAKE ONE TABLET BY MOUTH EVERY DAY TAKE ONE TABLET BY MOUTH EVERY DAY SOLD: 02/18/2020 [facility] 40 mg 12/04/2019 12:00:00 AM EST capsule 30 TAKE ONE CAPSULE BY MOUTH EVERY DAY TAKE ONE CAPSULE BY MOUTH EVERY DAY SOLD: 05/20/2020 [facility] 100 mg 12/04/2019 12:00:00 AM EST capsule 30 TAKE ONE CAPSULE BY MOUTH EVERY DAY TAKE ONE CAPSULE BY MOUTH EVERY DAY SOLD: 05/20/2020 [facility] 5 mg 12/04/2019 12:00:00 AM EST tablet extended release 24hr 30 TAKE ONE TABLET BY MOUTH EVERY DAY TAKE ONE TABLET BY MOUTH EVERY DAY SOLD: 01/15/2020 [facility] 300 mg 12/04/2019 12:00:00 AM EST tablet 30 TAKE ONE TABLET BY MOUTH EVERY DAY TAKE ONE TABLET BY MOUTH EVERY DAY SOLD: 12/09/2019 [facility] 300 mg 12/04/2019 12:00:00 AM EST tablet 30 TAKE ONE TABLET BY MOUTH EVERY DAY TAKE ONE TABLET BY MOUTH EVERY DAY SOLD: 01/15/2020 [facility] 100 mg 12/04/2019 12:00:00 AM EST capsule 30 TAKE ONE CAPSULE BY MOUTH EVERY DAY TAKE ONE CAPSULE BY MOUTH EVERY DAY SOLD: 03/19/2020 [facility] 40 mg 12/04/2019 12:00:00 AM EST tablet 30 TAKE ONE TABLET BY MOUTH EVERY DAY TAKE ONE TABLET BY MOUTH EVERY DAY SOLD: 12/09/2019 [facility] 300 mg 12/04/2019 12:00:00 AM EST tablet 30 TAKE ONE TABLET BY MOUTH EVERY DAY TAKE ONE TABLET BY MOUTH EVERY DAY SOLD: 04/17/2020 [facility] 100 mg 12/04/2019 12:00:00 AM EST capsule 30 TAKE ONE CAPSULE BY MOUTH EVERY DAY TAKE ONE CAPSULE BY MOUTH EVERY DAY SOLD: 12/09/2019 [facility] 300 mg 12/04/2019 12:00:00 AM EST tablet 30 TAKE ONE TABLET BY MOUTH EVERY DAY TAKE ONE TABLET BY MOUTH EVERY DAY SOLD: 02/18/2020 [facility] 40 mg 12/04/2019 12:00:00 AM EST capsule 30 TAKE ONE CAPSULE BY MOUTH EVERY DAY TAKE ONE CAPSULE BY MOUTH EVERY DAY SOLD: 01/15/2020 [facility] 100 mg 12/04/2019 12:00:00 AM EST capsule 30 TAKE ONE CAPSULE BY MOUTH EVERY DAY TAKE ONE CAPSULE BY MOUTH EVERY DAY SOLD: 04/17/2020 [facility] 40 mg 12/04/2019 12:00:00 AM EST capsule 30 TAKE ONE CAPSULE BY MOUTH EVERY DAY TAKE ONE CAPSULE BY MOUTH EVERY DAY SOLD: 04/17/2020 [facility] 40 mg 12/04/2019 12:00:00 AM EST capsule 30 TAKE ONE CAPSULE BY MOUTH EVERY DAY TAKE ONE CAPSULE BY MOUTH EVERY DAY SOLD: 02/18/2020 [facility] 5 mg 12/04/2019 12:00:00 AM EST tablet extended release 24hr 30 TAKE ONE TABLET BY MOUTH EVERY DAY TAKE ONE TABLET BY MOUTH EVERY DAY SOLD: 12/09/2019 [facility] 40 mg 12/04/2019 12:00:00 AM EST capsule 30 TAKE ONE CAPSULE BY MOUTH EVERY DAY TAKE ONE CAPSULE BY MOUTH EVERY DAY SOLD: 03/19/2020 [facility] 100 mg 12/04/2019 12:00:00 AM EST capsule 30 TAKE ONE CAPSULE BY MOUTH EVERY DAY TAKE ONE CAPSULE BY MOUTH EVERY DAY SOLD: 01/15/2020 [facility] 100 mg 12/04/2019 12:00:00 AM EST capsule 30 TAKE ONE CAPSULE BY MOUTH EVERY DAY TAKE ONE CAPSULE BY MOUTH EVERY DAY SOLD: 02/18/2020 [facility] NITROFURANTOIN, MACROCRYSTALS 25 MG / Ni trofurantoin, Monohydrate 75 MG Oral Capsule Nitrofurantoin Monohydrate/Macrocrystals 12/03/2019 12:00:00 AM EST completed [facility] ([facility]) doxycycline hyclate 100 MG Oral Tablet Doxycycline Hyclate 1 12/13/2018 12:00:00 AM EST ORAL completed [facility] ([facility]) 150 mg 10/09/2019 12:00:00 AM EST tablet sustained-releas e 12 hr 60 TAKE ONE TABLET BY MOUTH TWICE A DAY TAKE ONE TABLET BY MOUTH TWICE A DAY SOLD: 01/15/2020 [facility] 150 mg 10/09/2019 12:00:00 AM EST tablet sustained-releas e 12 hr 60 TAKE ONE TABLET BY MOUTH TWICE A DAY TAKE ONE TABLET BY MOUTH TWICE A DAY SOLD: 12/09/2019 [facility] 1,000 mg 07/10/2019 12:00:00 AM EDT tablet extended release 24 hr 30 TAKE ONE TABLET BY MOUTH AT BEDTIME TAKE ONE TABLET BY MOUTH AT BEDTIME SOLD: 12/09/2019 [facility] 100 mg 03/02/2019 12:00:00 AM EDT tablet 60 TAKE ONE TABLET BY MOUTH EVERY DAY TAKE ONE TABLET BY MOUTH EVERY DAY SOLD: 11/26/2019 [facility] Insurance Providers Payer name Policy type / Coverage type Policy ID Covered alliance party ID Covered alliance party's relationship to [place] Policy [place] Plan Information MEDICARE COMPLETE [id number] SP [id number] SORAYA [id number] SP [id number] [facility] [id number] SP [id number] MEDICARE [id number] SP [id number] MEDICARE COMPLETE-[facility] O [id number] S [id number] MEDICARE COMPLETE [id number] SP [id number] MEDICARE COMPLETE [id number] SP [id number] MEDICARE C [id number] S [id number] MEDICAID M [id number] S [id number] [id number] SP [id number] MEDICARE [id number] SP [id number] P37 MEDICAID [id number] SP [id number] [place] [id number] Self [id number] [place] [id number] Self [id number] [place] [id number] Self [id number] MEDICAID [id number] S [id number] [facility] MEDICARE DIVISION [id number] S [id number] [place] [id number] S [id number] [place] Part B [id number] Self [id number] Medicare [facility] Medicare Primary [id number] Self [id number] [place] [id number] S [id number] MEDICAID [id number] S [id number] [facility] MEDICARE DIVISION [id number] S [id number] [place]ICARE [place] [id number] S [id number] [facility] MEDICARE DIVISION [id number] S [id number] MEDICARE [place] [id number] S [id number] SELF PAY UNAVAILABLE [place] BLE [place] [id number] Self [id number] [place] [id number] Self [id number] Medicare [facility] Medicare Primary [id number] Self [id number] MEDICAID [id number] S [id number] [facility] MEDICARE DIVISION [id number] S [id number] [place] [id number] Self [id number] [place] [id number] Self [id number] [place] [id number] Self [id number] [place] [id number] Self [id number] [place] [id number] Self [id number] MEDICARE [id number] SP [id number] A MEDICAID [id number] SP [id number] MEDICARE [id number] SP [id number] [place] [id number] Self [id number] [place] [id number] Self [id number] [place] [id number] Self [id number] [place] Primary [id number] Self [id number] [place] [id number] S [id number] [place] [id number] Self [id number] [place] [id number] Self [id number] [place] [id number] Self [id number] [place] [id number] Self [id number] [place] [id number] Self [id number] [place] [id number] Self [id number] MEDICARE C [id number] S [id number] [id number] Self [id number] [place] Primary [id number] Self [id number] MEDICAID M [id number] Self [id number] MEDICARE A [id number] Self [id number] [id number] Self [id number] [place] [id number] Self [id number] S [facility] C [id number] S [id number] [place] [id number] Self [id number] [place] Primary [id number] Self [id number] Medicare Medicare Primary [id number] Self [id number] Medicare Medicare Primary [id number] Self [id number] [place] [id number] Self [id number] [place] [id number] Self [id number] [place] [id number] Self [id number] [place] [id number] Self [id number] [place] Primary Self UHC [place] MEDICARE COMPLETE G [id number] Self [id number] [place] Medig[place] Part B Self Medicare [facility] Medicare Primary Self SELF PAY UNAVAILABLE SP UNAVAILA BLE MEDICAID-O/P [id number] MEDICARE -O/P [id number] 18 [id number] Surgeries/Procedures Procedure Description Date Indications Data Source(s) Therapeutic, Prophylactic Or Diagnostic Injection Subq/Im 09/06/2020 12:00:00 AM EDT [facility] ([facility]) Therapeutic, Prophylactic Or Diagnostic Injection Subq/Im 09/05/2020 12:00:00 AM EDT [facility] ([facility]) Therapeutic, Prophylactic Or Diagnostic Injection Subq/Im 09/04/2020 12:00:00 AM EDT [facility] ([facility]) Results ID Date Data Source [id number] 11/15/2020 09:55:00 AM EST [facility] Name Value Range Interpretation Code Description Data Guillermina rce(s) Supporting Document(s) SARS-CoV-2 (COVID 19) [facility] This lab was ordered by [facility] a nd reported by [facility]. ID Date Data Source [id number] 11/14/2020 09:00:00 AM EST [facility] Name Value Range Interpretation Code Description Data Guillermina rce(s) Supporting Document(s) SARS coronavirus 2 RNA [facility] This lab was ordered by [facility] and reported by [facility]. ID Date Data Source [id number] 11/13/2020 12:00:00 AM EST [facility] Name Value Range Interpretation Code Description Data Guillermina rce(s) Supporting Document(s) SARS-CoV2 Rapid Antigen [facility] This lab was ordered by [facility] and reported by [facility]. ID Date Data Source [id number] 11/10/2020 02:04:00 PM EST [facility] Name Value Range Interpretation Code Description Data Guillermina rce(s) Supporting Document(s) SARS coronavirus 2 RNA [facility] This lab was ordered by [facility] and reported by [facility]. ID Date Data Source [id number] 10/31/2020 01:38:00 PM EST [facility] ([facility]) Name Value Range Interpretation Code Description Data Guillermina rce(s) Supporting Document(s) C reactive protein [Mass/volume] in Serum or Plasma by High sensitivity method 28.40 mg/dL 0.00-0.30 Above high normal [facility] ([facility]) Lactate [Mass/volume] in Serum or Plasma 4.4 mmol/L 0.4-2.0 Above upper panic limits [facility] ([facility]) Y/N query for Sepsis Lactate Rule: Y ID Date Data Source [id number] 10/31/2020 01:38:00 PM EST [facility] ([facility]) Name Value Range Interpretation Code Description Data Guillermina rce(s) Supporting Document(s) Blood Urea Nitrogen 40 mg/dL 7-18 Above high normal [facility] ([facility]) Glucose, Fasting 83 mg/dL 70-100 Normal (applies to non-numeric results) [facility] ([facility]) Creatinine For GFR 1.77 mg/dL 0.55-1.30 Above high normal [facility] ([facility]) Sodium Level 146 meq/L 136-145 Above high normal [facility] ([facility]) Glomerular Filtration Rate 30.4 Below low normal [facility] ([facility]) <content>Units are mL/min/1.73 m2</content>
<content></content>
<content>Chronic Kidney Disease Staging per NKF:</content>
<content></content>
<content>Stage I & II GFR >=60 Normal to Mildly Decreased</content>
<content>Stage III GFR 30- 59 Moderately Decreased</content>
<content>Stage IV GFR 15-29 Severely Decreased</content>
<content>Stage V GFR <15 Very Little GFR Left</content>
<content>ESRD GFR <15 on [employer]</content>
<content></content> Potassium Serum 4.1 meq/L 3.5-5.1 Normal (applies to non-numeric results) [facility] ([facility]) Chloride Level 110 meq/L 98-107 Above high normal [facility] ([facility]) Carbon Dioxide Level 27 meq/L 21-32 Normal (applies to non-num ruby results) [facility] ([facility]) Calcium Level 9.3 mg/dL 8.8-10.2 Normal (applies to non-numeric re sults) [facility] ([facility]) Anion Gap 9 meq/L 8-16 Normal (applies to non-numeric resul ts) [facility] ([facility]) ID Date Data Source [id number] 10/31/2020 01:38:00 PM EST [facility] ([facility]) Name Value Range Interpretation Code Description Data Guillermina rce(s) Supporting Document(s) Ast/Sgot 54 U/L 7-37 Above high normal [facility] ([facility]) Bilirubin,Total 1.1 mg/dL 0.2-1.0 Above high normal [facility] ([facility]) Alt/SGPT 34 U/L 12-78 Normal (applies to non-numeric resul ts) [facility] ([facility]) Alkaline Phosphatase 100 U/L 45-117 Normal (applies to non-num ruby results) [facility] ([facility]) Total Protein 6.0 GM/DL 6.4-8.2 Below low normal [facility] ([facility]) Albumin 2.4 GM/DL 3.2-5.2 Below low normal [facility] Bilirubin,Direct 0.5 mg/dL 0.0-0.2 Above high normal [facility] ([facility]) Albumin/Globulin Ratio 0.7 1.2-2.2 Below low normal [facility] ([facility]) ID Date Data Source [id number] 10/31/2020 01:38:00 PM EST [facility] ([facility]) Name Value Range Interpretation Code Description Data Guillermina rce(s) Supporting Document(s) CK-MB Value Mass 2.6 ng/mL Normal (applies to non-numeric results) [facility] ([facility]) MB/CK Relative Index 0.82 Normal (applies to non-num ruby results) [facility] ([facility]) <content>DIAGNOSIS CRITERIA</content>
<content>MMB ng/ml Relative Index (RI)</content>
<content>NON-AMI < or = 5 N/A</content>
<content>ORTIZ ZONE > 5 < or = 4</content>
<content>AMI > 5 > 4</content>
<content></content> CPK Creatine Phosphokinase 316 U/L 26-192 Above high normal [facility] ([facility]) Troponin I Laboratory test result Normal (applies to non-n umeric results) [facility] ([facility]) <content>Troponin I Reference Interval f or Siemens [place] LOCI:</content>
<content></content>
<content>99th Percentile= 0.00-0.045 ng/ml</content>
<content></content>
<content>Risk Stratification:</content>
<content><= 0.10 ng/ml Decreased Risk for Adverse Clinical</content>
<content>Events.</content>
<content>0.10-1.50 ng/ml Increased Risk for Adverse Clinical</content>
<content>Events. Evaluation of additional</content>
<content>criterion and/or repeat testing in 2-6</content>
<content>hours is suggested to rule out myocardial</content>
<content>damage.</content>
<content>>= 1.50 ng/ml Indicative of Myocardial Injury.</content>
<content></content> ID Date Data Source [id number] 10/31/2020 01:38:00 PM EST [facility] ([facility]) Name Value Range Interpretation Code Description Data Guillermina rce(s) Supporting Document(s) aPTT in Platelet poor plasma by Coagulation assay 25.2 s 24.2-38.5 Normal (applies to non-numeric results) [facility] ([facility]) ID Date Data Source [id number] 10/31/2020 01:38:00 PM EST [facility] ([facility]) Name Value Range Interpretation Code Description Data Guillermina rce(s) Supporting Document(s) Inr 1.58 Normal (applies to non-numeric resul ts) [facility] ([facility]) THERAPUTIC HUMAN INR VALUES INDICATIONS NORMAL RANGES PROPHYLAXIS/TREATMENT OF: VENOUS THROMBOSIS 2.0-3.0 PULMONARY EMBOLISM 2.0-3.0 PREVENTION OF SYSTEMIC EMBOLISM FROM: TISSUE HEART VALVES 2.0-3.0 ACUTE MYOCARDIAL INFARCTION 2.0-3.0 VALVULAR HEART DISEASE 2.0-3.0 ATRIAL FIBRILLATION 2.0-3.0 MECHANICAL VALVES(HIGH RISK) 2.5-3.5 RECURRENT MYOCARDIAL INFARCTION 2.5-3.5 Prothrombin Time 19.2 s 12.5-14.3 Above high normal [facility] ([facility]) ID Date Data Source [id number] 10/31/2020 01:38:00 PM EST [facility] ([facility]) Name Value Range Interpretation Code Description Data Guillermina rce(s) Supporting Document(s) Venous PH 7.338 units 7.330-7.430 Normal (applies to non-numeric res ults) [facility] ([facility]) Venous Total Co2 29.6 meq/L 24.0-28.0 Above high normal [facility] ([facility]) Venous Partial Pressure Co2 53.2 mmHg 38.0-50.0 Above high normal [facility] ([facility]) Venous Partial Pressure O2 79.7 mmHg 30.0-50.0 Above high normal [facility] Venous Hco3 27.9 meq/L 23.0-27.0 Above high normal [facility] ([facility]) Venous Standard Hco3 25.5 meq/L Normal (applies to non-num ruby results) [facility] ([facility]) Venous Base Excess 1.2 Normal (applies to non-numer ic results) [facility] ([facility]) Venous O2 Saturation 95.2 % 60.0-80.0 Above high normal [facility] ID Date Data Source [id number] 10/31/2020 01:38:00 PM EST [facility] ([facility]) Name Value Range Interpretation Code Description Data Guillermina rce(s) Supporting Document(s) Platelets [#/volume] in Blood by Estimate Laboratory test result Normal (applies to non-numeric results) [facility] ([facility]) ID Date Data Source [id number] 10/31/2020 01:38:00 PM EST [facility] ([facility]) Name Value Range Interpretation Code Description Data Guillermina rce(s) Supporting Document(s) Bands 37 % Above high normal [facility] ([facility] Neutrophils 44 % 28-66 Normal (applies to non-numeric resu lts) [facility] ([facility]) Monocytes 1 % 0-5 Normal (applies to non-numeric resul ts) [facility] ([facility]) Metamyelocytes 8 % 0-0 Above high normal [facility] ([facility]) Lymphocytes 7 % 16-44 Below low normal [facility] ([facility]) Toxic Granulation Laboratory test result Normal (applies to non-numeric results) [facility] ([facility]) Myelocytes 3 % 0-0 Above high normal [facility] ([facility]) Macrocytosis Laboratory test result Normal (applies to non -numeric results) [facility] ([facility]) Laboratory test finding (navigational concept) Laboratory test r esult Normal (applies to non-numeric results) [facility] ([facility]) ID Date Data Source [id number] 10/31/2020 01:38:00 PM EST [facility] ([facility]) Name Value Range Interpretation Code Description Data Guillermina rce(s) Supporting Document(s) White Blood Count 6.5 10 4.0-10.0 Normal (applies to non-numeri c results) [facility] ([facility]) Hemoglobin 12.7 g/dL 12.0-15.5 Normal (applies to non-numeric resul ts) [facility] ([facility]) Red Blood Count 3.79 10 4.00-5.40 Below low normal [facility] ([facility]) Hematocrit 39.2 % 36.0-47.0 Normal (applies to non-numeric resul ts) [facility] ([facility]) Mean Corpuscular Hemoglobin 33.5 pg 27.0-33.0 Above high [facility] Mean Corpuscular HGB Conc 32.4 g/dL 32.0-36.5 Normal (applies to non-numeric results) [facility] ([facility]) Mean Corpuscular Volume 103.4 fl 80.0-96.0 Above high normal [facility] ([facility]) Nucleated Red Blood Cell % 0.0 % 0-0 Normal (applies to n on-numeric results) [facility] ([facility]) Red Cell Distribution Width 14.9 % 11.5-14.5 Above high normal [facility] Platelet Count, Automated 139 10 150-450 Below low normal [facility] ([facility]) ID Date Data Source [id number] 10/31/2020 12:40:00 PM EST [facility] Name Value Range Interpretation Code Description Data Guillermina rce(s) Supporting Document(s) SARS coronavirus 2 RNA [Presence] in Res piratory specimen by NENA with probe detection [facility] This lab was ordered by [facility] a nd reported by [facility]. ID Date Data Source [id number] 09/04/2020 07:51:00 PM EDT [facility] ([facility]) Name Value Range Interpretation Code Description Data Guillermina rce(s) Supporting Document(s) Bacteria identified in Urine by Culture Laboratory test result [facility] ([facility]) <content>FULL REPORT IN LAB NOTES ([facility] a nd [facility]).</content>
<content></content>
<content>ORGANISM 1: ENTEROBACTER CLOACAE COMPLEX</content>
<content></content>
<content>COLONY COUNT >100,000</content>
<content></content>
<content></content>
<content> ORGANISM 1: ENTEROBACTER CLOACAE COMPLEX</content>
<content></content>
<content>ENTEROBACTER CLOACAE COMPLEX: REACTION</content>
<content>TRIMETHOPRIM/SULFAMETHOXAZOLE IV 160mg TMP & 800mg SMXq6h <=20 S</content>
<content> TRIMETHOPRIM/SULFAMETHOXAZOLE PO Bactrim DS Bid <=20 S</content>
<content>GENTAMICIN IV 80mg q8h <=1 S</content>
<content>NITROFURANTOIN PO 100mg BID <=16 S</content>
<content>CEFAZOLIN IV 1gm q8h >=64 R</content>
<content>LEVOFLOXACIN IV 500mg qd <=0.12 S</content>
<content>LEVOFLOXACIN PO 250mg qd <=0.12 S</content>
<content> LEVOFLOXACIN PO 500mg qd <=0.12 S</content>
<content>TOBRAMYCIN IV 80mg q8h <=1 S</content>
<content>CEFTRIAXONE IV 1gm q24h <=1 S</content>
<content>CEFTAZIDIME IV 1gm q8h <=1 S</content>
<content>PIPERACILLIN/TAZOBACTAM IV 2.25 gm q6h <=4 S</content>
<content>AZTREONAM IV 1gm q8h <=1 S</content>
<content> ERTAPENEM IV 1gm qd <=0.5 S</content>
<content>MEROPENEM IV 1 gm q8h <=0.25 S</content>
<content>MEROPENEM IV 500 mg q8h <=0.25 S</content>
<content>TIGECYCLINE IV 50mg q12h 1 S</content>
<content>CEFEPIME IV 1 gm q12h <=1 S</content>
<content>CEFEPIME IV 2 gm q12h <=1 S</content>
<content></content> ID Date Data Source [id number] 08/23/2020 12:45:00 PM EDT [facility] ([facility]) Name Value Range Interpretation Code Description Data Guillermina rce(s) Supporting Document(s) Bacteria identified in Urine by Culture Laboratory test result [facility] ([facility]) <content>FULL REPORT IN LAB NOTES ([facility] a nd [facility]).</content>
<content></content>
<content>ORGANISM 1: ESCHERICHIA COLI</content>
<content></content>
<content>COLONY COUNT > 100,000</content>
<content></content>
<content></content>
<content>O RGANISM 1: ESCHERICHIA COLI</content>
<content></content>
<content> ESCHERICHIA COLI: REACTION</content>
<content>TRIMETHOPRIM/SULFAMETHOXAZOLE IV 160mg TMP & 800mg SMXq6h >=320 R</content>
<content> TRIMETHOPRIM/SULFAMETHOXAZOLE PO Bactrim DS Bid >=320 R</content>
<content>AMPICILLIN IV 500mg q6h >=32 R</content>
<content>AMPICILLIN PO 500mg q6h fasting >=32 R</content>
<content>GENTAMICIN IV 80mg q8h <=1 S</content>
<content>NITROFURANTOIN PO 100mg BID 128 R</content>
<content>CEFAZOLIN IV 1gm q8h <=4 S</content>
<content>LEVOFLOXACIN IV 500mg qd >=8 R</content>
<content>LEVOFLOXACIN PO 250mg qd >=8 R</content>
<content>LEVOFLOXACIN PO 500mg qd >=8 R</content>
<content>TOBRAMYCIN IV 80mg q8h <=1 S</content>
<content> CEFTRIAXONE IV 1gm q24h <=1 S</content>
<content>CEFTAZIDIME IV 1gm q8h <=1 S</content>
<content>AMPICILLIN/SULBACTAM IV 1.5g q6h >=32 R</content>
<content>PIPERACILLIN/TAZOBACTAM IV 2.25 gm q6h <=4 S</content>
<content>AZTREONAM IV 1gm q8h <=1 S</content>
<content>ERTAPENEM IV 1gm qd <=0.5 S</content>
<content> MEROPENEM IV 1 gm q8h <=0.25 S</content>
<content>MEROPENEM IV 500 mg q8h <=0.25 S</content>
<content>TIGECYCLINE IV 50mg q12h <=0.5 S</content>
<content>CEFEPIME IV 1 gm q12h <=1 S</content>
<content>CEFEPIME IV 2 gm q12h <=1 S</content>
<content>EXTD BRD SPCTRM BETA LACTAMASE IV NEGATIVE FOR ESBL</content>
<content></content> ID Date Data Source [id number] 08/10/2020 01:19:00 PM EDT [facility] ([facility]) Name Value Range Interpretation Code Description Data Guillermina rce(s) Supporting Document(s) Bacteria identified in Urine by Culture Laboratory test result [facility] ([facility]) <content>FULL REPORT IN LAB NOTES ([facility] a nd [facility]).</content>
<content></content>
<content>ORGANISM 1: ESCHERICHIA COLI</content>
<content></content>
<content>COLONY COUNT > 100,000</content>
<content></content>
<content></content>
<content>O RGANISM 1: ESCHERICHIA COLI</content>
<content></content>
<content> ESCHERICHIA COLI: REACTION</content>
<content>TRIMETHOPRIM/SULFAMETHOXAZOLE IV 160mg TMP & 800mg SMXq6h >=320 R</content>
<content> TRIMETHOPRIM/SULFAMETHOXAZOLE PO Bactrim DS Bid >=320 R</content>
<content>AMPICILLIN IV 500mg q6h >=32 R</content>
<content>AMPICILLIN PO 500mg q6h fasting >=32 R</content>
<content>GENTAMICIN IV 80mg q8h <=1 S</content>
<content>NITROFURANTOIN PO 100mg BID 256 R</content>
<content>CEFAZOLIN IV 1gm q8h <=4 S</content>
<content>LEVOFLOXACIN IV 500mg qd >=8 R</content>
<content>LEVOFLOXACIN PO 250mg qd >=8 R</content>
<content>LEVOFLOXACIN PO 500mg qd >=8 R</content>
<content>TOBRAMYCIN IV 80mg q8h <=1 S</content>
<content> CEFTRIAXONE IV 1gm q24h <=1 S</content>
<content>CEFTAZIDIME IV 1gm q8h <=1 S</content>
<content>AMPICILLIN/SULBACTAM IV 1.5g q6h >=32 R</content>
<content>PIPERACILLIN/TAZOBACTAM IV 2.25 gm q6h <=4 S</content>
<content>AZTREONAM IV 1gm q8h <=1 S</content>
<content>ERTAPENEM IV 1gm qd <=0.5 S</content>
<content> MEROPENEM IV 1 gm q8h <=0.25 S</content>
<content>MEROPENEM IV 500 mg q8h <=0.25 S</content>
<content>TIGECYCLINE IV 50mg q12h <=0.5 S</content>
<content>CEFEPIME IV 1 gm q12h <=1 S</content>
<content>CEFEPIME IV 2 gm q12h <=1 S</content>
<content>EXTD BRD SPCTRM BETA LACTAMASE IV NEGATIVE FOR ESBL</content>
<content></content> ID Date Data Source [id number] 06/20/2020 04:14:00 PM EDT [facility] ([facility]) Name Value Range Interpretation Code Description Data Guillermina rce(s) Supporting Document(s) Inhouse Nitrite Laboratory test result [facility] ([facility]) Inhouse Leukocytes Laboratory test result [facility] ([facility]) Inhouse Protein Laboratory test result [facility] ([facility]) Inhouse PH 5.0 [facility] ([facility]) Inhouse Urobilinogen 0.2 [facility] ([facility]) Inhouse Ketones Laboratory test result [facility] ([facility]) Inhouse Specific [place] 1.010 [facility] ([facility]) Inhouse Hemoglobin Laboratory test result [facility] ([facility]) Inhouse Bilirubin Laboratory test result [facility] ([facility]) Inhouse Glucose Laboratory test result [facility] ([facility]) ID Date Data Source [id number] 03/06/2020 04:00:00 PM EDT [facility] Name Value Range Interpretation Code Description Data Guillermina rce(s) Supporting Document(s) SARS CORONAVIRUS 2 RNA [facility] This lab was ordered by [facility] and reported by [facility]. ID Date Data Source [id number] 03/06/2020 04:00:00 PM EDT [facility] ([facility]) Name Value Range Interpretation Code Description Data Guillermina rce(s) Supporting Document(s) Coronavirus 2019 Nasopharygeal Laboratory test result [facility] ([facility]) Testing was performed using the shannon(R) SARS-CoV-2 test. This test was developed and its performance characteristics determined by [employer]. This test has not been FDA cleared or approved. This test has been authorized by FDA under an Emergency Use Authorization (EUA). This test is only authorized for the duration of time the declaration that circumstances exist justifying the authorization of the emergency use of in vitro diagnostic tests for detection of SARS-CoV-2 virus and/or diagnosis of COVID-19 infection under section 564(b)(1) of the Act, 21 U.S.C. 360bbb-3(b)(1), unless the authorization is terminated or revoked sooner. Performed at: [facility] [id number] Spr[employer] Unit Feeder: Shobha Green MD, Phone: [phone] Not Detected ID Date Data Source [id number] 03/01/2020 10:36:00 AM EDT [facility] ([facility]) Name Value Range Interpretation Code Description Data Guillermina rce(s) Supporting Document(s) Inhouse Leukocytes Laboratory test result [facility] ([facility]) Inhouse Nitrite Laboratory test result [facility] ([facility]) Inhouse Hemoglobin Laboratory test result [facility] ([facility]) Inhouse Protein Laboratory test result [facility] ([facility]) Inhouse PH 6.0 [facility] ([facility]) Inhouse Urobilinogen 0.2 [facility] ([facility]) Inhouse Bilirubin Laboratory test result [facility] ([facility]) Inhouse Ketones Laboratory test result [facility] ([facility]) Inhouse Specific [place] 1.010 [facility] ([facility]) Inhouse Glucose Laboratory test result [facility] ([facility]) ID Date Data Source [id number] 03/01/2020 10:30:00 AM EDT [facility] ([facility]) Name Value Range Interpretation Code Description Data Guillermina rce(s) Supporting Document(s) Bacteria identified in Urine by Culture Laboratory test result Normal (applies to non-numeric results) [facility] ([facility]) <content>FULL REPORT IN LAB NOTES ([facility] a nd [facility]).</content>
<content></content>
<content>ORGANISM 1: KLEBSIELLA PNEUMONIAE</content>
<content></content>
<content>COLONY COUNT >100,000</content>
<content></content>
<content></content>
<content> ORGANISM 1: KLEBSIELLA PNEUMONIAE</content>
<content></content>
<content>KLEBSIELLA PNEUMONIAE: REACTION</content>
<content>TRIMETHOPRIM/SULFAMETHOXAZOLE IV 160mg TMP & 800mg SMXq6h <=20 S</content>
<content> TRIMETHOPRIM/SULFAMETHOXAZOLE PO Bactrim DS Bid <=20 S</content>
<content>AMPICILLIN IV 500mg q6h >=32 R</content>
<content>AMPICILLIN PO 500mg q6h fasting >=32 R</content>
<content>GENTAMICIN IV 80mg q8h <=1 S</content>
<content>NITROFURANTOIN PO 100mg BID 64 I</content>
<content>CEFAZOLIN IV 1gm q8h <=4 S</content>
<content>LEVOFLOXACIN IV 500mg qd <=0.12 S</content>
<content>LEVOFLOXACIN PO 250mg qd <=0.12 S</content>
<content>LEVOFLOXACIN PO 500mg qd <=0.12 S</content>
<content>TOBRAMYCIN IV 80mg q8h <=1 S</content>
<content> CEFTRIAXONE IV 1gm q24h <=1 S</content>
<content>CEFTAZIDIME IV 1gm q8h <=1 S</content>
<content>AMPICILLIN/SULBACTAM IV 1.5g q6h 8 S</content>
<content>PIPERACILLIN/TAZOBACTAM IV 2.25 gm q6h <=4 S</content>
<content>AZTREONAM IV 1gm q8h <=1 S</content>
<content>ERTAPENEM IV 1gm qd <=0.5 S</content>
<content>MEROPENEM IV 1 gm q8h <=0.25 S</content>
<content>MEROPENEM IV 500 mg q8h <=0.25 S</content>
<content>TIGECYCLINE IV 50mg q12h 2 S</content>
<content>CEFEPIME IV 1 gm q12h <=1 S</content>
<content>CEFEPIME IV 2 gm q12h <=1 S</content>
<content>EXTD BRD SPCTRM BETA LACTAMASE IV NEGATIVE FOR ESBL</content>
<content></content> ID Date Data Source [id number] 02/09/2020 12:18:00 PM EDT [facility] ([facility]) Name Value Range Interpretation Code Description Data Guillermina rce(s) Supporting Document(s) Bacteria identified in Urine by Culture Laboratory test result Normal (applies to non-numeric results) [facility] FULL REPORT IN LAB NOTES ([facility] and [facility] ). SPECIMEN APPEARS CONTAMINATED ID Date Data Source [id number] 01/11/2020 08:45:00 PM EST [facility] ([facility]) Name Value Range Interpretation Code Description Data Guillermina rce(s) Supporting Document(s) Thyrotropin [Units/volume] in Serum or Plasma 1.090 uIU/ML 0. 358-3.740 Normal (applies to non-numeric results) [facility]) Natriuretic peptide.B prohormone N-Terminal [Mass/volu me] in Serum or Plasma 1672 pg/mL Above high normal [facility] ID Date Data Source [id number] 01/11/2020 08:45:00 PM EST [facility] ([facility]) Name Value Range Interpretation Code Description Data Guillermina rce(s) Supporting Document(s) Blood Urea Nitrogen 27 mg/dL 7-18 Above high normal [facility] ([facility]) Creatinine For GFR 1.81 mg/dL 0.55-1.30 Above high normal [facility] Glucose, Fasting 111 mg/dL 70-100 Above high normal [facility] ([facility]) Potassium Serum 3.8 meq/L 3.5-5.1 Normal (applies to non-numeric results) [facility] ([facility]) Sodium Level 141 meq/L 136-145 Normal (applies to non-numeric res ults) [facility] ([facility]) Glomerular Filtration Rate 29.7 Below low normal [facility] ([facility]) <content>Units are mL/min/1.73 m2</content>
<content></content>
<content>Chronic Kidney Disease Staging per NKF:</content>
<content></content>
<content>Stage I & II GFR >=60 Normal to Mildly Decreased</content>
<content>Stage III GFR 30- 59 Moderately Decreased</content>
<content>Stage IV GFR 15-29 Severely Decreased</content>
<content>Stage V GFR <15 Very Little GFR Left</content>
<content>ESRD GFR <15 on CNC MAINTENANCE TECHNICIAN</content>
<content></content> Anion Gap 8 meq/L 8-16 Normal (applies to non-numeric resul ts) [facility] ([facility]) Carbon Dioxide Level 29 meq/L 21-32 Normal (applies to non-num ruby results) [facility] ([facility]) Chloride Level 104 meq/L 98-107 Normal (applies to non-numeric r esults) [facility] ([facility]) Calcium Level 8.4 mg/dL 8.8-10.2 Below low normal [facility] ([facility]) ID Date Data Source [id number] 01/11/2020 08:45:00 PM EST [facility] ([facility]) Name Value Range Interpretation Code Description Data Guillermina rce(s) Supporting Document(s) Ast/Sgot 32 U/L 7-37 Normal (applies to non-numeric resul ts) [facility] ([facility]) Alkaline Phosphatase 154 U/L 45-117 Above high normal [facility] Alt/SGPT 23 U/L 12-78 Normal (applies to non-numeric resul ts) [facility] ([facility]) Bilirubin,Total 1.9 mg/dL 0.2-1.0 Above high normal [facility] ([facility]) Total Protein 6.2 GM/DL 6.4-8.2 Below low normal [facility] ([facility]) Albumin 2.1 GM/DL 3.2-5.2 Below low normal [facility] ( [facility]) Bilirubin,Direct 0.7 mg/dL 0.0-0.2 Above high normal [facility] ([facility]) Albumin/Globulin Ratio 0.51 1.00-1.93 Below low normal [facility] ([facility]) ID Date Data Source [id number] 01/11/2020 08:45:00 PM EST [facility] ([facility]) Name Value Range Interpretation Code Description Data Guillermina rce(s) Supporting Document(s) Lactate [Mass/volume] in Serum or Plasma 1.8 mmol/L 0.4-2.0 Normal (applies to non-numeric results) [facility] ([facility]) Y/N query for Sepsis Lactate Rule: Y ID Date Data Source [id number] 01/11/2020 08:45:00 PM EST [facility] ([facility]) Name Value Range Interpretation Code Description Data Guillermina rce(s) Supporting Document(s) Red Blood Count 3.59 10 4.00-5.40 Below low normal [facility] ([facility]) White Blood Count 13.2 10 4.0-10.0 Above high normal [facility] ([facility]) Hemoglobin 11.6 g/dL 12.0-15.5 Below low normal [facility] ( [facility]) Mean Corpuscular Hemoglobin 32.3 pg 27.0-33.0 Norm al (applies to non-numeric results) [facility] ([facility]) Hematocrit 36.2 % 36.0-47.0 Normal (applies to non-numeric resul ts) [facility] ([facility]) Mean Corpuscular Volume 100.8 fl 80.0-96.0 Above high normal [facility] ([facility]) Mean Corpuscular HGB Conc 32.0 g/dL 32.0-36.5 Normal (applies to non-numeric results) [facility] Platelet Count, Automated 187 10 150-450 Normal (applies to non-numeric results) [facility] ([facility]) Red Cell Distribution Width 15.2 % 11.5-14.5 Above high normal [facility] ([facility]) [place] % 4.2 % 0.0-5.0 Normal (applies to non-numeric resul ts) [facility] ([facility]) Lymph % 13.2 % 24.0-44.0 Below low normal [facility] ( [facility]) Neutrophils % 80.4 % 36.0-66.0 Above high normal [facility] ([facility]) Eos % 0.3 % 0.0-3.0 Normal (applies to non-numeric resul ts) [facility] ([facility]) Immature Granulocyte % 1.7 % 0-3.0 Normal (applies to non-n umeric results) [facility] ([facility]) Baso % 0.2 % 0.0-1.0 Normal (applies to non-numeric resul ts) [facility] ([facility]) Nucleated Red Blood Cell % 0.0 % 0-0 Normal (applies to n on-numeric results) [facility] ([facility]) Lymph # 1.7 10 1.5-5.0 Normal (applies to non-numeric resul ts) [facility] ([facility]) [place] # 0.6 10 0.0-0.8 Normal (applies to non-numeric resul ts) [facility] ([facility]) Neutrophils # 10.6 10 1.5-8.5 Above high normal [facility] ([facility]) Baso # 0.0 10 0.0-0.2 Normal (applies to non-numeric resul ts) [facility] ([facility]) Eos # 0.0 10 0.0-0.5 Normal (applies to non-numeric resul ts) [facility] ([facility]) ID Date Data Source [id number] 12/30/2019 09:30:00 AM EST [facility] ([facility]) Name Value Range Interpretation Code Description Data Guillermina rce(s) Supporting Document(s) Red Blood Count 3.45 10 4.00-5.40 Below low normal [facility] ([facility]) White Blood Count 5.7 10 4.0-10.0 Normal (applies to non-numeri c results) [facility] ([facility]) Hemoglobin 11.1 g/dL 12.0-15.5 Below low normal [facility] ( [facility]) Mean Corpuscular Hemoglobin 32.2 pg 27.0-33.0 Norm al (applies to non-numeric results) [facility] ([facility]) Hematocrit 36.3 % 36.0-47.0 Normal (applies to non-numeric resul ts) [facility] ([facility]) Mean Corpuscular Volume 105.2 fl 80.0-96.0 Above high normal [facility] ([facility]) Red Cell Distribution Width 15.7 % 11.5-14.5 Above high normal [facility] ([facility]) Platelet Count, Automated 123 10 150-450 Below low normal [facility] ([facility]) Mean Corpuscular HGB Conc 30.6 g/dL 32.0-36.5 Below low normal [facility] ([facility]) Lymph % 34.0 % 24.0-44.0 Normal (applies to non-numeric resul ts) [facility] ([facility]) [place] % 6.9 % 0.0-5.0 Above high normal [facility] ([facility]) Neutrophils % 36.2 % 36.0-66.0 Normal (applies to non-numeric re sults) [facility] ([facility]) Immature Granulocyte % 0.2 % 0-3.0 Normal (applies to non-n umeric results) [facility] ([facility]) Baso % 0.5 % 0.0-1.0 Normal (applies to non-numeric resul ts) [facility] ([facility]) Eos % 22.2 % 0.0-3.0 Above high normal [facility] ([facility]) Scan Verified machine results Lymph # 1.9 10 1.5-5.0 Normal (applies to non-numeric resul ts) [facility] ([facility]) Nucleated Red Blood Cell % 0.0 % 0-0 Normal (applies to n on-numeric results) [facility] ([facility]) Neutrophils # 2.1 10 1.5-8.5 Normal (applies to non-numeric re sults) [facility] ([facility]) [place] # 0.4 10 0.0-0.8 Normal (applies to non-numeric resul ts) [facility] ([facility]) Eos # 1.3 10 0.0-0.5 Above high normal [facility] ([facility]) Baso # 0.0 10 0.0-0.2 Normal (applies to non-numeric resul ts) [facility] ([facility]) ID Date Data Source [id number] 12/30/2019 09:30:00 AM EST [facility] ([facility]) Name Value Range Interpretation Code Description Data Guillermina rce(s) Supporting Document(s) Thyroid Stimulating Hormone 5.130 uIU/ML 0.358-3.740 Above high pascual l [facility] ([facility]) Free T4 0.93 ng/dL 0.76-1.46 Normal (applies to non-numeric resul ts) [facility] ([facility]) ID Date Data Source [id number] 12/30/2019 09:30:00 AM EST [facility] ([facility]) Name Value Range Interpretation Code Description Data Guillermina rce(s) Supporting Document(s) Triglycerides Level 74 mg/dL Normal (applies to non-nume [place] results) [facility] ([facility]) HDL Cholesterol 41 mg/dL Normal (applies to non-numeric results) [facility] ([facility]) LDL Cholesterol 83 mg/dL Normal (applies to non-numeric results) [facility] ([facility]) Cholesterol Level 139 mg/dL Normal (applies to non-numeri c results) [facility] ([facility]) Non-HDL-C 98 mg/dL Normal (applies to non-numeric resul ts) [facility] Cholesterol Risk Ratio 3.390 Normal (applies to non-n umeric results) [facility] ID Date Data Source [id number] 12/30/2019 09:30:00 AM EST [facility] ([facility]) Name Value Range Interpretation Code Description Data Guillermina rce(s) Supporting Document(s) Hemoglobin A1c 6.5 % Normal (applies to non-numeric r esults) [facility] ([facility]) REFERENCE RANGES: 4.5-5.6% NORMAL 5.7-6.4% SUGGESTS IMPAIRED GLUCOSE META BOLISM >= 6.5% ABNORMAL Estimated Average Glucose 140 mg/dL 60-110 Above high normal [facility] ([facility]) ID Date Data Source [id number] 12/30/2019 09:30:00 AM EST [facility] ([facility]) Name Value Range Interpretation Code Description Data Guillermina rce(s) Supporting Document(s) Glucose, Fasting 241 mg/dL 70-100 Above high normal [facility] ([facility]) Blood Urea Nitrogen 29 mg/dL 7-18 Above high normal [facility] ([facility]) Creatinine For GFR 1.74 mg/dL 0.55-1.30 Above high normal [facility] ([facility]) Sodium Level 143 meq/L 136-145 Normal (applies to non-numeric res ults) [facility] ([facility]) Potassium Serum 4.2 meq/L 3.5-5.1 Normal (applies to non-numeric results) [facility] ([facility]) Glomerular Filtration Rate 31.1 Below low normal [facility] ([facility]) <content>Units are mL/min/1.73 m2</content>
<content></content>
<content>Chronic Kidney Disease Staging per NKF:</content>
<content></content>
<content>Stage I & II GFR >=60 Normal to Mildly Decreased</content>
<content>Stage III GFR 30- 59 Moderately Decreased</content>
<content>Stage IV GFR 15-29 Severely Decreased</content>
<content>Stage V GFR <15 Very Little GFR Left</content>
<content>ESRD GFR <15 on [employer]TE[employer] TECHNICIAN</content>
<content></content> Anion Gap 5 meq/L 8-16 Below low normal [facility] ( [facility]) Carbon Dioxide Level 31 meq/L 21-32 Normal (applies to non-num ruby results) [facility] ([facility]) Chloride Level 107 meq/L 98-107 Normal (applies to non-numeric r esults) [facility] Calcium Level 8.7 mg/dL 8.8-10.2 Below low normal [facility] ([facility]) Alkaline Phosphatase 104 U/L 45-117 Normal (applies to non-num ruby results) [facility] ([facility]) Ast/Sgot 22 U/L 7-37 Normal (applies to non-numeric resul ts) [facility] ([facility]) Alt/SGPT 14 U/L 12-78 Normal (applies to non-numeric resul ts) [facility] ([facility]) Albumin 2.5 GM/DL 3.2-5.2 Below low normal [facility] Total Protein 6.1 GM/DL 6.4-8.2 Below low normal [facility] ([facility]) Bilirubin,Total 0.5 mg/dL 0.2-1.0 Normal (applies to non-numeric results) [facility] ([facility]) Albumin/Globulin Ratio 0.69 1.00-1.93 Below low normal [facility] ([facility]) ID Date Data Source [id number] 11/29/2019 06:22:00 PM EST [facility] ([facility]) Name Value Range Interpretation Code Description Data Guillermina rce(s) Supporting Document(s) Laboratory test finding (navigational concept) 41.0 % 3 8.0-51.0 Normal (applies to non-numeric results) [facility] ([facility]) Laboratory test finding (navigational concept) 153 mg/dL 7 0-105 Above high normal [facility] ([facility]) Laboratory test finding (navigational concept) 4.8 mg/dL 4 .5-5.3 Normal (applies to non-numeric results) [facility] ([facility]) Laboratory test finding (navigational concept) 3.1 meq/L 3 .5-5.1 Below low normal [facility] ([facility]) Laboratory test finding (navigational concept) 151 meq/L 1 36-145 Above high normal [facility] ([facility]) Laboratory test finding (navigational concept) 28.0 MM/L 2 3.0-27.0 Above high normal [facility] ([facility]) Laboratory test finding (navigational concept) 26 mg/dL 8 -26 Normal (applies to non-numeric results) [facility] ([facility]) Laboratory test finding (navigational concept) 109 meq/L 9 8-109 Normal (applies to non-numeric results) [facility] ([facility]) Laboratory test finding (navigational concept) 1.5 mg/dL 0 .6-1.3 Above high normal [facility] ([facility]) ID Date Data Source [id number] 11/29/2019 06:21:00 PM EST [facility] ([facility]) Name Value Range Interpretation Code Description Data Guillermina rce(s) Supporting Document(s) Respiratory Panel Laboratory test result [facility] ([facility]) This respiratory PCR panel detects Influ dong A H1, H3 and 2009 H1 viruses, Influenza B virus, Resp iratory syncytial virus, Human metapneumovirus, Parainfluenza virus 1, 2, 3 and 4, Adenovirus, Rhinovirus/Enterovirus, Coronavirus HKU1, NL63, OC43 and 229E, Bordetella pertussis, Mycoplasma pneumoniae and Chlamydia pneumoniae. NEGATIVE by MULTIPLEXED NUCLEIC ACID PCR Procedure Social History Code Duration Value Status Description Data Source(s ) Smoking 09/26/2020 12:00:00 AM EDT Patient has never smoked co mpleted Patient has never smoked [facility] ([facility]) Smoking 09/04/2020 12:00:00 AM EDT Patient has never smoked co mpleted Patient has never smoked [facility] ([facility]) Vital Signs ID Date Data Source UNK Name Value Range Interpretation Code Description Data Source(s) [place] body weight 100 [lb_av] 100 [lb_av] [facility] Oxygen saturation in Arterial blood by Pulse oximetry 98 % 98 % [facility] ([facility]) Body temperature 98.8 [degF] 98.8 [degF] [facility] ([facility]) Respiratory rate 26 /min 26 /min [facility] ( [facility]) Heart rate 77 /min 77 /min [facility] ([facility]) Body mass index (BMI) [Ratio] 47.7 kg/m2 47.7 k g/m2 [facility] ([facility]) Body weight 240.00 [lb_av] 240.00 [lb_av] [facility] ([facility]) Body height 59.50 [in_i] 59.50 [in_i] [facility] ([facility]) 4'11.50" Diastolic blood pressure 86 mm[Hg] 86 mm[Hg] [facility] ([facility]) Systolic blood pressure 128 mm[Hg] 128 mm[Hg] [facility] Body mass index (BMI) [Ratio] 47.8 kg/m2 47.8 k g/m2 [facility] Body height 60 [in_i] 60 [in_i] [facility]) 5'0" Body weight 245.00 [lb_av] 245.00 [lb_av] [facility] ([facility], [facility]) Body temperature 98.0 [degF] 98.0 [degF] [facility], [facility]) Oxygen saturation in Arterial blood by Pulse oximetry 98 % 98 % [facility] ([facility], [facility]) Respiratory rate 14 /min 14 /min [facility] ( [facility], [facility]) Heart rate 66 /min 66 /min [facility], [facility]) Diastolic blood pressure 73 mm[Hg] 73 mm[Hg] [facility], [facility]) Systolic blood pressure 118 mm[Hg] 118 mm[Hg] M [facility] ([facility], [facility]) Body mass index (BMI) [Ratio] 47.8 kg/m2 47.8 k g/m2 [facility] ([facility], [facility]) Body height 60 [in_i] 60 [in_i] [facility] ([facility], [facility]) 5'0" Body weight 245.00 [lb_av] 245.00 [lb_av] [facility] ([facility], [facility]) Body temperature 98.1 [degF] 98.1 [degF] [facility] ([facility], [facility]) Oxygen saturation in Arterial blood by Pulse oximetry 97 % 97 % [facility] ([facility], [facility]) Respiratory rate 12 /min 12 /min [facility] ( [facility], [facility]) Heart rate 65 /min 65 /min [facility] ([facility], [facility]) Diastolic blood pressure 74 mm[Hg] 74 mm[Hg] [facility] ([facility], [facility]) Systolic blood pressure 113 mm[Hg] 113 mm[Hg] [facility]) Body mass index (BMI) [Ratio] 47.8 kg/m2 47.8 k g/m2 [facility] ([facility], [facility]) Body height 60 [in_i] 60 [in_i] [facility]) 5'0" Body weight 245.00 [lb_av] 245.00 [lb_av] [facility] ([facility], [facility]) Body temperature 97.8 [degF] 97.8 [degF] [facility] ([facility], [facility]) Oxygen saturation in Arterial blood by Pulse oximetry 95 % 95 % [facility] ([facility], [facility]) Respiratory rate 16 /min 16 /min [facility] ( [facility], [facility]) Heart rate 88 /min 88 /min [facility] ([facility], [facility]) Diastolic blood pressure 67 mm[Hg] 67 mm[Hg] [facility] ([facility], [facility]) Systolic blood pressure 143 mm[Hg] 143 mm[Hg] [facility]) Body mass index (BMI) [Ratio] 48.8 kg/m2 48.8 k g/m2 [facility] ([facility], [facility]) Body height 60 [in_i] 60 [in_i] [facility] ([facility], [facility]) 5'0" Body weight 250.00 [lb_av] 250.00 [lb_av] [facility] ([facility], [facility]) Body temperature 98.2 [degF] 98.2 [degF] [facility] ([facility], [facility]) Oxygen saturation in Arterial blood by Pulse oximetry 98 % 98 % [facility] ([facility], [facility]) Respiratory rate 68 /min 68 /min [facility] ( [facility], [facility]) Heart rate 65 /min 65 /min [facility] ([facility], [facility]) Diastolic blood pressure 70 mm[Hg] 70 mm[Hg] [facility] ([facility], [facility]) Systolic blood pressure 110 mm[Hg] 110 mm[Hg] [facility], [facility]) Body mass index (BMI) [Ratio] 46.9 kg/m2 46.9 k g/m2 [facility] ([facility], [facility]) Body height 60 [in_i] 60 [in_i] [facility], [facility]) 5'0" Body weight 240.00 [lb_av] 240.00 [lb_av] [facility] ([facility], [facility]) Body temperature 98.0 [degF] 98.0 [degF] [facility] ([facility], [facility]) Oxygen saturation in Arterial blood by Pulse oximetry 97 % 97 % [facility] ([facility], [facility]) Respiratory rate 16 /min 16 /min [facility] ( [facility], [facility]) Heart rate 59 /min 59 /min [facility] ([facility], [facility]) Diastolic blood pressure 64 mm[Hg] 64 mm[Hg] [facility] ([facility], [facility]) Systolic blood pressure 99 mm[Hg] 99 mm[Hg] M [facility] ([facility], [facility]) [place] body weight 100 [lb_av] 100 [lb_av] [facility] ([facility]) Oxygen saturation in Arterial blood by Pulse oximetry 98 % 98 % [facility] Body temperature 97.1 [degF] 97.1 [degF] [facility] ([facility]) Respiratory rate 20 /min 20 /min [facility] ( [facility]) Heart rate 64 /min 64 /min [facility] ([facility]) Body mass index (BMI) [Ratio] 50.3 kg/m2 50.3 k g/m2 [facility] ([facility]) Body weight 253.12 [lb_av] 253.12 [lb_av] [facility] ([facility]) Body height 59.50 [in_i] 59.50 [in_i] [facility] ([facility]) 4'11.50" Diastolic blood pressure 72 mm[Hg] 72 mm[Hg] [facility] ([facility]) Systolic blood pressure 128 mm[Hg] 128 mm[Hg] [facility] ([facility]) Oxygen saturation in Arterial blood by Pulse oximetry 98 % 98 % [facility] Body temperature 97.5 [degF] 97.5 [degF] [facility] ([facility]) Respiratory rate 18 /min 18 /min [facility] ( [facility]) Heart rate 75 /min 75 /min [facility] ([facility]) Body mass index (BMI) [Ratio] 48.7 kg/m2 48.7 k g/m2 [facility] ([facility]) Body weight 245.25 [lb_av] 245.25 [lb_av] [facility] ([facility]) Body height 59.50 [in_i] 59.50 [in_i] [facility] ([facility]) " Diastolic blood pressure 78 mm[Hg] 78 mm[Hg] [facility] ([facility]) Systolic blood pressure 138 mm[Hg] 138 mm[Hg] [facility] ([facility]) Oxygen saturation in Arterial blood by Pulse oximetry 99 % 99 % [facility] ([facility]) Body temperature 97.2 [degF] 97.2 [degF] [facility] ([facility]) Respiratory rate 20 /min 20 /min [facility] ( [facility]) Heart rate 74 /min 74 /min [facility] ([facility]) Body mass index (BMI) [Ratio] 50.5 kg/m2 50.5 k g/m2 [facility] ([facility]) Body weight 254.25 [lb_av] 254.25 [lb_av] [facility] ([facility]) Body height 59.50 [in_i] 59.50 [in_i] [facility] ([facility]) " Diastolic blood pressure 78 mm[Hg] 78 mm[Hg] [facility] ([facility]) Systolic blood pressure 138 mm[Hg] 138 mm[Hg] [facility] ([facility])
[2021-01-20] MEDS ORDERED: LIDOCAINE 2% 5ML JELLY UROJET TOP ONE (10:45)
[2021-01-20 11:13] LABS: BASO % 0.6 % (0.0-1.0); EOS # 0.4 10^3/uL (0.0-0.5); EOS % 6.6 % (0.0-3.0); HEMOGLOBIN 10.7 g/dl (12.0-15.5); LYMPH # 2.2 10^3/uL (1.5-5.0); MEAN CORPUSCULAR HEMOGLOBIN 31.6 pg (27.0-33.0); MEAN CORPUSCULAR HGB CONC 30.6 g/dl (32.0-36.5); MEAN CORPUSCULAR VOLUME 103.2 fl (80.0-96.0); MONO # 0.5 10^3/uL (0.0-0.8); NEUTROPHILS # 3.2 10^3/uL (1.5-8.5); NEUTROPHILS % 50.5 % (36.0-66.0); PLATELET COUNT, AUTOMATED 193 10^3/uL (150-450); RED BLOOD COUNT 3.39 10^6/uL (4.00-5.40); WHITE BLOOD COUNT 6.4 10^3/uL (4.0-10.0)
--- NOTE | 2021-01-20 11:13 | REP ---
INDICATION: fall. COMPARISON: Comparison CT study 04 September 2020.. TECHNIQUE: Helical scanning is acquired. 5 mm axial images were reformatted. Coronal MPR images were generated. FINDINGS: Bone window settings demonstrate an intact bony calvarium. There is no evidence of skull fracture or incidental bony calvarial lesion. The visualized paranasal sinuses appear clear. No intraorbital abnormality is seen. On soft tissue window setting images; the lateral, third, and fourth ventricles are normal in size and position. De La Torre-white differentiation pattern is normal above and below the tentorium. There are is no evidence of intracranial hemorrhage. No mass, edema, infarction, or midline shift is seen. No extra-axial fluid collection is appreciated. There is generalized volume loss again noted. There is minimal vascular calcification. IMPRESSION: No acute intracranial abnormality. No evidence of skull fracture.. <Electronically signed by Michael Ang > 01/20/21 1107
--- NOTE | 2021-01-20 11:16 | REP ---
INDICATION: fall. COMPARISON: No comparison CT study.. TECHNIQUE: Helical scanning is acquired and overlapping 2 mm high resolution axial images were generated and reviewed at bone and soft tissue window settings. Coronal and sagittal multiplanar re-formations images are generated. FINDINGS: There is no evidence of cervical spine element fracture. No skull base fracture is seen. Cervical vertebral body heights are preserved. Alignment is normal. Facet joints are normally aligned bilaterally at each cervical level on multiplanar re-formations images. There is no evidence of intraspinal or paraspinal hematoma. No extra vertebral abnormality is seen. There is degenerative disc disease at C5-6 and C6-7. At C6-7, there is calcification associated with a left posterior disc protrusion which contributes to left-sided neural foraminal narrowing and narrowing of the spinal canal at this level. There is diffuse bulging of the remainder of the C6-7 disc. There is osteoarthritic facet hypertrophy bilaterally in the mid cervical spine levels as well. IMPRESSION: Degenerative spondylosis changes. No fracture or other acute bony abnormality.. <Electronically signed by Michael Ang > 01/20/21 [id number]
--- NOTE | 2021-01-20 11:17 | REP ---
INDICATION: dizzy. COMPARISON: Comparison chest x-ray October 31, 2020.. TECHNIQUE: AP sitting portable technique. Single-view. FINDINGS: Monitoring electrodes and oxygen delivery tubing are seen. The lungs are well inflated and free of infiltrate. Pleural angles are sharp. Heart is enlarged unchanged. The aorta is calcific and somewhat tortuous. There is an old healed fracture of the surgical neck of the left humerus. No acute bony abnormality is seen. IMPRESSION: Mild cardiomegaly. Otherwise no acute disease. <Electronically signed by Michael Ang > 01/20/21 1116
--- OUTSIDE RECORDS SUMMARY | 2021-01-20 11:28 | CCD ---
Author Author [facility] Organization [facility] Address Unknown Phone Unavailable Care Team Providers Care Battery Recharger Name Role Phone Deysi LARA MD Unavailable [...] L REX ROTHMAN Unavailable Unavailable LARA, L RXE ROTHMAN Unavailable Unavailable LARA, L REX ROTHMAN [...] Unavailable Unavailable Oscar, Shay PA Unavailable Unavailable Oscra, Shay PA Unavailable Unavailable Oscar, Shay PA [...] K MAX PA Unavailable Unavailable Britton, Jyotsna WARP PLACER Unavailable Unavailable Britton, Jyotsna WARP PLACER Unavailable Unavailable Britton, Jyotsna WARP PLACER Unavailable Unavailable Britton, Jyotsna WARP PLACER Unavailable Unavailable Britton, Jyotsna WARP PLACER Unavailable Unavailable Britton, Jyotsna WARP PLACER Unavailable Unavailable Britton, Jyotsna WARP PLACER Unavailable Unavailable Britton, Jyotsna WARP PLACER Unavailable Unavailable Britton, Jyotsna WARP PLACER Unavailable Unavailable Britton, Jyotsna WARP PLACER Unavailable Unavailable Britton, Jyotsna WARP PLACER Unavailable Unavailable Ureña, Gardenia Maile PA Unavailable [...] is protected by Article 27-F of the [facility] Public Health law. If you continue you may have access to information: Regarding HIV / AIDS; Provided by facilities licensed or operated by the [facility] Office of Mental Health; or Provided by the [facility] Office for People With Developmental Disabilities. If such information is present, then the following [facility] mandated warning applies: This information has [...] law may result in a fine or residential sentence or both. A general authorization for the release of medical or other information is NOT sufficient authorization for further disc losure. Family History Family Member Name Family Member Gender Family Member Status Date o f Status Description Data Source(s) Unknown Unknown Problem [facility] ([facility]) Unknown Female Problem [facility] ([facility]) Unknown Female Encounters Encounter Providers Location Date Indications Data Source(s ) Outpatient Attender: Shay DISLA Family [facility] 09/26/2020 01:00:00 PM EDT [facility] ([facility]) Outpatient Attender: KARMEN Gil [facility] 09/06/2020 01:00:00 PM EDT [facility] ([facility]) Outpatient Attender: Maile Gil [facility] 09/04/2020 05:45:00 PM EDT [facility] ([facility]) Outpatient Attender: Jyotsna Khan Gil [facility] 08/23/2020 02:45:00 PM EDT [facility] ([facility]) Outpatient Attender: MAX Gil Primary 08/10/2020 12:25:00 PM EDT [facility] ([facility]) Outpatient Attender: Shay DISLA Family Medicine [facility] 06/20/2020 03:40:00 PM EDT [facility] ([facility]) Outpatient Attender: Shay DISLA Family [facility] 05/22/2020 01:40:00 PM EDT [facility] ([facility]) Outpatient Referrer: REX LARA MD 03/15/2020 02:21:00 PM EDT [facility] Outpatient Attender: Karmen DISLA [facility] 03/01/2020 10:20:00 AM EDT [facility] ([facility]) Outpatient Attender: Shay DISLA Family [facility] 01/22/2020 12:00:00 PM EST [facility] ([facility]) Outpatient Referrer: REX LARA MD 12/14/2019 10:12:00 AM EST [facility] Outpatient Referrer: RXE LARA MD 12/08/2019 11:25:00 AM EST [facility] Outpatient Referrer: REX LARA MD 12/06/2019 04:40:00 PM EST [facility] Immunizations Vaccine Date Status Description Data Source(s) New in 2011. IIV4 09/26/2020 01:33:00 PM EDT completed [facility] ([facility]) Medications Medication Brand Name Start [...] MG 09/06 12:00:00 AM EDT completed [facility] ([facility]) Medication administered onsite NITROFURANTOIN, MACROCRYSTALS 25 MG / Ni trofurantoin, Monohydrate 75 MG Oral Capsule Nitrofurantoin Monohyd Macro 09/06/2020 12:00:00 AM EDT ORAL active [facility] ([facility]) Rocephin/Ceftriaxone Sodium Injection Per 250 MG 09/05 12:00:00 AM EDT completed [facility] ([facility]) Medication administered onsite Rocephin/Ceftriaxone Sodium Injection Per 250 MG 09/04 12:00:00 AM EDT completed [facility] ([facility]) Medication administered onsite Cephalexin 500 MG Oral Capsule Cephalexin 08/23/2020 12:00:00 AM EDT ORAL completed [facility] ([facility]) Cephalexin 250 MG Oral Capsule Cephalexin 08/23/2020 12:00:00 AM EDT ORAL completed [facility] ([facility]) 250 mg 08/23/2020 12:00:00 AM EDT capsule [...] 0 AM EDT active [facility] ([facility]) 20 mg 08/15/2020 12:00:00 AM EDT tablet [...] 12:00:00 AM EDT ORAL completed [facility] ([facility]) Cephalexin 500 MG Oral Capsule CEPHALEXIN 08/10/2020 [...] AM EDT ORAL completed [facility] ([facility]) 100 mg 06/20/2020 12:00:00 AM EDT capsule 20 TAKE ONE CAPSULE BY MOUTH EVERY 12 HOURS UNTIL GONE TAKE ONE CAPSULE BY MOUTH EVERY 12 HOURS UNTIL GONE SO LD: 06/21/2020 [facility] NITROFURANTOIN, MACROCRYSTALS 25 MG / Ni trofurantoin, Monohydrate 75 MG Oral Capsule [Macrobid] Macrobid 06/20/2020 12:00:00 AM EDT ORAL completed [facility] ([facility]) 100 mg 06/10/2020 12:00:00 AM [...] THROUGH WEDNESDAY SOLD: 08/19/2020 [facility] Calcitriol 0.00298 MG Oral Capsule 0.25 mcg CALCITRIOL 05/23/2020 [...] 03/05 12:00:00 AM EDT ORAL completed [facility] ([facility]) 750 mg 03/05/2020 12:00:00 AM EDT tablet 7 TAKE ONE TABLET BY MOUTH EVERY DAY FOR 7 DAYS TAKE ONE TABLET BY MOUTH EVERY DAY FOR 7 DAYS SOLD: 03/06/2020 [facility] Cephalexin 500 MG Oral Capsule Cephalexin 03/03/2020 12:00:00 AM EDT ORAL completed [facility] ([facility]) NITROFURANTOIN, MACROCRYSTALS 100 MG Oral Capsule Nitrofuran toin Macrocrystal 03/01/2020 12:00:00 AM EDT ORAL completed [facility] ([facility]) 100 mg 03/01/2020 12:00:00 AM [...] EVERY DAY SOLD: 03/02/2020 [facility] Calcitriol 0.80216 MG Oral Capsule 0.25 mcg CALCITRIOL 01/23/2020 [...] EVERY DAY SOLD: 04/01/2020 [facility] Calcitriol 0.74395 MG Oral Capsule 0.25 mcg CALCITRIOL 01/23/2020 [...] Monohydrate/Macrocrystals 12/03/2019 12:00:00 AM EST completed [facility] ([facility]) doxycycline hyclate 100 MG Oral Tablet Doxycycline Hyclate 1 12/13/2018 12:00:00 AM EST ORAL completed [facility] ([facility]) 150 mg 10/09/2019 12:00:00 AM [...] type / Coverage type Policy ID Covered democrat ID Covered democrat's relationship to [place] Policy [place] Plan Information MEDICARE COMPLETE [id number] SP [id number] SORAYA [id number] SP [id number] [facility] [id number] SP [id number] MEDICARE [id number] SP [id number] MEDICARE COMPLETE-[facility] O [id number] S [id number] MEDICARE COMPLETE [id number] SP [id number] MEDICARE COMPLETE [id number] SP [id number] MEDICARE C [id number] S [id number] [id number] MEDICAID M [id number] S [id number] [facility] [id number] SP [id number] MEDICARE [id number] SP [id number] P37 MEDICAID [id number] SP [id number] [place] [id number] Self [id number] [place] [id number] Self [id number] [place] [id number] Self [id number] MEDICAID [id number] S [id number] [facility] MEDICARE DIVISION [id number] S [id number] [place] [id number] S [id number] [place] B [id number] Self [id number] Medicare [facility] Medicare Primary [id number] Self [id number] [place]IC[place] [id number] S [id number] MEDICAID [id number] S [id number] [facility] MEDICARE DIVISION [id number] S [id number] [place]IC[place] [id number] S [id number] [facility] MEDICARE DIVISION [id number] S [id number] [place]ICARE [place] [id number] S [id number] SELF PAY UNAVAILABLE [place] BLE [place] [id number] Self [id number] [place] [id number] Self [id number] Medicare [facility] Medicare Primary [id number] Self [id number] MEDICAID [id number] S [id number] [facility] MEDICARE DIVISION [id number] S [id number] [place] [id number] Self [id number] [place] [id number] Self [id number] [place] [id number] Self [id number] [place] [id number] Self [id number] [place] [id number] Self [id number] MEDICARE [id number] SP [id number] A MEDICAID [id number] SP [id number] MEDICARE [id number] SP [id number] [place] [id number] Self [id number] [place] [id number] Self [id number] [place] [id number] Self [id number] [place] Primary [id number] Self [id number] [place] [id number] S [id number] [place] [id number] Self [id number] [place] [id number] Self [id number] [place] [id number] Self [id number] [place] [id number] Self [id number] [place] [id number] Self [id number] [place] Primary [id number] Self [id number] MEDICARE C [id number] S [id number] [place] [id number] Self [id number] [place] Primary [id number] Self [id number] MEDICAID M [id number] Self [id number] MEDICARE A [id number] Self [id number] [id number] Self [id number] [place] Primary [id number] Self [id number] S [facility] C [id number] S [id number] [place] [id number] Self [id number] [place] Primary [id number] Self [id number] Medicare Medicare Primary [id number] Self [id number] Medicare Medicare Primary [id number] Self 05 [id number] [place] [id number] Self [id number] [place] Primary [id number] Self [id number] [place] [id number] Self [id number] [place] Primary [id number] Self [id number] [place] Primary Self UHC [place] MEDICARE COMPLETE G [id number] Self [id number] [place] Part B Self Medicare [facility] Medicare Primary Self SELF PAY UNAVAILABLE SP UNAVAILA BLE MEDICAID-O/P [id number] MEDICARE -O/P [id number] 18 [id number] Surgeries/Procedures Procedure Description Date Indications Data Source(s) Therapeutic, Prophylactic Or Diagnostic Injection Subq/Im 09/06/2020 12:00:00 AM EDT [facility] ([facility]) Therapeutic, Prophylactic Or Diagnostic Injection Subq/Im 09/05/2020 12:00:00 AM EDT [facility] ([facility]) Therapeutic, Prophylactic Or Diagnostic Injection Subq/Im 09/04/2020 12:00:00 AM EDT [facility] ([facility]) Results ID Date Data Source [id number] 11/15/2020 09:55:00 AM EST [facility] Name Value Range Interpretation Code Description Data Guillermina rce(s) Supporting Document(s) SARS-CoV-2 (COVID 19) [facility] This lab was ordered by [facility] a nd reported by [facility]. ID Date Data Source [id number] 11/14/2020 09:00:00 AM EST [facility] Name Value Range Interpretation Code Description Data Guillermina rce(s) Supporting Document(s) SARS coronavirus 2 RNA [facility] This lab was ordered by [facility] and reported by [facility]. ID Date Data Source [id number] 11/13/2020 12:00:00 AM EST [facility] Name Value Range Interpretation Code Description Data Guillermina rce(s) Supporting Document(s) SARS-CoV2 Rapid Antigen [facility] This lab was ordered by [facility] and reported by [facility]. ID Date Data Source [id number] 11/10/2020 02:04:00 PM EST [facility] Name Value Range Interpretation Code Description Data Guillermina rce(s) Supporting Document(s) SARS coronavirus 2 RNA [facility] This lab was ordered by [facility] and reported by [facility]. ID Date Data Source [id number] 10/31/2020 01:38:00 PM EST [facility] ([facility]) Name Value Range Interpretation Code Description Data Guillermina rce(s) Supporting Document(s) C reactive protein [Mass/volume] in Serum or Plasma by High sensitivity method 28.40 mg/dL 0.00-0.30 Above high normal [facility] ([facility]) Lactate [Mass/volume] in Serum or Plasma 4.4 mmol/L 0.4-2.0 Above upper panic limits [facility] ([facility]) Y/N query for Sepsis Lactate Rule: Y ID Date Data Source [id number] 10/31/2020 01:38:00 PM EST [facility] ([facility]) Name Value Range Interpretation Code Description Data Guillermina rce(s) Supporting Document(s) Blood Urea Nitrogen 40 mg/dL 7-18 Above high normal [facility] ([facility]) Glucose, Fasting 83 mg/dL 70-100 Normal (applies to non-numeric results) [facility] ([facility]) Creatinine For GFR 1.77 mg/dL 0.55-1.30 Above high normal [facility] ([facility]) Sodium Level 146 meq/L 136-145 Above high normal [facility] T ([facility]) Glomerular Filtration Rate 30.4 Below low normal [facility] ([facility]) <content>Units are mL/min/1.73 m2</content>
<content></content>
<content>Chronic Kidney Disease Staging per NKF:</content>
<content></content>
<content>Stage I & II GFR >=60 Normal to Mildly Decreased</content>
<content>Stage III GFR 30- 59 Moderately Decreased</content>
<content>Stage IV GFR 15-29 Severely Decreased</content>
<content>Stage V GFR <15 Very Little GFR Left</content>
<content>ESRD GFR <15 on HOUSE SERVANT</content>
<content></content> Potassium Serum 4.1 meq/L 3.5-5.1 Normal (applies to non-numeric results) [facility] ([facility]) Chloride Level 110 meq/L 98-107 Above high normal [facility] ([facility]) Carbon Dioxide Level 27 meq/L 21-32 Normal (applies to non-num ruby results) [facility] ([facility]) Calcium Level 9.3 mg/dL 8.8-10.2 Normal (applies to non-numeric re sults) [facility] ([facility]) Anion Gap 9 meq/L 8-16 Normal (applies to non-numeric resul ts) [facility] ([facility]) ID Date Data Source [id number] 10/31/2020 01:38:00 PM EST [facility] ([facility]) Name Value Range Interpretation Code Description Data Guillermina rce(s) Supporting Document(s) Ast/Sgot 54 U/L 7-37 Above high normal [facility] ([facility]) Bilirubin,Total 1.1 mg/dL 0.2-1.0 Above high normal [facility] ([facility]) Alt/SGPT 34 U/L 12-78 Normal (applies to non-numeric resul ts) [facility] ([facility]) Alkaline Phosphatase 100 U/L 45-117 Normal (applies to non-num ruby results) [facility] ([facility]) Total Protein 6.0 GM/DL 6.4-8.2 Below low normal [facility] T ([facility]) Albumin 2.4 GM/DL 3.2-5.2 Below low [facility] Bilirubin,Direct 0.5 mg/dL 0.0-0.2 Above high normal [facility] ([facility]) Albumin/Globulin Ratio 0.7 1.2-2.2 Below low normal [facility] ([facility]) ID Date Data Source [id number] 10/31/2020 01:38:00 PM EST [facility] ([facility]) Name Value Range Interpretation Code Description Data Guillermina rce(s) Supporting Document(s) CK-MB Value Mass 2.6 ng/mL Normal (applies to non-numeric results) [facility] ([facility]) MB/CK Relative Index 0.82 Normal (applies to non-num ruby results) [facility] ([facility]) <content>DIAGNOSIS CRITERIA</content>
<content>MMB ng/ml Relative Index (RI)</content>
<content>NON-AMI < or = 5 N/A</content>
<content>ORTIZ ZONE > 5 < or = 4</content>
<content>AMI > 5 > 4</content>
<content></content> CPK Creatine Phosphokinase 316 U/L 26-192 Above high normal [facility] ([facility]) Troponin I Laboratory test result Normal (applies to non-n umeric results) [facility] ([facility]) <content>Troponin I Reference Interval f or Siemens [place] LOCI:</content>
<content></content>
<content>99th Percentile= 0.00-0.045 ng/ml</content>
<content></content>
<content>Risk Stratification:</content>
<content><= 0.10 ng/ml Decreased Risk for Adverse Clinical</content>
<content>Events.</content>
<content>0.10-1.50 ng/ml Increased Risk for Adverse Clinical</content>
<content>Events. Evaluation of additional</content>
<content>criterion and/or repeat testing in 2-6</content>
<content>hours is suggested to rule out myocardial</content>
<content>damage.</content>
<content>>= 1.50 ng/ml Indicative of Myocardial Injury.</content>
<content></content> ID Date Data Source [id number] 10/31/2020 01:38:00 PM EST [facility] ([facility]) Name Value Range Interpretation Code Description Data Guillermina rce(s) Supporting Document(s) aPTT in Platelet poor plasma by Coagulation assay 25.2 s 24.2-38.5 Normal (applies to non-numeric results) [facility] ([facility]) ID Date Data Source [id number] 10/31/2020 01:38:00 PM EST [facility] ([facility]) Name Value Range Interpretation Code Description Data Guillermina rce(s) Supporting Document(s) Inr 1.58 Normal (applies to non-numeric resul ts) [facility] ([facility]) THERAPUTIC HUMAN INR VALUES INDICATIONS NORMAL RANGES PROPHYLAXIS/TREATMENT OF: VENOUS THROMBOSIS 2.0-3.0 PULMONARY EMBOLISM 2.0-3.0 PREVENTION OF SYSTEMIC EMBOLISM FROM: TISSUE HEART VALVES 2.0-3.0 ACUTE MYOCARDIAL INFARCTION 2.0-3.0 VALVULAR HEART DISEASE 2.0-3.0 ATRIAL FIBRILLATION 2.0-3.0 MECHANICAL VALVES(HIGH RISK) 2.5-3.5 RECURRENT MYOCARDIAL INFARCTION 2.5-3.5 Prothrombin Time 19.2 s 12.5-14.3 Above high normal [facility] ([facility]) ID Date Data Source [id number] 10/31/2020 01:38:00 PM EST [facility] ([facility]) Name Value Range Interpretation Code Description Data Guillermina rce(s) Supporting Document(s) Venous PH 7.338 units 7.330-7.430 Normal (applies to non-numeric res ults) [facility] ([facility]) Venous Total Co2 29.6 meq/L 24.0-28.0 Above high normal [facility] ([facility]) Venous Partial Pressure Co2 53.2 mmHg 38.0-50.0 Above high normal [facility] ([facility]) Venous Partial Pressure O2 79.7 mmHg 30.0-50.0 Above high normal [facility] Venous Hco3 27.9 meq/L 23.0-27.0 Above high normal [facility] ([facility]) Venous Standard Hco3 25.5 meq/L Normal (applies to non-num ruby results) [facility] ([facility]) Venous Base Excess 1.2 Normal (applies to non-numer ic results) [facility] ([facility]) Venous O2 Saturation 95.2 % 60.0-80.0 Above high normal [facility] ID Date Data Source [id number] 10/31/2020 01:38:00 PM EST [facility] ([facility]) Name Value Range Interpretation Code Description Data Guillermina rce(s) Supporting Document(s) Platelets [#/volume] in Blood by Estimate Laboratory test result Normal (applies to non-numeric results) [facility] ([facility]) ID Date Data Source [id number] 10/31/2020 01:38:00 PM EST [facility] ([facility]) Name Value Range Interpretation Code Description Data Guillermina rce(s) Supporting Document(s) Bands 37 % Above high normal [facility] ([facility] Neutrophils 44 % 28-66 Normal (applies to non-numeric resu lts) [facility] ([facility]) Monocytes 1 % 0-5 Normal (applies to non-numeric resul ts) [facility] ([facility]) Metamyelocytes 8 % 0-0 Above high normal [facility] ([facility]) Lymphocytes 7 % 16-44 Below low normal [facility] ([facility]) Toxic Granulation Laboratory test result Normal (applies to non-numeric results) [facility] ([facility]) Myelocytes 3 % 0-0 Above high normal [facility] ([facility]) Macrocytosis Laboratory test result Normal (applies to non -numeric results) [facility] ([facility]) Laboratory test finding (navigational concept) Laboratory test r esult Normal (applies to non-numeric results) [facility] ([facility]) ID Date Data Source [id number] 10/31/2020 01:38:00 PM EST [facility] ([facility]) Name Value Range Interpretation Code Description Data Guillermina rce(s) Supporting Document(s) White Blood Count 6.5 10 4.0-10.0 Normal (applies to non-numeri c results) [facility] ([facility]) Hemoglobin 12.7 g/dL 12.0-15.5 Normal (applies to non-numeric resul ts) [facility] ([facility]) Red Blood Count 3.79 10 4.00-5.40 Below low normal [facility] ([facility]) Hematocrit 39.2 % 36.0-47.0 Normal (applies to non-numeric resul ts) [facility] ([facility]) Mean Corpuscular Hemoglobin 33.5 pg 27.0-33.0 Above high normal [facility] Mean Corpuscular HGB Conc 32.4 g/dL 32.0-36.5 Normal (applies to non-numeric results) [facility] ([facility]) Mean Corpuscular Volume 103.4 fl 80.0-96.0 Above high normal [facility] ([facility]) Nucleated Red Blood Cell % 0.0 % 0-0 Normal (applies to n on-numeric results) [facility] ([facility]) Red Cell Distribution Width 14.9 % 11.5-14.5 Above high normal [facility] Platelet Count, Automated 139 10 150-450 Below low normal [facility] ([facility]) ID Date Data Source [id number] 10/31/2020 12:40:00 PM EST [facility] Name Value Range Interpretation Code Description Data Guillermina rce(s) Supporting Document(s) SARS coronavirus 2 RNA [Presence] in Res piratory specimen by NENA with probe detection [facility] This lab was ordered by [facility] a nd reported by [facility]. ID Date Data Source [id number] 09/04/2020 07:51:00 PM EDT [facility] ([facility]) Name Value Range Interpretation Code Description Data Guillermina rce(s) Supporting Document(s) Bacteria identified in Urine by Culture Laboratory test result [facility] ([facility]) <content>FULL REPORT IN LAB NOTES (eCW a [...] <=1 S</content>
<content></content> ID Date Data Source [id number] 08/23/2020 12:45:00 PM EDT [facility] ([facility]) Name Value Range Interpretation Code Description Data Guillermina rce(s) Supporting Document(s) Bacteria identified in Urine by Culture Laboratory test result [facility] ([facility]) <content>FULL REPORT IN LAB NOTES (eCW a [...] FOR ESBL</content>
<content></content> ID Date Data Source [id number] 08/10/2020 01:19:00 PM EDT [facility] ([facility]) Name Value Range Interpretation Code Description Data Guillermina rce(s) Supporting Document(s) Bacteria identified in Urine by Culture Laboratory test result [facility] ([facility]) <content>FULL REPORT IN LAB NOTES (eCW a [...] FOR ESBL</content>
<content></content> ID Date Data Source [id number] 06/20/2020 04:14:00 PM EDT [facility] ([facility]) Name Value Range Interpretation Code Description Data Guillermina rce(s) Supporting Document(s) Inhouse Nitrite Laboratory test result [facility] ([facility]) Inhouse Leukocytes Laboratory test result [facility] ([facility]) Inhouse Protein Laboratory test result [facility] ([facility]) Inhouse PH 5.0 [facility] ([facility]) Inhouse Urobilinogen 0.2 [facility] ([facility]) Inhouse Ketones Laboratory test result [facility] ([facility]) Inhouse Specific [place] 1.010 [facility] ([facility]) Inhouse Hemoglobin Laboratory test result [facility] ([facility]) Inhouse Bilirubin Laboratory test result [facility] ([facility]) Inhouse Glucose Laboratory test result [facility] ([facility]) ID Date Data Source [id number] 03/06/2020 04:00:00 PM EDT [facility] Name Value Range Interpretation Code Description Data Guillermina rce(s) Supporting Document(s) SARS CORONAVIRUS 2 RNA [facility] This lab was ordered by [facility] and reported by [facility]. ID Date Data Source [id number] 03/06/2020 04:00:00 PM EDT [facility] ([facility]) Name Value Range Interpretation Code Description Data Guillermina rce(s) Supporting Document(s) Coronavirus 2019 Nasopharygeal Laboratory test result [facility] ([facility]) Testing was performed using the shannon(R) SARS-CoV-2 test. This test was developed and its performance characteristics determined by [employer]. This test has not been FDA cleared [...] is terminated or revoked sooner. Performed at: [facility] [id number] Courtesy Clerk: Shobha Green MD, Phone: [phone] Not Detected ID Date Data Source [id number] 03/01/2020 10:36:00 AM EDT [facility] ([facility]) Name Value Range Interpretation Code Description Data Guillermina rce(s) Supporting Document(s) Inhouse Leukocytes Laboratory test result [facility] ([facility]) Inhouse Nitrite Laboratory test result [facility] ([facility]) Inhouse Hemoglobin Laboratory test result [facility] ([facility]) Inhouse Protein Laboratory test result [facility] ([facility]) Inhouse PH 6.0 [facility] ([facility]) Inhouse Urobilinogen 0.2 [facility] ([facility]) Inhouse Bilirubin Laboratory test result [facility] ([facility]) Inhouse Ketones Laboratory test result [facility] ([facility]) Inhouse Specific [place] 1.010 [facility] ([facility]) Inhouse Glucose Laboratory test result [facility] ([facility]) ID Date Data Source [id number] 03/01/2020 10:30:00 AM EDT [facility] ([facility]) Name Value Range Interpretation Code Description Data Guillermina rce(s) Supporting Document(s) Bacteria identified in Urine by Culture Laboratory test result Normal (applies to non-numeric results) [facility] ([facility]) <content>FULL REPORT IN LAB NOTES [...] FOR ESBL</content>
<content></content> ID Date Data Source [id number] 02/09/2020 12:18:00 PM EDT [facility] ([facility]) Name Value Range Interpretation Code Description Data Guillermina rce(s) Supporting Document(s) Bacteria identified in Urine by Culture Laboratory test result Normal (applies to non-numeric results) [facility] FULL REPORT IN LAB NOTES ([facility] and [facility] ). SPECIMEN APPEARS CONTAMINATED ID Date Data Source [id number] 01/11/2020 08:45:00 PM EST [facility] ([facility]) Name Value Range Interpretation Code Description Data Guillermina rce(s) Supporting Document(s) Thyrotropin [Units/volume] in Serum or Plasma 1.090 uIU/ML 0. 358-3.740 Normal (applies to non-numeric results) [facility] ([facility]) Natriuretic peptide.B prohormone N-Terminal [Mass/volu me] in Serum or Plasma 1672 pg/mL Above high normal [facility] ID Date Data Source [id number] 01/11/2020 08:45:00 PM EST [facility] ([facility]) Name Value Range Interpretation Code Description Data Guillermina rce(s) Supporting Document(s) Blood Urea Nitrogen 27 mg/dL 7-18 Above high normal [facility] ([facility]) Creatinine For GFR 1.81 mg/dL 0.55-1.30 Above high normal [facility] Glucose, Fasting 111 mg/dL 70-100 Above high normal [facility] ([facility]) Potassium Serum 3.8 meq/L 3.5-5.1 Normal (applies to non-numeric results) [facility] ([facility]) Sodium Level 141 meq/L 136-145 Normal (applies to non-numeric res ults) [facility] ([facility]) Glomerular Filtration Rate 29.7 Below low normal [facility] ([facility]) <content>Units are mL/min/1.73 m2</content>
<content></content>
<content>Chronic Kidney Disease Staging per NKF:</content>
<content></content>
<content>Stage I & II GFR >=60 Normal to Mildly Decreased</content>
<content>Stage III GFR 30- 59 Moderately Decreased</content>
<content>Stage IV GFR 15-29 Severely Decreased</content>
<content>Stage V GFR <15 Very Little GFR Left</content>
<content>ESRD GFR <15 on HOUSE SERVANT</content>
<content></content> Anion Gap 8 meq/L 8-16 Normal (applies to non-numeric resul ts) [facility] ([facility]) Carbon Dioxide Level 29 meq/L 21-32 Normal (applies to non-num ruby results) [facility] ([facility]) Chloride Level 104 meq/L 98-107 Normal (applies to non-numeric r esults) [facility] ([facility]) Calcium Level 8.4 mg/dL 8.8-10.2 Below low normal [facility] T ([facility]) ID Date Data Source [id number] 01/11/2020 08:45:00 PM EST [facility] ([facility]) Name Value Range Interpretation Code Description Data Guillermina rce(s) Supporting Document(s) Ast/Sgot 32 U/L 7-37 Normal (applies to non-numeric resul ts) [facility] ([facility]) Alkaline Phosphatase 154 U/L 45-117 Above high normal [facility] Alt/SGPT 23 U/L 12-78 Normal (applies to non-numeric resul ts) [facility] ([facility]) Bilirubin,Total 1.9 mg/dL 0.2-1.0 Above high normal [facility] ([facility]) Total Protein 6.2 GM/DL 6.4-8.2 Below low normal [facility] T ([facility]) Albumin 2.1 GM/DL 3.2-5.2 Below low normal [facility] ( [facility]) Bilirubin,Direct 0.7 mg/dL 0.0-0.2 Above high normal M [facility] ([facility]) Albumin/Globulin Ratio 0.51 1.00-1.93 Below low normal [facility] ([facility]) ID Date Data Source [id number] 01/11/2020 08:45:00 PM EST [facility] ([facility]) Name Value Range Interpretation Code Description Data Guillermina rce(s) Supporting Document(s) Lactate [Mass/volume] in Serum or Plasma 1.8 mmol/L 0.4-2.0 Normal (applies to non-numeric results) [facility] ([facility]) Y/N query for Sepsis Lactate Rule: Y ID Date Data Source [id number] 01/11/2020 08:45:00 PM EST [facility] ([facility]) Name Value Range Interpretation Code Description Data Guillermina rce(s) Supporting Document(s) Red Blood Count 3.59 10 4.00-5.40 Below low normal [facility] ([facility]) White Blood Count 13.2 10 4.0-10.0 Above high normal [facility] ([facility]) Hemoglobin 11.6 g/dL 12.0-15.5 Below low normal [facility] ( [facility]) Mean Corpuscular Hemoglobin 32.3 pg 27.0-33.0 Norm al (applies to non-numeric results) [facility] ([facility]) Hematocrit 36.2 % 36.0-47.0 Normal (applies to non-numeric resul ts) [facility] ([facility]) Mean Corpuscular Volume 100.8 fl 80.0-96.0 Above high normal [facility] ([facility]) Mean Corpuscular HGB Conc 32.0 g/dL 32.0-36.5 Normal (applies to non-numeric results) [facility] Platelet Count, Automated 187 10 150-450 Normal (applies to non-numeric results) [facility] ([facility]) Red Cell Distribution Width 15.2 % 11.5-14.5 Above high normal [facility] ([facility]) Boyd % 4.2 % 0.0-5.0 Normal (applies to non-numeric resul ts) [facility] ([facility]) Lymph % 13.2 % 24.0-44.0 Below low normal [facility] ( [facility]) Neutrophils % 80.4 % 36.0-66.0 Above high normal [facility] ([facility]) Eos % 0.3 % 0.0-3.0 Normal (applies to non-numeric resul ts) [facility] ([facility]) Immature Granulocyte % 1.7 % 0-3.0 Normal (applies to non-n umeric results) [facility] ([facility]) Baso % 0.2 % 0.0-1.0 Normal (applies to non-numeric resul ts) [facility] ([facility]) Nucleated Red Blood Cell % 0.0 % 0-0 Normal (applies to n on-numeric results) [facility] ([facility]) Lymph # 1.7 10 1.5-5.0 Normal (applies to non-numeric resul ts) [facility] ([facility]) Boyd # 0.6 10 0.0-0.8 Normal (applies to non-numeric resul ts) [facility] ([facility]) Neutrophils # 10.6 10 1.5-8.5 Above high normal [facility] ([facility]) Baso # 0.0 10 0.0-0.2 Normal (applies to non-numeric resul ts) [facility] ([facility]) Eos # 0.0 10 0.0-0.5 Normal (applies to non-numeric resul ts) [facility] ([facility]) ID Date Data Source [id number] 12/30/2019 09:30:00 AM EST [facility] ([facility]) Name Value Range Interpretation Code Description Data Guillermina rce(s) Supporting Document(s) Red Blood Count 3.45 10 4.00-5.40 Below low normal [facility] ([facility]) White Blood Count 5.7 10 4.0-10.0 Normal (applies to non-numeri c results) [facility] ([facility]) Hemoglobin 11.1 g/dL 12.0-15.5 Below low normal [facility] ( [facility]) Mean Corpuscular Hemoglobin 32.2 pg 27.0-33.0 Norm al (applies to non-numeric results) [facility] ([facility]) Hematocrit 36.3 % 36.0-47.0 Normal (applies to non-numeric resul ts) [facility] ([facility]) Mean Corpuscular Volume 105.2 fl 80.0-96.0 Above high normal [facility] ([facility]) Red Cell Distribution Width 15.7 % 11.5-14.5 Above high normal [facility] ([facility]) Platelet Count, Automated 123 10 150-450 Below low normal [facility] ([facility]) Mean Corpuscular HGB Conc 30.6 g/dL 32.0-36.5 Below low normal [facility] ([facility]) Lymph % 34.0 % 24.0-44.0 Normal (applies to non-numeric resul ts) [facility] ([facility]) Boyd % 6.9 % 0.0-5.0 Above high normal [facility] ([facility]) Neutrophils % 36.2 % 36.0-66.0 Normal (applies to non-numeric re sults) [facility] ([facility]) Immature Granulocyte % 0.2 % 0-3.0 Normal (applies to non-n umeric results) [facility] ([facility]) Baso % 0.5 % 0.0-1.0 Normal (applies to non-numeric resul ts) [facility] ([facility]) Eos % 22.2 % 0.0-3.0 Above high normal [facility] ([facility]) Scan Verified machine results Lymph # 1.9 10 1.5-5.0 Normal (applies to non-numeric resul ts) [facility] ([facility]) Nucleated Red Blood Cell % 0.0 % 0-0 Normal (applies to n on-numeric results) [facility] ([facility]) Neutrophils # 2.1 10 1.5-8.5 Normal (applies to non-numeric re sults) [facility] ([facility]) Boyd # 0.4 10 0.0-0.8 Normal (applies to non-numeric resul ts) [facility] ([facility]) Eos # 1.3 10 0.0-0.5 Above high normal [facility] ([facility]) Baso # 0.0 10 0.0-0.2 Normal (applies to non-numeric resul ts) [facility] ([facility]) ID Date Data Source [id number] 12/30/2019 09:30:00 AM EST [facility] ([facility]) Name Value Range Interpretation Code Description Data Guillermina rce(s) Supporting Document(s) Thyroid Stimulating Hormone 5.130 uIU/ML 0.358-3.740 Above high pascual l [facility] ([facility]) Free T4 0.93 ng/dL 0.76-1.46 Normal (applies to non-numeric resul ts) [facility] ([facility]) ID Date Data Source [id number] 12/30/2019 09:30:00 AM EST [facility] ([facility]) Name Value Range Interpretation Code Description Data Guillermina rce(s) Supporting Document(s) Triglycerides Level 74 mg/dL Normal (applies to non-nume kalpana results) [facility] ([facility]) HDL Cholesterol 41 mg/dL Normal (applies to non-numeric results) [facility] ([facility]) LDL Cholesterol 83 mg/dL Normal (applies to non-numeric results) [facility] ([facility]) Cholesterol Level 139 mg/dL Normal (applies to non-numeri c results) [facility] ([facility]) Non-HDL-C 98 mg/dL Normal (applies to non-numeric resul ts) [facility] Cholesterol Risk Ratio 3.390 Normal (applies to non-n umeric results) [facility]) ID Date Data Source [id number] 12/30/2019 09:30:00 AM EST [facility] ([facility]) Name Value Range Interpretation Code Description Data Guillermina rce(s) Supporting Document(s) Hemoglobin A1c 6.5 % Normal (applies to non-numeric r esults) [facility] ([facility]) REFERENCE RANGES: 4.5-5.6% NORMAL 5.7-6.4% SUGGESTS IMPAIRED GLUCOSE META BOLISM >= 6.5% ABNORMAL Estimated Average Glucose 140 mg/dL 60-110 Above high normal [facility] ([facility]) ID Date Data Source [id number] 12/30/2019 09:30:00 AM EST [facility] ([facility]) Name Value Range Interpretation Code Description Data Guillermina rce(s) Supporting Document(s) Glucose, Fasting 241 mg/dL 70-100 Above high normal [facility] ([facility]) Blood Urea Nitrogen 29 mg/dL 7-18 Above high normal [facility] ([facility]) Creatinine For GFR 1.74 mg/dL 0.55-1.30 Above high normal [facility] ([facility]) Sodium Level 143 meq/L 136-145 Normal (applies to non-numeric res ults) [facility] ([facility]) Potassium Serum 4.2 meq/L 3.5-5.1 Normal (applies to non-numeric results) [facility] ([facility]) Glomerular Filtration Rate 31.1 Below low normal [facility] ([facility]) <content>Units are mL/min/1.73 m2</content>
<content></content>
<content>Chronic Kidney Disease Staging per NKF:</content>
<content></content>
<content>Stage I & II GFR >=60 Normal to Mildly Decreased</content>
<content>Stage III GFR 30- 59 Moderately Decreased</content>
<content>Stage IV GFR 15-29 Severely Decreased</content>
<content>Stage V GFR <15 Very Little GFR Left</content>
<content>ESRD GFR <15 on HOUSE SERVANT</content>
<content></content> Anion Gap 5 meq/L 8-16 Below low normal [facility] ( [facility]) Carbon Dioxide Level 31 meq/L 21-32 Normal (applies to non-num ruby results) [facility] ([facility]) Chloride Level 107 meq/L 98-107 Normal (applies to non-numeric r esults) [facility] Calcium Level 8.7 mg/dL 8.8-10.2 Below low normal [facility] ([facility]) Alkaline Phosphatase 104 U/L 45-117 Normal (applies to non-num ruby results) [facility] ([facility]) Ast/Sgot 22 U/L 7-37 Normal (applies to non-numeric resul ts) [facility] ([facility]) Alt/SGPT 14 U/L 12-78 Normal (applies to non-numeric resul ts) [facility] ([facility]) Albumin 2.5 GM/DL 3.2-5.2 Below low normal [facility] Total Protein 6.1 GM/DL 6.4-8.2 Below low normal [facility] ([facility]) Bilirubin,Total 0.5 mg/dL 0.2-1.0 Normal (applies to non-numeric results) [facility] ([facility]) Albumin/Globulin Ratio 0.69 1.00-1.93 Below low normal [facility] ([facility]) ID Date Data Source [id number] 11/29/2019 06:22:00 PM EST [facility] ([facility]) Name Value Range Interpretation Code Description Data Guillermina rce(s) Supporting Document(s) Laboratory test finding (navigational concept) 41.0 % 3 8.0-51.0 Normal (applies to non-numeric results) [facility] ([facility]) Laboratory test finding (navigational concept) 153 mg/dL 7 0-105 Above high normal [facility] ([facility]) Laboratory test finding (navigational concept) 4.8 mg/dL 4 .5-5.3 Normal (applies to non-numeric results) [facility] ([facility]) Laboratory test finding (navigational concept) 3.1 meq/L 3 .5-5.1 Below low normal [facility] ([facility]) Laboratory test finding (navigational concept) 151 meq/L 1 36-145 Above high normal [facility] ([facility]) Laboratory test finding (navigational concept) 28.0 MM/L 2 3.0-27.0 Above high normal [facility] ([facility]) Laboratory test finding (navigational concept) 26 mg/dL 8 -26 Normal (applies to non-numeric results) [facility] ([facility]) Laboratory test finding (navigational concept) 109 meq/L 9 8-109 Normal (applies to non-numeric results) [facility] ([facility]) Laboratory test finding (navigational concept) 1.5 mg/dL 0 .6-1.3 Above high normal [facility] ([facility]) ID Date Data Source [id number] 11/29/2019 06:21:00 PM EST [facility] ([facility]) Name Value Range Interpretation Code Description Data Guillermina rce(s) Supporting Document(s) Respiratory Panel Laboratory test result [facility] ([facility]) This respiratory PCR panel detects [...] co mpleted Patient has never smoked [facility] ([facility]) Smoking 09/04/2020 12:00:00 AM EDT Patient has never smoked co mpleted Patient has never smoked [facility] ([facility]) Vital Signs ID Date Data Source UNK Name Value Range Interpretation Code Description Data Source(s) [place] body weight 100 [lb_av] 100 [lb_av] [facility] Oxygen saturation in Arterial blood by Pulse oximetry 98 % 98 % [facility] ([facility]) Body temperature 98.8 [degF] 98.8 [degF] [facility] ([facility]) Respiratory rate 26 /min 26 /min [facility] ( [facility]) Heart rate 77 /min 77 /min [facility] ([facility]) Body mass index (BMI) [Ratio] 47.7 kg/m2 47.7 k g/m2 [facility] ([facility]) Body weight 240.00 [lb_av] 240.00 [lb_av] [facility] ([facility]) Body height 59.50 [in_i] 59.50 [in_i] [facility] ([facility]) 4'11.50" Diastolic blood pressure 86 mm[Hg] 86 mm[Hg] [facility] ([facility]) Systolic blood pressure 128 mm[Hg] 128 mm[Hg] [facility] Body mass index (BMI) [Ratio] 47.8 kg/m2 47.8 k g/m2 [facility] Body height 60 [in_i] 60 [in_i] [facility]) 5'0" Body weight 245.00 [lb_av] 245.00 [lb_av] [facility] ([facility], [facility]) Body temperature 98.0 [degF] 98.0 [degF] [facility], [facility]) Oxygen saturation in Arterial blood by Pulse oximetry 98 % 98 % [facility] ([facility], [facility]) Respiratory rate 14 /min 14 /min [facility] ( [facility], [facility]) Heart rate 66 /min 66 /min [facility], [facility]) Diastolic blood pressure 73 mm[Hg] 73 mm[Hg] [facility], [facility]) Systolic blood pressure 118 mm[Hg] 118 mm[Hg] M [facility] ([facility], [facility]) Body mass index (BMI) [Ratio] 47.8 kg/m2 47.8 k g/m2 [facility] ([facility], [facility]) Body height 60 [in_i] 60 [in_i] [facility] ([facility], [facility]) 5'0" Body weight 245.00 [lb_av] 245.00 [lb_av] [facility] T ([facility], [facility]) Body temperature 98.1 [degF] 98.1 [degF] [facility] ([facility], [facility]) Oxygen saturation in Arterial blood by Pulse oximetry 97 % 97 % [facility] ([facility], [facility]) Respiratory rate 12 /min 12 /min [facility] ( [facility], [facility]) Heart rate 65 /min 65 /min [facility] ([facility], [facility]) Diastolic blood pressure 74 mm[Hg] 74 mm[Hg] [facility] ([facility], [facility]) Systolic blood pressure 113 mm[Hg] 113 mm[Hg] [facility], [facility]) Body mass index (BMI) [Ratio] 47.8 kg/m2 47.8 k g/m2 [facility] ([facility], [facility]) Body height 60 [in_i] 60 [in_i] [facility], [facility]) 5'0" Body weight 245.00 [lb_av] 245.00 [lb_av] [facility] T ([facility], [facility]) Body temperature 97.8 [degF] 97.8 [degF] [facility] ([facility], [facility]) Oxygen saturation in Arterial blood by Pulse oximetry 95 % 95 % [facility] ([facility], [facility]) Respiratory rate 16 /min 16 /min [facility] ( [facility], [facility]) Heart rate 88 /min 88 /min [facility] ([facility], [facility]) Diastolic blood pressure 67 mm[Hg] 67 mm[Hg] [facility] ([facility], [facility]) Systolic blood pressure 143 mm[Hg] 143 mm[Hg] [facility], [facility]) Body mass index (BMI) [Ratio] 48.8 kg/m2 48.8 k g/m2 [facility] ([facility], [facility]) Body height 60 [in_i] 60 [in_i] [facility] ([facility], [facility]) 5'0" Body weight 250.00 [lb_av] 250.00 [lb_av] [facility] ([facility], [facility]) Body temperature 98.2 [degF] 98.2 [degF] [facility] ([facility], [facility]) Oxygen saturation in Arterial blood by Pulse oximetry 98 % 98 % [facility] ([facility], [facility]) Respiratory rate 68 /min 68 /min [facility] ( [facility], [facility]) Heart rate 65 /min 65 /min [facility] ([facility], [facility]) Diastolic blood pressure 70 mm[Hg] 70 mm[Hg] [facility] ([facility], [facility]) Systolic blood pressure 110 mm[Hg] 110 mm[Hg] [facility] ([facility], [facility]) Body mass index (BMI) [Ratio] 46.9 kg/m2 46.9 k g/m2 [facility] ([facility], [facility]) Body height 60 [in_i] 60 [in_i] [facility], [facility]) 5'0" Body weight 240.00 [lb_av] 240.00 [lb_av] MED[facility] T ([facility], [facility]) Body temperature 98.0 [degF] 98.0 [degF] [facility] ([facility], [facility]) Oxygen saturation in Arterial blood by Pulse oximetry 97 % 97 % [facility] ([facility], [facility]) Respiratory rate 16 /min 16 /min [facility] ( [facility], [facility]) Heart rate 59 /min 59 /min [facility] ([facility], [facility]) Diastolic blood pressure 64 mm[Hg] 64 mm[Hg] [facility] ([facility], [facility]) Systolic blood pressure 99 mm[Hg] 99 mm[Hg] M EDENT ([facility], [facility]) [place] body weight 100 [lb_av] 100 [lb_av] MED[facility] T ([facility]) Oxygen saturation in Arterial blood by Pulse oximetry 98 % 98 % [facility] Body temperature 97.1 [degF] 97.1 [degF] [facility] ([facility]) Respiratory rate 20 /min 20 /min [facility] ( [facility]) Heart rate 64 /min 64 /min [facility] ([facility]) Body mass index (BMI) [Ratio] 50.3 kg/m2 50.3 k g/m2 [facility] ([facility]) Body weight 253.12 [lb_av] 253.12 [lb_av] [facility] T ([facility]) Body height 59.50 [in_i] 59.50 [in_i] [facility] ([facility]) 4'11.50" Diastolic blood pressure 72 mm[Hg] 72 mm[Hg] [facility] ([facility]) Systolic blood pressure 128 mm[Hg] 128 mm[Hg] M EDENT ([facility]) Oxygen saturation in Arterial blood by Pulse oximetry 98 % 98 % [facility] Body temperature 97.5 [degF] 97.5 [degF] [facility] ([facility]) Respiratory rate 18 /min 18 /min [facility] ( [facility]) Heart rate 75 /min 75 /min [facility] ([facility]) Body mass index (BMI) [Ratio] 48.7 kg/m2 48.7 k g/m2 [facility] ([facility]) Body weight 245.25 [lb_av] 245.25 [lb_av] [facility] T ([facility]) Body height 59.50 [in_i] 59.50 [in_i] [facility] ([facility]) " Diastolic blood pressure 78 mm[Hg] 78 mm[Hg] [facility] ([facility]) Systolic blood pressure 138 mm[Hg] 138 mm[Hg] M EDENT ([facility]) Oxygen saturation in Arterial blood by Pulse oximetry 99 % 99 % [facility] ([facility]) Body temperature 97.2 [degF] 97.2 [degF] [facility] ([facility]) Respiratory rate 20 /min 20 /min [facility] ( [facility]) Heart rate 74 /min 74 /min [facility] ([facility]) Body mass index (BMI) [Ratio] 50.5 kg/m2 50.5 k g/m2 [facility] ([facility]) Body weight 254.25 [lb_av] 254.25 [lb_av] [facility] T ([facility]) Body height 59.50 [in_i] 59.50 [in_i] [facility] ([facility]) " Diastolic blood pressure 78 mm[Hg] 78 mm[Hg] [facility] ([facility]) Systolic blood pressure 138 mm[Hg] 138 mm[Hg] M EDENT ([facility])
[2021-01-20 11:49] LABS: ALBUMIN 2.1 GM/DL (3.2-5.2); ALT/SGPT 9 U/L (12-78); BILIRUBIN,DIRECT 0.2 MG/DL (0.0-0.2); BILIRUBIN,TOTAL 0.5 MG/DL (0.2-1.0); BLOOD UREA NITROGEN 22 MG/DL (7-18); CALCIUM LEVEL 8.7 MG/DL (8.8-10.2); CARBON DIOXIDE LEVEL 33 MEQ/L (21-32); CHLORIDE LEVEL 106 MEQ/L (98-107); CK-MB VALUE MASS < 1.0 NG/ML (<3.6); CPK CREATINE PHOSPHOKINASE 33 U/L (26-192); CREATININE FOR GFR 2.04 MG/DL (0.55-1.30); GLOMERULAR FILTRATION RATE 25.8 (>45); GLUCOSE, FASTING 167 MG/DL (70-100); MB/CK RELATIVE INDEX 3.03 (< OR =4); POTASSIUM SERUM 4.3 MEQ/L (3.5-5.1); SODIUM LEVEL 144 MEQ/L (136-145); TOTAL PROTEIN 5.9 GM/DL (6.4-8.2); TROPONIN I < 0.02 NG/ML (< 0.10)
[2021-01-20] MEDS ORDERED: cefTRIAXone SOD 1 GM in D5W MINI-BAG PLUS 50 ML IV ONE (13:00)
[2021-01-20] MEDS ORDERED: NS 500 ML IV ONE (13:00)
[2021-01-20] MEDS ORDERED: METO100T5 PO (13:46)
[2021-01-20] MEDS ORDERED: ONDA4TAB6 PO (13:46)
[2021-01-20] MEDS ORDERED: MACR100C43 PO (13:46)
[2021-01-20] MEDS ORDERED: ACETAMINOPHEN TAB 650MG DOSE (2X325MG) PO PRN (15:30)
[2021-01-20] MEDS ORDERED: MAALOX 30 ML SUSP *UDC PO PRN (15:30)
[2021-01-20] MEDS ORDERED: MOM 30ML SUSPENSION UDC PO PRN (15:30)
--- OUTSIDE RECORDS SUMMARY | 2021-01-20 15:40 | CCD ---
Author Author [facility] Organization [facility] Address Unknown Phone Unavailable Care Team Providers Care Race Car Driver Name Role Phone Deysi LARA MD Unavailable [...] Unavailable LARA, L REX ROTHMAN Unavailable Unavailable LRAA, L REX ROTHMAN Unavailable Unavailable LARA, L [...] K MAX PA Unavailable Unavailable Britton, Jyotsna WARDROBE ASSISTANT Unavailable Unavailable Britton, Jyotsna WARDROBE ASSISTANT Unavailable Unavailable Britton, Jyotsna WARDROBE ASSISTANT Unavailable Unavailable Britton, Jyotsna WARDROBE ASSISTANT Unavailable Unavailable Britton, Jyotsna WARDROBE ASSISTANT Unavailable Unavailable Britton, Jyotsna WARDROBE ASSISTANT Unavailable Unavailable Britton, Jyotsna WARDROBE ASSISTANT Unavailable Unavailable Britton, Jyotsna WARDROBE ASSISTANT Unavailable Unavailable Britton, Jyotsna WARDROBE ASSISTANT Unavailable Unavailable Britton, Jyotsna WARDROBE ASSISTANT Unavailable Unavailable Britton, Jyotsna WARDROBE ASSISTANT Unavailable Unavailable Ureña, Gardenia Maile PA Unavailable [...] Unavailable O'rita, A Karmen PA Unavailable Unavailable O'riat, A Karmen PA Unavailable Unavailable O', A [...] is protected by Article 27-F of the [facility] Public Health law. If you continue you may have access to information: Regarding HIV / AIDS; Provided by facilities licensed or operated by the [facility] Office of Mental Health; or Provided by the [facility] Office for People With Developmental Disabilities. If such information is present, then the following [facility] mandated warning applies: This information has been [...] law may result in a fine or skilled nursing sentence or both. A general authorization for the release of medical or other information is NOT sufficient authorization for further disc losure. Family History Family Member Name Family Member Gender Family Member Status Date o f Status Description Data Source(s) Unknown Unknown Problem [facility] ([facility] Unknown Female Problem [facility] ([facility]) Unknown Female Encounters Encounter Providers Location Date Indications Data Source(s ) Outpatient Attender: Shay DISLA [facility] 09/26/2020 01:00:00 PM EDT [facility] ([facility]) Outpatient Attender: KARMEN Gil Prim [facility]ilie 09/06/2020 01:00:00 PM EDT [facility] ([facility]) Outpatient Attender: Maile Gil Prim emilie 09/04/2020 05:45:00 PM EDT [facility] ([facility]) Outpatient Attender: Jyotsna Khan Gil [facility] 08/23/2020 02:45:00 PM EDT [facility] ([facility]) Outpatient Attender: MAX Gil Primary 08/10/2020 12:25:00 PM EDT [facility] ([facility]) Outpatient Attender: Shay DISLA [facility] 06/20/2020 03:40:00 PM EDT [facility] ([facility]) Outpatient Attender: Shay DISLA [facility] 05/22/2020 01:40:00 PM EDT [facility] ([facility]) Outpatient Referrer: REX LARA MD 03/15/2020 02:21:00 PM EDT [facility] Outpatient Attender: Karmen DISLA [facility] 03/01/2020 10:20:00 AM EDT [facility] ([facility]) Outpatient Attender: Shay DISLA [facility] 01/22/2020 12:00:00 PM EST [facility] ([facility]) Outpatient Referrer: REX LARA MD 12/14/2019 10:12:00 AM EST [facility] Outpatient Referrer: REX LARA MD 12/08/2019 11:25:00 AM EST [facility] Outpatient Referrer: REX LARA MD 12/06/2019 04:40:00 PM EST [facility] Immunizations Vaccine Date Status Description Data Source(s) New in 2011. IIV4 09/26/2020 01:33:00 PM EDT completed [facility] ([facility]) Medications Medication Brand Name Start Date Product Form Dose Route Admi nistrative Instructions Pharmacy Instructions Status Indications Reaction Description Data Source(s) Ondansetron 4 MG Disintegrating Oral Tablet Ondansetron 01/13/2021 12:00:00 AM EST SUBLINGUAL active [facility] ([facility]) 4 mg 01/13/2021 12:00:00 AM EST tablet,disintegrating [...] WEDNESDAY, AND WEDNESDAY SOLD: 12/24/2020 [facility] NITROFURANTOIN, MACROCRYSTALS 25 MG / Ni trofurantoin, Monohydrate 75 MG Oral Capsule Nitrofurantoin Monohydrate/Macrocrystals 12/23/2020 12:00:00 AM EST active [facility] ([facility]) 100 mg 12/23/2020 12:00:00 AM EST capsule [...] MG 09/06 12:00:00 AM EDT completed [facility] ([facility]) Medication administered onsite NITROFURANTOIN, MACROCRYSTALS 25 MG / Ni trofurantoin, Monohydrate 75 MG Oral Capsule Nitrofurantoin Monohyd Macro 09/06/2020 12:00:00 AM EDT ORAL active [facility] ([facility]) Rocephin/Ceftriaxone Sodium Injection Per 250 MG 09/05 12:00:00 AM EDT completed [facility] ([facility]) Medication administered onsite Rocephin/Ceftriaxone Sodium Injection Per 250 MG 09/04 12:00:00 AM EDT completed [facility] ([facility]) Medication administered onsite Cephalexin 500 MG Oral Capsule Cephalexin 08/23/2020 12:00:00 AM EDT ORAL completed [facility] ([facility]) Cephalexin 250 MG Oral Capsule Cephalexin 08/23/2020 12:00:00 AM EDT ORAL completed [facility] ([facility]) 250 mg 08/23/2020 12:00:00 AM EDT capsule [...] 100 MG Oral Capsule [DOK] Dok 08/15/2020 12:00 :00 AM EDT ORAL active [facility] ([facility]) 20 mg 08/15/2020 12:00:00 AM EDT tablet [...] 08/10/2020 12:00:00 AM EDT ORAL completed [facility] ([facility]) Cephalexin 500 MG Oral Capsule CEPHALEXIN 08/10/2020 [...] AM EDT ORAL completed [facility] ([facility]) 100 mg 06/20/2020 12:00:00 AM EDT capsule 20 TAKE ONE CAPSULE BY MOUTH EVERY 12 HOURS UNTIL GONE TAKE ONE CAPSULE BY MOUTH EVERY 12 HOURS UNTIL GONE SO LD: 06/21/2020 [facility] NITROFURANTOIN, MACROCRYSTALS 25 MG / Ni trofurantoin, Monohydrate 75 MG Oral Capsule [Macrobid] Macrobid 06/20/2020 12:00:00 AM EDT ORAL completed [facility] ([facility]) 100 mg 06/10/2020 12:00:00 AM EDT capsule [...] TWICE A DAY SOLD: 06/11/2020 [facility] 5 mg 06/10/2020 12:00:00 AM EDT tablet extended release 24hr 30 TAKE ONE TABLET BY MOUTH EVERY DAY TAKE ONE TABLET BY MOUTH EVERY DAY SOLD: 08/10/2020 [facility] 100 mg [...] THROUGH WEDNESDAY SOLD: 08/19/2020 [facility] Calcitriol 0.78667 MG Oral Capsule 0.25 mcg CALCITRIOL 05/23/2020 [...] 03/05 12:00:00 AM EDT ORAL completed [facility] ([facility]) 750 mg 03/05/2020 12:00:00 AM EDT tablet 7 TAKE ONE TABLET BY MOUTH EVERY DAY FOR 7 DAYS TAKE ONE TABLET BY MOUTH EVERY DAY FOR 7 DAYS SOLD: 03/06/2020 [facility] Cephalexin 500 MG Oral Capsule Cephalexin 03/03/2020 12:00:00 AM EDT ORAL completed [facility] ([facility]) NITROFURANTOIN, MACROCRYSTALS 100 MG Oral Capsule Nitrofuran toin Macrocrystal 03/01/2020 12:00:00 AM EDT ORAL completed [facility] ([facility]) 100 mg 03/01/2020 12:00:00 AM EDT capsule [...] EVERY DAY SOLD: 03/02/2020 [facility] Calcitriol 0.51030 MG Oral Capsule 0.25 mcg CALCITRIOL 01/23/2020 [...] EVERY DAY SOLD: 04/01/2020 [facility] Calcitriol 0.94240 MG Oral Capsule 0.25 mcg CALCITRIOL 01/23/2020 [...] TO TAKING NIACIN AT BEDTIME SOLD: 12/16/2019 [facility] 20 mg 12/15/2019 12:00:00 AM EST tablet 30 TAKE ONE TABLET BY MOUTH AT BEDTIME TAKE ONE TABLET BY MOUTH AT BEDTIME SOLD: 12/16/2019 [facility] 100 mg 12/15/2019 12:00:00 AM EST capsule 60 TAKE TWO CAPSULES BY MOUTH EVERY DAY TAKE TWO CAPSULES BY MOUTH EVERY DAY SOLD: 12/16/2019 [facility] 40 mg 12/15/2019 12:00:00 AM EST tablet 90 TAKE TWO TABLETS BY MOUTH EVERY MORNING AND 1 IN THE AFTERNOON TAKE TWO TABLETS BY MOUTH EVERY MORNING AND 1 IN THE AFTERNOON SOLD: 12/16/2019 [facility] 40 mg 12/04/2019 12:00:00 AM EST capsule 30 TAKE ONE CAPSULE BY MOUTH EVERY DAY TAKE ONE CAPSULE BY MOUTH EVERY DAY SOLD: 12/09/2019 [facility] 5 mg 12/04/2019 12:00:00 AM EST tablet extended release 24hr 30 TAKE ONE TABLET BY MOUTH EVERY DAY TAKE ONE TABLET BY MOUTH EVERY DAY SOLD: 03/19/2020 [facility] 5 mg 12/04/2019 12:00:00 AM EST tablet extended release 24hr 30 TAKE ONE TABLET BY MOUTH EVERY DAY TAKE ONE TABLET BY MOUTH EVERY DAY SOLD: 04/17/2020 [facility] 300 mg 12/04/2019 12:00:00 AM EST tablet 30 TAKE ONE TABLET BY MOUTH EVERY DAY TAKE ONE TABLET BY MOUTH EVERY DAY SOLD: 05/20/2020 [facility] 5 mg 12/04/2019 12:00:00 AM EST [...] TABLET BY MOUTH EVERY DAY SOLD: 02/18/2020 [facility] 40 mg 12/04/2019 12:00:00 AM EST [...] completed [facility] ([facility]) doxycycline hyclate 100 MG Oral Tablet Doxycycline Hyclate 1 12/13/2018 12:00:00 AM EST ORAL completed [facility] ([facility]) 150 mg 10/09/2019 12:00:00 AM EST tablet [...] TABLET BY MOUTH EVERY DAY SOLD: 11/26/2019 [facility] Insurance Providers Payer name Policy type / Coverage type Policy ID Covered constitution party ID Covered constitution party's relationship to balbuena Policy [place] Plan Information [facility] MCRHMO [id number] SP [id number] SP [id number] MEDICARE COMPLETE [id number] SP [id number] [facility] MCRHMO [id number] SP [id number] MEDICARE [id number] SP [id number] MEDICARE COMPLETE-UHC O [id number] S [id number] MEDICARE COMPLETE [id number] SP [id number] MEDICARE COMPLETE [id number] SP [id number] MEDICARE C [id number] S [id number] MEDICAID M [id number] S [id number] [employer] MCDHMO [id number] SP [id number] MEDICARE [id number] SP [id number] [id number] MEDICAID [id number] SP [id number] [place] [id number] Self [id number] [place] [id number] Self [id number] [place] [id number] Self [id number] MEDICAID [id number] S [id number] [facility] MEDICARE DIVISION [id number] S [id number] [place] [id number] S [id number] [id number] Self [id number] [place] [id number] Self [id number] [place] [id number] S [id number] MEDICAID [id number] S [id number] [place] [id number] S [id number] [place] [id number] S [id number] [place] [id number] S [id number] [place] [id number] S [id number] SELF PAY UNAVAILABLE [place] BLE [place] [id number] Self [id number] [place] [id number] Self [id number] [place] [id number] Self [id number] MEDICA[place] [id number] S [id number] [place] [id number] S [id number] [place] [id number] Self [id number] [place] [id number] Self [id number] [place] [id number] Self [id number] [place] [id number] Self [id number] [place] [id number] Self [id number] MEDICARE [id number] SP [id number] A MEDICAID [id number] SP [id number] MEDICARE [id number] SP [id number] [place] [id number] Self [id number] [place] [id number] Self [id number] [place] [id number] Self [id number] [place] [id number] Self [id number] [place] [id number] S [id number] [place] [id number] Self [id number] [place] [id number] Self [id number] [place] [id number] Self [id number] [place] [id number] Self [id number] [place] [id number] Self [id number] [place] Primary [id number] Self [id number] MEDICARE C [id number] S [id number] [id number] Self [id number] [place] [id number] Self [id number] MEDICAID M [id number] Self [id number] MEDICARE A [id number] Self [id number] [place] [id number] Self [id number] [place] Primary [id number] Self [id number] [employer] C [id number] S [id number] [place] [id number] Self [id number] [place] Primary [id number] Self [id number] Medicare Medicare Primary [id number] Self [id number] Medicare Medicare Primary [id number] Self 05 [id number] [place] [id number] Self [id number] [place] [id number] Self [id number] [place] [id number] Self [id number] [place] Primary [id number] Self [id number] [place] Primary Self UHC [place] MEDICARE COMPLETE G [id number] Self [id number] Medicaid [facility] Part B Self [place] Primary Self SELF PAY UNAVAILABLE SP UNAVAILA BLE MEDICAID-O/P [id number] MEDICARE -O/P [id number] 18 [id number] Surgeries/Procedures Procedure Description Date Indications Data Source(s) Therapeutic, Prophylactic Or Diagnostic Injection Subq/Im 09/06/2020 12:00:00 AM EDT [facility] ([facility]) Therapeutic, Prophylactic Or Diagnostic Injection Subq/Im 09/05/2020 12:00:00 AM EDT [facility] ([facility]) Therapeutic, Prophylactic Or Diagnostic Injection Subq/Im 09/04/2020 12:00:00 AM EDT [facility] ([facility]) Results ID Date Data Source [id number] 01/20/2021 10:51:00 AM EST [facility] ([facility]) Name Value Range Interpretation Code Description Data Guillermina rce(s) Supporting Document(s) Glucose, Fasting 167 mg/dL 70-100 Above high normal M [facility] ([facility]) Glomerular Filtration Rate 25.8 Below low normal [facility] ([facility]) <content>Units are mL/min/1.73 m2</content>
<content></content>
<content>Chronic Kidney Disease Staging per NKF:</content>
<content></content>
<content>Stage I & II GFR >=60 Normal to Mildly Decreased</content>
<content>Stage III GFR 30- 59 Moderately Decreased</content>
<content>Stage IV GFR 15-29 Severely Decreased</content>
<content>Stage V GFR <15 Very Little GFR Left</content>
<content>ESRD GFR <15 on TEACHER CCLC</content>
<content></content> Blood Urea Nitrogen 22 mg/dL 7-18 Above high normal [facility] ([facility]) Creatinine For GFR 2.04 mg/dL 0.55-1.30 Above high normal [facility] ([facility]) Potassium Serum 4.3 meq/L 3.5-5.1 Normal (applies to non-numeric results) [facility] ([facility]) Sodium Level 144 meq/L 136-145 Normal (applies to non-numeric res ults) [facility] ([facility]) Carbon Dioxide Level 33 meq/L 21-32 Above high normal [facility] ([facility]) Anion Gap 5 meq/L 8-16 Below low normal [facility] ( [facility]) Chloride Level 106 meq/L 98-107 Normal (applies to non-numeric r esults) [facility] ([facility]) Calcium Level 8.7 mg/dL 8.8-10.2 Below low normal [facility] T ([facility]) ID Date Data Source [id number] 01/20/2021 10:51:00 AM EST [facility] ([facility]) Name Value Range Interpretation Code Description Data Guillermina rce(s) Supporting Document(s) Ast/Sgot 18 U/L 7-37 Normal (applies to non-numeric resul ts) [facility] ([facility]) Alkaline Phosphatase 102 U/L 45-117 Normal (applies to non-num ruby results) [facility] ([facility]) Bilirubin,Total 0.5 mg/dL 0.2-1.0 Normal (applies to non-numeric results) [facility] ([facility]) Alt/SGPT 9 U/L 12-78 Below low normal [facility] ( [facility]) Albumin 2.1 GM/DL 3.2-5.2 Below low normal [facility] ( [facility]) Bilirubin,Direct 0.2 mg/dL 0.0-0.2 Normal (applies to non-numeric results) [facility] ([facility]) Total Protein 5.9 GM/DL 6.4-8.2 Below low normal [facility] T ([facility]) Albumin/Globulin Ratio 0.6 1.2-2.2 Below low normal [facility] ([facility]) ID Date Data Source [id number] 01/20/2021 10:51:00 AM EST [facility] ([facility]) Name Value Range Interpretation Code Description Data Guillermina rce(s) Supporting Document(s) CPK Creatine Phosphokinase 33 U/L 26-192 Anat l (applies to non-numeric results) [facility] ([facility]) MB/CK Relative Index 3.03 Normal (applies to non-num ruby results) [facility] ([facility]) <content>DIAGNOSIS CRITERIA</content>
<content>MMB ng/ml Relative Index (RI)</content>
<content>NON-AMI < or = 5 N/A</content>
<content>ORTIZ ZONE > 5 < or = 4</content>
<content>AMI > 5 > 4</content>
<content></content> CK-MB Value Mass Laboratory test result Normal ( applies to non-numeric results) [facility] ([facility]) Troponin I Laboratory test result Normal (applies to non-n umeric results) [facility] ([facility]) <content>Troponin I Reference Interval f or Siemens [place] LOCI:</content>
<content></content>
<content>99th Percentile= 0.00-0.045 ng/ml</content>
<content></content>
<content>Risk Stratification:</content>
<content><= 0.10 ng/ml Decreased Risk for Adverse Clinical</content>
<content>Events.</content>
<content>0.10-1.50 ng/ml Increased Risk for Adverse Clinical</content>
<content>Events. Evaluation of additional</content>
<content>criterion and/or repeat testing in 2-6</content>
<content>hours is suggested to rule out myocardial</content>
<content>damage.</content>
<content>>= 1.50 ng/ml Indicative of Myocardial Injury.</content>
<content></content> ID Date Data Source [id number] 01/20/2021 10:51:00 AM EST [facility] ([facility]) Name Value Range Interpretation Code Description Data Guillermina rce(s) Supporting Document(s) White Blood Count 6.4 10 4.0-10.0 Normal (applies to non-numeri c results) [facility] ([facility]) Hemoglobin 10.7 g/dL 12.0-15.5 Below low normal [facility] ( [facility]) Hematocrit 35.0 % 36.0-47.0 Below low normal [facility] ( [facility]) Red Blood Count 3.39 10 4.00-5.40 Below low normal [facility] ([facility]) Mean Corpuscular HGB Conc 30.6 g/dL 32.0-36.5 Below low normal [facility] ([facility]) Mean Corpuscular Hemoglobin 31.6 pg 27.0-33.0 Norm al (applies to non-numeric results) [facility] ([facility]) Mean Corpuscular Volume 103.2 fl 80.0-96.0 Above high normal [facility] ([facility]) Neutrophils % 50.5 % 36.0-66.0 Normal (applies to non-numeric re sults) [facility] ([facility]) Platelet Count, Automated 193 10 150-450 Normal (applies to non-numeric results) [facility] ([facility]) Red Cell Distribution Width 14.5 % 11.5-14.5 Norm al (applies to non-numeric results) [facility] ([facility]) Lymph % 35.0 % 24.0-44.0 Normal (applies to non-numeric resul ts) [facility] ([facility]) Eos % 6.6 % 0.0-3.0 Above high normal [facility] ([facility]) [place] % 7.0 % 2.0-8.0 Normal (applies to non-numeric resul ts) [facility] ([facility]) Baso % 0.6 % 0.0-1.0 Normal (applies to non-numeric resul ts) [facility] ([facility]) Immature Granulocyte % 0.3 % 0-3.0 Normal (applies to non-n umeric results) [facility] ([facility]) Neutrophils # 3.2 10 1.5-8.5 Normal (applies to non-numeric re sults) [facility] ([facility]) Nucleated Red Blood Cell % 0.0 % 0-0 Normal (applies to n on-numeric results) [facility] ([facility]) Lymph # 2.2 10 1.5-5.0 Normal (applies to non-numeric resul ts) [facility] ([facility]) Eos # 0.4 10 0.0-0.5 Normal (applies to non-numeric resul ts) [facility] ([facility]) [place] # 0.5 10 0.0-0.8 Normal (applies to non-numeric resul ts) [facility] ([facility]) Baso # 0.0 10 0.0-0.2 Normal (applies to non-numeric resul ts) [facility] ([facility]) ID Date Data Source [id number] 01/20/2021 10:44:00 AM EST [facility] ([facility]) Name Value Range Interpretation Code Description Data Guillermina rce(s) Supporting Document(s) Appearance, Urine RFX Laboratory test result Above high no rmal [facility] ([facility]) Color, Urine RFX Laboratory test result Normal ( applies to non-numeric results) [facility] ([facility]) PH,Urine RFX 7.0 units 5.0-9.0 Normal (applies to non-numeric res ults) [facility]) Specific Hope Ur Auto RFX 1.012 1.002-1.035 Nor mal (applies to non-numeric results) [facility] ([facility]) Glucose, Urine (Ua) Auto RFX Laboratory test result Normal (applies to non- numeric results) [facility] ([facility]) Protein, Urine Auto RFX Laboratory test result Above high normal [facility] ([facility]) Ketone, Urine Auto RFX Laboratory test result No rmal (applies to non-numeric results) [facility] ([facility]) Urobilinogen, Urine Auto RFX 2.0 mg/dL 0.0-2.0 Above high normal [facility] ([facility]) Bilirubin, Urine Auto RFX Laboratory test result Normal (applies to non- numeric results) [facility] ([facility]) Nitrite, Urine Auto RFX Laboratory test result Above high normal [facility] ([facility]) Blood, Urine Blood RFX Laboratory test result Above high n ormal [facility] ([facility]) Leukocyte Esterase Ur Auto RFX Laboratory test result Abov e high normal [facility] ([facility]) WBC, Urine Auto RFX Laboratory test result 0-3 Above high norm al [facility] ([facility]) RBC, Urine Auto RFX 39 /HPF 0-3 Above high normal [facility] ([facility]) Bacteria, Urine Auto RFX Laboratory test result Above high normal [facility] ([facility]) Squam Epithelial Cell Ur Aurfx 1 /HPF 0-6 N ormal (applies to non-numeric results) [facility] ([facility]) Yeast Like Cell Urine Auto RFX Laboratory test result Abov e high normal [facility] ([facility]) Hyaline Cast, Urine Auto RFX 4 /LPF 0-1 Normal (appl ies to non-numeric results) [facility] ([facility]) ID Date Data Source [id number] 11/15/2020 09:55:00 AM EST [facility] Name Value Range Interpretation Code Description Data Guillermina rce(s) Supporting Document(s) SARS-CoV-2 (COVID 19) [facility] This lab was ordered by [facility] a nd reported by [facility]. ID Date Data Source [id number] 11/14/2020 09:00:00 AM EST [facility] Name Value Range Interpretation Code Description Data Guillermina rce(s) Supporting Document(s) SARS coronavirus 2 RNA [facility] This lab was ordered by [facility] and reported by [facility]. ID Date Data Source [id number] 11/13/2020 12:00:00 AM EST [facility] Name Value Range Interpretation Code Description Data Guillermina rce(s) Supporting Document(s) SARS-CoV2 Rapid Antigen [facility] This lab was ordered by [facility] and reported by [facility]. ID Date Data Source [id number] 11/10/2020 02:04:00 PM EST [facility] Name Value Range Interpretation Code Description Data Guillermina rce(s) Supporting Document(s) SARS coronavirus 2 RNA [facility] This lab was ordered by [facility] and reported by [facility]. ID Date Data Source [id number] 10/31/2020 01:38:00 PM EST [facility] ([facility]) Name Value Range Interpretation Code Description Data Guillermina rce(s) Supporting Document(s) Platelets [#/volume] in Blood by Estimate Laboratory test result Normal (applies to non-numeric results) [facility] ([facility]) ID Date Data Source [id number] 10/31/2020 01:38:00 PM EST [facility] ([facility]) Name Value Range Interpretation Code Description Data Guillermina rce(s) Supporting Document(s) Bands 37 % Above high normal [facility] ([facility]) Neutrophils 44 % 28-66 Normal (applies to non-numeric resu lts) [facility] ([facility]) Monocytes 1 % 0-5 Normal (applies to non-numeric resul ts) [facility] ([facility]) Metamyelocytes 8 % 0-0 Above high normal [facility] ([facility]) Lymphocytes 7 % 16-44 Below low normal [facility] ([facility]) Myelocytes 3 % 0-0 Above high normal [facility] ([facility]) Macrocytosis Laboratory test result Normal (applies to non -numeric results) [facility] ([facility]) Toxic Granulation Laboratory test result Normal (applies to non-numeric results) [facility] ([facility]) Laboratory test finding (navigational concept) Laboratory test r esult Normal (applies to non-numeric results) [facility] ([facility]) ID Date Data Source [id number] 10/31/2020 01:38:00 PM EST [facility] ([facility]) Name Value Range Interpretation Code Description Data Guillermina rce(s) Supporting Document(s) White Blood Count 6.5 10 4.0-10.0 Normal (applies to non-numeri c results) [facility] ([facility]) Hemoglobin 12.7 g/dL 12.0-15.5 Normal (applies to non-numeric resul ts) [facility] ([facility]) Red Blood Count 3.79 10 4.00-5.40 Below low normal [facility] ([facility]) Hematocrit 39.2 % 36.0-47.0 Normal (applies to non-numeric resul ts) [facility] ([facility]) Mean Corpuscular Volume 103.4 fl 80.0-96.0 Above high normal [facility] ([facility]) Red Cell Distribution Width 14.9 % 11.5-14.5 Above high normal [facility] Mean Corpuscular Hemoglobin 33.5 pg 27.0-33.0 Above high normal [facility] ([facility]) Mean Corpuscular HGB Conc 32.4 g/dL 32.0-36.5 Normal (applies to non-numeric results) [facility] ([facility]) Nucleated Red Blood Cell % 0.0 % 0-0 Normal (applies to n on-numeric results) [facility] ([facility]) Platelet Count, Automated 139 10 150-450 Below low normal [facility] ID Date Data Source [id number] 10/31/2020 01:38:00 PM EST [facility] ([facility]) Name Value Range Interpretation Code Description Data Guillermina rce(s) Supporting Document(s) C reactive protein [Mass/volume] in Serum or Plasma by High sensitivity method 28.40 mg/dL 0.00-0.30 Above high normal [facility] Lactate [Mass/volume] in Serum or Plasma 4.4 mmol/L 0.4-2.0 Above upper panic limits [facility] Y/N query for Sepsis Lactate Rule: Y ID Date Data Source [id number] 10/31/2020 01:38:00 PM EST [facility] ([facility]) Name Value Range Interpretation Code Description Data Guillermina rce(s) Supporting Document(s) Blood Urea Nitrogen 40 mg/dL 7-18 Above high normal [facility] ([facility]) Glucose, Fasting 83 mg/dL 70-100 Normal (applies to non-numeric results) [facility] Creatinine For GFR 1.77 mg/dL 0.55-1.30 Above high normal [facility] ([facility]) Sodium Level 146 meq/L 136-145 Above high normal [facility] T ([facility]) Glomerular Filtration Rate 30.4 Below low normal [facility] ([facility]) <content>Units are mL/min/1.73 m2</content>
<content></content>
<content>Chronic Kidney Disease Staging per NKF:</content>
<content></content>
<content>Stage I & II GFR >=60 Normal to Mildly Decreased</content>
<content>Stage III GFR 30- 59 Moderately Decreased</content>
<content>Stage IV GFR 15-29 Severely Decreased</content>
<content>Stage V GFR <15 Very Little GFR Left</content>
<content>ESRD GFR <15 on TEACHER CCLC</content>
<content></content> Potassium Serum 4.1 meq/L 3.5-5.1 Normal (applies to non-numeric results) [facility] ([facility]) Anion Gap 9 meq/L 8-16 Normal (applies to non-numeric resul ts) [facility] ([facility]) Chloride Level 110 meq/L 98-107 Above high normal [facility] ([facility]) Carbon Dioxide Level 27 meq/L 21-32 Normal (applies to non-num ruby results) [facility] ([facility]) Calcium Level 9.3 mg/dL 8.8-10.2 Normal (applies to non-numeric re sults) [facility] ([facility]) ID Date Data Source [id number] 10/31/2020 01:38:00 PM EST [facility] ([facility]) Name Value Range Interpretation Code Description Data Guillermina rce(s) Supporting Document(s) Ast/Sgot 54 U/L 7-37 Above high normal [facility] ([facility]) Alt/SGPT 34 U/L 12-78 Normal (applies to non-numeric resul ts) [facility] ([facility]) Alkaline Phosphatase 100 U/L 45-117 Normal (applies to non-num ruby results) [facility] ([facility]) Bilirubin,Total 1.1 mg/dL 0.2-1.0 Above high normal [facility] ([facility]) Bilirubin,Direct 0.5 mg/dL 0.0-0.2 Above high normal [facility] ([facility]) Total Protein 6.0 GM/DL 6.4-8.2 Below low normal [facility] ([facility]) Albumin 2.4 GM/DL 3.2-5.2 Below low normal [facility] Albumin/Globulin Ratio 0.7 1.2-2.2 Below low normal [facility] ([facility]) ID Date Data Source [id number] 10/31/2020 01:38:00 PM EST [facility] ([facility]) Name Value Range Interpretation Code Description Data Guillermina rce(s) Supporting Document(s) CK-MB Value Mass 2.6 ng/mL Normal (applies to non-numeric results) [facility] ([facility]) MB/CK Relative Index 0.82 Normal (applies to non-num ruby results) [facility] ([facility]) <content>DIAGNOSIS CRITERIA</content>
<content>MMB ng/ml Relative Index (RI)</content>
<content>NON-AMI < or = 5 N/A</content>
<content>ORTIZ ZONE > 5 < or = 4</content>
<content>AMI > 5 > 4</content>
<content></content> CPK Creatine Phosphokinase 316 U/L 26-192 Above high normal [facility] ([facility]) Troponin I Laboratory test result Normal (applies to non-n umeric results) [facility] ([facility]) <content>Troponin I Reference Interval f or Siemens [place] LOCI:</content>
<content></content>
<content>99th Percentile= 0.00-0.045 ng/ml</content>
<content></content>
<content>Risk Stratification:</content>
<content><= 0.10 ng/ml Decreased Risk for Adverse Clinical</content>
<content>Events.</content>
<content>0.10-1.50 ng/ml Increased Risk for Adverse Clinical</content>
<content>Events. Evaluation of additional</content>
<content>criterion and/or repeat testing in 2-6</content>
<content>hours is suggested to rule out myocardial</content>
<content>damage.</content>
<content>>= 1.50 ng/ml Indicative of Myocardial Injury.</content>
<content></content> ID Date Data Source [id number] 10/31/2020 01:38:00 PM EST [facility] ([facility]) Name Value Range Interpretation Code Description Data Guillermina rce(s) Supporting Document(s) aPTT in Platelet poor plasma by Coagulation assay 25.2 s 24.2-38.5 Normal (applies to non-numeric results) [facility] ([facility]) ID Date Data Source [id number] 10/31/2020 01:38:00 PM EST [facility] ([facility]) Name Value Range Interpretation Code Description Data Guillermina rce(s) Supporting Document(s) Inr 1.58 Normal (applies to non-numeric resul ts) [facility] ([facility]) THERAPUTIC HUMAN INR VALUES INDICATIONS NORMAL RANGES PROPHYLAXIS/TREATMENT OF: VENOUS THROMBOSIS 2.0-3.0 PULMONARY EMBOLISM 2.0-3.0 PREVENTION OF SYSTEMIC EMBOLISM FROM: TISSUE HEART VALVES 2.0-3.0 ACUTE MYOCARDIAL INFARCTION 2.0-3.0 VALVULAR HEART DISEASE 2.0-3.0 ATRIAL FIBRILLATION 2.0-3.0 MECHANICAL VALVES(HIGH RISK) 2.5-3.5 RECURRENT MYOCARDIAL INFARCTION 2.5-3.5 Prothrombin Time 19.2 s 12.5-14.3 Above high normal [facility] ID Date Data Source [id number] 10/31/2020 01:38:00 PM EST [facility] ([facility]) Name Value Range Interpretation Code Description Data Guillermina rce(s) Supporting Document(s) Venous PH 7.338 units 7.330-7.430 Normal (applies to non-numeric res ults) [facility] ([facility]) Venous Partial Pressure Co2 53.2 mmHg 38.0-50.0 Above high normal [facility] ([facility]) Venous Partial Pressure O2 79.7 mmHg 30.0-50.0 Above high normal [facility] ([facility]) Venous Total Co2 29.6 meq/L 24.0-28.0 Above high normal [facility] ([facility]) Venous Hco3 27.9 meq/L 23.0-27.0 Above high normal [facility] ([facility]) Venous Standard Hco3 25.5 meq/L Normal (applies to non-num ruby results) [facility] ([facility]) Venous Base Excess 1.2 Normal (applies to non-numer ic results) [facility] ([facility]) Venous O2 Saturation 95.2 % 60.0-80.0 Above high normal [facility] ([facility]) ID Date Data Source [id number] 10/31/2020 12:40:00 PM EST [facility] Name Value Range Interpretation Code Description Data Guillermina rce(s) Supporting Document(s) SARS coronavirus 2 RNA [Presence] in Res piratory specimen by NENA with probe detection [facility] This lab was ordered by [facility] a nd reported by [facility]. ID Date Data Source [id number] 09/04/2020 07:51:00 PM EDT [facility] ([facility]) Name Value Range Interpretation Code Description Data Guillermina rce(s) Supporting Document(s) Bacteria identified in Urine by Culture Laboratory test result [facility] ([facility]) <content>FULL REPORT IN LAB NOTES (eCW a [...] <=1 S</content>
<content></content> ID Date Data Source [id number] 08/23/2020 12:45:00 PM EDT [facility] ([facility]) Name Value Range Interpretation Code Description Data Guillermina rce(s) Supporting Document(s) Bacteria identified in Urine by Culture Laboratory test result [facility] ([facility]) <content>FULL REPORT IN LAB NOTES (eCW a [...] FOR ESBL</content>
<content></content> ID Date Data Source [id number] 08/10/2020 01:19:00 PM EDT [facility] ([facility]) Name Value Range Interpretation Code Description Data Guillermina rce(s) Supporting Document(s) Bacteria identified in Urine by Culture Laboratory test result [facility] ([facility]) <content>FULL REPORT IN LAB NOTES (eCW a [...] FOR ESBL</content>
<content></content> ID Date Data Source [id number] 06/20/2020 04:14:00 PM EDT [facility] ([facility]) Name Value Range Interpretation Code Description Data Guillermina rce(s) Supporting Document(s) Inhouse Nitrite Laboratory test result [facility] ([facility]) Inhouse Leukocytes Laboratory test result [facility] ([facility]) Inhouse Protein Laboratory test result [facility] ([facility]) Inhouse PH 5.0 [facility] ([facility]) Inhouse Urobilinogen 0.2 [facility] ([facility]) Inhouse Ketones Laboratory test result [facility] ([facility]) Inhouse Specific Hope 1.010 [facility] ([facility]) Inhouse Hemoglobin Laboratory test result [facility] ([facility]) Inhouse Bilirubin Laboratory test result [facility] ([facility]) Inhouse Glucose Laboratory test result [facility] ([facility]) ID Date Data Source [id number] 03/06/2020 04:00:00 PM EDT [facility] Name Value Range Interpretation Code Description Data Guillermina rce(s) Supporting Document(s) SARS CORONAVIRUS 2 RNA [facility] This lab was ordered by [facility] and reported by [facility]. ID Date Data Source [id number] 03/06/2020 04:00:00 PM EDT [facility] ([facility]) Name Value Range Interpretation Code Description Data Guillermina rce(s) Supporting Document(s) Coronavirus 2019 Nasopharygeal Laboratory test result [facility] ([facility]) Testing was performed using the shannon(R) SARS-CoV-2 test. This test was developed and its performance characteristics determined by [employer]. This test has not been FDA cleared [...] is terminated or revoked sooner. Performed at: RN - [facility] [address] [id number] Infrastructure Software Engineer: Shobha Green MD, Phone: [phone] Not Detected ID Date Data Source [id number] 03/01/2020 10:36:00 AM EDT [facility] ([facility]) Name Value Range Interpretation Code Description Data Guillermina rce(s) Supporting Document(s) Inhouse Leukocytes Laboratory test result [facility] ([facility]) Inhouse Nitrite Laboratory test result [facility] ([facility]) Inhouse Hemoglobin Laboratory test result [facility] ([facility]) Inhouse Protein Laboratory test result [facility] ([facility]) Inhouse PH 6.0 [facility] ([facility]) Inhouse Urobilinogen 0.2 [facility] ([facility]) Inhouse Bilirubin Laboratory test result [facility] ([facility]) Inhouse Ketones Laboratory test result [facility] ([facility]) Inhouse Specific [place] 1.010 [facility] ([facility]) Inhouse Glucose Laboratory test result [facility] ([facility]) ID Date Data Source [id number] 03/01/2020 10:30:00 AM EDT [facility] ([facility]) Name Value Range Interpretation Code Description Data Guillermina rce(s) Supporting Document(s) Bacteria identified in Urine by Culture Laboratory test result Normal (applies to non-numeric results) [facility] ([facility]) <content>FULL REPORT IN LAB NOTES (eCW a [...] FOR ESBL</content>
<content></content> ID Date Data Source [id number] 02/09/2020 12:18:00 PM EDT [facility] ([facility]) Name Value Range Interpretation Code Description Data Guillermina rce(s) Supporting Document(s) Bacteria identified in Urine by Culture Laboratory test result Normal (applies to non-numeric results) [facility] ([facility]) FULL REPORT IN LAB NOTES (eCW and [facility] ). SPECIMEN APPEARS CONTAMINATED ID Date Data Source [id number] 01/11/2020 08:45:00 PM EST [facility] ([facility]) Name Value Range Interpretation Code Description Data Guillermina rce(s) Supporting Document(s) Thyrotropin [Units/volume] in Serum or Plasma 1.090 uIU/ML 0. 358-3.740 Normal (applies to non-numeric results) [facility] ([facility]) Natriuretic peptide.B prohormone N-Terminal [Mass/volu me] in Serum or Plasma 1672 pg/mL Above high normal [facility] ID Date Data Source [id number] 01/11/2020 08:45:00 PM EST [facility] ([facility]) Name Value Range Interpretation Code Description Data Guillermina rce(s) Supporting Document(s) Blood Urea Nitrogen 27 mg/dL 7-18 Above high normal [facility] ([facility]) Creatinine For GFR 1.81 mg/dL 0.55-1.30 Above high normal [facility] ([facility]) Glucose, Fasting 111 mg/dL 70-100 Above high normal [facility] ([facility]) Potassium Serum 3.8 meq/L 3.5-5.1 Normal (applies to non-numeric results) [facility] ([facility]) Sodium Level 141 meq/L 136-145 Normal (applies to non-numeric res ults) [facility] ([facility]) Glomerular Filtration Rate 29.7 Below low normal [facility] ([facility]) <content>Units are mL/min/1.73 m2</content>
<content></content>
<content>Chronic Kidney Disease Staging per NKF:</content>
<content></content>
<content>Stage I & II GFR >=60 Normal to Mildly Decreased</content>
<content>Stage III GFR 30- 59 Moderately Decreased</content>
<content>Stage IV GFR 15-29 Severely Decreased</content>
<content>Stage V GFR <15 Very Little GFR Left</content>
<content>ESRD GFR <15 on TEACHER CCLC</content>
<content></content> Anion Gap 8 meq/L 8-16 Normal (applies to non-numeric resul ts) [facility] ([facility]) Carbon Dioxide Level 29 meq/L 21-32 Normal (applies to non-num ruby results) [facility] ([facility]) Chloride Level 104 meq/L 98-107 Normal (applies to non-numeric r esults) [facility] ([facility]) Calcium Level 8.4 mg/dL 8.8-10.2 Below low normal [facility] ([facility]) ID Date Data Source [id number] 01/11/2020 08:45:00 PM EST [facility] ([facility]) Name Value Range Interpretation Code Description Data Guillermina rce(s) Supporting Document(s) Ast/Sgot 32 U/L 7-37 Normal (applies to non-numeric resul ts) [facility] ([facility]) Alkaline Phosphatase 154 U/L 45-117 Above high normal [facility] ([facility]) Alt/SGPT 23 U/L 12-78 Normal (applies to non-numeric resul ts) [facility] ([facility]) Bilirubin,Total 1.9 mg/dL 0.2-1.0 Above high normal [facility] ([facility]) Total Protein 6.2 GM/DL 6.4-8.2 Below low normal [facility] ([facility]) Albumin 2.1 GM/DL 3.2-5.2 Below low normal [facility] ( [facility]) Bilirubin,Direct 0.7 mg/dL 0.0-0.2 Above high normal [facility] ([facility]) Albumin/Globulin Ratio 0.51 1.00-1.93 Below low normal [facility] ([facility]) ID Date Data Source [id number] 01/11/2020 08:45:00 PM EST [facility] ([facility]) Name Value Range Interpretation Code Description Data Guillermina rce(s) Supporting Document(s) Lactate [Mass/volume] in Serum or Plasma 1.8 mmol/L 0.4-2.0 Normal (applies to non-numeric results) [facility] ([facility]) Y/N query for Sepsis Lactate Rule: Y ID Date Data Source [id number] 01/11/2020 08:45:00 PM EST [facility] ([facility]) Name Value Range Interpretation Code Description Data Guillermina rce(s) Supporting Document(s) Red Blood Count 3.59 10 4.00-5.40 Below low normal [facility] ([facility]) White Blood Count 13.2 10 4.0-10.0 Above high normal [facility] ([facility]) Hemoglobin 11.6 g/dL 12.0-15.5 Below low normal [facility]) Mean Corpuscular Hemoglobin 32.3 pg 27.0-33.0 Norm al (applies to non-numeric results) [facility] ([facility]) Hematocrit 36.2 % 36.0-47.0 Normal (applies to non-numeric resul ts) [facility] ([facility]) Mean Corpuscular Volume 100.8 fl 80.0-96.0 Above high normal [facility] Mean Corpuscular HGB Conc 32.0 g/dL 32.0-36.5 Normal (applies to non-numeric results) [facility] ([facility]) Platelet Count, Automated 187 10 150-450 Normal (applies to non-numeric results) [facility] Red Cell Distribution Width 15.2 % 11.5-14.5 Above high normal [facility] ([facility]) [place] % 4.2 % 0.0-5.0 Normal (applies to non-numeric resul ts) [facility] ([facility]) Lymph % 13.2 % 24.0-44.0 Below low normal [facility] ( [facility]) Neutrophils % 80.4 % 36.0-66.0 Above high normal [facility] ([facility]) Eos % 0.3 % 0.0-3.0 Normal (applies to non-numeric resul ts) [facility] ([facility]) Immature Granulocyte % 1.7 % 0-3.0 Normal (applies to non-n umeric results) [facility] ([facility]) Baso % 0.2 % 0.0-1.0 Normal (applies to non-numeric resul ts) [facility] ([facility]) Nucleated Red Blood Cell % 0.0 % 0-0 Normal (applies to n on-numeric results) [facility] ([facility]) Lymph # 1.7 10 1.5-5.0 Normal (applies to non-numeric resul ts) [facility] ([facility]) [place] # 0.6 10 0.0-0.8 Normal (applies to non-numeric resul ts) [facility] ([facility]) Neutrophils # 10.6 10 1.5-8.5 Above high normal [facility] ([facility]) Baso # 0.0 10 0.0-0.2 Normal (applies to non-numeric resul ts) [facility] ([facility]) Eos # 0.0 10 0.0-0.5 Normal (applies to non-numeric resul ts) [facility] ([facility]) ID Date Data Source [id number] 12/30/2019 09:30:00 AM EST [facility] ([facility]) Name Value Range Interpretation Code Description Data Guillermina rce(s) Supporting Document(s) Red Blood Count 3.45 10 4.00-5.40 Below low normal [facility] ([facility]) White Blood Count 5.7 10 4.0-10.0 Normal (applies to non-numeri c results) [facility] ([facility]) Hemoglobin 11.1 g/dL 12.0-15.5 Below low normal [facility] ( [facility]) Mean Corpuscular Hemoglobin 32.2 pg 27.0-33.0 Norm al (applies to non-numeric results) [facility] ([facility]) Hematocrit 36.3 % 36.0-47.0 Normal (applies to non-numeric resul ts) [facility] ([facility]) Mean Corpuscular Volume 105.2 fl 80.0-96.0 Above high normal [facility] ([facility]) Red Cell Distribution Width 15.7 % 11.5-14.5 Above high normal [facility] Platelet Count, Automated 123 10 150-450 Below low normal [facility] Mean Corpuscular HGB Conc 30.6 g/dL 32.0-36.5 Below low normal [facility] ([facility]) Lymph % 34.0 % 24.0-44.0 Normal (applies to non-numeric resul ts) [facility] ([facility]) [place] % 6.9 % 0.0-5.0 Above high normal [facility] ([facility]) Neutrophils % 36.2 % 36.0-66.0 Normal (applies to non-numeric re sults) [facility] ([facility]) Immature Granulocyte % 0.2 % 0-3.0 Normal (applies to non-n umeric results) [facility] ([facility]) Baso % 0.5 % 0.0-1.0 Normal (applies to non-numeric resul ts) [facility] ([facility]) Eos % 22.2 % 0.0-3.0 Above high normal [facility] ([facility]) Scan Verified machine results Lymph # 1.9 10 1.5-5.0 Normal (applies to non-numeric resul ts) [facility] ([facility]) Nucleated Red Blood Cell % 0.0 % 0-0 Normal (applies to n on-numeric results) [facility] ([facility]) Neutrophils # 2.1 10 1.5-8.5 Normal (applies to non-numeric re sults) [facility] ([facility]) [place] # 0.4 10 0.0-0.8 Normal (applies to non-numeric resul ts) [facility] ([facility]) Eos # 1.3 10 0.0-0.5 Above high normal [facility] ([facility]) Baso # 0.0 10 0.0-0.2 Normal (applies to non-numeric resul ts) [facility] ([facility]) ID Date Data Source [id number] 12/30/2019 09:30:00 AM EST [facility] ([employer] [facility]) Name Value Range Interpretation Code Description Data Guillermina rce(s) Supporting Document(s) Thyroid Stimulating Hormone 5.130 uIU/ML 0.358-3.740 Above high anat l [facility] ([facility]) Free T4 0.93 ng/dL 0.76-1.46 Normal (applies to non-numeric resul ts) [facility] ([facility]) ID Date Data Source [id number] 12/30/2019 09:30:00 AM EST [facility] ([employer] [facility]) Name Value Range Interpretation Code Description Data Guillermina rce(s) Supporting Document(s) Triglycerides Level 74 mg/dL Normal (applies to non-nume kalpana results) [facility] ([facility]) HDL Cholesterol 41 mg/dL Normal (applies to non-numeric results) [facility] ([facility]) LDL Cholesterol 83 mg/dL Normal (applies to non-numeric results) [facility] ([facility]) Cholesterol Level 139 mg/dL Normal (applies to non-numeri c results) [facility] ([facility]) Non-HDL-C 98 mg/dL Normal (applies to non-numeric resul ts) [facility] ([facility]) Cholesterol Risk Ratio 3.390 Normal (applies to non-n umeric results) [facility] ([facility]) ID Date Data Source [id number] 12/30/2019 09:30:00 AM EST [facility] ([facility]) Name Value Range Interpretation Code Description Data Guillermina rce(s) Supporting Document(s) Hemoglobin A1c 6.5 % Normal (applies to non-numeric r esults) [facility] ([facility]) REFERENCE RANGES: 4.5-5.6% NORMAL 5.7-6.4% SUGGESTS IMPAIRED GLUCOSE META BOLISM >= 6.5% ABNORMAL Estimated Average Glucose 140 mg/dL 60-110 Above high normal [facility] ([facility]) ID Date Data Source [id number] 12/30/2019 09:30:00 AM EST [facility]) Name Value Range Interpretation Code Description Data Guillermina rce(s) Supporting Document(s) Glucose, Fasting 241 mg/dL 70-100 Above high normal [facility] ([facility]) Blood Urea Nitrogen 29 mg/dL 7-18 Above high normal [facility] ([facility]) Creatinine For GFR 1.74 mg/dL 0.55-1.30 Above high normal [facility] ([facility]) Sodium Level 143 meq/L 136-145 Normal (applies to non-numeric res ults) [facility] ([facility]) Potassium Serum 4.2 meq/L 3.5-5.1 Normal (applies to non-numeric results) [facility] ([facility]) Glomerular Filtration Rate 31.1 Below low normal [facility] ([facility]) <content>Units are mL/min/1.73 m2</content>
<content></content>
<content>Chronic Kidney Disease Staging per NKF:</content>
<content></content>
<content>Stage I & II GFR >=60 Normal to Mildly Decreased</content>
<content>Stage III GFR 30- 59 Moderately Decreased</content>
<content>Stage IV GFR 15-29 Severely Decreased</content>
<content>Stage V GFR <15 Very Little GFR Left</content>
<content>ESRD GFR <15 on TEACHER CCLC</content>
<content></content> Anion Gap 5 meq/L 8-16 Below low normal [facility] ( [facility]) Carbon Dioxide Level 31 meq/L 21-32 Normal (applies to non-num ruby results) [facility] ([facility]) Chloride Level 107 meq/L 98-107 Normal (applies to non-numeric r esults) [facility] ([facility]) Calcium Level 8.7 mg/dL 8.8-10.2 Below low normal [facility] ([facility]) Alkaline Phosphatase 104 U/L 45-117 Normal (applies to non-num ruby results) [facility] ([facility]) Ast/Sgot 22 U/L 7-37 Normal (applies to non-numeric resul ts) [facility] ([facility]) Alt/SGPT 14 U/L 12-78 Normal (applies to non-numeric resul ts) [facility] ([facility]) Albumin 2.5 GM/DL 3.2-5.2 Below low normal [facility] Total Protein 6.1 GM/DL 6.4-8.2 Below low normal [facility] ([facility]) Bilirubin,Total 0.5 mg/dL 0.2-1.0 Normal (applies to non-numeric results) [facility] ([facility]) Albumin/Globulin Ratio 0.69 1.00-1.93 Below low normal [facility] ID Date Data Source [id number] 11/29/2019 06:22:00 PM EST [facility] ([facility]) Name Value Range Interpretation Code Description Data Guillermina rce(s) Supporting Document(s) Laboratory test finding (navigational concept) 41.0 % 3 8.0-51.0 Normal (applies to non-numeric results) [facility] ([facility]) Laboratory test finding (navigational concept) 153 mg/dL 7 0-105 Above high normal [facility] Laboratory test finding (navigational concept) 4.8 mg/dL 4 .5-5.3 Normal (applies to non-numeric results) [facility] ([facility]) Laboratory test finding (navigational concept) 3.1 meq/L 3 .5-5.1 Below low normal [facility] Laboratory test finding (navigational concept) 151 meq/L 1 36-145 Above high normal [facility] ([facility]) Laboratory test finding (navigational concept) 28.0 MM/L 2 3.0-27.0 Above high normal [facility] ([facility]) Laboratory test finding (navigational concept) 26 mg/dL 8 -26 Normal (applies to non-numeric results) [facility] ([facility]) Laboratory test finding (navigational concept) 109 meq/L 9 8-109 Normal (applies to non-numeric results) [facility] ([facility]) Laboratory test finding (navigational concept) 1.5 mg/dL 0 .6-1.3 Above high normal [facility] ([facility]) ID Date Data Source [id number] 11/29/2019 06:21:00 PM EST [facility] ([facility]) Name Value Range Interpretation Code Description Data Guillermina rce(s) Supporting Document(s) Respiratory Panel Laboratory test result [facility] ([facility]) This respiratory PCR panel detects Influ dong [...] co mpleted Patient has never smoked [facility] ([facility]) Smoking 09/04/2020 12:00:00 AM EDT Patient has never smoked co mpleted Patient has never smoked [facility] ([facility]) Vital Signs ID Date Data Source [id number] Name Value Range Interpretation Code Description Data Source(s) Rice body weight 100 [lb_av] 100 [lb_av] [facility] ([facility]) Oxygen saturation in Arterial blood by Pulse oximetry 98 % 98 % [facility] ([facility]) Body temperature 98.8 [degF] 98.8 [degF] [facility] ([facility]) Respiratory rate 26 /min 26 /min [facility] ( [facility]) Heart rate 77 /min 77 /min [facility] ([facility]) Body mass index (BMI) [Ratio] 47.7 kg/m2 47.7 k g/m2 [facility] ([facility]) Body weight 240.00 [lb_av] 240.00 [lb_av] [facility] ([facility]) Body height 59.50 [in_i] 59.50 [in_i] [facility] ([facility]) 4'11.50" Diastolic blood pressure 86 mm[Hg] 86 mm[Hg] [facility] ([facility]) Systolic blood pressure 128 mm[Hg] 128 mm[Hg] M [facility] ([facility]) Body mass index (BMI) [Ratio] 47.8 kg/m2 47.8 k g/m2 [facility] ([facility]) Body height 60 [in_i] 60 [in_i] [facility] ([facility]) 5'0" Body weight 245.00 [lb_av] 245.00 [lb_av] [facility] T ([facility]) Body temperature 98.0 [degF] 98.0 [degF] [facility] ([facility]) Oxygen saturation in Arterial blood by Pulse oximetry 98 % 98 % [facility] ([facility]) Respiratory rate 14 /min 14 /min [facility] ( [facility]) Heart rate 66 /min 66 /min [facility] ([facility]) Diastolic blood pressure 73 mm[Hg] 73 mm[Hg] [facility] ([facility]) Systolic blood pressure 118 mm[Hg] 118 mm[Hg] M [facility] ([facility]) Body mass index (BMI) [Ratio] 47.8 kg/m2 47.8 k g/m2 [facility] ([facility]) Body height 60 [in_i] 60 [in_i] [facility] ([facility]) 5'0" Body weight 245.00 [lb_av] 245.00 [lb_av] [facility] T ([facility]) Body temperature 98.1 [degF] 98.1 [degF] [facility] ([facility]) Oxygen saturation in Arterial blood by Pulse oximetry 97 % 97 % [facility] ([facility]) Respiratory rate 12 /min 12 /min [facility] ( [facility]) Heart rate 65 /min 65 /min [facility] ([facility]) Diastolic blood pressure 74 mm[Hg] 74 mm[Hg] [facility] ([facility]) Systolic blood pressure 113 mm[Hg] 113 mm[Hg] M [facility] ([facility]) Body mass index (BMI) [Ratio] 47.8 kg/m2 47.8 k g/m2 [facility] ([facility]) Body height 60 [in_i] 60 [in_i] [facility] ([facility]) 5'0" Body weight 245.00 [lb_av] 245.00 [lb_av] [facility] T ([facility]) Body temperature 97.8 [degF] 97.8 [degF] [facility] ([facility]) Oxygen saturation in Arterial blood by Pulse oximetry 95 % 95 % [facility] ([facility]) Respiratory rate 16 /min 16 /min [facility] ( [facility]) Heart rate 88 /min 88 /min [facility] ([facility]) Diastolic blood pressure 67 mm[Hg] 67 mm[Hg] [facility] ([facility]) Systolic blood pressure 143 mm[Hg] 143 mm[Hg] [facility] Body mass index (BMI) [Ratio] 48.8 kg/m2 48.8 k g/m2 [facility] ([facility]) Body height 60 [in_i] 60 [in_i] [facility] ([facility]) 5'0" Body weight 250.00 [lb_av] 250.00 [lb_av] [facility] T ([facility]) Body temperature 98.2 [degF] 98.2 [degF] [facility] ([facility]) Oxygen saturation in Arterial blood by Pulse oximetry 98 % 98 % [facility] ([facility]) Respiratory rate 68 /min 68 /min [facility] ( [facility]) Heart rate 65 /min 65 /min [facility] ([facility]) Diastolic blood pressure 70 mm[Hg] 70 mm[Hg] [facility] ([facility]) Systolic blood pressure 110 mm[Hg] 110 mm[Hg] [facility] ([facility]) Body mass index (BMI) [Ratio] 46.9 kg/m2 46.9 k g/m2 [facility] ([facility]) Body height 60 [in_i] 60 [in_i] [facility] ([facility]) 5'0" Body weight 240.00 [lb_av] 240.00 [lb_av] [facility] T ([facility]) Body temperature 98.0 [degF] 98.0 [degF] [facility] ([facility]) Oxygen saturation in Arterial blood by Pulse oximetry 97 % 97 % [facility] ([facility]) Respiratory rate 16 /min 16 /min [facility] ( [facility]) Heart rate 59 /min 59 /min [facility] ([facility]) Diastolic blood pressure 64 mm[Hg] 64 mm[Hg] [facility] ([facility]) Systolic blood pressure 99 mm[Hg] 99 mm[Hg] [facility]) [place] body weight 100 [lb_av] 100 [lb_av] [facility] ([facility]) Oxygen saturation in Arterial blood by Pulse oximetry 98 % 98 % [facility] ([facility]) Body temperature 97.1 [degF] 97.1 [degF] [facility] ([facility]) Respiratory rate 20 /min 20 /min [facility] ( [facility]) Heart rate 64 /min 64 /min [facility] ([facility]) Body mass index (BMI) [Ratio] 50.3 kg/m2 50.3 k g/m2 [facility] ([facility]) Body weight 253.12 [lb_av] 253.12 [lb_av] [facility] ([facility]) Body height 59.50 [in_i] 59.50 [in_i] [facility] ([facility]) 4.50" Diastolic blood pressure 72 mm[Hg] 72 mm[Hg] [facility] ([facility]) Systolic blood pressure 128 mm[Hg] 128 mm[Hg] M [facility] ([facility]) Oxygen saturation in Arterial blood by Pulse oximetry 98 % 98 % [facility] ([facility]) Body temperature 97.5 [degF] 97.5 [degF] [facility] ([facility]) Respiratory rate 18 /min 18 /min [facility] ( [facility]) Heart rate 75 /min 75 /min [facility] ([facility]) Body mass index (BMI) [Ratio] 48.7 kg/m2 48.7 k g/m2 [facility] ([facility]) Body weight 245.25 [lb_av] 245.25 [lb_av] [facility] ([facility]) Body height 59.50 [in_i] 59.50 [in_i] [facility] ([facility]) 4.50" Diastolic blood pressure 78 mm[Hg] 78 mm[Hg] [facility] ([facility]) Systolic blood pressure 138 mm[Hg] 138 mm[Hg] M [facility] ([facility]) Oxygen saturation in Arterial blood by Pulse oximetry 99 % 99 % [facility] ([facility]) Body temperature 97.2 [degF] 97.2 [degF] [facility] ([facility]) Respiratory rate 20 /min 20 /min [facility] ( [facility]) Heart rate 74 /min 74 /min [facility] ([facility]) Body mass index (BMI) [Ratio] 50.5 kg/m2 50.5 k g/m2 [facility] ([facility]) Body weight 254.25 [lb_av] 254.25 [lb_av] [facility] ([facility]) Body height 59.50 [in_i] 59.50 [in_i] [facility] ([facility]) 4'1150" Diastolic blood pressure 78 mm[Hg] 78 mm[Hg] [facility] ([facility]) Systolic blood pressure 138 mm[Hg] 138 mm[Hg] [facility] ([facility])
--- NOTE | 2021-01-20 15:50 | ECGEPIP ---
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
[2021-01-20 17:04] VITALS: BP 153/69
--- NOTE | 2021-01-20 18:01 | HPEPDOC ---
[facility] Medical History & Physical Date of Admission Jan 20, 2021 Date of Service: Jan 20, 2021 History and Physical CHIEF COMPLAINT: fall, AMS HISTORY OF PRESENT ILLNESS: 70 yo F with a hx of HTN, CKD 3, diastolic CHF, CARLA, DM2 with neuropathy, venous insufficiency, hx of uterine cancer, rest as below, was brought to [facility] by EMS after sustaining two falls at home this morning. She reports the first fall to be mechanica, after tripping over a rug, and the other to be related to significant dizziness. She appears to be alert and oriented to person and place, but is forgetful of the details of recent events. She ambulat es with a walker and lives alone in [place], while her daughter lives in [place]. Patient states that she is still dizzy, but denies chest pain, SOB, palpitations, fevers, cough, n/v/d. She states that she has not had much to drink or eat in the past day, and endorses that she spent approximately 30 minutes on the floor before calling the ambulance. On arrival to the ER, her vitals were HR 69. RR 16. BP 125/64. SpO 98%. T 97.0. Pertinent labs Hgbh 10.7. Hct 35.0. PLT 193. NA 144. K 4.3. Cr 2.04 (baseline 1.26 - 1.38). UA cloudy, nitrite +, LE 3+, with puyuria (TNTC) and RBCs (39) CT head and C spine did not show acute fracture. CXR showed mild cardiomegaly but otherwise acute pathology She was given a dose of ceftriaxone. 500 cc bolus NS Patient will be admitted to hospitalist service for workup of AMS/encephalopathy secondary to UTI as well as evaluation for dizziness and PT evaluation. PAST MEDICAL HISTORY: 1. Hypertension 2. Chronic kidney disease Stage 3 3. Diastolic CHF 4. Obstructive sleep apnea 5. Type 2 diabetes mellitus with peripheral neuropathy 6. Chronic back pain due to degenerative disk disease and spinal stenosis. 7. Morbid obesity with BMI of 48. 8. Venous insufficiency. 9. Depression. 10. Hypercholesterolemia. 11. History of gout and hyperuricemia. PAST SURGICAL HISTORY: 1. History of uterine cancer, status post ANNIE/BSO. 2. Status post appendectomy. 3. Tonsillectomy. 4. Right elbow surgery due to fracture. SOCIAL HISTORY: Patient denies smoking Patient denies etoh use Patient denies illicit drug use FAMILY HISTORY: Mother: unspecified hx of heart disease Father: unspecified hx of cancer ALLERGIES: Please see below. REVIEW OF SYSTEMS: 10 point ROS was completed, relevant findings noted in HPI HOME MEDICATIONS: Please see below. PHYSICAL EXAMINATION: VITAL SIGNS: please see below General: appears diaphoretic, disheveled HEENT: PERRLA, EOMI, sclerae clear Neck: supple, normal ROM, no JVD Respiratory: reduced inspiratory effort, no wheeze, no rales, no crackles CVS: RRR, normal S1, S2, no murmurs Abdo: soft, no masses, no hepatosplenomegaly, BS+, no rebound tenderness Extremities: s MSK: 2 cm in diameter heel ulceration, < 5 mm in depth, with overlying slough. No granulation tissue seen. Pulses faint. Neuro: no focal neuro deficits, moving all 4 extremities, CN2-12 intact. Strength 5/5 in all 4 extremities. No nystagmus. Psych: calm, cooperative, AAO x 3 LABORATORY DATA: See below. IMAGING: CT head wo contrast (01/20/21) No acute intracranial abnormality. No evidence of skull fracture.. CT c spine (01/20/21) Degenerative spondylosis changes. No fracture or other acute bony abnormality.. CXR (01/20/21) Mild cardiomegaly. Otherwise no acute disease. MICROBIOLOGY: Please see below. ASSESSMENT: Mrs. Muir is a 70 year old female with diabetes mellitus2, hypertension, diastolic CHF, and morbid obesity who comes to the hospital s/p fall, dizziness and AMS. She was found to have evidence for UI PLAN: Urinary Tract Infection , does not meet SIRS, sepsis criteria. qSOFA score 1 - UA positive for nitrites, LE, pyuiria and blood - s/p ceftriaxone in ER - f/u urine culture. Blood culture were sent as well Fall 2/2 debility and vertigo - CT and C spine showed not fractures or bleed - reported signfiicant leg weakness on walking, uses walker to ambulate - Reviewed ECHO from 11/01/20: LVEF 60-65%, minimally calcified aortic valce. Nomal TV. Mild calcified MV. Grade 2 diastolic dysfunction. - will obtain MRI and MRA of the brain - check carotid US - orthostats q8h - PT/OT - check b12, folate, vit D. L heel ulceration vs wet gangrene - suspect osteomyelitis - obtain L foot xray - may require foot MRI Bilatera LE swelling and erythema, L > R - obtained bilateral venous duplex to r/o DVT. Hx of afib with RVR? - not on AC - monitor on telemetry - monitor electrolytes - spoke to daughter Claire at [phone], she states that her mother discontinued the eliquis on her own. - patient denies taking eliquis DM2 - ISS, FSBS AC and HS - hypoglycemic precautions DEB on CKD III - Cr baseline 1.25 - 1.4 - Cr 2.04 - suspect pre-renal etiology as patient reports reduce PO intake - check FeNa. - c/w IVFcar DVT ppx: SCDs. RITIKAs. Lovenox. Dispo: -pending clinical improvement - patient has had recurrent falls, lives alone and per daughter Amelia (tel [phone]) she has been getting more confused lately. - daughter states that patient has been stubborn and does not wish to leave her home to live in a rehab facility/SNF Vital Signs Vital Signs Date Time Temp Pulse Resp B/P (MAP) Pulse Ox O2 Delivery O2 Flow Rate FiO2 01/20/21 17:04 96.9 72 19 153/69 (97) 96 Room Air Laboratory Data Labs 24H Laboratory Tests 2 01/20/21 10:44: Urine Color YELLOW, Urine Appearance CLOUDYH, Urine pH 7.0, Urine Specific [place] 1.012, Urine Protein 1+H, Urine Glucose (UA) NEGATIVE, Urine Ketones NEGATIVE, Urine Blood 1+H, Urine Nitrite POSITIVEH, Urine Bilirubin NEGATIVE, Urine Urobilinogen 2.0H, Urine Leukocyte Esterase 3+H, Urine WBC (Auto) TNTCH, Urine RBC (Auto) 39H, Urine Hyaline Casts (Auto) 4, Urine Bacteria (Auto) 2+H, Urine Squamous Epithelial Cells 1, Urine Yeast-Like Cells (Auto) SMALLH, Urine Sperm (Auto) 01/20/21 10:51: Immature Granulocyte % (Auto) 0.3, Neutrophils (%) (Auto) 50.5, Lymphocytes (%) (Auto) 35.0, Monocytes (%) (Auto) 7.0, Eosinophils (%) (Auto) 6.6H, Basophils (%) (Auto) 0.6, Neutrophils # (Auto) 3.2, Lymphocytes # (Auto) 2.2, Monocytes # (Auto) 0.5, Eosinophils # (Auto) 0.4, Basophils # (Auto) 0.0, Nucleated Red Blood Cells % (auto) 0.0, Anion Gap 5L, Glomerular Filtration Rate 25.8L, Calcium Level 8.7L, Total Bilirubin 0.5, Direct Bilirubin 0.2, Aspartate Amino Transf (AST/SGOT) 18, Alanine Aminotransferase (ALT/SGPT) 9L, Alkaline Phosphatase 102, Total Creatine Kinase 33, Creatine Kinase MB < 1.0, Creatine Kinase MB Relative Index 3.03, Troponin I < 0.02, Total Protein 5.9L, Albumin 2.1L, Albumin/Globulin Ratio 0.6L CBC/BMP Laboratory Tests 01/20/21 10:51 Microbiology Microbiology 01/20/21 Blood Culture, Received Pending 01/20/21 Respiratory Virus Panel (PCR) (RAMO) - Final, Complete 01/20/21 Blood Culture, Received Pending 01/20/21 Urine Culture, Received Pending Home Medications Scheduled Allopurinol (Allopurinol) 100 Mg Tablet, 100 MG PO DAILY Aspirin (Aspirin EC) 81 Mg Tablet.dr, 81 MG PO DAILY Bupropion Hcl (Bupropion HCl Sr) 150 Mg Tab.sr.12h, 150 MG PO BID Calcitriol (Calcitriol) 0.25 Mcg Capsule, 0.25 MCG PO 3XW MON/WED/FRI Docusate Sodium (Docusate Sodium) 100 Mg Capsule, 100 MG PO BID Fluoxetine Hcl (Fluoxetine HCl) 40 Mg Capsule, 40 MG PO DAILY Furosemide (Furosemide) 40 Mg Tablet, 40 MG PO BID Gabapentin (Gabapentin) 600 Mg Tablet, 600 MG PO TID Glipizide (Glipizide ER) 5 Mg Tab, 5 MG PO DAILY Magnesium Oxide (Magnesium Oxide) 400 Mg Tab, 400 MG PO 3XW MON, WED, FRI Metoprolol Tartrate (Metoprolol Tartrate) 100 Mg Tablet, 100 MG PO DAILY Niacin (Niacin ER) 1,000 Mg Tab, 1,000 MG PO QHS Nitrofurantoin Monohyd/M-Cryst (Macrobid 100 mg Capsule) 100 Mg Capsule, 100 MG PO DAILY Simvastatin (Simvastatin) 20 Mg Tablet, 20 MG PO QHS Scheduled PRN Hydrocodone/Acetaminophen (Hydrocodone-Acetamin 5-325 mg) 1 Each Tablet, 1 TAB PO Q6H PRN for PAIN Ondansetron (Ondansetron Odt) 4 Mg Tab.rapdis, 4 MG PO Q6H PRN for NAUSEA OR VOMITING Allergies Coded Allergies: No Known Allergies (Verified Allergy, Unknown, 10/20/19) LULA JORGE MD Jan 20, 2021 18:01
--- NOTE | 2021-01-20 18:47 | REP ---
INDICATION: concern for osteomyelitis COMPARISON: None. TECHNIQUE: Two views left calcaneus. FINDINGS: There is no evidence of acute fracture, dislocation, or intrinsic bone disease.There are no radiographic signs of osteomyelitis. There is moderate inferior calcaneal spurring. IMPRESSION: No fracture or dislocation. No definite radiographic signs of osteomyelitis of the calcaneus. <Electronically signed by Pedro De La Torre > 01/20/21 [id number]
--- NOTE | 2021-01-20 18:54 | REP ---
INDICATION: concern for osteomyelitis COMPARISON: None. TECHNIQUE: Four views left foot. FINDINGS: There is no evidence of acute fracture, dislocation, or intrinsic bone disease.There is moderate inferior calcaneal spurring. There is mild narrowing at the 1st metatarsophalangeal joint with hallux valgus deformity. There is significant diffuse soft tissue swelling. There are no definite radiographic signs of osteomyelitis. IMPRESSION: No fracture or dislocation. Degenerative changes. Significant soft tissue swelling. No definite radiographic signs of osteomyelitis. <Electronically signed by Pedro De La Torre > 01/20/21 0941
[2021-01-20] MEDS ORDERED: GLUCAGON INJ 1MG VIAL SC PRN (20:00)
[2021-01-20] MEDS ORDERED: GLUCOSE 4GM CHEW TABLET PO PRN (20:00)
[2021-01-20] MEDS ORDERED: NS 1,000 ML IV SCH (20:00)
[2021-01-20] MEDS ORDERED: DEXTROSE 50% 50 ML SYRINGE IV PRN (20:00)
[2021-01-20] MEDS ORDERED: NORCO, ANEXSIA 5/325MG TABLET (HYDROcodone/ACETAMINOPHEN) PO PRN (20:00)
--- NOTE | 2021-01-20 20:34 | REPVR ---
PROCEDURE INFORMATION: Exam: MR Angiogram Head Without Contrast, Arteries Exam date and time: 01/20/2021 7:51 PM Age: 70 years old Clinical indication: Vertigo; Additional info: Vertigo, fall TECHNIQUE: Imaging protocol: MR angiogram head without contrast. Exam focused on the arteries. COMPARISON: CT Head without contrast 01/20/2021 10:53 AM FINDINGS: ANTERIOR CIRCULATION: Right internal carotid artery: Intracranial segment is patent with no significant stenosis. No aneurysm. Right middle cerebral artery: No occlusion or significant stenosis. No aneurysm. Right anterior cerebral artery: There is an aplastic A1 segment of the right anterior cerebral artery. Left internal carotid artery: Intracranial segment is patent with no significant stenosis. No aneurysm. Left middle cerebral artery: No occlusion or significant stenosis. No aneurysm. Left anterior cerebral artery: There is a dominant A1 segment of the left anterior cerebral artery. No stenosis. No aneurysm POSTERIOR CIRCULATION: Right vertebral artery: No occlusion or significant stenosis. No aneurysm. Left vertebral artery: The left vertebral artery is dominant. No stenosis. No aneurysm. Basilar artery: No occlusion or significant stenosis. No aneurysm. Right posterior cerebral artery: There is a origin of the right posterior cerebral artery with a hypoplastic P1 segment. No stenosis. No aneurysm. Left posterior cerebral artery: There is a origin of the left posterior cerebral artery with a hypoplastic P1 segment. No stenosis. No aneurysm. IMPRESSION: No intracranial stenosis or occlusion. Electronically signed by: Srinath Hurst On 01/20/2021 20:34:40 PM
[2021-01-20] MEDS: GABAPENTIN 300 MG CAP PO SCH (20:48)
[2021-01-20] MEDS: NIACIN SR (NIASPAN) 500 MG TAB PO SCH (20:48)
[2021-01-20] MEDS: DOCUSATE SODIUM 100MG CAPSULE PO SCH (20:48)
[2021-01-20] MEDS: SIMVASTATIN 20 MG TAB PO SCH (20:48)
--- NOTE | 2021-01-20 20:55 | REPVR ---
PROCEDURE INFORMATION: Exam: MR Head Without Contrast Exam date and time: 01/20/2021 7:51 PM Age: 70 years old Clinical indication: Other: Vertigo; Additional info: Vertigo, fall TECHNIQUE: Imaging protocol: MR of the head without contrast. COMPARISON: CT Head without contrast 01/20/2021 10:53 AM FINDINGS: Brain: There is volume loss. There is hyperintense signal in the periventricular white matter. DWI demonstrates no evidence of acute infarct. Gradient echo images demonstrate no evidence of hemorrhage. There is no extra-axial collection. There is no mass. There are no abnormal flow voids. Cerebral ventricles: There is no hydrocephalus. Bones/joints: Unremarkable. Paranasal sinuses: Normal as visualized. No acute sinusitis. Mastoid air cells: Normal as visualized. No mastoid effusion. Orbital cavity: Unremarkable. Soft tissues: Unremarkable. IMPRESSION: 1. Mild chronic microvascular disease. 2. No acute intracranial lesion or injury. Electronically signed by: Srinath Hurst On 01/20/2021 20:55:36 PM
[2021-01-20] MEDS: HumaLOG INSULIN (NovoLOG) PER UNIT SC SCH (21:00)
[2021-01-20] MEDS ORDERED: buPROPion **SR TABLET** (ZYBAN) 150MG PO SCH (21:00)
[2021-01-20 22:00] VITALS: BP 134/57
[2021-01-21 05:00] VITALS: BP_SYST 109; BP_SYST 110; BP_DIAS 56
[2021-01-21 06:00] VITALS: BP 109/53
[2021-01-21 07:03] LABS: BASO % 0.5 % (0.0-1.0); EOS # 0.4 10^3/uL (0.0-0.5); EOS % 4.2 % (0.0-3.0); HEMATOCRIT 32.8 % (36.0-47.0); HEMOGLOBIN 10.2 g/dl (12.0-15.5); LYMPH # 2.3 10^3/uL (1.5-5.0); LYMPH % 27.3 % (24.0-44.0); MEAN CORPUSCULAR HEMOGLOBIN 31.9 pg (27.0-33.0); MEAN CORPUSCULAR HGB CONC 31.1 g/dl (32.0-36.5); MEAN CORPUSCULAR VOLUME 102.5 fl (80.0-96.0); MONO # 0.6 10^3/uL (0.0-0.8); MONO % 7.4 % (2.0-8.0); NEUTROPHILS % 60.4 % (36.0-66.0); PLATELET COUNT, AUTOMATED 172 10^3/uL (150-450); WHITE BLOOD COUNT 8.4 10^3/uL (4.0-10.0)
[2021-01-21 07:35] LABS: ALBUMIN 2.1 GM/DL (3.2-5.2); BILIRUBIN,TOTAL 0.5 MG/DL (0.2-1.0); CALCIUM LEVEL 8.9 MG/DL (8.8-10.2); CREATININE FOR GFR 1.79 MG/DL (0.55-1.30); MAGNESIUM LEVEL 1.6 MG/DL (1.8-2.4); POTASSIUM SERUM 3.7 MEQ/L (3.5-5.1); TOTAL PROTEIN 5.6 GM/DL (6.4-8.2)
[2021-01-21] MEDS ORDERED: PNEUMOCOCCAL VACCINE 0.5ML SYRINGE (PNEUMOVAX 23) IM ONE (09:00)
[2021-01-21] MEDS ORDERED: METOPROLOL TARTRATE 100 MG TAB PO SCH (09:00)
[2021-01-21] MEDS ORDERED: FLUoxetine 20 MG CAP PO SCH (09:00)
--- NOTE | 2021-01-21 10:07 | REP ---
INDICATION: bilatera LE swelling L > R. COMPARISON: October 31, 2020.. TECHNIQUE: Bilateral lower extremity duplex venous ultrasound. FINDINGS: The deep veins are anechoic and fully compressible from the groin to the popliteal fossa in the left and right lower extremity. Color flow imaging is homogeneous. Spectral Doppler interrogation demonstrates intact respiratory variation in flow and normal manual augmentation of flow. There is no evidence of deep vein thrombosis. IMPRESSION: Negative bilateral is lower extremity duplex venous ultrasound. No evidence of deep vein thrombosis. <Electronically signed by Michael Ang > 01/21/21 1000
--- NOTE | 2021-01-21 10:07 | REP ---
INDICATION: R vertigo with fall. COMPARISON: None. TECHNIQUE: Real-time ultrasound evaluation and duplex Doppler interrogation of the extracranial carotid vasculature is performed. FINDINGS: Antegrade flow is observed in both vertebral arteries. Right carotid: The right common carotid artery shows diffuse intimal thickening but is otherwise unremarkable. There ismild soft plaquing in the right carotid bulb and proximal ICA on two-dimensional scanning. Color flow and spectral Doppler interrogation are unremarkable on the right. Velocity chart right carotid: Right CCA PSV: 99 cm/S Right ICA PSV: 56 cm/S Right ICA EDV: 12 cm/S Right ECA PSV: 75 cm/S Right ICA/CCA ratio: 0.56 Left carotid: The left common carotid artery shows diffuse intimal thickening but is otherwise unremarkable. There is mild soft plaquing in the left carotid bulb and proximal ICA on two-dimensional scanning. Color flow and spectral Doppler interrogation are unremarkable on the left. Velocity chart left carotid: Left CCA PSV: 83 cm/S Left ICA PSV: 62 cm/S Left ICA EDV: 16 cm/S Left ECA PSV: 78 cm/S Left ICA/CCA ratio: 0.74 IMPRESSION: Less than 50% category narrowing in the right internal carotid artery by Doppler velocity criteria. Less than 50% category narrowing in the left ICA by Doppler velocity criteria. <Electronically signed by Michael Ang > 01/21/21 1002
[2021-01-21] MEDS: HumaLOG INSULIN (NovoLOG) PER UNIT SC SCH ×4 (10:12→20:16)
[2021-01-21] MEDS: allopurinoL 100 MG TAB PO SCH (10:13)
[2021-01-21] MEDS: FLUoxetine 20 MG CAP PO SCH (10:13)
[2021-01-21] MEDS: GABAPENTIN 300 MG CAP PO SCH ×3 (10:13→20:22)
[2021-01-21] MEDS: FUROSEMIDE 40 MG TAB PO SCH ×3 (10:13→16:05)
[2021-01-21] MEDS: DOCUSATE SODIUM 100MG CAPSULE PO SCH ×2 (10:13→20:23)
[2021-01-21] MEDS: METOPROLOL TART 50 MG TAB PO SCH ×2 (10:14→20:23)
[2021-01-21] MEDS: buPROPion (WELLBUTRIN SR) 100 MG SR TAB PO SCH ×2 (10:14→20:23)
[2021-01-21] MEDS: glipiZIDE XL 5 MG TABCR PO SCH (10:14)
[2021-01-21] MEDS: ASPIRIN 81 MG ENTERIC TAB PO SCH (10:14)
[2021-01-21] MEDS: ENOXAPARIN 40MG/0.4ML SYRINGE (J1650 PER 10MG) SC SCH (10:15)
[2021-01-21] MEDS: cefTRIAXone SOD 2 GM in D5W MINI-BAG PLUS 50 ML IV SCH (10:15)
[2021-01-21 14:00] VITALS: BP 143/65
[2021-01-21] MEDS: NIACIN SR (NIASPAN) 500 MG TAB PO SCH (20:22)
[2021-01-21] MEDS: SIMVASTATIN 20 MG TAB PO SCH (20:23)
--- NOTE | 2021-01-21 21:42 | IPNPDOC ---
Text Note Date of Service The patient was seen on 01/21/21. NOTE SUBJECTIVE: Continues to complain of dizziness in sitting and standing position. Says the room spins around. PHYSICAL EXAMINATION: VITAL SIGNS: please see below General: feels dizzy, does not want to open eyes, wants to lay flat and not sit up due to dizziness. No acute distress. HEENT: PERRLA, EOMI, sclerae clear Neck: supple, normal ROM, no JVD Respiratory: reduced inspiratory effort, no wheeze, no rales, no crackles CVS: RRR, normal S1, S2, no murmurs Abdo: soft, no masses, no hepatosplenomegaly, BS+, no rebound tenderness Extremities: s MSK: 2 cm in diameter heel ulceration, < 5 mm in depth, with overlying slough. No granulation tissue seen. Pulses faint. Neuro: no focal neuro deficits, moving all 4 extremities, CN2-12 intact. Strength 5/5 in all 4 extremities. No nystagmus. Psych: calm, cooperative, AAO x 3 Labs and radiology : reviewed. IMAGING: CT head wo contrast (01/20/21) No acute intracranial abnormality. No evidence of skull fracture.. CT c spine (01/20/21) Degenerative spondylosis changes. No fracture or other acute bony abnormality.. CXR (01/20/21) Mild cardiomegaly. Otherwise no acute disease. MICROBIOLOGY: Please see below. Assessment and plan: 70 yo F with a hx of HTN, CKD 3, diastolic CHF, CARLA, DM2 with neuropathy, venous insufficiency, chronic back pain due to degenerative disk disease and spinal stenosis, Morbid obesity with BMI of 48. Chronic Venous insufficiency,bipeda lymphedema, chronic stasis dermatitis, Depression, Hypercholesterolemia, History of gout and hyperuricemia, hx of uterine cancer, was brought to [facility] by EMS after sustaining two falls at home. She reports the first fall to be mechanical, after tripping over a rug, and the other to be related to significant dizziness. Daughter reports that she has been falling frequently and also she was getting more confused. She was noted to have a dirty UA. She was admitted for possible UTi, vertigo. falls and confusion. Urinary Tract Infection VS asymptomatic bacteruria on ceftriaxone will continue for now. f/u urine culture. Blood culture were sent as well Dizziness no stroke will evaluate vestibular function. Orthostatic vitals. will reduce doses of wellbutrin and prozac which are known to cause dizziness. No Carotid artery significant obstruction. Falls 2/2 debility and vertigo, spinal stenosis CT and C spine showed not fractures or bleed reported signifiicant leg weakness on walking, uses walker to ambulate ECHO from 11/01/20: LVEF 60-65%, minimally calcified aortic valve. Nomal TV. Mild calcified MV. Grade 2 diastolic dysfunction. MRI and MRA of the brain negative for any stroke. L heel ulceration with discharge and surrounding mild inflammation Xray of foot no definite OM will consult podiatry Bilateral LE swelling and erythema No DVT. bilateral lymphedema and chronic venous dermatitis with some bilateral rubor at the shins. Hx of afib with RVR not on AC monitor electrolytes as per daughter Claire at [phone], she states that her mother discontinued the eliquis on her own. patient denies taking eliquis DM2 ISS, FSBS AC and HS hypoglycemic precautions DEB on CKD III Cr baseline 1.25 - 1.4 Cr 2.04 suspect pre-renal etiology as patient reports reduce PO intake DVT ppx: SCDs. TEDs. Lovenox. VS,Fishbone, I+O VS, Fishbone, I+O Laboratory Tests 01/21/21 06:43 Vital Signs Date Time Temp Pulse Resp B/P (MAP) Pulse Ox O2 Delivery O2 Flow Rate FiO2 01/21/21 20:23 74 132/61 01/21/21 14:00 97.9 18 94 Room Air I&O- Last 24 Hours up to 6 AM 01/21/21 06:59 Intake Total 1600 ml Balance 1600 ml LUTHER BUI MD Jan 21, 2021 21:42
[2021-01-21 22:00] VITALS: BP 132/61
[2021-01-22 06:00] VITALS: BP 143/65
[2021-01-22 06:42] LABS: BASO % 0.4 % (0.0-1.0); EOS # 0.5 10^3/uL (0.0-0.5); EOS % 5.9 % (0.0-3.0); HEMOGLOBIN 10.5 g/dl (12.0-15.5); LYMPH # 2.7 10^3/uL (1.5-5.0); LYMPH % 31.8 % (24.0-44.0); MEAN CORPUSCULAR HGB CONC 30.9 g/dl (32.0-36.5); MEAN CORPUSCULAR VOLUME 100.3 fl (80.0-96.0); MONO # 0.7 10^3/uL (0.0-0.8); MONO % 8.3 % (2.0-8.0); NEUTROPHILS # 4.5 10^3/uL (1.5-8.5); NEUTROPHILS % 53.4 % (36.0-66.0); PLATELET COUNT, AUTOMATED 155 10^3/uL (150-450); RED BLOOD COUNT 3.39 10^6/uL (4.00-5.40); WHITE BLOOD COUNT 8.5 10^3/uL (4.0-10.0)
[2021-01-22 06:56] LABS: ALBUMIN 1.9 GM/DL (3.2-5.2); BILIRUBIN,TOTAL 0.5 MG/DL (0.2-1.0); CALCIUM LEVEL 8.7 MG/DL (8.8-10.2); CREATININE FOR GFR 1.73 MG/DL (0.55-1.30); GLOMERULAR FILTRATION RATE 31.2 (>45); MAGNESIUM LEVEL 1.5 MG/DL (1.8-2.4); POTASSIUM SERUM 3.5 MEQ/L (3.5-5.1); TOTAL PROTEIN 6.1 GM/DL (6.4-8.2)
[2021-01-22] MEDS: HumaLOG INSULIN (NovoLOG) PER UNIT SC SCH ×4 (07:30→21:00)
[2021-01-22] MEDS ORDERED: MAG SULF 1GM/100ML (MAG RUN) 1 GM in IV 1 EA IV ONE (08:00)
[2021-01-22] MEDS: METOPROLOL TART 50 MG TAB PO SCH ×2 (09:00→21:30)
[2021-01-22] MEDS: FUROSEMIDE 40 MG TAB PO SCH ×2 (10:17→12:00)
[2021-01-22] MEDS: GABAPENTIN 300 MG CAP PO SCH ×3 (10:17→21:31)
[2021-01-22] MEDS: cefTRIAXone SOD 2 GM in D5W MINI-BAG PLUS 50 ML IV SCH (10:17)
[2021-01-22] MEDS: DOCUSATE SODIUM 100MG CAPSULE PO SCH ×2 (10:18→21:29)
[2021-01-22] MEDS: allopurinoL 100 MG TAB PO SCH (10:18)
[2021-01-22] MEDS: ASPIRIN 81 MG ENTERIC TAB PO SCH (10:18)
[2021-01-22] MEDS: FLUoxetine 20 MG CAP PO SCH (10:18)
[2021-01-22] MEDS: ENOXAPARIN 40MG/0.4ML SYRINGE (J1650 PER 10MG) SC SCH (10:19)
[2021-01-22] MEDS: buPROPion (WELLBUTRIN SR) 100 MG SR TAB PO SCH ×2 (10:26→21:29)
[2021-01-22] MEDS: glipiZIDE XL 5 MG TABCR PO SCH (10:26)
--- NOTE | 2021-01-22 11:35 | IPNPDOC ---
Text Note Date of Service The patient was seen on 01/22/21. NOTE SUBJECTIVE: feeling a little better today, dizziness is less, able to sit up with no dizziness, no nausea, tolerating diet. PHYSICAL EXAMINATION: VITAL SIGNS: please see below General:NAD sitting up in bed in no discomfort. HEENT: PERRLA, EOMI, sclerae clear Neck: supple, normal ROM, no JVD Respiratory: reduced inspiratory effort, no wheeze, no rales, no crackles CVS: RRR, normal S1, S2, no murmurs Abdo: soft, no masses, no hepatosplenomegaly, BS+, no rebound tenderness MSK: 2 cm in diameter heel ulceration, < 5 mm in depth, with overlying slough. No granulation tissue seen. Pulses faint. Neuro: no focal neuro deficits, moving all 4 extremities, CN2-[address] ngth 5/5 in all 4 extremities. No nystagmus. Psych: calm, cooperative, AAO x 3 Labs and radiology : reviewed. IMAGING: CT head wo contrast (01/20/21) No acute intracranial abnormality. No evidence of skull fracture.. CT c spine (01/20/21) Degenerative spondylosis changes. No fracture or other acute bony abnormality.. CXR (01/20/21) Mild cardiomegaly. Otherwise no acute disease. MICROBIOLOGY: Please see below. Assessment and plan: 70 yo F with a hx of HTN, CKD 3, diastolic CHF, CARLA, DM2 with neuropathy, venous insufficiency, chronic back pain due to degenerative disk disease and spinal stenosis, Morbid obesity with BMI of 48. Chronic Venous insufficiency,bipeda lymphedema, chronic stasis dermatitis, Depression, Hypercholesterolemia, History of gout and hyperuricemia, hx of uterine cancer, was brought to [facility] by EMS after sustaining two falls at home. She reports the first fall to be mechanical, after tripping over a rug, and the other to be related to significant dizziness. Daughter reports that she has been falling frequently and also she was getting more confused. She was noted to have a dirty UA. She was admitted for possible UTi, vertigo. falls and confusion. Urinary Tract Infection VS asymptomatic bacteruria urine culture with > 100K E coli on ceftriaxone will continue for now. Dizziness no stroke will evaluate vestibular function. Orthostatic vitals. reduced doses of wellbutrin and prozac which are known to cause dizziness. No Carotid artery significant obstruction. Falls 2/2 debility and vertigo, spinal stenosis CT and C spine showed not fractures or bleed reported signifiicant leg weakness on walking, uses walker to ambulate ECHO from 11/01/20: LVEF 60-65%, minimally calcified aortic valve. Nomal TV. Mild calcified MV. Grade 2 diastolic dysfunction. MRI and MRA of the brain negative for any stroke. Infected L heel ulceration Xray of foot and heel no definite OM will consult podiatry continue ceftriaxone. Bilateral LE swelling and erythema No DVT. bilateral lymphedema and chronic venous dermatitis with some bilateral rubor at the shins. Hx of afib with RVR not on AC monitor electrolytes as per daughter Claire at [phone], she states that her mother discontinued the eliquis on her own. patient denies taking eliquis DM2 ISS, FSBS AC and HS hypoglycemic precautions DEB on CKD III Cr baseline 1.25 - 1.4 Cr 2.04 suspect pre-renal etiology as patient reports reduce PO intake DVT ppx: SCDs. TEDs. Lovenox. VS,Fishbone, I+O VS, Fishbone, I+O Laboratory Tests 01/22/21 05:59 Vital Signs Date Time Temp Pulse Resp B/P (MAP) Pulse Ox O2 Delivery O2 Flow Rate FiO2 01/22/21 09:00 78 103/53 01/22/21 06:00 97.7 18 95 Room Air I&O- Last 24 Hours up to 6 AM 01/22/21 06:00 Intake Total 1455 ml Balance 1455 ml LUTHER BUI MD Jan 22, 2021 11:35
[2021-01-22 14:00] VITALS: BP 104/53
[2021-01-22] MEDS: NYSTATIN 100,000 UNITS/GM TOPICAL PWD 15 GM TOP SCH ×2 (17:02→21:31)
--- NOTE | 2021-01-22 20:15 | CR ---
CONSULTATION DATE: 01/22/2021 REASON FOR CONSULTATION: Left heel wound. HISTORY OF PRESENT ILLNESS: Ms. Muir is a 70-year-old female who is admitted to the hospital due to fall and altered mental status. She was found to have an ulceration on her left heel, which daughter states she has been caring for at home. She has not had any physician evaluation of the wound. PAST MEDICAL HISTORY: 1. Hypertension. 2. Chronic kidney disease stage III. 3. Diastolic CHF. 4. Obstructive sleep apnea. 5. Diabetes with peripheral neuropathy. 6. Chronic back pain. 7. Morbid obesity. 8. Venous insufficiency. 9. Depression. 10. Hypercholesterolemia. 11. Gout. 12. Hyperuricemia. PAST SURGICAL HISTORY: 1. Uterine cancer. 2. Appendectomy. 3. Tonsillectomy. 4. Right elbow surgery. SOCIAL HISTORY: Denies smoking. Denies alcohol use or illicit drug use. ALLERGIES: No known drug allergies. REVIEW OF SYSTEMS: Positive for fevers and chills. VITAL SIGNS: Reviewed. T-max 100.1. LABORATORY DATA: Reviewed. White blood cell count 8.5. PHYSICAL EXAMINATION: Lower extremity examination with significant edema bilateral lower extremities. Pedal pulses are nonpalpable. On the left foot, there is an ulceration to the posterior heel with necrotic fibrous and fat tissue with some local erythema. ASSESSMENT: A 70-year-old diabetic female with left heel pressure ulceration. TREATMENT: Bedside debride was performed in excisional fashion using a dermal curette including subcutaneous tissue and fat. Wound care ordered. Santyl, Vashe, and Optifoam dressings. Heel foam boots are to be worn while in bed. Recommend tele-consultation with Dr. Land for further wound care recommendations, and he should be the wound care follow-up once the patient is discharged. Will follow.
[2021-01-22] MEDS: SIMVASTATIN 20 MG TAB PO SCH (21:31)
[2021-01-22] MEDS: NIACIN SR (NIASPAN) 500 MG TAB PO SCH (21:31)
[2021-01-22 22:00] VITALS: BP 120/56
[2021-01-23 06:00] VITALS: BP 112/53
[2021-01-23 06:52] LABS: BASO % 0.3 % (0.0-1.0); EOS # 0.6 10^3/uL (0.0-0.5); HEMATOCRIT 32.5 % (36.0-47.0); LYMPH # 2.5 10^3/uL (1.5-5.0); LYMPH % 36.3 % (24.0-44.0); MEAN CORPUSCULAR HEMOGLOBIN 31.2 pg (27.0-33.0); MEAN CORPUSCULAR HGB CONC 30.8 g/dl (32.0-36.5); MEAN CORPUSCULAR VOLUME 101.2 fl (80.0-96.0); MONO # 0.6 10^3/uL (0.0-0.8); MONO % 8.7 % (2.0-8.0); NEUTROPHILS # 3.2 10^3/uL (1.5-8.5); NEUTROPHILS % 45.4 % (36.0-66.0); PLATELET COUNT, AUTOMATED 163 10^3/uL (150-450); RED BLOOD COUNT 3.21 10^6/uL (4.00-5.40)
[2021-01-23 07:22] LABS: ALBUMIN 1.9 GM/DL (3.2-5.2); BILIRUBIN,TOTAL 0.4 MG/DL (0.2-1.0); CALCIUM LEVEL 9.1 MG/DL (8.8-10.2); CREATININE FOR GFR 1.69 MG/DL (0.55-1.30); MAGNESIUM LEVEL 1.8 MG/DL (1.8-2.4); POTASSIUM SERUM 4.1 MEQ/L (3.5-5.1); TOTAL PROTEIN 6.2 GM/DL (6.4-8.2)
[2021-01-23] MEDS: METOPROLOL TART 50 MG TAB PO SCH ×2 (09:00→20:32)
[2021-01-23] MEDS: SANTYL OINT 30GM TOP SCH (09:07)
[2021-01-23] MEDS: HumaLOG INSULIN (NovoLOG) PER UNIT SC SCH ×5 (09:07→20:26)
[2021-01-23] MEDS: ENOXAPARIN 40MG/0.4ML SYRINGE (J1650 PER 10MG) SC SCH (09:08)
[2021-01-23] MEDS: glipiZIDE XL 5 MG TABCR PO SCH (09:08)
[2021-01-23] MEDS: buPROPion (WELLBUTRIN SR) 100 MG SR TAB PO SCH ×2 (09:08→20:32)
[2021-01-23] MEDS: FLUoxetine 20 MG CAP PO SCH (09:08)
[2021-01-23] MEDS: DOCUSATE SODIUM 100MG CAPSULE PO SCH ×2 (09:09→20:31)
[2021-01-23] MEDS: allopurinoL 100 MG TAB PO SCH (09:09)
[2021-01-23] MEDS: ASPIRIN 81 MG ENTERIC TAB PO SCH (09:09)
[2021-01-23] MEDS: cefTRIAXone SOD 2 GM in D5W MINI-BAG PLUS 50 ML IV SCH (09:09)
[2021-01-23] MEDS: GABAPENTIN 300 MG CAP PO SCH ×3 (09:09→20:32)
[2021-01-23] MEDS: NYSTATIN 100,000 UNITS/GM TOPICAL PWD 15 GM TOP SCH ×2 (09:10→20:33)
[2021-01-23] MEDS: FUROSEMIDE 80 MG TAB PO SCH (09:36)
[2021-01-23 13:20] VITALS: BP 132/71
--- NOTE | 2021-01-23 13:39 | IPNPDOC ---
Text Note Date of Service The patient was seen on 01/23/21. NOTE SUBJECTIVE: Feeling a better today, dizziness is less, tolerating diet was able to work with PT. She did become orthostatic upon standing after sitting in the toilet for a long time when her SBP dropped to 89 also but recovered quickly. PHYSICAL EXAMINATION: VITAL SIGNS: please see below General: NAD sitting up in bed in no discomfort. HEENT: PERRLA, EOMI, sclerae clear Neck: supple, normal ROM, no JVD Respiratory: reduced inspiratory effort, no wheeze, no rales, no crackles CVS: RRR, normal S1, S2, no murmurs Abdo: soft, no masses, no hepatosplenomegaly, BS+, no rebound tenderness MSK: 2 cm in diameter heel ulceration, < 5 mm in depth, with overlying slough. No granulation tissue seen. Pulses faint. Neuro: no focal neuro deficits, moving all 4 extremities, CN2-12 intact. Strength 5/5 in all 4 extremities. No nystagmus. Psych: calm, cooperative, AAO x 3 Labs and radiology : reviewed. IMAGING: CT head wo contrast (01/20/21) No acute intracranial abnormality. No evidence of skull fracture.. CT c spine (01/20/21) Degenerative spondylosis changes. No fracture or other acute bony abnormality.. CXR (01/20/21) Mild cardiomegaly. Otherwise no acute disease. MICROBIOLOGY: Please see below. Assessment and plan: 70 yo F with a hx of HTN, CKD 3, diastolic CHF, CARLA, DM2 with neuropathy, venous insufficiency, chronic back pain due to degenerative disk disease and spinal stenosis, Morbid obesity with BMI of 48. Chronic Venous insufficiency,bipeda lymphedema, chronic stasis dermatitis, Depression, Hypercholesterolemia, History of gout and hyperuricemia, hx of uterine cancer, was brought to [facility] by EMS after sustaining two falls at home. She reports the first fall to be mechanical, after tripping over a rug, and the other to be related to significant dizziness. Daughter reports that she has been falling frequently and also she was getting more confused. She was noted to have a dirty UA. She was admitted for possible UTi, vertigo. falls and confusion. Urinary Tract Infection VS asymptomatic bacteruria urine culture with > 100K E coli on ceftriaxone will continue Dizziness no stroke vestibular function was negative for BPPV. Orthostatic vitals were positive reduced doses of wellbutrin and prozac which are known to cause dizziness. No Carotid artery significant obstruction. Falls 2/2 debility and vertigo, spinal stenosis CT and C spine showed not fractures or bleed reported significant leg weakness on walking, uses walker to ambulate ECHO from 11/01/20: LVEF 60-65%, minimally calcified aortic valve. Nomal TV. Mild calcified MV. Grade 2 diastolic dysfunction. MRI and MRA of the brain negative for any stroke. Infected L heel ulceration Xray of foot and heel no definite OM Had bedside debridement done by podiatry Dr moran consulted. continue ceftriaxone. Bilateral LE swelling and erythema No DVT. bilateral lymphedema and chronic venous dermatitis with some bilateral rubor at the shins. Hx of afib with RVR not on AC monitor electrolytes as per daughter Claire at [phone], she states that her mother discontinued the eliquis on her own. patient denies taking eliquis DM2 ISS, FSBS AC and HS hypoglycemic precautions CKD stage 3 DEB has resolved. creatinine at baseline usually at 1.4 to 1.7 DVT ppx: SCDs. TEDs. Lovenox. VS,Fishbone, I+O VS, Fishbone, I+O Laboratory Tests 01/23/21 06:13 Vital Signs Date Time Temp Pulse Resp B/P (MAP) Pulse Ox O2 Delivery O2 Flow Rate FiO2 01/23/21 13:20 97.8 80 17 132/71 (91) 97 Room Air I&O- Last 24 Hours up to 6 AM 01/23/21 06:00 Intake Total 960 ml Output Total 0 ml Balance 960 ml LUTHER BUI MD Jan 23, 2021 13:39
--- NOTE | 2021-01-23 16:47 | CR ---
CONSULTATION DATE: 01/23/2021 REQUESTED BY: Dr. Lombardo REASON FOR CONSULTATION: Regarding treatment suggestions for left heel wound. HISTORY OF PRESENT ILLNESS: A 70-year-old morbidly obese diabetic female admitted for weakness and multiple falls. Patient was found to have a wound involving the left heel. Patient was seen by Dr. Richey of podiatry, who did an initial debridement. His followup orders were to clean wound with Vashe wound cleanser followed by Roseanne. I would agree on those orders; however, I would replace gauze dressings with Hydrofera Blue Ready to be changed on a daily basis. A heel float boot is mandatory to offload the wound and will be ordered. Note that the Velcro straps oftentimes can irritate the dorsal aspect of the ankle, and this should be padded under the Velcro straps with an ABD pad. Patient has massive bilateral lower extremity gravitational edema with associated lipodermatosclerosis. and would benefit from TubiGrip support stockings and mild Trendelenburg position of the bed as tolerated. An arterial ultrasound of the left lower extremity would also be helpful and has been ordered. On inspection, the left heel shows a wound measuring 3.5 cm x 4.0 cm with a wound depth of 0.2 cm. There are areas of fibrin slough present. No deep structures are visualized on telemedicine. There is no erythema or ischemic changes involving the periwound or wound edge. Patient's blood glucose today was 149, and a hemoglobin A1c would be helpful if not already ordered. If the patient stabilizes and is discharged and wishes to followup at our wound clinic, please send a referral in, and we can followup as needed. ROSE
[2021-01-23] MEDS: NIACIN SR (NIASPAN) 500 MG TAB PO SCH (20:31)
[2021-01-23] MEDS: SIMVASTATIN 20 MG TAB PO SCH (20:32)
[2021-01-23 22:00] VITALS: BP 120/57
[2021-01-24 06:00] VITALS: BP 122/68
[2021-01-24 06:29] LABS: BASO % 0.6 % (0.0-1.0); EOS # 0.6 10^3/uL (0.0-0.5); EOS % 9.4 % (0.0-3.0); HEMATOCRIT 29.5 % (36.0-47.0); HEMOGLOBIN 9.1 g/dl (12.0-15.5); LYMPH # 2.7 10^3/uL (1.5-5.0); LYMPH % 41.1 % (24.0-44.0); MEAN CORPUSCULAR HEMOGLOBIN 31.3 pg (27.0-33.0); MEAN CORPUSCULAR HGB CONC 30.8 g/dl (32.0-36.5); MEAN CORPUSCULAR VOLUME 101.4 fl (80.0-96.0); MONO # 0.7 10^3/uL (0.0-0.8); MONO % 10.6 % (2.0-8.0); NEUTROPHILS # 2.5 10^3/uL (1.5-8.5); PLATELET COUNT, AUTOMATED 136 10^3/uL (150-450); RED BLOOD COUNT 2.91 10^6/uL (4.00-5.40); WHITE BLOOD COUNT 6.5 10^3/uL (4.0-10.0)
[2021-01-24 06:51] LABS: ALBUMIN 1.8 GM/DL (3.2-5.2); BILIRUBIN,TOTAL 0.3 MG/DL (0.2-1.0); CALCIUM LEVEL 8.3 MG/DL (8.8-10.2); CREATININE FOR GFR 1.57 MG/DL (0.55-1.30); GLOMERULAR FILTRATION RATE 34.9 (>45); POTASSIUM SERUM 3.3 MEQ/L (3.5-5.1); TOTAL PROTEIN 5.1 GM/DL (6.4-8.2)
[2021-01-24] MEDS ORDERED: POTASSIUM CHLORIDE 10 MEQ SR TABLET PO ONE (08:05)
[2021-01-24] MEDS: cefTRIAXone SOD 2 GM in D5W MINI-BAG PLUS 50 ML IV SCH (08:16)
[2021-01-24] MEDS: DOCUSATE SODIUM 100MG CAPSULE PO SCH ×2 (08:17→21:36)
[2021-01-24] MEDS: ASPIRIN 81 MG ENTERIC TAB PO SCH (08:17)
[2021-01-24] MEDS: GABAPENTIN 300 MG CAP PO SCH ×3 (08:17→21:36)
[2021-01-24] MEDS: FLUoxetine 20 MG CAP PO SCH (08:18)
[2021-01-24] MEDS: FUROSEMIDE 80 MG TAB PO SCH (08:18)
[2021-01-24] MEDS: buPROPion (WELLBUTRIN SR) 100 MG SR TAB PO SCH ×2 (08:18→21:36)
[2021-01-24] MEDS: ENOXAPARIN 40MG/0.4ML SYRINGE (J1650 PER 10MG) SC SCH (08:18)
[2021-01-24] MEDS: glipiZIDE XL 5 MG TABCR PO SCH (08:19)
[2021-01-24] MEDS: allopurinoL 100 MG TAB PO SCH (08:19)
[2021-01-24] MEDS: METOPROLOL TART 50 MG TAB PO SCH ×2 (08:19→21:37)
[2021-01-24] MEDS: HumaLOG INSULIN (NovoLOG) PER UNIT SC SCH ×4 (08:19→21:00)
[2021-01-24] MEDS: DIMETHICONE 2% OINTMENT(VANICREAM) 70GM TUBE TOP SCH ×2 (08:19→21:38)
[2021-01-24] MEDS: NYSTATIN 100,000 UNITS/GM TOPICAL PWD 15 GM TOP SCH ×2 (08:20→21:37)
[2021-01-24] MEDS: SANTYL OINT 30GM TOP SCH (08:20)
[2021-01-24 09:06] LABS: HEMOGLOBIN A1c 6.3 %
[2021-01-24] MEDS ORDERED: BUPR10TASR PO (10:19)
[2021-01-24] MEDS ORDERED: NYST10006 TOP (10:19)
[2021-01-24] MEDS ORDERED: FURO40TA2 PO (10:19)
[2021-01-24] MEDS ORDERED: LOPR1TAB6 PO (10:19)
[2021-01-24] MEDS ORDERED: SANT250O8 TOP (10:19)
[2021-01-24] MEDS ORDERED: Dimethicone TOP (10:19)
[2021-01-24] MEDS ORDERED: FLUO20CA22 PO (10:19)
[2021-01-24] MEDS ORDERED: CEFD300CAP PO (10:19)
--- NOTE | 2021-01-24 13:28 | IPNPDOC ---
Text Note Date of Service The patient was seen on 01/24/21. NOTE SUBJECTIVE: Feeling a better today, No further dizziness. Tolerating diet was able to work with PT. Negative orthostatics now. PHYSICAL EXAMINATION: VITAL SIGNS: please see below General: NAD sitting up in bed in no discomfort. HEENT: PERRLA, EOMI, sclerae clear Neck: supple, normal ROM, no JVD Respiratory: reduced inspiratory effort, no wheeze, no rales, no crackles CVS: RRR, normal S1, S2, no murmurs Abdo: soft, no masses, no hepatosplenomegaly, BS+, no rebound tenderness MSK: 2 cm in diameter heel ulceration, < 5 mm in depth, with overlying slough. No granulation tissue seen. Pulses faint. Neuro: no focal neuro deficits, moving all 4 extremities, CN2-12 intact. Strength 5/5 in all 4 extremities. No nystagmus. Psych: calm, cooperative, AAO x 3 Labs and radiology : reviewed. IMAGING: CT head wo contrast (01/20/21) No acute intracranial abnormality. No evidence of skull fracture.. CT c spine (01/20/21) Degenerative spondylosis changes. No fracture or other acute bony abnormality.. CXR (01/20/21) Mild cardiomegaly. Otherwise no acute disease. MICROBIOLOGY: Please see below. Assessment and plan: 70 yo F with a hx of HTN, CKD 3, diastolic CHF, CARLA, DM2 with neuropathy, venous insufficiency, chronic back pain due to degenerative disk disease and spinal stenosis, Morbid obesity with BMI of 48. Chronic Venous insufficiency, bipedal lymphedema, chronic stasis dermatitis, Depression, Hypercholesterolemia, History of gout and hyperuricemia, hx of u terine cancer, was brought to [facility] by EMS after sustaining two falls at home. She reports the first fall to be mechanical, after tripping over a rug, and the other to be related to significant dizziness. Daughter reports that she has been falling frequently and also she was getting more confused. She was noted to have a dirty UA. She was admitted for possible UTi, vertigo. falls and confusion. Urinary Tract Infection urine culture with > 100K E coli Cefdinir Dizziness Due to orthostatic hypotension. no stroke vestibular function was negative for BPPV. Orthostatic vitals were positive reduced doses of wellbutrin and prozac which are known to cause dizziness. No Carotid artery significant obstruction. Falls 2/2 debility and vertigo, spinal stenosis CT and C spine showed no fractures or bleed reported significant leg weakness on walking, uses walker to ambulate ECHO from 11/01/20: LVEF 60-65%, minimally calcified aortic valve. Nomal TV. Mild calcified MV. Grade 2 diastolic dysfunction. MRI and MRA of the brain negative for any stroke. Infected L heel ulceration Xray of foot and heel no definite OM Had bedside debridement done by podiatry Seen by Dr moran. will follow dressing recommendations. continue ceftriaxone. Bilateral LE swelling and erythema No DVT. bilateral lymphedema and chronic venous dermatitis with some bilateral rubor at the shins. trendelenberg position if tolerated, tubigrip stockings. Hx of afib with RVR not on AC monitor electrolytes as per daughter Claire at [phone], she states that her mother discontinued the eliquis on her own. patient denies taking eliquis DM2 ISS, FSBS AC and HS hypoglycemic precautions CKD stage 3 DEB has resolved. creatinine at baseline usually at 1.4 to 1.7 DVT ppx: SCDs. TEDs. Lovenox. VS,Fishbone, I+O VS, Fishbone, I+O Laboratory Tests 01/24/21 06:02 Vital Signs Date Time Temp Pulse Resp B/P (MAP) Pulse Ox O2 Delivery O2 Flow Rate FiO2 01/24/21 08:19 84 120/57 01/24/21 06:00 97.4 16 97 Room Air I&O- Last 24 Hours up to 6 AM 01/24/21 06:00 Intake Total 1220 ml Output Total 0 ml Balance 1220 ml LUTHER BUI MD Jan 24, 2021 13:28
[2021-01-24 14:00] VITALS: BP 144/68
--- NOTE | 2021-01-24 14:06 | REP ---
INDICATION: left leg arterial US- left heel wound. COMPARISON: None. TECHNIQUE: Unilateral left lower extremity arterial Doppler ultrasound. FINDINGS: The ankle brachial index could not be performed. The patient was unable to tolerate blood pressure cuff placement and inflation. Exam quality is somewhat limited due to edema and patient body habitus. Mild to moderate plaquing is observed. No stenosis or occlusion is seen. Monophasic arterial Doppler waveforms are noted at and distal to the tibial-peroneal trunk. Left lower extremity arterial Doppler velocity chart: Left DIRECTOR OF SOCIAL WORK PSV 171/162 cm/S Profundal 127 Proximal SFA 183 Mid SFA 170 Distal SFA 104 Popliteal 99/133 Proximal EVA 91 Tibial-peroneal trunk 157 Proximal COATING ENGINEER 62 Distal COATING ENGINEER 73 Distal EVA 82 IMPRESSION: Moderate plaquing. No high-grade stenosis or occlusion seen. <Electronically signed by Michael Ang > 01/24/21 [id number]
[2021-01-24] MEDS: CEFDINIR 300 MG CAP (OMNICEF) PO SCH (21:36)
[2021-01-24] MEDS: NIACIN SR (NIASPAN) 500 MG TAB PO SCH (21:36)
[2021-01-24] MEDS: SIMVASTATIN 20 MG TAB PO SCH (21:36)
[2021-01-24 22:00] VITALS: BP 121/55
[2021-01-25 06:00] VITALS: BP 117/56
[2021-01-25 06:33] LABS: BASO % 0.5 % (0.0-1.0); EOS # 0.6 10^3/uL (0.0-0.5); EOS % 10.1 % (0.0-3.0); HEMATOCRIT 30.7 % (36.0-47.0); HEMOGLOBIN 9.8 g/dl (12.0-15.5); LYMPH # 2.7 10^3/uL (1.5-5.0); LYMPH % 42.8 % (24.0-44.0); MEAN CORPUSCULAR HGB CONC 31.9 g/dl (32.0-36.5); MEAN CORPUSCULAR VOLUME 100.3 fl (80.0-96.0); MONO # 0.7 10^3/uL (0.0-0.8); MONO % 10.6 % (2.0-8.0); NEUTROPHILS # 2.3 10^3/uL (1.5-8.5); NEUTROPHILS % 35.8 % (36.0-66.0); PLATELET COUNT, AUTOMATED 149 10^3/uL (150-450); RED BLOOD COUNT 3.06 10^6/uL (4.00-5.40); WHITE BLOOD COUNT 6.3 10^3/uL (4.0-10.0)
[2021-01-25 06:56] LABS: ALBUMIN 1.9 GM/DL (3.2-5.2); BILIRUBIN,TOTAL 0.3 MG/DL (0.2-1.0); CALCIUM LEVEL 8.4 MG/DL (8.8-10.2); CREATININE FOR GFR 1.45 MG/DL (0.55-1.30); GLOMERULAR FILTRATION RATE 38.2 (>45); POTASSIUM SERUM 3.6 MEQ/L (3.5-5.1); TOTAL PROTEIN 5.5 GM/DL (6.4-8.2)
[2021-01-25] MEDS: ENOXAPARIN 40MG/0.4ML SYRINGE (J1650 PER 10MG) SC SCH (08:57)
[2021-01-25] MEDS: HumaLOG INSULIN (NovoLOG) PER UNIT SC SCH ×4 (08:58→21:00)
[2021-01-25] MEDS: GABAPENTIN 300 MG CAP PO SCH ×3 (08:58→21:34)
[2021-01-25] MEDS: FLUoxetine 20 MG CAP PO SCH (08:58)
[2021-01-25] MEDS: DOCUSATE SODIUM 100MG CAPSULE PO SCH ×2 (08:58→21:34)
[2021-01-25] MEDS: glipiZIDE XL 5 MG TABCR PO SCH (08:59)
[2021-01-25] MEDS: CEFDINIR 300 MG CAP (OMNICEF) PO SCH ×2 (08:59→21:34)
[2021-01-25] MEDS: allopurinoL 100 MG TAB PO SCH (08:59)
[2021-01-25] MEDS: ASPIRIN 81 MG ENTERIC TAB PO SCH (08:59)
[2021-01-25] MEDS: buPROPion (WELLBUTRIN SR) 100 MG SR TAB PO SCH ×2 (08:59→21:35)
[2021-01-25] MEDS: METOPROLOL TART 50 MG TAB PO SCH ×2 (08:59→21:00)
[2021-01-25] MEDS: FUROSEMIDE 80 MG TAB PO SCH (08:59)
[2021-01-25] MEDS: NYSTATIN 100,000 UNITS/GM TOPICAL PWD 15 GM TOP SCH ×2 (09:02→21:35)
[2021-01-25] MEDS: SANTYL OINT 30GM TOP SCH (09:02)
[2021-01-25] MEDS: DIMETHICONE 2% OINTMENT(VANICREAM) 70GM TUBE TOP SCH ×2 (09:03→21:35)
[2021-01-25 20:00] VITALS: BP 118/49
[2021-01-25] MEDS: SIMVASTATIN 20 MG TAB PO SCH (21:34)
[2021-01-25] MEDS: NIACIN SR (NIASPAN) 500 MG TAB PO SCH (21:34)
[2021-01-26 06:00] VITALS: BP 134/60
[2021-01-26] MEDS: HumaLOG INSULIN (NovoLOG) PER UNIT SC SCH ×4 (07:30→20:04)
[2021-01-26] MEDS: CEFDINIR 300 MG CAP (OMNICEF) PO SCH ×2 (09:31→20:46)
[2021-01-26] MEDS: FUROSEMIDE 80 MG TAB PO SCH (09:31)
[2021-01-26] MEDS: DOCUSATE SODIUM 100MG CAPSULE PO SCH ×2 (09:31→20:46)
[2021-01-26] MEDS: GABAPENTIN 300 MG CAP PO SCH ×3 (09:31→20:46)
[2021-01-26] MEDS: allopurinoL 100 MG TAB PO SCH (09:31)
[2021-01-26] MEDS: FLUoxetine 20 MG CAP PO SCH (09:31)
[2021-01-26] MEDS: glipiZIDE XL 5 MG TABCR PO SCH (09:31)
[2021-01-26] MEDS: buPROPion (WELLBUTRIN SR) 100 MG SR TAB PO SCH ×2 (09:31→20:46)
[2021-01-26] MEDS: ASPIRIN 81 MG ENTERIC TAB PO SCH (09:32)
[2021-01-26] MEDS: METOPROLOL TART 50 MG TAB PO SCH ×2 (09:33→20:47)
[2021-01-26] MEDS: SANTYL OINT 30GM TOP SCH (09:34)
[2021-01-26] MEDS: NYSTATIN 100,000 UNITS/GM TOPICAL PWD 15 GM TOP SCH ×2 (09:34→20:48)
[2021-01-26] MEDS: ENOXAPARIN 40MG/0.4ML SYRINGE (J1650 PER 10MG) SC SCH (09:34)
[2021-01-26] MEDS: DIMETHICONE 2% OINTMENT(VANICREAM) 70GM TUBE TOP SCH ×2 (09:35→20:49)
[2021-01-26] MEDS: SIMVASTATIN 20 MG TAB PO SCH (20:46)
[2021-01-26] MEDS: NIACIN SR (NIASPAN) 500 MG TAB PO SCH (20:46)
[2021-01-26 22:00] VITALS: BP 128/55
[2021-01-27 06:00] VITALS: BP 126/58
[2021-01-27 06:21] LABS: BASO % 0.5 % (0.0-1.0); EOS # 0.6 10^3/uL (0.0-0.5); EOS % 11.1 % (0.0-3.0); HEMATOCRIT 32.1 % (36.0-47.0); HEMOGLOBIN 10.1 g/dl (12.0-15.5); LYMPH # 2.3 10^3/uL (1.5-5.0); LYMPH % 39.5 % (24.0-44.0); MEAN CORPUSCULAR HEMOGLOBIN 31.7 pg (27.0-33.0); MEAN CORPUSCULAR HGB CONC 31.5 g/dl (32.0-36.5); MEAN CORPUSCULAR VOLUME 100.6 fl (80.0-96.0); MONO # 0.7 10^3/uL (0.0-0.8); MONO % 11.4 % (2.0-8.0); NEUTROPHILS # 2.1 10^3/uL (1.5-8.5); NEUTROPHILS % 37.2 % (36.0-66.0); PLATELET COUNT, AUTOMATED 144 10^3/uL (150-450); RED BLOOD COUNT 3.19 10^6/uL (4.00-5.40); WHITE BLOOD COUNT 5.8 10^3/uL (4.0-10.0)
[2021-01-27 06:49] LABS: ALBUMIN 1.9 GM/DL (3.2-5.2); BILIRUBIN,TOTAL 0.3 MG/DL (0.2-1.0); CALCIUM LEVEL 8.5 MG/DL (8.8-10.2); CREATININE FOR GFR 1.51 MG/DL (0.55-1.30); GLOMERULAR FILTRATION RATE 36.5 (>45); POTASSIUM SERUM 3.5 MEQ/L (3.5-5.1); TOTAL PROTEIN 5.3 GM/DL (6.4-8.2)
--- NOTE | 2021-01-27 07:20 | DS.PDOC ---
Discharge Summary General Date of Admission Jan 20, 2021 at 15:21 Discharge Summary PROCEDURES PERFORMED DURING STAY: Bedside incision and drainage of the left heel ulcer. DISCHARGE DIAGNOSES: Orthostatic hypotension causing dizziness Spinal stenosis and dizziness causing falls UTI Left heel infected ulcer SECONDARY DIAGNOSIS: Hypertension Chronic kidney disease Stage 3 Diastolic CHF Morbid obesity with BMI of 44. untreated Obstructive sleep apnea Type 2 diabetes mellitus with peripheral neuropathy Chronic back pain due to degenerative disk disease and spinal stenosis. Paroxysmal Af ib Venous insufficiency with bipedal lymphedema and lipodermatosclerosis. Depression. Hypercholesterolemia. History of gout and hyperuricemia. COMPLICATIONS/CHIEF COMPLAINT: Fall Uti. HOSPITAL COURSE: 70 yo F with a hx of HTN, CKD 3, diastolic CHF, CARLA, DM2 with neuropathy, venous insufficiency, chronic back pain due to degenerative disk disease and spinal stenosis, Morbid obesity with BMI of 44, Chronic Venous insufficiency, bipedal lymphedema, chronic stasis dermatitis, Depression, Hypercholesterolemia, History of gout and hyperuricemia, hx of uterine cancer, was brought to [facility] by EMS after sustaining two falls at home. She reports the first fall to be mechanical, after tripping over a rug, and the other to be related to significant dizziness. Daughter reports that she has been falling frequently and also she was getting more confused. She was noted to have a dirty UA. She was admitted for UTI, dizziness, falls and confusion. She was found to have a left heel infected ulcer which was debrided at the bedside. Work up for vertigo with MRI brain was negative, vestibular tests done by PT was negative. She had orthostatic hypotension which was the cause of her dizziness. the dose of wellbutrin and prozac were reduced which helped with the dizziness also. Urinary Tract Infection urine culture with > 100K E coli Cefdinir Dizziness Due to orthostatic hypotension. no stroke vestibular function was negative for BPPV. Orthostatic vitals were positive reduced doses of wellbutrin and prozac which are known to cause dizziness. No Carotid artery significant obstruction. Falls 2/2 debility and orthostatic hypotension with dizziness and spinal stenosis CT and C spine showed no fractures or bleed reported significant leg weakness on walking, uses walker to ambulate ECHO from 11/01/20: LVEF 60-65%, minimally calcified aortic valve. Nomal TV. Mild calcified MV. Grade 2 diastolic dysfunction. MRI and MRA of the brain negative for any stroke. Infected L heel ulceration Xray of foot and heel no definite OM Had bedside debridement done by podiatry Seen by Dr Land. Will follow dressing recommendations. Arterial US of the left foot did not show any high grade stenosis. On cefdinir. Venous stasis Bilateral LE swelling and erythema No DVT. bilateral lymphedema and chronic venous dermatitis with some bilateral rubor at the shins. trendelenberg position if tolerated, tubigrip stockings. Hx of afib with RVR not on AC monitor electrolytes as per daughter Claire at [phone], she states that her mother discontinued the eliquis on her own. patient denies taking eliquis DM2 ISS, FSBS AC and HS hypoglycemic precautions CKD stage 3 DEB has resolved. creatinine at baseline usually at 1.4 to 1.7 DISCHARGE MEDICATIONS: Please see below. ALLERGIES: Please see below. PHYSICAL EXAMINATION ON DISCHARGE: VITAL SIGNS: Please see below. General: NAD sitting up in bed in no discomfort. HEENT: PERRLA, EOMI, sclerae clear Neck: supple, normal ROM, no JVD Respiratory: reduced inspiratory effort, no wheeze, no rales, no crackles CVS: RRR, normal S1, S2, no murmurs Abdo: soft, no masses, no hepatosplenomegaly, BS+, no rebound tenderness MSK: 2 cm in diameter heel ulceration, < 5 mm in depth, with overlying slough. No granulation tissue seen. Pulses faint. Neuro: no focal neuro deficits, moving all 4 extremities, CN2-12 intact. Strength 5/5 in all 4 extremities. No nystagmus. Psych: calm, cooperative, AAO x 3 LABORATORY DATA: Please see below. RADIOLOGY: CT head wo contrast (01/20/21) No acute intracranial abnormality. No evidence of skull fracture.. CT c spine (01/20/21) Degenerative spondylosis changes. No fracture or other acute bony abnormality.. CXR (01/20/21) Mild cardiomegaly. Otherwise no acute disease. ACTIVITY: [As tolerated]. DIET: Carb consistent. DISCHARGE PLAN: [place] DISPOSITION: . DISCHARGE INSTRUCTIONS: Follow up Dr Land in 1 week PMD in 2 weeks ITEMS TO FOLLOWUP ON ON OUTPATIENT: Wound care. DISCHARGE CONDITION: [Stable]. TIME SPENT ON DISCHARGE: 35 minutes. Vital Signs/I&Os Vital Signs Date Time Temp Pulse Resp B/P (MAP) Pulse Ox O2 Delivery O2 Flow Rate FiO2 01/26/21 09:33 84 130/61 01/26/21 06:00 98.9 18 97 Room Air I&O- Last 24 Hours up to 6 AM 01/26/21 06:00 Intake Total 890 ml Balance 890 ml Laboratory Data Labs 24H Laboratory Tests 2 01/25/21 17:20: Bedside Glucose (Misc Panel) 128H 01/25/21 20:39: Bedside Glucose (Misc Panel) 213H 01/26/21 08:36: Bedside Glucose (Misc Panel) 141H 01/26/21 11:26: Bedside Glucose (Misc Panel) 203H 01/26/21 16:54: FSBS Laboratory Tests Test 01/25/21 17:20 01/25/21 20:39 01/26/21 08:36 01/26/21 11:26 Range/Units Bedside Glucose (Misc Panel) 128 213 141 203 80-115 MG/DL Test 01/26/21 16:54 Range/Units Microbiology Microbiology 01/20/21 Blood Culture - Final, Complete NO GROWTH AFTER 5 DAYS 01/20/21 Respiratory Virus Panel (PCR) (RAMO) - Final, Complete 01/20/21 Blood Culture - Final, Complete NO GROWTH AFTER 5 DAYS 01/20/21 Urine Culture - Final, Complete Escherichia Coli Discharge Medications Scheduled Allopurinol (Allopurinol) 100 Mg Tablet, 100 MG PO DAILY, (Reported) Aspirin (Aspirin EC) 81 Mg Tablet.dr, 81 MG PO DAILY, (Reported) Bupropion Hcl (Bupropion HCl Sr) 100 Mg Tab.sr.12h, 100 MG PO BID Calcitriol (Calcitriol) 0.25 Mcg Capsule, 0.25 MCG PO 3XW, (Reported) MON/WED/FRI Cefdinir (Cefdinir) 300 Mg Capsule, 300 MG PO BID Collagenase Clostridium Hist. (Santyl) 30 Gm Oint...g., 0 DOSE TOP DAILY Docusate Sodium (Docusate Sodium) 100 Mg Capsule, 100 MG PO BID, (Reported) Fluoxetine Hcl (Fluoxetine HCl) 20 Mg Capsule, 20 MG PO DAILY Furosemide (Furosemide) 40 Mg Tablet, 80 MG PO DAILY Gabapentin (Gabapentin) 600 Mg Tablet, 600 MG PO TID, (Reported) Glipizide (Glipizide ER) 5 Mg Tab, 5 MG PO DAILY, (Reported) Magnesium Oxide (Magnesium Oxide) 400 Mg Tab, 400 MG PO 3XW, (Reported) WED, WED, WED Metoprolol Tartrate (Lopressor) 50 Mg Tablet, 50 MG PO BID Niacin (Niacin ER) 1,000 Mg Tab, 1,000 MG PO QHS, (Reported) Nystatin (Nystop) 60 Gm Powder, 0 DOSE TOP BID Simvastatin (Simvastatin) 20 Mg Tablet, 20 MG PO QHS, (Reported) [Dimethicone] 1 DOSE/70 GM OINT, 0 DOSE TOP BID Scheduled PRN Hydrocodone/Acetaminophen (Hydrocodone-Acetamin 5-325 mg) 1 Each Tablet, 1 TAB PO Q6H PRN for PAIN, (Reported) Ondansetron (Ondansetron Odt) 4 Mg Tab.rapdis, 4 MG PO Q6H PRN for NAUSEA OR VOMITING, (Reported) Allergies Coded Allergies: No Known Allergies (Verified Allergy, Unknown, 10/20/19) LUTHER BUI MD Jan 26, 2021 17:10
--- NOTE | 2021-01-27 07:21 | DS.PDOC ---
Discharge Summary General Date of Admission Jan 20, 2021 at 15:21 Date of Discharge 01/27/21 Discharge Summary PROCEDURES PERFORMED DURING STAY: Bedside incision and drainage of the left heel ulcer. DISCHARGE DIAGNOSES: Orthostatic hypotension causing dizziness Spinal stenosis and dizziness causing falls UTI Left heel infected ulcer SECONDARY DIAGNOSIS: Hypertension Chronic kidney disease Stage 3 Diastolic CHF Morbid obesity with BMI of 44. untreated Obstructive sleep apnea Type 2 diabetes mellitus with peripheral neuropathy Chronic back pain due to degenerative disk disease and spinal stenosis. Paroxysmal Af ib Venous insufficiency with bipedal lymphedema and lipodermatosclerosis. Depression. Hypercholesterolemia. History of gout and hyperuricemia. COMPLICATIONS/CHIEF COMPLAINT: Fall Uti. HOSPITAL COURSE: 70 yo F with a hx of HTN, CKD 3, diastolic CHF, CARLA, DM2 with neuropathy, venous insufficiency, chronic back pain due to degenerative disk disease and spinal stenosis, Morbid obesity with BMI of 44, Chronic Venous insufficiency, bipedal lymphedema, chronic stasis dermatitis, Depression, Hypercholesterolemia, History of gout and hyperuricemia, hx of uterine cancer, was brought to [facility] by EMS after sustaining two falls at home. She reports the first fall to be mechanical, after tripping over a rug, and the other to be related to significant dizziness. Daughter reports that she has been falling frequently and also she was getting more confused. She was noted to have a dirty UA. She was admitted for UTI, dizziness, falls and confusion. She was found to have a left heel infected ulcer which was debrided at the bedside. Work up for vertigo with MRI brain was negative, vestibular tests done by PT was negative. She had orthostatic hypotension which was the cause of her dizziness. the dose of wellbutrin and prozac were reduced which helped with the dizziness also. Urinary Tract Infection urine culture with > 100K E coli Cefdinir Dizziness Due to orthostatic hypotension. no stroke vestibular function was negative for BPPV. Orthostatic vitals were positive reduced doses of wellbutrin and prozac which are known to cause dizziness. No Carotid artery significant obstruction. Falls 2/2 debility and orthostatic hypotension with dizziness and spinal stenosis CT and C spine showed no fractures or bleed reported significant leg weakness on walking, uses walker to ambulate ECHO from 11/01/20: LVEF 60-65%, minimally calcified aortic valve. Nomal TV. Mild calcified MV. Grade 2 diastolic dysfunction. MRI and MRA of the brain negative for any stroke. Infected L heel ulceration Xray of foot and heel no definite OM Had bedside debridement done by podiatry Seen by Dr Land. Will follow dressing recommendations. Arterial US of the left foot did not show any high grade stenosis. On cefdinir. Venous stasis Bilateral LE swelling and erythema No DVT. bilateral lymphedema and chronic venous dermatitis with some bilateral rubor at the shins. Trendelenburg position if tolerated, tubigrip stockings. Hx of afib with RVR not on AC monitor electrolytes as per daughter Claire at [phone], she states that her mother discontinued the eliquis on her own. patient denies taking eliquis DM2 ISS, FSBS AC and HS hypoglycemic precautions CKD stage 3 DEB has resolved. creatinine at baseline usually at 1.4 to 1.7 DISCHARGE MEDICATIONS: Please see below. ALLERGIES: Please see below. PHYSICAL EXAMINATION ON DISCHARGE: VITAL SIGNS: Please see below. General: NAD sitting up in bed in no discomfort. HEENT: PERRLA, EOMI, sclerae clear Neck: supple, normal ROM, no JVD Respiratory: reduced inspiratory effort, no wheeze, no rales, no crackles CVS: RRR, normal S1, S2, no murmurs Abdo: soft, no masses, no hepatosplenomegaly, BS+, no rebound tenderness MSK: 2 cm in diameter heel ulceration, < 5 mm in depth, with overlying slough. No granulation tissue seen. Pulses faint. Neuro: no focal neuro deficits, moving all 4 extremities, CN2-[address] ngth 5/5 in all 4 extremities. No nystagmus. Psych: calm, cooperative, AAO x 3 LABORATORY DATA: Please see below. RADIOLOGY: CT head wo contrast (01/20/21) No acute intracranial abnormality. No evidence of skull fracture.. CT c spine (01/20/21) Degenerative spondylosis changes. No fracture or other acute bony abnormality.. CXR (01/20/21) Mild cardiomegaly. Otherwise no acute disease. ACTIVITY: [As tolerated]. DIET: Carb consistent. DISCHARGE PLAN: NH DISPOSITION: . DISCHARGE INSTRUCTIONS: Follow up Dr Land in 1 week PMD in 2 weeks ITEMS TO FOLLOWUP ON ON OUTPATIENT: Wound care. DISCHARGE CONDITION: [Stable]. TIME SPENT ON DISCHARGE: 35 minutes. Vital Signs/I&Os Vital Signs Date Time Temp Pulse Resp B/P (MAP) Pulse Ox O2 Delivery O2 Flow Rate FiO2 01/27/21 06:00 97.5 73 18 126/58 (80) 96 Room Air I&O- Last 24 Hours up to 6 AM 01/27/21 07:00 Intake Total 1100 ml Balance 1100 ml Laboratory Data Labs 24H Laboratory Tests 2 01/26/21 08:36: Bedside Glucose (Misc Panel) 141H 01/26/21 11:26: Bedside Glucose (Misc Panel) 203H 01/26/21 16:54: Bedside Glucose (Misc Panel) 155H 01/26/21 20:01: Bedside Glucose (Misc Panel) 133H 01/27/21 05:38: Anion Gap 5L, Glomerular Filtration Rate 36.5L, Calcium Level 8.5L, Total Bilirubin 0.3, Aspartate Amino Transf (AST/SGOT) 28, Alanine Aminotransferase (ALT/SGPT) 13, Alkaline Phosphatase 94, Total Protein 5.3L, Albumin 1.9L, Albumin/Globulin Ratio 0.6L 01/27/21 05:39: Immature Granulocyte % (Auto) 0.3, Neutrophils (%) (Auto) 37.2, Lymphocytes (%) (Auto) 39.5, Monocytes (%) (Auto) 11.4H, Eosinophils (%) (Auto) 11.1H, Basophils (%) (Auto) 0.5, Neutrophils # (Auto) 2.1, Lymphocytes # (Auto) 2.3, Monocytes # (Auto) 0.7, Eosinophils # (Auto) 0.6H, Basophils # (Auto) 0.0, Nucleated Red Blood Cells % (auto) 0.0 CBC/BMP Laboratory Tests 01/27/21 05:38 01/27/21 05:39 FSBS Laboratory Tests Test 01/26/21 08:36 01/26/21 11:26 01/26/21 16:54 01/26/21 20:01 Range/Units Bedside Glucose (Misc Panel) 141 203 155 133 80-115 MG/DL Microbiology Microbiology 01/20/21 Blood Culture - Final, Complete NO GROWTH AFTER 5 DAYS 01/20/21 Respiratory Virus Panel (PCR) (RAMO) - Final, Complete 01/20/21 Blood Culture - Final, Complete NO GROWTH AFTER 5 DAYS 01/20/21 Urine Culture - Final, Complete Escherichia Coli Discharge Medications Scheduled Allopurinol (Allopurinol) 100 Mg Tablet, 100 MG PO DAILY, (Reported) Aspirin (Aspirin EC) 81 Mg Tablet.dr, 81 MG PO DAILY, (Reported) Bupropion Hcl (Bupropion HCl Sr) 100 Mg Tab.sr.12h, 100 MG PO BID Calcitriol (Calcitriol) 0.25 Mcg Capsule, 0.25 MCG PO 3XW, (Reported) WED/WED/FRI Cefdinir (Cefdinir) 300 Mg Capsule, 300 MG PO BID Collagenase Clostridium Hist. (Santyl) 30 Gm Oint...g., 0 DOSE TOP DAILY Docusate Sodium (Docusate Sodium) 100 Mg Capsule, 100 MG PO BID, (Reported) Fluoxetine Hcl (Fluoxetine HCl) 20 Mg Capsule, 20 MG PO DAILY Furosemide (Furosemide) 40 Mg Tablet, 80 MG PO DAILY Gabapentin (Gabapentin) 600 Mg Tablet, 600 MG PO TID, (Reported) Glipizide (Glipizide ER) 5 Mg Tab, 5 MG PO DAILY, (Reported) Magnesium Oxide (Magnesium Oxide) 400 Mg Tab, 400 MG PO 3XW, (Reported) WED, WED, FRI Metoprolol Tartrate (Lopressor) 50 Mg Tablet, 50 MG PO BID Niacin (Niacin ER) 1,000 Mg Tab, 1,000 MG PO QHS, (Reported) Nystatin (Nystop) 60 Gm Powder, 0 DOSE TOP BID Simvastatin (Simvastatin) 20 Mg Tablet, 20 MG PO QHS, (Reported) [Dimethicone] 1 DOSE/70 GM OINT, 0 DOSE TOP BID Scheduled PRN Hydrocodone/Acetaminophen (Hydrocodone-Acetamin 5-325 mg) 1 Each Tablet, 1 TAB PO Q6H PRN for PAIN, (Reported) Ondansetron (Ondansetron Odt) 4 Mg Tab.rapdis, 4 MG PO Q6H PRN for NAUSEA OR VOM ITING, (Reported) Allergies Coded Allergies: No Known Allergies (Verified Allergy, Unknown, 10/20/19) LUTHER BUI MD Jan 27, 2021 07:21
[2021-01-27] MEDS: HumaLOG INSULIN (NovoLOG) PER UNIT SC SCH (07:30)
[2021-01-27] MEDS: ENOXAPARIN 40MG/0.4ML SYRINGE (J1650 PER 10MG) SC SCH (08:00)
[2021-01-27] MEDS: ASPIRIN 81 MG ENTERIC TAB PO SCH (08:01)
[2021-01-27] MEDS: DOCUSATE SODIUM 100MG CAPSULE PO SCH (08:01)
[2021-01-27] MEDS: buPROPion (WELLBUTRIN SR) 100 MG SR TAB PO SCH (08:01)
[2021-01-27] MEDS: GABAPENTIN 300 MG CAP PO SCH (08:01)
[2021-01-27] MEDS: allopurinoL 100 MG TAB PO SCH (08:01)
[2021-01-27] MEDS: FUROSEMIDE 80 MG TAB PO SCH (08:01)
[2021-01-27] MEDS: NYSTATIN 100,000 UNITS/GM TOPICAL PWD 15 GM TOP SCH (08:02)
[2021-01-27] MEDS: glipiZIDE XL 5 MG TABCR PO SCH (08:02)
[2021-01-27] MEDS: FLUoxetine 20 MG CAP PO SCH (08:02)
[2021-01-27] MEDS: DIMETHICONE 2% OINTMENT(VANICREAM) 70GM TUBE TOP SCH (08:02)
[2021-01-27 08:03] VITALS: BP 129/63
[2021-01-27] MEDS: SANTYL OINT 30GM TOP SCH (08:03)
[2021-01-27] MEDS: METOPROLOL TART 50 MG TAB PO SCH (08:03)
[2021-01-27] MEDS: CEFDINIR 300 MG CAP (OMNICEF) PO SCH (08:06)
== END 2021-01-27 11:25 | DRG 674 ==
LOC: M ED 10:24 → M ED INP 15:21 → M MSPAV 16:58
PROVIDERS: ADMIT Family Medicine; ATTEND Internal Medicine Nephrology
PROC: 0JBR0ZZ Excision of Left Foot Subcutaneous Tissue and Fascia, Open Approach (ICD-10-PCS; principal; 2021-01-22)
DX: N17.9 Acute kidney failure, unspecified (principal); I50.32 Chronic diastolic (congestive) heart failure; I13.0 Hypertensive heart and chronic kidney disease with heart failure and stage 1 through stage 4 chronic kidney disease, or unspecified chronic kidney disease; Z68.42 Body mass index [BMI] 45.0-49.9, adult; L97.429 Non-pressure chronic ulcer of left heel and midfoot with unspecified severity; N39.0 Urinary tract infection, site not specified; N18.30 Chronic kidney disease, stage 3 unspecified; G47.33 Obstructive sleep apnea (adult) (pediatric); E11.22 Type 2 diabetes mellitus with diabetic chronic kidney disease; E11.42 Type 2 diabetes mellitus with diabetic polyneuropathy; R29.6 Repeated falls; E66.01 Morbid (severe) obesity due to excess calories; E11.621 Type 2 diabetes mellitus with foot ulcer; I95.1 Orthostatic hypotension; R42 Dizziness and giddiness; I89.0 Lymphedema, not elsewhere classified; B96.20 Unspecified Escherichia coli [E. coli] as the cause of diseases classified elsewhere; F32.9 Major depressive disorder, single episode, unspecified; I48.0 Paroxysmal atrial fibrillation; Z66 Do not resuscitate; I87.2 Venous insufficiency (chronic) (peripheral); R53.81 Other malaise; M10.9 Gout, unspecified; Z85.42 Personal history of malignant neoplasm of other parts of uterus; Z90.710 Acquired absence of both cervix and uterus; Z90.49 Acquired absence of other specified parts of digestive tract; Z87.81 Personal history of (healed) traumatic fracture; Z79.82 Long term (current) use of aspirin; Z79.84 Long term (current) use of oral hypoglycemic drugs; Z79.899 Other long term (current) drug therapy

== ENCOUNTER → 2021-03-31 | Outpatient (REF) | payer MEDICARE, MEDICAID ==
[~2021-03-31] MED LIST changes: +BUPR10TASR PO; +Dimethicone TOP; +FLUO20CA22 PO; +LOPR1TAB6 PO; +MACR100C43 PO; +NYST10006 TOP; +ONDA4TAB6 PO; +SANT250O8 TOP
[2021-03-31 16:03] LABS: BASO # 0.1 10^3/uL (0.0-0.2); EOS # 0.6 10^3/uL (0.0-0.5); EOS % 11.3 % (0.0-3.0); HEMATOCRIT 32.5 % (36.0-47.0); HEMOGLOBIN 10.2 g/dl (12.0-15.5); LYMPH # 1.9 10^3/uL (1.5-5.0); LYMPH % 37.9 % (24.0-44.0); MEAN CORPUSCULAR HGB CONC 31.4 g/dl (32.0-36.5); MEAN CORPUSCULAR VOLUME 98.8 fl (80.0-96.0); MONO # 0.6 10^3/uL (0.0-0.8); MONO % 11.9 % (2.0-8.0); NEUTROPHILS # 1.9 10^3/uL (1.5-8.5); NEUTROPHILS % 37.5 % (36.0-66.0); PLATELET COUNT, AUTOMATED 228 10^3/uL (150-450); RED BLOOD COUNT 3.29 10^6/uL (4.00-5.40)
[2021-03-31 16:27] LABS: C REACTIVE PROTEIN QUANTITATIV 5.07 MG/DL (0.00-0.30); CALCIUM LEVEL 8.7 MG/DL (8.8-10.2); CREATININE FOR GFR 1.65 MG/DL (0.55-1.30); GLOMERULAR FILTRATION RATE 32.8 (>45); POTASSIUM SERUM 4.1 MEQ/L (3.5-5.1)
[2021-03-31 18:52] LABS: ERYTHROCYTE SEDIMENTATION RATE 73 mm/hr (0-30)
== END ==
LOC: M LAB REF 15:38
PROVIDERS: ATTEND Internal Medicine Infectious Disease
DX: M86.172 Other acute osteomyelitis, left ankle and foot (principal); E11.621 Type 2 diabetes mellitus with foot ulcer

== ENCOUNTER → 2021-04-21 | Outpatient (REF) | payer MEDICARE, MEDICAID ==
[2021-04-21 16:36] LABS: HEMOGLOBIN A1c 6.3 %
== END ==
LOC: M LAB REF 16:02
PROVIDERS: ATTEND Physician Assistant
DX: E11.22 Type 2 diabetes mellitus with diabetic chronic kidney disease (principal)

== ENCOUNTER → 2021-04-21 | Outpatient (REF) | payer MEDICARE, MEDICAID ==
[2021-04-21 16:21] LABS: BASO % 0.4 % (0.0-1.0); EOS # 0.6 10^3/uL (0.0-0.5); EOS % 13.4 % (0.0-3.0); HEMATOCRIT 35.2 % (36.0-47.0); HEMOGLOBIN 11.2 g/dl (12.0-15.5); LYMPH # 1.8 10^3/uL (1.5-5.0); LYMPH % 39.1 % (24.0-44.0); MEAN CORPUSCULAR HEMOGLOBIN 30.7 pg (27.0-33.0); MEAN CORPUSCULAR HGB CONC 31.8 g/dl (32.0-36.5); MEAN CORPUSCULAR VOLUME 96.4 fl (80.0-96.0); MONO # 0.5 10^3/uL (0.0-0.8); MONO % 11.4 % (2.0-8.0); NEUTROPHILS # 1.6 10^3/uL (1.5-8.5); NEUTROPHILS % 35.5 % (36.0-66.0); PLATELET COUNT, AUTOMATED 157 10^3/uL (150-450); RED BLOOD COUNT 3.65 10^6/uL (4.00-5.40); WHITE BLOOD COUNT 4.5 10^3/uL (4.0-10.0)
[2021-04-21 16:41] LABS: C REACTIVE PROTEIN QUANTITATIV 2.06 MG/DL (0.00-0.30); CALCIUM LEVEL 8.7 MG/DL (8.8-10.2); CREATININE FOR GFR 1.85 MG/DL (0.55-1.30); GLOMERULAR FILTRATION RATE 28.8 (>45); POTASSIUM SERUM 4.1 MEQ/L (3.5-5.1)
[2021-04-21 16:49] LABS: ERYTHROCYTE SEDIMENTATION RATE 69 mm/hr (0-30)
== END ==
LOC: M LAB REF 15:59
PROVIDERS: ATTEND Internal Medicine Infectious Disease
DX: M86.172 Other acute osteomyelitis, left ankle and foot (principal); E11.621 Type 2 diabetes mellitus with foot ulcer; E11.22 Type 2 diabetes mellitus with diabetic chronic kidney disease

== ENCOUNTER 2021-04-29 17:18 | Emergency (ER) | payer MEDICARE, MEDICAID ==
[~2021-04-29] VITALS: Ht 152.4 cm; Wt 100.0 kg
[2021-04-29] MEDS ORDERED: GABA600T4 PO (18:30)
[2021-04-29] MEDS ORDERED: NS 1,000 ML IV ONE (18:45)
[2021-04-29] MEDS ORDERED: ONDANSETRON 4MG/2ML VIAL IV ONE (18:45)
[2021-04-29 19:22] LABS: BASO % 0.4 % (0.0-1.0); EOS # 0.3 10^3/uL (0.0-0.5); EOS % 7.2 % (0.0-3.0); HEMATOCRIT 38.8 % (36.0-47.0); HEMOGLOBIN 12.4 g/dl (12.0-15.5); LYMPH # 1.6 10^3/uL (1.5-5.0); LYMPH % 34.7 % (24.0-44.0); MEAN CORPUSCULAR HEMOGLOBIN 30.9 pg (27.0-33.0); MEAN CORPUSCULAR VOLUME 96.8 fl (80.0-96.0); MONO # 0.7 10^3/uL (0.0-0.8); MONO % 14.4 % (2.0-8.0); NEUTROPHILS % 43.1 % (36.0-66.0); PLATELET COUNT, AUTOMATED 131 10^3/uL (150-450); RED BLOOD COUNT 4.01 10^6/uL (4.00-5.40); WHITE BLOOD COUNT 4.6 10^3/uL (4.0-10.0)
[2021-04-29 19:52] LABS: ALBUMIN 2.2 GM/DL (3.2-5.2); ALT/SGPT 18 U/L (12-78); BILIRUBIN,DIRECT 0.4 MG/DL (0.0-0.2); BILIRUBIN,TOTAL 1.1 MG/DL (0.2-1.0); BLOOD UREA NITROGEN 13 MG/DL (7-18); CALCIUM LEVEL 9.7 MG/DL (8.8-10.2); CARBON DIOXIDE LEVEL 30 MEQ/L (21-32); CHLORIDE LEVEL 112 MEQ/L (98-107); CK-MB VALUE MASS 1.6 NG/ML (<3.6); CPK CREATINE PHOSPHOKINASE 41 U/L (26-192); CREATININE FOR GFR 1.25 MG/DL (0.55-1.30); GLOMERULAR FILTRATION RATE 45.2 (>45); GLUCOSE, FASTING 137 MG/DL (70-100); LIPASE < 10 U/L (73-393); POTASSIUM SERUM 4.1 MEQ/L (3.5-5.1); SODIUM LEVEL 147 MEQ/L (136-145); TROPONIN I 0.02 NG/ML (< 0.10)
--- NOTE | 2021-04-29 21:53 | REPVR ---
PROCEDURE INFORMATION: Exam: US Abdomen, Limited; Right Upper Quadrant Exam date and time: 04/29/2021 8:25 PM Age: 71 years old Clinical indication: Vomiting TECHNIQUE: Imaging protocol: US abdomen. Real time ultrasound with image documentation. Limited exam focused on the right upper quadrant. COMPARISON: GALLBLADDER US 11/29/2019 7:54 PM FINDINGS: Liver: Normal appearing liver with no evidence of biliary dilatation. Gallbladder: There are more than 30 calcified gallstones in the dependent portion of the gallbladder with posterior shadowing and sludge. The gallbladder wall measures approximately 2 mm in thickness. Common bile duct: The common bile duct is normal in size measuring 3 mm. Pancreas: The head and body of the pancreas are not enlarged. The tail of the pancreas is obscured by bowel gas. Right kidney: The right kidney measures 9.3 cm in length by 4 cm in thickness and there is no hydronephrosis. There is a tiny cyst of the lower pole of the right kidney. IMPRESSION: 1. Cholecystitis with over 30 round calcified gallstones in the dependent portion of the gallbladder. 2. No biliary dilatation. Electronically signed by: Serafin Howell On 04/29/2021 21:52:33 PM
[2021-04-29 22:45] VITALS: BP 151/78
[2021-04-29] MEDS ORDERED: ONDA4TAB6 PO (22:46)
== END 2021-04-29 22:59 | disposition home or self-care (01) ==
LOC: M ED 17:18
DX: K80.20 Calculus of gallbladder without cholecystitis without obstruction (principal); R19.7 Diarrhea, unspecified; I11.0 Hypertensive heart disease with heart failure; I50.9 Heart failure, unspecified; K21.9 Gastro-esophageal reflux disease without esophagitis; E78.5 Hyperlipidemia, unspecified; F41.9 Anxiety disorder, unspecified; F32.9 Major depressive disorder, single episode, unspecified; E11.40 Type 2 diabetes mellitus with diabetic neuropathy, unspecified; G47.33 Obstructive sleep apnea (adult) (pediatric); N18.30 Chronic kidney disease, stage 3 unspecified; E11.22 Type 2 diabetes mellitus with diabetic chronic kidney disease; M48.00 Spinal stenosis, site unspecified; Z79.899 Other long term (current) drug therapy; Z79.82 Long term (current) use of aspirin
CPT/HCPCS: 76705; 80048; 80076; 82550; 82553; 83690; 84484; 85025; 96361; 96374; 99284; J2405

== ENCOUNTER → 2021-05-09 | Outpatient (CLI) | payer MEDICARE, MEDICAID ==
--- NOTE | 2021-05-12 02:54 | REP ---
INDICATION: GROSS HEMATURIA COMPARISON: 10/31/2020 TECHNIQUE: Axial noncontrast images from the lung bases to the pubic symphysis with coronal and sagittal reformations. This CT examination was performed using the following dose reduction techniques: Automated exposure control, adjustment of mA and/or kv according to the patient's size, and use of iterative reconstruction technique. FINDINGS: Lung bases demonstrate relatively chronic interstitial changes although subtle superimposed acute airspace disease cannot be excluded and requires correlation. No focal consolidation or effusion. Visualized heart and pericardium are normal. Liver, spleen, pancreas, bilateral adrenal glands are normal. Cholelithiasis noted without acute cholecystitis. Kidneys demonstrate symmetric age-related changes without perinephric stranding, hydroureteronephrosis, intrarenal or obstructing ureteral calculi. The enteric system is unremarkable and without obstruction or acute inflammatory process. Scattered sigmoid diverticula noted. Pelvis demonstrates normal bladder and evidence for prior hysterectomy. No ascites. No free air. No adenopathy. No focal inflammatory stranding. Abdominal aorta without aneurysm. Musculoskeletal structures are intact and without acute osseous abnormality. IMPRESSION: No acute abdominopelvic pathology appreciated. Cholelithiasis. Presumed chronic changes at the lung bases although early acute infiltrate cannot be excluded. <Electronically signed by Aakash Richard > 05/12/21 [id number]
== END ==
LOC: M RAD 17:06
PROVIDERS: ATTEND Nurse Practitioner Family
DX: K80.20 Calculus of gallbladder without cholecystitis without obstruction (principal); R31.0 Gross hematuria

== ENCOUNTER → 2021-06-17 | Outpatient (CLI) | payer MEDICARE, OTHER ==
[~2021-06-17] MED LIST changes: +COLC0.6T47 PO; +FLUO40CA; +OMEP-221; +OXYC1TAB23 PO
--- NOTE | 2021-06-17 13:55 | REP ---
INDICATION: GROSS HEMATURIA. COMPARISON: Comparison radiograph January 20, 2021. TECHNIQUE: Three views... FINDINGS: The lungs are somewhat hyperinflated but clear. Pleural angles are sharp. The heart is mildly enlarged unchanged from the comparison study. Pulmonary vasculature is not increased. No evidence of pleural effusion or pulmonary edema is seen. There is old posttraumatic deformity of the proximal humerus on the left. No acute bony abnormality. IMPRESSION: No active disease. Mild cardiomegaly. Otherwise negative.. <Electronically signed by Michael Ang > 06/17/21 [id number]
[2021-06-17 17:46] LABS: HEMATOCRIT 33.2 % (36.0-47.0); HEMOGLOBIN 10.7 g/dl (12.0-15.5); MEAN CORPUSCULAR HEMOGLOBIN 30.7 pg (27.0-33.0); MEAN CORPUSCULAR HGB CONC 32.2 g/dl (32.0-36.5); MEAN CORPUSCULAR VOLUME 95.1 fl (80.0-96.0); PLATELET COUNT, AUTOMATED 201 10^3/uL (150-450); RED BLOOD COUNT 3.49 10^6/uL (4.00-5.40); WHITE BLOOD COUNT 4.5 10^3/uL (4.0-10.0)
[2021-06-17 18:15] LABS: ALBUMIN 2.3 GM/DL (3.2-5.2); BILIRUBIN,TOTAL 0.7 MG/DL (0.2-1.0); CALCIUM LEVEL 8.9 MG/DL (8.8-10.2); CREATININE FOR GFR 1.48 MG/DL (0.55-1.30); GLOMERULAR FILTRATION RATE 37.2 (>45); POTASSIUM SERUM 3.8 MEQ/L (3.5-5.1); TOTAL PROTEIN 5.7 GM/DL (6.4-8.2)
== END ==
LOC: M CLY 11:30
PROVIDERS: ATTEND Urology
DX: N32.9 Bladder disorder, unspecified (principal); R31.0 Gross hematuria; I51.7 Cardiomegaly

== ENCOUNTER → 2021-06-20 | Outpatient (REF) | payer MEDICARE, OTHER ==
[2021-06-20 19:18] LABS: MAGNESIUM LEVEL 1.3 MG/DL (1.8-2.4)
[2021-06-23 10:42] LABS: PTH INTACT 49.1 PG/ML (18.5-88.0)
== END ==
LOC: M LAB REF 18:11
PROVIDERS: ATTEND Nurse Practitioner Family
DX: E83.42 Hypomagnesemia (principal); N25.81 Secondary hyperparathyroidism of renal origin

== ENCOUNTER → 2021-06-28 | Outpatient (CLI) | payer MEDICARE, MEDICAID, OTHER | LOC: M LABSMTC 10:06 | PROVIDERS: ATTEND Anesthesiology | DX: Z01.812 Encounter for preprocedural laboratory examination (principal); Z20.822 Contact with and (suspected) exposure to COVID-19 ==

== ENCOUNTER 2021-07-03 07:51 | Day surgery (SDC) | payer MEDICAID, OTHER ==
[~2021-07-03] VITALS: Ht 152.4 cm; Wt 95.6 kg
[~2021-07-03 07:51] MED LIST changes: +CIPROFLOXACIN 400 MG in IV 1 EA IV ONE; +UNRESOLVED CLARIFICATION ENTRY XX SCH
[2021-07-03] MEDS ORDERED: POTA20EL (08:55)
[2021-07-03] MEDS ORDERED: BUPR150T5 (08:55)
[2021-07-03] MEDS ORDERED: ROCURONIUM BROMIDE 50 MG/5 ML VIAL As Ordered ONE (08:56)
[2021-07-03] MEDS ORDERED: SUGAMMADEX SODIUM 500 MG/5 ML VIAL (BRIDION) As Ordered ONE (08:56)
[2021-07-03] MEDS ORDERED: fentaNYL 100 MCG/2 ML INJECTION (J3010) As Ordered ONE (08:56)
[2021-07-03] MEDS ORDERED: LIDOCAINE 2% 100MG/5ML SDV (FOR ANES.) As Ordered ONE (08:56)
[2021-07-03] MEDS ORDERED: ACETAMINOPHEN 1000MG 100ML IV BTL (OFIRMEV) (J0131 PER 10MG) As Ordered ONE (08:56)
[2021-07-03] MEDS ORDERED: MIDAZOLAM INJ 2MG/2ML VIAL (J2250 PER 1MG) As Ordered ONE (08:56)
[2021-07-03] MEDS ORDERED: ONDANSETRON 4MG/2ML VIAL As Ordered ONE (08:56)
[2021-07-03] MEDS ORDERED: propofoL 200 MG/20 ML VIAL As Ordered ONE (08:56)
[2021-07-03] MEDS ORDERED: dexameTHASONE 4 MG/ML 1ML VIAL (J1100 PER 1MG) As Ordered ONE (08:56)
[2021-07-03] MEDS ORDERED: LR 1,000 ML IV ONE (09:00)
--- NOTE | 2021-07-03 09:29 | ROOPDOC ---
[facility] Report Of Operation Report of Operation DATE OF PROCEDURE: 07/03/21 PREPROCEDURE DIAGNOSES: [bladder lesion]. POSTPROCEDURE DIAGNOSES: [same]. PROCEDURE PERFORMED: [turbt <2.5cm]. SURGEON: [Antonio Hutchison], RECREATION COUNSELOR: [none], ANESTHESIA: [general lma]. ESTIMATED BLOOD LOSS: Approximately [0] mL. COMPLICATIONS: [none]. REMARKS: [71yo wf. Gross hematuria. Cysto demonstrated bladder lesion left wall. Today's surgery arranged. Informed consent obtained. Risks discussed including infection, pain, bleeding, scarring, failure of surgery, need for more surgery, injury to gu tract including peforation, recurrence of lesion and others.]. FINDINGS: SPECIMENS REMOVED: [bladder lesion] PROCEDURE NOTE: . DESCRIPTION OF PROCEDURE: . VISH HUTCHISON MD Jul 03, 2021 09:29
[2021-07-03] MEDS ORDERED: BACT800T5 PO (10:04)
[2021-07-03] MEDS ORDERED: PYRI1TAB5 PO (10:04)
[2021-07-03] MEDS ORDERED: LR 1,000 ML IV SCH (10:45)
[2021-07-03] MEDS ORDERED: oxyCODONE 5MG TAB PO PRN (10:45)
[2021-07-03] MEDS ORDERED: ONDANSETRON 4MG/2ML VIAL IV PRN (10:45)
[2021-07-03] MEDS ORDERED: MEPERIDINE INJ 25 MG/ML VIAL (J2175) IV PRN (10:45)
[2021-07-03] MEDS ORDERED: fentaNYL 100 MCG/2 ML INJECTION (J3010) IV PRN (10:45)
[2021-07-03 11:50] VITALS: BP 134/63
== END 2021-07-03 11:50 | disposition home or self-care (01) ==
LOC: M SDC 07:51
PROVIDERS: ATTEND Urology
DX: D30.3 Benign neoplasm of bladder (principal); I11.0 Hypertensive heart disease with heart failure; I50.9 Heart failure, unspecified; E78.00 Pure hypercholesterolemia, unspecified; R60.0 Localized edema; E11.22 Type 2 diabetes mellitus with diabetic chronic kidney disease; M10.9 Gout, unspecified; M19.90 Unspecified osteoarthritis, unspecified site; F41.9 Anxiety disorder, unspecified; F32.9 Major depressive disorder, single episode, unspecified; M81.0 Age-related osteoporosis without current pathological fracture; Z92.3 Personal history of irradiation; G47.30 Sleep apnea, unspecified; N18.31 Chronic kidney disease, stage 3a; Z85.42 Personal history of malignant neoplasm of other parts of uterus; Z90.49 Acquired absence of other specified parts of digestive tract; Z79.899 Other long term (current) drug therapy; Z79.82 Long term (current) use of aspirin; Z79.891 Long term (current) use of opiate analgesic; Z79.2 Long term (current) use of antibiotics
CPT/HCPCS: 52234; 88307; J0131; J0744; J1100; J2250; J2405; J3010

== ENCOUNTER → 2021-09-25 | Outpatient (REF) | payer OTHER, MEDICARE, MEDICAID ==
[~2021-09-25] MED LIST changes: +BACT800T5 PO; +BUPR150T5; -CIPROFLOXACIN 400 MG in IV 1 EA IV ONE; +POTA20EL; +PYRI1TAB5 PO; -UNRESOLVED CLARIFICATION ENTRY XX SCH
== END ==
LOC: M LAB REF 13:04
PROVIDERS: ATTEND Nurse Practitioner Family
DX: E83.42 Hypomagnesemia (principal)

== ENCOUNTER 2021-11-14 10:51 | Inpatient (IN) | payer MEDICARE, MEDICAID ==
[~2021-11-14] VITALS: Ht 152.4 cm; Wt 83.0 kg
[~2021-11-14 10:51] MED LIST changes: -BUPR150T5; -FLUO40CA
--- NOTE | 2021-11-14 11:46 | REP ---
INDICATION: DYSPNEA/COUGH COMPARISON: 06/17/2021 TECHNIQUE: Portable AP view of the chest FINDINGS: Diffuse bilateral opacities. Differential diagnosis includes multifocal pneumonia, COVID-19 pulmonary disease and early CHF. IMPRESSION: Diffuse bilateral airspace disease. Differential diagnosis includes early CHF, multifocal pneumonia, and COVID-19 pulmonary disease. <Electronically signed by Aakash Richard > 11/14/21 2018
[2021-11-14 11:52] LABS: VENOUS BASE EXCESS 0.1 (-2.0-2.0); VENOUS HCO3 26.7 MEQ/L (23.0-27.0); VENOUS O2 SATURATION 82.2 % (60.0-80.0); VENOUS PARTIAL PRESSURE CO2 51.3 mmHg (38.0-50.0); VENOUS PARTIAL PRESSURE O2 50.1 mmHg (30.0-50.0); VENOUS PH 7.334 UNITS (7.330-7.430); VENOUS STANDARD HCO3 24.3 MEQ/L; VENOUS TOTAL CO2 28.3 MEQ/L (24.0-28.0)
[2021-11-14 11:57] LABS: BASO % 0.6 % (0.0-1.0); EOS # 0.1 10^3/uL (0.0-0.5); EOS % 2.2 % (0.0-3.0); HEMATOCRIT 38.3 % (36.0-47.0); LYMPH # 1.2 10^3/uL (1.5-5.0); LYMPH % 32.3 % (24.0-44.0); MEAN CORPUSCULAR HEMOGLOBIN 32.2 pg (27.0-33.0); MEAN CORPUSCULAR HGB CONC 31.3 g/dl (32.0-36.5); MEAN CORPUSCULAR VOLUME 102.7 fl (80.0-96.0); MONO # 0.3 10^3/uL (0.0-0.8); MONO % 8.6 % (2.0-8.0); PLATELET COUNT, AUTOMATED 158 10^3/uL (150-450); RED BLOOD COUNT 3.73 10^6/uL (4.00-5.40); WHITE BLOOD COUNT 3.6 10^3/uL (4.0-10.0)
[2021-11-14 12:26] LABS: ALBUMIN 2.7 GM/DL (3.2-5.2); BILIRUBIN,DIRECT 0.3 MG/DL (0.0-0.2); BILIRUBIN,TOTAL 0.8 MG/DL (0.2-1.0); CALCIUM LEVEL 9.7 MG/DL (8.8-10.2); CREATININE FOR GFR 0.98 MG/DL (0.55-1.30); GLOMERULAR FILTRATION RATE 59.9 (>45); POTASSIUM SERUM 4.4 MEQ/L (3.5-5.1); THYROID STIMULATING HORMONE 2.12 uIU/ML (0.358-3.740); TOTAL PROTEIN 6.5 GM/DL (6.4-8.2)
[2021-11-14] MEDS ORDERED: TIZA2TA PO (13:06)
[2021-11-14] MEDS ORDERED: NITR100C2 PO (13:06)
[2021-11-14] MEDS ORDERED: FURO40TA2 PO (13:06)
[2021-11-14] MEDS ORDERED: POTA20TA6 PO (13:06)
--- NOTE | 2021-11-14 13:15 | REP ---
INDICATION: sob COMPARISON: 10/31/2020 TECHNIQUE: Axial noncontrast images from the thoracic inlet to the upper abdomen with coronal and sagittal reformations. This CT examination was performed using the following dose reduction techniques: Automated exposure control, adjustment of mA and/or kv according to the patient's size, and use of iterative reconstruction technique. FINDINGS: Findings include bilateral patchy opacities, moderate to large bilateral pleural effusions, and scattered ill-defined atelectasis/consolidations along with prominent pulmonary vasculature, cephalization and increased interstitial markings. Mild cardiomegaly suggested along with small pericardial effusion. Further evaluation of the mediastinum suggests adenopathy. Atherosclerotic changes to the thoracic aorta and coronary arteries noted. Thyroid gland is normal by noncontrast CT. Surrounding musculoskeletal structures demonstrate presumed degenerative changes. IMPRESSION: 1. Findings described above suggest CHF. Differential diagnosis cannot exclude multifocal pneumonia. <Electronically signed by Aakash Richard > 11/14/21 [id number]
[2021-11-14] MEDS ORDERED: FUROSEMIDE 100MG/10ML VIAL (J1940) IV ONE (13:30)
[2021-11-14] MEDS ORDERED: DEXTROSE 50% 50 ML SYRINGE IV PRN (14:40)
[2021-11-14] MEDS ORDERED: GLUCOSE 4GM CHEW TABLET PO PRN (14:40)
[2021-11-14] MEDS ORDERED: GLUCAGON INJ 1MG VIAL SC PRN (14:40)
--- NOTE | 2021-11-14 14:48 | HPEPDOC ---
General Date of Admission Nov 14, 2021 at 14:03 Date of Service: Nov 14, 2021 Chief Complaint The patient is a 71-year-old female admitted with a reason for visit of Acute Chf. History of Present Illness Mrs. Muir is a 71-year-old female with morbid obesity and heart failure with preserved ejection fraction who presents with worsening shortness of breath. Just before Thanksgi, patient's daughter . It was sudden and unexpected and she has been feeling depressed since then. She is upset that her appetites been poor and she has not eaten or drink a lot. Denies salty foods or canned soup. She normally eats cold cereal. Since her daughter's , she has been having progressively worsening shortness of breath. Denies any fever or chest pain. She also reports having orthopnea. Today she could not catch her breath she came into the ED for evaluation. While here, she has been afebrile. No tachycardia and she is hypertensive. Per ED, she required 2 L of oxygen. She was given 80 mg of IV Lasix in the ED. EKG did not have any changes compared to prior EKG and initial troponin negative. Otherwise, BNP was elevated at 27,282. Patient is still grieving for the loss of her daughter. Patient will be admitted for acute decompensated heart failure with preserved ejection fraction. Home Medications Scheduled Allopurinol (Allopurinol) 100 Mg Tablet, 100 MG PO DAILY, (Reported) Bupropion Hcl (Bupropion HCl Sr) 150 Mg Tab.sr.12h, 150 MG PO BID, (Reported) Calcitriol (Calcitriol) 0.25 Mcg Capsule, 0.25 MCG PO 3XW, (Reported) MON/WED/WED Colchicine (Colchicine) 0.6 Mg Tablet, 0.6 MG PO DAILY, (Reported) Docusate Sodium (Docusate Sodium) 100 Mg Capsule, 100 MG PO BID, (Reported) Fluoxetine Hcl (Fluoxetine HCl) 40 Mg Capsule, 40 MG PO DAILY, (Reported) Furosemide (Furosemide) 40 Mg Tablet, 40 MG PO BID, (Reported) Gabapentin (Gabapentin) 600 Mg Tablet, 600 MG PO TID, (Reported) Glipizide (Glipizide ER) 5 Mg Tab, 5 MG PO DAILY, (Reported) Magnesium Oxide (Magnesium Oxide) 400 Mg Tab, 400 MG PO 3XW, (Reported) MON, WED, FRI Metoprolol Tartrate (Metoprolol Tartrate) 100 Mg Tablet, 100 MG PO DAILY, (Reported) Niacin (Niacin ER) 1,000 Mg Tab, 1,000 MG PO QHS, (Reported) Nitrofurantoin Monohyd/M-Cryst (Nitrofurantoin Woodward-Mcr 100 mg) 100 Mg Capsule, 100 MG PO DAILY, (Reported) Potassium Chloride (Potassium Chloride) 20 Meq Tab.er.prt, 40 MEQ PO DAILY, (Reported) Simvastatin (Simvastatin) 20 Mg Tablet, 20 MG PO QHS, (Reported) Tizanidine HCl (Tizanidine HCl) 2 Mg Tablet, 2 MG PO QHS, (Reported) Allergies Coded Allergies: No Known Allergies (Verified Allergy, Unknown, 06/24/21) Past Medical History Medical History 1. Hypertension 2. Chronic kidney disease Stage 3 3. Diastolic CHF 4. Obstructive sleep apnea 5. Type 2 diabetes mellitus with peripheral neuropathy 6. Chronic back pain due to degenerative disk disease and spinal stenosis. 7. Morbid obesity with BMI of 48. 8. Venous insufficiency. 9. Depression. 10. Hypercholesterolemia. 11. History of gout and hyperuricemia. Surgical History 1. History of uterine cancer, status post ANNIE/BSO. 2. Status post appendectomy. 3. Tonsillectomy. 4. Right elbow surgery due to fracture. Social History * Smoker: non-smoker Alcohol: Denies Drugs: denies A-FIB/CHADSVASC A-FIB History Current/History of A-Fib/PAF?: Yes Current PO Anticoag Therapy: No Review of Systems Constitutional: Denies: Chills, Fever Eyes: Denies: Pain ENT: Denies: Sore Throat Skin: Denies: Rash Pulmonary: Reports: Dyspnea, Cough (sometimes productive with yellow sputum) Cardiovascular: Reports: Orthopnea; Denies: Chest Pain Gastrointestinal: Denies: Abdominal Pain, Diarrhea Genitourinary: Denies: Dysuria Hematologic: Denies: Bruising Neurological: Denies: Numbness Psych: Reports: Anxiety, Depression Physical Examination General Exam: Positive: Alert, Cooperative Eye Exam: Positive: EOMI; Negative: Sclera icteric ENT Exam: Positive: Atraumatic Neck Exam: Positive: Supple Chest Exam: Positive: Clear to auscultation, Diminished Heart Exam: Positive: Rate Normal, Regular Rhythm Abdomen Exam: Positive: Normal bowel sounds, Soft; Negative: Tenderness Extremity Exam: Positive: Edema (Non pitting) Neuro Exam: Positive: Normal Speech, Cranial Nerves 3-12 NL Psych Exam: Positive: Mental status NL, Mood NL Vital Signs Vital Signs Date Time Temp Pulse Resp B/P (MAP) Pulse Ox O2 Delivery O2 Flow Rate FiO2 11/14/21 14:06 74 100 Nasal Cannula 2.0 11/14/21 11:15 171/81 (111) 11/14/21 11:00 97.9 20 Laboratory Data Labs 24H Laboratory Tests 2 11/14/21 11:15: Immature Granulocyte % (Auto) 0.3, Neutrophils (%) (Auto) 56.0, Lymphocytes (%) (Auto) 32.3, Monocytes (%) (Auto) 8.6H, Eosinophils (%) (Auto) 2.2, Basophils (%) (Auto) 0.6, Neutrophils # (Auto) 2.0, Lymphocytes # (Auto) 1.2L, Monocytes # (Auto) 0.3, Eosinophils # (Auto) 0.1, Basophils # (Auto) 0.0, Nucleated Red Blood Cells % (auto) 0.0, Blood Gas Bicarbonate Standard 24.3, Venous Blood pH 7.334, Venous Blood Partial Pressure CO2 51.3H, Venous Blood Partial Pressure O2 50.1H, Venous Blood Total Carbon Dioxide 28.3H, Venous Blood HCO3 26.7, Venous Blood Oxygen Saturation 82.2H, Venous Blood Base Excess 0.1, Anion Gap 8, Glomerular Filtration Rate 59.9, Lactic Acid Level 1.3, Calcium Level 9.7, Total Bilirubin 0.8, Direct Bilirubin 0.3H, Aspartate Amino Transf (AST/SGOT) 28, Alanine Aminotransferase (ALT/SGPT) 12, Alkaline Phosphatase 193H, KF-Whu-U-Type Natriuretic Peptide 70294C, Total Protein 6.5, Albumin 2.7L, Albumin/Globulin Ratio 0.7L, Thyroid Stimulating Hormone (TSH) 2.120 11/14/21 12:04: POC Troponin I (Misc) 0.02 CBC/BMP Laboratory Tests 11/14/21 11:15 Microbiology Microbiology 11/14/21 Respiratory Virus Panel (PCR) (RAMO) - Final, Complete 11/14/21 Blood Culture, Received Pending 11/14/21 Blood Culture, Received Pending Assessment/Plan Mrs. Muir is a 71-year-old female with morbid obesity and heart failure with preserved ejection fraction who presents with worsening shortness of breath. Unclear etiology to her heart failure. She denies overabundance of salt or fluids. Question if her cereal or milk salty. Other possibility would be an acute injury to the heart causing reduced ejection fraction. Order for echocardiogram and repeat troponins. Another possibility would be Takotsubo's cardiomyopathy given her emotional distress of her daughter's recent passing. Echocardiogram ordered. Plan / VTE VTE Prophylaxis Ordered?: Yes Plan Plan 1. Acute decompensated heart failure with preserved ejection fraction Patient reports orthopnea and worsening shortness of breath since her daughter We will increase patient's Lasix from 40 p.o. twice a day to 40 IV twice a day I's and O's and daily weights 2 g sodium diet We will evaluate with troponins and echocardiogram 2. Grieving Patient's is grieving, she lost her daughter just before Thanksgiving Patient also lost her around Thanksgiving as well She has had shortness of breath since her daughter Question if she had Takotsubo's cardiomyopathy. Echocardiogram ordered Continue bupropion and fluoxetine 3. Diabetes mellitus Add on carbohydrate consistent diet Sliding scale insulin 4. Diabetic neuropathy Continue gabapentin 5. Atrial fibrillation Patient not on anticoagulation by choice Continue Lopressor 6. DVT prophylaxis Lovenox Disposition: Pending clinical improvement. SARA GILBERT DO Nov 14, 2021 14:48
[2021-11-14 16:20] VITALS: BP 162/83
[2021-11-14] MEDS: HumaLOG INSULIN (NovoLOG) PER UNIT SC SCH ×2 (17:00→20:17)
[2021-11-14] MEDS ORDERED: HOME MED LIST COMPLETE! XX SCH (17:20)
[2021-11-14] MEDS ORDERED: PILL CUTTER 1 EACH XX PRN (18:15)
[2021-11-14] MEDS: POTASSIUM CHLORIDE 10MEQ SR TABLET PO SCH (19:15)
[2021-11-14] MEDS: FLUoxetine 20 MG CAP PO SCH (19:15)
[2021-11-14] MEDS: METOPROLOL TARTRATE 100 MG TAB PO SCH (19:15)
[2021-11-14] MEDS: CALCITRIOL 0.25 MCG CAP (S0169) PO SCH (19:16)
[2021-11-14] MEDS: allopurinoL 100 MG TAB PO SCH (19:16)
[2021-11-14] MEDS ORDERED: FUROSEMIDE 40MG/4ML VIAL (J1940) IV ONE (19:30)
[2021-11-14] MEDS: GABAPENTIN 300 MG CAP PO SCH (20:22)
[2021-11-14] MEDS: buPROPion **SR TABLET** (ZYBAN) 150MG PO SCH (20:22)
[2021-11-14] MEDS: tiZANidine 4 MG TAB PO SCH (20:23)
[2021-11-14] MEDS: DOCUSATE SODIUM 100MG CAPSULE PO SCH (20:23)
[2021-11-14] MEDS: NIACIN SR (NIASPAN) 500 MG TAB PO SCH (20:23)
[2021-11-14] MEDS: SIMVASTATIN 20 MG TAB PO SCH (20:23)
[2021-11-14 22:00] VITALS: BP 161/81
--- NOTE | 2021-11-14 22:08 | ECGEPIP ---
[facility] - ED Test Date: 2021-11-14 Pat Name: MARTHA ARENAS Department: Room: - Gender: Female Parker: [place] ANTOINE : 1950 Requested By: Laura Smith Order Number: [id number] Reading MD: Danie Sawyer Measurements Intervals Tabor Rate: 77 P: 20 VA: 146 QRS: 24 QRSD: 90 T: 214 QT: 304 QTc: 344 Interpretive Statements Sinus rhythm with premature atrial complexes Nonspecific ST and T wave abnormality Similar to tracing done 01-20-21 Electronically Signed on 11-14-2021 22:08:16 EST by Danie Sawyer
[2021-11-15 06:00] VITALS: BP 132/60
[2021-11-15 06:26] LABS: HEMATOCRIT 32.8 % (36.0-47.0); HEMOGLOBIN 10.1 g/dl (12.0-15.5); MEAN CORPUSCULAR HGB CONC 30.8 g/dl (32.0-36.5); MEAN CORPUSCULAR VOLUME 103.8 fl (80.0-96.0); PLATELET COUNT, AUTOMATED 145 10^3/uL (150-450); RED BLOOD COUNT 3.16 10^6/uL (4.00-5.40)
[2021-11-15 06:54] LABS: BLOOD UREA NITROGEN 11 MG/DL (7-18); CALCIUM LEVEL 9.1 MG/DL (8.8-10.2); CARBON DIOXIDE LEVEL 33 MEQ/L (21-32); CHLORIDE LEVEL 105 MEQ/L (98-107); CREATININE FOR GFR 0.95 MG/DL (0.55-1.30); GLOMERULAR FILTRATION RATE > 60.0 (>45); GLUCOSE, FASTING 81 MG/DL (70-100); MAGNESIUM LEVEL 1.6 MG/DL (1.8-2.4); POTASSIUM SERUM 3.8 MEQ/L (3.5-5.1); SODIUM LEVEL 143 MEQ/L (136-145)
[2021-11-15] MEDS: HumaLOG INSULIN (NovoLOG) PER UNIT SC SCH ×4 (07:30→21:00)
[2021-11-15] MEDS ORDERED: ENOXAPARIN 40MG/0.4ML SYRINGE (J1650 PER 10MG) SC SCH (09:00)
[2021-11-15] MEDS ORDERED: FUROSEMIDE 40MG/4ML VIAL (J1940) IV SCH (09:00)
[2021-11-15] MEDS: FLUoxetine 20 MG CAP PO SCH (09:21)
[2021-11-15] MEDS: GABAPENTIN 300 MG CAP PO SCH ×3 (09:21→21:00)
[2021-11-15] MEDS: allopurinoL 100 MG TAB PO SCH (09:22)
[2021-11-15] MEDS: POTASSIUM CHLORIDE 10MEQ SR TABLET PO SCH (09:22)
[2021-11-15] MEDS: METOPROLOL TARTRATE 100 MG TAB PO SCH (09:22)
[2021-11-15] MEDS: DOCUSATE SODIUM 100MG CAPSULE PO SCH ×2 (09:23→21:00)
[2021-11-15] MEDS: buPROPion **SR TABLET** (ZYBAN) 150MG PO SCH ×2 (09:31→21:00)
[2021-11-15] MEDS: MAG SULF 1GM/100ML (MAG RUN) 1 GM in IV 1 EA IV SCH ×2 (09:32→10:38)
--- NOTE | 2021-11-15 13:07 | IPNPDOC ---
Subjective Date Seen The patient was seen on 11/15/21. Subjective Chief Complaint/HPI Mrs. Muir is a 71-year-old female with morbid obesity and heart failure with preserved ejection fraction who presents with worsening shortness of breath. This morning, she is feeling better. She does not look as depressed either. Denies chest pain or shortness of breath is improved. She is currently on 2 L. She tells me that she did not have a lot of urine output. We will increase her IV Lasix frequency. Objective Physical Examination General Exam: Positive: Alert, Cooperative Eye Exam: Positive: EOMI; Negative: Sclera icteric ENT Exam: Positive: Atraumatic Neck Exam: Positive: Supple Chest Exam: Positive: Diminished Heart Exam: Positive: Rate Normal, Regular Rhythm Abdomen Exam: Positive: Normal bowel sounds, Soft; Negative: Tenderness Extremity Exam: Positive: Edema (Non pitting) Neuro Exam: Positive: Normal Speech, Cranial Nerves 3-12 NL Psych Exam: Positive: Mental status NL, Mood NL Assessment /Plan Assessment Mrs. Muir is a 71-year-old female with morbid obesity and heart failure with preserved ejection fraction who presents with worsening shortness of breath. Unclear etiology to her heart failure. She denies overabundance of salt or fluids. Question if her cereal or milk salty. Other possibility would be an acute injury to the heart causing reduced ejection fraction. Order for echocardiogram and repeat troponins. Repeat troponins are negative for acute ACS. Another possibility would be Takotsubo's cardiomyopathy given her emotional distress of her daughter's recent passing. Echocardiogram ordered, pending results Plan/VTE VTE Prophylaxis Ordered?: Yes Plan 1. Acute decompensated heart failure with preserved ejection fraction Patient reports orthopnea and worsening shortness of breath since her daughter Increased IV lasix today as output was not optimal I's and O's and daily weights 2 g sodium diet We will evaluate with echocardiogram -Troponins negative 2. Grieving Patient's is grieving, she lost her daughter just before Thanksgiving Patient also lost her around Thanksgiving as well She has had shortness of breath since her daughter Question if she had Takotsubo's cardiomyopathy. Echocardiogram ordered Continue bupropion and fluoxetine 3. Diabetes mellitus Add on carbohydrate consistent diet Sliding scale insulin 4. Diabetic neuropathy Continue gabapentin 5. Atrial fibrillation Patient not on anticoagulation by choice Continue Lopressor 6. DVT prophylaxis Lovenox Disposition: Pending clinical improvement. Urine output not optimal, increased IV lasix. VS, I&O, 24H, Fishbone Vital Signs/I&O Vital Signs Date Time Temp Pulse Resp B/P (MAP) Pulse Ox O2 Delivery O2 Flow Rate FiO2 11/15/21 09:22 80 135/65 11/15/21 06:00 97.6 18 98 Nasal Cannula 2.0 I&O- Last 24 Hours up to 6 AM 11/15/21 05:59 Intake Total 600 ml Output Total 350 ml Balance 250 ml Laboratory Data 24H LABS Laboratory Tests 2 11/14/21 16:51: Bedside Glucose (Misc Panel) 63L 11/14/21 17:27: Troponin I High Sensitivity 35.0 11/14/21 18:02: Bedside Glucose (Misc Panel) 85 11/14/21 20:03: Bedside Glucose (Misc Panel) 100 11/15/21 05:17: Nucleated Red Blood Cells % (auto) 0.0, Erythrocyte Sedimentation Rate 65H, Anion Gap 5L, Glomerular Filtration Rate > 60.0, Calcium Level 9.1, Magnesium Level 1.6L 11/15/21 11:19: Bedside Glucose (Misc Panel) 106 CBC/BMP Laboratory Tests 11/15/21 05:17 Microbiology Microbiology 11/14/21 Respiratory Virus Panel (PCR) ([facility]) - Final, Complete 11/14/21 Blood Culture - Preliminary, Resulted No growth after 24 hours . All specim... 11/14/21 Blood Culture - Preliminary, Resulted No growth after 24 hours . All specim... SARA GILBERT DO Nov 15, 2021 13:07
[2021-11-15 14:00] VITALS: BP 128/64
[2021-11-15] MEDS: FUROSEMIDE 40MG/4ML VIAL (J1940) IV SCH ×2 (14:57→21:00)
--- NOTE | 2021-11-15 15:12 | ECHO ---
ECHOCARDIOGRAM DATE OF PROCEDURE: 11/14/2021 Age: Gender: Female Height: Weight: REFERRING PHYSICIAN: Bharat Burns M.D. INDICATION: Heart failure, unspecified. MEASUREMENTS: 2D Measurements: Left atrium 1.4 cm Left atrial volume index 32 Left ventricle diastole 5.7 cm Intraventricular septum 1.16 cm Posterior wall 1.12 cm Aortic root 2.8 cm IVC 2.3 cm with reduced respiratory variation. Doppler Measurements: No aortic regurgitation or stenosis Aortic valve velocity 158 cm/sec LVOT velocity 67.2 cm/sec LVOT VTI 16.3 cm Very mild mitral regurgitation No mitral stenosis Mitral E velocity 90.8 cm/sec Mitral A velocity 82.7 cm/sec Mitral deceleration time 161 msec Very mild mitral regurgitation Estimated right ventricle systolic pressure 60-65 mmHg Estimated right atrial pressure of 15-20 mmHg MITRAL ANNULAR TISSUE DOPPLER: E prime septal 4.7 cm/sec E prime lateral 5.4 cm/sec DESCRIPTION: Rhythm was sinus. Image quality was good. This was a 2D, M-mode, color flow Doppler and pulse wave Doppler examination and included mitral annular tissue Doppler CONCLUSIONS: 1. Normal left ventricle and diastolic dimensions and wall thicknesses. Moderate global left ventricular (LV) hypokinesis. Moderate reduction of overall LV systolic function. Left ventricular ejection fraction (LVEF) 40% (3D). Grade 2 LV diastolic dysfunction (pseudonormal diastolic filling pattern). 2. Suggestive of severe elevation of estimated right ventricle systolic pressure (60-65 mmHg). Suggestive of elevated central venous pressure (CVP) (15-20 mmHg). Normal right ventricle size and systolic function. 3. Mild left atrial dilatation by left atrial volume index. 4. Mild aortic valve sclerosis of a 3-cusp aortic valve. No aortic regurgitation. 5. Mild mitral annular calcification. Very mild mitral regurgitation. 6. Very small pericardial effusion. No diastolic chamber collapse. 7. Left pleural effusion.
[2021-11-15] MEDS: NIACIN SR (NIASPAN) 500 MG TAB PO SCH (21:00)
[2021-11-15] MEDS: SIMVASTATIN 20 MG TAB PO SCH (21:00)
[2021-11-15] MEDS: tiZANidine 4 MG TAB PO SCH (21:00)
[2021-11-15 22:00] VITALS: BP 156/79
[2021-11-16] MEDS: FUROSEMIDE 40MG/4ML VIAL (J1940) IV SCH ×4 (03:23→22:04)
[2021-11-16 06:00] VITALS: BP 123/82
[2021-11-16 07:25] LABS: HEMATOCRIT 31.4 % (36.0-47.0); HEMOGLOBIN 9.9 g/dl (12.0-15.5); MEAN CORPUSCULAR HEMOGLOBIN 32.2 pg (27.0-33.0); MEAN CORPUSCULAR HGB CONC 31.5 g/dl (32.0-36.5); MEAN CORPUSCULAR VOLUME 102.3 fl (80.0-96.0); PLATELET COUNT, AUTOMATED 141 10^3/uL (150-450); RED BLOOD COUNT 3.07 10^6/uL (4.00-5.40); WHITE BLOOD COUNT 4.1 10^3/uL (4.0-10.0)
[2021-11-16] MEDS: HumaLOG INSULIN (NovoLOG) PER UNIT SC SCH ×4 (07:30→20:04)
[2021-11-16 07:45] LABS: CALCIUM LEVEL 9.2 MG/DL (8.8-10.2); CREATININE FOR GFR 1.06 MG/DL (0.55-1.30); GLOMERULAR FILTRATION RATE 54.7 (>45); MAGNESIUM LEVEL 1.7 MG/DL (1.8-2.4); POTASSIUM SERUM 3.8 MEQ/L (3.5-5.1)
[2021-11-16] MEDS ORDERED: METOPROLOL TART 50 MG TAB PO SCH (09:00)
[2021-11-16] MEDS: POTASSIUM CHLORIDE 10MEQ SR TABLET PO SCH (09:42)
[2021-11-16] MEDS: GABAPENTIN 300 MG CAP PO SCH ×3 (09:42→22:02)
[2021-11-16] MEDS: APIXABAN 5 MG TAB (ELIQUIS) PO SCH ×2 (09:42→22:03)
[2021-11-16] MEDS: FLUoxetine 20 MG CAP PO SCH (09:43)
[2021-11-16] MEDS: DOCUSATE SODIUM 100MG CAPSULE PO SCH ×2 (09:44→22:04)
[2021-11-16] MEDS: allopurinoL 100 MG TAB PO SCH (09:44)
[2021-11-16] MEDS: buPROPion **SR TABLET** (ZYBAN) 150MG PO SCH ×2 (09:44→22:02)
[2021-11-16] MEDS: MAG SULF 1GM/100ML (MAG RUN) 1 GM in IV 1 EA IV SCH ×2 (09:46→10:54)
--- NOTE | 2021-11-16 12:07 | IPNPDOC ---
Subjective Date Seen The patient was seen on 11/16/21. Subjective Chief Complaint/HPI Mrs. Muir is a 71-year-old female with morbid obesity and heart failure with preserved ejection fraction who presents with worsening shortness of breath. This morning, she was feeling better. Denies chest pain or palpitations, and breathing better. She went into afib with RVR overnight. She is unaware of having afib, but it has been documented that she does have the arrhythmia. We talked about the risks and benefits of anticoagulation and she was agreeable. Objective Physical Examination General Exam: Positive: Alert, Cooperative Eye Exam: Positive: EOMI; Negative: Sclera icteric ENT Exam: Positive: Atraumatic Neck Exam: Positive: Supple Chest Exam: Positive: Diminished Heart Exam: Positive: Tachycardic, Irregular Rhythm Abdomen Exam: Positive: Normal bowel sounds, Soft; Negative: Tenderness Extremity Exam: Positive: Edema (Non pitting) Neuro Exam: Positive: Normal Speech, Cranial Nerves 3-12 NL Psych Exam: Positive: Mental status NL, Mood NL Assessment /Plan Assessment Mrs. Muir is a 71-year-old female with morbid obesity and heart failure with preserved ejection fraction who presents with worsening shortness of breath. Unclear etiology to her heart failure. She denies overabundance of salt or fluids. Question if her cereal or milk salty. Other possibility would be an acute injury to the heart causing reduced ejection fraction. Order for echocardiogram and repeat troponins. Repeat troponins are negative for acute ACS. Another possibility would be Takotsubo's cardiomyopathy given her emotional distress of her daughter's recent passing. Echocardiogram returned. She had decreased EF compared to prior. EF in 2020 was 60 to 65%. Now 40%. I touched base with cardiology, Dr. Nava. Patient has negative troponins and without EKG changes. Recommended beta sheree as it would reduce the catecholamine response. I asked about aspirin. Since there is suspicion of Takotsubo's and troponins are negative, did not recommend aspirin. Plan/VTE VTE Prophylaxis Ordered?: Yes Plan 1. Acute decompensated heart failure with reduced ejection fraction Patient reports orthopnea and worsening shortness of breath since her daughter Echocardiogram is reduced. Troponin x2 negative and EKG unchanged -Cardiology recommending beta sheree I's and O's and daily weights 2 g sodium diet Wean oxygen as tolerated -Will recommend patient follow up with cardiology outpatient. -Continue beta sheree and statin 2. Grieving Patient's is grieving, she lost her daughter just before Lalitha Patient also lost her around Lalitha as well She has had shortness of breath since her daughter Question if she had Takotsubo's cardiomyopathy. Echocardiogram ordered Continue bupropion and fluoxetine 3. Diabetes mellitus Add on carbohydrate consistent diet Sliding scale insulin 4. Diabetic neuropathy Continue gabapentin 5. Atrial fibrillation with RVR Will increase Lopressor -Discussed anticoagulation again. Patient is agreeable to anticoagulation. Discontinue Lovenox and start Eliquis. 6. DVT prophylaxis -Eliquis Disposition: Pending weaning off of oxygen and heart rate control. VS, I&O, 24H, [place] Vital Signs/I&O Vital Signs Date Time Temp Pulse Resp B/P (MAP) Pulse Ox O2 Delivery O2 Flow Rate FiO2 11/16/21 09:45 115 129/86 11/16/21 06:00 98.3 16 96 Nasal Cannula 2.0 I&O- Last 24 Hours up to 6 AM 11/16/21 05:59 Intake Total 1020 ml Output Total 925 ml Balance 95 ml Laboratory Data 24H LABS Laboratory Tests 2 11/15/21 16:26: Bedside Glucose (Misc Panel) 111 11/15/21 21:27: Bedside Glucose (Misc Panel) 114 11/16/21 06:50: Nucleated Red Blood Cells % (auto) 0.0, Anion Gap 4L, Glomerular Filtration Rate 54.7, Calcium Level 9.2, Magnesium Level 1.7L 11/16/21 11:46: Bedside Glucose (Misc Panel) 131H CBC/BMP Laboratory Tests 11/16/21 06:50 Microbiology Microbiology 11/14/21 Respiratory Virus Panel (PCR) ([facility]) - Final, Complete 11/14/21 Blood Culture - Preliminary, Resulted No growth after 24 hours . All specim... 11/14/21 Blood Culture - Preliminary, Resulted No growth after 24 hours . All specim... SARA GILBERT DO Nov 16, 2021 12:07
[2021-11-16 14:00] VITALS: BP 119/70
[2021-11-16] MEDS: METOPROLOL TART 50 MG TAB PO SCH ×2 (15:38→22:04)
[2021-11-16 22:00] VITALS: BP 149/79
[2021-11-16] MEDS: SIMVASTATIN 20 MG TAB PO SCH (22:02)
[2021-11-16] MEDS: NIACIN SR (NIASPAN) 500 MG TAB PO SCH (22:02)
[2021-11-16] MEDS: tiZANidine 4 MG TAB PO SCH (22:03)
[2021-11-17] MEDS: FUROSEMIDE 40MG/4ML VIAL (J1940) IV SCH ×3 (04:45→16:49)
[2021-11-17 06:00] VITALS: BP 128/60
[2021-11-17 06:02] LABS: HEMATOCRIT 34.6 % (36.0-47.0); HEMOGLOBIN 11.1 g/dl (12.0-15.5); MEAN CORPUSCULAR HEMOGLOBIN 32.4 pg (27.0-33.0); MEAN CORPUSCULAR HGB CONC 32.1 g/dl (32.0-36.5); MEAN CORPUSCULAR VOLUME 100.9 fl (80.0-96.0); PLATELET COUNT, AUTOMATED 168 10^3/uL (150-450); RED BLOOD COUNT 3.43 10^6/uL (4.00-5.40); WHITE BLOOD COUNT 4.6 10^3/uL (4.0-10.0)
[2021-11-17 06:18] LABS: CALCIUM LEVEL 9.5 MG/DL (8.8-10.2); CREATININE FOR GFR 1.14 MG/DL (0.55-1.30); GLOMERULAR FILTRATION RATE 50.3 (>45); MAGNESIUM LEVEL 1.9 MG/DL (1.8-2.4); POTASSIUM SERUM 3.9 MEQ/L (3.5-5.1)
[2021-11-17] MEDS: HumaLOG INSULIN (NovoLOG) PER UNIT SC SCH ×4 (07:30→20:27)
[2021-11-17] MEDS: METOPROLOL TART 50 MG TAB PO SCH ×3 (09:51→21:00)
[2021-11-17] MEDS: CALCITRIOL 0.25 MCG CAP (S0169) PO SCH (09:51)
[2021-11-17] MEDS: DOCUSATE SODIUM 100MG CAPSULE PO SCH ×2 (09:51→21:40)
[2021-11-17] MEDS: POTASSIUM CHLORIDE 10MEQ SR TABLET PO SCH (09:51)
[2021-11-17] MEDS: buPROPion **SR TABLET** (ZYBAN) 150MG PO SCH ×2 (09:51→21:41)
[2021-11-17] MEDS: APIXABAN 5 MG TAB (ELIQUIS) PO SCH ×2 (09:51→21:40)
[2021-11-17] MEDS: FLUoxetine 20 MG CAP PO SCH (09:52)
[2021-11-17] MEDS: GABAPENTIN 300 MG CAP PO SCH ×3 (09:52→21:40)
[2021-11-17] MEDS: allopurinoL 100 MG TAB PO SCH (09:52)
[2021-11-17 14:00] VITALS: BP 139/67
--- NOTE | 2021-11-17 20:35 | IPNPDOC ---
Subjective Date Seen The patient was seen on 11/17/21. Subjective Chief Complaint/HPI Mrs. Muir is a 71-year-old female with morbid obesity and heart failure with preserved ejection fraction who presents with worsening shortness of breath. She was weaned off of oxygen. This morning, she is feeling better. Denies chest pain or dyspnea. Physical therapy worked with patient. = Family is concerned about patient's ability to ambulate. Per [facility], they will look for subacute rehab. Will make patient ALC today. Objective Physical Examination General Exam: Positive: Alert, Cooperative Eye Exam: Positive: EOMI; Negative: Sclera icteric ENT Exam: Positive: Atraumatic Neck Exam: Positive: Supple Chest Exam: Positive: Diminished Heart Exam: Positive: Rate Normal, Irregular Rhythm Abdomen Exam: Positive: Normal bowel sounds, Soft; Negative: Tenderness Extremity Exam: Positive: Edema (Non pitting) Neuro Exam: Positive: Normal Speech, Cranial Nerves 3-12 NL Psych Exam: Positive: Mental status NL, Mood NL Assessment /Plan Assessment Mrs. Muir is a 71-year-old female with morbid obesity and heart failure with preserved ejection fraction who presents with worsening shortness of breath. Unclear etiology to her heart failure. She denies overabundance of salt or fluids. Question if her cereal or milk salty. Other possibility would be an a cute injury to the heart causing reduced ejection fraction. Order for echocardiogram and repeat troponins. Repeat troponins are negative for acute ACS. Another possibility would be Takotsubo's cardiomyopathy given her emotional distress of her daughter's recent passing. Echocardiogram returned. She had decreased EF compared to prior. EF in 2020 was 60 to 65%. Now 40%. I touched base with cardiology, Dr. Nava. Patient has negative troponins and without EKG changes. Recommended beta sheree as it would reduce the catecholamine response. I asked about aspirin. Since there is suspicion of Takotsubo's and troponins are negative, did not recommend aspirin. Plan/VTE VTE Prophylaxis Ordered?: Yes Plan 1. Acute decompensated heart failure with reduced ejection fraction Patient reports orthopnea and worsening shortness of breath since her daughter Echocardiogram is reduced. Troponin x2 negative and EKG unchanged -Cardiology recommending beta sheree I's and O's and daily weights 2 g sodium diet Wean oxygen as tolerated -Will recommend patient follow up with cardiology outpatient. -Continue beta sheree and statin 2. Grieving Patient's is grieving, she lost her daughter just before Lalitha Patient also lost her around Lalitha as well She has had shortness of breath since her daughter Question if she had Takotsubo's cardiomyopathy. Echocardiogram ordered Continue bupropion and fluoxetine 3. Diabetes mellitus Add on carbohydrate consistent diet Sliding scale insulin 4. Diabetic neuropathy Continue gabapentin 5. Atrial fibrillation with RVR Heart rate controlled with Lopressor -Discussed anticoagulation again. Patient is agreeable to anticoagulation. Discontinue Lovenox and start Eliquis. 6. DVT prophylaxis -Eliquis Disposition: Patient has been weaned off of oxygen and is medically stable. Patient needs more physical therapy. [facility] looking for rehab. Patient will be made ALC today. VS, I&O, 24H, Fishbone Vital Signs/I&O Vital Signs Date Time Temp Pulse Resp B/P (MAP) Pulse Ox O2 Delivery O2 Flow Rate FiO2 11/17/21 09:51 73 141/66 11/17/21 06:00 98.4 16 93 Room Air 11/16/21 06:00 2.0 I&O- Last 24 Hours up to 6 AM 11/17/21 06:00 Intake Total 970 ml Output Total 2900 ml Balance -1930 ml Laboratory Data 24H LABS Laboratory Tests 2 11/16/21 16:48: Bedside Glucose (Misc Panel) 107 11/16/21 20:01: Bedside Glucose (Misc Panel) 158H 11/17/21 05:24: Nucleated Red Blood Cells % (auto) 0.0, Anion Gap 3L, Glomerular Filtration Rate 50.3, Calcium Level 9.5, Magnesium Level 1.9 CBC/BMP Laboratory Tests 11/17/21 05:24 Microbiology Microbiology 11/14/21 Respiratory Virus Panel (PCR) ([facility]) - Final, Complete 11/14/21 Blood Culture - Preliminary, Resulted No Growth after 72 hours. All specime... 11/14/21 Blood Culture - Preliminary, Resulted No Growth after 72 hours. All specime... SARA GILBERT DO Nov 17, 2021 13:17
[2021-11-17] MEDS: SIMVASTATIN 20 MG TAB PO SCH (21:40)
[2021-11-17] MEDS: NIACIN SR (NIASPAN) 500 MG TAB PO SCH (21:41)
[2021-11-17] MEDS: tiZANidine 4 MG TAB PO SCH (21:41)
[2021-11-17 22:00] VITALS: BP 128/62
[2021-11-18 06:00] VITALS: BP 119/59
[2021-11-18 06:25] LABS: HEMOGLOBIN 10.6 g/dl (12.0-15.5); MEAN CORPUSCULAR HGB CONC 31.2 g/dl (32.0-36.5); MEAN CORPUSCULAR VOLUME 102.7 fl (80.0-96.0); PLATELET COUNT, AUTOMATED 174 10^3/uL (150-450); RED BLOOD COUNT 3.31 10^6/uL (4.00-5.40); WHITE BLOOD COUNT 5.6 10^3/uL (4.0-10.0)
[2021-11-18 06:44] LABS: CALCIUM LEVEL 9.1 MG/DL (8.8-10.2); CREATININE FOR GFR 1.23 MG/DL (0.55-1.30); GLOMERULAR FILTRATION RATE 46.1 (>45); MAGNESIUM LEVEL 1.6 MG/DL (1.8-2.4); POTASSIUM SERUM 4.3 MEQ/L (3.5-5.1)
[2021-11-18] MEDS: HumaLOG INSULIN (NovoLOG) PER UNIT SC SCH ×4 (07:30→21:00)
[2021-11-18] MEDS: MAGNESIUM OXIDE 400MG TAB (MAG-OX) PO SCH ×2 (10:20→22:14)
[2021-11-18] MEDS: allopurinoL 100 MG TAB PO SCH (10:20)
[2021-11-18] MEDS: FLUoxetine 20 MG CAP PO SCH (10:20)
[2021-11-18] MEDS: GABAPENTIN 300 MG CAP PO SCH ×3 (10:20→22:14)
[2021-11-18] MEDS: FUROSEMIDE 20 MG TAB PO SCH ×2 (10:20→17:00)
[2021-11-18] MEDS: buPROPion **SR TABLET** (ZYBAN) 150MG PO SCH ×2 (10:21→22:14)
[2021-11-18] MEDS: POTASSIUM CHLORIDE 10MEQ SR TABLET PO SCH (10:21)
[2021-11-18] MEDS: METOPROLOL TART 50 MG TAB PO SCH ×2 (10:21→21:00)
[2021-11-18] MEDS: APIXABAN 5 MG TAB (ELIQUIS) PO SCH ×2 (10:22→22:15)
[2021-11-18] MEDS: DOCUSATE SODIUM 100MG CAPSULE PO SCH ×2 (10:22→22:14)
[2021-11-18] MEDS ORDERED: ACETAMINOPHEN TAB 650MG DOSE (2X325MG) PO ONE (14:15)
[2021-11-18 17:10] VITALS: BP 111/65
[2021-11-18 22:00] VITALS: BP 112/53
[2021-11-18] MEDS: NIACIN SR (NIASPAN) 500 MG TAB PO SCH (22:14)
[2021-11-18] MEDS: SIMVASTATIN 20 MG TAB PO SCH (22:15)
[2021-11-18] MEDS: tiZANidine 4 MG TAB PO SCH (22:15)
[2021-11-19 06:00] VITALS: BP 106/52
[2021-11-19 06:36] LABS: HEMOGLOBIN 10.2 g/dl (12.0-15.5); MEAN CORPUSCULAR HEMOGLOBIN 31.8 pg (27.0-33.0); MEAN CORPUSCULAR HGB CONC 30.9 g/dl (32.0-36.5); MEAN CORPUSCULAR VOLUME 102.8 fl (80.0-96.0); PLATELET COUNT, AUTOMATED 163 10^3/uL (150-450); RED BLOOD COUNT 3.21 10^6/uL (4.00-5.40); WHITE BLOOD COUNT 4.7 10^3/uL (4.0-10.0)
[2021-11-19 06:55] LABS: CREATININE FOR GFR 1.45 MG/DL (0.55-1.30); GLOMERULAR FILTRATION RATE 38.1 (>45); MAGNESIUM LEVEL 1.9 MG/DL (1.8-2.4); POTASSIUM SERUM 4.5 MEQ/L (3.5-5.1)
[2021-11-19] MEDS: buPROPion **SR TABLET** (ZYBAN) 150MG PO SCH ×2 (08:12→20:16)
[2021-11-19] MEDS: allopurinoL 100 MG TAB PO SCH (08:13)
[2021-11-19] MEDS: DOCUSATE SODIUM 100MG CAPSULE PO SCH ×2 (08:13→20:16)
[2021-11-19] MEDS: GABAPENTIN 300 MG CAP PO SCH ×3 (08:13→20:17)
[2021-11-19] MEDS: APIXABAN 5 MG TAB (ELIQUIS) PO SCH ×2 (08:13→20:17)
[2021-11-19] MEDS: FLUoxetine 20 MG CAP PO SCH (08:13)
[2021-11-19] MEDS: POTASSIUM CHLORIDE 10MEQ SR TABLET PO SCH (08:13)
[2021-11-19] MEDS: CALCITRIOL 0.25 MCG CAP (S0169) PO SCH (08:14)
[2021-11-19] MEDS: MAGNESIUM OXIDE 400MG TAB (MAG-OX) PO SCH ×2 (08:14→20:16)
[2021-11-19] MEDS: HumaLOG INSULIN (NovoLOG) PER UNIT SC SCH ×4 (08:15→20:18)
[2021-11-19] MEDS: FUROSEMIDE 20 MG TAB PO SCH (08:17)
[2021-11-19] MEDS: METOPROLOL TART 50 MG TAB PO SCH ×2 (08:17→20:17)
[2021-11-19] MEDS ORDERED: FUROSEMIDE 40 MG TAB PO SCH (09:00)
[2021-11-19] MEDS: NIACIN SR (NIASPAN) 500 MG TAB PO SCH (20:16)
[2021-11-19] MEDS: tiZANidine 4 MG TAB PO SCH (20:17)
[2021-11-19] MEDS: SIMVASTATIN 20 MG TAB PO SCH (20:17)
[2021-11-20] MEDS: ACETAMINOPHEN TAB 650MG DOSE (2X325MG) PO PRN (00:26)
[2021-11-20 06:00] VITALS: BP 117/69
[2021-11-20 07:20] LABS: CALCIUM LEVEL 9.1 MG/DL (8.8-10.2); CREATININE FOR GFR 1.68 MG/DL (0.55-1.30); GLOMERULAR FILTRATION RATE 32.2 (>45); POTASSIUM SERUM 4.6 MEQ/L (3.5-5.1)
[2021-11-20] MEDS: HumaLOG INSULIN (NovoLOG) PER UNIT SC SCH ×4 (07:29→21:00)
[2021-11-20] MEDS ORDERED: FUROSEMIDE 40 MG TAB PO SCH (09:00)
[2021-11-20] MEDS: FLUoxetine 20 MG CAP PO SCH (09:42)
[2021-11-20] MEDS: GABAPENTIN 300 MG CAP PO SCH ×3 (09:42→21:23)
[2021-11-20] MEDS: POTASSIUM CHLORIDE 10MEQ SR TABLET PO SCH (09:42)
[2021-11-20] MEDS: DOCUSATE SODIUM 100MG CAPSULE PO SCH ×2 (09:42→21:23)
[2021-11-20] MEDS: buPROPion **SR TABLET** (ZYBAN) 150MG PO SCH ×2 (09:42→21:23)
[2021-11-20] MEDS: MAGNESIUM OXIDE 400MG TAB (MAG-OX) PO SCH ×2 (09:43→21:00)
[2021-11-20] MEDS: APIXABAN 5 MG TAB (ELIQUIS) PO SCH ×2 (09:43→21:25)
[2021-11-20] MEDS: allopurinoL 100 MG TAB PO SCH (09:43)
[2021-11-20] MEDS: METOPROLOL TART 50 MG TAB PO SCH ×2 (09:45→21:24)
--- NOTE | 2021-11-20 13:01 | IPNPDOC ---
Date Seen The patient was seen on 11/20/21. Progress Note Acute kidney injury -previously on lasix 60 mg bid which was discontinued 11/19/21 -lasix 40 mg daily ordered for 11/20/21 to be held if creatinine>1.3 or sbp<100mmhg. -repeat creatinine 11/20/21 1.68, lasix discontinued. -recheck bmp at noon. no ivfluids to be given due to recent chf. VS, I&O, 24H, Fishbone Vital Signs/I&O Vital Signs Date Time Temp Pulse Resp B/P (MAP) Pulse Ox O2 Delivery O2 Flow Rate FiO2 11/20/21 09:45 82 112/52 11/20/21 06:00 96.6 16 96 Nasal Cannula 2.0 I&O- Last 24 Hours up to 6 AM 11/20/21 06:00 Intake Total 660 ml Balance 660 ml Laboratory Data 24H LABS Laboratory Tests 2 11/19/21 17:04: Bedside Glucose (Misc Panel) 123H 11/19/21 19:15: Bedside Glucose (Misc Panel) 132H 11/20/21 06:42: Anion Gap 3L, Glomerular Filtration Rate 32.2L, Calcium Level 9.1 11/20/21 11:48: Bedside Glucose (Misc Panel) 105 CBC/BMP Laboratory Tests 11/20/21 06:42 Microbiology Microbiology 11/14/21 Respiratory Virus Panel (PCR) ([facility]) - Final, Complete 11/14/21 Blood Culture - Final, Complete NO GROWTH AFTER 5 DAYS 11/14/21 Blood Culture - Final, Complete NO GROWTH AFTER 5 DAYS BRANDON MCGOWAN MD Nov 20, 2021 13:01
[2021-11-20 14:04] LABS: CALCIUM LEVEL 9.8 MG/DL (8.8-10.2); CREATININE FOR GFR 1.64 MG/DL (0.55-1.30); GLOMERULAR FILTRATION RATE 33.1 (>45); POTASSIUM SERUM 5.5 MEQ/L (3.5-5.1)
--- NOTE | 2021-11-20 14:20 | REP ---
INDICATION: hugo. COMPARISON: 01/16/2018 TECHNIQUE: Real-time sonographic evaluation of the kidneys with Doppler FINDINGS: Multiple ultrasonographic images of the right kidney show the right kidney to measure 8.5 x 4.2 x 3.9 cm. The renal cortical echotexture is unremarkable. There are no masses. There is good corticomedullary differentiation. There is no hydronephrosis. There are no perinephric fluid collections. Multiple ultrasonographic images of the left kidney show the left kidney to measure 8.3 x 4 x 4.3 cm. The renal cortical echotexture is unremarkable. There are no masses. There is good corticomedullary differentiation. There is no hydronephrosis. There are no perinephric fluid collections. IMPRESSION: Unremarkable renal ultrasonography. No significant change compared to the prior exam. <Electronically signed by Ramirez Austin > 11/20/21 [id number]
[2021-11-20] MEDS: NIACIN SR (NIASPAN) 500 MG TAB PO SCH (21:23)
[2021-11-20] MEDS: tiZANidine 4 MG TAB PO SCH (21:25)
[2021-11-20] MEDS: SIMVASTATIN 20 MG TAB PO SCH (21:25)
[2021-11-21 06:00] VITALS: BP 138/73
[2021-11-21 06:17] LABS: HEMATOCRIT 32.8 % (36.0-47.0); HEMOGLOBIN 10.3 g/dl (12.0-15.5); MEAN CORPUSCULAR HEMOGLOBIN 32.2 pg (27.0-33.0); MEAN CORPUSCULAR HGB CONC 31.4 g/dl (32.0-36.5); MEAN CORPUSCULAR VOLUME 102.5 fl (80.0-96.0); PLATELET COUNT, AUTOMATED 197 10^3/uL (150-450); WHITE BLOOD COUNT 4.3 10^3/uL (4.0-10.0)
[2021-11-21 06:42] LABS: CALCIUM LEVEL 9.1 MG/DL (8.8-10.2); CREATININE FOR GFR 1.6 MG/DL (0.55-1.30); MAGNESIUM LEVEL 1.8 MG/DL (1.8-2.4); POTASSIUM SERUM 4.4 MEQ/L (3.5-5.1)
[2021-11-21] MEDS: HumaLOG INSULIN (NovoLOG) PER UNIT SC SCH ×4 (07:30→20:34)
--- NOTE | 2021-11-21 09:19 | REP ---
INDICATION: sob COMPARISON: 11/14/2021 TECHNIQUE: Portable AP view of the chest FINDINGS: The mediastinum and cardiac silhouette are stable. Increased pulmonary vascular and interstitial markings are again noted along with bibasilar opacities and small pleural effusions all of which appear mildly improved. No pneumothorax. IMPRESSION: Findings suggest mild improvement as compared with 11/14/2021. <Electronically signed by Aakash Richard > 11/21/21 [id number]
[2021-11-21] MEDS: DOCUSATE SODIUM 100MG CAPSULE PO SCH ×2 (09:58→21:10)
[2021-11-21] MEDS: MAGNESIUM OXIDE 400MG TAB (MAG-OX) PO SCH ×2 (09:59→21:10)
[2021-11-21] MEDS: allopurinoL 100 MG TAB PO SCH (09:59)
[2021-11-21] MEDS: APIXABAN 5 MG TAB (ELIQUIS) PO SCH ×2 (09:59→21:09)
[2021-11-21] MEDS: GABAPENTIN 300 MG CAP PO SCH ×3 (09:59→21:09)
[2021-11-21] MEDS: buPROPion **SR TABLET** (ZYBAN) 150MG PO SCH ×2 (09:59→21:19)
[2021-11-21] MEDS: CALCITRIOL 0.25 MCG CAP (S0169) PO SCH (09:59)
[2021-11-21] MEDS: FLUoxetine 20 MG CAP PO SCH (09:59)
[2021-11-21] MEDS: METOPROLOL TART 50 MG TAB PO SCH ×2 (10:00→21:11)
[2021-11-21] MEDS ORDERED: ALPRAZolam 0.5 MG TAB PO ONE (14:50)
[2021-11-21] MEDS ORDERED: HALOPERIDOL 5MG/ML VIAL (J1630 PER 1) IV PRN (14:55)
[2021-11-21] MEDS: tiZANidine 4 MG TAB PO SCH (21:09)
[2021-11-21] MEDS: SIMVASTATIN 20 MG TAB PO SCH (21:10)
[2021-11-21] MEDS: NIACIN SR (NIASPAN) 500 MG TAB PO SCH (21:19)
[2021-11-22 06:00] VITALS: BP 122/64
[2021-11-22 06:06] LABS: CALCIUM LEVEL 8.9 MG/DL (8.8-10.2); CREATININE FOR GFR 1.52 MG/DL (0.55-1.30); GLOMERULAR FILTRATION RATE 36.1 (>45); POTASSIUM SERUM 4.3 MEQ/L (3.5-5.1)
[2021-11-22] MEDS: HumaLOG INSULIN (NovoLOG) PER UNIT SC SCH ×4 (07:30→20:44)
[2021-11-22] MEDS: GABAPENTIN 300 MG CAP PO SCH (09:05)
[2021-11-22] MEDS: MAGNESIUM OXIDE 400MG TAB (MAG-OX) PO SCH ×2 (09:05→22:09)
[2021-11-22] MEDS: DOCUSATE SODIUM 100MG CAPSULE PO SCH ×2 (09:05→22:09)
[2021-11-22] MEDS: allopurinoL 100 MG TAB PO SCH (09:06)
[2021-11-22] MEDS: buPROPion **SR TABLET** (ZYBAN) 150MG PO SCH ×2 (09:06→22:08)
[2021-11-22] MEDS: METOPROLOL TART 50 MG TAB PO SCH ×2 (09:06→21:00)
[2021-11-22] MEDS: APIXABAN 5 MG TAB (ELIQUIS) PO SCH ×2 (09:06→22:09)
[2021-11-22] MEDS: FLUoxetine 20 MG CAP PO SCH (09:06)
[2021-11-22 16:09] LABS: ABG BASE EXCESS 5.4 (-2.0-2.0); ABG HCO3 30.8 MEQ/L (22.0-26.0); ABG O2 SATURATION 97.3 % (95.0-99.0); ABG PARTIAL PRESSURE CO2 48.8 mmHg (35.0-45.0); ABG PARTIAL PRESSURE O2 97.6 mmHg (75.0-100.0); ABG STANDARD HCO3 29.3 MEQ/L (22.0-26.0); ABG TOTAL CO2 32.3 MEQ/L (23.0-31.0); ABG pH (ARTERIAL) 7.418 UNITS (7.350-7.450)
[2021-11-22] MEDS: NIACIN SR (NIASPAN) 500 MG TAB PO SCH (22:08)
[2021-11-22] MEDS: SIMVASTATIN 20 MG TAB PO SCH (22:09)
[2021-11-23 06:00] VITALS: BP 117/49
[2021-11-23 07:09] LABS: CALCIUM LEVEL 9.3 MG/DL (8.8-10.2); CREATININE FOR GFR 1.42 MG/DL (0.55-1.30); POTASSIUM SERUM 4.3 MEQ/L (3.5-5.1)
[2021-11-23] MEDS: HumaLOG INSULIN (NovoLOG) PER UNIT SC SCH ×4 (07:30→20:53)
[2021-11-23] MEDS: METOPROLOL TART 50 MG TAB PO SCH ×2 (08:51→20:52)
[2021-11-23] MEDS: APIXABAN 5 MG TAB (ELIQUIS) PO SCH ×2 (08:56→20:51)
[2021-11-23] MEDS: FLUoxetine 20 MG CAP PO SCH (08:56)
[2021-11-23] MEDS: buPROPion **SR TABLET** (ZYBAN) 150MG PO SCH ×2 (08:56→20:52)
[2021-11-23] MEDS: allopurinoL 100 MG TAB PO SCH (08:56)
[2021-11-23] MEDS: DOCUSATE SODIUM 100MG CAPSULE PO SCH ×2 (08:56→20:52)
[2021-11-23] MEDS: MAGNESIUM OXIDE 400MG TAB (MAG-OX) PO SCH ×2 (08:56→20:52)
[2021-11-23 09:37] LABS: ABG BASE EXCESS 3.2 (-2.0-2.0); ABG HCO3 26.6 MEQ/L (22.0-26.0); ABG O2 SATURATION 98.6 % (95.0-99.0); ABG PARTIAL PRESSURE CO2 36.4 mmHg (35.0-45.0); ABG PARTIAL PRESSURE O2 112.1 mmHg (75.0-100.0); ABG STANDARD HCO3 27.4 MEQ/L (22.0-26.0); ABG TOTAL CO2 27.7 MEQ/L (23.0-31.0); ABG pH (ARTERIAL) 7.482 UNITS (7.350-7.450)
--- NOTE | 2021-11-23 10:32 | REP ---
INDICATION: SOB COMPARISON: 11/21/2021 TECHNIQUE: Portable AP view of the chest FINDINGS: Mediastinum and cardiac silhouette are stable. Increasing lower lobe opacities/consolidations. No obvious effusion. No pneumothorax. IMPRESSION: Increasing lower lobe opacities. <Electronically signed by Aakash Richard > 11/23/21 [id number]
[2021-11-23] MEDS: SIMVASTATIN 20 MG TAB PO SCH (20:51)
[2021-11-23] MEDS: NIACIN SR (NIASPAN) 500 MG TAB PO SCH (20:52)
[2021-11-24 06:00] VITALS: BP 137/72
[2021-11-24 06:27] LABS: BLOOD UREA NITROGEN 24 MG/DL (7-18); CALCIUM LEVEL 8.9 MG/DL (8.8-10.2); CARBON DIOXIDE LEVEL 33 MEQ/L (21-32); CHLORIDE LEVEL 101 MEQ/L (98-107); CREATININE FOR GFR 1.54 MG/DL (0.55-1.30); GLOMERULAR FILTRATION RATE 35.6 (>45); GLUCOSE, FASTING 122 MG/DL (70-100); POTASSIUM SERUM 3.7 MEQ/L (3.5-5.1); SODIUM LEVEL 139 MEQ/L (136-145)
[2021-11-24] MEDS ORDERED: FUROSEMIDE 40MG/4ML VIAL (J1940) IV ONE (07:25)
[2021-11-24] MEDS: HumaLOG INSULIN (NovoLOG) PER UNIT SC SCH ×4 (07:30→20:44)
[2021-11-24] MEDS: FUROSEMIDE 40 MG TAB PO SCH ×2 (08:13→13:17)
[2021-11-24] MEDS: FLUoxetine 20 MG CAP PO SCH (08:13)
[2021-11-24] MEDS: DOCUSATE SODIUM 100MG CAPSULE PO SCH ×2 (08:14→20:43)
[2021-11-24] MEDS: DIGOXIN 0.125 MG TAB PO SCH (08:14)
[2021-11-24] MEDS: allopurinoL 100 MG TAB PO SCH (08:14)
[2021-11-24] MEDS: buPROPion **SR TABLET** (ZYBAN) 150MG PO SCH ×2 (08:14→20:43)
[2021-11-24] MEDS: CALCITRIOL 0.25 MCG CAP (S0169) PO SCH (08:14)
[2021-11-24] MEDS: APIXABAN 5 MG TAB (ELIQUIS) PO SCH ×2 (08:14→20:43)
[2021-11-24] MEDS: MAGNESIUM OXIDE 400MG TAB (MAG-OX) PO SCH ×2 (08:15→20:38)
--- NOTE | 2021-11-24 08:26 | IPN ---
PROGRESS NOTE DATE: 11/24/2021 SUBJECTIVE: Over the weekend, patient was agitated, wanted to know why she was here. She is currently awaiting placement but developed acute kidney injury. The patient has had no change in her lower extremity edema. She denies chest pain, pressure, tightness, says that she has slight shortness of breath but denies any dyspnea on exertion, PND or orthopnea, no fever, chills or cough. Repeat chest x-ray shows increasing opacity since her Lasix discontinued due to acute kidney injury. OBJECTIVE: Vital signs: Temperature 98.6, pulse 78, respiratory rate 16, blood pressure 137/72, 96% on room air. General: The patient is awake, alert and oriented to herself. She is answering questions appropriately. No conversational dyspnea. HEENT: No JVD, thyromegaly or cervical lymphadenopathy. Lungs: Diminished with bibasilar crackles. Heart: S1, S2, sinus rhythm. Abdomen: Obese, soft, nontender, nondistended. Extremities: No cyanosis or clubbing with nonpitting edema. LABORATORY DATA: CBC, metabolic panel are notable for a creatinine of 1.54 from normal creatinine of 0.98 on admission. Chest x-ray, 11/23: Increasing opacities in the lower lobe, no effusion, no pneumothorax. ASSESSMENT AND PLAN: 1. This is a 71-year-old female awaiting placement, developed acute kidney injury after being diuresed for congestive heart failure and was on 60 mg of Lasix b.i.d., developed creatinine of 1.6 from admission creatinine of 0.98. Renal ultrasound was negative for obstructive uropathy. Patient had been taken off Lasix for three days with some improvement in creatinine to 1.4 but chest x-ray showing increased opacities. The patient's creatinine today is 1.54. She is kept on strict Is and Os and daily weights today and will be changed to acute status. Repeat chest x-ray later today, monitor electrolytes while back on Lasix. She will be given Lasix this morning so long as the blood pressure permits. Her metoprolol will be help temporarily for rate control in order to allow for enough blood pressure for diuresis. If needed, we can use digoxin for rate control. For now, we will give one dose 0.125 mg and check a Digoxin level in the morning. Digoxin is to be held for a heart rate less than 60, sinus pause or heart block or creatinine greater than 1.8. Check Digoxin level in the morning. 2. Atrial fibrillation, currently rate controlled on anticoagulation. Due to need for diuresis, patient's metoprolol has been discontinued temporarily to allow for enough blood pressure for Lasix to be used. Digoxin will be given x1 dose, 0.125 mg today, check Digoxin level in the morning, may increase dose depending on patient's heart rate control. 3. Obesity, BMI of 35.7 complicating care. 4. Acute delirium secondary to renal failure. She is only oriented to person but is appropriate with review of systems. 5. Grieving. Patient had family recently. She is continued on Bupropion and fluoxetine. 6. Type 2 diabetes on sliding scale and consistent carbohydrate diet, gabapentin for neuropathy.
--- NOTE | 2021-11-24 08:44 | REP ---
INDICATION: sob. COMPARISON: Multiple the latest 11/23/2021 a portable exam TECHNIQUE: AP and lateral FINDINGS: The technique utilized in obtaining the radiograph has magnified the cardiac silhouette and accentuated the interstitial markings. The cardiomediastinal silhouette appears stable. Patchy right basilar opacities seen previously have improved markedly. Opacities seen silhouetting out the diaphragmatic surface of the left lung have also improved significantly. No acute patchy parenchymal opacities or pleural effusions have developed. There is no change in the osseous structures. IMPRESSION: There is been improvement as described above. Continued follow-up is suggested. <Electronically signed by Ramirez Austin > 11/24/21 [id number]
[2021-11-24 09:12] LABS: DIGOXIN LEVEL < 0.1 NG/ML (0.5-2.0)
[2021-11-24 09:17] LABS: MAGNESIUM LEVEL 2.3 MG/DL (1.8-2.4)
[2021-11-24 12:50] LABS: CALCIUM LEVEL 10.2 MG/DL (8.8-10.2); CREATININE FOR GFR 1.58 MG/DL (0.55-1.30); GLOMERULAR FILTRATION RATE 34.5 (>45); POTASSIUM SERUM 4.2 MEQ/L (3.5-5.1)
[2021-11-24 14:00] VITALS: BP 144/66
[2021-11-24 16:36] LABS: CALCIUM LEVEL 9.7 MG/DL (8.8-10.2); CREATININE FOR GFR 1.58 MG/DL (0.55-1.30); GLOMERULAR FILTRATION RATE 34.5 (>45); POTASSIUM SERUM 4.2 MEQ/L (3.5-5.1)
[2021-11-24 19:24] VITALS: BP 144/66
[2021-11-24 20:00] VITALS: BP 147/67
[2021-11-24] MEDS: NIACIN SR (NIASPAN) 500 MG TAB PO SCH (20:43)
[2021-11-24] MEDS: SIMVASTATIN 20 MG TAB PO SCH (20:43)
[2021-11-24 20:49] LABS: CALCIUM LEVEL 9.6 MG/DL (8.8-10.2); CREATININE FOR GFR 1.49 MG/DL (0.55-1.30); GLOMERULAR FILTRATION RATE 36.9 (>45); POTASSIUM SERUM 4.1 MEQ/L (3.5-5.1)
[2021-11-25] MEDS: ACETAMINOPHEN TAB 650MG DOSE (2X325MG) PO PRN (00:06)
[2021-11-25 06:00] VITALS: BP 127/59
[2021-11-25 06:37] LABS: CALCIUM LEVEL 9.3 MG/DL (8.8-10.2); CREATININE FOR GFR 1.46 MG/DL (0.55-1.30); GLOMERULAR FILTRATION RATE 37.8 (>45); POTASSIUM SERUM 3.7 MEQ/L (3.5-5.1)
[2021-11-25] MEDS: HumaLOG INSULIN (NovoLOG) PER UNIT SC SCH ×4 (07:30→20:40)
[2021-11-25] MEDS: FLUoxetine 20 MG CAP PO SCH (08:43)
[2021-11-25] MEDS: buPROPion **SR TABLET** (ZYBAN) 150MG PO SCH ×2 (08:43→20:51)
[2021-11-25] MEDS: DIGOXIN 0.125 MG TAB PO SCH (08:44)
[2021-11-25] MEDS: FUROSEMIDE 40 MG TAB PO SCH ×2 (08:44→20:52)
[2021-11-25] MEDS: APIXABAN 5 MG TAB (ELIQUIS) PO SCH ×2 (08:44→20:51)
[2021-11-25] MEDS: DOCUSATE SODIUM 100MG CAPSULE PO SCH ×2 (08:44→20:51)
[2021-11-25] MEDS: MAGNESIUM OXIDE 400MG TAB (MAG-OX) PO SCH ×2 (08:44→20:43)
[2021-11-25] MEDS: allopurinoL 100 MG TAB PO SCH (08:44)
[2021-11-25] MEDS ORDERED: METO1TAB87 PO (09:07)
[2021-11-25] MEDS ORDERED: ELIQ5TAB PO (09:07)
--- NOTE | 2021-11-25 13:30 | IPNPDOC ---
Text Note Date of Service The patient was seen on 11/25/21. NOTE Subjective: Patient is a 71-year-old female with a PMHx of HTN, Diastolic CHF, CARLA, DLP, DM2 w/ Neuropathy, CKD3, Chronic back pain 2/2 DDD / Spinal stenosis, Morbid obesity (BMI 48), Gout, Venous insufficiency, Depression , who presents to the ER on 11/14 with complaints of shortness of breath. Patient was admitted to hospitalist service for further evaluation and treatment of CHF exacerbation. Patient was seen and examined at the bedside. Currently patient denies any nausea, vomiting, chest pain, shortness breath, palpitations. She is not expe riencing abdominal pain, diarrhea, or any urinary discomfort. Objective: Vitals (See below) General: Lying in bed, no acute distress, comfortable, Awake / Alert HEENT: NC, AT CVS: RRR, +S1S2 Lungs: Fair air entry b/l, faint crackles at bases. No evidence of wheezing or rhonchi Abdomen: Soft, ND, NT Extremities: Chronic lower extremity edema with trace to 1+ pitting noted Imaging: CXR 11/14: Diffuse bilateral airspace disease. Differential diagnosis includes early CHF, multifocal pneumonia, and COVID-[address] 11/14: 1. Findings described above suggest CHF. Differential diagnosis cannot exclude multifocal pneumonia. ECHO 11/14: 1. Normal left ventricle and diastolic dimensions and wall thicknesses. Moderate global left ventricular (LV) hypokinesis. Moderate reduction of overall LV systolic function. Left ventricular ejection fraction (LVEF) 40% (3D). Grade 2 LV diastolic dysfunction (pseudonormal diastolic filling pattern). 2. Suggestive of severe elevation of estimated right ventricle systolic pressure (60-65 mmHg). Suggestive of elevated central venous pressure (CVP) (15-20 mmHg). Normal right ventricle size and systolic function. 3. Mild left atrial dilatation by left atrial volume index. 4. Mild aortic valve sclerosis of a 3-cusp aortic valve. No aortic regurgitation. 5. Mild mitral annular calcification. Very mild mitral regurgitation. 6. Very small pericardial effusion. No diastolic chamber collapse. 7. Left pleural effusion. Renal US 11/20: Unremarkable renal ultrasonography. No significant change compared to the prior exam. CXR 11/21: Findings suggest mild improvement as compared with 11/14/2021. CXR 11/23: Increasing lower lobe opacities. CXR 11/24: There is been improvement as described above. Continued follow-up is suggested. Assessment and plan: Decompensated Systolic (EF: 40%) and Diastolic CHF (Grade 2) - Currently patient is saturating well on room air - Faint crackles appreciated at bases / LE edema noted - c/w strict ins/outs, daily weights, fluid restriction - Will resume Furosemide 40 BID Atrial fibrillation - c/w rate / rhythm control with Digoxin - Will resume reduced dose of metoprolol - c/w full anticoagulation with Eliquis CKD3 - Baseline Cr of 1.4-1.8 - Renal US noted - Creatinine appears to be at baseline Delirium - c/w reorientation HTN - BP well controlled CARLA - May use home CPAP while inpatient DLP - c/w Simvastatin DM2 w/ Neuropathy - c/w ISS Chronic back pain 2/2 DDD / Spinal stenosis Morbid obesity - BMI 35.7 - Complicating medical care Gout - c/w Allopurinol Venous insufficiency Depression - Recent grieving 2/2 family - c/w Bupropion, Fluoxetine DVT prophylaxis - c/w full anticoagulation with Eliquis Disposition: - c/w ALC status - Awaiting transition to rehab VS,Cristóbal, I+O VS, Cristóbal, I+O Laboratory Tests 11/24/21 15:50 11/24/21 20:11 11/25/21 05:21 Vital Signs Date Time Temp Pulse Resp B/P (MAP) Pulse Ox O2 Delivery O2 Flow Rate FiO2 11/25/21 08:44 80 11/25/21 06:00 98.8 20 127/59 (81) 91 Room Air 11/23/21 06:00 2.0 I&O- Last 24 Hours up to 6 AM 11/25/21 06:00 Intake Total 780 ml Output Total 0 ml Balance 780 ml WYATT SAMUEL MD Nov 25, 2021 13:30
[2021-11-25 14:00] VITALS: BP 128/60
[2021-11-25] MEDS: METOPROLOL TART 25 MG TABLET PO SCH ×2 (14:24→20:52)
[2021-11-25] MEDS: NIACIN SR (NIASPAN) 500 MG TAB PO SCH (20:51)
[2021-11-25] MEDS: SIMVASTATIN 20 MG TAB PO SCH (20:51)
[2021-11-26 05:21] LABS: BASO % 0.5 % (0.0-1.0); EOS # 0.2 10^3/uL (0.0-0.5); EOS % 4.2 % (0.0-3.0); HEMATOCRIT 33.2 % (36.0-47.0); HEMOGLOBIN 10.6 g/dl (12.0-15.5); LYMPH # 1.9 10^3/uL (1.5-5.0); LYMPH % 34.2 % (24.0-44.0); MEAN CORPUSCULAR HEMOGLOBIN 32.4 pg (27.0-33.0); MEAN CORPUSCULAR HGB CONC 31.9 g/dl (32.0-36.5); MEAN CORPUSCULAR VOLUME 101.5 fl (80.0-96.0); MONO # 0.7 10^3/uL (0.0-0.8); MONO % 12.7 % (2.0-8.0); NEUTROPHILS # 2.7 10^3/uL (1.5-8.5); NEUTROPHILS % 48.2 % (36.0-66.0); PLATELET COUNT, AUTOMATED 203 10^3/uL (150-450); RED BLOOD COUNT 3.27 10^6/uL (4.00-5.40); WHITE BLOOD COUNT 5.5 10^3/uL (4.0-10.0)
[2021-11-26 05:45] LABS: CALCIUM LEVEL 9.5 MG/DL (8.8-10.2); CREATININE FOR GFR 1.4 MG/DL (0.55-1.30); GLOMERULAR FILTRATION RATE 39.7 (>45); MAGNESIUM LEVEL 1.8 MG/DL (1.8-2.4); POTASSIUM SERUM 3.8 MEQ/L (3.5-5.1)
[2021-11-26 06:00] VITALS: BP 100/74
[2021-11-26] MEDS: HumaLOG INSULIN (NovoLOG) PER UNIT SC SCH ×2 (07:30→12:00)
[2021-11-26 09:00] VITALS: BP 100/74
[2021-11-26] MEDS: METOPROLOL TART 25 MG TABLET PO SCH (09:00)
[2021-11-26] MEDS: FUROSEMIDE 40 MG TAB PO SCH (09:00)
[2021-11-26] MEDS: DIGOXIN 0.125 MG TAB PO SCH (09:27)
[2021-11-26] MEDS: buPROPion **SR TABLET** (ZYBAN) 150MG PO SCH (09:27)
[2021-11-26] MEDS: allopurinoL 100 MG TAB PO SCH (09:27)
[2021-11-26] MEDS: CALCITRIOL 0.25 MCG CAP (S0169) PO SCH (09:27)
[2021-11-26] MEDS: MAGNESIUM OXIDE 400MG TAB (MAG-OX) PO SCH (09:27)
[2021-11-26] MEDS: FLUoxetine 20 MG CAP PO SCH (09:28)
[2021-11-26] MEDS: DOCUSATE SODIUM 100MG CAPSULE PO SCH (09:28)
[2021-11-26] MEDS: APIXABAN 5 MG TAB (ELIQUIS) PO SCH (09:28)
[2021-11-26 11:10] VITALS: BP 135/68
[2021-11-26] MEDS ORDERED: FURO40TA2 PO (11:24)
[2021-11-26] MEDS ORDERED: METO1TAB87 PO (11:24)
--- NOTE | 2021-11-26 13:52 | DS.PDOC ---
Discharge Summary General Date of Admission Nov 14, 2021 at 14:03 Date of Discharge 11/26/2021 Discharge Summary PROCEDURES PERFORMED DURING STAY: [None]. ADMITTING DIAGNOSES / DISCHARGE DIAGNOSES: Decompensated Systolic (EF: 40%) and Diastolic CHF (Grade 2) Atrial fibrillation CKD3 Delirium HTN CARLA DLP DM2 w/ Neuropathy Chronic back pain 2/2 DDD / Spinal stenosis Morbid obesity Gout Venous insufficiency Depression DVT prophylaxis COMPLICATIONS/CHIEF COMPLAINT: SOB HISTORY OF PRESENT ILLNESS: Patient is a 71-year-old female with a PMHx of HTN, Diastolic CHF, CARLA, DLP, DM2 w/ Neuropathy, CKD3, Chronic back pain 2/2 DDD / Spinal stenosis, Morbid obesity (BMI 48), Gout, Venous insufficiency, Depression , who presents to the ER on 11/14 with complaints of shortness of breath. Patient was admitted to hospitalist service for further evaluation and treatment of CHF exacerbation. Patient was seen and examined at the bedside. Patient denies any significant shortness of breath or cough. Denies any nausea, vomiting, abdominal pain or diarrhea. She denies any urinary discomfort. Patient is upset that she cannot go home. I've advised her that rehabilitation is probably the best option prior to getting home. HOSPITAL COURSE: Decompensated Systolic (EF: 40%) and Diastolic CHF (Grade 2) - Patient denies any significant shortness of breath or cough - She remains saturating well on room air - Auscultation this morning does not reveal any crackles. Lower extremities reveal trace edema on top of chronic lymphadenopathy - c/w strict ins/outs, daily weights, fluid restriction - c/w Furosemide 40 BID Atrial fibrillation - c/w rate / rhythm control with Digoxin while inpatient - c/w reduced dose of metoprolol on discharge - c/w full anticoagulation with Eliquis CKD3 - Baseline Cr of 1.4-1.8 - Renal US noted - Creatinine appears to be at baseline Delirium - c/w reorientation HTN - BP well controlled CARLA - May use home CPAP while inpatient DLP - c/w Simvastatin DM2 w/ Neuropathy - c/w ISS Chronic back pain 2/2 DDD / Spinal stenosis Morbid obesity - BMI 35.7 - Complicating medical care Gout - c/w Allopurinol Venous insufficiency Depression - Recent grieving 2/2 family - c/w Bupropion, Fluoxetine DVT prophylaxis - c/w full anticoagulation with Eliquis DISCHARGE MEDICATIONS: Please see below. ALLERGIES: Please see below. PHYSICAL EXAMINATION ON DISCHARGE: Vitals (See below) General: Lying in bed, appears comfortable, Awake / Alert HEENT: NC, AT CVS: +S1S2 Lungs: Air entry remains fair bilaterally without any auscultated evidence of crackles, wheezing or rhonchi Abdomen: Soft, ND, NT Extremities: Lower extremities reveal chronic lymphedema with trace pitting on top LABORATORY DATA: Please see below. IMAGING: CXR 11/14: Diffuse bilateral airspace disease. Differential diagnosis includes early CHF, multifocal pneumonia, and COVID-[address] 11/14: 1. Findings described above suggest CHF. Differential diagnosis cannot exclude multifocal pneumonia. ECHO 11/14: 1. Normal left ventricle and diastolic dimensions and wall thicknesses. Moderate global left ventricular (LV) hypokinesis. Moderate reduction of overall LV systolic function. Left ventricular ejection fraction (LVEF) 40% (3D). Grade 2 LV diastolic dysfunction (pseudonormal diastolic filling pattern). 2. Suggestive of severe elevation of estimated right ventricle systolic pressure (60-65 mmHg). Suggestive of elevated central venous pressure (CVP) (15-20 mmHg). Normal right ventricle size and systolic function. 3. Mild left atrial dilatation by left atrial volume index. 4. Mild aortic valve sclerosis of a 3-cusp aortic valve. No aortic regurgitation. 5. Mild mitral annular calcification. Very mild mitral regurgitation. 6. Very small pericardial effusion. No diastolic chamber collapse. 7. Left pleural effusion. Renal US 11/20: Unremarkable renal ultrasonography. No significant change compared to the prior exam. CXR 11/21: Findings suggest mild improvement as compared with 11/14/2021. CXR 11/23: Increasing lower lobe opacities. CXR 11/24: There is been improvement as described above. Continued follow-up is suggested. ACTIVITY: [As tolerated]. DISCHARGE PLAN: Follow-up with primary care provider, and cardiology within the next 7 days Remain compliant with treatment plan and medications Return to the ER if you experience any problems DISPOSITION: [facility]. DISCHARGE CONDITION: [Stable]. TIME SPENT ON DISCHARGE: 35 minutes. Vital Signs/I&Os Vital Signs Date Time Temp Pulse Resp B/P (MAP) Pulse Ox O2 Delivery O2 Flow Rate FiO2 11/26/21 11:10 135/68 (90) 11/26/21 09:27 79 11/26/21 06:00 99.2 19 93 Room Air 11/23/21 06:00 2.0 I&O- Last 24 Hours up to 6 AM 11/26/21 06:00 Intake Total 100 ml Balance 100 ml Laboratory Data Labs 24H Laboratory Tests 2 11/25/21 16:44: Bedside Glucose (Misc Panel) 101 11/25/21 20:26: Bedside Glucose (Misc Panel) 93 11/26/21 04:49: Immature Granulocyte % (Auto) 0.2, Neutrophils (%) (Auto) 48.2, Lymphocytes (%) (Auto) 34.2, Monocytes (%) (Auto) 12.7H, Eosinophils (%) (Auto) 4.2H, Basophils (%) (Auto) 0.5, Neutrophils # (Auto) 2.7, Lymphocytes # (Auto) 1.9, Monocytes # (Auto) 0.7, Eosinophils # (Auto) 0.2, Basophils # (Auto) 0.0, Nucleated Red Blood Cells % (auto) 0.0, Anion Gap 9, Glomerular Filtration Rate 39.7L, Calcium Level 9.5, Magnesium Level 1.8 11/26/21 11:40: Coronavirus (COVID-19)(PCR) NEGATIVE 11/26/21 12:05: Bedside Glucose (Misc Panel) 94 CBC/BMP Laboratory Tests 11/26/21 04:49 FSBS Laboratory Tests Test 11/25/21 16:44 11/25/21 20:26 11/26/21 12:05 Range/Units Bedside Glucose (Misc Panel) 101 93 94 80-115 MG/DL Discharge Medications Scheduled Allopurinol (Allopurinol) 100 Mg Tablet, 100 MG PO DAILY, (Reported) Apixaban (Eliquis) 5 Mg Tablet, 5 MG PO BID Bupropion Hcl (Bupropion HCl Sr) 150 Mg Tab.sr.12h, 150 MG PO BID, (Reported) Calcitriol (Calcitriol) 0.25 Mcg Capsule, 0.25 MCG PO 3XW, (Reported) MON/WED/FRI Colchicine (Colchicine) 0.6 Mg Tablet, 0.6 MG PO DAILY, (Reported) Docusate Sodium (Docusate Sodium) 100 Mg Capsule, 100 MG PO BID, (Reported) Fluoxetine Hcl (Fluoxetine HCl) 40 Mg Capsule, 40 MG PO DAILY, (Reported) Furosemide (Furosemide) 40 Mg Tablet, 40 MG PO BID Hold for SBP < 110 Gabapentin (Gabapentin) 600 Mg Tablet, 600 MG PO TID, (Reported) Glipizide (Glipizide ER) 5 Mg Tab, 5 MG PO DAILY, (Reported) Magnesium Oxide (Magnesium Oxide) 400 Mg Tab, 400 MG PO 3XW, (Reported) WED, WED, WED Metoprolol Tartrate (Metoprolol Tartrate) 25 Mg Tablet, 0.5 TAB PO BID Hold for SBP < 110 or HR < 60 Niacin (Niacin ER) 1,000 Mg Tab, 1,000 MG PO QHS, (Reported) Potassium Chloride (Potassium Chloride) 20 Meq Tab.er.prt, 40 MEQ PO DAILY, (Reported) Simvastatin (Simvastatin) 20 Mg Tablet, 20 MG PO QHS, (Reported) Tizanidine HCl (Tizanidine HCl) 2 Mg Tablet, 2 MG PO QHS, (Reported) Allergies Coded Allergies: No Known Allergies (Verified Allergy, Unknown, 06/24/21) WYATT SAMUEL MD Nov 26, 2021 13:51
== END 2021-11-26 13:44 | DRG 291 ==
LOC: M ED 10:51 → M ED INP 14:03 → ENRESERV 14:26 → M MSPAV 16:09
PROVIDERS: ADMIT Internal Medicine; ATTEND Internal Medicine
DX: I13.0 Hypertensive heart and chronic kidney disease with heart failure and stage 1 through stage 4 chronic kidney disease, or unspecified chronic kidney disease (principal); I50.43 Acute on chronic combined systolic (congestive) and diastolic (congestive) heart failure; N17.9 Acute kidney failure, unspecified; Z68.42 Body mass index [BMI] 45.0-49.9, adult; I48.91 Unspecified atrial fibrillation; E11.40 Type 2 diabetes mellitus with diabetic neuropathy, unspecified; F43.21 Adjustment disorder with depressed mood; N18.30 Chronic kidney disease, stage 3 unspecified; G47.33 Obstructive sleep apnea (adult) (pediatric); E66.01 Morbid (severe) obesity due to excess calories; M10.9 Gout, unspecified; I87.8 Other specified disorders of veins; F32.A Depression, unspecified; Z79.899 Other long term (current) drug therapy; Z85.44 Personal history of malignant neoplasm of other female genital organs

== ENCOUNTER → 2021-12-01 | Outpatient (REF) ==
[~2021-12-01] MED LIST changes: +METO1TAB87 PO; +POTA20TA6 PO; +TIZA2TA PO
[2021-12-01 09:44] LABS: HEMATOCRIT 37.7 % (36.0-47.0); HEMOGLOBIN 11.9 g/dl (12.0-15.5); MEAN CORPUSCULAR HEMOGLOBIN 32.2 pg (27.0-33.0); MEAN CORPUSCULAR HGB CONC 31.6 g/dl (32.0-36.5); MEAN CORPUSCULAR VOLUME 101.9 fl (80.0-96.0); PLATELET COUNT, AUTOMATED 233 10^3/uL (150-450); WHITE BLOOD COUNT 5.7 10^3/uL (4.0-10.0)
[2021-12-01 10:05] LABS: HEMOGLOBIN A1c 5.2 %
[2021-12-01 10:06] LABS: ALBUMIN 2.8 GM/DL (3.2-5.2); BILIRUBIN,TOTAL 0.5 MG/DL (0.2-1.0); CALCIUM LEVEL 9.9 MG/DL (8.8-10.2); CHOLESTEROL RISK RATIO 2.907 (<5); CREATININE FOR GFR 1.55 MG/DL (0.55-1.30); ERYTHROCYTE SEDIMENTATION RATE 72 mm/hr (0-30); GLOMERULAR FILTRATION RATE 35.3 (>45); MAGNESIUM LEVEL 1.7 MG/DL (1.8-2.4); POTASSIUM SERUM 4.5 MEQ/L (3.5-5.1)
[2021-12-01 10:13] LABS: FOLATE 6.2 NG/ML (>5.4)
== END ==
LOC: SKLAB4 07:00
PROVIDERS: ATTEND Internal Medicine
DX: D64.9 Anemia, unspecified (principal); I50.9 Heart failure, unspecified; E11.9 Type 2 diabetes mellitus without complications; R74.8 Abnormal levels of other serum enzymes

== ENCOUNTER → 2021-12-03 | Outpatient (REF) ==
[~2021-12-03] MED LIST changes: +FLUO-96 PO; -FLUO20CA20 PO; -LEVO250T12 PO; +LEVO250T3 PO; +POTA-151 PO; -POTA20TA6 PO
== END ==
LOC: SKLAB4 07:00
PROVIDERS: ATTEND Internal Medicine
DX: Z20.822 Contact with and (suspected) exposure to COVID-19 (principal); Z53.9 Procedure and treatment not carried out, unspecified reason

== ENCOUNTER → 2021-12-04 | Outpatient (REF) ==
[~2021-12-04] MED LIST changes: -FLUO-96 PO; +FLUO20CA20 PO; +LEVO250T12 PO; -LEVO250T3 PO; -POTA-151 PO; +POTA20TA6 PO
== END ==
LOC: SKLAB4 10:32
PROVIDERS: ATTEND Internal Medicine
DX: S20.229A Contusion of unspecified back wall of thorax, initial encounter (principal); W19.XXXA Unspecified fall, initial encounter

== ENCOUNTER → 2021-12-05 | Outpatient (REF) ==
[~2021-12-05] MED LIST changes: +FLUO-96 PO; -FLUO20CA20 PO; -LEVO250T12 PO; +LEVO250T3 PO; +POTA-151 PO; -POTA20TA6 PO
[2021-12-05 09:23] LABS: HEMATOCRIT 31.9 % (36.0-47.0); HEMOGLOBIN 10.1 g/dl (12.0-15.5); MEAN CORPUSCULAR HEMOGLOBIN 32.3 pg (27.0-33.0); MEAN CORPUSCULAR HGB CONC 31.7 g/dl (32.0-36.5); MEAN CORPUSCULAR VOLUME 101.9 fl (80.0-96.0); PLATELET COUNT, AUTOMATED 169 10^3/uL (150-450); RED BLOOD COUNT 3.13 10^6/uL (4.00-5.40); WHITE BLOOD COUNT 8.2 10^3/uL (4.0-10.0)
[2021-12-05 09:44] LABS: CALCIUM LEVEL 9.5 MG/DL (8.8-10.2); CREATININE FOR GFR 2.56 MG/DL (0.55-1.30); GLOMERULAR FILTRATION RATE 19.8 (>45); POTASSIUM SERUM 4.6 MEQ/L (3.5-5.1)
== END ==
LOC: SKLAB4 10:09
PROVIDERS: ATTEND Internal Medicine
DX: T14.8XXA Other injury of unspecified body region, initial encounter (principal); W19.XXXA Unspecified fall, initial encounter

== ENCOUNTER → 2021-12-08 | Outpatient (REF) ==
[2021-12-08 08:02] LABS: HEMOGLOBIN 10.5 g/dl (12.0-15.5); MEAN CORPUSCULAR HEMOGLOBIN 32.2 pg (27.0-33.0); MEAN CORPUSCULAR HGB CONC 30.9 g/dl (32.0-36.5); MEAN CORPUSCULAR VOLUME 104.3 fl (80.0-96.0); PLATELET COUNT, AUTOMATED 160 10^3/uL (150-450); RED BLOOD COUNT 3.26 10^6/uL (4.00-5.40); WHITE BLOOD COUNT 7.9 10^3/uL (4.0-10.0)
[2021-12-08 08:26] LABS: CALCIUM LEVEL 9.6 MG/DL (8.8-10.2); CREATININE FOR GFR 1.59 MG/DL (0.55-1.30); GLOMERULAR FILTRATION RATE 34.3 (>45)
== END ==
LOC: SKLAB4 06:56
PROVIDERS: ATTEND Internal Medicine
DX: I50.9 Heart failure, unspecified (principal); N18.9 Chronic kidney disease, unspecified; T14.8XXA Other injury of unspecified body region, initial encounter

== ENCOUNTER → 2021-12-08 | Outpatient (CLI) | payer MEDICARE, MEDICAID | LOC: M RAD 10:14 | PROVIDERS: ATTEND Nurse Practitioner Family | DX: R41.82 Altered mental status, unspecified (principal) ==

== ENCOUNTER → 2021-12-11 | Outpatient (REF) ==
[2021-12-11 08:31] LABS: CALCIUM LEVEL 9.5 MG/DL (8.8-10.2); CREATININE FOR GFR 1.21 MG/DL (0.55-1.30); POTASSIUM SERUM 4.7 MEQ/L (3.5-5.1)
[2021-12-11 11:18] LABS: HEMATOCRIT 28.6 % (36.0-47.0); HEMOGLOBIN 8.8 g/dl (12.0-15.5); MEAN CORPUSCULAR HEMOGLOBIN 31.7 pg (27.0-33.0); MEAN CORPUSCULAR HGB CONC 30.8 g/dl (32.0-36.5); MEAN CORPUSCULAR VOLUME 102.9 fl (80.0-96.0); PLATELET COUNT, AUTOMATED 157 10^3/uL (150-450); RED BLOOD COUNT 2.78 10^6/uL (4.00-5.40); WHITE BLOOD COUNT 5.7 10^3/uL (4.0-10.0)
== END ==
LOC: SKLAB4 11:06
PROVIDERS: ATTEND Internal Medicine
DX: N18.9 Chronic kidney disease, unspecified (principal); D64.9 Anemia, unspecified

== ENCOUNTER → 2021-12-13 | Outpatient (REF) | payer MEDICARE, MEDICAID ==
[~2021-12-13] MED LIST changes: -OMEP-221; +OMEP40CA5; -POTA10TA14 PO; +POTA1TAB24 PO
== END ==
LOC: SKLAB4 11:36
PROVIDERS: ATTEND Internal Medicine
DX: D64.9 Anemia, unspecified (principal)

== ENCOUNTER → 2021-12-17 | Outpatient (REF) | payer MEDICARE, MEDICAID | LOC: SKLAB4 07:00 → M LAB 07:00 | PROVIDERS: ATTEND Nurse Practitioner Family | DX: D64.9 Anemia, unspecified (principal) ==

== ENCOUNTER → 2021-12-19 | Outpatient (REF) ==
[2021-12-19 13:48] LABS: CALCIUM LEVEL 9.4 MG/DL (8.8-10.2); CREATININE FOR GFR 1.99 MG/DL (0.55-1.30); GLOMERULAR FILTRATION RATE 26.5 (>45); POTASSIUM SERUM 5.1 MEQ/L (3.5-5.1)
== END ==
LOC: SKLAB4 07:00
PROVIDERS: ATTEND Internal Medicine
DX: E86.0 Dehydration (principal)

== ENCOUNTER → 2021-12-23 | Outpatient (REF) | LOC: SKLAB4 12-23 07:00 | PROVIDERS: ATTEND Internal Medicine | DX: N18.6 End stage renal disease (principal) ==

== ENCOUNTER → 2022-01-08 | Outpatient (REF) | payer MEDICARE, MEDICAID, OTHER ==
[2022-01-08 14:27] LABS: CALCIUM LEVEL 9.6 MG/DL (8.8-10.2); CREATININE FOR GFR 1.15 MG/DL (0.55-1.30); GLOMERULAR FILTRATION RATE 49.8 (>45); POTASSIUM SERUM 4.4 MEQ/L (3.5-5.1)
== END ==
LOC: SKLAB4 07:00
PROVIDERS: ATTEND Internal Medicine
DX: I50.9 Heart failure, unspecified (principal)

== ENCOUNTER → 2022-01-15 | Outpatient (REF) | payer MEDICARE, MEDICAID, OTHER ==
[2022-01-15 11:48] LABS: CALCIUM LEVEL 9.1 MG/DL (8.8-10.2); CREATININE FOR GFR 1.3 MG/DL (0.55-1.30); GLOMERULAR FILTRATION RATE 43.2 (>45); POTASSIUM SERUM 4.4 MEQ/L (3.5-5.1)
== END ==
LOC: SKLAB4 07:00
PROVIDERS: ATTEND Internal Medicine
DX: N18.9 Chronic kidney disease, unspecified (principal); I50.9 Heart failure, unspecified

== ENCOUNTER → 2022-02-03 | Outpatient (CLI) | payer MEDICARE, MEDICAID | LOC: M RAD 16:11 | PROVIDERS: ATTEND Internal Medicine | DX: M77.31 Calcaneal spur, right foot (principal); M16.11 Unilateral primary osteoarthritis, right hip; M79.604 Pain in right leg ==

== ENCOUNTER → 2022-02-03 | Outpatient (REF) | payer MEDICARE, MEDICAID | LOC: M RAD 07:00 | PROVIDERS: ATTEND Internal Medicine | DX: M79.604 Pain in right leg (principal) ==

== ENCOUNTER → 2022-02-04 | Outpatient (CLI) | payer MEDICARE, MEDICAID | LOC: M RAD 10:32 | PROVIDERS: ATTEND Nurse Practitioner Adult Health | DX: R93.6 Abnormal findings on diagnostic imaging of limbs (principal) ==

== ENCOUNTER → 2022-02-12 | Outpatient (REF) | payer MEDICARE, MEDICAID | LOC: SKLAB4 09:11 | PROVIDERS: ATTEND Internal Medicine | DX: E78.5 Hyperlipidemia, unspecified (principal); N18.9 Chronic kidney disease, unspecified; D64.9 Anemia, unspecified; Z13.29 Encounter for screening for other suspected endocrine disorder; Z53.9 Procedure and treatment not carried out, unspecified reason ==

== ENCOUNTER → 2022-02-19 | Outpatient (REF) | payer MEDICARE, MEDICAID ==
[2022-02-19 10:59] LABS: PTH INTACT 55.1 PG/ML (18.5-88.0); TOTAL 25(OH) VITAMIN D 37.8 NG/ML (30.0-100.0)
== END ==
LOC: SKLAB4 07:00
PROVIDERS: ATTEND Internal Medicine
DX: F33.1 Major depressive disorder, recurrent, moderate (principal); F43.21 Adjustment disorder with depressed mood; E21.3 Hyperparathyroidism, unspecified; E78.5 Hyperlipidemia, unspecified

== ENCOUNTER 2022-02-27 05:57 | Emergency (ER) | payer MEDICAID, MEDICARE ==
[~2022-02-27] VITALS: Ht 152.4 cm; Wt 73.1 kg
[2022-02-27] MEDS ORDERED: OXYMETAZOLINE 0.05% NASAL SPRAY (AFRIN) ONE (06:15)
[2022-02-27] MEDS ORDERED: NS 500 ML IV ONE ×2 (06:15→13:10)
[2022-02-27 07:01] LABS: BASO % 0.3 % (0.0-1.0); EOS # 0.4 10^3/uL (0.0-0.5); EOS % 4.5 % (0.0-3.0); HEMATOCRIT 29.6 % (36.0-47.0); HEMOGLOBIN 9.6 g/dl (12.0-15.5); LYMPH # 2.2 10^3/uL (1.5-5.0); LYMPH % 27.7 % (24.0-44.0); MEAN CORPUSCULAR HEMOGLOBIN 33.6 pg (27.0-33.0); MEAN CORPUSCULAR HGB CONC 32.4 g/dl (32.0-36.5); MEAN CORPUSCULAR VOLUME 103.5 fl (80.0-96.0); MONO # 0.8 10^3/uL (0.0-0.8); MONO % 9.7 % (2.0-8.0); NEUTROPHILS # 4.6 10^3/uL (1.5-8.5); NEUTROPHILS % 57.3 % (36.0-66.0); PLATELET COUNT, AUTOMATED 188 10^3/uL (150-450); RED BLOOD COUNT 2.86 10^6/uL (4.00-5.40)
[2022-02-27 07:18] LABS: CK-MB VALUE MASS 1.1 NG/ML (<3.6); MB/CK RELATIVE INDEX 5.79 (< OR =4)
[2022-02-27 07:19] LABS: BILIRUBIN,DIRECT 0.2 MG/DL (0.0-0.2); BILIRUBIN,TOTAL 0.6 MG/DL (0.2-1.0); CALCIUM LEVEL 9.3 MG/DL (8.8-10.2); CREATININE FOR GFR 1.78 MG/DL (0.55-1.30); GLOMERULAR FILTRATION RATE 30.1 (>45); POTASSIUM SERUM 4.4 MEQ/L (3.5-5.1); TOTAL PROTEIN 5.3 GM/DL (6.4-8.2)
[2022-02-27 13:45] VITALS: BP 117/56
== END 2022-02-27 14:05 | disposition home or self-care (01) ==
LOC: M ED 05:57
DX: R04.0 Epistaxis (principal); N18.9 Chronic kidney disease, unspecified; E11.9 Type 2 diabetes mellitus without complications; I50.9 Heart failure, unspecified; Z85.42 Personal history of malignant neoplasm of other parts of uterus; Z79.899 Other long term (current) drug therapy; Z79.84 Long term (current) use of oral hypoglycemic drugs; Z79.01 Long term (current) use of anticoagulants

== ENCOUNTER → 2022-02-28 | Outpatient (REF) ==
[2022-02-28 08:27] LABS: HEMATOCRIT 26.9 % (36.0-47.0); HEMOGLOBIN 8.8 g/dl (12.0-15.5); MEAN CORPUSCULAR HEMOGLOBIN 33.8 pg (27.0-33.0); MEAN CORPUSCULAR HGB CONC 32.7 g/dl (32.0-36.5); MEAN CORPUSCULAR VOLUME 103.5 fl (80.0-96.0); PLATELET COUNT, AUTOMATED 184 10^3/uL (150-450); WHITE BLOOD COUNT 13.2 10^3/uL (4.0-10.0)
== END ==
LOC: SKLAB4 02:04
PROVIDERS: ATTEND Internal Medicine
DX: I95.9 Hypotension, unspecified (principal)

== ENCOUNTER → 2022-03-01 | Outpatient (REF) ==
[~2022-03-01] MED LIST changes: +BUPR-70 PO; +BUPR-71 PO; -BUPR100T3 PO; -BUPR150T5 PO
== END ==
LOC: SKLAB4 21:10
PROVIDERS: ATTEND Internal Medicine
DX: D72.829 Elevated white blood cell count, unspecified (principal); Z53.9 Procedure and treatment not carried out, unspecified reason

== ENCOUNTER → 2022-03-01 | Outpatient (REF) ==
[~2022-03-01] MED LIST changes: -BUPR-70 PO; -BUPR-71 PO; +BUPR100T3 PO; +BUPR150T5 PO
[2022-03-01 07:23] LABS: HEMATOCRIT 26.7 % (36.0-47.0); HEMOGLOBIN 8.7 g/dl (12.0-15.5); MEAN CORPUSCULAR HEMOGLOBIN 33.5 pg (27.0-33.0); MEAN CORPUSCULAR HGB CONC 32.6 g/dl (32.0-36.5); MEAN CORPUSCULAR VOLUME 102.7 fl (80.0-96.0); PLATELET COUNT, AUTOMATED 168 10^3/uL (150-450); WHITE BLOOD COUNT 13.4 10^3/uL (4.0-10.0)
[2022-03-02 00:09] LABS: APPEARANCE, URINE CLOUDY (CLEAR); BACTERIA, URINE AUTO 1+ (NEGATIVE); BILIRUBIN, URINE AUTO NEGATIVE (NEGATIVE); BLOOD, URINE BLOOD 2+ (NEGATIVE); COLOR, URINE YELLOW (YELLOW); GLUCOSE, URINE (UA) AUTO NEGATIVE (NEGATIVE); KETONE, URINE AUTO NEGATIVE (NEGATIVE); LEUKOCYTE ESTERASE, URINE AUTO 3+ (NEGATIVE); MUCUS, URINE SMALL (NEGATIVE); NITRITE, URINE AUTO NEGATIVE (NEGATIVE); PROTEIN, URINE AUTO 1+ mg/dL (NEGATIVE); RBC, URINE AUTO 13 /HPF (0-3); SQUAMOUS EPITHELIAL CELL UR AU 4 /HPF (0-6); TRANSITIONAL EPITHELIAL AUTO 6 /HPF; UROBILINOGEN, URINE AUTO 0.2 mg/dL (0.0-2.0); WBC, URINE AUTO TNTC /HPF (0-3)
== END ==
LOC: SKLAB4 01:26
PROVIDERS: ATTEND Internal Medicine
DX: R04.0 Epistaxis (principal)

== ENCOUNTER → 2022-03-02 | Outpatient (REF) | payer MEDICARE ==
[2022-03-02 12:00] LABS: HEMATOCRIT 26.8 % (36.0-47.0); HEMOGLOBIN 8.6 g/dl (12.0-15.5); MEAN CORPUSCULAR HEMOGLOBIN 33.1 pg (27.0-33.0); MEAN CORPUSCULAR HGB CONC 32.1 g/dl (32.0-36.5); MEAN CORPUSCULAR VOLUME 103.1 fl (80.0-96.0); PLATELET COUNT, AUTOMATED 241 10^3/uL (150-450); WHITE BLOOD COUNT 9.2 10^3/uL (4.0-10.0)
[2022-03-02 12:24] LABS: CALCIUM LEVEL 9.2 MG/DL (8.8-10.2); CREATININE FOR GFR 1.91 MG/DL (0.55-1.30); GLOMERULAR FILTRATION RATE 27.7 (>45); POTASSIUM SERUM 3.7 MEQ/L (3.5-5.1)
== END ==
LOC: SKLAB4 07:16
PROVIDERS: ATTEND Internal Medicine
DX: R04.0 Epistaxis (principal)

== ENCOUNTER → 2022-03-04 | Outpatient (REF) | payer MEDICARE ==
[~2022-03-04] MED LIST changes: +BUPR-70 PO; +BUPR-71 PO; -BUPR100T3 PO; -BUPR150T5 PO
[2022-03-04 12:02] LABS: HEMATOCRIT 26.4 % (36.0-47.0); HEMOGLOBIN 8.6 g/dl (12.0-15.5); MEAN CORPUSCULAR HEMOGLOBIN 33.9 pg (27.0-33.0); MEAN CORPUSCULAR HGB CONC 32.6 g/dl (32.0-36.5); MEAN CORPUSCULAR VOLUME 103.9 fl (80.0-96.0); PLATELET COUNT, AUTOMATED 251 10^3/uL (150-450); RED BLOOD COUNT 2.54 10^6/uL (4.00-5.40); WHITE BLOOD COUNT 11.1 10^3/uL (4.0-10.0)
[2022-03-04 12:29] LABS: CALCIUM LEVEL 9.4 MG/DL (8.8-10.2); CREATININE FOR GFR 2.29 MG/DL (0.55-1.30); GLOMERULAR FILTRATION RATE 22.5 (>45); POTASSIUM SERUM 3.5 MEQ/L (3.5-5.1)
== END ==
LOC: SKLAB4 08:30
PROVIDERS: ATTEND Internal Medicine
DX: N18.9 Chronic kidney disease, unspecified (principal); D64.9 Anemia, unspecified

== ENCOUNTER → 2022-03-10 | Outpatient (REF) | payer MEDICARE, MEDICAID ==
[2022-03-10 11:39] LABS: HEMATOCRIT 25.9 % (36.0-47.0); HEMOGLOBIN 8.5 g/dl (12.0-15.5); MEAN CORPUSCULAR HEMOGLOBIN 34.3 pg (27.0-33.0); MEAN CORPUSCULAR HGB CONC 32.8 g/dl (32.0-36.5); MEAN CORPUSCULAR VOLUME 104.4 fl (80.0-96.0); PLATELET COUNT, AUTOMATED 276 10^3/uL (150-450); RED BLOOD COUNT 2.48 10^6/uL (4.00-5.40); WHITE BLOOD COUNT 13.7 10^3/uL (4.0-10.0)
[2022-03-10 12:27] LABS: ALBUMIN 1.8 GM/DL (3.2-5.2); CREATININE FOR GFR 2.22 MG/DL (0.55-1.30); GLOMERULAR FILTRATION RATE 23.3 (>45); MAGNESIUM LEVEL 1.7 MG/DL (1.8-2.4); PHOSPHORUS LEVEL 3.7 MG/DL (2.5-4.9); PTH INTACT 34.9 PG/ML (18.5-88.0); URIC ACID 7.5 MG/DL (2.6-6.0)
[2022-03-10 12:29] LABS: CALCIUM LEVEL 9.1 MG/DL (8.8-10.2); CREATININE FOR GFR 2.27 MG/DL (0.55-1.30); GLOMERULAR FILTRATION RATE 22.7 (>45); POTASSIUM SERUM 4.1 MEQ/L (3.5-5.1)
== END ==
LOC: SKLAB4 09:53
PROVIDERS: ATTEND Internal Medicine
DX: N18.9 Chronic kidney disease, unspecified (principal)

== ENCOUNTER → 2022-03-11 | Outpatient (REF) | payer MEDICARE, MEDICAID ==
[2022-03-11 09:39] LABS: HEMATOCRIT 28.9 % (36.0-47.0); HEMOGLOBIN 9.1 g/dl (12.0-15.5); MEAN CORPUSCULAR HEMOGLOBIN 33.2 pg (27.0-33.0); MEAN CORPUSCULAR HGB CONC 31.5 g/dl (32.0-36.5); MEAN CORPUSCULAR VOLUME 105.5 fl (80.0-96.0); PLATELET COUNT, AUTOMATED 286 10^3/uL (150-450); RED BLOOD COUNT 2.74 10^6/uL (4.00-5.40); WHITE BLOOD COUNT 16.7 10^3/uL (4.0-10.0)
[2022-03-11 09:58] LABS: CALCIUM LEVEL 9.5 MG/DL (8.8-10.2); CREATININE FOR GFR 2.05 MG/DL (0.55-1.30); GLOMERULAR FILTRATION RATE 25.6 (>45)
[2022-03-11 11:21] LABS: APPEARANCE, URINE TURBID (CLEAR); BACTERIA, URINE AUTO 3+ (NEGATIVE); BILIRUBIN, URINE AUTO NEGATIVE (NEGATIVE); BLOOD, URINE BLOOD 2+ (NEGATIVE); COLOR, URINE AMBER (YELLOW); GLUCOSE, URINE (UA) AUTO 1+ mg/dL (NEGATIVE); KETONE, URINE AUTO NEGATIVE (NEGATIVE); LEUKOCYTE ESTERASE, URINE AUTO 3+ (NEGATIVE); NITRITE, URINE AUTO NEGATIVE (NEGATIVE); PROTEIN, URINE AUTO 2+ mg/dL (NEGATIVE); RBC, URINE AUTO 89 /HPF (0-3); SPECIFIC GRAVITY URINE AUTO 1.011 (1.002-1.035); SQUAMOUS EPITHELIAL CELL UR AU 1 /HPF (0-6); UROBILINOGEN, URINE AUTO 0.2 mg/dL (0.0-2.0); WBC, URINE AUTO TNTC /HPF (0-3)
== END ==
LOC: SKLAB4 08:34
PROVIDERS: ATTEND Internal Medicine
DX: N18.9 Chronic kidney disease, unspecified (principal); R09.89 Other specified symptoms and signs involving the circulatory and respiratory systems; I70.0 Atherosclerosis of aorta; Z79.899 Other long term (current) drug therapy

== ENCOUNTER → 2022-03-12 | Outpatient (REF) | payer MEDICARE, MEDICAID ==
[2022-03-12 11:54] LABS: HEMATOCRIT 28.4 % (36.0-47.0); HEMOGLOBIN 9.1 g/dl (12.0-15.5); MEAN CORPUSCULAR HEMOGLOBIN 33.8 pg (27.0-33.0); MEAN CORPUSCULAR VOLUME 105.6 fl (80.0-96.0); PLATELET COUNT, AUTOMATED 279 10^3/uL (150-450); RED BLOOD COUNT 2.69 10^6/uL (4.00-5.40); WHITE BLOOD COUNT 15.9 10^3/uL (4.0-10.0)
[2022-03-12 12:26] LABS: CREATININE FOR GFR 2.01 MG/DL (0.55-1.30); GLOMERULAR FILTRATION RATE 26.1 (>45); POTASSIUM SERUM 4.2 MEQ/L (3.5-5.1)
== END ==
LOC: SKLAB4 10:03
PROVIDERS: ATTEND Internal Medicine
DX: N18.9 Chronic kidney disease, unspecified (principal)

== ENCOUNTER → 2022-03-13 | Outpatient (REF) | payer MEDICARE, MEDICAID ==
[2022-03-13 14:15] LABS: HEMATOCRIT 32.1 % (36.0-47.0); HEMOGLOBIN 10.2 g/dl (12.0-15.5); MEAN CORPUSCULAR HEMOGLOBIN 33.7 pg (27.0-33.0); MEAN CORPUSCULAR HGB CONC 31.8 g/dl (32.0-36.5); MEAN CORPUSCULAR VOLUME 105.9 fl (80.0-96.0); PLATELET COUNT, AUTOMATED 329 10^3/uL (150-450); RED BLOOD COUNT 3.03 10^6/uL (4.00-5.40); WHITE BLOOD COUNT 16.1 10^3/uL (4.0-10.0)
== END ==
LOC: SKLAB4 10:13
PROVIDERS: ATTEND Internal Medicine
DX: D72.829 Elevated white blood cell count, unspecified (principal)

== ENCOUNTER → 2022-03-16 | Outpatient (REF) | payer MEDICARE, MEDICAID ==
[2022-03-16 11:30] LABS: HEMATOCRIT 27.2 % (36.0-47.0); HEMOGLOBIN 8.6 g/dl (12.0-15.5); MEAN CORPUSCULAR HEMOGLOBIN 33.7 pg (27.0-33.0); MEAN CORPUSCULAR HGB CONC 31.6 g/dl (32.0-36.5); MEAN CORPUSCULAR VOLUME 106.7 fl (80.0-96.0); PLATELET COUNT, AUTOMATED 209 10^3/uL (150-450); RED BLOOD COUNT 2.55 10^6/uL (4.00-5.40)
[2022-03-16 11:55] LABS: CALCIUM LEVEL 9.6 MG/DL (8.8-10.2); CREATININE FOR GFR 2.24 MG/DL (0.55-1.30); GLOMERULAR FILTRATION RATE 23.1 (>45); POTASSIUM SERUM 3.9 MEQ/L (3.5-5.1)
== END ==
LOC: SKLAB4 07:14
PROVIDERS: ATTEND Internal Medicine
DX: N18.9 Chronic kidney disease, unspecified (principal)

== ENCOUNTER → 2022-03-19 | Outpatient (REF) | payer MEDICARE, MEDICAID ==
[2022-03-19 14:31] LABS: APPEARANCE, URINE HAZY (CLEAR); BACTERIA, URINE AUTO 1+ (NEGATIVE); BILIRUBIN, URINE AUTO NEGATIVE (NEGATIVE); BLOOD, URINE BLOOD 3+ (NEGATIVE); COLOR, URINE RED (YELLOW); GLUCOSE, URINE (UA) AUTO 3+ mg/dL (NEGATIVE); KETONE, URINE AUTO NEGATIVE (NEGATIVE); LEUKOCYTE ESTERASE, URINE AUTO 1+ (NEGATIVE); NITRITE, URINE AUTO NEGATIVE (NEGATIVE); PROTEIN, URINE AUTO 2+ mg/dL (NEGATIVE); RBC, URINE AUTO TNTC /HPF (0-3); SPECIFIC GRAVITY URINE AUTO 1.011 (1.002-1.035); SQUAMOUS EPITHELIAL CELL UR AU 0 /HPF (0-6); UROBILINOGEN, URINE AUTO 0.2 mg/dL (0.0-2.0); WBC, URINE AUTO 52 /HPF (0-3)
== END ==
LOC: SKLAB4 12:29
PROVIDERS: ATTEND Internal Medicine
DX: R31.9 Hematuria, unspecified (principal)

== ENCOUNTER → 2022-03-24 | Outpatient (REF) | payer MEDICARE, MEDICAID ==
[2022-03-24 11:58] LABS: CREATININE FOR GFR 2.18 MG/DL (0.55-1.30); GLOMERULAR FILTRATION RATE 23.8 (>45); POTASSIUM SERUM 4.3 MEQ/L (3.5-5.1)
== END ==
LOC: SKLAB4 07:26
PROVIDERS: ATTEND Internal Medicine
DX: N18.9 Chronic kidney disease, unspecified (principal)

== ENCOUNTER → 2022-03-24 | Outpatient (CLI) | payer MEDICARE, MEDICAID ==
[2022-03-24 20:40] LABS: APPEARANCE, URINE HAZY (CLEAR); BACTERIA, URINE AUTO 1+ (NEGATIVE); BILIRUBIN, URINE AUTO NEGATIVE (NEGATIVE); BLOOD, URINE BLOOD 1+ (NEGATIVE); COLOR, URINE YELLOW (YELLOW); GLUCOSE, URINE (UA) AUTO 3+ mg/dL (NEGATIVE); KETONE, URINE AUTO NEGATIVE (NEGATIVE); LEUKOCYTE ESTERASE, URINE AUTO 3+ (NEGATIVE); MUCUS, URINE SMALL (NEGATIVE); NITRITE, URINE AUTO NEGATIVE (NEGATIVE); PROTEIN, URINE AUTO 1+ mg/dL (NEGATIVE); RBC, URINE AUTO 12 /HPF (0-3); SPECIFIC GRAVITY URINE AUTO 1.011 (1.002-1.035); SQUAMOUS EPITHELIAL CELL UR AU 1 /HPF (0-6); UROBILINOGEN, URINE AUTO 0.2 mg/dL (0.0-2.0); WBC, URINE AUTO 158 /HPF (0-3)
== END ==
LOC: SKLAB4 20:18
PROVIDERS: ATTEND Internal Medicine
DX: R30.0 Dysuria (principal)

== ENCOUNTER → 2022-03-25 | Outpatient (REF) | payer MEDICARE, MEDICAID | LOC: SKLAB4 07:21 → EEVIPCON 07:21 | PROVIDERS: ATTEND Internal Medicine | DX: R31.9 Hematuria, unspecified (principal) ==

== ENCOUNTER → 2022-03-30 | Outpatient (CLI) | payer MEDICAID, MEDICARE | LOC: M RAD 14:33 → EEVIPCON 15:00 | PROVIDERS: ATTEND Nurse Practitioner Adult Health | DX: R31.9 Hematuria, unspecified (principal) ==

== ENCOUNTER → 2022-04-01 | Outpatient (REF) | payer MEDICARE ==
[2022-04-01 05:43] LABS: APPEARANCE, URINE HAZY (CLEAR); BACTERIA, URINE AUTO 1+ (NEGATIVE); BILIRUBIN, URINE AUTO NEGATIVE (NEGATIVE); BLOOD, URINE BLOOD NEGATIVE (NEGATIVE); COLOR, URINE YELLOW (YELLOW); GLUCOSE, URINE (UA) AUTO 2+ mg/dL (NEGATIVE); KETONE, URINE AUTO NEGATIVE (NEGATIVE); LEUKOCYTE ESTERASE, URINE AUTO 3+ (NEGATIVE); NITRITE, URINE AUTO NEGATIVE (NEGATIVE); PROTEIN, URINE AUTO 1+ mg/dL (NEGATIVE); RBC, URINE AUTO 3 /HPF (0-3); SPECIFIC GRAVITY URINE AUTO 1.016 (1.002-1.035); SQUAMOUS EPITHELIAL CELL UR AU 1 /HPF (0-6); UROBILINOGEN, URINE AUTO 0.2 mg/dL (0.0-2.0); WBC, URINE AUTO 52 /HPF (0-3)
[2022-04-01 09:34] LABS: BASO % 0.5 % (0.0-1.0); EOS # 0.3 10^3/uL (0.0-0.5); EOS % 4.4 % (0.0-3.0); HEMATOCRIT 28.6 % (36.0-47.0); HEMOGLOBIN 8.9 g/dl (12.0-15.5); LYMPH # 2.1 10^3/uL (1.5-5.0); MEAN CORPUSCULAR HGB CONC 31.1 g/dl (32.0-36.5); MEAN CORPUSCULAR VOLUME 105.9 fl (80.0-96.0); MONO # 0.6 10^3/uL (0.0-0.8); MONO % 8.3 % (2.0-8.0); NEUTROPHILS # 4.4 10^3/uL (1.5-8.5); NEUTROPHILS % 58.3 % (36.0-66.0); PLATELET COUNT, AUTOMATED 180 10^3/uL (150-450); WHITE BLOOD COUNT 7.6 10^3/uL (4.0-10.0)
[2022-04-01 09:57] LABS: MAGNESIUM LEVEL 2.5 MG/DL (1.8-2.4)
[2022-04-01 10:00] LABS: ALBUMIN 2.1 GM/DL (3.2-5.2); CALCIUM LEVEL 10.7 MG/DL (8.8-10.2); CREATININE FOR GFR 1.71 MG/DL (0.55-1.30); GLOMERULAR FILTRATION RATE 31.4 (>39); POTASSIUM SERUM 4.2 MEQ/L (3.5-5.1); URIC ACID 6.1 MG/DL (2.6-6.0)
[2022-04-01 11:04] LABS: PTH INTACT 22.2 PG/ML (18.5-88.0)
== END ==
LOC: SKLAB4 09:46
PROVIDERS: ATTEND Internal Medicine
DX: N18.9 Chronic kidney disease, unspecified (principal)

== ENCOUNTER → 2022-04-06 | Outpatient (REF) | payer MEDICARE | LOC: SKLAB4 11:24 | PROVIDERS: ATTEND Internal Medicine | DX: D64.9 Anemia, unspecified (principal); Z53.9 Procedure and treatment not carried out, unspecified reason ==

== ENCOUNTER → 2022-05-14 | Outpatient (REF) | payer MEDICARE, MEDICAID | LOC: SKLAB4 14:11 | PROVIDERS: ATTEND Internal Medicine | DX: E83.42 Hypomagnesemia (principal) ==

== ENCOUNTER → 2022-05-19 | Outpatient (REF) | payer MEDICARE, MEDICAID ==
[2022-05-19 05:42] LABS: AMORPHOUS SEDIMENT SMALL (NEGATIVE); APPEARANCE, URINE CLOUDY (CLEAR); BACTERIA, URINE AUTO 1+ (NEGATIVE); BILIRUBIN, URINE AUTO NEGATIVE (NEGATIVE); BLOOD, URINE BLOOD 1+ (NEGATIVE); COLOR, URINE YELLOW (YELLOW); GLUCOSE, URINE (UA) AUTO NEGATIVE (NEGATIVE); KETONE, URINE AUTO NEGATIVE (NEGATIVE); LEUKOCYTE ESTERASE, URINE AUTO 3+ (NEGATIVE); MUCUS, URINE SMALL (NEGATIVE); NITRITE, URINE AUTO NEGATIVE (NEGATIVE); PROTEIN, URINE AUTO 1+ mg/dL (NEGATIVE); RBC, URINE AUTO 18 /HPF (0-3); SPECIFIC GRAVITY URINE AUTO 1.013 (1.002-1.035); SQUAMOUS EPITHELIAL CELL UR AU 3 /HPF (0-6); TRANSITIONAL EPITHELIAL AUTO 6 /HPF; UROBILINOGEN, URINE AUTO 0.2 mg/dL (0.0-2.0); WBC, URINE AUTO TNTC /HPF (0-3)
[2022-05-19 07:26] LABS: BASO % 0.3 % (0.0-1.0); EOS # 0.6 10^3/uL (0.0-0.5); EOS % 6.5 % (0.0-3.0); HEMATOCRIT 31.2 % (36.0-47.0); HEMOGLOBIN 9.6 g/dl (12.0-15.5); LYMPH # 2.5 10^3/uL (1.5-5.0); LYMPH % 29.6 % (24.0-44.0); MEAN CORPUSCULAR HEMOGLOBIN 32.1 pg (27.0-33.0); MEAN CORPUSCULAR HGB CONC 30.8 g/dl (32.0-36.5); MEAN CORPUSCULAR VOLUME 104.3 fl (80.0-96.0); MONO # 0.6 10^3/uL (0.0-0.8); MONO % 7.3 % (2.0-8.0); NEUTROPHILS # 4.8 10^3/uL (1.5-8.5); PLATELET COUNT, AUTOMATED 193 10^3/uL (150-450); RED BLOOD COUNT 2.99 10^6/uL (4.00-5.40); WHITE BLOOD COUNT 8.6 10^3/uL (4.0-10.0)
[2022-05-19 07:54] LABS: ALBUMIN 1.8 GM/DL (3.2-5.2); CALCIUM LEVEL 9.7 MG/DL (8.8-10.2); CREATININE FOR GFR 1.18 MG/DL (0.55-1.30); GLOMERULAR FILTRATION RATE 48.2 (>39); MAGNESIUM LEVEL 1.5 MG/DL (1.8-2.4); PHOSPHORUS LEVEL 3.6 MG/DL (2.5-4.9); POTASSIUM SERUM 3.8 MEQ/L (3.5-5.1); URIC ACID 5.7 MG/DL (2.6-6.0)
[2022-05-19 09:42] LABS: PTH INTACT 12.9 PG/ML (18.5-88.0)
== END ==
LOC: SKLAB4 07:00
PROVIDERS: ATTEND Internal Medicine
DX: N18.9 Chronic kidney disease, unspecified (principal); D50.9 Iron deficiency anemia, unspecified

== ENCOUNTER → 2022-05-19 | Outpatient (REF) | payer MEDICARE, MEDICAID ==
[2022-05-21 15:24] LABS: TOTAL PROTEIN 5.3 GM/DL (6.4-8.2)
== END ==
LOC: M LAB REF 15:04
PROVIDERS: ATTEND Nurse Practitioner Family
DX: D50.9 Iron deficiency anemia, unspecified (principal); E83.52 Hypercalcemia

== ENCOUNTER → 2022-05-22 | Outpatient (REF) | payer MEDICARE, MEDICAID ==
[2022-05-22 09:36] LABS: TOTAL PROTEIN 5.5 GM/DL (6.4-8.2)
== END ==
LOC: SKLAB4 09:23
PROVIDERS: ATTEND Nurse Practitioner
DX: E83.52 Hypercalcemia (principal)

== ENCOUNTER → 2022-05-30 | Outpatient (REF) | LOC: SKLAB4 14:32 | PROVIDERS: ATTEND Internal Medicine | DX: D64.9 Anemia, unspecified (principal) ==

== ENCOUNTER → 2022-06-01 | Outpatient (REF) | LOC: SKLAB4 10:14 | PROVIDERS: ATTEND Internal Medicine | DX: D64.9 Anemia, unspecified (principal) ==

== ENCOUNTER → 2022-06-02 | Outpatient (REF) | payer MEDICARE, MEDICAID | LOC: SKLAB4 14:07 | PROVIDERS: ATTEND Nurse Practitioner Adult Health | DX: Z53.8 Procedure and treatment not carried out for other reasons (principal) ==

== ENCOUNTER 2022-06-09 11:16 | Outpatient (CLI) | payer MEDICARE ==
[~2022-06-09 11:16] MED LIST changes: +ALBUTEROL SULFATE 2.5 MG/0.5 ML INH NEB SOLN INH PRN; +EPINEPHrine INJ 1 MG/ML 1ML AMP IM PRN; +diphenhydrAMINE 50MG/ML VIAL (J1200) IV PRN; +methylPREDNISolone 125MG 2ML VIAL IV PRN
[2022-06-09] MEDS ORDERED: FERRIC CARBOXYMALTOSE INJ 750 MG in NS 250 ML (>50kg) IV ONE ×3 (11:30)
[2022-06-09] MEDS ORDERED: NS 1,000 ML IV SCH (11:30)
== END 2022-06-09 13:30 | disposition home or self-care (01) ==
LOC: M INFU 11:16
PROVIDERS: ATTEND Nurse Practitioner Adult Health
DX: N18.9 Chronic kidney disease, unspecified (principal); D63.1 Anemia in chronic kidney disease
CPT/HCPCS: 36415; 80048; 96365; J1439

== ENCOUNTER → 2022-06-09 | Outpatient (REF) | payer MEDICARE, MEDICAID ==
[2022-06-09 08:26] LABS: CALCIUM LEVEL 9.6 MG/DL (8.8-10.2); CREATININE FOR GFR 1.15 MG/DL (0.55-1.30); GLOMERULAR FILTRATION RATE 49.7 (>39); POTASSIUM SERUM 3.9 MEQ/L (3.5-5.1)
== END ==
LOC: SKLAB4 09:04
PROVIDERS: ATTEND Nurse Practitioner Adult Health
DX: N18.9 Chronic kidney disease, unspecified (principal)

== ENCOUNTER → 2022-06-10 | Outpatient (CLI) | payer MEDICARE ==
[~2022-06-10] MED LIST changes: -ALBUTEROL SULFATE 2.5 MG/0.5 ML INH NEB SOLN INH PRN; -EPINEPHrine INJ 1 MG/ML 1ML AMP IM PRN; +GASTROGRAFIN SOLUTION 30ML (Q9963) As Ordered ONE; +ISOVUE-370 76% 100ML VIAL As Ordered ONE; -diphenhydrAMINE 50MG/ML VIAL (J1200) IV PRN; -methylPREDNISolone 125MG 2ML VIAL IV PRN
== END ==
LOC: M RAD 11:28
PROVIDERS: ATTEND Nurse Practitioner Adult Health
DX: R63.4 Abnormal weight loss (principal); Z85.42 Personal history of malignant neoplasm of other parts of uterus
CPT/HCPCS: 74177; Q9963; Q9967

== ENCOUNTER 2022-06-16 10:15 | Outpatient (CLI) | payer MEDICARE, MEDICAID ==
[~2022-06-16 10:15] MED LIST changes: +ALBUTEROL SULFATE 2.5 MG/0.5 ML INH NEB SOLN INH PRN; +EPINEPHrine INJ 1 MG/ML 1ML AMP IM PRN; -GASTROGRAFIN SOLUTION 30ML (Q9963) As Ordered ONE; -ISOVUE-370 76% 100ML VIAL As Ordered ONE; +diphenhydrAMINE 50MG/ML VIAL (J1200) IV PRN; +methylPREDNISolone 125MG 2ML VIAL IV PRN
[2022-06-16 10:25] VITALS: BP 118/65
[2022-06-16] MEDS ORDERED: NS 1,000 ML IV SCH (10:30)
[2022-06-16] MEDS ORDERED: FERRIC CARBOXYMALTOSE INJ 750 MG in NS 250 ML (>50kg) IV ONE ×3 (10:30)
[2022-06-16 11:40] VITALS: BP 114/68
== END 2022-06-16 11:45 | disposition home or self-care (01) ==
LOC: M INFU 10:15
PROVIDERS: ATTEND Nurse Practitioner Adult Health
DX: N18.9 Chronic kidney disease, unspecified (principal); D63.1 Anemia in chronic kidney disease
CPT/HCPCS: 96365; J1439

== ENCOUNTER → 2022-07-03 | Outpatient (REF) | payer MEDICARE, MEDICAID ==
[2022-07-02 11:05] LABS: CREATININE FOR GFR 1.13 MG/DL (0.55-1.30); GLOMERULAR FILTRATION RATE 50.7 (>39); POTASSIUM SERUM 3.9 MEQ/L (3.5-5.1)
[~2022-07-03] MED LIST changes: -ALBUTEROL SULFATE 2.5 MG/0.5 ML INH NEB SOLN INH PRN; -EPINEPHrine INJ 1 MG/ML 1ML AMP IM PRN; +LEVO1TAB38 PO; -LEVO250T3 PO; -diphenhydrAMINE 50MG/ML VIAL (J1200) IV PRN; -methylPREDNISolone 125MG 2ML VIAL IV PRN
== END ==
LOC: SKLAB4 08:08
PROVIDERS: ATTEND Nurse Practitioner Adult Health
DX: N18.9 Chronic kidney disease, unspecified (principal)

== ENCOUNTER → 2022-07-13 | Outpatient (REF) | payer MEDICARE, MEDICAID ==
[2022-07-13 15:57] LABS: MEAN CORPUSCULAR HEMOGLOBIN 32.6 pg (27.0-33.0); MEAN CORPUSCULAR HGB CONC 31.4 g/dl (32.0-36.5); MEAN CORPUSCULAR VOLUME 103.9 fl (80.0-96.0); PLATELET COUNT, AUTOMATED 124 10^3/uL (150-450); RED BLOOD COUNT 3.37 10^6/uL (4.00-5.40); WHITE BLOOD COUNT 6.7 10^3/uL (4.0-10.0)
[2022-07-13 16:37] LABS: ALBUMIN 1.9 GM/DL (3.2-5.2); BILIRUBIN,TOTAL 0.5 MG/DL (0.2-1.0); CALCIUM LEVEL 8.9 MG/DL (8.8-10.2); CREATININE FOR GFR 1.26 MG/DL (0.55-1.30); GLOMERULAR FILTRATION RATE 44.7 (>39); POTASSIUM SERUM 3.9 MEQ/L (3.5-5.1); TOTAL PROTEIN 5.9 GM/DL (6.4-8.2)
== END ==
LOC: SKLAB2 13:24
PROVIDERS: ATTEND Nurse Practitioner Adult Health
DX: U07.1 COVID-19 (principal); Z79.899 Other long term (current) drug therapy

== ENCOUNTER → 2022-07-16 | Outpatient (REF) | payer MEDICARE, MEDICAID ==
[2022-07-16 09:55] LABS: HEMATOCRIT 30.4 % (36.0-47.0); HEMOGLOBIN 9.4 g/dl (12.0-15.5); MEAN CORPUSCULAR HEMOGLOBIN 32.5 pg (27.0-33.0); MEAN CORPUSCULAR HGB CONC 30.9 g/dl (32.0-36.5); MEAN CORPUSCULAR VOLUME 105.2 fl (80.0-96.0); PLATELET COUNT, AUTOMATED 159 10^3/uL (150-450); RED BLOOD COUNT 2.89 10^6/uL (4.00-5.40); WHITE BLOOD COUNT 7.4 10^3/uL (4.0-10.0)
[2022-07-16 10:28] LABS: ALBUMIN 1.7 GM/DL (3.2-5.2); BILIRUBIN,TOTAL 0.5 MG/DL (0.2-1.0); CALCIUM LEVEL 8.6 MG/DL (8.8-10.2); CREATININE FOR GFR 1.37 MG/DL (0.55-1.30); GLOMERULAR FILTRATION RATE 40.6 (>39); POTASSIUM SERUM 3.9 MEQ/L (3.5-5.1); TOTAL PROTEIN 5.3 GM/DL (6.4-8.2)
== END ==
LOC: SKLAB2 08:00
PROVIDERS: ATTEND Nurse Practitioner Adult Health
DX: U07.1 COVID-19 (principal); Z79.899 Other long term (current) drug therapy

== ENCOUNTER → 2022-07-20 | Outpatient (REF) | payer MEDICARE, MEDICAID ==
[2022-07-20 08:30] LABS: HEMATOCRIT 31.8 % (36.0-47.0); HEMOGLOBIN 9.9 g/dl (12.0-15.5); MEAN CORPUSCULAR HEMOGLOBIN 32.9 pg (27.0-33.0); MEAN CORPUSCULAR HGB CONC 31.1 g/dl (32.0-36.5); MEAN CORPUSCULAR VOLUME 105.6 fl (80.0-96.0); PLATELET COUNT, AUTOMATED 198 10^3/uL (150-450); RED BLOOD COUNT 3.01 10^6/uL (4.00-5.40); WHITE BLOOD COUNT 8.1 10^3/uL (4.0-10.0)
[2022-07-20 09:18] LABS: ALBUMIN 1.7 GM/DL (3.2-5.2); BILIRUBIN,TOTAL 0.5 MG/DL (0.2-1.0); CALCIUM LEVEL 9.1 MG/DL (8.8-10.2); CREATININE FOR GFR 1.03 MG/DL (0.55-1.30); GLOMERULAR FILTRATION RATE 56.4 (>39); TOTAL PROTEIN 5.3 GM/DL (6.4-8.2)
== END ==
LOC: SKLAB2 08:00
PROVIDERS: ATTEND Nurse Practitioner Adult Health
DX: U07.1 COVID-19 (principal); Z79.899 Other long term (current) drug therapy

== ENCOUNTER → 2022-07-23 | Outpatient (REF) | payer MEDICARE, MEDICAID ==
[2022-07-23 09:10] LABS: HEMATOCRIT 30.1 % (36.0-47.0); HEMOGLOBIN 9.2 g/dl (12.0-15.5); MEAN CORPUSCULAR HEMOGLOBIN 32.3 pg (27.0-33.0); MEAN CORPUSCULAR HGB CONC 30.6 g/dl (32.0-36.5); MEAN CORPUSCULAR VOLUME 105.6 fl (80.0-96.0); PLATELET COUNT, AUTOMATED 244 10^3/uL (150-450); RED BLOOD COUNT 2.85 10^6/uL (4.00-5.40); WHITE BLOOD COUNT 9.2 10^3/uL (4.0-10.0)
[2022-07-23 09:41] LABS: ALBUMIN 1.7 GM/DL (3.2-5.2); BILIRUBIN,TOTAL 0.4 MG/DL (0.2-1.0); CALCIUM LEVEL 9.1 MG/DL (8.8-10.2); CREATININE FOR GFR 0.98 MG/DL (0.55-1.30); GLOMERULAR FILTRATION RATE 59.7 (>39); TOTAL PROTEIN 5.3 GM/DL (6.4-8.2)
== END ==
LOC: SKLAB2 08:00
PROVIDERS: ATTEND Nurse Practitioner Adult Health
DX: U07.1 COVID-19 (principal); Z79.899 Other long term (current) drug therapy

== ENCOUNTER → 2022-08-14 | Outpatient (REF) | payer MEDICARE, MEDICAID ==
[2022-08-14 08:07] LABS: BASO % 0.3 % (0.0-1.0); EOS # 1.9 10^3/uL (0.0-0.5); EOS % 16.5 % (0.0-3.0); HEMATOCRIT 29.9 % (36.0-47.0); HEMOGLOBIN 9.7 g/dl (12.0-15.5); LYMPH # 2.1 10^3/uL (1.5-5.0); LYMPH % 18.8 % (24.0-44.0); MEAN CORPUSCULAR HEMOGLOBIN 34.2 pg (27.0-33.0); MEAN CORPUSCULAR HGB CONC 32.4 g/dl (32.0-36.5); MEAN CORPUSCULAR VOLUME 105.3 fl (80.0-96.0); MONO % 8.5 % (2.0-8.0); NEUTROPHILS # 6.2 10^3/uL (1.5-8.5); NEUTROPHILS % 55.4 % (36.0-66.0); PLATELET COUNT, AUTOMATED 216 10^3/uL (150-450); RED BLOOD COUNT 2.84 10^6/uL (4.00-5.40); WHITE BLOOD COUNT 11.3 10^3/uL (4.0-10.0)
[2022-08-14 08:37] LABS: ALBUMIN 1.9 GM/DL (3.2-5.2); CALCIUM LEVEL 9.2 MG/DL (8.8-10.2); CREATININE FOR GFR 1.1 MG/DL (0.55-1.30); GLOMERULAR FILTRATION RATE 52.3 (>39); MAGNESIUM LEVEL 1.4 MG/DL (1.8-2.4); PHOSPHORUS LEVEL 3.1 MG/DL (2.5-4.9)
[2022-08-14 09:05] LABS: PTH INTACT 25.4 PG/ML (18.5-88.0)
[2022-08-14 09:08] LABS: APPEARANCE, URINE MANUAL HAZY (CLEAR)
[2022-08-14 09:09] LABS: BILIRUBIN, URINE MANUAL NEGATIVE (NEGATIVE); BLOOD URINE MANUAL POSITIVE (NEGATIVE); COLOR, URINE MANUAL YELLOW (YELLOW); GLUCOSE, URINE (UA) MANUAL NEGATIVE (NEGATIVE); KETONE, URINE MANUAL NEGATIVE (NEGATIVE); LEUKOCYTE ESTERASE, URINE MAN POSITIVE (NEGATIVE); NITRITE, URINE MANUAL NEGATIVE (NEGATIVE); PROTEIN, URINE MANUAL 1+ mg/dL (NEGATIVE); SPECIFIC GRAVITY,URINE MANUAL 1.015 (1.002-1.035); UROBILINOGEN, URINE MANUAL NORMAL (NORMAL)
[2022-08-14 09:24] LABS: RBC, URINE 15-20 /hpf (0-3); WBC, URINE TNTC /hpf (0-3)
[2022-08-14 09:25] LABS: BACTERIA, URINE MOD AMOUNT; HYALINE CAST, URINE NONE SEEN /lpf (0-1); SQUAMOUS EPITHELIAL CELL URINE MOD AMOUNT /hpf (SMALL AMT)
[2022-08-14 09:26] LABS: AMORPHOUS SEDIMENT, URINE MOD AMOUNT (NEGATIVE); MUCUS, URINE SMALL AMOUNT (NEGATIVE)
== END ==
LOC: SKLAB4 09:03
PROVIDERS: ATTEND Nurse Practitioner
DX: E87.5 Hyperkalemia (principal); Z79.899 Other long term (current) drug therapy

== ENCOUNTER → 2022-08-14 | Outpatient (REF) | payer MEDICARE, MEDICAID | LOC: SKLAB5 12:31 | PROVIDERS: ATTEND Nurse Practitioner Adult Health | DX: D72.829 Elevated white blood cell count, unspecified (principal); Z53.8 Procedure and treatment not carried out for other reasons ==

== ENCOUNTER → 2022-08-17 | Outpatient (REF) | payer MEDICARE, MEDICAID ==
[2022-08-17 08:23] LABS: HEMATOCRIT 33.1 % (36.0-47.0); HEMOGLOBIN 10.3 g/dl (12.0-15.5); MEAN CORPUSCULAR HEMOGLOBIN 33.6 pg (27.0-33.0); MEAN CORPUSCULAR HGB CONC 31.1 g/dl (32.0-36.5); MEAN CORPUSCULAR VOLUME 107.8 fl (80.0-96.0); PLATELET COUNT, AUTOMATED 218 10^3/uL (150-450); RED BLOOD COUNT 3.07 10^6/uL (4.00-5.40); WHITE BLOOD COUNT 9.5 10^3/uL (4.0-10.0)
== END ==
LOC: SKLAB4 08:50
PROVIDERS: ATTEND Nurse Practitioner Adult Health
DX: D64.9 Anemia, unspecified (principal)

== ENCOUNTER → 2022-09-11 | Outpatient (REF) | payer MEDICARE, MEDICAID ==
[2022-09-11 15:39] LABS: APPEARANCE, URINE MANUAL CLOUDY (CLEAR); COLOR, URINE MANUAL YELLOW (YELLOW)
[2022-09-11 15:40] LABS: BILIRUBIN, URINE MANUAL NEGATIVE (NEGATIVE); BLOOD URINE MANUAL POSITIVE (NEGATIVE); GLUCOSE, URINE (UA) MANUAL NEGATIVE (NEGATIVE); KETONE, URINE MANUAL NEGATIVE (NEGATIVE); LEUKOCYTE ESTERASE, URINE MAN POSITIVE (NEGATIVE); NITRITE, URINE MANUAL NEGATIVE (NEGATIVE); PROTEIN, URINE MANUAL NEGATIVE (NEGATIVE); SPECIFIC GRAVITY,URINE MANUAL 1.005 (1.002-1.035); UROBILINOGEN, URINE MANUAL NORMAL (NORMAL)
[2022-09-11 15:54] LABS: BACTERIA, URINE SMALL AMOUNT; HYALINE CAST, URINE 0-1 /lpf (0-1); MUCUS, URINE SMALL AMOUNT (NEGATIVE); RBC, URINE TNTC /hpf (0-3); SQUAMOUS EPITHELIAL CELL URINE SMALL AMOUNT /hpf (SMALL AMT); TRANSITIONAL EPI CELLS, URINE SMALL AMOUNT /hpf; WBC, URINE 15-20 /hpf (0-3)
== END ==
LOC: SKLAB4 14:48
PROVIDERS: ATTEND Nurse Practitioner Adult Health
DX: N18.9 Chronic kidney disease, unspecified (principal)

== ENCOUNTER → 2022-09-11 | Outpatient (REF) | payer MEDICARE, MEDICAID ==
[2022-09-11 06:46] LABS: HEMOGLOBIN 10.8 g/dl (12.0-15.5); MEAN CORPUSCULAR HEMOGLOBIN 34.5 pg (27.0-33.0); MEAN CORPUSCULAR HGB CONC 31.8 g/dl (32.0-36.5); MEAN CORPUSCULAR VOLUME 108.6 fl (80.0-96.0); PLATELET COUNT, AUTOMATED 177 10^3/uL (150-450); RED BLOOD COUNT 3.13 10^6/uL (4.00-5.40); WHITE BLOOD COUNT 7.3 10^3/uL (4.0-10.0)
== END ==
LOC: SKLAB4 11:20
PROVIDERS: ATTEND Nurse Practitioner Adult Health
DX: N18.9 Chronic kidney disease, unspecified (principal)

== ENCOUNTER → 2022-09-14 | Outpatient (REF) | payer MEDICARE, MEDICAID ==
[2022-09-14 13:59] LABS: HEMATOCRIT 35.3 % (36.0-47.0); HEMOGLOBIN 11.2 g/dl (12.0-15.5); MEAN CORPUSCULAR HGB CONC 31.7 g/dl (32.0-36.5); MEAN CORPUSCULAR VOLUME 107.3 fl (80.0-96.0); PLATELET COUNT, AUTOMATED 198 10^3/uL (150-450); RED BLOOD COUNT 3.29 10^6/uL (4.00-5.40); WHITE BLOOD COUNT 18.9 10^3/uL (4.0-10.0)
[2022-09-14 14:23] LABS: CALCIUM LEVEL 9.1 MG/DL (8.8-10.2); CREATININE FOR GFR 1.28 MG/DL (0.55-1.30); GLOMERULAR FILTRATION RATE 43.9 (>39); POTASSIUM SERUM 3.6 MEQ/L (3.5-5.1)
[2022-09-14 14:42] LABS: APPEARANCE, URINE MANUAL TURBID (CLEAR)
[2022-09-14 14:43] LABS: BILIRUBIN, URINE MANUAL NEGATIVE (NEGATIVE); COLOR, URINE MANUAL YELLOW (YELLOW); GLUCOSE, URINE (UA) MANUAL NEGATIVE (NEGATIVE); KETONE, URINE MANUAL 1+ mg/dL (NEGATIVE); PROTEIN, URINE MANUAL 3+ mg/dL (NEGATIVE); UROBILINOGEN, URINE MANUAL NORMAL (NORMAL)
[2022-09-14 14:44] LABS: BLOOD URINE MANUAL POSITIVE (NEGATIVE); LEUKOCYTE ESTERASE, URINE MAN POSITIVE (NEGATIVE); NITRITE, URINE MANUAL POSITIVE (NEGATIVE)
[2022-09-14 14:45] LABS: BACTERIA, URINE LARGE AMOUNT; SQUAMOUS EPITHELIAL CELL URINE SMALL AMOUNT /hpf (SMALL AMT); WBC, URINE TNTC /hpf (0-3)
[2022-09-14 14:46] LABS: HYALINE CAST, URINE NONE SEEN /lpf (0-1)
== END ==
LOC: SKLAB4 13:04
PROVIDERS: ATTEND Nurse Practitioner Adult Health
DX: R41.82 Altered mental status, unspecified (principal)

== ENCOUNTER → 2022-09-15 | Outpatient (REF) | payer MEDICARE, MEDICAID ==
[2022-09-15 10:57] LABS: HEMATOCRIT 31.4 % (36.0-47.0); HEMOGLOBIN 9.9 g/dl (12.0-15.5); MEAN CORPUSCULAR HEMOGLOBIN 34.6 pg (27.0-33.0); MEAN CORPUSCULAR HGB CONC 31.5 g/dl (32.0-36.5); MEAN CORPUSCULAR VOLUME 109.8 fl (80.0-96.0); PLATELET COUNT, AUTOMATED 166 10^3/uL (150-450); RED BLOOD COUNT 2.86 10^6/uL (4.00-5.40)
[2022-09-15 11:30] LABS: CALCIUM LEVEL 8.5 MG/DL (8.8-10.2); CREATININE FOR GFR 1.46 MG/DL (0.55-1.30); GLOMERULAR FILTRATION RATE 37.7 (>39); POTASSIUM SERUM 3.4 MEQ/L (3.5-5.1)
== END ==
LOC: SKLAB4 09:59
PROVIDERS: ATTEND Nurse Practitioner Adult Health
DX: N39.0 Urinary tract infection, site not specified (principal); A41.9 Sepsis, unspecified organism

== ENCOUNTER → 2022-09-16 | Outpatient (REF) | payer MEDICARE, MEDICAID ==
[2022-09-16 09:00] LABS: HEMATOCRIT 32.8 % (36.0-47.0); HEMOGLOBIN 10.4 g/dl (12.0-15.5); MEAN CORPUSCULAR HGB CONC 31.7 g/dl (32.0-36.5); MEAN CORPUSCULAR VOLUME 110.4 fl (80.0-96.0); PLATELET COUNT, AUTOMATED 178 10^3/uL (150-450); RED BLOOD COUNT 2.97 10^6/uL (4.00-5.40); WHITE BLOOD COUNT 12.6 10^3/uL (4.0-10.0)
[2022-09-16 09:39] LABS: CALCIUM LEVEL 9.2 MG/DL (8.8-10.2); CREATININE FOR GFR 1.4 MG/DL (0.55-1.30); GLOMERULAR FILTRATION RATE 39.6 (>39)
== END ==
LOC: SKLAB4 08:52
PROVIDERS: ATTEND Nurse Practitioner Adult Health
DX: N17.9 Acute kidney failure, unspecified (principal); N18.9 Chronic kidney disease, unspecified

== ENCOUNTER → 2022-09-17 | Outpatient (REF) | payer MEDICARE, MEDICAID ==
[2022-09-17 13:03] LABS: HEMATOCRIT 32.2 % (36.0-47.0); MEAN CORPUSCULAR HEMOGLOBIN 34.5 pg (27.0-33.0); MEAN CORPUSCULAR HGB CONC 31.1 g/dl (32.0-36.5); PLATELET COUNT, AUTOMATED 185 10^3/uL (150-450); WHITE BLOOD COUNT 11.4 10^3/uL (4.0-10.0)
[2022-09-17 13:48] LABS: ALBUMIN 1.6 GM/DL (3.2-5.2); BILIRUBIN,TOTAL 0.4 MG/DL (0.2-1.0); CREATININE FOR GFR 1.32 MG/DL (0.55-1.30); GLOMERULAR FILTRATION RATE 42.4 (>39); TOTAL PROTEIN 5.2 GM/DL (6.4-8.2)
== END ==
LOC: SKLAB4 12:34
PROVIDERS: ATTEND Nurse Practitioner Adult Health
DX: N18.9 Chronic kidney disease, unspecified (principal); D63.1 Anemia in chronic kidney disease

== ENCOUNTER → 2022-09-21 | Outpatient (REF) | payer MEDICARE, MEDICAID ==
[~2022-09-21] MED LIST changes: +ACET1TAB55 PO; +ACET650T15 PO; +BISA10SU27 PR; +ELIQ2.5T PO; +FLEEENE12 PR; +FURO20TA2 PO; +GABA-1171 PO; +MERO1VIA3 IV; +METO1TAB32 PO; +MILKSUS3 PO; +MIRT-62 PO; +OMEP1CAP73 PO; +SENN-111 PO; +TRAM50TA2 PO
[2022-09-21 08:30] LABS: HEMATOCRIT 32.1 % (36.0-47.0); HEMOGLOBIN 9.9 g/dl (12.0-15.5); MEAN CORPUSCULAR HEMOGLOBIN 34.6 pg (27.0-33.0); MEAN CORPUSCULAR HGB CONC 30.8 g/dl (32.0-36.5); MEAN CORPUSCULAR VOLUME 112.2 fl (80.0-96.0); PLATELET COUNT, AUTOMATED 241 10^3/uL (150-450); RED BLOOD COUNT 2.86 10^6/uL (4.00-5.40); WHITE BLOOD COUNT 11.4 10^3/uL (4.0-10.0)
[2022-09-21 09:33] LABS: CALCIUM LEVEL 9.6 MG/DL (8.8-10.2); CREATININE FOR GFR 1.05 MG/DL (0.55-1.30); GLOMERULAR FILTRATION RATE 55.2 (>39); POTASSIUM SERUM 3.7 MEQ/L (3.5-5.1)
== END ==
LOC: SKLAB4 08:47
PROVIDERS: ATTEND Nurse Practitioner Adult Health
DX: N18.9 Chronic kidney disease, unspecified (principal)

== ENCOUNTER → 2022-09-23 | Outpatient (REF) | payer MEDICARE, MEDICAID ==
[2022-09-23 15:40] LABS: APPEARANCE, URINE MANUAL CLOUDY (CLEAR); BILIRUBIN, URINE MANUAL NEGATIVE (NEGATIVE); COLOR, URINE MANUAL LT YELLOW (YELLOW); GLUCOSE, URINE (UA) MANUAL NEGATIVE (NEGATIVE); KETONE, URINE MANUAL NEGATIVE (NEGATIVE); LEUKOCYTE ESTERASE, URINE MAN POSITIVE (NEGATIVE); NITRITE, URINE MANUAL NEGATIVE (NEGATIVE); PROTEIN, URINE MANUAL 1+ mg/dL (NEGATIVE); SPECIFIC GRAVITY,URINE MANUAL 1.015 (1.002-1.035); UROBILINOGEN, URINE MANUAL NORMAL (NORMAL)
[2022-09-23 15:41] LABS: BLOOD URINE MANUAL POSITIVE (NEGATIVE)
[2022-09-23 16:06] LABS: BACTERIA, URINE LARGE AMOUNT; HYALINE CAST, URINE NONE SEEN /lpf (0-1); SQUAMOUS EPITHELIAL CELL URINE SMALL AMOUNT /hpf (SMALL AMT); WBC, URINE TNTC /hpf (0-3)
== END ==
LOC: SKLAB4 14:30
PROVIDERS: ATTEND Nurse Practitioner Adult Health
DX: N18.9 Chronic kidney disease, unspecified (principal); Z79.899 Other long term (current) drug therapy

== ENCOUNTER → 2022-10-05 | Outpatient (REF) | payer MEDICARE, MEDICAID ==
[~2022-10-05] MED LIST changes: -ACET1TAB55 PO; -ACET650T15 PO; -BISA10SU27 PR; -ELIQ2.5T PO; -FLEEENE12 PR; -FURO20TA2 PO; -GABA-1171 PO; -MERO1VIA3 IV; -METO1TAB32 PO; -MILKSUS3 PO; -MIRT-62 PO; -OMEP1CAP73 PO; -SENN-111 PO; -TRAM50TA2 PO
[2022-10-05 07:03] LABS: CALCIUM LEVEL 8.8 MG/DL (8.8-10.2); CREATININE FOR GFR 1.81 MG/DL (0.55-1.30); GLOMERULAR FILTRATION RATE 29.4 (>39); POTASSIUM SERUM 3.1 MEQ/L (3.5-5.1)
== END ==
LOC: SKLAB4 08:52
PROVIDERS: ATTEND Nurse Practitioner Adult Health
DX: N18.9 Chronic kidney disease, unspecified (principal)

== ENCOUNTER → 2022-10-08 | Outpatient (REF) | payer MEDICARE, MEDICAID ==
[~2022-10-08] MED LIST changes: +ACET1TAB55 PO; +ACET650T15 PO; +BISA10SU27 PR; +ELIQ2.5T PO; +FLEEENE12 PR; +FURO20TA2 PO; +GABA-1171 PO; +MERO1VIA3 IV; +METO1TAB32 PO; +MILKSUS3 PO; +MIRT-62 PO; +OMEP1CAP73 PO; +SENN-111 PO; +TRAM50TA2 PO
== END ==
LOC: SKLAB4 11:44
PROVIDERS: ATTEND Nurse Practitioner Adult Health
DX: R10.9 Unspecified abdominal pain (principal); K59.00 Constipation, unspecified

== ENCOUNTER 2022-10-09 12:37 | Inpatient (IN) | payer MEDICARE, MEDICAID ==
[~2022-10-09] VITALS: Ht 162.6 cm; Wt 68.8 kg
[~2022-10-09 12:37] MED LIST changes: -ACET1TAB55 PO; -ACET650T15 PO; -BISA10SU27 PR; -ELIQ2.5T PO; -FLEEENE12 PR; -FURO20TA2 PO; -GABA-1171 PO; -MERO1VIA3 IV; -METO1TAB32 PO; -MILKSUS3 PO; -MIRT-62 PO; -OMEP1CAP73 PO; -SENN-111 PO; -TRAM50TA2 PO
[2022-10-09 13:23] LABS: BASO # 0.1 10^3/uL (0.0-0.2); BASO % 0.3 % (0.0-1.0); EOS # 0.4 10^3/uL (0.0-0.5); EOS % 1.3 % (0.0-3.0); HEMATOCRIT 35.8 % (36.0-47.0); HEMOGLOBIN 10.7 g/dl (12.0-15.5); LYMPH # 2.5 10^3/uL (1.5-5.0); LYMPH % 8.8 % (24.0-44.0); MEAN CORPUSCULAR HEMOGLOBIN 33.9 pg (27.0-33.0); MEAN CORPUSCULAR HGB CONC 29.9 g/dl (32.0-36.5); MEAN CORPUSCULAR VOLUME 113.3 fl (80.0-96.0); MONO # 1.3 10^3/uL (0.0-0.8); MONO % 4.4 % (2.0-8.0); NEUTROPHILS % 83.6 % (36.0-66.0); PLATELET COUNT, AUTOMATED 369 10^3/uL (150-450); RED BLOOD COUNT 3.16 10^6/uL (4.00-5.40); WHITE BLOOD COUNT 28.6 10^3/uL (4.0-10.0)
[2022-10-09 14:17] LABS: ALBUMIN 1.6 GM/DL (3.2-5.2); BILIRUBIN,DIRECT 0.2 MG/DL (0.0-0.2); BILIRUBIN,TOTAL 0.5 MG/DL (0.2-1.0); CALCIUM LEVEL 8.9 MG/DL (8.8-10.2); CREATININE FOR GFR 1.85 MG/DL (0.55-1.30); GLOMERULAR FILTRATION RATE 28.7 (>39); POTASSIUM SERUM 4.9 MEQ/L (3.5-5.1); TOTAL PROTEIN 5.6 GM/DL (6.4-8.2)
[2022-10-09] MEDS ORDERED: PIPERACILLIN/TAZOBACTAM SOD 3.375 GM in D5W MINI-BAG PLUS 50 ML IV ONE (15:30)
[2022-10-09] MEDS ORDERED: VANCOMYCIN HCL 1,250 MG in NS 250 ML IV ONE (15:30)
[2022-10-09] MEDS ORDERED: VANCOMYCIN HCL 750 MG, VIAL MATE ADAPTER 1 EACH in D5W 250 ML IV ONE (16:00)
[2022-10-09] MEDS ORDERED: GLUCAGON INJ 1MG VIAL SC PRN (16:55)
[2022-10-09] MEDS ORDERED: DEXTROSE 50% 50 ML SYRINGE IV PRN (16:55)
[2022-10-09] MEDS ORDERED: ACETAMINOPHEN TAB 650MG DOSE (2X325MG) PO PRN (16:55)
[2022-10-09] MEDS ORDERED: GLUCOSE 4GM CHEW TABLET PO PRN (16:55)
[2022-10-09] MEDS ORDERED: VANCOMYCIN HCL 500 MG in D5W MINI-BAG PLUS 100 ML IV ONE (17:00)
[2022-10-09] MEDS ORDERED: VANCOMYCIN HCL 750 MG, VIAL MATE ADAPTER 1 EACH in NS 250 ML IV SCH (17:05)
[2022-10-09] MEDS ORDERED: **hydrALAZINE** 10 MG TAB PO PRN (17:45)
[2022-10-09] MEDS ORDERED: MIRT-62 PO (18:19)
[2022-10-09] MEDS ORDERED: GABA-1171 PO (18:19)
[2022-10-09] MEDS ORDERED: SENN-111 PO (18:19)
[2022-10-09] MEDS ORDERED: ACET650T15 PO (18:19)
[2022-10-09] MEDS ORDERED: METO1TAB32 PO (18:19)
[2022-10-09] MEDS ORDERED: BISA10SU27 PR (18:19)
[2022-10-09] MEDS ORDERED: NYST1POW9 TOP (18:19)
[2022-10-09] MEDS ORDERED: ONDA4TAB6 PO (18:19)
[2022-10-09] MEDS ORDERED: OMEP1CAP73 PO (18:19)
[2022-10-09] MEDS ORDERED: ACET1TAB55 PO (18:19)
[2022-10-09] MEDS ORDERED: FURO20TA2 PO (18:19)
[2022-10-09] MEDS ORDERED: FLEEENE12 PR (18:19)
[2022-10-09] MEDS ORDERED: MILKSUS3 PO (18:19)
[2022-10-09] MEDS ORDERED: ELIQ2.5T PO (18:19)
[2022-10-09] MEDS ORDERED: TRAM50TA2 PO (18:19)
[2022-10-09] MEDS ORDERED: HOME MED LIST COMPLETE! XX SCH (18:20)
[2022-10-09] MEDS: INSULIN LISPRO (NovoLOG) PER UNIT SC SCH ×2 (19:34→20:54)
[2022-10-09 22:30] VITALS: BP 143/73
[2022-10-09] MEDS: PIPERACILLIN/TAZOBACTAM SOD 3.375 GM in D5W MINI-BAG PLUS 50 ML IV SCH (23:12)
[2022-10-10 02:00] VITALS: BP 139/72
[2022-10-10] MEDS ORDERED: ONDANSETRON 4MG ORAL DISINTEGRATING TAB PO PRN (04:30)
[2022-10-10] MEDS: PIPERACILLIN/TAZOBACTAM SOD 3.375 GM in D5W MINI-BAG PLUS 50 ML IV SCH ×4 (04:50→22:39)
[2022-10-10 05:25] VITALS: BP 136/72
[2022-10-10 06:24] LABS: HEMATOCRIT 32.5 % (36.0-47.0); MEAN CORPUSCULAR HEMOGLOBIN 34.5 pg (27.0-33.0); MEAN CORPUSCULAR HGB CONC 30.8 g/dl (32.0-36.5); MEAN CORPUSCULAR VOLUME 112.1 fl (80.0-96.0); PLATELET COUNT, AUTOMATED 350 10^3/uL (150-450); WHITE BLOOD COUNT 23.9 10^3/uL (4.0-10.0)
[2022-10-10 07:13] LABS: ALBUMIN 1.5 GM/DL (3.2-5.2); BILIRUBIN,TOTAL 0.4 MG/DL (0.2-1.0); CALCIUM LEVEL 8.7 MG/DL (8.8-10.2); CREATININE FOR GFR 1.47 MG/DL (0.55-1.30); GLOMERULAR FILTRATION RATE 37.4 (>39); MAGNESIUM LEVEL 1.5 MG/DL (1.8-2.4); TOTAL PROTEIN 5.4 GM/DL (6.4-8.2)
[2022-10-10] MEDS: INSULIN LISPRO (NovoLOG) PER UNIT SC SCH ×4 (07:30→21:00)
[2022-10-10] MEDS ORDERED: MAGNESIUM OXIDE 400MG TAB (MAG-OX) PO ONE (07:45)
[2022-10-10] MEDS ORDERED: BISACODYL 10 MG SUPP PR PRN (07:45)
[2022-10-10] MEDS: APIXABAN 2.5 MG TAB (ELIQUIS) PO SCH ×2 (09:00→09:25)
[2022-10-10] MEDS ORDERED: MIRTAZAPINE 7.5MG PER 1/2 TABLET PO SCH (09:00)
[2022-10-10] MEDS: GABAPENTIN 100 MG CAP PO SCH ×2 (09:23→21:00)
[2022-10-10] MEDS: buPROPion **SR TABLET** (ZYBAN) 150MG PO SCH ×2 (09:23→22:51)
[2022-10-10] MEDS: OMEPRAZOLE 20MG CAP PO SCH (09:23)
[2022-10-10] MEDS: FUROSEMIDE 20 MG TAB PO SCH ×2 (09:25→21:00)
[2022-10-10] MEDS: SENNA 8.6 MG TAB (SENOKOT) PO SCH (09:25)
[2022-10-10] MEDS: allopurinoL 100 MG TAB PO SCH (09:25)
[2022-10-10] MEDS: traMADol 50 MG TAB PO SCH ×2 (09:25→21:00)
[2022-10-10] MEDS: FLUoxetine 20MG CAP PO SCH (09:26)
[2022-10-10] MEDS: METOPROLOL SUCC *XL* 25MG TAB (TopROL *XL*) PO SCH (09:26)
[2022-10-10] MEDS: VANCOMYCIN HCL 1,000 MG, VIAL MATE ADAPTER 1 EACH in D5W 250 ML IV SCH (09:26)
[2022-10-10 10:00] VITALS: BP 111/54
[2022-10-10] MEDS: NYSTATIN 100,000 UNITS/GM TOPICAL PWD 15 GM TOP SCH ×2 (11:32→21:00)
[2022-10-10 14:00] VITALS: BP 121/62
[2022-10-10 14:24] LABS: BASO # 0.1 10^3/uL (0.0-0.2); BASO % 0.3 % (0.0-1.0); EOS # 0.8 10^3/uL (0.0-0.5); EOS % 3.9 % (0.0-3.0); HEMATOCRIT 33.8 % (36.0-47.0); HEMOGLOBIN 10.3 g/dl (12.0-15.5); LYMPH % 10.3 % (24.0-44.0); MEAN CORPUSCULAR HEMOGLOBIN 33.8 pg (27.0-33.0); MEAN CORPUSCULAR HGB CONC 30.5 g/dl (32.0-36.5); MEAN CORPUSCULAR VOLUME 110.8 fl (80.0-96.0); MONO # 0.9 10^3/uL (0.0-0.8); MONO % 4.6 % (2.0-8.0); NEUTROPHILS # 15.4 10^3/uL (1.5-8.5); NEUTROPHILS % 79.2 % (36.0-66.0); PLATELET COUNT, AUTOMATED 353 10^3/uL (150-450); RED BLOOD COUNT 3.05 10^6/uL (4.00-5.40); WHITE BLOOD COUNT 19.5 10^3/uL (4.0-10.0)
[2022-10-10] MEDS: MIRTAZAPINE 7.5MG PER 1/2 TABLET PO SCH (21:00)
[2022-10-10] MEDS: tiZANidine 4 MG TAB PO SCH (21:00)
[2022-10-10] MEDS: SIMVASTATIN 20 MG TAB PO SCH (21:00)
[2022-10-10] MEDS: NIACIN SR (NIASPAN) 500MG TAB PO SCH (21:00)
[2022-10-10 21:04] VITALS: BP 118/62
[2022-10-11 02:00] VITALS: BP 119/62
[2022-10-11] MEDS: PIPERACILLIN/TAZOBACTAM SOD 3.375 GM in D5W MINI-BAG PLUS 50 ML IV SCH ×2 (05:14→11:15)
[2022-10-11 06:00] VITALS: BP 118/65
[2022-10-11 07:46] LABS: BASO # 0.1 10^3/uL (0.0-0.2); BASO % 0.3 % (0.0-1.0); EOS # 0.8 10^3/uL (0.0-0.5); EOS % 4.7 % (0.0-3.0); HEMATOCRIT 35.9 % (36.0-47.0); HEMOGLOBIN 10.6 g/dl (12.0-15.5); LYMPH # 1.9 10^3/uL (1.5-5.0); MEAN CORPUSCULAR HEMOGLOBIN 33.7 pg (27.0-33.0); MEAN CORPUSCULAR HGB CONC 29.5 g/dl (32.0-36.5); MONO # 1.4 10^3/uL (0.0-0.8); MONO % 7.8 % (2.0-8.0); NEUTROPHILS # 12.9 10^3/uL (1.5-8.5); NEUTROPHILS % 74.4 % (36.0-66.0); PLATELET COUNT, AUTOMATED 305 10^3/uL (150-450); RED BLOOD COUNT 3.15 10^6/uL (4.00-5.40); WHITE BLOOD COUNT 17.3 10^3/uL (4.0-10.0)
[2022-10-11 07:49] LABS: ALBUMIN 1.5 GM/DL (3.2-5.2); BILIRUBIN,TOTAL 0.4 MG/DL (0.2-1.0); CALCIUM LEVEL 8.8 MG/DL (8.8-10.2); CREATININE FOR GFR 1.41 MG/DL (0.55-1.30); GLOMERULAR FILTRATION RATE 39.3 (>39); MAGNESIUM LEVEL 1.5 MG/DL (1.8-2.4); TOTAL PROTEIN 5.6 GM/DL (6.4-8.2); VANCOMYCIN LEVEL TROUGH 19.2 UG/ML (10.0-20.0)
[2022-10-11] MEDS ORDERED: MAGNESIUM OXIDE 400MG TAB (MAG-OX) PO ONE (07:55)
[2022-10-11] MEDS: INSULIN LISPRO (NovoLOG) PER UNIT SC SCH ×4 (08:00→20:12)
[2022-10-11] MEDS: traMADol 50 MG TAB PO SCH ×2 (09:00→20:22)
[2022-10-11 10:00] VITALS: BP 130/69
[2022-10-11] MEDS: buPROPion **SR TABLET** (ZYBAN) 150MG PO SCH ×2 (10:03→20:20)
[2022-10-11] MEDS: FUROSEMIDE 20 MG TAB PO SCH ×2 (10:03→20:21)
[2022-10-11] MEDS: allopurinoL 100 MG TAB PO SCH (10:03)
[2022-10-11] MEDS: VANCOMYCIN HCL 1,000 MG, VIAL MATE ADAPTER 1 EACH in D5W 250 ML IV SCH (10:03)
[2022-10-11] MEDS: GABAPENTIN 100 MG CAP PO SCH ×2 (10:04→20:20)
[2022-10-11] MEDS: FLUoxetine 20MG CAP PO SCH (10:04)
[2022-10-11] MEDS: OMEPRAZOLE 20MG CAP PO SCH (10:05)
[2022-10-11] MEDS: SENNA 8.6 MG TAB (SENOKOT) PO SCH (10:05)
[2022-10-11] MEDS: METOPROLOL SUCC *XL* 25MG TAB (TopROL *XL*) PO SCH (10:05)
[2022-10-11] MEDS: NYSTATIN 100,000 UNITS/GM TOPICAL PWD 15 GM TOP SCH ×2 (10:06→20:22)
[2022-10-11] MEDS: APIXABAN 2.5 MG TAB (ELIQUIS) PO SCH ×2 (11:38→20:20)
[2022-10-11 14:00] VITALS: BP 134/71
[2022-10-11] MEDS: PIPERACILLIN/TAZOBACTAM SOD 2.25 GM in D5W MINI-BAG PLUS 50 ML IV SCH ×2 (17:00→23:36)
[2022-10-11 18:00] VITALS: BP 130/70
[2022-10-11] MEDS: SIMVASTATIN 20 MG TAB PO SCH (20:20)
[2022-10-11] MEDS: MIRTAZAPINE 7.5MG PER 1/2 TABLET PO SCH (20:20)
[2022-10-11] MEDS: NIACIN SR (NIASPAN) 500MG TAB PO SCH (20:20)
[2022-10-11] MEDS: tiZANidine 4 MG TAB PO SCH (20:21)
[2022-10-11 20:22] VITALS: BP 132/70
[2022-10-12 02:00] VITALS: BP 107/62
[2022-10-12] MEDS: PIPERACILLIN/TAZOBACTAM SOD 2.25 GM in D5W MINI-BAG PLUS 50 ML IV SCH (05:59)
[2022-10-12 06:00] VITALS: BP 108/63
[2022-10-12] MEDS ORDERED: LevoFLOXacin 750 MG TABLET PO SCH ×2 (06:00→10:00)
[2022-10-12] MEDS: INSULIN LISPRO (NovoLOG) PER UNIT SC SCH ×4 (08:59→21:00)
[2022-10-12] MEDS: FLUoxetine 20MG CAP PO SCH (09:00)
[2022-10-12] MEDS: allopurinoL 100 MG TAB PO SCH (09:00)
[2022-10-12] MEDS: FUROSEMIDE 20 MG TAB PO SCH ×2 (09:00→21:28)
[2022-10-12] MEDS: buPROPion **SR TABLET** (ZYBAN) 150MG PO SCH ×2 (09:00→21:28)
[2022-10-12] MEDS: OMEPRAZOLE 20MG CAP PO SCH (09:00)
[2022-10-12] MEDS: traMADol 50 MG TAB PO SCH ×2 (09:01→21:00)
[2022-10-12] MEDS: GABAPENTIN 100 MG CAP PO SCH ×2 (09:01→21:28)
[2022-10-12] MEDS: APIXABAN 2.5 MG TAB (ELIQUIS) PO SCH ×2 (09:02→21:27)
[2022-10-12] MEDS: SENNA 8.6 MG TAB (SENOKOT) PO SCH (09:02)
[2022-10-12] MEDS: METOPROLOL SUCC *XL* 25MG TAB (TopROL *XL*) PO SCH (09:03)
[2022-10-12] MEDS: NYSTATIN 100,000 UNITS/GM TOPICAL PWD 15 GM TOP SCH ×2 (09:04→21:32)
[2022-10-12 09:34] LABS: BASO # 0.1 10^3/uL (0.0-0.2); BASO % 0.3 % (0.0-1.0); EOS # 0.4 10^3/uL (0.0-0.5); EOS % 1.6 % (0.0-3.0); HEMATOCRIT 34.3 % (36.0-47.0); HEMOGLOBIN 10.4 g/dl (12.0-15.5); LYMPH # 2.4 10^3/uL (1.5-5.0); LYMPH % 9.3 % (24.0-44.0); MEAN CORPUSCULAR HEMOGLOBIN 33.9 pg (27.0-33.0); MEAN CORPUSCULAR HGB CONC 30.3 g/dl (32.0-36.5); MEAN CORPUSCULAR VOLUME 111.7 fl (80.0-96.0); MONO % 6.9 % (2.0-8.0); NEUTROPHILS # 20.5 10^3/uL (1.5-8.5); NEUTROPHILS % 80.5 % (36.0-66.0); PLATELET COUNT, AUTOMATED 290 10^3/uL (150-450); RED BLOOD COUNT 3.07 10^6/uL (4.00-5.40); WHITE BLOOD COUNT 25.4 10^3/uL (4.0-10.0)
[2022-10-12 09:39] LABS: MONO # 1.7 10^3/uL (0.0-0.8)
[2022-10-12 10:00] VITALS: BP 113/62
[2022-10-12 10:34] LABS: ALBUMIN 1.5 GM/DL (3.2-5.2); BILIRUBIN,TOTAL 0.5 MG/DL (0.2-1.0); CALCIUM LEVEL 8.4 MG/DL (8.8-10.2); CREATININE FOR GFR 1.53 MG/DL (0.55-1.30); GLOMERULAR FILTRATION RATE 35.7 (>39); MAGNESIUM LEVEL 1.6 MG/DL (1.8-2.4); POTASSIUM SERUM 4.1 MEQ/L (3.5-5.1); TOTAL PROTEIN 5.4 GM/DL (6.4-8.2)
[2022-10-12] MEDS ORDERED: MAGNESIUM OXIDE 400MG TAB (MAG-OX) PO ONE (11:45)
[2022-10-12 14:00] VITALS: BP 127/66
[2022-10-12 18:00] VITALS: BP 137/86
[2022-10-12 20:30] VITALS: BP 117/66
[2022-10-12] MEDS: MIRTAZAPINE 7.5MG PER 1/2 TABLET PO SCH (21:27)
[2022-10-12] MEDS: NIACIN SR (NIASPAN) 500MG TAB PO SCH (21:28)
[2022-10-12] MEDS: tiZANidine 4 MG TAB PO SCH (21:28)
[2022-10-12] MEDS: SIMVASTATIN 20 MG TAB PO SCH (21:29)
[2022-10-13] VITALS (8 sets, daily range): BP systolic 80–130; BP diastolic 40–67
[2022-10-13] MEDS ORDERED: LR 1,000 ML IV ONE (02:05)
[2022-10-13 09:27] LABS: BASO # 0.1 10^3/uL (0.0-0.2); BASO % 0.2 % (0.0-1.0); EOS # 0.5 10^3/uL (0.0-0.5); EOS % 1.8 % (0.0-3.0); HEMATOCRIT 31.7 % (36.0-47.0); HEMOGLOBIN 9.5 g/dl (12.0-15.5); LYMPH # 2.6 10^3/uL (1.5-5.0); LYMPH % 9.5 % (24.0-44.0); MEAN CORPUSCULAR HEMOGLOBIN 34.2 pg (27.0-33.0); MONO % 8.2 % (2.0-8.0); NEUTROPHILS # 21.6 10^3/uL (1.5-8.5); NEUTROPHILS % 78.8 % (36.0-66.0); PLATELET COUNT, AUTOMATED 218 10^3/uL (150-450); RED BLOOD COUNT 2.78 10^6/uL (4.00-5.40); WHITE BLOOD COUNT 27.5 10^3/uL (4.0-10.0)
[2022-10-13 09:29] LABS: MONO # 2.3 10^3/uL (0.0-0.8)
[2022-10-13] MEDS: INSULIN LISPRO (NovoLOG) PER UNIT SC SCH ×4 (09:49→21:00)
[2022-10-13] MEDS: buPROPion **SR TABLET** (ZYBAN) 150MG PO SCH ×2 (09:49→23:04)
[2022-10-13] MEDS: OMEPRAZOLE 20MG CAP PO SCH (09:49)
[2022-10-13] MEDS: FUROSEMIDE 20 MG TAB PO SCH ×2 (09:50→23:04)
[2022-10-13] MEDS: traMADol 50 MG TAB PO SCH ×2 (09:50→21:00)
[2022-10-13] MEDS: SENNA 8.6 MG TAB (SENOKOT) PO SCH (09:50)
[2022-10-13] MEDS: APIXABAN 2.5 MG TAB (ELIQUIS) PO SCH (09:50)
[2022-10-13] MEDS: FLUoxetine 20MG CAP PO SCH (09:51)
[2022-10-13] MEDS: GABAPENTIN 100 MG CAP PO SCH ×2 (09:51→23:04)
[2022-10-13] MEDS: allopurinoL 100 MG TAB PO SCH (09:51)
[2022-10-13] MEDS: METOPROLOL SUCC *XL* 25MG TAB (TopROL *XL*) PO SCH (09:53)
[2022-10-13] MEDS: NYSTATIN 100,000 UNITS/GM TOPICAL PWD 15 GM TOP SCH ×2 (09:58→23:06)
[2022-10-13 09:59] LABS: ALBUMIN 1.4 GM/DL (3.2-5.2); BILIRUBIN,TOTAL 0.3 MG/DL (0.2-1.0); CALCIUM LEVEL 9.3 MG/DL (8.8-10.2); CREATININE FOR GFR 1.91 MG/DL (0.55-1.30); GLOMERULAR FILTRATION RATE 27.7 (>39); MAGNESIUM LEVEL 1.8 MG/DL (1.8-2.4); POTASSIUM SERUM 4.4 MEQ/L (3.5-5.1)
[2022-10-13] MEDS: NIACIN SR (NIASPAN) 500MG TAB PO SCH (23:03)
[2022-10-13] MEDS: tiZANidine 4 MG TAB PO SCH (23:04)
[2022-10-13] MEDS: SIMVASTATIN 20 MG TAB PO SCH (23:04)
[2022-10-13] MEDS: MIRTAZAPINE 7.5MG PER 1/2 TABLET PO SCH (23:04)
[2022-10-13] MEDS: MEROPENEM INJ 1 GM in IV 1 EA IV SCH (23:06)
[2022-10-14 02:00] VITALS: BP 105/72
[2022-10-14] MEDS: MEROPENEM INJ 1 GM in IV 1 EA IV SCH ×2 (05:48→17:13)
[2022-10-14 06:00] VITALS: BP 108/69
[2022-10-14 08:08] LABS: HEMOGLOBIN 9.3 g/dl (12.0-15.5); MEAN CORPUSCULAR HEMOGLOBIN 34.3 pg (27.0-33.0); PLATELET COUNT, AUTOMATED 199 10^3/uL (150-450); RED BLOOD COUNT 2.71 10^6/uL (4.00-5.40); WHITE BLOOD COUNT 15.4 10^3/uL (4.0-10.0)
[2022-10-14 08:24] LABS: MEAN CORPUSCULAR VOLUME 114.4 fl (80.0-96.0)
[2022-10-14 08:29] LABS: ALBUMIN 1.3 G/DL (3.2-5.2); ALT/SGPT 8.99999 U/L (7.0-40); BILIRUBIN,TOTAL 0.3 MG/DL (0.3-1.2); CALCIUM LEVEL 8.8 MG/DL (8.3-10.6); CREATININE FOR GFR 1.72 MG/DL (0.55-1.30); GLOMERULAR FILTRATION RATE 31.2 (>39); POTASSIUM SERUM 4.3 MMOL/L (3.5-5.1); TOTAL PROTEIN 4.8 G/DL (5.7-8.2)
[2022-10-14 08:47] VITALS: BP 118/72
[2022-10-14] MEDS: traMADol 50 MG TAB PO SCH ×2 (09:00→21:00)
[2022-10-14] MEDS: INSULIN LISPRO (NovoLOG) PER UNIT SC SCH ×4 (09:53→21:00)
[2022-10-14] MEDS: FLUoxetine 20MG CAP PO SCH (10:39)
[2022-10-14] MEDS: buPROPion **SR TABLET** (ZYBAN) 150MG PO SCH ×2 (10:40→23:05)
[2022-10-14] MEDS: OMEPRAZOLE 20MG CAP PO SCH (10:40)
[2022-10-14] MEDS: GABAPENTIN 100 MG CAP PO SCH ×2 (10:40→23:02)
[2022-10-14] MEDS: FUROSEMIDE 20 MG TAB PO SCH ×2 (10:41→23:02)
[2022-10-14] MEDS: SENNA 8.6 MG TAB (SENOKOT) PO SCH (10:41)
[2022-10-14] MEDS: METOPROLOL SUCC *XL* 25MG TAB (TopROL *XL*) PO SCH (10:42)
[2022-10-14] MEDS: NYSTATIN 100,000 UNITS/GM TOPICAL PWD 15 GM TOP SCH ×2 (10:46→23:06)
[2022-10-14 13:41] VITALS: BP 118/66
[2022-10-14 22:00] VITALS: BP 118/62
[2022-10-14] MEDS: MIRTAZAPINE 7.5MG PER 1/2 TABLET PO SCH (23:01)
[2022-10-14] MEDS: SIMVASTATIN 20 MG TAB PO SCH (23:02)
[2022-10-14] MEDS: NIACIN SR (NIASPAN) 500MG TAB PO SCH (23:02)
[2022-10-14] MEDS: tiZANidine 4 MG TAB PO SCH (23:03)
[2022-10-15] MEDS: MEROPENEM INJ 1 GM in IV 1 EA IV SCH ×2 (05:25→17:48)
[2022-10-15 06:00] VITALS: BP 101/48
[2022-10-15 07:03] LABS: HEMATOCRIT 30.3 % (36.0-47.0); HEMOGLOBIN 9.3 g/dl (12.0-15.5); MEAN CORPUSCULAR HEMOGLOBIN 34.4 pg (27.0-33.0); MEAN CORPUSCULAR HGB CONC 30.7 g/dl (32.0-36.5); MEAN CORPUSCULAR VOLUME 112.2 fl (80.0-96.0); PLATELET COUNT, AUTOMATED 206 10^3/uL (150-450); WHITE BLOOD COUNT 15.3 10^3/uL (4.0-10.0)
[2022-10-15 07:53] LABS: ALBUMIN 1.4 G/DL (3.2-5.2); ALT/SGPT 8.99999 U/L (7.0-40); BILIRUBIN,TOTAL 0.3 MG/DL (0.3-1.2); CALCIUM LEVEL 8.5 MG/DL (8.3-10.6); CREATININE FOR GFR 1.53 MG/DL (0.55-1.30); GLOMERULAR FILTRATION RATE 35.7 (>39); POTASSIUM SERUM 5.1 MMOL/L (3.5-5.1)
[2022-10-15 08:00] VITALS: BP 112/62
[2022-10-15] MEDS: INSULIN LISPRO (NovoLOG) PER UNIT SC SCH ×4 (08:30→21:00)
[2022-10-15] MEDS: buPROPion **SR TABLET** (ZYBAN) 150MG PO SCH ×2 (09:41→21:41)
[2022-10-15] MEDS: METOPROLOL SUCC *XL* 25MG TAB (TopROL *XL*) PO SCH (09:42)
[2022-10-15] MEDS: OMEPRAZOLE 20MG CAP PO SCH (09:43)
[2022-10-15] MEDS: FUROSEMIDE 20 MG TAB PO SCH ×2 (09:43→21:42)
[2022-10-15] MEDS: GABAPENTIN 100 MG CAP PO SCH ×2 (09:43→21:42)
[2022-10-15] MEDS: SENNA 8.6 MG TAB (SENOKOT) PO SCH (09:44)
[2022-10-15] MEDS: FLUoxetine 20MG CAP PO SCH (09:49)
[2022-10-15] MEDS: traMADol 50 MG TAB PO SCH ×2 (09:49→21:44)
[2022-10-15] MEDS: NYSTATIN 100,000 UNITS/GM TOPICAL PWD 15 GM TOP SCH ×2 (09:50→21:45)
[2022-10-15 10:00] VITALS: BP 127/66
[2022-10-15 12:00] VITALS: BP 122/64
[2022-10-15 14:00] VITALS: BP 123/66
[2022-10-15] MEDS ORDERED: traMADol 50 MG TAB PO PRN (17:30)
[2022-10-15] MEDS: NIACIN SR (NIASPAN) 500MG TAB PO SCH (21:41)
[2022-10-15] MEDS: SIMVASTATIN 20 MG TAB PO SCH (21:41)
[2022-10-15] MEDS: tiZANidine 4 MG TAB PO SCH (21:42)
[2022-10-15] MEDS: MIRTAZAPINE 7.5MG PER 1/2 TABLET PO SCH (21:42)
[2022-10-15] MEDS: APIXABAN 2.5 MG TAB (ELIQUIS) PO SCH (21:42)
[2022-10-15 22:00] VITALS: BP 119/66
[2022-10-16 02:00] VITALS: BP 105/50
[2022-10-16 06:00] VITALS: BP 114/53
[2022-10-16] MEDS: MEROPENEM INJ 1 GM in IV 1 EA IV SCH (06:02)
[2022-10-16] MEDS: INSULIN LISPRO (NovoLOG) PER UNIT SC SCH (07:30)
[2022-10-16 08:26] LABS: HEMATOCRIT 31.1 % (36.0-47.0); HEMOGLOBIN 9.4 g/dl (12.0-15.5); MEAN CORPUSCULAR HEMOGLOBIN 33.8 pg (27.0-33.0); MEAN CORPUSCULAR HGB CONC 30.2 g/dl (32.0-36.5); MEAN CORPUSCULAR VOLUME 111.9 fl (80.0-96.0); PLATELET COUNT, AUTOMATED 175 10^3/uL (150-450); RED BLOOD COUNT 2.78 10^6/uL (4.00-5.40); WHITE BLOOD COUNT 11.4 10^3/uL (4.0-10.0)
[2022-10-16] MEDS: traMADol 50 MG TAB PO SCH (09:00)
[2022-10-16] MEDS: GABAPENTIN 100 MG CAP PO SCH (09:00)
[2022-10-16 09:18] LABS: ALBUMIN 1.4 G/DL (3.2-5.2); ALT/SGPT < 9 U/L (7.0-40); BILIRUBIN,TOTAL 0.3 MG/DL (0.3-1.2); BLOOD UREA NITROGEN 42 MG/DL (9-23); CALCIUM LEVEL 9.4 MG/DL (8.3-10.6); CARBON DIOXIDE LEVEL 24 MMOL/L (20-31); CHLORIDE LEVEL 107 MMOL/L (98-107); CREATININE FOR GFR 1.47 MG/DL (0.55-1.30); GLOMERULAR FILTRATION RATE 37.4 (>39); GLUCOSE, FASTING 151 MG/DL (74-106); POTASSIUM SERUM 4.3 MMOL/L (3.5-5.1); SODIUM LEVEL 140 MMOL/L (136-145); TOTAL PROTEIN 4.9 G/DL (5.7-8.2)
[2022-10-16] MEDS ORDERED: MERO1VIA3 IV (09:38)
[2022-10-16] MEDS ORDERED: TRAM50TA2 PO (09:38)
[2022-10-16] MEDS: FLUoxetine 20MG CAP PO SCH (10:20)
[2022-10-16] MEDS: APIXABAN 2.5 MG TAB (ELIQUIS) PO SCH (10:20)
[2022-10-16] MEDS: FUROSEMIDE 20 MG TAB PO SCH (10:20)
[2022-10-16 10:21] VITALS: BP 113/55
[2022-10-16] MEDS: buPROPion **SR TABLET** (ZYBAN) 150MG PO SCH (10:21)
[2022-10-16] MEDS: OMEPRAZOLE 20MG CAP PO SCH (10:21)
[2022-10-16] MEDS: SENNA 8.6 MG TAB (SENOKOT) PO SCH (10:21)
[2022-10-16] MEDS: METOPROLOL SUCC *XL* 25MG TAB (TopROL *XL*) PO SCH (10:21)
[2022-10-16] MEDS: NYSTATIN 100,000 UNITS/GM TOPICAL PWD 15 GM TOP SCH (10:22)
== END 2022-10-16 12:27 | DRG 689 ==
LOC: M ED 12:37 → EDBD 12:37 → M ED INP 16:53 → EEVIPCON 16:53 → ENRESERV 21:46 → M MSPAV 22:28
PROVIDERS: ADMIT Family Medicine; ATTEND Internal Medicine
DX: N39.0 Urinary tract infection, site not specified (principal); J18.9 Pneumonia, unspecified organism; I50.32 Chronic diastolic (congestive) heart failure; I13.0 Hypertensive heart and chronic kidney disease with heart failure and stage 1 through stage 4 chronic kidney disease, or unspecified chronic kidney disease; E11.22 Type 2 diabetes mellitus with diabetic chronic kidney disease; M10.9 Gout, unspecified; N18.9 Chronic kidney disease, unspecified; M19.90 Unspecified osteoarthritis, unspecified site; D72.829 Elevated white blood cell count, unspecified; Z79.01 Long term (current) use of anticoagulants; Z79.84 Long term (current) use of oral hypoglycemic drugs; Z79.899 Other long term (current) drug therapy; Z20.822 Contact with and (suspected) exposure to COVID-19; D53.9 Nutritional anemia, unspecified; B96.1 Klebsiella pneumoniae [K. pneumoniae] as the cause of diseases classified elsewhere; N13.30 Unspecified hydronephrosis; Z66 Do not resuscitate

== ENCOUNTER → 2022-10-09 | Outpatient (REF) | payer MEDICARE, MEDICAID ==
[2022-10-09 10:56] LABS: HEMATOCRIT 33.2 % (36.0-47.0); HEMOGLOBIN 10.1 g/dl (12.0-15.5); MEAN CORPUSCULAR HEMOGLOBIN 34.6 pg (27.0-33.0); MEAN CORPUSCULAR HGB CONC 30.4 g/dl (32.0-36.5); MEAN CORPUSCULAR VOLUME 113.7 fl (80.0-96.0); PLATELET COUNT, AUTOMATED 332 10^3/uL (150-450); RED BLOOD COUNT 2.92 10^6/uL (4.00-5.40); WHITE BLOOD COUNT 28.2 10^3/uL (4.0-10.0)
[2022-10-09 11:53] LABS: CALCIUM LEVEL 8.4 MG/DL (8.8-10.2); CREATININE FOR GFR 1.82 MG/DL (0.55-1.30); GLOMERULAR FILTRATION RATE 29.2 (>39); POTASSIUM SERUM 4.1 MEQ/L (3.5-5.1)
== END ==
LOC: SKLAB4 09:04
PROVIDERS: ATTEND Nurse Practitioner Adult Health
DX: N17.9 Acute kidney failure, unspecified (principal)

== ENCOUNTER → 2022-10-09 | Outpatient (REF) | payer MEDICARE, MEDICAID ==
[2022-10-08 09:21] LABS: CALCIUM LEVEL 8.8 MG/DL (8.8-10.2); CREATININE FOR GFR 1.98 MG/DL (0.55-1.30); GLOMERULAR FILTRATION RATE 26.5 (>39); POTASSIUM SERUM 4.3 MEQ/L (3.5-5.1)
== END ==
LOC: SKLAB4 09:01
PROVIDERS: ATTEND Nurse Practitioner Adult Health
DX: N18.9 Chronic kidney disease, unspecified (principal)

== ENCOUNTER → 2022-10-23 | Outpatient (REF) | payer MEDICARE, MEDICAID ==
[~2022-10-23] MED LIST changes: +ACET1TAB55 PO; +ACET650T15 PO; +BISA10SU27 PR; +ELIQ2.5T PO; +FLEEENE12 PR; +FURO20TA2 PO; +GABA-1171 PO; +MERO1VIA3 IV; +METO1TAB32 PO; +MILKSUS3 PO; +MIRT-62 PO; +OMEP1CAP73 PO; +SENN-111 PO; +TRAM50TA2 PO
[2022-10-23 13:06] LABS: APPEARANCE, URINE MANUAL CLOUDY (CLEAR); BILIRUBIN, URINE MANUAL OBSCURED (NEGATIVE); COLOR, URINE MANUAL RED (YELLOW); GLUCOSE, URINE (UA) MANUAL NEGATIVE (NEGATIVE); KETONE, URINE MANUAL OBSCURED mg/dL (NEGATIVE); LEUKOCYTE ESTERASE, URINE MAN POSITIVE (NEGATIVE); NITRITE, URINE MANUAL OBSCURED (NEGATIVE); PROTEIN, URINE MANUAL 2+ mg/dL (NEGATIVE); SPECIFIC GRAVITY,URINE MANUAL 1.015 (1.002-1.035); UROBILINOGEN, URINE MANUAL OBSCURED mg/dl (NORMAL)
[2022-10-23 13:07] LABS: BLOOD URINE MANUAL POSITIVE (NEGATIVE)
[2022-10-23 13:13] LABS: BACTERIA, URINE NONE SEEN; HYALINE CAST, URINE NONE SEEN /lpf (0-1); RBC, URINE TNTC /hpf (0-3); SQUAMOUS EPITHELIAL CELL URINE NONE SEEN /hpf (SMALL AMT); WBC, URINE 30-40 /hpf (0-3)
== END ==
LOC: SKLAB4 12:12
PROVIDERS: ATTEND Internal Medicine
DX: R31.9 Hematuria, unspecified (principal)

== ENCOUNTER → 2022-10-26 | Outpatient (REF) | payer MEDICARE, MEDICAID ==
[2022-10-22 08:36] LABS: CALCIUM LEVEL 8.3 MG/DL (8.3-10.6); CREATININE FOR GFR 1.32 MG/DL (0.55-1.30); GLOMERULAR FILTRATION RATE 42.4 (>39); POTASSIUM SERUM 4.5 MMOL/L (3.5-5.1)
== END ==
LOC: SKLAB4 09:12
PROVIDERS: ATTEND Nurse Practitioner Adult Health
DX: N18.9 Chronic kidney disease, unspecified (principal)

== ENCOUNTER → 2022-11-04 | Outpatient (REF) | payer MEDICARE, MEDICAID ==
[2022-11-04 02:59] LABS: APPEARANCE, URINE MANUAL TURBID (CLEAR)
[2022-11-04 03:00] LABS: COLOR, URINE MANUAL DK YELLOW (YELLOW)
[2022-11-04 03:01] LABS: BILIRUBIN, URINE MANUAL NEGATIVE (NEGATIVE); BLOOD URINE MANUAL POSITIVE (NEGATIVE); GLUCOSE, URINE (UA) MANUAL NEGATIVE (NEGATIVE); KETONE, URINE MANUAL NEGATIVE (NEGATIVE); LEUKOCYTE ESTERASE, URINE MAN POSITIVE (NEGATIVE); NITRITE, URINE MANUAL NEGATIVE (NEGATIVE); PROTEIN, URINE MANUAL 1+ mg/dL (NEGATIVE); UROBILINOGEN, URINE MANUAL NORMAL (NORMAL)
[2022-11-04 03:20] LABS: RBC, URINE TNTC /hpf (0-3); WBC, URINE TNTC /hpf (0-3)
[2022-11-04 03:21] LABS: SQUAMOUS EPITHELIAL CELL URINE SMALL AMOUNT /hpf (SMALL AMT)
[2022-11-04 03:22] LABS: TRANSITIONAL EPI CELLS, URINE SMALL AMOUNT /hpf
[2022-11-04 03:23] LABS: BACTERIA, URINE SMALL AMOUNT; MUCUS, URINE MOD AMOUNT (NEGATIVE); YEAST, URINE SMALL AMOUNT
[2022-11-04 07:20] LABS: BASO % 0.5 % (0.0-1.0); EOS # 0.6 10^3/uL (0.0-0.5); EOS % 7.7 % (0.0-3.0); HEMATOCRIT 30.8 % (36.0-47.0); HEMOGLOBIN 9.5 g/dl (12.0-15.5); LYMPH # 2.6 10^3/uL (1.5-5.0); LYMPH % 34.4 % (24.0-44.0); MEAN CORPUSCULAR HEMOGLOBIN 34.4 pg (27.0-33.0); MEAN CORPUSCULAR HGB CONC 30.8 g/dl (32.0-36.5); MEAN CORPUSCULAR VOLUME 111.6 fl (80.0-96.0); MONO # 0.5 10^3/uL (0.0-0.8); MONO % 6.8 % (2.0-8.0); NEUTROPHILS # 3.8 10^3/uL (1.5-8.5); NEUTROPHILS % 50.3 % (36.0-66.0); PLATELET COUNT, AUTOMATED 201 10^3/uL (150-450); RED BLOOD COUNT 2.76 10^6/uL (4.00-5.40); WHITE BLOOD COUNT 7.6 10^3/uL (4.0-10.0)
[2022-11-04 10:27] LABS: ALBUMIN 1.6 G/DL (3.2-5.2); CALCIUM LEVEL 9.3 MG/DL (8.3-10.6); CREATININE FOR GFR 1.1 MG/DL (0.55-1.30); GLOMERULAR FILTRATION RATE 52.3 (>39); MAGNESIUM LEVEL 1.2 MG/DL (1.8-2.4); PHOSPHORUS LEVEL 3.7 MG/DL (2.4-5.1); POTASSIUM SERUM 4.4 MMOL/L (3.5-5.1); PTH INTACT 22.6 PG/ML (18.5-88.0); URIC ACID 7.6 MG/DL (3.1-7.8)
== END ==
LOC: SKLAB4 09:49
PROVIDERS: ATTEND Nurse Practitioner Adult Health
DX: N18.9 Chronic kidney disease, unspecified (principal); Z79.899 Other long term (current) drug therapy

== ENCOUNTER → 2022-11-09 | Outpatient (REF) | payer MEDICARE, MEDICAID ==
[2022-11-09 09:42] LABS: BASO % 0.4 % (0.0-1.0); EOS # 0.4 10^3/uL (0.0-0.5); EOS % 3.6 % (0.0-3.0); HEMATOCRIT 32.3 % (36.0-47.0); LYMPH # 2.1 10^3/uL (1.5-5.0); LYMPH % 19.1 % (24.0-44.0); MEAN CORPUSCULAR HEMOGLOBIN 34.8 pg (27.0-33.0); MEAN CORPUSCULAR VOLUME 112.5 fl (80.0-96.0); MONO # 0.8 10^3/uL (0.0-0.8); MONO % 7.2 % (2.0-8.0); NEUTROPHILS # 7.4 10^3/uL (1.5-8.5); NEUTROPHILS % 69.2 % (36.0-66.0); PLATELET COUNT, AUTOMATED 194 10^3/uL (150-450); RED BLOOD COUNT 2.87 10^6/uL (4.00-5.40); WHITE BLOOD COUNT 10.8 10^3/uL (4.0-10.0)
[2022-11-09 10:07] LABS: ALBUMIN 1.7 G/DL (3.2-5.2); BILIRUBIN,TOTAL 0.4 MG/DL (0.3-1.2); CALCIUM LEVEL 9.6 MG/DL (8.3-10.6); CREATININE FOR GFR 1.27 MG/DL (0.55-1.30); GLOMERULAR FILTRATION RATE 44.3 (>39); POTASSIUM SERUM 4.2 MMOL/L (3.5-5.1); TOTAL PROTEIN 5.3 G/DL (5.7-8.2)
== END ==
LOC: SKLAB4 08:39
PROVIDERS: ATTEND Nurse Practitioner Adult Health
DX: N18.9 Chronic kidney disease, unspecified (principal)

== ENCOUNTER → 2022-11-17 | Outpatient (REF) | payer MEDICARE, MEDICAID ==
[2022-11-17 02:27] LABS: APPEARANCE, URINE MANUAL TURBID (CLEAR); COLOR, URINE MANUAL RED (YELLOW)
[2022-11-17 02:28] LABS: BILIRUBIN, URINE MANUAL NEGATIVE (NEGATIVE); GLUCOSE, URINE (UA) MANUAL NEGATIVE (NEGATIVE); KETONE, URINE MANUAL NEGATIVE (NEGATIVE); PROTEIN, URINE MANUAL 2+ mg/dL (NEGATIVE); UROBILINOGEN, URINE MANUAL NORMAL (NORMAL)
[2022-11-17 02:29] LABS: BLOOD URINE MANUAL POSITIVE (NEGATIVE); LEUKOCYTE ESTERASE, URINE MAN POSITIVE (NEGATIVE); NITRITE, URINE MANUAL POSITIVE (NEGATIVE)
[2022-11-17 02:33] LABS: BACTERIA, URINE SMALL AMOUNT; RBC, URINE TNTC /hpf (0-3); SQUAMOUS EPITHELIAL CELL URINE NONE SEEN /hpf (SMALL AMT); WBC, URINE TNTC /hpf (0-3)
[2022-11-17 02:35] LABS: MUCUS, URINE SMALL AMOUNT (NEGATIVE)
== END ==
LOC: SKLAB4 10:18
PROVIDERS: ATTEND Nurse Practitioner Adult Health
DX: N18.9 Chronic kidney disease, unspecified (principal); D64.9 Anemia, unspecified

== ENCOUNTER → 2022-11-17 | Outpatient (REF) | payer MEDICARE, MEDICAID ==
[2022-11-17 13:20] LABS: HEMATOCRIT 37.7 % (36.0-47.0); HEMOGLOBIN 11.5 g/dl (12.0-15.5); MEAN CORPUSCULAR HEMOGLOBIN 35.3 pg (27.0-33.0); MEAN CORPUSCULAR HGB CONC 30.5 g/dl (32.0-36.5); PLATELET COUNT, AUTOMATED 280 10^3/uL (150-450); RED BLOOD COUNT 3.26 10^6/uL (4.00-5.40); WHITE BLOOD COUNT 20.2 10^3/uL (4.0-10.0)
[2022-11-17 13:31] LABS: MEAN CORPUSCULAR VOLUME 115.6 fl (80.0-96.0)
[2022-11-17 13:53] LABS: CALCIUM LEVEL 10.8 MG/DL (8.3-10.6); CREATININE FOR GFR 1.69 MG/DL (0.55-1.30); GLOMERULAR FILTRATION RATE 31.8 (>39); POTASSIUM SERUM 3.6 MMOL/L (3.5-5.1)
== END ==
LOC: SKLAB4 12:17
PROVIDERS: ATTEND Nurse Practitioner Adult Health
DX: R41.82 Altered mental status, unspecified (principal)

== ENCOUNTER → 2022-11-18 | Outpatient (REF) | payer MEDICARE, MEDICAID ==
[2022-11-18 08:16] LABS: BASO # 0.1 10^3/uL (0.0-0.2); BASO % 0.3 % (0.0-1.0); EOS # 0.1 10^3/uL (0.0-0.5); EOS % 0.3 % (0.0-3.0); HEMOGLOBIN 10.6 g/dl (12.0-15.5); LYMPH # 2.6 10^3/uL (1.5-5.0); LYMPH % 8.7 % (24.0-44.0); MEAN CORPUSCULAR HEMOGLOBIN 35.2 pg (27.0-33.0); MEAN CORPUSCULAR HGB CONC 30.3 g/dl (32.0-36.5); MONO # 1.3 10^3/uL (0.0-0.8); MONO % 4.2 % (2.0-8.0); NEUTROPHILS # 25.8 10^3/uL (1.5-8.5); NEUTROPHILS % 85.3 % (36.0-66.0); PLATELET COUNT, AUTOMATED 309 10^3/uL (150-450); RED BLOOD COUNT 3.01 10^6/uL (4.00-5.40)
[2022-11-18 08:36] LABS: MAGNESIUM LEVEL 1.4 MG/DL (1.8-2.4)
[2022-11-18 08:38] LABS: ALBUMIN 1.7 G/DL (3.2-5.2); CALCIUM LEVEL 10.2 MG/DL (8.3-10.6); CREATININE FOR GFR 1.96 MG/DL (0.55-1.30); GLOMERULAR FILTRATION RATE 26.8 (>39); PHOSPHORUS LEVEL 2.8 MG/DL (2.4-5.1); POTASSIUM SERUM 3.7 MMOL/L (3.5-5.1)
[2022-11-18 09:09] LABS: MEAN CORPUSCULAR VOLUME 116.3 fl (80.0-96.0); WHITE BLOOD COUNT 30.2 10^3/uL (4.0-10.0)
[2022-11-18 09:13] LABS: ANISOCYTOSIS 2+; PLATELET ESTIMATE NORMAL (NORMAL)
== END ==
LOC: SKLAB4 09:04
PROVIDERS: ATTEND Nurse Practitioner Adult Health
DX: E83.42 Hypomagnesemia (principal); N18.9 Chronic kidney disease, unspecified